=== PATIENT | female | born 1955 | race Caucasian/White ===

== ENCOUNTER 2020-06-19 20:43 | Inpatient (IN) | payer MEDICARE, OTHER, SELFPAY ==
[2020-06-19 20:52] VITALS: BP 154/82; PULSE 106; RESP 16; TEMP 37.2; O2SAT 99; BMI 30.6
--- NOTE | 2020-06-19 21:01 | PC.NURSE ---
IN ROOM FOR EVAL. REMOVED C-COLLAR. PT ARRIVES ALERT, RESPIRATIONS EASY, N/L. SKIN W/D. PT HAS DRESSINGS TO GRAY FEET. PT HAS GREAT TOE AMP TO RIGHT FOOT. PT HAS DIABETIC ULCER TO HEEL OF RIGHT FOOT AND DM ULCER TO BOTTOM OF LEFT FOOT. DRESSINGS REMOVED BY .
--- NOTE | 2020-06-19 21:12 | CT_ITS ---
EXAMINATION: CT HEAD WITHOUT CONTRAST CT CERVICAL SPINE WITHOUT CONTRAST CLINICAL INFORMATION: Multiple falls COMPARISON: None. TECHNIQUE: Imaging was performed from the skull base to vertex without intravenous administration of contrast. In addition, helical noncontrast CT imaging was acquired through the cervical spine and source images were reviewed along with axial reconstructions and sagittal and coronal MPRs. [This CT examination was performed using dose optimization techniques as appropriate, variously including the following: *Automated exposure control *Adjustment of mA and/or kV according to patient size (this includes techniques or standardized protocols for targeted exams where dose is matched to indication/reason for exam; i.e. extremities or head) *Use of iterative reconstruction technique] DLP: 942 mGy-cm FINDINGS: HEAD: No intracranial mass, hemorrhage, or midline shift is visualized. There is age-appropriate atrophy with prominence of the ventricles and the sulci. There are vascular calcifications of the internal carotid arteries bilaterally. No extra-axial collections are identified. The paranasal sinuses and mastoid air cells are well aerated. CERVICAL SPINE: There is no evidence of acute cervical spine fracture. Vertebral bodies remain normal in height. Cervical vertebrae have normal alignment. There is multilevel degenerative spondylosis of the cervical spine with disc height narrowing and endplate spurs and facet joint arthrosis No pre- or paravertebral soft tissue abnormality is identified. Limited assessment of the lung apices is unremarkable. CT/CT cervical spine wo con IMPRESSION: 1. No acute intracranial pathology. 2. No CT evidence of acute cervical spine fracture or traumatic subluxation
--- NOTE | 2020-06-19 21:13 | ECG_ITS ---
Test Reason : FALL Blood Pressure : / mmHG Vent. Rate : 100 BPM Atrial Rate : 100 BPM P-R Int : 130 ms QRS Dur : 088 ms QT Int : 388 ms P-R-T Axes : 057 020 050 degrees QTc Int : 500 ms Normal sinus rhythm Prolonged QT Abnormal ECG No previous ECGs available Referred By: Josiane Jules Electronically Signed By:KEREN RODGERS
--- NOTE | 2020-06-19 21:15 | ED.FALL ---
HPI - Fall General Chief Complaint: Fall Stated Complaint: BILATERAL ARM AND LEG PAIN S/P FALL Time Seen by Provider: 06/19/20 20:55 Source: patient Mode of arrival: EMS Limitations: no limitations History of Present Illness HPI Narrative: Patient comes to the emergency room complaining of 3 falls in 2 days. Patient states yesterday she had 2 falls, on the 1st fall she woke up on the floor because her phone started ringing. later yesterday she had a 2nd fall, patient states she tripped. Prior to arrival, patient had another fall. This time she decided to come to the emergency room. Patient has Life Alert, she was helped yesterday to get up, however patient keeps tripping and falling. Patient states she has no chest pain, no shortness of breath, no dizziness. Patient states she has history of multiple falls in the past. Patient denies being on blood thinners. patient states that she has neuropathy in her feet, however she is able to feel her feet. MD complaint: fall Related Data Allergies Allergy/AdvReac Type Severity Reaction Status Date / Time chlorthalidone Allergy Unknown ACUTE Unverified 03/28/20 18:54 [CHLORTHALIDONE] RENAL FAILURE Iodine and Iodide Containing Allergy Unknown UNKNOWN Unverified 03/28/20 18:54 Produc [IODINE AND IODIDE CONTAINING PRODUC] levofloxacin [From LEVAQUIN] AdvReac Unknown NAUSEA & Unverified 03/28/20 18:54 VOMITING Penicillins [PENICILLINS] AdvReac Unknown RASH Unverified 03/28/20 18:54 Sulfa (Sulfonamide AdvReac Unknown RASH Unverified 03/28/20 18:54 Antibiotics) [SULFA (SULFONAMIDE ANTIBIOTICS)] TAPE,PAPER Allergy Unknown UNKNOWN Uncoded 03/28/20 18:54 Review of Systems Review of Systems: Constitutional : No Weight loss, No Fever, No Chills, No Night Sweats, No Fatigue, No Malaise ENT/Mouth : No Hearing loss, No Ear Pain, No Nasal Congestion, No Sinus Pain, No Hoarseness, No sore throat, No Rhinorrhea, No Swallowing Difficulty Eyes: No Eye Pain, No Swelling, No Redness, No Foreign Body, No Discharge, No Vision Changes Cardiovascular : No Chest Pain, No SOB, No Dyspnea on Exertion, No Orthopnea, No Edema, No Palpitations Respiratory : No Cough, No Sputum, No Wheezing, No Smoke Exposure, No Dyspnea Gastrointestinal : No Nausea, No Vomiting, No Diarrhea, No Constipation, No abdominal Pain, No Hematochezia, No Melena Genitourinary : no irregular bleeding, No Dysuria, No Urinary Frequency, No Hematuria, No Urinary Incontinence, No Urgency, No Flank Pain, No Urinary Flow Changes, No Hesitancy Musculoskeletal : Patient complaining right shoulder pain, No Myalgias, No Joint Swelling Skin : chronic diabetic ulcers in both feet Neuro : No Weakness, No Numbness, No Paresthesias, 1 episode of loss of consciousness yesterday after a fall, No Dizziness, No Headache Psych : No Anxiety/Panic, No Depression, No SI/HI/AH/VH, No Social Issues, Heme/Lymph: No Bruising, No Bleeding,No Lymphadenopathy Endocrine : No Polyuria, No Polydipsia, No Temperature Intolerance [facility] Past Medical History Medical History (Updated 06/20/20 @ 03:32 by Josiane Jules MD) Carcinoid tumor Diabetic foot ulcers Hypertension Hypothyroidism Type 2 diabetes mellitus Social History Social History Advance Directives: No Advance Directives Information Provided: Yes Physical Exam Vital Signs: Vital Signs: Last Vital Signs Temp 98.9 F 06/19/20 20:52 Pulse 86 06/20/20 02:00 Resp 16 06/20/20 02:00 BP 143/68 H 06/20/20 02:00 Pulse Ox 97 06/20/20 02:00 Body Mass Index 30.6 Appearance: Alert. Oriented X3. No acute distress. Eyes: Pupils equal, round and reactive to light. ENT: Pharynx normal. Neck: Normal inspection. Neck supple. No lymph nodes noted. No crepitus CVS: Normal heart rate and rhythm. Pulses normal. Normal S1 and S2 Respiratory: No respiratory distress. Breath sounds normal. No Wheezing. No rales Abdomen: Soft and nontender. No rigidity. No distention. good BS x4 Skin: Skin warm and dry. bilateral large diabetic foot ulcers, clean, healing Extremities: No lower extremity edema. patient unable to abduct right arm due to pain in the right shoulder Neuro: Oriented X 3. No motor deficit. No sensory deficit. Moving all extermities. No slurred speech. Course Course Course Narrative: I discussed the labs with the patient, patient is being admitted. Patient's CPK likely secondary to being on the floor for a prolonged period of time. Patient's troponin 54.3, likely secondary to the elevated CPK, patient is asymptomatic, no chest pain or shortness of breath, EKG within normal limits. MDM - Fall Lab Data Result diagrams: 06/19/20 21:48 06/19/20 21:47 Labs: Lab Results 06/19/20 06/19/20 06/19/20 Range/Units 21:47 21:47 21:47 WBC (4.8-10.8) X10*3/uL RBC (4.20-5.50) X10*6/uL Hgb (12.0-16.0) g/dl Hct (37-47) % MCV (80-98) fL MCH (27.0-33.0) pg MCHC (31.0-35.0) g/dl RDW (11.0-16.0) % Plt Count (160-400) X10*3/uL MPV (9.4-12.3) fL Immature Gran % (Auto) (0.0-0.4) % Neut % (Auto) (45-73) % Lymph % (Auto) (20-40) % [place] % (Auto) (2-11) % Eos % (Auto) (0-4) % Baso % (Auto) (0-2) % Lymph # (Auto) (1.2-4.9) X10*3/uL [place] # (Auto) (0.1-1.2) X10*3/uL Eos # (Auto) (0.0-0.4) X10*3/uL Baso # (Auto) (0.0-0.2) X10*3/uL Abs Immat Gran (auto) (0.00-0.03) X10*3/uL Absolute Neuts (auto) (2.0-8.3) X10*3/uL Absolute Nucleated RBC (0.0-0.012) X10*3/uL Nucleated RBC % (auto) (0.0-0.2) /100WBC Sodium 129 L (135-145) mmol/L Potassium 4.0 (3.3-5.1) mmol/l Chloride 93 L (96-108) mmol/L Carbon Dioxide 24 (22-29) mmol/L Anion Gap 16 (12-20) BUN 24 H (9-16) mg/dL Creatinine 1.30 (0.5-1.4) mg/dL Estim Creat Clear Calc 46.3 Estimated GFR 41 Random Glucose 307 H (60-115) mg/dL Calcium 8.5 (8.4-10.2) mg/dL Magnesium 1.6 (1.6-2.6) mg/dL Total Bilirubin 0.3 (0.0-1.0) mg/dL Direct Bilirubin < 0.2 (0.0-0.5) mg/dL AST 169 H (5-31) U/L ALT 67 H (0-31) U/L Alkaline Phosphatase 93 (39-117) U/L Total Creatine Kinase 9438 H (26-140) U/L Troponin I High Sens 54.3 H (<3.5-17.0) ng/L Total Protein 7.1 (6.5-8.0) g/dL Albumin 3.7 (3.5-5.0) g/dL Urine Color Urine Appearance Urine pH (5.0-8.0) Ur Specific [place] (1.005-1.025) Urine Protein (NEG-TRACE) MG/DL Urine Glucose (UA) (NEG) MG/DL Urine Ketones (NEG) MG/DL Urine Blood (NEG) Urine Nitrite (NEG) Ur Leukocyte Esterase (NEG) Urine RBC (0) /HPF Urine WBC (0-4) /HPF Ur Squamous Epith Cells /LPF Urine Bacteria /LPF 06/19/20 06/19/20 Range/Units 21:48 22:58 WBC 13.9 H (4.8-10.8) X10*3/uL RBC 2.98 L (4.20-5.50) X10*6/uL Hgb 8.6 L (12.0-16.0) g/dl Hct 26.0 L (37-47) % MCV 87.2 (80-98) fL MCH 28.9 (27.0-33.0) pg MCHC 33.1 (31.0-35.0) g/dl RDW 12.5 (11.0-16.0) % Plt Count 428 H (160-400) X10*3/uL MPV 9.9 (9.4-12.3) fL Immature Gran % (Auto) 0.6 H (0.0-0.4) % Neut % (Auto) 78.9 H (45-73) % Lymph % (Auto) 9.1 L (20-40) % [place] % (Auto) 10.6 (2-11) % Eos % (Auto) 0.4 (0-4) % Baso % (Auto) 0.4 (0-2) % Lymph # (Auto) 1.3 (1.2-4.9) X10*3/uL [place] # (Auto) 1.5 H (0.1-1.2) X10*3/uL Eos # (Auto) 0.1 (0.0-0.4) X10*3/uL Baso # (Auto) 0.1 (0.0-0.2) X10*3/uL Abs Immat Gran (auto) 0.09 H (0.00-0.03) X10*3/uL Absolute Neuts (auto) 11.0 H (2.0-8.3) X10*3/uL Absolute Nucleated RBC 0.000 (0.0-0.012) X10*3/uL Nucleated RBC % (auto) 0.0 (0.0-0.2) /100WBC Sodium (135-145) mmol/L Potassium (3.3-5.1) mmol/l Chloride (96-108) mmol/L Carbon Dioxide (22-29) mmol/L Anion Gap (12-20) BUN (9-16) mg/dL Creatinine (0.5-1.4) mg/dL Estim Creat Clear Calc Estimated GFR Random Glucose (60-115) mg/dL Calcium (8.4-10.2) mg/dL Magnesium (1.6-2.6) mg/dL Total Bilirubin (0.0-1.0) mg/dL Direct Bilirubin (0.0-0.5) mg/dL AST (5-31) U/L ALT (0-31) U/L Alkaline Phosphatase (39-117) U/L Total Creatine Kinase (26-140) U/L Troponin I High Sens (<3.5-17.0) ng/L Total Protein (6.5-8.0) g/dL Albumin (3.5-5.0) g/dL Urine Color YELLOW Urine Appearance CLEAR Urine pH 5.5 (5.0-8.0) Ur Specific [place] 1.020 (1.005-1.025) Urine Protein 2+ H (NEG-TRACE) MG/DL Urine Glucose (UA) 100 H (NEG) MG/DL Urine Ketones NEG (NEG) MG/DL Urine Blood 3+ H (NEG) Urine Nitrite NEG (NEG) Ur Leukocyte Esterase NEG (NEG) Urine RBC 0-2 (0) /HPF Urine WBC 0 (0-4) /HPF Ur Squamous Epith Cells 1+ /LPF Urine Bacteria 1+ /LPF Imaging Data Shoulder x-ray: Radiologist's impression: There is loss of right humeral joint space with minimal superior subluxation suspicious for mild rotator cuff degeneration. Subchondral cystic changes and minimal sclerosis along the articulating humeral head. Mild periarticular spurring right AC joint is noted. No visible acute fracture or dislocation seen. The soft tissues are normal. XR/XR shoulder RT min 2V IMPRESSION: No acute fracture or dislocation. Mild degenerative changes right AC joint and glenohumeral joint. There Mild superior subluxation of humeral head in relation to glenoid likely RC degeneration or tear. head and neck CT: Radiologist's impression: HEAD: No intracranial mass, hemorrhage, or midline shift is visualized. There is age-appropriate atrophy with prominence of the ventricles and the sulci. There are vascular calcifications of the internal carotid arteries bilaterally. No extra-axial collections are identified. The paranasal sinuses and mastoid air cells are well aerated. CERVICAL SPINE: There is no evidence of acute cervical spine fracture. Vertebral bodies remain normal in height. Cervical vertebrae have normal alignment. There is multilevel degenerative spondylosis of the cervical spine with disc height narrowing and endplate spurs and facet joint arthrosis No pre- or paravertebral soft tissue abnormality is identified. Limited assessment of the lung apices is unremarkable. CT/CT head/brain wo con IMPRESSION: 1. No acute intracranial pathology. 2. No CT evidence of acute cervical spine fracture or traumatic subluxation ECG Data Attestation: I personally reviewed and interpreted this ECG as follows: ( normal sinus rhythm, heart rate 100, prolonged QTC 500) Discharge Plan Discharge Clinical Impression: Elevated CPK, Acute hyponatremia, Multiple falls Patient Disposition: Admitted As Inpatient
--- NOTE | 2020-06-19 21:17 | XR_ITS ---
EXAMINATION: XR SHOULDER, RIGHT CLINICAL INFORMATION: Fall, pain. COMPARISON: None TECHNIQUE: AP external rotation, Grashey, scapular Y, and axillary views of the right shoulder. FINDINGS: There is loss of right humeral joint space with minimal superior subluxation suspicious for mild rotator cuff degeneration. Subchondral cystic changes and minimal sclerosis along the articulating humeral head. Mild periarticular spurring right AC joint is noted. No visible acute fracture or dislocation seen. The soft tissues are normal. XR/XR shoulder RT min 2V IMPRESSION: No acute fracture or dislocation. Mild degenerative changes right AC joint and glenohumeral joint. There Mild superior subluxation of humeral head in relation to glenoid likely RC degeneration or tear.
[2020-06-19 22:00] VITALS: BP 149/72; PULSE 99; RESP 16; O2SAT 97
[2020-06-19 22:05] LABS: MANUAL DIFF FLAG NO
[2020-06-19 22:10] LABS: Basophils Absolute Auto 0.1 X10*3/uL (0.0-0.2); Basophils Percent Auto 0.4 % (0-2); Eosinophils Absolute Auto 0.1 X10*3/uL (0.0-0.4); Eosinophils Percent Auto 0.4 % (0-4); Hemoglobin 8.6 g/dl (12.0-16.0); Imm Gran Abs Auto 0.09 X10*3/uL (0.00-0.03); Imm Gran Pct Auto 0.6 % (0.0-0.4); Lymphocytes Absolute Auto 1.3 X10*3/uL (1.2-4.9); Lymphocytes Percent Auto 9.1 % (20-40); Mean Corpuscular HGB Conc 33.1 g/dl (31.0-35.0); Mean Corpuscular Hemoglobin 28.9 pg (27.0-33.0); Mean Corpuscular Volume 87.2 fL (80-98); Mean Platelet Volume 9.9 fL (9.4-12.3); Monocytes Absolute Auto 1.5 X10*3/uL (0.1-1.2); Monocytes Percent Auto 10.6 % (2-11); Neutrophils Percent Auto 78.9 % (45-73); Platelet Count 428 X10*3/uL (160-400); Red Blood Count 2.98 X10*6/uL (4.20-5.50); Red Cell Distribution Width 12.5 % (11.0-16.0); White Blood Count 13.9 X10*3/uL (4.8-10.8)
[2020-06-19 23:01] LABS: Alanine Aminotransferase 67 U/L (0-31); Albumin Level 3.7 g/dL (3.5-5.0); Alkaline Phosphatase 93 U/L (39-117); Anion Gap 16 (12-20); Aspartate Amino Transferase 169 U/L (5-31); Bilirubin Direct < 0.2 mg/dL (0.0-0.5); Bilirubin Total 0.3 mg/dL (0.0-1.0); Blood Urea Nitrogen 24 mg/dL (9-16); Calcium 8.5 mg/dL (8.4-10.2); Carbon Dioxide 24 mmol/L (22-29); Chloride 93 mmol/L (96-108); Creatinine Clr Calc Pharmacy 46.3; Estimated Glomerular Filt Rate 41; Glucose Random 307 mg/dL (60-115); Magnesium 1.6 mg/dL (1.6-2.6); Sodium 129 mmol/L (135-145); Total Protein 7.1 g/dL (6.5-8.0)
[2020-06-19 23:03] LABS: Glucose Urine UA 100 MG/DL (NEG); Leukocyte Esterase Urine NEG (NEG); Nitrite Urine NEG (NEG); PH 5.5 (5.0-8.0); Urine Blood 3+ (NEG); Urine Ketones NEG (NEG); Urine Protein 2+ MG/DL (NEG-TRACE)
[2020-06-19 23:07] LABS: Appearance Urine CLEAR; Color Urine YELLOW
[2020-06-19 23:13] LABS: Bacteria Urine 1+ /LPF; RBC Urine 0-2 /HPF (0); Squamous Epithelial Cell Urine 1+ /LPF; WBC Urine 0 /HPF (0-4)
[2020-06-19 23:38] LABS: Troponin-I High Sensitivity 54.3 ng/L (<3.5-17.0)
[2020-06-20] VITALS (11 sets, daily range): BP systolic 121–143; BP diastolic 58–80; PULSE 78–99; RESP 16–20; TEMP 36.2–36.7; O2SAT 92–100; BMI 30.6
--- NOTE | 2020-06-20 01:05 | PC.NURSE ---
PT C/O PAIN TO GRAY SHOULDERS AND RIGHT SIDE OF BODY. PT STATES I WOULD HAVE GONE TO [facility] IF I WOULD HAVE KNOWN THAT IS CANT GET ANY PAIN MEDS HERE MD AWARE. PT RATING PAIN 02/18. WILL CONTINUE TO MONITOR PT.
--- NOTE | 2020-06-20 02:29 | PC.NURSE ---
PT IS COMPLAINING ABOUT
[2020-06-20] MEDS: 0.9 % Sodium Chloride 1,000 ML 999 ML IV (03:09)
[2020-06-20] MEDS: 0.9 % Sodium Chloride 1,000 ML 999 ML IVCONT (03:40)
--- NOTE | 2020-06-20 03:41 | PC.NURSE ---
2NDL OF NS UP AND RUNNING W/O, SITE INTACT. AWAITING FURTHER ORDERS.
[2020-06-20 04:15] LABS: COVID-19 Test Negative (Negative)
[2020-06-20] MEDS: Acetaminophen 325 MG TABLET 650 MG PO (04:46)
[2020-06-20 05:12] LABS: Troponin-I High Sensitivity 42.2 ng/L (<3.5-17.0)
--- NOTE | 2020-06-20 05:13 | PC.NURSE ---
COVID SWAB OBTAINED TO LAB. 2ND L INFUSED W/O DIFFICULTY. PT UP TO COMMODE
--- NOTE | 2020-06-20 05:33 | PC.NURSE ---
floor unable to take report at this time. will return call.
--- NOTE | 2020-06-20 06:16 | P.HPHOSP_ITS ---
History of Present Illness Date of Service: 06/20/20 Chief Complaint: Falls This is a 65-year-old female with past medical history of hypertension, diabetes, carcinoid, and falls in the past who presents to the hospital with complaints of multiple falls at home. Patient reports that the 1st episode occurred on Wednesday after she came out of her bathroom, she fell on the floor, and woke up 4 hours later to the phone ringing. Patient does not remember anything of that episode, will cover confused, she denies any prodromal symptoms, she denies having any palpitations, dizziness, shortness of breath, chest pain or any other symptoms prior to the fall. She woke up DrMarifer herself to the bed. The same day in the evening, patient tried to go to the bathroom, and slipped and had a fall in her kitchen without hitting her head she was again on the floor for about 4 hours because she was too weak to get up.. She finally called [facility], EMS wanted to bring her to the hospital but patient refused. She reports that on Wednesday evening she was again walking around her apartment where she once again had a mechanical fall without loss of consciousness, she denies having any dizziness, vertigo, palpitations, chest pain, or loss of consciousness on the consecutive fall episodes. She finally agreed to come to the hospital after her 3rd fall. 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 Denies any melena or bright red blood per rectum Patient reports that she has not eaten well in last 24 hours but otherwise has been eating and drinking okay. She had few episodes of diarrhea where she took Lomotil and felt better, she denies any chest pain, no shortness of breath, no nausea or vomiting, no abdominal pain,, no urinary symptoms and no lower extremity edema. On arrival to the ED patient hemodynamically stable with no significant abnormal vitals Labs are significant for WBC count of 13.9, hemoglobin of 8.6, hematocrit 26.0, corrected sodium of 134, BUN of 24, creatinine of 1.30, random glucose of 307, AST of 169, ALT of 67, CPK of 9438, high sensitivity troponin of 54, repeated of 42.2. Past medical history: Hypertension, asthma, depression, diabetes with ne uropathy,carcinoid tumor Past surgical history: Liver lobectomy, cholecystectomy, appendectomy Family history: Significant for lung cancer in her father and sister, mom suffered from coronary artery disease Social history: Lives at home alone, uses a walker to ambulate, denies any tobacco alcohol or illicit drugs at this time Review of Systems 2 Review of Systems: Yes all other systems are reviewed and are negative [facility] Medical History (Updated 06/20/20 @ 06:52 by Jojo Mendoza MD) Carcinoid tumor Diabetic foot ulcers Hypertension Hypothyroidism Type 2 diabetes mellitus Social History Advance Directives: No Advance Directives Information Provided: Yes Meds Allergies Allergy/AdvReac Type Severity Reaction Status Date / Time chlorthalidone Allergy Unknown ACUTE Unverified 03/28/20 18:54 [CHLORTHALIDONE] RENAL FAILURE Iodine and Iodide Containing Allergy Unknown UNKNOWN Unverified 03/28/20 18:54 Produc [IODINE AND IODIDE CONTAINING PRODUC] levofloxacin [From LEVAQUIN] AdvReac Unknown NAUSEA & Unverified 03/28/20 18:54 VOMITING Penicillins [PENICILLINS] AdvReac Unknown RASH Unverified 03/28/20 18:54 Sulfa (Sulfonamide AdvReac Unknown RASH Unverified 03/28/20 18:54 Antibiotics) [SULFA (SULFONAMIDE ANTIBIOTICS)] TAPE,PAPER Allergy Unknown UNKNOWN Uncoded 03/28/20 18:54 Home Medications Medication Instructions Recorded Confirmed Type amlodipine 1 tab PO DAILY 06/20/20 06/20/20 History aspirin 81 mg PO 06/20/20 History cholecalciferol (vitamin D3) 800 units PO DAILY 06/20/20 06/20/20 History cyanocobalamin (vitamin B-12) 500 mcg PO DAILY 06/20/20 06/20/20 History doxycycline hyclate 1 tab PO BID 06/20/20 06/20/20 History duloxetine 1 cap PO QAM 06/20/20 06/20/20 History furosemide 1 tab PO DAILY 06/20/20 06/20/20 History levothyroxine 1 tab PO DAILY 06/20/20 06/20/20 History losartan 1 tab PO DAILY 06/20/20 06/20/20 History melatonin 2 tab PO BEDTIME 06/20/20 06/20/20 History metformin 2 tab PO BEDTIME 06/20/20 06/20/20 History metoprolol succinate 1 tab PO DAILY 06/20/20 06/20/20 History pantoprazole 1 tab PO DAILY 06/20/20 06/20/20 History simvastatin 1 tab PO BEDTIME 06/20/20 06/20/20 History trazodone 1 - 2 tab PO BEDTIME PRN 06/20/20 06/20/20 History Physical Exam Vital Signs and Narrative: Vital Signs: Last Vital Signs Temp 98.9 F 06/19/20 20:52 Pulse 89 06/20/20 04:00 Resp 18 06/20/20 04:00 BP 142/68 H 06/20/20 04:00 Pulse Ox 96 06/20/20 04:00 Body Mass Index 30.6 Const: General: cooperative and no acute distress Orientation/consciousness: patient oriented x3 Eyes: General: appearance normal, both eyes and all related structures Pupils: Equal, round and reactive pupils present Resp: Effort & Inspection: normal respiratory effort and able to speak in complete sentences Auscultation: clear to auscultation bilaterally Cardio: Rate: regular rate Rhythm: regular rhythm GI: Palpation (GI): Soft to palpation Auscultation: normal bowel sounds Skin: General skin exam: no rashes or lesions noted Neuro: General: patient oriented x3 Cranial nerves: Yes Equal, round and reactive pupils present Cognition (Neuro): normal cognition Extrem: General: Yes no pedal edema Results Labs CBC and Chem 7: 06/19/20 21:48 06/19/20 21:47 Labs: Laboratory Results - last 24 hr 06/19/20 06/19/20 06/19/20 21:47 21:47 21:47 MCV MCH MCHC RDW Plt Count MPV Immature Gran % (Auto) Neut % (Auto) Lymph % (Auto) B[place] % (Auto) Eos % (Auto) Baso % (Auto) Lymph # (Auto) [place] # (Auto) Eos # (Auto) Baso # (Auto) Abs Immat Gran (auto) Absolute Neuts (auto) Absolute Nucleated RBC Nucleated RBC % (auto) Anion Gap 16 Estim Creat Clear Calc 46.3 Estimated GFR 41 Random Glucose 307 H Calcium 8.5 Magnesium 1.6 Total Bilirubin 0.3 Direct Bilirubin < 0.2 AST 169 H ALT 67 H Alkaline Phosphatase 93 Total Creatine Kinase 9438 H Troponin I High Sens 54.3 H Total Protein 7.1 Albumin 3.7 Urine Color Urine Appearance Urine pH Ur Specific [place] Urine Protein Urine Glucose (UA) Urine Ketones Urine Blood Urine Nitrite Ur Leukocyte Esterase Urine RBC Urine WBC Ur Squamous Epith Cells Urine Bacteria COVID-19 ([facility]) COVID-19 Clin Com 06/19/20 06/19/20 06/20/20 21:48 22:58 03:48 MCV 87.2 MCH 28.9 MCHC 33.1 RDW 12.5 Plt Count 428 H MPV 9.9 Immature Gran % (Auto) 0.6 H Neut % (Auto) 78.9 H Lymph % (Auto) 9.1 L [place] % (Auto) 10.6 Eos % (Auto) 0.4 Baso % (Auto) 0.4 Lymph # (Auto) 1.3 [place] # (Auto) 1.5 H Eos # (Auto) 0.1 Baso # (Auto) 0.1 Abs Immat Gran (auto) 0.09 H Absolute Neuts (auto) 11.0 H Absolute Nucleated RBC 0.000 Nucleated RBC % (auto) 0.0 Anion Gap Estim Creat Clear Calc Estimated GFR Random Glucose Calcium Magnesium Total Bilirubin Direct Bilirubin AST ALT Alkaline Phosphatase Total Creatine Kinase Troponin I High Sens Total Protein Albumin Urine Color YELLOW Urine Appearance CLEAR Urine pH 5.5 Ur Specific [place] 1.020 Urine Protein 2+ H Urine Glucose (UA) 100 H Urine Ketones NEG Urine Blood 3+ H Urine Nitrite NEG Ur Leukocyte Esterase NEG Urine RBC 0-2 Urine WBC 0 Ur Squamous Epith Cells 1+ Urine Bacteria 1+ COVID-19 ([facility]) Negative COVID-19 Clin Com See Note 06/20/20 03:56 MCV MCH MCHC RDW Plt Count MPV Immature Gran % (Auto) Neut % (Auto) Lymph % (Auto) [place] % (Auto) Eos % (Auto) Baso % (Auto) Lymph # (Auto) [place] # (Auto) Eos # (Auto) Baso # (Auto) Abs Immat Gran (auto) Absolute Neuts (auto) Absolute Nucleated RBC Nucleated RBC % (auto) Anion Gap Estim Creat Clear Calc Estimated GFR Random Glucose Calcium Magnesium Total Bilirubin Direct Bilirubin AST ALT Alkaline Phosphatase Total Creatine Kinase Troponin I High Sens 42.2 H Total Protein Albumin Urine Color Urine Appearance Urine pH Ur Specific [place] Urine Protein Urine Glucose (UA) Urine Ketones Urine Blood Urine Nitrite Ur Leukocyte Esterase Urine RBC Urine WBC Ur Squamous Epith Cells Urine Bacteria COVID-19 ([facility]) COVID-19 Clin Com Imaging Radiologist's Impressions: Impressions Cervical Spine CT 06/19/20 21:12 IMPRESSION: 1. No acute intracranial pathology. 2. No CT evidence of acute cervical spine fracture or traumatic subluxation Head CT 06/19/20 21:12 IMPRESSION: 1. No acute intracranial pathology. 2. No CT evidence of acute cervical spine fracture or traumatic subluxation Shoulder X-Ray 06/19/20 21:17 IMPRESSION: No acute fracture or dislocation. Mild degenerative changes right AC joint and glenohumeral joint. There Mild superior subluxation of humeral head in relation to glenoid likely RC degeneration or tear. Assessment and Plan (1) Rhabdomyolysis: Status: Acute (2) FELIX (acute kidney injury): Status: Acute (3) Macrocytic anemia: Status: Acute (4) Multiple falls: Status: Acute (5) Type 2 diabetes mellitus: Status: Inactive (6) Hypertension: Status: Acute (7) Hypothyroidism: Status: Acute This is a 65-year-old female with past medical history as mentioned above who presents to the hospital with complaints of frequent falls. Found to have rhabdomyolysis, FELIX, might add and will be admitted for further management. # FELIX - most likely secondary to rhabdomyolysis, no baseline creatinine on file to compare but patient has elevated BUN and creatinine, and elevated CPK Plan: - IV fluids - hold some of the nephrotoxic medications including furosemide - will follow BMP # rhabdomyolysis - secondary to falls and being a mobile on the floor for more than 4 hours on multiple occasions - has mild FELIX as a result - will start patient on IV fluids - follow CPK # microcytic anemia - no baseline for comparison - has normal MCV, denies melena or bright red blood per rectum - will obtain ferritin level, B12, folic acid, - follow CBC # multiple falls - most likely multifactorial including in the setting of neuropathy - has no acute infection - will consult PT # diabetes mellitus - will hold metformin - start on low-dose sliding scale insulin - diabetic diet # hypertension -continue amlodipine, losartan, # hypothyroidism - continue levothyroxine DVT prophylaxis: Lovenox
[2020-06-20] MEDS: 0.9 % Sodium Chloride Flush 3 ML SYRINGE IVFLUSH (08:44)
[2020-06-20] MEDS: Insulin Lispro 100 UNIT/ML 3 ML VIAL SUBCUT ×4 (08:45→20:47)
[2020-06-20] MEDS: Enoxaparin Sodium 40 MG/0.4 ML SYRINGE SUBCUT (08:45)
[2020-06-20] MEDS: 0.9 % Sodium Chloride 1,000 ML 100 ML IVCONT ×2 (08:45→22:31)
[2020-06-20] MEDS: Omeprazole 20 MG CAPSULE.DR PO (08:45)
[2020-06-20] MEDS: Metoprolol Succinate ER 50 MG TAB.ER.24H PO (08:46)
[2020-06-20] MEDS: amLODIPine Besylate 10 MG TABLET PO (08:46)
[2020-06-20] MEDS: Losartan Potassium 50 MG TABLET PO (08:46)
[2020-06-20] MEDS: DULoxetine HCl 60 MG CAPSULE.DR PO (08:46)
[2020-06-20 09:01] LABS: Glucose, Whole Blood 248 mg/dL (60-115)
--- NOTE | 2020-06-20 10:11 | MHC.CM.PN ---
CM met with patient who reports she lives alone and amb with a walker, has been having difficulty with falls r/t neuropathy and toe amp. Patient states her HCP is her sister Marcia [phone], copy requested. Discussed discharge plan, patient is active with [facility], referral made via [facility] and requesting home PT. [facility] will provide transport. CM will continue to follow patient for discharge needs.
--- NOTE | 2020-06-20 10:32 | CA_ITS ---
Transthoracic Echocardiogram Patient (Last, First, Middle): Zara Hoffman, Gender: Female Date of : 1955 Age: 65 Procedure Date: 06/20/2020 Procedure Type: Transthoracic [place] [facility] [place]: 167.64 cm Weight: 75.75 kg BSA: 1.85 m2 Heart Rate: bpm BP: 126 / 58 mmHg Couture Alterations Dressmaker: MARY Referring MD: Marcella XIE Symptoms: syncope Study Quality: Good ECG Rhythm: Sinus Conclusions: - The left ventricular systolic function is low normal. The visually estimated ejection fraction is between 50-55%. - No obvious valvular pathology seen on this study. Findings Left Ventricle Normal left ventricular cavity size. There is normal left ventricular wall thickness. The left ventricular systolic function is low normal. The visually estimated ejection fraction is between 50-55%. There is no evidence of regional wall motion abnormalities. Diastolic function is normal for age. Right Ventricle Normal right ventricular cavity size and systolic function. Aortic Valve There is a normal trileaflet aortic valve. There is no aortic valve stenosis. There is trace (trivial) aortic valve regurgitation. Mitral Valve There is mild anterior mitral leaflet thickening. There is trace mitral valve regurgitation. There is no mitral valve stenosis. Pulmonic Valve The pulmonic valve was not well visualized. Tricuspid Valve Normal tricuspid valve structure. There is trace tricuspid valve regurgitation. The pulmonary artery systolic pressure is normal. Great Vessels The asc aorta and aortic arch are normal in size. Venous The inferior vena cava is normal in size and collapses greater than 50% with inspiration. Pericardium/Pleural There is no evidence of pericardial effusion. Prior Study Comparison No prior study available for comparison. Recommendations, Care & Conclusions No obvious valvular pathology seen on this study. Measurements 2D Linear Measurements RVIDd: 2.43 RVIDd Index: 1.31 IVSd: 0.84 0.6-0.9/0.6-1.0 cm LVIDd: 5.13 3.9-5.3/4.2-5.9 cm LVIDd Index: 2.77 2.4-3.2/2.2-3.1 cm/m2 LVIDs: 2.87 2.0-3.6 cm LVPWd: 1.16 0.7-1.1 cm Ao Root: 3.10 2.1-3.5 cm LA Diam: 3.70 2.7-3.8/3.0-4.0 cm LAIDs Index: 2.00 1.5-2.3 cm/m2 LV Mass: 236.56 67-162/88-224 g LV Mass Index: 127.87 43-95/49-115 g/m2 LVOT Diam: 2.30 3.0+(-)1.3 cm 2D Systolic Function EF 4C: 49.40 >55% EF 2C: 46.00 >55% EF BiP: 48.90 >55% Mitral Valve MV Pk E: 0.78 MV PK A: 0.81 MV Decel Time: 198.00 E/A: 1.00 E'Lateral: 7.07 E'Medial: 4.90 E/E' Med: 15.90 E/E' Lat: 11.00 Aortic Valve AoV Pk Darnell: 1.74 AoV Mn Darnell: 1.22 AoV VTI: 0.28 AoV Pk Grad: 12.00 Aov Mn Grad: 7.00 SATISH Cont.VTI: 2.70 LVOT LVOT Pk Darnell: 1.08 LVOT Mn Darnell: 0.72 LVOT VTI: 0.18 LVOT Pk Grad: 5.00 LVOT Mn Grad: 2.00 LVOT Diam: 2.30 LVOT Area: 4.15 Diastolic Function MV Pk E: 0.78 MV Pk A: 0.81 E/A: 1.00 E'Medial: 4.90 E/E' Med: 15.90 E' Laterial: 7.07 E/E' Lat: 11.00 Tricuspid Valve RA Press: 3.00 Great Vessels Aorta Ao Root-2D: 3.10 2.0-3.7 cm Ao Asc: 2.70 2.1-3.4 cm Ao Arch: 2.80 Updated in Other Vendor System with Status of Final Sam Sanabria MD electronically signed on 06/20/2020 5:07:42 PM with status of Final
[2020-06-20 11:06] LABS: Glucose, Whole Blood 360 mg/dL (60-115)
[2020-06-20 11:21] LABS: Alanine Aminotransferase 56 U/L (0-31); Albumin Level 3.1 g/dL (3.5-5.0); Alkaline Phosphatase 80 U/L (39-117); Anion Gap 17 (12-20); Aspartate Amino Transferase 124 U/L (5-31); Bilirubin Direct < 0.2 mg/dL (0.0-0.5); Bilirubin Total < 0.2 mg/dL (0.0-1.0); Blood Urea Nitrogen 15 mg/dL (9-16); Calcium 8.4 mg/dL (8.4-10.2); Carbon Dioxide 20 mmol/L (22-29); Chloride 103 mmol/L (96-108); Creatinine Clr Calc Pharmacy 64.8; Estimated Glomerular Filt Rate > 60; Glucose Random 275 mg/dL (60-115); Potassium 4.1 mmol/l (3.3-5.1); Sodium 136 mmol/L (135-145); Total Protein 6.4 g/dL (6.5-8.0)
[2020-06-20 11:35] LABS: Folate 11.3 ng/mL (> or = 4.0); Vitamin B12 1317 pg/mL (200-900)
[2020-06-20 12:15] LABS: Ferritin 143 ng/mL (10-250)
--- NOTE | 2020-06-20 13:24 | P.CNNE_ITS ---
History of Present Illness Data of Consult Service Date: 06/20/20 Primary Care Provider: Jessie Sorensen MD 65 years old woman with underlying history of diabetes and its complications living alone was brought to hospital after she passed out. She said that she had been falling frequently after losing balance or getting dizzy. She denied that previous dizziness included any mental confusion. This time in early afternoon she found herself on the ground. According to her many hours of past and she had no recollection of what had happened. There was no obvious physical injury. She had urinated. She denied any previous loss of consciousness. There was no associated cold or flu-like illness or cardiac symptoms. [facility] [place] Past Medical History Medical History (Updated 06/20/20 @ 13:27 by Payton Stokes MD) Carcinoid tumor Diabetic foot ulcers Hypertension Hypothyroidism Type 2 diabetes mellitus Social History Social History Household Members: None Housing: Apartment Do you presently have visiting nurse or other home services: Yes Smoking Status: Never smoker Second Hand Smoke Exposure: No Use of substances other than those prescribed or required for medical reasons: No Currently Displaying Signs/Symptoms of Drug Intoxication Withdrawal: No Have you been hit, kicked, punched, or otherwise hurt by someone within the past year? If so, by whom?: No Do you feel safe in your current relationship?: No Current Relationship Is there a partner from a previous relationship who is making you feel unsafe now?: No Are you made to feel afraid or neglected: No Advance Directives: No Advance Directives Information Provided: Yes Do you have thoughts of harming others: None Do you have a plan to hurt others: No Plan Recently lost weight without trying: No service: No Current occupational status: retired Meds Allergies Allergy/AdvReac Type Severity Reaction Status Date / Time chlorthalidone Allergy Unknown ACUTE Verified 06/20/20 11:43 [CHLORTHALIDONE] RENAL FAILURE Iodine and Iodide Containing Allergy Unknown UNKNOWN Verified 06/20/20 11:43 Produc [IODINE AND IODIDE CONTAINING PRODUC] levofloxacin [From LEVAQUIN] AdvReac Unknown NAUSEA & Verified 06/20/20 11:43 VOMITING Penicillins [PENICILLINS] AdvReac Unknown RASH Verified 06/20/20 11:43 Sulfa (Sulfonamide AdvReac Unknown RASH Verified 06/20/20 11:43 Antibiotics) [SULFA (SULFONAMIDE ANTIBIOTICS)] TAPE,PAPER Allergy Unknown UNKNOWN Uncoded 03/28/20 18:54 Home Medications Medication Instructions Recorded Confirmed Type amlodipine 1 tab PO DAILY 06/20/20 06/20/20 History aspirin 81 mg PO BEDTIME 06/20/20 06/20/20 History cholecalciferol (vitamin D3) 800 units PO DAILY 06/20/20 06/20/20 History cyanocobalamin (vitamin B-12) 500 mcg PO DAILY 06/20/20 06/20/20 History diclofenac sodium 2 g TOPICAL BID 06/20/20 06/20/20 History doxycycline hyclate 1 tab PO BID 06/20/20 06/20/20 History duloxetine 1 cap PO QAM 06/20/20 06/20/20 History furosemide 1 tab PO DAILY 06/20/20 06/20/20 History insulin glargine [Lantus Solostar 40 unit SUBCUT BEDTIME 06/20/20 06/20/20 History U-100 Insulin] levothyroxine 1 tab PO DAILY 06/20/20 06/20/20 History losartan 1 tab PO DAILY 06/20/20 06/20/20 History melatonin 2 tab PO BEDTIME 06/20/20 06/20/20 History metformin 2 tab PO BEDTIME 06/20/20 06/20/20 History metoprolol succinate 1 tab PO DAILY 06/20/20 06/20/20 History pantoprazole 1 tab PO DAILY 06/20/20 06/20/20 History risperidone [Risperdal] 0.25 mg PO BEDTIME 06/20/20 06/20/20 History simvastatin 1 tab PO BEDTIME 06/20/20 06/20/20 History trazodone 1 - 2 tab PO BEDTIME PRN 06/20/20 06/20/20 History Physical Exam Vital Signs: Vital Signs: Last Vital Signs Temp 97.1 F 06/20/20 11:02 Pulse 88 06/20/20 11:02 Resp 18 06/20/20 11:02 BP 126/58 L 06/20/20 11:02 Pulse Ox 99 06/20/20 11:02 Body Mass Index 30.6 She was alert and awake with normal spontaneity of speech fluency comprehension and affect. Face was symmetrical. External ocular muscles were intact. Visual ellis are full. There was significant edema of legs with loss of reflexes. Right toe has been amputated. Plantars were flat. There was no obvious weakness of upper extremities. Affect was normal. Results Labs CBC & Chem 7: 06/19/20 21:48 06/20/20 09:33 Labs: Short CBC 06/19/20 Range/Units 21:48 WBC 13.9 H (4.8-10.8) X10*3/uL Hgb 8.6 L (12.0-16.0) g/dl Hct 26.0 L (37-47) % Plt Count 428 H (160-400) X10*3/uL BMP 06/19/20 06/20/20 06/20/20 21:47 09:33 09:33 Sodium 129 L 136 Cancelled Potassium 4.0 4.1 Cancelled Chloride 93 L 103 Cancelled Carbon Dioxide 24 20 L Cancelled BUN 24 H 15 Cancelled Creatinine 1.30 0.93 Cancelled Calcium 8.5 8.4 Cancelled Cardiac Enzymes 06/19/20 06/20/20 Range/Units 21:47 09:33 Total Creatine Kinase 9438 H 5840 H D (26-140) U/L Liver Function 06/19/20 06/20/20 Range/Units 21:47 09:33 Total Bilirubin 0.3 < 0.2 (0.0-1.0) mg/dL Direct Bilirubin < 0.2 < 0.2 (0.0-0.5) mg/dL AST 169 H 124 H (5-31) U/L ALT 67 H 56 H (0-31) U/L Alkaline Phosphatase 93 80 (39-117) U/L Albumin 3.7 3.1 L (3.5-5.0) g/dL Urine 06/19/20 Range/Units 22:58 Urine Color YELLOW Urine Appearance CLEAR Urine pH 5.5 (5.0-8.0) Ur Specific [place] 1.020 (1.005-1.025) Urine Protein 2+ H (NEG-TRACE) MG/DL Urine Glucose (UA) 100 H (NEG) MG/DL Noncontrast head CT did not reveal any acute abnormality. Mild cerebral atrophy and mild microvascular ischemic changes were noted. Assessment and Plan (1) Multiple falls: Status: Acute Probably from combination of diabetic neuropathy and arthritis. There is no specific treatment other than common sense and use of walker or wheelchair. (2) Syncope and collapse: Status: Acute Loss of consciousness or syncope from unclear etiology. A routine EEG is recommended to rule out possibility of seizure disorder
[2020-06-20] MEDS: traMADoL HCL 50 MG TABLET PO (14:15)
--- NOTE | 2020-06-20 16:24 | PM.EVENT ---
Documented by User: ANNE-MARIE Fernandez 06/20/20 16:33 Event Note Date of Service: 06/20/20 Event Note: This is a 65-year-old female admitted this due to falls and rhabdomyolysis. Rhabdo Secondary to falls. CPK improving Continue IV fluid FELIX Creatinine improved with IV fluid Falls PT recommends home PT upon discharge Mild hyponatremia on admission Resolved ?Syncope/frequent falls Orthostatic blood pressures negative trop flat x 2 Echocardiogram pending Neurology consult pending Anemia Check iron studies. B12 normal limits Check fecal occult blood Follow CBC leukocytosis ?reactive No source of infection identified Follow CBC This case was discussed with Dr. Monterroso Documented by User: Laura Monterroso MD 06/20/20 17:04 Event Note Date of Service: 06/20/20
[2020-06-20 16:29] LABS: Glucose, Whole Blood 205 mg/dL (60-115)
[2020-06-20 17:15] LABS: Iron 18 mcg/dL (30-160); Percent Iron Saturation 7 % (15-50); Total Iron Binding Capacity 246 mcg/dL (228-428); Unsaturated Iron Binding 228 ug/dL
[2020-06-20] MEDS: metFORMIN HCl 1,000 MG TABLET 2000 MG PO (17:37)
[2020-06-20 20:16] LABS: Glucose, Whole Blood 197 mg/dL (60-115)
[2020-06-20] MEDS: traZODone HCL 50 MG TABLET PO (20:48)
[2020-06-20] MEDS: Atorvastatin Calcium 10 MG TABLET PO (20:48)
[2020-06-20] MEDS: Insulin Glargine,Hum.rec.anlog 100 UNIT/ML 10 ML VIAL 40 UNIT SUBCUT (20:48)
[2020-06-20 20:50] LABS: Glucose, Whole Blood 203 mg/dL (60-115)
--- NOTE | 2020-06-20 22:43 | PC.NURSE ---
Pt able to make needs known. Ambulated to bathroom with walker. Able to swallow pills. repo's self
[2020-06-21 04:00] VITALS: BP 161/73; PULSE 94; RESP 20; TEMP 36.3; O2SAT 94
[2020-06-21 04:48] LABS: MANUAL DIFF FLAG NO
[2020-06-21 04:52] LABS: Basophils Absolute Auto 0.1 X10*3/uL (0.0-0.2); Basophils Percent Auto 0.5 % (0-2); Eosinophils Absolute Auto 0.2 X10*3/uL (0.0-0.4); Hematocrit 23.9 % (37-47); Hemoglobin 7.8 g/dl (12.0-16.0); Imm Gran Abs Auto 0.06 X10*3/uL (0.00-0.03); Imm Gran Pct Auto 0.5 % (0.0-0.4); Lymphocytes Absolute Auto 1.7 X10*3/uL (1.2-4.9); Mean Corpuscular HGB Conc 32.6 g/dl (31.0-35.0); Mean Corpuscular Hemoglobin 28.8 pg (27.0-33.0); Mean Corpuscular Volume 88.2 fL (80-98); Mean Platelet Volume 9.5 fL (9.4-12.3); Monocytes Absolute Auto 1.2 X10*3/uL (0.1-1.2); Monocytes Percent Auto 10.7 % (2-11); Neutrophils Absolute Auto 7.9 X10*3/uL (2.0-8.3); Neutrophils Percent Auto 71.3 % (45-73); Platelet Count 387 X10*3/uL (160-400); Red Blood Count 2.71 X10*6/uL (4.20-5.50); Red Cell Distribution Width 12.4 % (11.0-16.0); White Blood Count 11.1 X10*3/uL (4.8-10.8)
[2020-06-21 05:34] LABS: Anion Gap 15 (12-20); Blood Urea Nitrogen 14 mg/dL (9-16); Calcium 8.3 mg/dL (8.4-10.2); Carbon Dioxide 21 mmol/L (22-29); Chloride 104 mmol/L (96-108); Creatinine Clr Calc Pharmacy 69.3; Estimated Glomerular Filt Rate > 60; Glucose Random 170 mg/dL (60-115); Potassium 3.8 mmol/l (3.3-5.1); Sodium 136 mmol/L (135-145)
--- NOTE | 2020-06-21 06:08 | PC.NURSE ---
pt has dibetic foot ulcers on left foot and right heel foam drsgs changed, due soiled and mod. serousenguines drainage, ambulated to br with walker unsteady gait
[2020-06-21] MEDS: Enoxaparin Sodium 40 MG/0.4 ML SYRINGE SUBCUT (06:33)
[2020-06-21] MEDS: Omeprazole 20 MG CAPSULE.DR PO (06:33)
[2020-06-21] MEDS: Acetaminophen 325 MG TABLET 650 MG PO ×2 (06:38→16:19)
[2020-06-21 08:00] VITALS: BP 136/63; PULSE 79; RESP 20; TEMP 36.2; O2SAT 98
[2020-06-21 08:47] VITALS: BP 136/63; PULSE 80
[2020-06-21] MEDS: Losartan Potassium 50 MG TABLET PO (08:47)
[2020-06-21] MEDS: Insulin Lispro 100 UNIT/ML 3 ML VIAL SUBCUT ×3 (08:47→17:08)
[2020-06-21] MEDS: Metoprolol Succinate ER 50 MG TAB.ER.24H PO (08:47)
[2020-06-21] MEDS: DULoxetine HCl 60 MG CAPSULE.DR PO (08:48)
[2020-06-21] MEDS: amLODIPine Besylate 10 MG TABLET PO (08:48)
[2020-06-21] MEDS: 0.9 % Sodium Chloride 1,000 ML 100 ML IVCONT ×2 (08:57→22:08)
[2020-06-21 09:07] LABS: Glucose, Whole Blood 164 mg/dL (60-115)
[2020-06-21 11:41] VITALS: BP 116/64; PULSE 82; RESP 20; TEMP 37; O2SAT 100
[2020-06-21 12:00] LABS: Glucose, Whole Blood 251 mg/dL (60-115)
[2020-06-21] MEDS: traMADoL HCL 50 MG TABLET PO ×2 (12:14→23:01)
--- NOTE | 2020-06-21 14:11 | MHC.CM.PN ---
Patient is on IV fluids. Discharge plan is home with services from [facility]. Sister Marcia will provide transport. CM will continue to follow for discharge needs.
[2020-06-21 15:27] VITALS: BP 131/64; PULSE 86; RESP 20; TEMP 36.5; O2SAT 96
[2020-06-21] MEDS: 0.9 % Sodium Chloride Flush 3 ML SYRINGE IVFLUSH (16:19)
--- NOTE | 2020-06-21 16:38 | HO.PM.IMPN ---
Subjective Subjective Date of Service: 06/21/20 Interval History: the patient was seen and evaluated this morning Laying in bed, feels comfortable, complaining of pain on multiple areas from the fall mainly in the buttock Denies any episode of bleeding or dark stools Denies any fever, chills or shortness of breath No reported other overnight events. Systemic review: No fever, chills but reports feeling tired and in pain No chest pain, palpitation No shortness of breath or coughing No abdominal pain, nausea or vomiting No urinary symptoms No any rash or wounds Physical Exam Vital Signs: Vital Signs: Last Vital Signs Temp 97.7 F 06/21/20 15:27 Pulse 86 06/21/20 15:27 Resp 20 06/21/20 15:27 BP 131/64 06/21/20 15:27 Pulse Ox 96 06/21/20 15:27 Body Mass Index 30.6 Constitutional : Alert, oriented, not in distress Neck : Normal inspection, Supple Cardiovascular : RRR, S1 S2, no lower extremity edema Respiratory : Good bilateral air entry, no crackles, wheezes or rhonchi Gastrointestinal: soft, lax, Normal bowel sounds, Non tender Skin : Warm/Dry, No rash Neurological : Alert & oriented x3, No focal deficit Objective Data Current Medications Generic Name Dose Route Start Last Admin Trade Name Freq PRN Reason Stop Dose Admin Acetaminophen 650 mg 06/20/20 06:39 06/21/20 16:19 Acetaminophen 325 Mg Tablet PO 650 mg Q6H PRN Administration Pain, Mild (Pain Scale 1-3) Amlodipine Besylate 10 mg 06/20/20 09:00 06/21/20 08:48 Amlodipine Besylate 10 Mg Tablet PO 10 mg DAILY [facility] Administration Protocol Atorvastatin Calcium 10 mg 06/20/20 21:00 06/20/20 20:48 Atorvastatin Calcium 10 Mg Tablet PO 10 mg BEDTIME [facility] Administration Docusate Sodium 100 mg 06/20/20 06:39 Docusate Sodium 100 Mg Capsule PO DAILY PRN Constipation Duloxetine HCl 60 mg 06/20/20 09:00 06/21/20 08:48 Duloxetine Hcl 60 Mg Capsule.Dr PO 60 mg DAILY [facility] Administration Enoxaparin Sodium 40 mg 06/20/20 07:00 06/21/20 06:33 Enoxaparin Sodium 40 Mg/0.4 Ml Syringe SUBCUT 40 mg Q24H [facility] Administration Sodium Chloride 1,000 mls @ 100 mls/hr 06/20/20 06:39 06/21/20 08:57 Ns IVCONT 100 mls/hr .Q10H [facility] Administration Insulin Glargine 40 unit 06/20/20 21:00 06/20/20 20:48 Insulin Glargine,Hum.Rec.Anlog 100 Unit/Ml 10 Ml Vial SUBCUT 40 unit BEDTIME [facility] Administration Insulin Human Lispro 0 unit 06/20/20 07:30 06/21/20 12:14 Insulin Lispro 100 Unit/Ml 3 Ml Vial SUBCUT 6 unit QIDACHS [facility] Administration Protocol Losartan Potassium 50 mg 06/20/20 09:00 06/21/20 08:47 Losartan Potassium 50 Mg Tablet PO 50 mg DAILY [facility] Administration Protocol Metformin HCl 2,000 mg 06/20/20 17:00 06/20/20 17:37 Metformin Hcl 1,000 Mg Tablet PO 2,000 mg DAILY@1700 [facility] Administration Metoprolol Succinate 50 mg 06/20/20 09:00 06/21/20 08:47 Metoprolol Succinate Er 50 Mg Tab.Er.24h PO 50 mg DAILY [facility] Administration Protocol Omeprazole 20 mg 06/20/20 07:30 06/21/20 06:33 Omeprazole 20 Mg Capsule.Dr PO 20 mg DAILY@0630 [facility] Administration Ondansetron HCl 4 mg 06/20/20 06:39 Ondansetron Hcl 4 Mg/2 Ml Vial IVPUSH Q8H PRN Nausea and Vomiting Pharmacy Consult 1 each 06/20/20 03:31 Consult Rx Perform Med Rec MISCELLANE ONCE PRN Consult order Sodium Chloride 3 ml 06/20/20 08:00 06/21/20 16:19 0.9 % Sodium Chloride Flush 3 Ml Syringe IVFLUSH 3 ml QSHIFT [facility] Administration Tramadol HCl 50 mg 06/20/20 10:32 06/21/20 12:14 Tramadol Hcl 50 Mg Tablet PO 50 mg Q8H PRN Administration Pain, Moderate (Pain Scale 4-6 Trazodone HCl 50 mg 06/20/20 06:43 06/20/20 20:48 Trazodone Hcl 50 Mg Tablet PO 50 mg BEDTIME PRN Administration insomnia Labs CBC & Chem 7: 06/21/20 04:40 06/21/20 04:40 Assessment and Plan (1) Rhabdomyolysis: Status: Acute (2) FELIX (acute kidney injury): Status: Acute (3) Macrocytic anemia: Status: Acute (4) Multiple falls: Status: Acute (5) Type 2 diabetes mellitus: Status: Inactive (6) Hypertension: Status: Acute (7) Hypothyroidism: Status: Acute (8) Syncope and collapse: Status: Acute (9) Acute hyponatremia: Status: Acute Assessment and Plan: This is a 65-year-old female with past medical history as mentioned above who presents to the hospital with complaints of frequent falls. Found to have rhabdomyolysis, FELIX. admitted for further management. FELIX Improving secondary to rhabdomyolysis Continue IV fluids Hold furosemide Monitor intake and output Monitor BMP rhabdomyolysis Secondary to fall and muscle breakdown Continue the IV fluids CPK down to 3000 continue to monitor on daily basis Microcytic anemia Patient reports having anemia before but she cannot remember the exact numbers, no baseline for comparison Hemoglobin of 7.8 today, part of it is dilutional has normal MCV, denies melena or bright red blood per rectum Low iron level and saturation Normal ferritin level, B12, folic acid Pending occult blood follow CBC Syncope and collapse Multiple falls CT head negative for any acute findings likely multifactorial, diabetic neuropathy, postural hypotension, physical deconditioning Neurology input appreciated PT evaluation Hyperglycemia secondary to diabetes mellitus hold metformin Continue low-dose sliding scale insulin diabetic diet hypertension continue amlodipine, losartan, hypothyroidism continue levothyroxine DVT prophylaxis Lovenox
[2020-06-21] MEDS: metFORMIN HCl 1,000 MG TABLET 2000 MG PO (17:08)
[2020-06-21 19:36] VITALS: BP 146/69; PULSE 90; RESP 20; TEMP 37; O2SAT 100
[2020-06-21 19:52] LABS: Glucose, Whole Blood 173 mg/dL (60-115)
[2020-06-21 20:39] LABS: Glucose, Whole Blood 125 mg/dL (60-115)
[2020-06-21] MEDS: Atorvastatin Calcium 10 MG TABLET PO (20:48)
[2020-06-21] MEDS: traZODone HCL 50 MG TABLET PO (20:49)
[2020-06-22] VITALS (9 sets, daily range): BP systolic 150–193; BP diastolic 63–93; PULSE 70–107; RESP 18–25; TEMP 36.1–37.1; O2SAT 94–100
--- NOTE | 2020-06-22 | XR_ITS ---
EXAMINATION: XR CHEST CLINICAL INFORMATION: Cough. Respiratory symptoms. COMPARISON: None TECHNIQUE: Frontal view of the chest was obtained. FINDINGS: Lungs are well expanded and clear. No focal interstitial infiltrate, consolidation or pleural effusion. Cardiac silhouette is normal in size. Pulmonary vessels are normal in caliber. 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 XR/XR chest 1V IMPRESSION: No acute cardiopulmonary findings.
[2020-06-22] MEDS: ondansetron HCL 4 MG/2 ML VIAL IVPUSH ×2 (05:47→13:10)
[2020-06-22] MEDS: Omeprazole 20 MG CAPSULE.DR PO (05:48)
[2020-06-22 06:02] LABS: Glucose, Whole Blood 266 mg/dL (60-115)
[2020-06-22] MEDS: Enoxaparin Sodium 40 MG/0.4 ML SYRINGE SUBCUT (06:26)
[2020-06-22 06:57] LABS: Hematocrit 27.6 % (37-47); Hemoglobin 9.1 g/dl (12.0-16.0); Mean Corpuscular Hemoglobin 28.6 pg (27.0-33.0); Mean Corpuscular Volume 86.8 fL (80-98); Mean Platelet Volume 10.6 fL (9.4-12.3); Platelet Count 402 X10*3/uL (160-400); Red Blood Count 3.18 X10*6/uL (4.20-5.50); Red Cell Distribution Width 12.2 % (11.0-16.0); White Blood Count 18.9 X10*3/uL (4.8-10.8)
[2020-06-22 07:19] LABS: Anion Gap 19 (12-20); Blood Urea Nitrogen 8 mg/dL (9-16); Calcium 8.6 mg/dL (8.4-10.2); Carbon Dioxide 18 mmol/L (22-29); Chloride 100 mmol/L (96-108); Creatinine Clr Calc Pharmacy 76.3; Estimated Glomerular Filt Rate > 60; Glucose Random 275 mg/dL (60-115); Potassium 3.9 mmol/l (3.3-5.1); Sodium 133 mmol/L (135-145)
[2020-06-22 08:15] LABS: Glucose, Whole Blood 300 mg/dL (60-115)
[2020-06-22] MEDS: Insulin Lispro 100 UNIT/ML 3 ML VIAL SUBCUT ×4 (08:58→21:49)
[2020-06-22] MEDS: 0.9 % Sodium Chloride Flush 3 ML SYRINGE IVFLUSH ×3 (09:02→20:32)
[2020-06-22] MEDS: 0.9 % Sodium Chloride 1,000 ML 100 ML IVCONT ×2 (09:04→18:21)
[2020-06-22 11:51] LABS: Glucose, Whole Blood 275 mg/dL (60-115)
--- NOTE | 2020-06-22 15:05 | HO.PM.IMPN ---
Subjective Subjective Date of Service: 06/22/20 Interval History: the patient was seen and evaluated this morning Multiple episodes of vomiting overnight, feels tired and lethargic Denies any episode of bleeding or dark stools Denies any fever, chills or shortness of breath No reported other overnight events. Systemic review: No fever, chills but reports feeling tired and in pain No chest pain, palpitation She denies shortness of breath but reported coughing and feeling some tightness in her chest No abdominal pain, but has been vomiting overnight No urinary symptoms No any rash or wounds Physical Exam Vital Signs: Vital Signs: Last Vital Signs Temp 97.7 F 06/22/20 14: Pulse 105 H 06/22/20 14: Resp 25 H 06/22/20 14:20 BP 168/71 H 06/22/20 14:20 Pulse Ox 98 06/22/20 14:20 Body Mass Index 30.6 Constitutional : Alert, oriented, feels uncomfortable and nauseated Neck : Normal inspection, Supple Cardiovascular : RRR, S1 S2, no lower extremity edema Respiratory : Fair bilateral air entry, no crackles, wheezes or rhonchi Gastrointestinal: soft, lax, Normal bowel sounds, Non tender Skin : Warm/Dry, No rash Neurological : Alert & oriented x3, No focal deficit Objective Data Current Medications Generic Name Dose Route Start Last Admin Trade Name Freq PRN Reason Stop Dose Admin Acetaminophen 650 mg 06/20/20 06:39 06/21/20 16:19 Acetaminophen 325 Mg Tablet PO 650 mg Q6H PRN Administration Pain, Mild (Pain Scale 1-3) Amlodipine Besylate 10 mg 06/20/20 09:00 06/22/20 09:00 Amlodipine Besylate 10 Mg Tablet PO Not Given DAILY [facility] Protocol Atorvastatin Calcium 10 mg 06/20/20 21:00 06/21/20 20:48 Atorvastatin Calcium 10 Mg Tablet PO 10 mg BEDTIME [facility] Administration Docusate Sodium 100 mg 06/20/20 06:39 Docusate Sodium 100 Mg Capsule PO DAILY PRN Constipation Duloxetine HCl 60 mg 06/20/20 09:00 06/22/20 09:00 Duloxetine Hcl 60 Mg Capsule.Dr PO Not Given DAILY [facility] Enoxaparin Sodium 40 mg 06/20/20 07:00 06/22/20 06:26 Enoxaparin Sodium 40 Mg/0.4 Ml Syringe SUBCUT 40 mg Q24H [facility] Administration Sodium Chloride 1,000 mls @ 100 mls/hr 06/20/20 06:39 06/22/20 09:04 Ns IVCONT 100 mls/hr .Q10H [facility] Administration Insulin Glargine 40 unit 06/20/20 21:00 06/21/20 20:49 Insulin Glargine,Hum.Rec.Anlog 100 Unit/Ml 10 Ml Vial SUBCUT Not Given BEDTIME [facility] Insulin Human Lispro 0 unit 06/20/20 07:30 06/22/20 12:00 Insulin Lispro 100 Unit/Ml 3 Ml Vial SUBCUT 6 unit QIDACHS [facility] Administration Protocol Losartan Potassium 50 mg 06/20/20 09:00 06/22/20 09:00 Losartan Potassium 50 Mg Tablet PO Not Given DAILY [facility] Protocol Metoprolol Succinate 50 mg 06/20/20 09:00 06/22/20 09:01 Metoprolol Succinate Er 50 Mg Tab.Er.24h PO Not Given DAILY [facility] Protocol Omeprazole 20 mg 06/20/20 07:30 06/22/20 05:48 Omeprazole 20 Mg Capsule.Dr PO 20 mg DAILY@0630 [facility] Administration Ondansetron HCl 4 mg 06/20/20 06:39 06/22/20 13:10 Ondansetron Hcl 4 Mg/2 Ml Vial IVPUSH 4 mg Q8H PRN Administration Nausea and Vomiting Pharmacy Consult 1 each 06/20/20 03:31 Consult Rx Perform Med Rec MISCELLANE ONCE PRN Consult order Risperidone 0.25 mg 06/22/20 21:00 Risperidone 0.25 Mg Tablet PO BEDTIME [facility] Sodium Chloride 3 ml 06/20/20 08:00 06/22/20 09:02 0.9 % Sodium Chloride Flush 3 Ml Syringe IVFLUSH 3 ml QSHIFT [facility] Administration Tramadol HCl 50 mg 06/20/20 10:32 06/21/20 23:01 Tramadol Hcl 50 Mg Tablet PO 50 mg Q8H PRN Administration Pain, Moderate (Pain Scale 4-6 Trazodone HCl 50 mg 06/20/20 06:43 06/21/20 20:49 Trazodone Hcl 50 Mg Tablet PO 50 mg BEDTIME PRN Administration insomnia Labs CBC & Chem 7: 06/22/20 05:54 06/22/20 05:54 Assessment and Plan (1) Rhabdomyolysis: Status: Acute (2) FELIX (acute kidney injury): Status: Acute (3) Macrocytic anemia: Status: Acute (4) Multiple falls: Status: Acute (5) Type 2 diabetes mellitus: Status: Inactive (6) Hypertension: Status: Acute (7) Hypothyroidism: Status: Acute (8) Syncope and collapse: Status: Acute (9) Acute hyponatremia: Status: Acute Assessment and Plan: This is a 65-year-old female with past medical history as mentioned above who presents to the hospital with complaints of frequent falls. Found to have rhabdomyolysis, FELIX. admitted for further management. FELIX secondary to rhabdomyolysis Resolved Decrease IV fluids Hold furosemide Monitor intake and output Monitor BMP Nausea and vomiting Likely secondary to medication of metformin, to hold To give Zofran and Reglan as needed CXR clear for any infiltrates To check COVID test rhabdomyolysis Secondary to fall and muscle breakdown Continue the IV fluids CPK down to 1400 continue to monitor on daily basis Microcytic anemia Patient reports having anemia before but she cannot remember the exact numbers, no baseline for comparison Hemoglobin of stable between 8-9 has normal MCV, denies melena or bright red blood per rectum Low iron level and saturation Normal ferritin level, B12, folic acid No bleeding identified follow CBC Syncope and collapse Multiple falls CT head negative for any acute findings likely multifactorial, diabetic neuropathy, postural hypotension, physical deconditioning Neurology input appreciated PT evaluation Hyperglycemia secondary to diabetes mellitus hold metformin Continue low-dose sliding scale insulin diabetic diet hypertension continue amlodipine, losartan, hypothyroidism continue levothyroxine DVT prophylaxis Lovenox
[2020-06-22] MEDS: Metoclopramide HCl 10 MG/2 ML VIAL IVPUSH (16:39)
[2020-06-22 16:53] LABS: COVID-19 Test Negative (Negative); IDNOW Serial# 9DD0AD1C
[2020-06-22 17:14] LABS: Glucose, Whole Blood 244 mg/dL (60-115)
[2020-06-22] MEDS: traMADoL HCL 50 MG TABLET PO (18:22)
--- NOTE | 2020-06-22 19:16 | PC.NURSE ---
Patient vomited all day with no relief from zofran or reglan. MD aware. No BM for 3 days. Remains NPO. Vitals stable. will continue to monitor.
[2020-06-22] MEDS: risperiDONE 0.25 MG TABLET PO (20:32)
[2020-06-22] MEDS: traZODone HCL 50 MG TABLET PO (20:32)
[2020-06-22] MEDS: Atorvastatin Calcium 10 MG TABLET PO (20:32)
[2020-06-22 21:02] LABS: Glucose, Whole Blood 223 mg/dL (60-115)
[2020-06-22] MEDS: Acetaminophen 325 MG TABLET 650 MG PO (22:38)
[2020-06-23] VITALS (9 sets, daily range): BP systolic 168–190; BP diastolic 70–84; PULSE 80–123; RESP 18–25; TEMP 36.4–39.1; O2SAT 90–96
--- NOTE | 2020-06-23 | XR_ITS ---
EXAMINATION: XR CHEST CLINICAL INFORMATION: Pneumonia COMPARISON: 06/22/2020 TECHNIQUE: Frontal view of the chest was obtained. FINDINGS: Lungs are symmetrically expanded and have a clear appearance. No consolidation or pleural effusion. Cardiac silhouette is normal in size. Pulmonary vessels are normal in caliber. No pneumoperitoneum. Moderate osteoarthritis of the right glenohumeral joint with narrowed acromiohumeral distance, suggestive of chronic rotator cuff tear at the right shoulder. XR/XR chest 1V IMPRESSION: No radiographic evidence of pneumonia. No acute findings compared to 06/22/2020.
[2020-06-23] MEDS: Morphine Sulfate 2 MG/ML CARTRIDGE 1 MG IVPUSH (01:05)
[2020-06-23] MEDS: ondansetron HCL 4 MG/2 ML VIAL IVPUSH (01:38)
--- NOTE | 2020-06-23 01:48 | PC.NURSE ---
Addendum entered by Nehal Torres RN 06/23/20 05:54: Pt becoming increasingly restless throughout the morning. Pt alert to person, vague to time and situation. Confused at times. Hr sinus 120s-130s on tele. Pt stating she has the urge to void. Multiple incontinent episodes. Bladder scanned for 50 mls. Medicated with prn ultram for back pain. MD notified of hr and mental status, to pass on to day team. Hygiene and mouth care provided. Pt repositioned. High fall risk measures in place. Original Note: Pt c/o back pain unrelieved by prn tylenol or ultram. Pt restless with elevated bp and hr 110s on tele. Dr Cantu notified, 1 mg IV morphine administered with good effect. New IV placed and fluids restarted due to loss of IV access. Pt c/o nausea, zofran administered. New dsg applied to diabetic foot ulcers. Pt repositioned.
[2020-06-23] MEDS: traMADoL HCL 50 MG TABLET PO ×3 (03:39→23:45)
[2020-06-23] MEDS: Omeprazole 20 MG CAPSULE.DR PO (05:29)
[2020-06-23] MEDS: Acetaminophen 325 MG TABLET 650 MG PO ×2 (06:23→13:48)
[2020-06-23 07:37] LABS: Glucose, Whole Blood 293 mg/dL (60-115)
[2020-06-23 07:38] LABS: Hematocrit 28.8 % (37-47); Hemoglobin 9.3 g/dl (12.0-16.0); Mean Corpuscular HGB Conc 32.3 g/dl (31.0-35.0); Mean Corpuscular Hemoglobin 27.8 pg (27.0-33.0); Mean Platelet Volume 9.9 fL (9.4-12.3); Platelet Count 545 X10*3/uL (160-400); Red Blood Count 3.35 X10*6/uL (4.20-5.50); Red Cell Distribution Width 12.5 % (11.0-16.0)
[2020-06-23] MEDS: Piperacillin Sodium/Tazobactam 3.375 GM in 0.9 % Sodium Chloride 50 ML IV ×3 (07:57→22:20)
[2020-06-23] MEDS: 0.9 % Sodium Chloride Flush 3 ML SYRINGE IVFLUSH ×3 (08:01→22:21)
[2020-06-23] MEDS: Enoxaparin Sodium 40 MG/0.4 ML SYRINGE SUBCUT (08:01)
[2020-06-23] MEDS: Insulin Lispro 100 UNIT/ML 3 ML VIAL SUBCUT ×4 (08:02→22:21)
[2020-06-23] MEDS: 0.9 % Sodium Chloride 1,000 ML 100 ML IVCONT ×2 (08:03→13:50)
[2020-06-23 08:11] LABS: Albumin Level 3.4 g/dL (3.5-5.0); Alkaline Phosphatase 93 U/L (39-117); Bilirubin Direct 0.4 mg/dL (0.0-0.5); Bilirubin Total 0.7 mg/dL (0.0-1.0); Blood Urea Nitrogen 10 mg/dL (9-16); Calcium 8.7 mg/dL (8.4-10.2); Creatinine Clr Calc Pharmacy 73.5; Estimated Glomerular Filt Rate > 60; Glucose Random 302 mg/dL (60-115); Total Protein 6.9 g/dL (6.5-8.0)
[2020-06-23 08:13] LABS: White Blood Count 34.5 X10*3/uL (4.8-10.8)
[2020-06-23 08:28] LABS: Appearance Urine CLEAR; Color Urine YELLOW; Glucose Urine UA 500 MG/DL (NEG); Leukocyte Esterase Urine NEG (NEG); Nitrite Urine NEG (NEG); PH 5.5 (5.0-8.0); Specific Gravity - Urine >= 1.030 (1.005-1.025); Urine Blood 2+ (NEG); Urine Ketones >=80 MG/DL (NEG); Urine Protein 2+ MG/DL (NEG-TRACE)
[2020-06-23 08:38] LABS: Bacteria Urine 3+ /LPF; Squamous Epithelial Cell Urine 1+ /LPF; Urine Talc Crystals TRACE /LPF
[2020-06-23 08:40] LABS: Alanine Aminotransferase 43 U/L (0-31); Anion Gap 24 (12-20); Aspartate Amino Transferase 35 U/L (5-31); Carbon Dioxide 18 mmol/L (22-29); Chloride 98 mmol/L (96-108); Potassium 3.6 mmol/l (3.3-5.1); Sodium 136 mmol/L (135-145)
[2020-06-23 08:46] LABS: Lactic Acid 2.6 mmol/L (0.5-2.0)
[2020-06-23 09:45] LABS: Reflex Lactate? Lactic Acid Added
[2020-06-23 11:29] LABS: Glucose, Whole Blood 241 mg/dL (60-115)
[2020-06-23 12:10] LABS: ~Lactic Acid-LAB USE ONLY 2.5 mmol/L (0.5-2.0)
[2020-06-23 12:44] LABS: Reflex Lactate? 2 Y
[2020-06-23] MEDS: diphenhydrAMINE HCL 50 MG/ML VIAL 25 MG IVPUSH (13:49)
[2020-06-23 14:27] LABS: ~Lactic Acid-LAB USE ONLY 2.9 mmol/L (0.5-2.0)
--- NOTE | 2020-06-23 14:45 | P.PNIM_ITS ---
Subjective Subjective Date of Service: 06/23/20 Interval History: the patient was seen and evaluated this morning Laying in bed, feels better today nausea and vomiting resolved, spiked fever this morning Denies any fever, chills or shortness of breath No reported other overnight events Systemic review: No fever, chills or weakness No chest pain, palpitation mild SOB and cough No abdominal pain, nausea or vomiting No urinary symptoms No any rash or wounds Physical Exam Vital Signs: Vital Signs: Last Vital Signs Temp 100.8 F H 06/23/20 12:00 Pulse 123 H 06/23/20 12:00 Resp 25 H 06/23/20 12:00 BP 190/83 H 06/23/20 12:00 Pulse Ox 93 06/23/20 12:00 Body Mass Index 30.6 Constitutional : Alert, oriented, looks comfortable, in mild distress Neck : Normal inspection, Supple Cardiovascular : RRR, S1 S2, no lower extremity edema, tachycardia Respiratory : fair bilateral air entry, no crackles, wheezes or rhonchi Gastrointestinal: soft, lax, Normal bowel sounds, Non tender Skin : Warm/Dry, No rash Neurological : Alert & oriented x3, No focal deficit Objective Data Current Medications Generic Name Dose Route Start Last Admin Trade Name Freq PRN Reason Stop Dose Admin Acetaminophen 650 mg 06/20/20 06:39 06/23/20 13:48 Acetaminophen 325 Mg Tablet PO 650 mg Q6H PRN Administration Pain, Mild (Pain Scale 1-3) Amlodipine Besylate 10 mg 06/20/20 09:00 06/23/20 08:05 Amlodipine Besylate 10 Mg Tablet PO Not Given DAILY [facility] Protocol Atorvastatin Calcium 10 mg 06/20/20 21:00 06/22/20 20:32 Atorvastatin Calcium 10 Mg Tablet PO 10 mg BEDTIME [facility] Administration Diphenhydramine HCl 25 mg 06/23/20 07:37 06/23/20 13:49 Diphenhydramine Hcl 50 Mg/Ml Vial IVPUSH 25 mg Q6H PRN Administration Allergic Reaction Docusate Sodium 100 mg 06/20/20 06:39 Docusate Sodium 100 Mg Capsule PO DAILY PRN Constipation Duloxetine HCl 60 mg 06/20/20 09:00 06/23/20 08:05 Duloxetine Hcl 60 Mg Capsule.Dr PO Not Given DAILY [facility] Enoxaparin Sodium 40 mg 06/20/20 07:00 06/23/20 08:01 Enoxaparin Sodium 40 Mg/0.4 Ml Syringe SUBCUT 40 mg Q24H [facility] Administration Piperacillin Sod/Tazobactam 50 mls @ 100 mls/hr 06/23/20 08:00 06/23/20 14:28 Sod 3.375 gm/ Sodium Chloride IV Infused Q6H [facility] Infusion Sodium Chloride 1,000 mls @ 100 mls/hr 06/23/20 07:45 06/23/20 13:50 Ns IVCONT 100 mls/hr .Q10H [facility] Administration Insulin Glargine 40 unit 06/20/20 21:00 06/22/20 21:58 Insulin Glargine,Hum.Rec.Anlog 100 Unit/Ml 10 Ml Vial SUBCUT Not Given BEDTIME [facility] Insulin Human Lispro 0 unit 06/20/20 07:30 06/23/20 12:44 Insulin Lispro 100 Unit/Ml 3 Ml Vial SUBCUT 4 unit QIDACHS [facility] Administration Protocol Losartan Potassium 50 mg 06/20/20 09:00 06/23/20 08:06 Losartan Potassium 50 Mg Tablet PO Not Given DAILY [facility] Protocol Metoprolol Succinate 50 mg 06/20/20 09:00 06/23/20 08:05 Metoprolol Succinate Er 50 Mg Tab.Er.24h PO Not Given DAILY [facility] Protocol Omeprazole 20 mg 06/20/20 07:30 06/23/20 05:29 Omeprazole 20 Mg Capsule.Dr PO 20 mg DAILY@0630 [facility] Administration Ondansetron HCl 4 mg 06/20/20 06:39 06/23/20 01:38 Ondansetron Hcl 4 Mg/2 Ml Vial IVPUSH 4 mg Q8H PRN Administration Nausea and Vomiting Pharmacy Consult 1 each 06/20/20 03:31 Consult Rx Perform Med Rec MISCELLANE ONCE PRN Consult order Risperidone 0.25 mg 06/22/20 21:00 06/22/20 20:32 Risperidone 0.25 Mg Tablet PO 0.25 mg BEDTIME [facility] Administration Sodium Chloride 3 ml 06/20/20 08:00 06/23/20 08:01 0.9 % Sodium Chloride Flush 3 Ml Syringe IVFLUSH 3 ml QSHIFT [facility] Administration Tramadol HCl 50 mg 06/20/20 10:32 06/23/20 13:49 Tramadol Hcl 50 Mg Tablet PO 50 mg Q8H PRN Administration Pain, Moderate (Pain Scale 4-6 Trazodone HCl 50 mg 06/20/20 06:43 06/22/20 20:32 Trazodone Hcl 50 Mg Tablet PO 50 mg BEDTIME PRN Administration insomnia Labs CBC & Chem 7: 06/23/20 06:03 06/23/20 06:02 Assessment and Plan (1) Rhabdomyolysis: Status: Acute (2) FELIX (acute kidney injury): Status: Acute (3) Macrocytic anemia: Status: Acute (4) Multiple falls: Status: Acute (5) Type 2 diabetes mellitus: Status: Inactive (6) Hypertension: Status: Acute (7) Hypothyroidism: Status: Acute (8) Syncope and collapse: Status: Acute (9) Acute hyponatremia: Status: Acute Assessment and Plan: This is a 65-year-old female with past medical history as mentioned above who presents to the hospital with complaints of frequent falls. Found to have rhabdomyolysis, FELIX. admitted for further management. sepsis Sepsis focused exam done Patient has fever, elevated WBCs Source of infection could be lungs or urine Cannot rule out viral illness To check respiratory panel Started on Zosyn and doxycycline To get ID evaluation Lactic acidosis Lactic of 2.6 Secondary to infection to give IV fluid and monitor lactic acid FELIX secondary to rhabdomyolysis Resolved Decrease IV fluids Hold furosemide Monitor intake and output Monitor BMP Nausea and vomiting resolved Use Zofran as needed Microcytic anemia Patient reports having anemia before but she cannot remember the exact numbers, no baseline for comparison Hemoglobin of stable between 8-9 has normal MCV, denies melena or bright red blood per rectum Low iron level and saturation Normal ferritin level, B12, folic acid No bleeding identified follow CBC Syncope and collapse Multiple falls CT head negative for any acute findings likely multifactorial, diabetic neuropathy, postural hypotension, physical deconditioning Neurology input appreciated PT evaluation Hyperglycemia secondary to diabetes mellitus hold metformin Continue low-dose sliding scale insulin diabetic diet hypertension continue amlodipine, losartan, hypothyroidism continue levothyroxine DVT prophylaxis Lovenox
[2020-06-23] MEDS: 0.9 % Sodium Chloride 1,000 ML 999 ML IVCONT (15:50)
[2020-06-23] MEDS: Doxycycline Hyclate 100 MG in 0.9 % Sodium Chloride 250 ML 166.67 MG IV (15:50)
[2020-06-23 16:59] LABS: Glucose, Whole Blood 267 mg/dL (60-115)
--- NOTE | 2020-06-23 18:50 | PC.NURSE ---
Patient more confused today. Pt had Tmax 101.9. PRN tylenol given. Lactic positive at 2.9. 1 L bolus NS given. Zosyn and doxycycline started. UA sent. BC sent. Pt hypertensive. Refused all PO meds today because she was extremely nauseous in the morning. Medical records requested from [facility]. will continue to monitor.
[2020-06-23 21:05] LABS: Glucose, Whole Blood 195 mg/dL (60-115)
[2020-06-23] MEDS: Aspirin Enteric Coated 81 MG TABLET.DR PO (22:20)
[2020-06-23] MEDS: risperiDONE 0.25 MG TABLET PO (22:20)
[2020-06-23] MEDS: Atorvastatin Calcium 10 MG TABLET PO (22:20)
[2020-06-23] MEDS: traZODone HCL 50 MG TABLET PO (23:45)
[2020-06-24] VITALS (17 sets, daily range): BP systolic 124–196; BP diastolic 61–129; PULSE 100–190; RESP 19–26; TEMP 35.8–36.4; O2SAT 92–95
--- NOTE | 2020-06-24 | XR_ITS ---
EXAMINATION: XR FOOT, LEFT CLINICAL INFORMATION: Foot infection COMPARISON: None TECHNIQUE: AP, lateral, and oblique views of the left foot. FINDINGS: There is erosion of the medial aspect of the first metatarsal head consistent with osteomyelitis. There is overlying soft tissue lucency, presumably an ulcer. There is high-grade joint space narrowing of the first metatarsophalangeal joint. There is severe degenerative arthrosis of the second metatarsophalangeal joint. Medial midfoot degenerative arthrosis as well. XR/XR foot LT min 3V IMPRESSION: There is erosion of the medial aspect of the first metatarsal head consistent with osteomyelitis. There is overlying soft tissue lucency consistent with an ulcer.
--- NOTE | 2020-06-24 | ECG_ITS ---
Test Reason : arrythmia Blood Pressure : / mmHG Vent. Rate : 126 BPM Atrial Rate : 126 BPM P-R Int : 132 ms QRS Dur : 084 ms QT Int : 324 ms P-R-T Axes : 065 026 072 degrees QTc Int : 469 ms Sinus tachycardia with Premature supraventricular complexes Nonspecific ST and T wave abnormality Abnormal ECG When compared to the previous EKG of Sinus tachycardia now present. PACs present. Referred By: Georgie Barnes Electronically Signed By:Sumit Mcnair
[2020-06-24] MEDS: LORazepam 2 MG/ML VIAL 0.5 MG IVPUSH (01:15)
[2020-06-24] MEDS: Metoprolol Tartrate 5 MG/5 ML VIAL IVPUSH ×2 (01:15→14:43)
[2020-06-24] MEDS: Piperacillin Sodium/Tazobactam 3.375 GM in 0.9 % Sodium Chloride 50 ML IV ×4 (01:16→22:17)
[2020-06-24] MEDS: dilTIAZem HCL 50 MG/10 ML VIAL IVPUSH (01:53)
[2020-06-24] MEDS: Doxycycline Hyclate 100 MG in 0.9 % Sodium Chloride 250 ML 166.67 MG IV (01:54)
--- NOTE | 2020-06-24 02:33 | P.EN_ITS ---
Event Note Date of Service: 06/24/20 Event Note: Patient noted to be on afib with RVR on 12 lead EKG. At present pa tient has not responded to IV push doses of Lopressor or cardizem. BP currently 175/93 mmHg. Will start cardizem drip elieser per protocol, 2d echo, TSH and cardiology consult.
[2020-06-24] MEDS: dilTIAZem HCL 125 MG in 0.9 % Sodium Chloride 100 ML 10 MG IVCONT ×2 (02:59→09:33)
--- NOTE | 2020-06-24 04:58 | PM.EVENT ---
Event Note Date of Service: 06/24/20 Event Note: Patient examined and evaluated at the bedside, HR 140-180 bpm not well controlled on Cardizem drip. At this point patient will be started on Amiodarone drip for better HR control. Patient reports body aches icluding hip, legs and back but denies any chest pain at present.
[2020-06-24] MEDS: Amiodarone/Dextrose 150 MG/100 ML PLAST..BAG 600 MG IV (05:00)
[2020-06-24] MEDS: Amiodarone HCL 900 MG in 0.9 % Sodium Chloride 500 ML 34.53 MG IVCONT (05:10)
[2020-06-24] MEDS: Digoxin 0.5 MG/2 ML AMPUL 0.25 MG IVPUSH (05:11)
[2020-06-24 06:17] LABS: Hemoglobin 8.8 g/dl (12.0-16.0); Mean Corpuscular HGB Conc 32.6 g/dl (31.0-35.0); Mean Corpuscular Hemoglobin 28.2 pg (27.0-33.0); Mean Corpuscular Volume 86.5 fL (80-98); Mean Platelet Volume 10.4 fL (9.4-12.3); Platelet Count 376 X10*3/uL (160-400); Red Blood Count 3.12 X10*6/uL (4.20-5.50); Red Cell Distribution Width 12.8 % (11.0-16.0)
[2020-06-24 06:37] LABS: White Blood Count 31.2 X10*3/uL (4.8-10.8)
[2020-06-24 06:52] LABS: Alanine Aminotransferase 34 U/L (0-31); Albumin Level 2.6 g/dL (3.5-5.0); Alkaline Phosphatase 104 U/L (39-117); Anion Gap 19 (12-20); Aspartate Amino Transferase 31 U/L (5-31); Bilirubin Direct 0.3 mg/dL (0.0-0.5); Bilirubin Total 0.4 mg/dL (0.0-1.0); Blood Urea Nitrogen 13 mg/dL (9-16); Calcium 7.9 mg/dL (8.4-10.2); Carbon Dioxide 16 mmol/L (22-29); Chloride 104 mmol/L (96-108); Creatinine Clr Calc Pharmacy 72.6; Estimated Glomerular Filt Rate > 60; Glucose Random 307 mg/dL (60-115); Potassium 3.1 mmol/l (3.3-5.1); Sodium 136 mmol/L (135-145); Total Protein 5.5 g/dL (6.5-8.0)
[2020-06-24 07:02] LABS: Thyroid Stimulating Hormone 1.45 uIU/mL (0.32-4.0)
--- NOTE | 2020-06-24 07:13 | PC.NURSE ---
Pt HR 115-120's at beginning of shift. Pt restless, thrashing back and forth in the bed. Able to respond to questions but not appropriately. Oriented to self only. Pt medicated with PRN PO Tramadol and Trazadone around 23:45 with minimal effect. Around 01:00am pt HR noted to be sustaining 180-200's. MD notified and order for 5mg IV lopressor ordered and administered with minimal effect. HR sustained 170's. Pt given 5mg IV cardizem around 0200am. EKG obtained showing afib RVR. Cardizem Drip started around 0300am. Pt still restless, pulling at IV's and throwing legs over side rails. Telesitter in place. After HR sustaining 150-180's, MD at bedside to evaluate. Cardizem drip D/C'd. Order for 0.25mg IV Digoxin and Amio loading dose. Pt started on Amio drip running at 1mg/min at approx 05:10am for next six hours. Pt heart rate sustaining 150-160's. Cardio consult ordered. aware. Will continue to monitor and report to oncoming RN.
[2020-06-24 07:45] LABS: Glucose, Whole Blood 300 mg/dL (60-115)
[2020-06-24] MEDS: dilTIAZem HCL 50 MG/10 ML VIAL 10 MG IVPUSH (09:05)
[2020-06-24] MEDS: 0.9 % Sodium Chloride Flush 3 ML SYRINGE IVFLUSH ×3 (09:07→21:14)
[2020-06-24] MEDS: Insulin Lispro 100 UNIT/ML 3 ML VIAL SUBCUT ×4 (09:08→21:13)
[2020-06-24] MEDS: Metoprolol Succinate ER 50 MG TAB.ER.24H PO (09:08)
[2020-06-24] MEDS: amLODIPine Besylate 10 MG TABLET PO (09:09)
[2020-06-24] MEDS: DULoxetine HCl 60 MG CAPSULE.DR PO (09:09)
[2020-06-24] MEDS: Losartan Potassium 50 MG TABLET PO (09:09)
[2020-06-24] MEDS: Enoxaparin Sodium 100 MG/ML SYRINGE 80 MG SUBCUT ×2 (09:23→21:12)
--- NOTE | 2020-06-24 12:20 | ECG_ITS ---
Test Reason : TACHY Blood Pressure : / mmHG Vent. Rate : 160 BPM Atrial Rate : 267 BPM P-R Int : 000 ms QRS Dur : 082 ms QT Int : 336 ms P-R-T Axes : 000 033 204 degrees QTc Int : 548 ms Atrial fibrillation with rapid ventricular response with premature ventricular or aberrantly conducted complexes Nonspecific ST and T wave abnormality Abnormal ECG When compared to the previous EKG of Afib present now Referred By: Georgie Barnes Electronically Signed By:Sumit Mcnair
--- NOTE | 2020-06-24 12:32 | P.CONCA_ITS ---
History of Present Illness History of Present Illness Date of Service: 06/24/20 Requesting physician: Amilcar Quiñonez Consult reason: atrial fibrillation Chief complaint: HYPERNATREMIA, RHABDOMYOLYSIS, FREQUENT FALLS Narrative: 65-year-old female who is presenting with multiple falls. She was found to have rhabdomyolysis due to fall and inability to get up. We are consulted primarily for atrial fibrillation with rapid ventricular response. It appears she has significant leukocytosis and concern for infection. At the same time she has been found to have AFib with RVR. She was started on Cardizem drip overnight but later changed to amiodarone for some reason. This morning she are amiodarone was stopped by the medicine team and she was put on Cardizem. On discussion with her she is denying any palpitations. She has no chest pain or shortness of breath. 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 Due to this he has balance issues and she falls frequently. She also has peripheral neuropathy. Review of Systems Review of Systems: No chest pain, shortness breath or palpitations. Yes all other systems are reviewed and are negative PMFSH Past Medical History Medical History (Updated 06/24/20 @ 14:46 by Sumit Mcnair MD) Carcinoid tumor Diabetic foot ulcers Hypertension Hypothyroidism Type 2 diabetes mellitus Social History Social History Household Members: None Housing: Apartment Do you presently have visiting nurse or other home services: Yes Smoking Status: Never smoker Second Hand Smoke Exposure: No Use of substances other than those prescribed or required for medical reasons: No Currently Displaying Signs/Symptoms of Drug Intoxication Withdrawal: No Have you been hit, kicked, punched, or otherwise hurt by someone within the past year? If so, by whom?: No Do you feel safe in your current relationship?: No Current Relationship Is there a partner from a previous relationship who is making you feel unsafe now?: No Are you made to feel afraid or neglected: No Advance Directives: No Advance Directives Information Provided: Yes Do you have thoughts of harming others: None Do you have a plan to hurt others: No Plan Recently lost weight without trying: No service: No Current occupational status: retired Meds Allergies Allergy/AdvReac Type Severity Reaction Status Date / Time chlorthalidone Allergy Unknown ACUTE Verified 06/20/20 11:43 [CHLORTHALIDONE] RENAL FAILURE Iodine and Iodide Containing Allergy Unknown UNKNOWN Verified 06/20/20 11:43 Produc [IODINE AND IODIDE CONTAINING PRODUC] levofloxacin [From LEVAQUIN] AdvReac Unknown NAUSEA & Verified 06/20/20 11:43 VOMITING Penicillins [PENICILLINS] AdvReac Unknown RASH Verified 06/20/20 11:43 Sulfa (Sulfonamide AdvReac Unknown RASH Verified 06/20/20 11:43 Antibiotics) [SULFA (SULFONAMIDE ANTIBIOTICS)] TAPE,PAPER Allergy Unknown UNKNOWN Uncoded 03/28/20 18:54 Home Medications Medication Instructions Recorded Confirmed Type amlodipine 1 tab PO DAILY 06/20/20 06/20/20 History aspirin 81 mg PO BEDTIME 06/20/20 06/20/20 History cholecalciferol (vitamin D3) 800 units PO DAILY 06/20/20 06/20/20 History cyanocobalamin (vitamin B-12) 500 mcg PO DAILY 06/20/20 06/20/20 History diclofenac sodium 2 g TOPICAL BID 06/20/20 06/20/20 History doxycycline hyclate 1 tab PO BID 06/20/20 06/20/20 History duloxetine 1 cap PO QAM 06/20/20 06/20/20 History furosemide 1 tab PO DAILY 06/20/20 06/20/20 History insulin glargine [Lantus Solostar 40 unit SUBCUT BEDTIME 06/20/20 06/20/20 History U-100 Insulin] levothyroxine 1 tab PO DAILY 06/20/20 06/20/20 History losartan 1 tab PO DAILY 06/20/20 06/20/20 History melatonin 2 tab PO BEDTIME 06/20/20 06/20/20 History metformin 2 tab PO BEDTIME 06/20/20 06/20/20 History metoprolol succinate 1 tab PO DAILY 06/20/20 06/20/20 History pantoprazole 1 tab PO DAILY 06/20/20 06/20/20 History risperidone [Risperdal] 0.25 mg PO BEDTIME 06/20/20 06/20/20 History simvastatin 1 tab PO BEDTIME 06/20/20 06/20/20 History trazodone 1 - 2 tab PO BEDTIME PRN 06/20/20 06/20/20 History Physical Exam Vital Signs: Vital Signs: Last Vital Signs Temp 97.5 F 06/24/20 09:49 Pulse 160 H 06/24/20 10:29 Resp 22 H 06/24/20 09:49 BP 164/89 H 06/24/20 10:29 Pulse Ox 95 06/24/20 09:49 Body Mass Index 30.6 GENERAL APPEARANCE: Ill-appearing, sweaty. HEENT: unremarkable. HEAD: normocephalic, atraumatic. NECK/THYROID: no carotid bruit, no jugular venous distention. SKIN: no suspicious lesions, warm and dry. HEART: no murmurs, regular rate and rhythm, S1, S2 normal. LUNGS: clear to auscultation bilaterally. ABDOMEN: normal, bowel sounds present, soft, nontender, nondistended. EXTREMITIES: Both feet dressed with previous toe amputations NEUROLOGIC: nonfocal, alert and oriented. Results Labs and Meds Result diagrams: 06/24/20 05:27 06/24/20 05:27 Lab results: Laboratory Results - last 24 hr 06/23/20 06/23/20 06/23/20 13:19 16:52 21:01 WBC RBC Hgb Hct MCV MCH MCHC RDW Plt Count MPV Absolute Nucleated RBC Nucleated RBC % (auto) Sodium Potassium Chloride Carbon Dioxide Anion Gap BUN Creatinine Estim Creat Clear Calc Estimated GFR POC Glucose 267 H 195 H Random Glucose Lactic Acid Fup @ 4Hr 2.9 H* Calcium Total Bilirubin Direct Bilirubin AST ALT Alkaline Phosphatase Total Protein Albumin TSH 06/24/20 06/24/20 06/24/20 05:27 05:27 05:27 WBC 31.2 H* RBC 3.12 L Hgb 8.8 L Hct 27.0 L MCV 86.5 MCH 28.2 MCHC 32.6 RDW 12.8 Plt Count 376 D MPV 10.4 Absolute Nucleated RBC 0.000 Nucleated RBC % (auto) 0.0 Sodium 136 Potassium 3.1 L Chloride 104 Carbon Dioxide 16 L Anion Gap 19 BUN 13 Creatinine 0.83 Estim Creat Clear Calc 72.6 Estimated GFR > 60 POC Glucose Random Glucose 307 H Lactic Acid Fup @ 4Hr Calcium 7.9 L D Total Bilirubin 0.4 Direct Bilirubin 0.3 AST 31 ALT 34 H Alkaline Phosphatase 104 Total Protein 5.5 L D Albumin 2.6 L D TSH 1.45 06/24/20 07:39 WBC RBC Hgb Hct MCV MCH MCHC RDW Plt Count MPV Absolute Nucleated RBC Nucleated RBC % (auto) Sodium Potassium Chloride Carbon Dioxide Anion Gap BUN Creatinine Estim Creat Clear Calc Estimated GFR POC Glucose 300 H Random Glucose Lactic Acid Fup @ 4Hr Calcium Total Bilirubin Direct Bilirubin AST ALT Alkaline Phosphatase Total Protein Albumin TSH Assessment and Plan (1) PAF (paroxysmal atrial fibrillation): Status: Acute 65-year-old female with the frequent falls who is admitted with fall and rhabdomyolysis. She is currently septic with significant leukocytosis. She is growing g positive cocci in the blood. She is also in atrial fibrillation with rapid ventricular response right now. Agree with Cardizem drip for now. Short- term anticoagulation can be done but due to her falls I do not think she is a good candidate for anticoagulation long-term. If Cardizem does not work the next step will be to give her metoprolol. I will use digoxin and amiodarone as last resort. She received IV fluids for rhabdomyolysis. Currently not in heart failure. Thank you for allowing me to participate in the care of your patient. Please feel free to contact me if you have any questions.
[2020-06-24 13:40] LABS: Glucose, Whole Blood 297 mg/dL (60-115)
[2020-06-24 14:24] LABS: Glucose, Whole Blood 300 mg/dL (60-115)
--- NOTE | 2020-06-24 14:41 | MHC.CM.PN ---
Patient's HR still elevated in the 140's and continues on IV Cardizem gtt. PT is on hold until patient stabilizes. Discharge plan pending PT eval. CM will continue to follow patient for discharge plan.
[2020-06-24] MEDS: traMADoL HCL 50 MG TABLET PO (15:09)
--- NOTE | 2020-06-24 15:13 | P.PNIM_ITS ---
Subjective Subjective Date of Service: 06/24/20 Interval History: the patient was seen and evaluated this morning Laying in bed, feels tired and exhausted, reporting palpitation Had fevers yesterday, feeling chilly today Denies shortness of breath but feels tightness No reported other overnight events. Systemic review: Fever and chills overnight, generalized weakness No chest pain, but reporting palpitation Reporting some shortness of breath and tightness with coughing episodes No abdominal pain, nausea or vomiting No urinary symptoms No any rash or wounds Physical Exam Vital Signs: Vital Signs: Last Vital Signs Temp 97.5 F 06/24/20 09:49 Pulse 155 H 06/24/20 14:43 Resp 22 H 06/24/20 12:00 BP 140/81 H 06/24/20 14:43 Pulse Ox 93 06/24/20 12:00 Body Mass Index 30.6 Constitutional : Alert, oriented, this comfortable, in distress, sweaty Neck : Normal inspection, Supple Cardiovascular : Irregular irregular heart rhythm, no lower limb edema Respiratory : Overall decreased bilateral air entry, no crackles, wheezes or rhonchi Gastrointestinal: soft, lax, Normal bowel sounds, Non tender Skin : Warm/Dry, bilateral foot wounds with previous amputation of toes Neurological : Alert & oriented x3, No focal deficit Objective Data Current Medications Generic Name Dose Route Start Last Admin Trade Name Freq PRN Reason Stop Dose Admin Acetaminophen 650 mg 06/20/20 06:39 06/23/20 13:48 Acetaminophen 325 Mg Tablet PO 650 mg Q6H PRN Administration Pain, Mild (Pain Scale 1-3) Amlodipine Besylate 10 mg 06/20/20 09:00 06/24/20 09:09 Amlodipine Besylate 10 Mg Tablet PO 10 mg DAILY PAPO Administration Protocol Aspirin 81 mg 06/23/20 21:00 06/23/20 22:20 Aspirin Enteric Coated 81 Mg Tablet.Dr PO 81 mg BEDTIME PAPO Administration Atorvastatin Calcium 10 mg 06/20/20 21:00 06/23/20 22:20 Atorvastatin Calcium 10 Mg Tablet PO 10 mg BEDTIME PAPO Administration Diphenhydramine HCl 25 mg 06/23/20 07:37 06/23/20 13:49 Diphenhydramine Hcl 50 Mg/Ml Vial IVPUSH 25 mg Q6H PRN Administration Allergic Reaction Docusate Sodium 100 mg 06/20/20 06:39 Docusate Sodium 100 Mg Capsule PO DAILY PRN Constipation Docusate Sodium 100 mg 06/24/20 21:00 Docusate Sodium 100 Mg Capsule PO BID [facility] Duloxetine HCl 60 mg 06/20/20 09:00 06/24/20 09:09 Duloxetine Hcl 60 Mg Capsule.Dr PO 60 mg DAILY PAPO Administration Enoxaparin Sodium 80 mg 06/24/20 09:00 06/24/20 09:23 Enoxaparin Sodium 100 Mg/Ml Syringe SUBCUT 80 mg Q12H [facility]O Administration Piperacillin Sod/Tazobactam 50 mls @ 100 mls/hr 06/23/20 08:00 06/24/20 14:40 Sod 3.375 gm/ Sodium Chloride IV 100 mls/hr Q6H [facility] Administration Diltiazem HCl 125 mg/ Sodium 125 mls @ 0 mls/hr 06/24/20 08:45 06/24/20 10:25 Chloride IVCONT 15 mg/hr .Q0M PAPO 15 mls/hr Titration Protocol Per Protocol Vancomycin HCl 1,500 mg/ 280 mls @ 186.667 mls/hr 06/24/20 14:39 Sodium Chloride IV 06/24/20 16:08 NOW STA Vancomycin HCl 750 mg/ Sodium 265 mls @ 265 mls/hr 06/25/20 03:00 Chloride IV Q12H [facility] Insulin Glargine 40 unit 06/20/20 21:00 06/23/20 22:21 Insulin Glargine,Hum.Rec.Anlog 100 Unit/Ml 10 Ml Vial SUBCUT Not Given BEDTIME [facility] Insulin Human Lispro 0 unit 06/20/20 07:30 06/24/20 14:41 Insulin Lispro 100 Unit/Ml 3 Ml Vial SUBCUT 6 unit QIDACHS [facility] Administration Protocol Levothyroxine Sodium 75 mcg 06/24/20 06:00 06/24/20 06:29 Levothyroxine Sodium 75 Mcg Tablet PO Not Given DAILY@0600 [facility] Losartan Potassium 50 mg 06/20/20 09:00 06/24/20 09:09 Losartan Potassium 50 Mg Tablet PO 50 mg DAILY [facility] Administration Protocol Metoprolol Succinate 50 mg 06/20/20 09:00 06/24/20 09:08 Metoprolol Succinate Er 50 Mg Tab.Er.24h PO 50 mg DAILY [facility] Administration Protocol Omeprazole 20 mg 06/20/20 07:30 06/24/20 06:29 Omeprazole 20 Mg Capsule. PO Not Given DAILY@0630 [facility] Ondansetron HCl 4 mg 06/20/20 06:39 06/23/20 01:38 Ondansetron Hcl 4 Mg/2 Ml Vial IVPUSH 4 mg Q8H PRN Administration Nausea and Vomiting Pharmacy Consult 1 each 06/20/20 03:31 Consult Rx Perform Med Rec MISCELLANE ONCE PRN Consult order Risperidone 0.25 mg 06/22/20 21:00 06/23/20 22:20 Risperidone 0.25 Mg Tablet PO 0.25 mg BEDTIME [facility] Administration Sodium Chloride 3 ml 06/20/20 08:00 06/24/20 09:07 0.9 % Sodium Chloride Flush 3 Ml Syringe IVFLUSH 3 ml QSHIFT [facility] Administration Tramadol HCl 50 mg 06/20/20 10:32 06/24/20 15:09 Tramadol Hcl 50 Mg Tablet PO 50 mg Q8H PRN Administration Pain, Moderate (Pain Scale 4-6 Trazodone HCl 50 mg 06/20/20 06:43 06/23/20 23:45 Trazodone Hcl 50 Mg Tablet PO 50 mg BEDTIME PRN Administration insomnia Labs CBC & Chem 7: 06/24/20 05:27 06/24/20 05:27 Microbiology Microbiology Results: Microbiology 06/23/20 07:37 Blood - Venous Blood Culture - Preliminary Assessment and Plan (1) Rhabdomyolysis: Status: Acute (2) FELIX (acute kidney injury): Status: Acute (3) Macrocytic anemia: Status: Acute (4) Multiple falls: Status: Acute (5) Type 2 diabetes mellitus: Status: Inactive (6) Hypertension: Status: Acute (7) Hypothyroidism: Status: Acute (8) Syncope and collapse: Status: Acute (9) Acute hyponatremia: Status: Acute Assessment and Plan: This is a 65-year-old female with past medical history as mentioned above who presents to the hospital with complaints of frequent falls. Found to have rhabdomyolysis, FELIX. admitted for further management. Sepsis Gram-positive bacteremia Blood cultures growing Gram-positive cocci in chains To repeat blood cultures Source likely from wounds in her feet Respiratory panel negative Continue Zosyn Discontinue doxycycline and add vancomycin Pending ID evaluation New onset atrial fibrillation with RVR Likely secondary to sepsis Start full anticoagulation with Lovenox Placed on Cardizem drip, still resistant to treatment with heart rate in 140s to 150s To use beta-vince as needed as pushes Hold on digoxin and amiodarone for now pending echo Cardiology input appreciated Hypomagnesemia Magnesium of 1.4 To give replacement To check mg live in the morning Lactic acidosis Resolved Secondary to infection DC IV fluids FELIX secondary to rhabdomyolysis Resolved Hold furosemide Monitor intake and output Monitor BMP Nausea and vomiting resolved Use Zofran as needed Microcytic anemia Patient reports having anemia before but she cannot remember the exact numbers, no baseline for comparison Hemoglobin of stable between 8-9 has normal MCV, denies melena or bright red blood per rectum Low iron level and saturation Normal ferritin level, B12, folic acid No bleeding identified follow CBC Multiple falls No evidence of syncope CT head negative for any acute findings likely multifactorial, diabetic neuropathy, postural hypotension, physical deconditioning Neurology input appreciated PT evaluation Hyperglycemia secondary to diabetes mellitus hold metformin Continue low-dose sliding scale insulin diabetic diet hypertension continue amlodipine, losartan, hypothyroidism continue levothyroxine DVT prophylaxis Lovenox
[2020-06-24 15:17] LABS: Magnesium 1.4 mg/dL (1.6-2.6)
--- NOTE | 2020-06-24 16:16 | W.PM.IDCN ---
History of Present Illness Data of Consult Service Date: 06/24/20 Requesting physician: Amilcar Quiñonez Primary Care Provider: Jessie Sorensen MD HPI Reason for consult: leukemoid reaction and fever She presents to hospital with weakness and fatigue. She has no specific symptoms She has developed fever and leukocytosis left foot right foot Review of Systems Review of Systems: Yes Unobtainable due to mental status Neurologic: Reports confusion Psychiatric: Psychiatric: Reports confusion [facility] Past Medical History Medical History (Updated 06/24/20 @ 16:21 by Jael Westfall MD) Carcinoid tumor Diabetic foot ulcers Hypertension Hypothyroidism Leukemoid reaction Type 2 diabetes mellitus Social History Social History Household Members: None Housing: Apartment Do you presently have visiting nurse or other home services: Yes Smoking Status: Never smoker Second Hand Smoke Exposure: No Use of substances other than those prescribed or required for medical reasons: No Currently Displaying Signs/Symptoms of Drug Intoxication Withdrawal: No Have you been hit, kicked, punched, or otherwise hurt by someone within the past year? If so, by whom?: No Do you feel safe in your current relationship?: No Current Relationship Is there a partner from a previous relationship who is making you feel unsafe now?: No Are you made to feel afraid or neglected: No Advance Directives: No Advance Directives Information Provided: Yes Do you have thoughts of harming others: None Do you have a plan to hurt others: No Plan Recently lost weight without trying: No service: No Current occupational status: retired Meds Allergies Allergy/AdvReac Type Severity Reaction Status Date / Time chlorthalidone Allergy Unknown ACUTE Verified 06/20/20 11:43 [CHLORTHALIDONE] RENAL FAILURE Iodine and Iodide Containing Allergy Unknown UNKNOWN Verified 06/20/20 11:43 Produc [IODINE AND IODIDE CONTAINING PRODUC] levofloxacin [From LEVAQUIN] AdvReac Unknown NAUSEA & Verified 06/20/20 11:43 VOMITING Penicillins [PENICILLINS] AdvReac Unknown RASH Verified 06/20/20 11:43 Sulfa (Sulfonamide AdvReac Unknown RASH Verified 06/20/20 11:43 Antibiotics) [SULFA (SULFONAMIDE ANTIBIOTICS)] TAPE,PAPER Allergy Unknown UNKNOWN Uncoded 03/28/20 18:54 Home Medications Medication Instructions Recorded Confirmed Type amlodipine 1 tab PO DAILY 06/20/20 06/20/20 History aspirin 81 mg PO BEDTIME 06/20/20 06/20/20 History cholecalciferol (vitamin D3) 800 units PO DAILY 06/20/20 06/20/20 History cyanocobalamin (vitamin B-12) 500 mcg PO DAILY 06/20/20 06/20/20 History diclofenac sodium 2 g TOPICAL BID 06/20/20 06/20/20 History doxycycline hyclate 1 tab PO BID 06/20/20 06/20/20 History duloxetine 1 cap PO QAM 06/20/20 06/20/20 History furosemide 1 tab PO DAILY 06/20/20 06/20/20 History insulin glargine [Lantus Solostar 40 unit SUBCUT BEDTIME 06/20/20 06/20/20 History U-100 Insulin] levothyroxine 1 tab PO DAILY 06/20/20 06/20/20 History losartan 1 tab PO DAILY 06/20/20 06/20/20 History melatonin 2 tab PO BEDTIME 06/20/20 06/20/20 History metformin 2 tab PO BEDTIME 06/20/20 06/20/20 History metoprolol succinate 1 tab PO DAILY 06/20/20 06/20/20 History pantoprazole 1 tab PO DAILY 06/20/20 06/20/20 History risperidone [Risperdal] 0.25 mg PO BEDTIME 06/20/20 06/20/20 History simvastatin 1 tab PO BEDTIME 06/20/20 06/20/20 History trazodone 1 - 2 tab PO BEDTIME PRN 06/20/20 06/20/20 History Physical Exam Vital Signs: Vital Signs: Last Vital Signs Temp 97.5 F 06/24/20 15:47 Pulse 126 H 06/24/20 15:47 Resp 26 H 06/24/20 15:47 BP 140/81 H 06/24/20 15:47 Pulse Ox 95 06/24/20 15:47 Body Mass Index 30.6 Const: General: cooperative and confusion Orientation/consciousness: confusion HENMT: Head: Yes normal to inspection Mouth: oropharynx normal Resp: Effort & Inspection: normal respiratory effort Cardio: Rate: regular rate Rhythm: regular rhythm GI: Inspection: Yes normal to inspection Skin: General skin exam: no rashes or lesions noted Neuro: General: confusion Extrem: Other: bilateral old appearing ulcers feet,probe to bone on left Assessment and Plan (1) Leukemoid reaction: Problem details: The reaction and fever may be due to rhabdomyolysis Also possible abdominal infection/collection The left foot possible osteomyelitis possible Status: Acute Check left foot Xray Abdominal CT Continue Zosyn and Vancomycin for now Await blood cultures Results Labs CBC & Chem 7: 06/24/20 05:27 06/24/20 05:27 Labs: Short CBC 06/24/20 Range/Units 05:27 WBC 31.2 H* (4.8-10.8) X10*3/uL Hgb 8.8 L (12.0-16.0) g/dl Hct 27.0 L (37-47) % Plt Count 376 D (160-400) X10*3/uL BMP 06/24/20 05:27 Sodium 136 Potassium 3.1 L Chloride 104 Carbon Dioxide 16 L BUN 13 Creatinine 0.83 Calcium 7.9 L D Liver Function 06/24/20 Range/Units 05:27 Total Bilirubin 0.4 (0.0-1.0) mg/dL Direct Bilirubin 0.3 (0.0-0.5) mg/dL AST 31 (5-31) U/L ALT 34 H (0-31) U/L Alkaline Phosphatase 104 (39-117) U/L Albumin 2.6 L D (3.5-5.0) g/dL Microbiology Microbiology Results: Microbiology 06/23/20 07:37 Blood - Venous Blood Culture - Preliminary
[2020-06-24 16:21] LABS: Vancomycin Trough < 3.0 mcg/mL (10.0-20.0)
[2020-06-24] MEDS: dilTIAZem HCL 125 MG in 0.9 % Sodium Chloride 100 ML 15 MG IVCONT (17:41)
[2020-06-24 17:45] LABS: Glucose, Whole Blood 296 mg/dL (60-115)
[2020-06-24] MEDS: Magnesium Sulfate/H2O 2 GM/50 ML PIGGYBACK IV (17:52)
[2020-06-24 19:21] LABS: B Type Natriuretic Peptide 594 pg/mL (<100)
[2020-06-24 20:57] LABS: Glucose, Whole Blood 224 mg/dL (60-115)
[2020-06-24] MEDS: Atorvastatin Calcium 10 MG TABLET PO (21:13)
[2020-06-24] MEDS: Aspirin Enteric Coated 81 MG TABLET.DR PO (21:13)
[2020-06-24] MEDS: risperiDONE 0.25 MG TABLET PO (21:13)
[2020-06-24] MEDS: Docusate Sodium 100 MG CAPSULE PO (21:13)
[2020-06-24] MEDS: Insulin Glargine,Hum.rec.anlog 100 UNIT/ML 10 ML VIAL 40 UNIT SUBCUT (21:13)
[2020-06-25] VITALS (13 sets, daily range): BP systolic 91–157; BP diastolic 54–80; PULSE 72–116; RESP 18–20; TEMP 36–37; O2SAT 94–99
--- NOTE | 2020-06-25 | CT_ITS ---
EXAMINATION: CT ABDOMEN AND PELVIS WITHOUT CONTRAST CLINICAL INFORMATION: Leukocytosis. COMPARISON: None TECHNIQUE: Multidetector volumetric imaging was performed from the superior aspect of the liver through the pubic symphysis. Sagittal and coronal reformatted images were obtained on the technologist's workstation. This CT examination was performed using dose optimization techniques as appropriate, variously including the following: *Automated exposure control *Adjustment of mA and/or kV according to patient size (this includes techniques or standardized protocols for targeted exams where dose is matched to indication/reason for exam; i.e. extremities or head) *Use of iterative reconstruction technique DLP: 989 mGy-cm FINDINGS: LUNG BASES: The visualized lung bases are unremarkable. LIVER, GALLBLADDER, AND BILIARY TREE: The liver is normal in size, shape, and attenuation. No focal hepatic lesion or biliary ductal dilatation is present. Elbow has been removed. PANCREAS: The pancreas is small and atrophic. SPLEEN: Unremarkable. ADRENAL GLANDS: Unremarkable. KIDNEYS AND URETERS: The kidneys are normal in size, shape, and attenuation. No hydronephrosis, hydroureter, or calculi seen. There is mild bilateral perinephric stranding. There is right peripelvic cysts. There is a linear calcification in the midpole right kidney likely vascular. BLADDER: Unremarkable. GASTROINTESTINAL TRACT: There is diffuse sigmoid and scattered rest of colon diverticulosis without distention. There is gas visualized within the nondilated small bowel loops. No free air or free fluid seen. Appendix is not visualized. The stomach is nondistended. There is minimal right paracolic fluid collection. ABDOMINAL WALL: No significant hernia is appreciated. LYMPH NODES: Normal. VASCULAR: Unremarkable. PELVIC VISCERA: There is small amount of free fluid in the pelvis. The uterus is midline. No adnexal mass or free fluid seen. OSSEOUS STRUCTURES: There are degenerative disc changes L4-L5 disc level with lumbarization S1 vertebra anteverted with a disc S1-S2 disc level. Moderate endplate sclerosis seen at the L5-S1 disc level. Mild deformity at L1 superior endplate is noted likely old. CT/CT abdomen pelvis wo con IMPRESSION: Colonic diverticulosis without diverticulitis. There is smaller right paracolic and free fluid in the pelvis appendix is not visualized. There are no radiopaque renal calculi or hydronephrosis. There is bilateral perinephric stranding. There is no's evidence of abscess.
--- NOTE | 2020-06-25 | US_ITS ---
EXAMINATION: US VENOUS ULTRASOUND WITH DOPPLER LOWER EXTREMITY, BILATERAL CLINICAL INFORMATION: Rule out DVT COMPARISON: None TECHNIQUE: Ultrasound of the deep veins is performed from the hip to the calf with compression sonography and color and pulse Doppler assessment. Spectral analysis with color-flow imaging is performed. FINDINGS: RIGHT: There is normal venous compression and respiratory variation and augmented flow. The visualized common femoral vein, superficial femoral vein, profunda femoral vein, popliteal vein, and the trifurcation region shows no evidence of deep venous thrombosis. There is no significant popliteal fossa cyst. LEFT: There is normal venous compression and respiratory variation and augmented flow. The visualized common femoral vein, superficial femoral vein, profunda femoral vein, popliteal vein, and the trifurcation region shows no evidence of deep venous thrombosis. There is no significant popliteal fossa cyst. If the patient's symptoms persist, followup ultrasound in 5 days 7 days might be of value to exclude proximal propagation from a non-visualized calf vein. US/US venous duplex LE BI IMPRESSION: No DVT demonstrated in the bilateral lower extremities.
[2020-06-25] MEDS: traZODone HCL 50 MG TABLET PO ×2 (02:22→22:12)
[2020-06-25] MEDS: Piperacillin Sodium/Tazobactam 3.375 GM in 0.9 % Sodium Chloride 50 ML IV ×4 (02:22→20:28)
[2020-06-25] MEDS: traMADoL HCL 50 MG TABLET PO ×3 (02:26→20:29)
[2020-06-25] MEDS: dilTIAZem HCL 125 MG in 0.9 % Sodium Chloride 100 ML 15 MG IVCONT ×2 (03:26→12:32)
[2020-06-25] MEDS: vancomycin HCL 750 MG in 0.9 % Sodium Chloride 250 ML 265 MG IV ×2 (03:30→16:34)
[2020-06-25] MEDS: Levothyroxine Sodium 75 MCG TABLET PO (06:16)
[2020-06-25] MEDS: Omeprazole 20 MG CAPSULE.DR PO (06:16)
[2020-06-25 06:24] LABS: Hematocrit 25.8 % (37-47); Hemoglobin 8.4 g/dl (12.0-16.0); Mean Corpuscular HGB Conc 32.6 g/dl (31.0-35.0); Mean Platelet Volume 10.3 fL (9.4-12.3); Platelet Count 452 X10*3/uL (160-400); Red Cell Distribution Width 12.8 % (11.0-16.0); White Blood Count 27.6 X10*3/uL (4.8-10.8)
[2020-06-25 08:21] LABS: D Dimer 2178 NG/ML
[2020-06-25 09:03] LABS: Glucose, Whole Blood 279 mg/dL (60-115)
[2020-06-25] MEDS: Insulin Lispro 100 UNIT/ML 3 ML VIAL SUBCUT ×4 (09:23→22:10)
[2020-06-25] MEDS: 0.9 % Sodium Chloride Flush 3 ML SYRINGE IVFLUSH ×2 (09:24→16:41)
[2020-06-25] MEDS: Docusate Sodium 100 MG CAPSULE PO ×2 (09:26→22:12)
[2020-06-25] MEDS: amLODIPine Besylate 10 MG TABLET PO (09:26)
[2020-06-25] MEDS: DULoxetine HCl 60 MG CAPSULE.DR PO (09:29)
[2020-06-25] MEDS: Metoprolol Succinate ER 50 MG TAB.ER.24H PO (09:30)
[2020-06-25] MEDS: Losartan Potassium 50 MG TABLET PO (09:30)
[2020-06-25] MEDS: Enoxaparin Sodium 100 MG/ML SYRINGE 80 MG SUBCUT ×2 (09:34→22:11)
[2020-06-25] MEDS: Furosemide 20 MG/2 ML VIAL IVPUSH ×2 (10:43→15:16)
[2020-06-25 11:22] LABS: Glucose, Whole Blood 280 mg/dL (60-115)
--- NOTE | 2020-06-25 11:53 | MHC.CLN ---
RE: CONSULT PT WITH POOR PO INTAKE PER NSG PT IS CONFUSED DIET RX: 1800DM -APPROPRIATE NOTED ISMAEL 12 WITH DM ULCERS ON LE WILL START GLUCERNA BID TO INCREASE KCALS FOLLOWING
[2020-06-25] MEDS: polyethylene glycoL 3350 17 GM POWD.PACK PO (12:33)
--- NOTE | 2020-06-25 13:15 | P.PNCA_ITS ---
Subjective Subjective Date of Service: 06/25/20 Interval history: Feeling better. Still in Afib. rates are better controlled today. On IV Abx for bacteremia. Complaining that she is short of breath today Review of Systems Review of Systems Short of breath Yes all other systems are reviewed and are negative Physical Exam Vital Signs: Last Vital Signs Temp 96.8 F 06/25/20 11:06 Pulse 72 06/25/20 11:06 Resp 20 06/25/20 11:06 BP 143/69 H 06/25/20 11:06 Pulse Ox 96 06/25/20 11:06 Body Mass Index 30.6 GENERAL APPEARANCE: in no acute distress, ill-appearing. HEENT: unremarkable. HEAD: normocephalic, atraumatic. NECK/THYROID: no carotid bruit, JVD approximately 13 cm water. SKIN: no suspicious lesions, warm and dry. HEART: no murmurs, regular rate and rhythm, S1, S2 normal. LUNGS: clear to auscultation bilaterally. ABDOMEN: normal, bowel sounds present, soft, nontender, nondistended. EXTREMITIES: Bilateral toe amputations. Left foot in dressing. Open heel wound on the right foot. NEUROLOGIC: nonfocal, alert and oriented. PSYCH: mood/affect full range. Results Labs and Meds Result diagrams: 06/25/20 05:20 06/24/20 05:27 Lab results: Laboratory Results - last 24 hr 06/24/20 06/24/20 06/24/20 05:27 11:25 13:35 WBC RBC Hgb Hct MCV MCH MCHC RDW Plt Count MPV Absolute Nucleated RBC Nucleated RBC % (auto) D-Dimer Sodium Potassium Chloride Carbon Dioxide Anion Gap BUN Creatinine Estim Creat Clear Calc Estimated GFR POC Glucose 300 H 297 H Random Glucose Calcium Magnesium 1.4 L* Total Bilirubin Direct Bilirubin AST ALT Alkaline Phosphatase Lactate Dehydrogenase C-Reactive Protein B-Natriuretic Peptide Total Protein Albumin Vancomycin Trough 06/24/20 06/24/20 06/24/20 15:32 15:53 18:13 WBC RBC Hgb Hct MCV MCH MCHC RDW Plt Count MPV Absolute Nucleated RBC Nucleated RBC % (auto) D-Dimer Sodium Potassium Chloride Carbon Dioxide Anion Gap BUN Creatinine Estim Creat Clear Calc Estimated GFR POC Glucose 296 H Random Glucose Calcium Magnesium Total Bilirubin Direct Bilirubin AST ALT Alkaline Phosphatase Lactate Dehydrogenase C-Reactive Protein B-Natriuretic Peptide 594 H Total Protein Albumin Vancomycin Trough < 3.0 L 06/24/20 06/25/20 06/25/20 20:52 05:20 05:20 WBC 27.6 H RBC 3.00 L Hgb 8.4 L Hct 25.8 L MCV 86.0 MCH 28.0 MCHC 32.6 RDW 12.8 Plt Count 452 H MPV 10.3 Absolute Nucleated RBC 0.000 Nucleated RBC % (auto) 0.0 D-Dimer Sodium Potassium Chloride Carbon Dioxide Anion Gap BUN Creatinine Estim Creat Clear Calc Estimated GFR POC Glucose 224 H Random Glucose Calcium Magnesium 2.0 Total Bilirubin Direct Bilirubin AST ALT Alkaline Phosphatase Lactate Dehydrogenase C-Reactive Protein B-Natriuretic Peptide Total Protein Albumin Vancomycin Trough 06/25/20 06/25/20 06/25/20 05:20 05:20 09:00 WBC RBC Hgb Hct MCV MCH MCHC RDW Plt Count MPV Absolute Nucleated RBC Nucleated RBC % (auto) D-Dimer 2178 Sodium Cancelled Potassium Cancelled Chloride Cancelled Carbon Dioxide Cancelled Anion Gap Cancelled BUN Cancelled Creatinine Cancelled Estim Creat Clear Calc Cancelled Estimated GFR Cancelled POC Glucose 279 H Random Glucose Cancelled Calcium Cancelled Magnesium Total Bilirubin Cancelled Direct Bilirubin Cancelled AST Cancelled ALT Cancelled Alkaline Phosphatase Cancelled Lactate Dehydrogenase Cancelled C-Reactive Protein Cancelled B-Natriuretic Peptide Total Protein Cancelled Albumin Cancelled Vancomycin Trough 06/25/20 11:18 WBC RBC Hgb Hct MCV MCH MCHC RDW Plt Count MPV Absolute Nucleated RBC Nucleated RBC % (auto) D-Dimer Sodium Potassium Chloride Carbon Dioxide Anion Gap BUN Creatinine Estim Creat Clear Calc Estimated GFR POC Glucose 280 H Random Glucose Calcium Magnesium Total Bilirubin Direct Bilirubin AST ALT Alkaline Phosphatase Lactate Dehydrogenase C-Reactive Protein B-Natriuretic Peptide Total Protein Albumin Vancomycin Trough Progress Note: A&P Assessment and plan (1) PAF (paroxysmal atrial fibrillation): Status: Acute (2) Syncope and collapse: Status: Acute (3) Multiple falls: Status: Acute (4) Sepsis: Status: Acute Assessment and Plan: 65-year-old female with atrial fibrillation rapid ventricular response. This was in the setting of sepsis from Gram-positive cocci. She is improving with antibiotics. I think the Cardizem can be changed to oral. She is somewhat volume overloaded after the initial volume resuscitation for rhabdomyolysis. She is complaining of shortness of breath. I think we should give her IV diuretics today. I will not leave her on standing dose of diuretics and just does her based on response. Multiple falls in the past and she is not a good candidate for long-term anticoagulation. Thank you for allowing me to participate in the care of your patient. Please feel free to contact me if you have any questions. Fall Risk Details Current Medications: Current Medications Generic Name Dose Route Start Last Admin Trade Name Freq PRN Reason Stop Dose Admin Acetaminophen 650 mg 06/20/20 06:39 06/23/20 13:48 Acetaminophen 325 Mg Tablet PO 650 mg Q6H PRN Administration Pain, Mild (Pain Scale 1-3) Amlodipine Besylate 10 mg 06/20/20 09:00 06/25/20 09:26 Amlodipine Besylate 10 Mg Tablet PO 10 mg DAILY PAPO Administration Protocol Aspirin 81 mg 06/23/20 21:00 06/24/20 21:13 Aspirin Enteric Coated 81 Mg Tablet. PO 81 mg BEDTIME PAPO Administration Atorvastatin Calcium 10 mg 06/20/20 21:00 06/24/20 21:13 Atorvastatin Calcium 10 Mg Tablet PO 10 mg BEDTIME PAPO Administration Diphenhydramine HCl 25 mg 06/23/20 07:37 06/23/20 13:49 Diphenhydramine Hcl 50 Mg/Ml Vial IVPUSH 25 mg Q6H PRN Administration Allergic Reaction Docusate Sodium 100 mg 06/20/20 06:39 Docusate Sodium 100 Mg Capsule PO DAILY PRN Constipation Docusate Sodium 100 mg 06/24/20 21:00 06/25/20 09:26 Docusate Sodium 100 Mg Capsule PO 100 mg BID PAPO Administration Duloxetine HCl 60 mg 06/20/20 09:00 06/25/20 09:29 Duloxetine Hcl 60 Mg Capsule. PO 60 mg DAILY PAPO Administration Enoxaparin Sodium 80 mg 06/24/20 09:00 06/25/20 09:34 Enoxaparin Sodium 100 Mg/Ml Syringe SUBCUT 80 mg Q12H PAPO Administration Piperacillin Sod/Tazobactam 50 mls @ 100 mls/hr 06/23/20 08:00 06/25/20 10:56 Sod 3.375 gm/ Sodium Chloride IV Infused Q6H PAPO Infusion Diltiazem HCl 125 mg/ Sodium 125 mls @ 0 mls/hr 06/24/20 08:45 06/25/20 12:32 Chloride IVCONT 15 mg/hr .Q0M PAPO 15 mls/hr Administration Protocol Per Protocol Vancomycin HCl 750 mg/ Sodium 265 mls @ 265 mls/hr 06/25/20 03:00 06/25/20 04:50 Chloride IV Infused Q12H PAPO Infusion Insulin Glargine 40 unit 06/20/20 21:00 06/24/20 21:13 Insulin Glargine,Hum.Rec.Anlog 100 Unit/Ml 10 Ml Vial SUBCUT 40 unit BEDTIME PAPO Administration Insulin Human Lispro 0 unit 06/20/20 07:30 06/25/20 12:33 Insulin Lispro 100 Unit/Ml 3 Ml Vial SUBCUT 6 unit QIDACHS PAPO Administration Protocol Levothyroxine Sodium 75 mcg 06/24/20 06:00 06/25/20 06:16 Levothyroxine Sodium 75 Mcg Tablet PO 75 mcg DAILY@0600 PAPO Administration Losartan Potassium 50 mg 06/20/20 09:00 06/25/20 09:30 Losartan Potassium 50 Mg Tablet PO 50 mg DAILY PAPO Administration Protocol Metoprolol Succinate 50 mg 06/20/20 09:00 06/25/20 09:30 Metoprolol Succinate Er 50 Mg Tab.Er.24h PO 50 mg DAILY PAPO Administration Protocol Omeprazole 20 mg 06/20/20 07:30 06/25/20 06:16 Omeprazole 20 Mg Capsule.Dr PO 20 mg DAILY@0630 PAPO Administration Ondansetron HCl 4 mg 06/20/20 06:39 06/23/20 01:38 Ondansetron Hcl 4 Mg/2 Ml Vial IVPUSH 4 mg Q8H PRN Administration Nausea and Vomiting Pharmacy Consult 1 each 06/20/20 03:31 Consult Rx Perform Med Rec MISCELLANE ONCE PRN Consult order Polyethylene Glycol 17 gm 06/25/20 10:25 06/25/20 12:33 Polyethylene Glycol 3350 17 Gm Powd.Pack PO 17 gm DAILY PAPO Administration Risperidone 0.25 mg 06/22/20 21:00 06/24/20 21:13 Risperidone 0.25 Mg Tablet PO 0.25 mg BEDTIME PAPO Administration Sodium Chloride 3 ml 06/20/20 08:00 06/25/20 09:24 0.9 % Sodium Chloride Flush 3 Ml Syringe IVFLUSH 3 ml QSHIFT PAPO Administration Tramadol HCl 50 mg 06/25/20 11:39 06/25/20 12:34 Tramadol Hcl 50 Mg Tablet PO 50 mg Q6H PRN Administration Pain, Severe (Pain Scale 7-10) Trazodone HCl 50 mg 06/20/20 06:43 06/25/20 02:22 Trazodone Hcl 50 Mg Tablet PO 50 mg BEDTIME PRN Administration insomnia Time Spent With Patient Time: Total time spent is greater than 50% in coordination of care (as doc umented) at patient's floor/unit and/or counseling patient: Time with patient: less than 15 minutes
--- NOTE | 2020-06-25 13:44 | HO.PM.IMPN ---
Subjective Subjective Date of Service: 06/25/20 Interval History: the patient was seen and evaluated this morning Laying in bed, looks much better in comparison to yesterday, not septic looking anymore Denies any fever, chills but reports constipation for the last few days Blood culture growing Gram-positive cocci No reported other overnight events. Systemic review: No fever, chills but reports generalized weakness No chest pain, palpitation Mild shortness of breath and coughing No abdominal pain, nausea or vomiting No urinary symptoms No any rash or wounds Physical Exam Vital Signs: Vital Signs: Last Vital Signs Temp 96.8 F 06/25/20 11:06 Pulse 72 06/25/20 11:06 Resp 20 06/25/20 11:06 BP 143/69 H 06/25/20 11:06 Pulse Ox 96 06/25/20 11:06 Body Mass Index 30.6 Constitutional : Alert, oriented, not in distress Neck : Normal inspection, Supple Cardiovascular : Irregular irregular, S1 S2, no lower extremity edema Respiratory : Decreased bilateral air entry, no crackles, wheezes or rhonchi Gastrointestinal: soft, lax, Normal bowel sounds, Non tender Skin : Warm/Dry, No rash, right big toe amputated, left big toe base wound, swelling, no sensation with bad other. Neurological : Alert & oriented x3, No focal deficit Objective Data Current Medications Generic Name Dose Route Start Last Admin Trade Name Freq PRN Reason Stop Dose Admin Acetaminophen 650 mg 06/20/20 06:39 06/23/20 13:48 Acetaminophen 325 Mg Tablet PO 650 mg Q6H PRN Administration Pain, Mild (Pain Scale 1-3) Amlodipine Besylate 10 mg 06/20/20 09:00 06/25/20 09:26 Amlodipine Besylate 10 Mg Tablet PO 10 mg DAILY PAPO Administration Protocol Aspirin 81 mg 06/23/20 21:00 06/24/20 21:13 Aspirin Enteric Coated 81 Mg Tablet.Dr PO 81 mg BEDTIME PAPO Administration Atorvastatin Calcium 10 mg 06/20/20 21:00 06/24/20 21:13 Atorvastatin Calcium 10 Mg Tablet PO 10 mg BEDTIME PAPO Administration Diphenhydramine HCl 25 mg 06/23/20 07:37 06/23/20 13:49 Diphenhydramine Hcl 50 Mg/Ml Vial IVPUSH 25 mg Q6H PRN Administration Allergic Reaction Docusate Sodium 100 mg 06/20/20 06:39 Docusate Sodium 100 Mg Capsule PO DAILY PRN Constipation Docusate Sodium 100 mg 06/24/20 21:00 06/25/20 09:26 Docusate Sodium 100 Mg Capsule PO 100 mg BID PAPO Administration Duloxetine HCl 60 mg 06/20/20 09:00 06/25/20 09:29 Duloxetine Hcl 60 Mg Capsule.Dr PO 60 mg DAILY PAPO Administration Enoxaparin Sodium 80 mg 06/24/20 09:00 06/25/20 09:34 Enoxaparin Sodium 100 Mg/Ml Syringe SUBCUT 80 mg Q12H PAPO Administration Piperacillin Sod/Tazobactam 50 mls @ 100 mls/hr 06/23/20 08:00 06/25/20 10:56 Sod 3.375 gm/ Sodium Chloride IV Infused Q6H PAPO Infusion Diltiazem HCl 125 mg/ Sodium 125 mls @ 0 mls/hr 06/24/20 08:45 06/25/20 12:32 Chloride IVCONT 15 mg/hr .Q0M PAPO 15 mls/hr Administration Protocol Per Protocol Vancomycin HCl 750 mg/ Sodium 265 mls @ 265 mls/hr 06/25/20 03:00 06/25/20 04:50 Chloride IV Infused Q12H PAPO Infusion Insulin Glargine 40 unit 06/20/20 21:00 06/24/20 21:13 Insulin Glargine,Hum.Rec.Anlog 100 Unit/Ml 10 Ml Vial SUBCUT 40 unit BEDTIME PAPO Administration Insulin Human Lispro 0 unit 06/20/20 07:30 06/25/20 12:33 Insulin Lispro 100 Unit/Ml 3 Ml Vial SUBCUT 6 unit QIDACHS PAPO Administration Protocol Levothyroxine Sodium 75 mcg 06/24/20 06:00 06/25/20 06:16 Levothyroxine Sodium 75 Mcg Tablet PO 75 mcg DAILY@0600 PAPO Administration Losartan Potassium 50 mg 06/20/20 09:00 06/25/20 09:30 Losartan Potassium 50 Mg Tablet PO 50 mg DAILY PAPO Administration Protocol Metoprolol Succinate 50 mg 06/20/20 09:00 06/25/20 09:30 Metoprolol Succinate Er 50 Mg Tab.Er.24h PO 50 mg DAILY PAPO Administration Protocol Omeprazole 20 mg 06/20/20 07:30 06/25/20 06:16 Omeprazole 20 Mg Capsule. PO 20 mg DAILY@0630 PAPO Administration Ondansetron HCl 4 mg 06/20/20 06:39 06/23/20 01:38 Ondansetron Hcl 4 Mg/2 Ml Vial IVPUSH 4 mg Q8H PRN Administration Nausea and Vomiting Pharmacy Consult 1 each 06/20/20 03:31 Consult Rx Perform Med Rec MISCELLANE ONCE PRN Consult order Polyethylene Glycol 17 gm 06/25/20 10:25 06/25/20 12:33 Polyethylene Glycol 3350 17 Gm Powd.Pack PO 17 gm DAILY PAPO Administration Risperidone 0.25 mg 06/22/20 21:00 06/24/20 21:13 Risperidone 0.25 Mg Tablet PO 0.25 mg BEDTIME PAPO Administration Sodium Chloride 3 ml 06/20/20 08:00 06/25/20 09:24 0.9 % Sodium Chloride Flush 3 Ml Syringe IVFLUSH 3 ml QSHIFT PAPO Administration Tramadol HCl 50 mg 06/25/20 11:39 06/25/20 12:34 Tramadol Hcl 50 Mg Tablet PO 50 mg Q6H PRN Administration Pain, Severe (Pain Scale 7-10) Trazodone HCl 50 mg 06/20/20 06:43 06/25/20 02:22 Trazodone Hcl 50 Mg Tablet PO 50 mg BEDTIME PRN Administration insomnia Labs CBC & Chem 7: 06/25/20 05:20 06/24/20 05:27 Microbiology Microbiology Results: Microbiology 06/23/20 07:37 Blood - Venous Blood Culture - Preliminary Viridans streptococcus group 06/23/20 07:37 Blood - Venous Blood Culture - Preliminary Streptococcus viridans group Assessment and Plan (1) Sepsis: Status: Acute (2) Leukemoid reaction: Status: Acute (3) PAF (paroxysmal atrial fibrillation): Status: Acute (4) Gram-positive bacteremia: Status: Acute (5) Osteomyelitis of great toe of left foot: Status: Acute (6) Rhabdomyolysis: Status: Acute (7) FELIX (acute kidney injury): Status: Acute Assessment and Plan: This is a 65-year-old female with past medical history as mentioned above who presents to the hospital with complaints of frequent falls. Found to have rhabdomyolysis, FELIX. admitted for further management. Sepsis Gram-positive bacteremia Blood cultures growing Streptococcus viridans pending final sensitivity To repeat blood cultures Source likely from osteomyelitis in left toe Respiratory panel negative Continue Zosyn and vancomycin day 3 Id input appreciated, to check CT scan for the abdomen Osteomyelitis Left big toe osteomyelitis confirmed by XR of the foot Discussed with the patient, she would prefer antibiotic treatment to get surgical evaluation for debridement and discussed surgical option New onset atrial fibrillation with RVR Likely secondary to sepsis Rate better controlled today Start full anticoagulation with Lovenox To wean down Cardizem drip, start p.o. Cardizem To use beta-vince as needed as pushes Hold on digoxin and amiodarone for now Echo showing low normal EF with no wall motion abnormality Cardiology input appreciated, consider diuresis Continue with IV Lasix daily Hypomagnesemia Magnesium improved to 2 after replacement Lactic acidosis Resolved Secondary to infection DC IV fluids Elevated D-dimer D-dimer elevated around 1999 Likely secondary to sepsis, kidney injury Echo not showing any right-sided strain She is on full-dose Lovenox for the time being Will hold on any further imaging given recent acute kidney injury and need of contrast, Wells criteria score of 3, score less than 4 unlikely to have PE. To check ultrasound for DVT Will hold on CTA, consider V/Q scan and the patient is more stable if needed FELIX, resolved secondary to rhabdomyolysis Monitor intake and output Monitor BMP Nausea and vomiting resolved Use Zofran as needed Microcytic anemia Patient reports having anemia before but she cannot remember the exact numbers, no baseline for comparison Hemoglobin of stable between 8-9 has normal MCV, denies melena or bright red blood per rectum Low iron level and saturation Normal ferritin level, B12, folic acid No bleeding identified follow CBC Multiple falls No evidence of syncope CT head negative for any acute findings likely multifactorial, diabetic neuropathy, postural hypotension, physical deconditioning Neurology input appreciated PT evaluation Hyperglycemia secondary to diabetes mellitus hold metformin Continue low-dose sliding scale insulin diabetic diet hypertension continue amlodipine, losartan, hypothyroidism continue levothyroxine DVT prophylaxis Lovenox
--- NOTE | 2020-06-25 13:49 | PM.CNGS ---
History of Present Illness Consult details Consult date: 06/25/20 Reason for consult: other (Osteomyelitis left 1st metatarsal head) Requesting physician: Amilcar Quiñonez Narrative: This is a 65-year-old female who presented to the emergency room for evaluation after experiencing multiple falls at home. 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 She has a walker. She says that she was not using it regularly until recently. She is using it regularly at home now but says that she catches her foot on it from time to time. She has a history of bilateral foot ulcerations. X-ray of the left foot reveals erosion of the medial aspect of the 1st metatarsal head consistent with osteomyelitis. She reports that she is following up routinely with her social welfare administrator in [place] for wound care. She also has seen Dr. Santos at [facility] vascular surgery. She reports that she had an ultrasound examination of her lower extremities done earlier this year and that she was told that blood flow to her feet is adequate. She has a follow-up appointment scheduled with Dr. Santos in about 6 months. Currently, she is reporting back and buttock pain which she states is related to having been in bed for so long. She has no complaints of foot pain. She does not report fever or chills. [facility] Past Medical History Medical History Carcinoid tumor Diabetic foot ulcers Hypertension Hypothyroidism Leukemoid reaction Type 2 diabetes mellitus Social History Social History Household Members: None Housing: Apartment Do you presently have visiting nurse or other home services: Yes Smoking Status: Never smoker Second Hand Smoke Exposure: No Use of substances other than those prescribed or required for medical reasons: No Currently Displaying Signs/Symptoms of Drug Intoxication Withdrawal: No Have you been hit, kicked, punched, or otherwise hurt by someone within the past year? If so, by whom?: No Do you feel safe in your current relationship?: No Current Relationship Is there a partner from a previous relationship who is making you feel unsafe now?: No Are you made to feel afraid or neglected: No Advance Directives: No Advance Directives Information Provided: Yes Do you have thoughts of harming others: None Do you have a plan to hurt others: No Plan Recently lost weight without trying: No service: No Current occupational status: retired Meds Allergies Allergy/AdvReac Type Severity Reaction Status Date / Time chlorthalidone Allergy Unknown ACUTE Verified 06/20/20 11:43 [CHLORTHALIDONE] RENAL FAILURE Iodine and Iodide Containing Allergy Unknown UNKNOWN Verified 06/20/20 11:43 Produc [IODINE AND IODIDE CONTAINING PRODUC] levofloxacin [From LEVAQUIN] AdvReac Unknown NAUSEA & Verified 06/20/20 11:43 VOMITING Penicillins [PENICILLINS] AdvReac Unknown RASH Verified 06/20/20 11:43 Sulfa (Sulfonamide AdvReac Unknown RASH Verified 06/20/20 11:43 Antibiotics) [SULFA (SULFONAMIDE ANTIBIOTICS)] TAPE,PAPER Allergy Unknown UNKNOWN Uncoded 03/28/20 18:54 Home Medications Medication Instructions Recorded Confirmed Type amlodipine 1 tab PO DAILY 06/20/20 06/20/20 History aspirin 81 mg PO BEDTIME 06/20/20 06/20/20 History cholecalciferol (vitamin D3) 800 units PO DAILY 06/20/20 06/20/20 History cyanocobalamin (vitamin B-12) 500 mcg PO DAILY 06/20/20 06/20/20 History diclofenac sodium 2 g TOPICAL BID 06/20/20 06/20/20 History doxycycline hyclate 1 tab PO BID 06/20/20 06/20/20 History duloxetine 1 cap PO QAM 06/20/20 06/20/20 History furosemide 1 tab PO DAILY 06/20/20 06/20/20 History insulin glargine [Lantus Solostar 40 unit SUBCUT BEDTIME 06/20/20 06/20/20 History U-100 Insulin] levothyroxine 1 tab PO DAILY 06/20/20 06/20/20 History losartan 1 tab PO DAILY 06/20/20 06/20/20 History melatonin 2 tab PO BEDTIME 06/20/20 06/20/20 History metformin 2 tab PO BEDTIME 06/20/20 06/20/20 History metoprolol succinate 1 tab PO DAILY 06/20/20 06/20/20 History pantoprazole 1 tab PO DAILY 06/20/20 06/20/20 History risperidone [Risperdal] 0.25 mg PO BEDTIME 06/20/20 06/20/20 History simvastatin 1 tab PO BEDTIME 06/20/20 06/20/20 History trazodone 1 - 2 tab PO BEDTIME PRN 06/20/20 06/20/20 History Physical Exam Vital Signs: Vital Signs: Last Vital Signs Temp 96.8 F 06/25/20 11:06 Pulse 72 06/25/20 11:06 Resp 20 06/25/20 11:06 BP 143/69 H 06/25/20 11:06 Pulse Ox 96 06/25/20 11:06 Body Mass Index 30.6 Const: General: cooperative and alert Extrem: Other: Left foot: Clean approximately 3 cm ulcer plantar aspect over 1st metatarsal head extending to bone, no tenderness, no discharge or odor, no surrounding erythema. Pedal pulses are not palpable. Foot is warm. Results Labs Result diagrams: 06/25/20 05:20 06/24/20 05:27 Labs: Abnormal lab results 06/24/20 06/24/20 06/24/20 Range/Units 05:27 11:25 15:32 WBC (4.8-10.8) X10*3/uL RBC (4.20-5.50) X10*6/uL Hgb (12.0-16.0) g/dl Hct (37-47) % Plt Count (160-400) X10*3/uL POC Glucose 300 H (60-115) mg/dL Magnesium 1.4 L* (1.6-2.6) mg/dL B-Natriuretic Peptide (<100) pg/mL Vancomycin Trough < 3.0 L (10.0-20.0) mcg/mL 06/24/20 06/24/20 06/24/20 Range/Units 15:53 18:13 20:52 WBC (4.8-10.8) X10*3/uL RBC (4.20-5.50) X10*6/uL Hgb (12.0-16.0) g/dl Hct (37-47) % Plt Count (160-400) X10*3/uL POC Glucose 296 H 224 H (60-115) mg/dL Magnesium (1.6-2.6) mg/dL B-Natriuretic Peptide 594 H (<100) pg/mL Vancomycin Trough (10.0-20.0) mcg/mL 12/15/20 12/15/20 12/15/20 Range/Units 05:20 09:00 11:18 WBC 27.6 H (4.8-10.8) X10*3/uL RBC 3.00 L (4.20-5.50) X10*6/uL Hgb 8.4 L (12.0-16.0) g/dl Hct 25.8 L (37-47) % Plt Count 452 H (160-400) X10*3/uL POC Glucose 279 H 280 H (60-115) mg/dL Magnesium (1.6-2.6) mg/dL B-Natriuretic Peptide (<100) pg/mL Vancomycin Trough (10.0-20.0) mcg/mL Short CBC 06/25/20 Range/Units 05:20 WBC 27.6 H (4.8-10.8) X10*3/uL Hgb 8.4 L (12.0-16.0) g/dl Hct 25.8 L (37-47) % Plt Count 452 H (160-400) X10*3/uL BMP 06/25/20 05:20 Sodium Cancelled Potassium Cancelled Chloride Cancelled Carbon Dioxide Cancelled BUN Cancelled Creatinine Cancelled Calcium Cancelled Liver Function 06/25/20 Range/Units 05:20 Total Bilirubin Cancelled Direct Bilirubin Cancelled AST Cancelled ALT Cancelled Alkaline Phosphatase Cancelled Albumin Cancelled Urine 06/19/20 06/23/20 Range/Units 22:58 08:15 Urine Color YELLOW YELLOW Urine Appearance CLEAR CLEAR Urine pH 5.5 5.5 (5.0-8.0) Ur Specific [place] 1.020 >= 1.030 H (1.005-1.025) Urine Protein 2+ H 2+ H (NEG-TRACE) MG/DL Urine Glucose (UA) 100 H 500 H (NEG) MG/DL All other labs normal. Assessment and Plan (1) Osteomyelitis of great toe of left foot: Status: Acute (2) Acute osteomyelitis of metatarsal bone of left foot: Status: Acute She has a longstanding ulcer of the plantar aspect of the left distal foot. The left metatarsal head is exposed in the base of the ulcer. Pedal pulses are not palpable. Treatment options include continued local care and long-term IV antibiotics though given the degree of soft tissue loss overlying the metatarsal head, it appears unlikely that the ulcer would heal. Debridement of the metatarsal head or excision of the MP joint may be an option. Transmetatarsal amputation would be more definitive, but in the absence of palpable pulses, re-evaluation with vascular surgery would be needed. I discussed this with her. She expressed interest in following up with her vascular surgeon, Dr. Santos. Continue local care, antibiotics at this time.
[2020-06-25] MEDS: dilTIAZem HCL 30 MG TABLET PO ×3 (15:43→22:12)
[2020-06-25 16:58] LABS: Glucose, Whole Blood 199 mg/dL (60-115)
[2020-06-25 20:46] LABS: Glucose, Whole Blood 179 mg/dL (60-115)
[2020-06-25] MEDS: risperiDONE 0.25 MG TABLET PO (22:11)
[2020-06-25] MEDS: Aspirin Enteric Coated 81 MG TABLET.DR PO (22:11)
[2020-06-25] MEDS: Atorvastatin Calcium 10 MG TABLET PO (22:11)
[2020-06-26] MEDS: 0.9 % Sodium Chloride Flush 3 ML SYRINGE IVFLUSH ×3 (00:42→16:52)
[2020-06-26] MEDS: Piperacillin Sodium/Tazobactam 3.375 GM in 0.9 % Sodium Chloride 50 ML IV ×4 (02:20→21:11)
[2020-06-26] MEDS: vancomycin HCL 750 MG in 0.9 % Sodium Chloride 250 ML 265 MG IV (03:00)
[2020-06-26] MEDS: traMADoL HCL 50 MG TABLET PO ×2 (03:05→21:12)
[2020-06-26 04:00] VITALS: BP 111/52; PULSE 73; RESP 20; TEMP 36.5; O2SAT 97
[2020-06-26] MEDS: Acetaminophen 325 MG TABLET 650 MG PO (04:57)
[2020-06-26] MEDS: Levothyroxine Sodium 75 MCG TABLET PO (06:07)
[2020-06-26] MEDS: Omeprazole 20 MG CAPSULE.DR PO (06:07)
[2020-06-26 08:00] VITALS: BP 105/54; PULSE 86; RESP 18; TEMP 36.4; O2SAT 99
[2020-06-26 08:07] LABS: Glucose, Whole Blood 186 mg/dL (60-115)
[2020-06-26 08:11] LABS: Hematocrit 24.8 % (37-47); Hemoglobin 8.1 g/dl (12.0-16.0); Mean Corpuscular HGB Conc 32.7 g/dl (31.0-35.0); Mean Corpuscular Hemoglobin 27.7 pg (27.0-33.0); Mean Corpuscular Volume 84.9 fL (80-98); Mean Platelet Volume 10.2 fL (9.4-12.3); Platelet Count 417 X10*3/uL (160-400); Red Blood Count 2.92 X10*6/uL (4.20-5.50); Red Cell Distribution Width 12.7 % (11.0-16.0); White Blood Count 19.8 X10*3/uL (4.8-10.8)
--- NOTE | 2020-06-26 08:12 | PC.NURSE ---
7P-7A SHIFT; BEDTIME POC 179, COVERED WITH 2 UNITS SLIDING SCALE HUMALOG. LANTUS 40 UNITS BEDTIME HELD PER HOSPITALIST.
[2020-06-26] MEDS: polyethylene glycoL 3350 17 GM POWD.PACK PO (08:23)
[2020-06-26] MEDS: Insulin Lispro 100 UNIT/ML 3 ML VIAL SUBCUT ×3 (08:24→16:56)
[2020-06-26] MEDS: Losartan Potassium 50 MG TABLET PO (08:24)
[2020-06-26] MEDS: Metoprolol Succinate ER 50 MG TAB.ER.24H PO (08:25)
[2020-06-26] MEDS: DULoxetine HCl 60 MG CAPSULE.DR PO (08:26)
[2020-06-26] MEDS: amLODIPine Besylate 10 MG TABLET PO (08:27)
[2020-06-26] MEDS: dilTIAZem HCL 30 MG TABLET PO ×4 (08:28→21:12)
[2020-06-26] MEDS: Docusate Sodium 100 MG CAPSULE PO ×2 (08:28→21:12)
[2020-06-26] MEDS: Enoxaparin Sodium 100 MG/ML SYRINGE 80 MG SUBCUT ×2 (08:30→21:13)
[2020-06-26 08:45] LABS: Anion Gap 15 (12-20); Blood Urea Nitrogen 29 mg/dL (9-16); Calcium 7.6 mg/dL (8.4-10.2); Carbon Dioxide 20 mmol/L (22-29); Chloride 100 mmol/L (96-108); Creatinine Clr Calc Pharmacy 46.8; Estimated Glomerular Filt Rate 41; Glucose Random 178 mg/dL (60-115); Potassium 3.1 mmol/l (3.3-5.1); Sodium 132 mmol/L (135-145); Vancomycin Trough 21.8 mcg/mL (10.0-20.0)
[2020-06-26 10:56] VITALS: BP 105/54; PULSE 86; O2SAT 99
[2020-06-26 11:10] VITALS: BP 109/71; PULSE 68; RESP 20; TEMP 36.4; O2SAT 99
[2020-06-26 11:13] LABS: Glucose, Whole Blood 271 mg/dL (60-115)
--- NOTE | 2020-06-26 13:43 | MHC.CM.PN ---
CM spoke with patient re: discharge to [facility] for 6 wks IV ABT. Patient has referred CM to sister Zara who is researching [facility]. CM spoke with Zara by phone and did give choices for rehab. Referrals made to [facility] and [facility]. Referrals also made to [facility], [facility], [facility] and [facility]. CM will continue to follow patient for discharge needs.
[2020-06-26 15:20] LABS: Vancomycin Trough 17.8 mcg/mL (10.0-20.0)
[2020-06-26 15:39] VITALS: BP 116/72; PULSE 88; RESP 20; TEMP 36.5; O2SAT 98
--- NOTE | 2020-06-26 16:28 | HO.PM.IMPN ---
Subjective Subjective Date of Service: 06/26/20 Interval History: Patient seen and examined at bedside patient reported no complaint Systemic review: No fever, chills but reports generalized weakness No chest pain, palpitation Mild shortness of breath and coughing No abdominal pain, nausea or vomiting No urinary symptoms No any rash or wounds Review of Systems Short of breath Neurologic Neurologic: Reports confusion Psychiatric Psychiatric: Reports confusion Physical Exam Vital Signs: Vital Signs: Last Vital Signs Temp 97.7 F 06/26/20 15:39 Pulse 88 06/26/20 15:39 Resp 20 06/26/20 15:39 BP 116/72 06/26/20 15:39 Pulse Ox 98 06/26/20 15:39 Body Mass Index 30.6 Const: General: cooperative, no acute distress and confusion Orientation/consciousness: patient oriented x3 and confusion Eyes: General: appearance normal, both eyes and all related structures Pupils: Equal, round and reactive pupils present Resp: Effort & Inspection: normal respiratory effort and able to speak in complete sentences Auscultation: clear to auscultation bilaterally Cardio: Rate: regular rate Rhythm: regular rhythm GI: Palpation (GI): Soft to palpation Auscultation: normal bowel sounds Skin: General skin exam: no rashes or lesions noted Neuro: General: patient oriented x3 and confusion Cranial nerves: Yes Equal, round and reactive pupils present Cognition (Neuro): normal cognition Extrem: General: Yes no pedal edema Objective Data Current Medications Generic Name Dose Route Start Last Admin Trade Name Freq PRN Reason Stop Dose Admin Acetaminophen 650 mg 06/20/20 06:39 06/26/20 04:57 Acetaminophen 325 Mg Tablet PO 650 mg Q6H PRN Administration Pain, Mild (Pain Scale 1-3) Amlodipine Besylate 10 mg 06/20/20 09:00 06/26/20 08:27 Amlodipine Besylate 10 Mg Tablet PO 10 mg DAILY [facility] Administration Protocol Aspirin 81 mg 06/23/20 21:00 06/25/20 22:11 Aspirin Enteric Coated 81 Mg Tablet.Dr PO 81 mg BEDTIME [facility] Administration Atorvastatin Calcium 10 mg 06/20/20 21:00 06/25/20 22:11 Atorvastatin Calcium 10 Mg Tablet PO 10 mg BEDTIME [facility] Administration Diltiazem HCl 30 mg 06/25/20 14:00 06/26/20 13:25 Diltiazem Hcl 30 Mg Tablet PO 30 mg QID [facility] Administration Protocol Diphenhydramine HCl 25 mg 06/23/20 07:37 06/23/20 13:49 Diphenhydramine Hcl 50 Mg/Ml Vial IVPUSH 25 mg Q6H PRN Administration Allergic Reaction Docusate Sodium 100 mg 06/20/20 06:39 Docusate Sodium 100 Mg Capsule PO DAILY PRN Constipation Docusate Sodium 100 mg 06/24/20 21:00 06/26/20 08:28 Docusate Sodium 100 Mg Capsule PO 100 mg BID [facility] Administration Duloxetine HCl 60 mg 06/20/20 09:00 06/26/20 08:26 Duloxetine Hcl 60 Mg Capsule.Dr PO 60 mg DAILY [facility] Administration Enoxaparin Sodium 80 mg 06/24/20 09:00 06/26/20 08:30 Enoxaparin Sodium 100 Mg/Ml Syringe SUBCUT 80 mg Q12H [facility] Administration Piperacillin Sod/Tazobactam 50 mls @ 100 mls/hr 06/23/20 08:00 06/26/20 13:56 Sod 3.375 gm/ Sodium Chloride IV Infused Q6H [facility] Infusion Diltiazem HCl 125 mg/ Sodium 125 mls @ 0 mls/hr 06/24/20 08:45 06/25/20 18:20 Chloride IVCONT 0 mg/hr .Q0M [facility] 0 mls/hr Titration Protocol Per Protocol Vancomycin HCl 750 mg/ Sodium 265 mls @ 265 mls/hr 06/25/20 03:00 06/26/20 04:00 Chloride IV Infused Q12H [facility] Infusion Insulin Glargine 40 unit 06/20/20 21:00 06/25/20 22:33 Insulin Glargine,Hum.Rec.Anlog 100 Unit/Ml 10 Ml Vial SUBCUT Not Given BEDTIME [facility] Insulin Human Lispro 0 unit 06/20/20 07:30 06/26/20 11:19 Insulin Lispro 100 Unit/Ml 3 Ml Vial SUBCUT 6 unit QIDACHS [facility] Administration Protocol Levothyroxine Sodium 75 mcg 06/24/20 06:00 06/26/20 06:07 Levothyroxine Sodium 75 Mcg Tablet PO 75 mcg DAILY@0600 [facility] Administration Losartan Potassium 50 mg 06/20/20 09:00 06/26/20 08:24 Losartan Potassium 50 Mg Tablet PO 50 mg DAILY [facility] Administration Protocol Metoprolol Succinate 50 mg 06/20/20 09:00 06/26/20 08:25 Metoprolol Succinate Er 50 Mg Tab.Er.24h PO 50 mg DAILY [facility] Administration Protocol Omeprazole 20 mg 06/20/20 07:30 06/26/20 06:07 Omeprazole 20 Mg Capsule.Dr PO 20 mg DAILY@0630 [facility] Administration Ondansetron HCl 4 mg 06/20/20 06:39 06/23/20 01:38 Ondansetron Hcl 4 Mg/2 Ml Vial IVPUSH 4 mg Q8H PRN Administration Nausea and Vomiting Pharmacy Consult 1 each 06/20/20 03:31 Consult Rx Perform Med Rec MISCELLANE ONCE PRN Consult order Polyethylene Glycol 17 gm 06/25/20 10:25 06/26/20 08:23 Polyethylene Glycol 3350 17 Gm Powd.Pack PO 17 gm DAILY [facility] Administration Risperidone 0.25 mg 06/22/20 21:00 06/25/20 22:11 Risperidone 0.25 Mg Tablet PO 0.25 mg BEDTIME [facility] Administration Sodium Chloride 3 ml 06/20/20 08:00 06/26/20 08:20 0.9 % Sodium Chloride Flush 3 Ml Syringe IVFLUSH 3 ml QSHIFT [facility] Administration Tramadol HCl 50 mg 06/25/20 11:39 06/26/20 03:05 Tramadol Hcl 50 Mg Tablet PO 50 mg Q6H PRN Administration Pain, Severe (Pain Scale 7-10) Trazodone HCl 50 mg 06/20/20 06:43 06/25/20 22:12 Trazodone Hcl 50 Mg Tablet PO 50 mg BEDTIME PRN Administration insomnia Labs CBC & Chem 7: 06/26/20 07:17 06/26/20 07:00 Microbiology Microbiology Results: Microbiology 06/23/20 07:37 Blood - Venous Blood Culture - Preliminary Streptococcus intermedius 06/23/20 07:37 Blood - Venous Blood Culture - Preliminary Streptococcus intermedius 06/24/20 15:31 Blood - Venous Blood Culture - Preliminary No growth after 24 hours. 06/24/20 15:31 Blood - Venous Blood Culture - Preliminary No growth after 24 hours. Assessment and Plan (1) Sepsis: Status: Acute (2) Leukemoid reaction: Status: Acute (3) PAF (paroxysmal atrial fibrillation): Status: Acute (4) Gram-positive bacteremia: Status: Acute (5) Osteomyelitis of great toe of left foot: Status: Acute (6) Rhabdomyolysis: Status: Acute (7) FELIX (acute kidney injury): Status: Acute Assessment and Plan: This is a 65-year-old female with past medical history as mentioned above who presents to the hospital with complaints of frequent falls. Found to have rhabdomyolysis, FELIX. admitted for further management. Sepsis Gram-positive bacteremia Blood cultures growing Streptococcus viridans pending final sensitivity repeat blood cultures pending Source likely from osteomyelitis in left toe Respiratory panel negative Continue Zosyn and vancomycin day 4 Id input appreciated, Osteomyelitis Left big toe osteomyelitis confirmed by XR of the foot Discussed with the patient, she would prefer antibiotic treatment surgery consulted recommended vascular surgery evaluation but patient wants to follow-up with his on vascular surgeon Dr. Jeronimo at [facility] New onset atrial fibrillation with RVR Likely secondary to sepsis Rate better controlled continue Lovenox continue Cardizem Echo showing low normal EF with no wall motion abnormality Cardiology input appreciated, Continue with IV Lasix daily Hypomagnesemia Magnesium improved to 2 after replacement Lactic acidosis Resolved Secondary to infection DC IV fluids Elevated D-dimer D-dimer elevated around 2000 Likely secondary to sepsis, kidney injury venous Doppler negative for DVT FELIX, resolved secondary to rhabdomyolysis Monitor intake and output Monitor BMP Nausea and vomiting resolved Use Zofran as needed Microcytic anemia Patient reports having anemia before but she cannot remember the exact numbers, no baseline for comparison Hemoglobin of stable between 8-9 has normal MCV, denies melena or bright red blood per rectum Low iron level and saturation Normal ferritin level, B12, folic acid No bleeding identified follow CBC Multiple falls No evidence of syncope CT head negative for any acute findings likely multifactorial, diabetic neuropathy, postural hypotension, physical deconditioning Neurology input appreciated PT evaluation Hyperglycemia secondary to diabetes mellitus hold metformin Continue low-dose sliding scale insulin diabetic diet hypertension continue amlodipine, losartan, hypothyroidism continue levothyroxine DVT prophylaxis Lovenox
[2020-06-26 16:56] LABS: Glucose, Whole Blood 235 mg/dL (60-115)
[2020-06-26] MEDS: ondansetron HCL 4 MG/2 ML VIAL IVPUSH (17:02)
[2020-06-26 19:51] VITALS: BP 146/65; PULSE 90; RESP 18; TEMP 36.7; O2SAT 93
[2020-06-26 19:56] LABS: Glucose, Whole Blood 218 mg/dL (60-115)
[2020-06-26 20:51] LABS: Glucose, Whole Blood 185 mg/dL (60-115)
[2020-06-26] MEDS: Atorvastatin Calcium 10 MG TABLET PO (21:12)
[2020-06-26] MEDS: risperiDONE 0.25 MG TABLET PO (21:12)
[2020-06-26] MEDS: Insulin Glargine,Hum.rec.anlog 100 UNIT/ML 10 ML VIAL 40 UNIT SUBCUT (21:12)
[2020-06-26] MEDS: Aspirin Enteric Coated 81 MG TABLET.DR PO (21:12)
[2020-06-27] VITALS (10 sets, daily range): BP systolic 107–144; BP diastolic 69–79; PULSE 82–128; RESP 18–22; TEMP 36.1–36.4; O2SAT 97–99
[2020-06-27] MEDS: 0.9 % Sodium Chloride Flush 3 ML SYRINGE IVFLUSH ×4 (00:14→21:35)
[2020-06-27] MEDS: Acetaminophen 325 MG TABLET 650 MG PO ×2 (00:38→13:20)
[2020-06-27] MEDS: Piperacillin Sodium/Tazobactam 3.375 GM in 0.9 % Sodium Chloride 50 ML IV ×4 (01:59→21:33)
[2020-06-27] MEDS: vancomycin HCL 750 MG in 0.9 % Sodium Chloride 250 ML 265 MG IV (03:08)
[2020-06-27] MEDS: Levothyroxine Sodium 75 MCG TABLET PO (05:29)
[2020-06-27] MEDS: Omeprazole 20 MG CAPSULE.DR PO (05:29)
[2020-06-27 08:25] LABS: Glucose, Whole Blood 220 mg/dL (60-115)
[2020-06-27] MEDS: Insulin Lispro 100 UNIT/ML 3 ML VIAL SUBCUT ×3 (08:43→17:38)
[2020-06-27] MEDS: polyethylene glycoL 3350 17 GM POWD.PACK PO (08:44)
[2020-06-27] MEDS: Enoxaparin Sodium 100 MG/ML SYRINGE 80 MG SUBCUT ×2 (08:44→21:35)
[2020-06-27] MEDS: DULoxetine HCl 60 MG CAPSULE.DR PO (08:45)
[2020-06-27] MEDS: Metoprolol Succinate ER 50 MG TAB.ER.24H PO (08:45)
[2020-06-27] MEDS: Losartan Potassium 50 MG TABLET PO (08:45)
[2020-06-27] MEDS: amLODIPine Besylate 10 MG TABLET PO (08:45)
[2020-06-27] MEDS: Docusate Sodium 100 MG CAPSULE PO ×2 (08:46→21:34)
[2020-06-27] MEDS: dilTIAZem HCL 30 MG TABLET PO (08:46)
[2020-06-27] MEDS: traMADoL HCL 50 MG TABLET PO ×2 (08:59→21:34)
[2020-06-27 10:43] LABS: Hematocrit 31.3 % (37-47); Hemoglobin 10.3 g/dl (12.0-16.0); Mean Corpuscular HGB Conc 32.9 g/dl (31.0-35.0); Mean Corpuscular Hemoglobin 27.6 pg (27.0-33.0); Mean Corpuscular Volume 83.9 fL (80-98); Mean Platelet Volume 11.2 fL (9.4-12.3); Platelet Count 375 X10*3/uL (160-400); Red Blood Count 3.73 X10*6/uL (4.20-5.50); Red Cell Distribution Width 12.6 % (11.0-16.0); White Blood Count 20.1 X10*3/uL (4.8-10.8)
[2020-06-27 11:26] LABS: Glucose, Whole Blood 257 mg/dL (60-115)
[2020-06-27 11:31] LABS: Atypical Lymph Absolute Manual 0.2 x10*3/uL; Atypical Lymphs Percent Manual 1 % (0-6); Band Neutrophils Percent 3 % (3-5); Lymphocytes Absolute Manual 3.2 X10*3/uL (0.6-4.8); Lymphocytes Percent Manual 16 % (20-40); Metamyelocytes Absolute 0.4 X10*3/uL; Metamyelocytes Percent 2 %; Monocytes Absolute Manual 1.4 X10*3/uL (0.0-1.2); Monocytes Percent Manual 7 % (2-11); Neutrophils Absolute Manual 14.9 X10*3/uL (2.2-7.9); Neutrophils Percent Manual 71 % (45-73)
[2020-06-27 11:32] LABS: Hypochromasia 1+; Platelet Estimate NORMAL (NORMAL); Platelet Morphology Comment NORMAL; RBC Morphology NOTED
--- NOTE | 2020-06-27 12:23 | P.PNCA_ITS ---
Subjective Subjective Date of Service: 06/27/20 Interval history: Heart rate better controlled. Her breathing is better but still she feels short of breath. Also saying her appetite is poor. Repeat blood cultures are negative. Review of Systems Review of Systems Poor appetite Yes all other systems are reviewed and are negative Physical Exam Vital Signs: Last Vital Signs Temp 97.0 F 06/27/20 11:56 Pulse 82 06/27/20 11:56 Resp 18 06/27/20 11:56 BP 118/72 06/27/20 11:56 Pulse Ox 99 06/27/20 11:56 Body Mass Index 30.6 GENERAL APPEARANCE: Frail looking. In no distress. HEENT: unremarkable. HEAD: normocephalic, atraumatic. NECK/THYROID: no carotid bruit, no jugular venous distention. SKIN: Open wounds both feet. HEART: no murmurs, irregular rhythm, S1, S2 normal. LUNGS: clear to auscultation bilaterally. ABDOMEN: normal, bowel sounds present, soft, nontender, nondistended. EXTREMITIES: No significant edema. NEUROLOGIC: nonfocal, alert and oriented. PSYCH: Depressed. Results Labs and Meds Result diagrams: 06/27/20 10:25 06/26/20 07:00 Lab results: Laboratory Results - last 24 hr 06/26/20 06/26/20 06/26/20 14:05 16:53 19:51 WBC RBC Hgb Hct MCV MCH MCHC RDW Plt Count MPV Immature Gran % (Auto) Neut % (Auto) Lymph % (Auto) Blaine % (Auto) Eos % (Auto) Baso % (Auto) Lymph # (Auto) Blaine # (Auto) Eos # (Auto) Baso # (Auto) Abs Immat Gran (auto) Absolute Neuts (auto) Absolute Nucleated RBC Nucleated RBC % (auto) Neutrophils % (Manual) Band Neutrophils % Lymphocytes % (Manual) Atypical Lymphs % (Man) Monocytes % (Manual) Metamyelocytes % Abs Neuts (Manual) Lymphocytes # (Manual) Atyp Lymphs # (Manual) Monocytes # (Manual) Metamyelocytes # Platelet Estimate Plt Morphology Comment RBC Morphology Hypochromasia Sodium Potassium Chloride Carbon Dioxide Anion Gap BUN Creatinine Estim Creat Clear Calc Estimated GFR POC Glucose 235 H 218 H Random Glucose Calcium Vancomycin Trough 17.8 06/26/20 06/27/20 06/27/20 20:47 08:21 10:25 WBC 20.1 H RBC 3.73 L D Hgb 10.3 L D Hct 31.3 L D MCV 83.9 MCH 27.6 MCHC 32.9 RDW 12.6 Plt Count 375 MPV 11.2 Immature Gran % (Auto) Cancelled Neut % (Auto) Cancelled Lymph % (Auto) Cancelled Blaine % (Auto) Cancelled Eos % (Auto) Cancelled Baso % (Auto) Cancelled Lymph # (Auto) Cancelled Blaine # (Auto) Cancelled Eos # (Auto) Cancelled Baso # (Auto) Cancelled Abs Immat Gran (auto) Cancelled Absolute Neuts (auto) Cancelled Absolute Nucleated RBC 0.000 Nucleated RBC % (auto) 0.0 Neutrophils % (Manual) 71 Band Neutrophils % 3 Lymphocytes % (Manual) 16 L Atypical Lymphs % (Man) 1 Monocytes % (Manual) 7 Metamyelocytes % 2 Abs Neuts (Manual) 14.9 H Lymphocytes # (Manual) 3.2 Atyp Lymphs # (Manual) 0.2 Monocytes # (Manual) 1.4 H Metamyelocytes # 0.4 Platelet Estimate NORMAL Plt Morphology Comment NORMAL RBC Morphology NOTED Hypochromasia 1+ Sodium Potassium Chloride Carbon Dioxide Anion Gap BUN Creatinine Estim Creat Clear Calc Estimated GFR POC Glucose 185 H 220 H Random Glucose Calcium Vancomycin Trough 06/27/20 06/27/20 10:25 11:19 WBC RBC Hgb Hct MCV MCH MCHC RDW Plt Count MPV Immature Gran % (Auto) Neut % (Auto) Lymph % (Auto) Blaine % (Auto) Eos % (Auto) Baso % (Auto) Lymph # (Auto) Blaine # (Auto) Eos # (Auto) Baso # (Auto) Abs Immat Gran (auto) Absolute Neuts (auto) Absolute Nucleated RBC Nucleated RBC % (auto) Neutrophils % (Manual) Band Neutrophils % Lymphocytes % (Manual) Atypical Lymphs % (Man) Monocytes % (Manual) Metamyelocytes % Abs Neuts (Manual) Lymphocytes # (Manual) Atyp Lymphs # (Manual) Monocytes # (Manual) Metamyelocytes # Platelet Estimate Plt Morphology Comment RBC Morphology Hypochromasia Sodium Cancelled Potassium Cancelled Chloride Cancelled Carbon Dioxide Cancelled Anion Gap Cancelled BUN Cancelled Creatinine Cancelled Estim Creat Clear Calc Cancelled Estimated GFR Cancelled POC Glucose 257 H Random Glucose Cancelled Calcium Cancelled Vancomycin Trough Progress Note: A&P Assessment and plan (1) Acute osteomyelitis of metatarsal bone of left foot: Status: Acute (2) Gram-positive bacteremia: Status: Acute (3) PAF (paroxysmal atrial fibrillation): Status: Acute Assessment and Plan: 65-year-old female with bacteremia secondary to osteomyelitis and atrial fibrillation rapid ventricular response. Rate controlled at this point with Cardizem. I think the Cardizem can be changed to long-acting form, 120 mg CD. Continue metoprolol as before. Anticoagulation is a challenge because she had multiple falls in the past. She has neuropathy and amputations of toes with open wounds on the feet and unfortunately she tries to walk and gets mechanical falls. I think anticoagulation decision will depend on features circumstances like if she is in any institution where she can be watched closely otherwise I feel it is not safe to give her anticoagulation if she is returning home in the same situation that she was in before. Signing off. Thank you for allowing me to participate in the care of your patient. Please feel free to contact me if you have any questions. Fall Risk Details Current Medications: Current Medications Generic Name Dose Route Start Last Admin Trade Name Freq PRN Reason Stop Dose Admin Acetaminophen 650 mg 06/20/20 06:39 06/27/20 00:38 Acetaminophen 325 Mg Tablet PO 650 mg Q6H PRN Administration Pain, Mild (Pain Scale 1-3) Amlodipine Besylate 10 mg 06/20/20 09:00 06/27/20 08:45 Amlodipine Besylate 10 Mg Tablet PO 10 mg DAILY [facility] Administration Protocol Aspirin 81 mg 06/23/20 21:00 06/26/20 21:12 Aspirin Enteric Coated 81 Mg Tablet. PO 81 mg BEDTIME [facility] Administration Atorvastatin Calcium 10 mg 06/20/20 21:00 06/26/20 21:12 Atorvastatin Calcium 10 Mg Tablet PO 10 mg BEDTIME [facility] Administration Diltiazem HCl 30 mg 06/25/20 14:00 06/27/20 08:46 Diltiazem Hcl 30 Mg Tablet PO 30 mg QID [facility] Administration Protocol Diphenhydramine HCl 25 mg 06/23/20 07:37 06/23/20 13:49 Diphenhydramine Hcl 50 Mg/Ml Vial IVPUSH 25 mg Q6H PRN Administration Allergic Reaction Docusate Sodium 100 mg 06/20/20 06:39 Docusate Sodium 100 Mg Capsule PO DAILY PRN Constipation Docusate Sodium 100 mg 06/24/20 21:00 06/27/20 08:46 Docusate Sodium 100 Mg Capsule PO 100 mg BID [facility] Administration Duloxetine HCl 60 mg 06/20/20 09:00 06/27/20 08:45 Duloxetine Hcl 60 Mg Capsule. PO 60 mg DAILY [facility] Administration Enoxaparin Sodium 80 mg 06/24/20 09:00 06/27/20 08:44 Enoxaparin Sodium 100 Mg/Ml Syringe SUBCUT 80 mg Q12H [facility] Administration Piperacillin Sod/Tazobactam 50 mls @ 100 mls/hr 06/23/20 08:00 06/27/20 09:14 Sod 3.375 gm/ Sodium Chloride IV Infused Q6H [facility] Infusion Vancomycin HCl 750 mg/ Sodium 265 mls @ 265 mls/hr 06/25/20 03:00 06/27/20 04:15 Chloride IV Infused Q12H [facility] Infusion Insulin Glargine 40 unit 06/20/20 21:00 06/26/20 21:12 Insulin Glargine,Hum.Rec.Anlog 100 Unit/Ml 10 Ml Vial SUBCUT 40 unit BEDTIME [facility] Administration Insulin Human Lispro 0 unit 06/20/20 07:30 06/27/20 08:43 Insulin Lispro 100 Unit/Ml 3 Ml Vial SUBCUT 4 unit QIDACHS [facility] Administration Protocol Levothyroxine Sodium 75 mcg 06/24/20 06:00 06/27/20 05:29 Levothyroxine Sodium 75 Mcg Tablet PO 75 mcg DAILY@0600 [facility] Administration Losartan Potassium 50 mg 06/20/20 09:00 06/27/20 08:45 Losartan Potassium 50 Mg Tablet PO 50 mg DAILY [facility] Administration Protocol Metoprolol Succinate 50 mg 06/20/20 09:00 06/27/20 08:45 Metoprolol Succinate Er 50 Mg Tab.Er.24h PO 50 mg DAILY [facility] Administration Protocol Omeprazole 20 mg 06/20/20 07:30 06/27/20 05:29 Omeprazole 20 Mg Capsule. PO 20 mg DAILY@0630 [facility] Administration Ondansetron HCl 4 mg 06/20/20 06:39 06/26/20 17:02 Ondansetron Hcl 4 Mg/2 Ml Vial IVPUSH 4 mg Q8H PRN Administration Nausea and Vomiting Pharmacy Consult 1 each 06/20/20 03:31 Consult Rx Perform Med Rec MISCELLANE ONCE PRN Consult order Polyethylene Glycol 17 gm 06/25/20 10:25 06/27/20 08:44 Polyethylene Glycol 3350 17 Gm Powd.Pack PO 17 gm DAILY [facility] Administration Risperidone 0.25 mg 06/22/20 21:00 06/26/20 21:12 Risperidone 0.25 Mg Tablet PO 0.25 mg BEDTIME [facility] Administration Sodium Chloride 3 ml 06/20/20 08:00 06/27/20 08:44 0.9 % Sodium Chloride Flush 3 Ml Syringe IVFLUSH 3 ml QSHIFT [facility] Administration Tramadol HCl 50 mg 06/25/20 11:39 06/27/20 08:59 Tramadol Hcl 50 Mg Tablet PO 50 mg Q6H PRN Administration Pain, Severe (Pain Scale 7-10) Trazodone HCl 50 mg 06/20/20 06:43 06/25/20 22:12 Trazodone Hcl 50 Mg Tablet PO 50 mg BEDTIME PRN Administration insomnia Time Spent With Patient Time: Total time spent is greater than 50% in coordination of care (as documented) at patient's floor/unit and/or counseling patient: Time with patient: less than 15 minutes
[2020-06-27] MEDS: dilTIAZem HCL CD 120 MG CAP.ER.DEG PO (13:20)
[2020-06-27 13:48] LABS: Anion Gap 12 (12-20); Blood Urea Nitrogen 19 mg/dL (9-16); Carbon Dioxide 23 mmol/L (22-29); Chloride 99 mmol/L (96-108); Creatinine Clr Calc Pharmacy 47.9; Estimated Glomerular Filt Rate 42; Glucose Random 280 mg/dL (60-115); Potassium 3.1 mmol/l (3.3-5.1); Sodium 131 mmol/L (135-145)
[2020-06-27 13:54] LABS: Vancomycin Random 15.4 mcg/mL (15-20)
--- NOTE | 2020-06-27 15:01 | HO.PM.IMPN ---
Subjective Subjective Date of Service: 06/27/20 Interval History: Patient seen and examined at bedside patient reported no complaint Systemic review: No fever, chills but reports generalized weakness No chest pain, palpitation Mild shortness of breath and coughing No abdominal pain, nausea or vomiting No urinary symptoms No any rash or wounds Review of Systems Short of breath Neurologic Neurologic: Reports confusion Psychiatric Psychiatric: Reports confusion Physical Exam Vital Signs: Vital Signs: Last Vital Signs Temp 97.0 F 06/27/20 11:56 Pulse 82 06/27/20 13:20 Resp 18 06/27/20 11:56 BP 118/72 06/27/20 13:20 Pulse Ox 99 06/27/20 11:56 Body Mass Index 30.6 Const: General: cooperative, no acute distress and confusion Orientation/consciousness: patient oriented x3 and confusion Eyes: General: appearance normal, both eyes and all related structures Pupils: Equal, round and reactive pupils present Resp: Effort & Inspection: normal respiratory effort and able to speak in complete sentences Auscultation: clear to auscultation bilaterally Cardio: Rate: regular rate Rhythm: regular rhythm GI: Palpation (GI): Soft to palpation Auscultation: normal bowel sounds Skin: General skin exam: no rashes or lesions noted Neuro: General: patient oriented x3 and confusion Cranial nerves: Yes Equal, round and reactive pupils present Cognition (Neuro): normal cognition Extrem: General: Yes no pedal edema Objective Data Current Medications Generic Name Dose Route Start Last Admin Trade Name Freq PRN Reason Stop Dose Admin Acetaminophen 650 mg 06/20/20 06:39 06/27/20 13:20 Acetaminophen 325 Mg Tablet PO 650 mg Q6H PRN Administration Pain, Mild (Pain Scale 1-3) Amlodipine Besylate 10 mg 06/20/20 09:00 06/27/20 08:45 Amlodipine Besylate 10 Mg Tablet PO 10 mg DAILY [facility] Administration Protocol Aspirin 81 mg 06/23/20 21:00 06/26/20 21:12 Aspirin Enteric Coated 81 Mg Tablet.Dr PO 81 mg BEDTIME [facility] Administration Atorvastatin Calcium 10 mg 06/20/20 21:00 06/26/20 21:12 Atorvastatin Calcium 10 Mg Tablet PO 10 mg BEDTIME [facility] Administration Diltiazem HCl 120 mg 06/27/20 12:55 06/27/20 13:20 Diltiazem Hcl Cd 120 Mg Cap.Er.Deg PO 120 mg DAILY [facility] Administration Protocol Docusate Sodium 100 mg 06/20/20 06:39 Docusate Sodium 100 Mg Capsule PO DAILY PRN Constipation Docusate Sodium 100 mg 06/24/20 21:00 06/27/20 08:46 Docusate Sodium 100 Mg Capsule PO 100 mg BID [facility] Administration Duloxetine HCl 60 mg 06/20/20 09:00 06/27/20 08:45 Duloxetine Hcl 60 Mg Capsule. PO 60 mg DAILY [facility] Administration Enoxaparin Sodium 80 mg 06/24/20 09:00 06/27/20 08:44 Enoxaparin Sodium 100 Mg/Ml Syringe SUBCUT 80 mg Q12H [facility] Administration Piperacillin Sod/Tazobactam 50 mls @ 100 mls/hr 06/23/20 08:00 06/27/20 14:12 Sod 3.375 gm/ Sodium Chloride IV Infused Q6H [facility] Infusion Insulin Glargine 40 unit 06/20/20 21:00 06/26/20 21:12 Insulin Glargine,Hum.Rec.Anlog 100 Unit/Ml 10 Ml Vial SUBCUT 40 unit BEDTIME [facility] Administration Insulin Human Lispro 0 unit 06/20/20 07:30 06/27/20 12:36 Insulin Lispro 100 Unit/Ml 3 Ml Vial SUBCUT 6 unit QIDACHS [facility] Administration Protocol Levothyroxine Sodium 75 mcg 06/24/20 06:00 06/27/20 05:29 Levothyroxine Sodium 75 Mcg Tablet PO 75 mcg DAILY@0600 [facility] Administration Losartan Potassium 50 mg 06/20/20 09:00 06/27/20 08:45 Losartan Potassium 50 Mg Tablet PO 50 mg DAILY [facility] Administration Protocol Metoprolol Succinate 50 mg 06/20/20 09:00 06/27/20 08:45 Metoprolol Succinate Er 50 Mg Tab.Er.24h PO 50 mg DAILY [facility] Administration Protocol Omeprazole 20 mg 06/20/20 07:30 06/27/20 05:29 Omeprazole 20 Mg Capsule. PO 20 mg DAILY@0630 [facility] Administration Ondansetron HCl 4 mg 06/20/20 06:39 06/26/20 17:02 Ondansetron Hcl 4 Mg/2 Ml Vial IVPUSH 4 mg Q8H PRN Administration Nausea and Vomiting Pharmacy Consult 1 each 06/20/20 03:31 Consult Rx Perform Med Rec MISCELLANE ONCE PRN Consult order Polyethylene Glycol 17 gm 06/25/20 10:25 06/27/20 08:44 Polyethylene Glycol 3350 17 Gm Powd.Pack PO 17 gm DAILY [facility] Administration Risperidone 0.25 mg 06/22/20 21:00 06/26/20 21:12 Risperidone 0.25 Mg Tablet PO 0.25 mg BEDTIME [facility] Administration Sodium Chloride 3 ml 06/20/20 08:00 06/27/20 08:44 0.9 % Sodium Chloride Flush 3 Ml Syringe IVFLUSH 3 ml QSHIFT [facility] Administration Tramadol HCl 50 mg 06/25/20 11:39 06/27/20 08:59 Tramadol Hcl 50 Mg Tablet PO 50 mg Q6H PRN Administration Pain, Severe (Pain Scale 7-10) Trazodone HCl 50 mg 06/20/20 06:43 06/25/20 22:12 Trazodone Hcl 50 Mg Tablet PO 50 mg BEDTIME PRN Administration insomnia Labs CBC & Chem 7: 06/27/20 10:25 06/27/20 13:14 Microbiology Microbiology Results: Microbiology 06/24/20 15:31 Blood - Venous Blood Culture - Preliminary No growth after 48 hours. 06/24/20 15:31 Blood - Venous Blood Culture - Preliminary No growth after 48 hours. 06/23/20 07:37 Blood - Venous Blood Culture - Preliminary Streptococcus intermedius 06/23/20 07:37 Blood - Venous Blood Culture - Preliminary Streptococcus intermedius Assessment and Plan (1) Sepsis: Status: Acute (2) Leukemoid reaction: Status: Acute (3) PAF (paroxysmal atrial fibrillation): Status: Acute (4) Gram-positive bacteremia: Status: Acute (5) Osteomyelitis of great toe of left foot: Status: Acute (6) Rhabdomyolysis: Status: Acute (7) FELIX (acute kidney injury): Status: Acute Assessment and Plan: This is a 65-year-old female with past medical history as mentioned above who presents to the hospital with complaints of frequent falls. Found to have rhabdomyolysis, FELIX. admitted for further management. Sepsis Gram-positive bacteremia Blood cultures growing Streptococcus viridans Repeat blood cultures preliminary negative Source likely from osteomyelitis in left toe Respiratory panel negative Continue Zosyn day 4 Id input appreciated, Will get PICC line Osteomyelitis Left big toe osteomyelitis confirmed by XR of the foot Discussed with the patient, she would prefer antibiotic treatment surgery consulted recommended vascular surgery evaluation but patient wants to follow-up with his on vascular surgeon Dr. Jeronimo at [facility] New onset atrial fibrillation with RVR Likely secondary to sepsis Rate better controlled continue Lovenox continue Cardizem Echo showing low normal EF with no wall motion abnormality Cardiology input appreciated, Continue lasixs Hypomagnesemia Magnesium improved to 2 after replacement Lactic acidosis Resolved Secondary to infection DC IV fluids Elevated D-dimer D-dimer elevated around 1999 Likely secondary to sepsis, kidney injury venous Doppler negative for DVT FELIX, resolved secondary to rhabdomyolysis Monitor intake and output Monitor BMP Nausea and vomiting resolved Use Zofran as needed Microcytic anemia Patient reports having anemia before but she cannot remember the exact numbers, no baseline for comparison Hemoglobin of stable between 8-9 has normal MCV, denies melena or bright red blood per rectum Low iron level and saturation Normal ferritin level, B12, folic acid No bleeding identified follow CBC Multiple falls No evidence of syncope CT head negative for any acute findings likely multifactorial, diabetic neuropathy, postural hypotension, physical deconditioning Neurology input appreciated PT evaluation Hyperglycemia secondary to diabetes mellitus hold metformin Continue low-dose sliding scale insulin diabetic diet hypertension continue amlodipine, losartan, hypothyroidism continue levothyroxine DVT prophylaxis Lovenox plan to discharge to rehab on IV antibiotic once culture finalize
[2020-06-27 16:54] LABS: Glucose, Whole Blood 200 mg/dL (60-115)
[2020-06-27 21:26] LABS: Glucose, Whole Blood 120 mg/dL (60-115)
[2020-06-27] MEDS: Aspirin Enteric Coated 81 MG TABLET.DR PO (21:34)
[2020-06-27] MEDS: Insulin Glargine,Hum.rec.anlog 100 UNIT/ML 10 ML VIAL 40 UNIT SUBCUT (21:34)
[2020-06-27] MEDS: Atorvastatin Calcium 10 MG TABLET PO (21:35)
[2020-06-27] MEDS: risperiDONE 0.25 MG TABLET PO (21:35)
[2020-06-28] VITALS (8 sets, daily range): BP systolic 113–157; BP diastolic 60–85; PULSE 57–98; RESP 18–20; TEMP 36.1–38.4; O2SAT 94–100
[2020-06-28 01:30] LABS: Glucose, Whole Blood 133 mg/dL (60-115)
[2020-06-28] MEDS: Piperacillin Sodium/Tazobactam 3.375 GM in 0.9 % Sodium Chloride 50 ML IV ×4 (01:58→21:40)
[2020-06-28] MEDS: Acetaminophen 325 MG TABLET 650 MG PO ×2 (03:26→20:04)
[2020-06-28] MEDS: Omeprazole 20 MG CAPSULE.DR PO (05:24)
[2020-06-28] MEDS: Levothyroxine Sodium 75 MCG TABLET PO (05:24)
[2020-06-28 06:29] LABS: Hematocrit 25.6 % (37-47); Hemoglobin 8.5 g/dl (12.0-16.0); Mean Corpuscular HGB Conc 33.2 g/dl (31.0-35.0); Mean Corpuscular Volume 84.2 fL (80-98); Mean Platelet Volume 10.2 fL (9.4-12.3); NRBC Pct Auto 0.1 /100WBC (0.0-0.2); Platelet Count 442 X10*3/uL (160-400); Red Blood Count 3.04 X10*6/uL (4.20-5.50); Red Cell Distribution Width 12.8 % (11.0-16.0); White Blood Count 23.8 X10*3/uL (4.8-10.8)
[2020-06-28 07:04] LABS: Anion Gap 17 (12-20); Blood Urea Nitrogen 19 mg/dL (9-16); Calcium 7.7 mg/dL (8.4-10.2); Carbon Dioxide 18 mmol/L (22-29); Chloride 103 mmol/L (96-108); Creatinine Clr Calc Pharmacy 52.4; Estimated Glomerular Filt Rate 47; Glucose Random 145 mg/dL (60-115); Potassium 3.2 mmol/l (3.3-5.1); Sodium 135 mmol/L (135-145)
[2020-06-28 07:06] LABS: Band Neutrophils Percent 1 % (3-5); Eosinophils Absolute Manual 0.5 X10*3/UL (0.0-0.8); Eosinophils Percent Manual 2 % (0-4); Lymphocytes Absolute Manual 1.9 X10*3/uL (0.6-4.8); Lymphocytes Percent Manual 8 % (20-40); Metamyelocytes Absolute 0.2 X10*3/uL; Metamyelocytes Percent 1 %; Monocytes Absolute Manual 1.4 X10*3/uL (0.0-1.2); Monocytes Percent Manual 6 % (2-11); Neutrophils Absolute Manual 19.8 X10*3/uL (2.2-7.9); Neutrophils Percent Manual 82 % (45-73)
[2020-06-28 07:07] LABS: Platelet Estimate INCREASED (NORMAL); Platelet Morphology Comment L
[2020-06-28 07:08] LABS: Hypochromasia 1+; Microcytosis 1+; RBC Morphology NOTED
[2020-06-28 07:34] LABS: Glucose, Whole Blood 180 mg/dL (60-115)
[2020-06-28] MEDS: dilTIAZem HCL CD 120 MG CAP.ER.DEG PO (08:47)
[2020-06-28] MEDS: amLODIPine Besylate 10 MG TABLET PO (08:47)
[2020-06-28] MEDS: polyethylene glycoL 3350 17 GM POWD.PACK PO (08:47)
[2020-06-28] MEDS: Losartan Potassium 50 MG TABLET PO (08:48)
[2020-06-28] MEDS: Docusate Sodium 100 MG CAPSULE PO ×2 (08:48→21:43)
[2020-06-28] MEDS: Potassium Chloride ER 20 MEQ TAB.ER.PRT PO (08:48)
[2020-06-28] MEDS: Enoxaparin Sodium 100 MG/ML SYRINGE 80 MG SUBCUT ×2 (08:48→21:40)
[2020-06-28] MEDS: DULoxetine HCl 60 MG CAPSULE.DR PO (08:48)
[2020-06-28] MEDS: Metoprolol Succinate ER 50 MG TAB.ER.24H PO (08:48)
[2020-06-28] MEDS: Insulin Lispro 100 UNIT/ML 3 ML VIAL SUBCUT ×4 (08:49→21:42)
[2020-06-28] MEDS: 0.9 % Sodium Chloride Flush 3 ML SYRINGE IVFLUSH ×2 (08:52→15:55)
[2020-06-28 11:01] LABS: Glucose, Whole Blood 232 mg/dL (60-115)
--- NOTE | 2020-06-28 13:26 | MHC.CLN ---
F/U 50% AVG PO INTAKE DIET RX: 1800DM-APPROPRIATE GLUCERNA BID IN PLACE PROVIDES 474KCALS, 20G PROTEIN FOLLOWING
--- NOTE | 2020-06-28 15:34 | MHC.CM.PN ---
patient has been denied by all STR's we referred her to. CM spoke with sister Marcia by phone and discussed other STR's. Per Marcia's request referrals where made to [facility], also referred to [facility]. CM will continue to follow patient for discharge needs.
[2020-06-28] MEDS: traMADoL HCL 50 MG TABLET PO (16:02)
--- NOTE | 2020-06-28 16:53 | P.PNIM_ITS ---
Subjective Subjective Date of Service: 06/28/20 Interval History: Patient seen and examined at bedside patient reported feeling weak today patient spiked fever of 101 Systemic review: Reports generalized weakness No chest pain, palpitation Mild shortness of breath and coughing No abdominal pain, nausea or vomiting No urinary symptoms No any rash or wounds Review of Systems Short of breath Neurologic Neurologic: Reports confusion Psychiatric Psychiatric: Reports confusion Physical Exam Vital Signs: Vital Signs: Last Vital Signs Temp 97 F 06/28/20 16:00 Pulse 98 06/28/20 16:00 Resp 20 06/28/20 16:00 BP 139/71 06/28/20 16:00 Pulse Ox 98 06/28/20 16:00 Body Mass Index 30.6 Const: General: cooperative, no acute distress and confusion Orientation/c onsciousness: patient oriented x3 and confusion Eyes: General: appearance normal, both eyes and all related structures Pupils: Equal, round and reactive pupils present Resp: Effort & Inspection: normal respiratory effort and able to speak in complete sentences Auscultation: clear to auscultation bilaterally Cardio: Rate: regular rate Rhythm: regular rhythm GI: Palpation (GI): Soft to palpation Auscultation: normal bowel sounds Skin: General skin exam: no rashes or lesions noted Neuro: General: patient oriented x3 and confusion Cranial nerves: Yes Equal, round and reactive pupils present Cognition (Neuro): normal cognition Extrem: General: Yes no pedal edema Objective Data Current Medications Generic Name Dose Route Start Last Admin Trade Name Freq PRN Reason Stop Dose Admin Acetaminophen 650 mg 06/20/20 06:39 06/28/20 03:26 Acetaminophen 325 Mg Tablet PO 650 mg Q6H PRN Administration Pain, Mild (Pain Scale 1-3) Amlodipine Besylate 10 mg 06/20/20 09:00 06/28/20 08:47 Amlodipine Besylate 10 Mg Tablet PO 10 mg DAILY [facility] Administration Protocol Aspirin 81 mg 06/23/20 21:00 06/27/20 21:34 Aspirin Enteric Coated 81 Mg Tablet.Dr PO 81 mg BEDTIME [facility] Administration Atorvastatin Calcium 10 mg 06/20/20 21:00 06/27/20 21:35 Atorvastatin Calcium 10 Mg Tablet PO 10 mg BEDTIME [facility] Administration Diltiazem HCl 120 mg 06/27/20 12:55 06/28/20 08:47 Diltiazem Hcl Cd 120 Mg Cap.Er.Deg PO 120 mg DAILY [facility] Administration Protocol Docusate Sodium 100 mg 06/20/20 06:39 Docusate Sodium 100 Mg Capsule PO DAILY PRN Constipation Docusate Sodium 100 mg 06/24/20 21:00 06/28/20 08:48 Docusate Sodium 100 Mg Capsule PO 100 mg BID [facility] Administration Duloxetine HCl 60 mg 06/20/20 09:00 06/28/20 08:48 Duloxetine Hcl 60 Mg Capsule. PO 60 mg DAILY [facility] Administration Enoxaparin Sodium 80 mg 06/24/20 09:00 06/28/20 08:48 Enoxaparin Sodium 100 Mg/Ml Syringe SUBCUT 80 mg Q12H [facility] Administration Piperacillin Sod/Tazobactam 50 mls @ 100 mls/hr 06/23/20 08:00 06/28/20 14:16 Sod 3.375 gm/ Sodium Chloride IV Infused Q6H [facility] Infusion Sodium Chloride 1,000 mls @ 100 mls/hr 06/28/20 16:15 Ns IVCONT .Q10H [facility] Vancomycin HCl 1,500 mg/ 280 mls @ 186.667 mls/hr 06/28/20 17:00 06/28/20 16:30 Sodium Chloride IV 186.67 mls/hr Q24H [facility] Administration Insulin Glargine 40 unit 06/20/20 21:00 06/27/20 21:34 Insulin Glargine,Hum.Rec.Anlog 100 Unit/Ml 10 Ml Vial SUBCUT 40 unit BEDTIME [facility] Administration Insulin Human Lispro 0 unit 06/20/20 07:30 06/28/20 11:57 Insulin Lispro 100 Unit/Ml 3 Ml Vial SUBCUT 4 unit QIDACHS [facility] Administration Protocol Levothyroxine Sodium 75 mcg 06/24/20 06:00 06/28/20 05:24 Levothyroxine Sodium 75 Mcg Tablet PO 75 mcg DAILY@0600 [facility] Administration Losartan Potassium 50 mg 06/20/20 09:00 06/28/20 08:48 Losartan Potassium 50 Mg Tablet PO 50 mg DAILY [facility] Administration Protocol Metoprolol Succinate 50 mg 06/20/20 09:00 06/28/20 08:48 Metoprolol Succinate Er 50 Mg Tab.Er.24h PO 50 mg DAILY [facility] Administration Protocol Omeprazole 20 mg 06/20/20 07:30 06/28/20 05:24 Omeprazole 20 Mg Capsule. PO 20 mg DAILY@0630 [facility] Administration Ondansetron HCl 4 mg 06/20/20 06:39 06/26/20 17:02 Ondansetron Hcl 4 Mg/2 Ml Vial IVPUSH 4 mg Q8H PRN Administration Nausea and Vomiting Pharmacy Consult 1 each 06/20/20 03:31 Consult Rx Perform Med Rec MISCELLANE ONCE PRN Consult order Pharmacy Consult 1 each 06/28/20 16:02 Consult Rx Vancomycin Dosing MISCELLANE DAILY PRN Consult order Polyethylene Glycol 17 gm 06/25/20 10:25 06/28/20 08:47 Polyethylene Glycol 3350 17 Gm Powd.Pack PO 17 gm DAILY [facility] Administration Risperidone 0.25 mg 06/22/20 21:00 06/27/20 21:35 Risperidone 0.25 Mg Tablet PO 0.25 mg BEDTIME [facility] Administration Sodium Chloride 3 ml 06/20/20 08:00 06/28/20 15:55 0.9 % Sodium Chloride Flush 3 Ml Syringe IVFLUSH 3 ml QSHIFT [facility] Administration Tramadol HCl 50 mg 06/25/20 11:39 06/28/20 16:02 Tramadol Hcl 50 Mg Tablet PO 50 mg Q6H PRN Administration Pain, Severe (Pain Scale 7-10) Trazodone HCl 50 mg 06/20/20 06:43 06/25/20 22:12 Trazodone Hcl 50 Mg Tablet PO 50 mg BEDTIME PRN Administration insomnia Labs CBC & Chem 7: 06/28/20 05:23 06/28/20 05:23 Microbiology Microbiology Results: Microbiology 06/23/20 07:37 Blood - Venous Blood Culture - Final Streptococcus intermedius 06/23/20 07:37 Blood - Venous Blood Culture - Final Streptococcus intermedius 06/24/20 15:31 Blood - Venous Blood Culture - Preliminary No growth after 48 hours. 06/24/20 15:31 Blood - Venous Blood Culture - Preliminary No growth after 48 hours. Assessment and Plan (1) Sepsis: Status: Acute (2) Leukemoid reaction: Status: Acute (3) PAF (paroxysmal atrial fibrillation): Status: Acute (4) Gram-positive bacteremia: Status: Acute (5) Osteomyelitis of great toe of left foot: Status: Acute (6) Rhabdomyolysis: Status: Acute (7) FELIX (acute kidney injury): Status: Acute Assessment and Plan: This is a 65-year-old female with past medical history as mentioned above who presents to the hospital with complaints of frequent falls. Found to have rhabdomyolysis, FELIX. admitted for further management. Sepsis secondary to infected foot ulcer and osteomyelitis leukocytosis initially improved but again worsening spiked fever Blood cultures growing Streptococcus viridans Repeat blood cultures preliminary negative Source likely from osteomyelitis in left toe Respiratory panel negative Continue Zosyn day 5 will restart vancomycin as spiking fever and worsening leukocytosis continue Vanco and Zosyn will start on IV fluids Will send repeat blood culture as spiking fever Id input appreciated, recommended continue Vanco and Zosyn surgery consulted recommended vascular surgery evaluation but patient wants to follow-up with his on vascular surgeon Dr. Jeronimo at [facility] patient refusing surgery currently and wants to continue IV antibiotic New onset atrial fibrillation with RVR heart rate on higher side Likely secondary to sepsis continue Lovenox will increase Cardizem Echo showing low normal EF with no wall motion abnormality Cardiology input appreciated, Continue lasixs on lovenox Hypomagnesemia Magnesium improved to 2 after replacement hypokalemia replaced monitor potassium Lactic acidosis Resolved Secondary to infection DC IV fluids Elevated D-dimer D-dimer elevated around 1999 Likely secondary to sepsis, kidney injury venous Doppler negative for DVT FELIX, resolved secondary to rhabdomyolysis Monitor intake and output Monitor BMP Nausea and vomiting resolved Use Zofran as needed Microcytic anemia Patient reports having anemia before but she cannot remember the exact numbers, no baseline for comparison Hemoglobin of stable between 8-9 has normal MCV, denies melena or bright red blood per rectum Low iron level and saturation Normal ferritin level, B12, folic acid No bleeding identified follow CBC Multiple falls No evidence of syncope CT head negative for any acute findings likely multifactorial, diabetic neuropathy, postural hypotension, physical deconditioning Neurology input appreciated PT evaluation Hyperglycemia secondary to diabetes mellitus hold metformin Continue low-dose sliding scale insulin diabetic diet hypertension continue amlodipine, losartan, hypothyroidism continue levothyroxine DVT prophylaxis Lovenox
[2020-06-28 17:02] LABS: Glucose, Whole Blood 194 mg/dL (60-115)
[2020-06-28 18:01] LABS: Magnesium 1.8 mg/dL (1.6-2.6)
[2020-06-28] MEDS: 0.9 % Sodium Chloride 1,000 ML 100 ML IVCONT (20:04)
[2020-06-28 21:26] LABS: Glucose, Whole Blood 274 mg/dL (60-115)
[2020-06-28] MEDS: Insulin Glargine,Hum.rec.anlog 100 UNIT/ML 10 ML VIAL 40 UNIT SUBCUT (21:41)
[2020-06-28] MEDS: Atorvastatin Calcium 10 MG TABLET PO (21:42)
[2020-06-28] MEDS: risperiDONE 0.25 MG TABLET PO (21:42)
[2020-06-28] MEDS: Aspirin Enteric Coated 81 MG TABLET.DR PO (21:42)
[2020-06-29] VITALS (7 sets, daily range): BP systolic 135–143; BP diastolic 62–84; PULSE 79–120; RESP 18–20; TEMP 36.2–36.7; O2SAT 95–100
[2020-06-29] MEDS: 0.9 % Sodium Chloride Flush 3 ML SYRINGE IVFLUSH ×2 (00:23→08:49)
[2020-06-29] MEDS: traZODone HCL 50 MG TABLET PO ×2 (01:24→21:03)
[2020-06-29] MEDS: Piperacillin Sodium/Tazobactam 3.375 GM in 0.9 % Sodium Chloride 50 ML IV ×3 (01:24→15:34)
[2020-06-29] MEDS: traMADoL HCL 50 MG TABLET PO ×2 (01:24→18:37)
[2020-06-29] MEDS: Omeprazole 20 MG CAPSULE.DR PO (05:45)
[2020-06-29] MEDS: 0.9 % Sodium Chloride 1,000 ML 100 ML IVCONT ×3 (05:45→23:50)
[2020-06-29] MEDS: Levothyroxine Sodium 75 MCG TABLET PO (05:45)
[2020-06-29 07:12] LABS: Hemoglobin 9.4 g/dl (12.0-16.0); Mean Corpuscular HGB Conc 32.4 g/dl (31.0-35.0); Mean Corpuscular Volume 86.3 fL (80-98); Mean Platelet Volume 10.2 fL (9.4-12.3); Platelet Count 407 X10*3/uL (160-400); Red Blood Count 3.36 X10*6/uL (4.20-5.50); Red Cell Distribution Width 13.2 % (11.0-16.0); White Blood Count 25.2 X10*3/uL (4.8-10.8)
[2020-06-29 08:01] LABS: Anion Gap 15 (12-20); Band Neutrophils Percent 0 % (3-5); Blood Urea Nitrogen 15 mg/dL (9-16); Calcium 7.9 mg/dL (8.4-10.2); Carbon Dioxide 21 mmol/L (22-29); Chloride 105 mmol/L (96-108); Creatinine Clr Calc Pharmacy 56.4; Eosinophils Absolute Manual 0.3 X10*3/UL (0.0-0.8); Eosinophils Percent Manual 1 % (0-4); Estimated Glomerular Filt Rate 51; Glucose Random 58 mg/dL (60-115); Lymphocytes Absolute Manual 2.3 X10*3/uL (0.6-4.8); Lymphocytes Percent Manual 9 % (20-40); Metamyelocytes Absolute 0.3 X10*3/uL; Metamyelocytes Percent 1 %; Monocytes Absolute Manual 0.3 X10*3/uL (0.0-1.2); Monocytes Percent Manual 1 % (2-11); Neutrophils Absolute Manual 22.2 X10*3/uL (2.2-7.9); Neutrophils Percent Manual 88 % (45-73); Potassium 2.9 mmol/l (3.3-5.1); Sodium 138 mmol/L (135-145)
[2020-06-29 08:02] LABS: Burr Cells 2+; Platelet Estimate NORMAL (NORMAL); Platelet Morphology Comment NORMAL; Polychromasia 1+; RBC Morphology NOTED
[2020-06-29 08:48] LABS: Glucose, Whole Blood 87 mg/dL (60-115)
[2020-06-29] MEDS: Metoprolol Succinate ER 50 MG TAB.ER.24H PO (08:48)
[2020-06-29] MEDS: DULoxetine HCl 60 MG CAPSULE.DR PO (08:49)
[2020-06-29] MEDS: dilTIAZem HCL CD 120 MG CAP.ER.DEG 240 MG PO (08:49)
[2020-06-29] MEDS: amLODIPine Besylate 10 MG TABLET PO (08:49)
[2020-06-29] MEDS: Enoxaparin Sodium 100 MG/ML SYRINGE 80 MG SUBCUT ×2 (08:51→21:02)
[2020-06-29] MEDS: Potassium Chloride ER 20 MEQ TAB.ER.PRT 40 MEQ PO (08:56)
[2020-06-29] MEDS: Potassium Chloride/H20 10 MEQ/100 ML PIGGYBACK 100 MEQ IV ×4 (08:57→12:51)
[2020-06-29] MEDS: Losartan Potassium 50 MG TABLET PO (08:57)
[2020-06-29 09:15] LABS: Glucose, Whole Blood 97 mg/dL (60-115)
[2020-06-29] MEDS: Acetaminophen 325 MG TABLET 650 MG PO ×2 (11:26→18:36)
[2020-06-29 12:12] LABS: Glucose, Whole Blood 129 mg/dL (60-115)
[2020-06-29 14:15] LABS: Potassium 3.9 mmol/l (3.3-5.1)
--- NOTE | 2020-06-29 14:16 | P.PNIM_ITS ---
Subjective Subjective Date of Service: 06/29/20 Interval History: Patient seen and examined at bedside patient reported feeling better than yesterday Systemic review: Reports generalized weakness No chest pain, palpitation Mild shortness of breath and coughing No abdominal pain, nausea or vomiting No urinary symptoms No any rash or wounds Review of Systems Short of breath Neurologic Neurologic: Reports confusion Psychiatric Psychiatric: Reports confusion Physical Exam Vital Signs: Vital Signs: Last Vital Signs Temp 97.2 F 06/29/20 12:34 Pulse 79 06/29/20 12:34 Resp 20 06/29/20 12:34 BP 140/84 H 06/29/20 12:34 Pulse Ox 99 06/29/20 12:34 Body Mass Index 30.6 Const: General: cooperative, no acute distress and confusion Orientation/consciousness: patient oriented x3 and confusion Eyes: General: appearance normal, both eyes and all related structures Pupils: Equal, round and reactive pupils present Resp: Effort & Inspection: normal respiratory effort and able to speak in complete sentences Auscultation: clear to auscultation bilaterally Cardio: Rate: regular rate Rhythm: regular rhythm GI: Palpation (GI): Soft to palpation Auscultation: normal bowel sounds Skin: General skin exam: no rashes or lesions noted Neuro: General: patient oriented x3 and confusion Cranial nerves: Yes Equal, round and reactive pupils present Cognition (Neuro): normal cognition Extrem: General: Yes no pedal edema Objective Data Current Medications Generic Name Dose Route Start Last Admin Trade Name Freq PRN Reason Stop Dose Admin Acetaminophen 650 mg 06/20/20 06:39 06/29/20 11:26 Acetaminophen 325 Mg Tablet PO 650 mg Q6H PRN Administration Pain, Mild (Pain Scale 1-3) Amlodipine Besylate 10 mg 06/20/20 09:00 06/29/20 08:49 Amlodipine Besylate 10 Mg Tablet PO 10 mg DAILY [facility] Administration Protocol Aspirin 81 mg 06/23/20 21:00 06/28/20 21:42 Aspirin Enteric Coated 81 Mg Tablet.Dr PO 81 mg BEDTIME [facility] Administration Atorvastatin Calcium 10 mg 06/20/20 21:00 06/28/20 21:42 Atorvastatin Calcium 10 Mg Tablet PO 10 mg BEDTIME [facility] Administration Diltiazem HCl 240 mg 06/29/20 09:00 06/29/20 08:49 Diltiazem Hcl Cd 120 Mg Cap.Er.Deg PO 240 mg DAILY [facility] Administration Protocol Docusate Sodium 100 mg 06/20/20 06:39 Docusate Sodium 100 Mg Capsule PO DAILY PRN Constipation Docusate Sodium 100 mg 06/24/20 21:00 06/29/20 08:52 Docusate Sodium 100 Mg Capsule PO Not Given BID [facility] Duloxetine HCl 60 mg 06/20/20 09:00 06/29/20 08:49 Duloxetine Hcl 60 Mg Capsule.Dr PO 60 mg DAILY [facility] Administration Enoxaparin Sodium 80 mg 06/24/20 09:00 06/29/20 08:51 Enoxaparin Sodium 100 Mg/Ml Syringe SUBCUT 80 mg Q12H [facility] Administration Piperacillin Sod/Tazobactam 50 mls @ 100 mls/hr 06/23/20 08:00 06/29/20 09:05 Sod 3.375 gm/ Sodium Chloride IV Infused Q6H [facility] Infusion Sodium Chloride 1,000 mls @ 100 mls/hr 06/28/20 16:15 06/29/20 05:45 Ns IVCONT 100 mls/hr .Q10H [facility] Administration Vancomycin HCl 1,500 mg/ 280 mls @ 186.667 mls/hr 06/28/20 17:00 06/28/20 18:41 Sodium Chloride IV Infused Q24H [facility] Infusion Insulin Glargine 40 unit 06/20/20 21:00 06/28/20 21:41 Insulin Glargine,Hum.Rec.Anlog 100 Unit/Ml 10 Ml Vial SUBCUT 40 unit BEDTIME [facility] Administration Insulin Human Lispro 0 unit 06/20/20 07:30 06/29/20 11:45 Insulin Lispro 100 Unit/Ml 3 Ml Vial SUBCUT Not Given QIDACHS [facility] Protocol Levothyroxine Sodium 75 mcg 06/24/20 06:00 06/29/20 05:45 Levothyroxine Sodium 75 Mcg Tablet PO 75 mcg DAILY@0600 [facility] Administration Losartan Potassium 50 mg 06/20/20 09:00 06/29/20 08:57 Losartan Potassium 50 Mg Tablet PO 50 mg DAILY [facility] Administration Protocol Metoprolol Succinate 50 mg 06/20/20 09:00 06/29/20 08:48 Metoprolol Succinate Er 50 Mg Tab.Er.24h PO 50 mg DAILY [facility] Administration Protocol Omeprazole 20 mg 06/20/20 07:30 06/29/20 05:45 Omeprazole 20 Mg Capsule. PO 20 mg DAILY@0630 [facility] Administration Ondansetron HCl 4 mg 06/20/20 06:39 06/26/20 17:02 Ondansetron Hcl 4 Mg/2 Ml Vial IVPUSH 4 mg Q8H PRN Administration Nausea and Vomiting Pharmacy Consult 1 each 06/20/20 03:31 Consult Rx Perform Med Rec MISCELLANE ONCE PRN Consult order Pharmacy Consult 1 each 06/28/20 16:02 Consult Rx Vancomycin Dosing MISCELLANE DAILY PRN Consult order Polyethylene Glycol 17 gm 06/25/20 10:25 06/29/20 08:52 Polyethylene Glycol 3350 17 Gm Powd.Pack PO Not Given DAILY [facility] Risperidone 0.25 mg 06/22/20 21:00 06/28/20 21:42 Risperidone 0.25 Mg Tablet PO 0.25 mg BEDTIME [facility] Administration Sodium Chloride 3 ml 06/20/20 08:00 06/29/20 08:49 0.9 % Sodium Chloride Flush 3 Ml Syringe IVFLUSH 3 ml QSHIFT [facility] Administration Tramadol HCl 50 mg 06/25/20 11:39 06/29/20 01:24 Tramadol Hcl 50 Mg Tablet PO 50 mg Q6H PRN Administration Pain, Severe (Pain Scale 7-10) Trazodone HCl 50 mg 06/20/20 06:43 06/29/20 01:24 Trazodone Hcl 50 Mg Tablet PO 50 mg BEDTIME PRN Administration insomnia Labs CBC & Chem 7: 06/29/20 06:23 06/29/20 13:35 Microbiology Microbiology Results: Microbiology 06/23/20 07:37 Blood - Venous Blood Culture - Final Streptococcus intermedius 06/23/20 07:37 Blood - Venous Blood Culture - Final Streptococcus intermedius 06/24/20 15:31 Blood - Venous Blood Culture - Preliminary No growth after 48 hours. 06/24/20 15:31 Blood - Venous Blood Culture - Preliminary No growth after 48 hours. Assessment and Plan (1) Sepsis: Status: Acute (2) Leukemoid reaction: Status: Acute (3) PAF (paroxysmal atrial fibrillation): Status: Acute (4) Gram-positive bacteremia: Status: Acute (5) Osteomyelitis of great toe of left foot: Status: Acute (6) Rhabdomyolysis: Status: Acute (7) FELIX (acute kidney injury): Status: Acute Assessment and Plan: This is a 65-year-old female with past medical history as mentioned above who presents to the hospital with complaints of frequent falls. Found to have rhabdomyolysis, FELIX. admitted for further management. Sepsis secondary to infected foot ulcer and osteomyelitis leukocytosis initially improved but again worsening spiked fever Blood cultures growing Streptococcus viridans Repeat blood cultures preliminary negative Source likely from osteomyelitis in left toe Respiratory panel negative Continue Zosyn day 6 Vanco was stopped but restarted again continue Vanco and Zosyn monitor Vanco trough continue IV fluids repeat blood culture pending Id input appreciated, recommended continue Vanco and Zosyn surgery consulted recommended vascular surgery evaluation but patient wants to follow-up with his on vascular surgeon Dr. Jeronimo at [facility] patient refusing surgery currently and wants to continue IV antibiotic New onset atrial fibrillation with RVR heart rate improving Likely secondary to sepsis continue lovenox continue Cardizem Echo showing low normal EF with no wall motion abnormality Cardiology input appreciated, Continue lasixs on lovenox Hypomagnesemia Magnesium improved to 2 after replacement hypokalemia replaced monitor potassium Lactic acidosis Resolved Secondary to infection DC IV fluids Elevated D-dimer D-dimer elevated around 2000 Likely secondary to sepsis, kidney injury venous Doppler negative for DVT FELIX, resolved secondary to rhabdomyolysis Monitor intake and output Monitor BMP Nausea and vomiting resolved Use Zofran as needed Microcytic anemia Patient reports having anemia before but she cannot remember the exact numbers, no baseline for comparison Hemoglobin of stable between 8-9 has normal MCV, denies melena or bright red blood per rectum Low iron level and saturation Normal ferritin level, B12, folic acid No bleeding identified follow CBC Multiple falls No evidence of syncope CT head negative for any acute findings likely multifactorial, diabetic neuropathy, postural hypotension, physical deconditioning Neurology input appreciated PT evaluation Hyperglycemia secondary to diabetes mellitus hold metformin Continue low-dose sliding scale insulin diabetic diet hypertension continue amlodipine, losartan, hypothyroidism continue levothyroxine DVT prophylaxis Lovenox
[2020-06-29 16:45] LABS: Glucose, Whole Blood 129 mg/dL (60-115)
[2020-06-29] MEDS: cefTRIAXone sodium 1 GM in 0.9 % Sodium Chloride 50 ML IV (18:37)
[2020-06-29 20:40] LABS: Glucose, Whole Blood 139 mg/dL (60-115)
[2020-06-29] MEDS: Atorvastatin Calcium 10 MG TABLET PO (21:03)
[2020-06-29] MEDS: risperiDONE 0.25 MG TABLET PO (21:03)
[2020-06-29] MEDS: Aspirin Enteric Coated 81 MG TABLET.DR PO (21:03)
[2020-06-30] VITALS (9 sets, daily range): BP systolic 114–181; BP diastolic 60–94; PULSE 86–129; RESP 16–20; TEMP 36.2–37; O2SAT 91–100
[2020-06-30] MEDS: Acetaminophen 325 MG TABLET 650 MG PO ×2 (03:55→20:32)
[2020-06-30] MEDS: ondansetron HCL 4 MG/2 ML VIAL IVPUSH ×2 (05:40→15:56)
[2020-06-30 07:06] LABS: PLT CLUMP 1; Red Cell Distribution Width 13.8 % (11.0-16.0)
[2020-06-30 07:08] LABS: Hemoglobin 8.5 g/dl (12.0-16.0); Mean Corpuscular HGB Conc 31.5 g/dl (31.0-35.0); Mean Corpuscular Volume 88.8 fL (80-98); Mean Platelet Volume 11.8 fL (9.4-12.3); NRBC Pct Auto 0.1 /100WBC (0.0-0.2); Platelet Count 241 X10*3/uL (160-400); Red Blood Count 3.04 X10*6/uL (4.20-5.50); White Blood Count 23.2 X10*3/uL (4.8-10.8)
[2020-06-30 07:20] LABS: Anion Gap 18 (12-20); Blood Urea Nitrogen 11 mg/dL (9-16); Calcium 7.8 mg/dL (8.4-10.2); Carbon Dioxide 15 mmol/L (22-29); Chloride 109 mmol/L (96-108); Creatinine Clr Calc Pharmacy 53.8; Estimated Glomerular Filt Rate 49; Glucose Random 165 mg/dL (60-115); Potassium 3.6 mmol/l (3.3-5.1); Sodium 138 mmol/L (135-145)
[2020-06-30 08:06] LABS: Lymphocytes Absolute Manual 2.8 X10*3/uL (0.6-4.8); Lymphocytes Percent Manual 12 % (20-40); Metamyelocytes Absolute 0.2 X10*3/uL; Metamyelocytes Percent 1 %; Monocytes Absolute Manual 2.3 X10*3/uL (0.0-1.2); Monocytes Percent Manual 10 % (2-11); Neutrophils Percent Manual 77 % (45-73)
[2020-06-30 08:07] LABS: Glucose, Whole Blood 196 mg/dL (60-115)
[2020-06-30 08:07] LABS: Band Neutrophils Percent 0 % (3-5); Neutrophils Absolute Manual 17.9 X10*3/uL (2.2-7.9); RBC Morphology NORMAL
[2020-06-30 08:08] LABS: Microcytosis 1+; Platelet Estimate NORMAL (NORMAL); Platelet Morphology Comment NORMAL
[2020-06-30] MEDS: Insulin Lispro 100 UNIT/ML 3 ML VIAL SUBCUT (08:30)
[2020-06-30] MEDS: Enoxaparin Sodium 100 MG/ML SYRINGE 80 MG SUBCUT ×2 (08:31→20:24)
[2020-06-30] MEDS: Losartan Potassium 50 MG TABLET PO (08:35)
[2020-06-30] MEDS: Levothyroxine Sodium 75 MCG TABLET PO (08:35)
[2020-06-30] MEDS: Sodium Bicarbonate 650 MG TABLET PO ×2 (08:35→21:44)
[2020-06-30] MEDS: DULoxetine HCl 60 MG CAPSULE.DR PO (08:35)
[2020-06-30] MEDS: Omeprazole 20 MG CAPSULE.DR PO (08:36)
[2020-06-30] MEDS: Metoprolol Succinate ER 50 MG TAB.ER.24H PO (08:37)
[2020-06-30] MEDS: amLODIPine Besylate 10 MG TABLET PO (08:37)
[2020-06-30] MEDS: dilTIAZem HCL CD 120 MG CAP.ER.DEG 240 MG PO (08:37)
[2020-06-30] MEDS: 0.9 % Sodium Chloride 1,000 ML 100 ML IVCONT ×3 (08:43→23:16)
[2020-06-30 11:32] LABS: Glucose, Whole Blood 197 mg/dL (60-115)
--- NOTE | 2020-06-30 11:51 | P.PNCA_ITS ---
Subjective Subjective Date of Service: 06/30/20 Principal diagnosis: Afib Interval history: Saying she is feeling lousy. She has no appetite. Telemetry showing AFib with RVR. She is nauseous and throwing up. Review of Systems Review of Systems Lousy, nauseous Yes all other systems are reviewed and are negative Reports confusion Psychiatric: Reports confusion Physical Exam Vital Signs: Last Vital Signs Temp 97.6 F 06/30/20 11:21 Pulse 129 H 06/30/20 11:21 Resp 18 06/30/20 11:21 BP 181/79 H 06/30/20 11:21 Pulse Ox 94 06/30/20 11:21 Body Mass Index 30.6 GENERAL APPEARANCE: Frail looking. In no distress. HEENT: unremarkable. HEAD: normocephalic, atraumatic. NECK/THYROID: no carotid bruit, no jugular venous distention. SKIN: Open wounds both feet. HEART: no murmurs, irregular rhythm, S1, S2 normal. tachycardic LUNGS: clear to auscultation bilaterally. ABDOMEN: normal, bowel sounds present, soft, nontender, nondistended. EXTREMITIES: No significant edema. NEUROLOGIC: nonfocal, alert and oriented. PSYCH: Depressed. Const General: confusion Orientation/consciousness: confusion Neuro General: confusion Results Labs and Meds Result diagrams: 06/30/20 06:06 06/30/20 06:06 Lab results: Laboratory Results - last 24 hr 06/29/20 06/29/20 06/29/20 11:10 13:35 16:37 WBC RBC Hgb Hct MCV MCH MCHC RDW Plt Count MPV Immature Gran % (Auto) Neut % (Auto) Lymph % (Auto) [place] % (Auto) Eos % (Auto) Baso % (Auto) Lymph # (Auto) [place] # (Auto) Eos # (Auto) Baso # (Auto) Abs Immat Gran (auto) Absolute Neuts (auto) Absolute Nucleated RBC Nucleated RBC % (auto) Neutrophils % (Manual) Band Neutrophils % Lymphocytes % (Manual) Monocytes % (Manual) Metamyelocytes % Abs Neuts (Manual) Lymphocytes # (Manual) Monocytes # (Manual) Metamyelocytes # Platelet Estimate Plt Morphology Comment RBC Morphology Microcytosis Sodium Potassium 3.9 D Chloride Carbon Dioxide Anion Gap BUN Creatinine Estim Creat Clear Calc Estimated GFR POC Glucose 129 H 129 H Random Glucose Calcium 06/29/20 06/30/20 06/30/20 20:37 06:06 06:06 WBC 23.2 H RBC 3.04 L Hgb 8.5 L Hct 27.0 L MCV 88.8 MCH 28.0 MCHC 31.5 RDW 13.8 Plt Count 241 D MPV 11.8 Immature Gran % (Auto) Cancelled Neut % (Auto) Cancelled Lymph % (Auto) Cancelled [place] % (Auto) Cancelled Eos % (Auto) Cancelled Baso % (Auto) Cancelled Lymph # (Auto) Cancelled [place] # (Auto) Cancelled Eos # (Auto) Cancelled Baso # (Auto) Cancelled Abs Immat Gran (auto) Cancelled Absolute Neuts (auto) Cancelled Absolute Nucleated RBC 0.020 H Nucleated RBC % (auto) 0.1 Neutrophils % (Manual) 77 H Band Neutrophils % 0 L Lymphocytes % (Manual) 12 L Monocytes % (Manual) 10 Metamyelocytes % 1 Abs Neuts (Manual) 17.9 H Lymphocytes # (Manual) 2.8 Monocytes # (Manual) 2.3 H Metamyelocytes # 0.2 Platelet Estimate NORMAL Plt Morphology Comment NORMAL RBC Morphology NORMAL Microcytosis 1+ Sodium 138 Potassium 3.6 Chloride 109 H Carbon Dioxide 15 L Anion Gap 18 BUN 11 Creatinine 1.12 Estim Creat Clear Calc 53.8 Estimated GFR 49 POC Glucose 139 H Random Glucose 165 H D Calcium 7.8 L 06/30/20 06/30/20 08:03 11:24 WBC RBC Hgb Hct MCV MCH MCHC RDW Plt Count MPV Immature Gran % (Auto) Neut % (Auto) Lymph % (Auto) [place] % (Auto) Eos % (Auto) Baso % (Auto) Lymph # (Auto) [place] # (Auto) Eos # (Auto) Baso # (Auto) Abs Immat Gran (auto) Absolute Neuts (auto) Absolute Nucleated RBC Nucleated RBC % (auto) Neutrophils % (Manual) Band Neutrophils % Lymphocytes % (Manual) Monocytes % (Manual) Metamyelocytes % Abs Neuts (Manual) Lymphocytes # (Manual) Monocytes # (Manual) Metamyelocytes # Platelet Estimate Plt Morphology Comment RBC Morphology Microcytosis Sodium Potassium Chloride Carbon Dioxide Anion Gap BUN Creatinine Estim Creat Clear Calc Estimated GFR POC Glucose 196 H 197 H Random Glucose Calcium Progress Note: A&P Assessment and plan (1) Acute osteomyelitis of metatarsal bone of left foot: Status: Acute (2) Gram-positive bacteremia: Status: Acute (3) PAF (paroxysmal atrial fibrillation): Status: Acute Assessment and Plan: 65-year-old female with osteomyelitis of metatarsal bone of left foot, bacteremia and AFib with RVR. She has been feeling lousy and sick and the has been nauseous today. She has been in AFib with RVR since yesterday. She has no appetite. I think underlying issue is sepsis and osteomyelitis. If she is unable to tolerate oral then the Cardizem should be changed to a drip and her oral Cardizem should be held. Please treat her nausea. She had discussion with surgery before about surgical debridement/transmetatarsal amputation. May requ alvaro a rediscussion with surgery because she is not improving. Thank you for allowing me to participate in the care of your patient. Please feel free to contact me if you have any questions. Fall Risk Details Current Medications: Current Medications Generic Name Dose Route Start Last Admin Trade Name Freq PRN Reason Stop Dose Admin Acetaminophen 650 mg 06/20/20 06:39 06/30/20 03:55 Acetaminophen 325 Mg Tablet PO 650 mg Q6H PRN Administration Pain, Mild (Pain Scale 1-3) Amlodipine Besylate 10 mg 06/20/20 09:00 06/30/20 08:37 Amlodipine Besylate 10 Mg Tablet PO 10 mg DAILY [facility] Administration Protocol Aspirin 81 mg 06/23/20 21:00 06/29/20 21:03 Aspirin Enteric Coated 81 Mg Tablet. PO 81 mg BEDTIME [facility] Administration Atorvastatin Calcium 10 mg 06/20/20 21:00 06/29/20 21:03 Atorvastatin Calcium 10 Mg Tablet PO 10 mg BEDTIME [facility] Administration Diltiazem HCl 240 mg 06/29/20 09:00 06/30/20 08:37 Diltiazem Hcl Cd 120 Mg Cap.Er.Deg PO 240 mg DAILY [facility] Administration Protocol Docusate Sodium 100 mg 06/20/20 06:39 Docusate Sodium 100 Mg Capsule PO DAILY PRN Constipation Docusate Sodium 100 mg 06/24/20 21:00 06/30/20 08:34 Docusate Sodium 100 Mg Capsule PO Not Given BID [facility] Duloxetine HCl 60 mg 06/20/20 09:00 06/30/20 08:35 Duloxetine Hcl 60 Mg Capsule. PO 60 mg DAILY [facility] Administration Enoxaparin Sodium 80 mg 06/24/20 09:00 06/30/20 08:31 Enoxaparin Sodium 100 Mg/Ml Syringe SUBCUT 80 mg Q12H [facility] Administration Sodium Chloride 1,000 mls @ 100 mls/hr 06/28/20 16:15 06/30/20 08:43 Ns IVCONT 100 mls/hr .Q10H [facility] Administration Ceftriaxone Sodium 1 gm/ 50 mls @ 100 mls/hr 06/29/20 18:00 06/29/20 19:18 Sodium Chloride IV Infused Q24H [facility] Infusion Insulin Glargine 20 unit 06/29/20 21:00 06/29/20 21:04 Insulin Glargine,Hum.Rec.Anlog 100 Unit/Ml 10 Ml Vial SUBCUT Not Given BEDTIME [facility] Insulin Human Lispro 0 unit 06/20/20 07:30 06/30/20 08:30 Insulin Lispro 100 Unit/Ml 3 Ml Vial SUBCUT 2 unit QIDACHS [facility] Administration Protocol Levothyroxine Sodium 75 mcg 06/24/20 06:00 06/30/20 08:35 Levothyroxine Sodium 75 Mcg Tablet PO 75 mcg DAILY@0600 [facility] Administration Losartan Potassium 50 mg 06/20/20 09:00 06/30/20 08:35 Losartan Potassium 50 Mg Tablet PO 50 mg DAILY [facility] Administration Protocol Metoprolol Succinate 50 mg 06/20/20 09:00 06/30/20 08:37 Metoprolol Succinate Er 50 Mg Tab.Er.24h PO 50 mg DAILY [facility] Administration Protocol Omeprazole 20 mg 06/20/20 07:30 06/30/20 08:36 Omeprazole 20 Mg Capsule. PO 20 mg DAILY@0630 [facility] Administration Ondansetron HCl 4 mg 06/20/20 06:39 06/30/20 05:40 Ondansetron Hcl 4 Mg/2 Ml Vial IVPUSH 4 mg Q8H PRN Administration Nausea and Vomiting Pharmacy Consult 1 each 06/20/20 03:31 Consult Rx Perform Med Rec MISCELLANE ONCE PRN Consult order Pharmacy Consult 1 each 06/28/20 16:02 Consult Rx Vancomycin Dosing MISCELLANE DAILY PRN Consult order Polyethylene Glycol 17 gm 06/25/20 10:25 06/30/20 08:35 Polyethylene Glycol 3350 17 Gm Powd.Pack PO Not Given DAILY [facility] Risperidone 0.25 mg 06/22/20 21:00 06/29/20 21:03 Risperidone 0.25 Mg Tablet PO 0.25 mg BEDTIME [facility] Administration Sodium Bicarbonate 650 mg 06/30/20 09:00 06/30/20 08:35 Sodium Bicarbonate 650 Mg Tablet PO 650 mg BID [facility] Administration Sodium Chloride 3 ml 06/20/20 08:00 06/30/20 08:38 0.9 % Sodium Chloride Flush 3 Ml Syringe IVFLUSH Not Given QSHIFT [facility] Trazodone HCl 50 mg 06/20/20 06:43 06/29/20 21:03 Trazodone Hcl 50 Mg Tablet PO 50 mg BEDTIME PRN Administration insomnia Time Spent With Patient Time: Total time spent is greater than 50% in coordination of care (as documented) at patient's floor/unit and/or counseling patient: Time with patient: less than 15 minutes
--- NOTE | 2020-06-30 13:31 | HO.PM.IMPN ---
Subjective Subjective Date of Service: 06/30/20 Interval History: Patient seen and examined at bedside patient reported nausea and vomiting, became more tachycardic Systemic review: Reports generalized weakness No chest pain, Mild shortness of breath and coughing reported nausea and vomiting No urinary symptoms No any rash or wounds Review of Systems Short of breath Physical Exam Vital Signs: Vital Signs: Last Vital Signs Temp 97.6 F 06/30/20 11:21 Pulse 129 H 06/30/20 11:21 Resp 18 06/30/20 11:21 BP 181/79 H 06/30/20 11:21 Pulse Ox 94 06/30/20 11:21 Body Mass Index 30.6 Const: General: cooperative and no acute distress Eyes: General: appearance normal, both eyes and all related structures Pupils: Equal, round and reactive pupils present Resp: Effort & Inspection: normal respiratory effort and able to speak in complete sentences Auscultation: clear to auscultation bilaterally Cardio: Rate: regular rate Rhythm: regular rhythm GI: Palpation (GI): Soft to palpation Auscultation: normal bowel sounds Skin: General skin exam: no rashes or lesions noted Neuro: Cranial nerves: Yes Equal, round and reactive pupils present Cognition (Neuro): normal cognition Extrem: General: Yes no pedal edema Objective Data Current Medications Generic Name Dose Route Start Last Admin Trade Name Freq PRN Reason Stop Dose Admin Acetaminophen 650 mg 06/20/20 06:39 06/30/20 03:55 Acetaminophen 325 Mg Tablet PO 650 mg Q6H PRN Administration Pain, Mild (Pain Scale 1-3) Amlodipine Besylate 10 mg 06/20/20 09:00 06/30/20 08:37 Amlodipine Besylate 10 Mg Tablet PO 10 mg DAILY [facility] Administration Protocol Aspirin 81 mg 06/23/20 21:00 06/29/20 21:03 Aspirin Enteric Coated 81 Mg Tablet.Dr PO 81 mg BEDTIME [facility] Administration Atorvastatin Calcium 10 mg 06/20/20 21:00 06/29/20 21:03 Atorvastatin Calcium 10 Mg Tablet PO 10 mg BEDTIME [facility] Administration Diltiazem HCl 240 mg 06/29/20 09:00 06/30/20 08:37 Diltiazem Hcl Cd 120 Mg Cap.Er.Deg PO 240 mg DAILY [facility] Administration Protocol Docusate Sodium 100 mg 06/20/20 06:39 Docusate Sodium 100 Mg Capsule PO DAILY PRN Constipation Docusate Sodium 100 mg 06/24/20 21:00 06/30/20 08:34 Docusate Sodium 100 Mg Capsule PO Not Given BID [facility] Duloxetine HCl 60 mg 06/20/20 09:00 06/30/20 08:35 Duloxetine Hcl 60 Mg Capsule. PO 60 mg DAILY [facility] Administration Enoxaparin Sodium 80 mg 06/24/20 09:00 06/30/20 08:31 Enoxaparin Sodium 100 Mg/Ml Syringe SUBCUT 80 mg Q12H [facility] Administration Sodium Chloride 1,000 mls @ 100 mls/hr 06/28/20 16:15 06/30/20 08:43 Ns IVCONT 100 mls/hr .Q10H [facility] Administration Ceftriaxone Sodium 1 gm/ 50 mls @ 100 mls/hr 06/29/20 18:00 06/29/20 19:18 Sodium Chloride IV Infused Q24H [facility] Infusion Insulin Glargine 20 unit 06/29/20 21:00 06/29/20 21:04 Insulin Glargine,Hum.Rec.Anlog 100 Unit/Ml 10 Ml Vial SUBCUT Not Given BEDTIME [facility] Insulin Human Lispro 0 unit 06/20/20 07:30 06/30/20 11:57 Insulin Lispro 100 Unit/Ml 3 Ml Vial SUBCUT Not Given QIDACHS [facility] Protocol Levothyroxine Sodium 75 mcg 06/24/20 06:00 06/30/20 08:35 Levothyroxine Sodium 75 Mcg Tablet PO 75 mcg DAILY@0600 [facility] Administration Losartan Potassium 50 mg 06/20/20 09:00 06/30/20 08:35 Losartan Potassium 50 Mg Tablet PO 50 mg DAILY [facility] Administration Protocol Metoprolol Succinate 50 mg 06/20/20 09:00 06/30/20 08:37 Metoprolol Succinate Er 50 Mg Tab.Er.24h PO 50 mg DAILY [facility] Administration Protocol Omeprazole 20 mg 06/20/20 07:30 06/30/20 08:36 Omeprazole 20 Mg Capsule. PO 20 mg DAILY@0630 [facility] Administration Ondansetron HCl 4 mg 06/20/20 06:39 06/30/20 05:40 Ondansetron Hcl 4 Mg/2 Ml Vial IVPUSH 4 mg Q8H PRN Administration Nausea and Vomiting Pharmacy Consult 1 each 06/20/20 03:31 Consult Rx Perform Med Rec MISCELLANE ONCE PRN Consult order Pharmacy Consult 1 each 06/28/20 16:02 Consult Rx Vancomycin Dosing MISCELLANE DAILY PRN Consult order Polyethylene Glycol 17 gm 06/25/20 10:25 06/30/20 08:35 Polyethylene Glycol 3350 17 Gm Powd.Pack PO Not Given DAILY [facility] Risperidone 0.25 mg 06/22/20 21:00 06/29/20 21:03 Risperidone 0.25 Mg Tablet PO 0.25 mg BEDTIME [facility] Administration Sodium Bicarbonate 650 mg 06/30/20 09:00 06/30/20 08:35 Sodium Bicarbonate 650 Mg Tablet PO 650 mg BID [facility] Administration Sodium Chloride 3 ml 06/20/20 08:00 06/30/20 08:38 0.9 % Sodium Chloride Flush 3 Ml Syringe IVFLUSH Not Given QSHIFT [facility] Trazodone HCl 50 mg 06/20/20 06:43 06/29/20 21:03 Trazodone Hcl 50 Mg Tablet PO 50 mg BEDTIME PRN Administration insomnia Labs CBC & Chem 7: 06/30/20 06:06 06/30/20 06:06 Microbiology Microbiology Results: Microbiology 06/28/20 20:21 Blood - Venous Blood Culture - Preliminary No growth after 24 hours. 06/28/20 20:14 Blood - Venous Blood Culture - Preliminary No growth after 24 hours. 06/24/20 15:31 Blood - Venous Blood Culture - Final No growth after 5 days. 06/24/20 15:31 Blood - Venous Blood Culture - Final No growth after 5 days. 06/23/20 07:37 Blood - Venous Blood Culture - Final Streptococcus intermedius 06/23/20 07:37 Blood - Venous Blood Culture - Final Streptococcus intermedius Assessment and Plan (1) Sepsis: Status: Acute (2) Leukemoid reaction: Status: Acute (3) PAF (paroxysmal atrial fibrillation): Status: Acute (4) Gram-positive bacteremia: Status: Acute (5) Osteomyelitis of great toe of left foot: Status: Acute (6) Rhabdomyolysis: Status: Acute (7) FELIX (acute kidney injury): Status: Acute Assessment and Plan: This is a 65-year-old female with past medical history as mentioned above who presents to the hospital with complaints of frequent falls. Found to have rhabdomyolysis, FELIX. admitted for further management. Sepsis likely secondary to infected foot ulcer and osteomyelitis leukocytosis initially improved but again worsening spiked fever on 12/18 reporting nausea and vomiting today Blood cultures growing Streptococcus intermidus Repeat blood cultures preliminary negative Source likely from osteomyelitis in left toe Respiratory panel negative UA on admission was normal will recheck UA and will check cdiff given some diarrhea received Vanco and Zosyn for 6 days switched to Rocephin per ID on continue IV Rocephin continue IV fluids repeat blood culture pending Id input appreciated, recommended continue Vanco and Zosyn surgery consulted recommended vascular surgery evaluation but patient wants to follow-up with his on vascular surgeon Dr. Jeronimo at [facility] patient refusing surgery currently and wants to continue IV antibiotic will get MRI foot New onset atrial fibrillation with RVR became more tachycardic today Likely secondary to sepsis continue lovenox Will stop p.o. Cardizem given nausea and vomiting Will start on IV Cardizem Echo showing low normal EF with no wall motion abnormality Cardiology input appreciated, Hypomagnesemia Magnesium improved to 2 after replacement hypokalemia replaced monitor potassium Lactic acidosis Resolved Secondary to infection Elevated D-dimer D-dimer elevated around 1999 Likely secondary to sepsis, kidney injury venous Doppler negative for DVT FELIX, resolved secondary to rhabdomyolysis Monitor intake and output Monitor BMP Nausea and vomiting Use Zofran as needed Microcytic anemia Patient reports having anemia before but she cannot remember the exact numbers, no baseline for comparison Hemoglobin of stable between 8-9 has normal MCV, denies melena or bright red blood per rectum Low iron level and saturation Normal ferritin level, B12, folic acid No bleeding identified follow CBC Multiple falls No evidence of syncope CT head negative for any acute findings likely multifactorial, diabetic neuropathy, postural hypotension, physical deconditioning Neurology input appreciated PT evaluation Hyperglycemia secondary to diabetes mellitus hold metformin Continue lantus and low-dose sliding scale insulin diabetic diet hypertension continue amlodipine, losartan, hypothyroidism continue levothyroxine DVT prophylaxis Lovenox
--- NOTE | 2020-06-30 13:59 | PM.PNGS ---
Subjective Subjective Date of Service: 06/30/20 Interval history: called to reevaluate pt with osteomyelitis she has had a hx of a chronic non healing ulcer for a year admitted Jun 20 for a fall; was noted to have FELIX also, ulcer on plantar/medial left foot - xray c/w osteomyelitis of metatarsal head persistent leukocytosis, nausea - deemed to be from osteo has no other source is identified pt denies severe pain on left foot Physical Exam Vital Signs: Vital Signs: Last Vital Signs Temp 97.6 F 06/30/20 11:21 Pulse 129 H 06/30/20 11:21 Resp 18 06/30/20 11:21 BP 181/79 H 06/30/20 11:21 Pulse Ox 94 06/30/20 11:21 Body Mass Index 30.6 Chemistry 06/28/20 06/29/20 06/29/20 05:23 06:23 13:35 Sodium 135 138 Potassium 3.2 L 2.9 L 3.9 D Carbon Dioxide 18 L 21 L BUN 19 H 15 Creatinine 1.15 1.07 Calcium 7.7 L 7.9 L 06/30/20 06:06 Sodium 138 Potassium 3.6 Carbon Dioxide 15 L BUN 11 Creatinine 1.12 Calcium 7.8 L Hematology 06/28/20 06/29/20 06/30/20 05:23 06:23 06:06 WBC 23.8 H 25.2 H 23.2 H Hgb 8.5 L 9.4 L 8.5 L Plt Count 442 H 407 H 241 D Const: General: comfortable and no acute distress Cardio: Rate: tachycardic GI: Palpation (GI): Soft to palpation and nontender Extrem: Other: 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 Satnos -vascular in Aug 2020 I explained to her infection may worsen will also discuss with her pt's HCP - sister Marcia [phone] hospitalist Fall Risk Details Current Medications: Current Medications Generic Name Dose Route Start Last Admin Trade Name Freq PRN Reason Stop Dose Admin Acetaminophen 650 mg 06/20/20 06:39 06/30/20 03:55 Acetaminophen 325 Mg Tablet PO 650 mg Q6H PRN Administration Pain, Mild (Pain Scale 1-3) Amlodipine Besylate 10 mg 06/20/20 09:00 06/30/20 08:37 Amlodipine Besylate 10 Mg Tablet PO 10 mg DAILY [facility] Administration Protocol Aspirin 81 mg 06/23/20 21:00 06/29/20 21:03 Aspirin Enteric Coated 81 Mg Tablet. PO 81 mg BEDTIME [facility] Administration Atorvastatin Calcium 10 mg 06/20/20 21:00 06/29/20 21:03 Atorvastatin Calcium 10 Mg Tablet PO 10 mg BEDTIME [facility] Administration Docusate Sodium 100 mg 06/20/20 06:39 Docusate Sodium 100 Mg Capsule PO DAILY PRN Constipation Docusate Sodium 100 mg 06/24/20 21:00 06/30/20 08:34 Docusate Sodium 100 Mg Capsule PO Not Given BID [facility] Duloxetine HCl 60 mg 06/20/20 09:00 06/30/20 08:35 Duloxetine Hcl 60 Mg Capsule. PO 60 mg DAILY [facility] Administration Enoxaparin Sodium 80 mg 06/24/20 09:00 06/30/20 08:31 Enoxaparin Sodium 100 Mg/Ml Syringe SUBCUT 80 mg Q12H [facility] Administration Sodium Chloride 1,000 mls @ 100 mls/hr 06/28/20 16:15 06/30/20 08:43 Ns IVCONT 100 mls/hr .Q10H [facility] Administration Ceftriaxone Sodium 1 gm/ 50 mls @ 100 mls/hr 06/29/20 18:00 06/29/20 19:18 Sodium Chloride IV Infused Q24H [facility] Infusion Diltiazem HCl 125 mg/ Sodium 125 mls @ 0 mls/hr 06/30/20 13:45 Chloride IVCONT .Q0M [facility] Protocol Per Protocol Insulin Glargine 20 unit 06/29/20 21:00 06/29/20 21:04 Insulin Glargine,Hum.Rec.Anlog 100 Unit/Ml 10 Ml Vial SUBCUT Not Given BEDTIME [facility] Insulin Human Lispro 0 unit 06/20/20 07:30 06/30/20 11:57 Insulin Lispro 100 Unit/Ml 3 Ml Vial SUBCUT Not Given QIDACHS [facility] Protocol Levothyroxine Sodium 75 mcg 06/24/20 06:00 06/30/20 08:35 Levothyroxine Sodium 75 Mcg Tablet PO 75 mcg DAILY@0600 [facility] Administration Losartan Potassium 50 mg 06/20/20 09:00 06/30/20 08:35 Losartan Potassium 50 Mg Tablet PO 50 mg DAILY [facility] Administration Protocol Omeprazole 20 mg 06/20/20 07:30 06/30/20 08:36 Omeprazole 20 Mg Capsule.Dr PO 20 mg DAILY@0630 [facility] Administration Ondansetron HCl 4 mg 06/20/20 06:39 06/30/20 05:40 Ondansetron Hcl 4 Mg/2 Ml Vial IVPUSH 4 mg Q8H PRN Administration Nausea and Vomiting Pharmacy Consult 1 each 06/20/20 03:31 Consult Rx Perform Med Rec MISCELLANE ONCE PRN Consult order Pharmacy Consult 1 each 06/28/20 16:02 Consult Rx Vancomycin Dosing MISCELLANE DAILY PRN Consult order Polyethylene Glycol 17 gm 06/25/20 10:25 06/30/20 08:35 Polyethylene Glycol 3350 17 Gm Powd.Pack PO Not Given DAILY [facility] Risperidone 0.25 mg 06/22/20 21:00 06/29/20 21:03 Risperidone 0.25 Mg Tablet PO 0.25 mg BEDTIME [facility] Administration Sodium Bicarbonate 650 mg 06/30/20 09:00 06/30/20 08:35 Sodium Bicarbonate 650 Mg Tablet PO 650 mg BID [facility] Administration Sodium Chloride 3 ml 06/20/20 08:00 06/30/20 08:38 0.9 % Sodium Chloride Flush 3 Ml Syringe IVFLUSH Not Given QSHIFT [facility] Trazodone HCl 50 mg 06/20/20 06:43 06/29/20 21:03 Trazodone Hcl 50 Mg Tablet PO 50 mg BEDTIME PRN Administration insomnia Time Spent With Patient Time: Total time spent is greater than 50% in coordination of care (as documented) at patient's floor/unit and/or counseling patient: Time with patient: 15 - 24 minutes
[2020-06-30 14:49] LABS: Alanine Aminotransferase 18 U/L (0-31); Albumin Level 2.8 g/dL (3.5-5.0); Alkaline Phosphatase 98 U/L (39-117); Aspartate Amino Transferase 22 U/L (5-31); Bilirubin Direct < 0.2 mg/dL (0.0-0.5); Bilirubin Total 0.2 mg/dL (0.0-1.0); Total Protein 6.2 g/dL (6.5-8.0)
[2020-06-30] MEDS: dilTIAZem HCL 125 MG in 0.9 % Sodium Chloride 100 ML 10 MG IVCONT (15:54)
[2020-06-30 16:58] LABS: Glucose, Whole Blood 197 mg/dL (60-115)
[2020-06-30 17:17] LABS: Vancomycin Random 8.2 mcg/mL (15-20)
[2020-06-30] MEDS: cefTRIAXone sodium 1 GM in 0.9 % Sodium Chloride 50 ML IV (17:23)
[2020-06-30] MEDS: Aspirin Enteric Coated 81 MG TABLET.DR PO (20:25)
[2020-06-30] MEDS: Atorvastatin Calcium 10 MG TABLET PO (20:25)
[2020-06-30 21:13] LABS: Glucose, Whole Blood 167 mg/dL (60-115)
[2020-06-30] MEDS: risperiDONE 0.25 MG TABLET PO (21:44)
[2020-07-01] VITALS (10 sets, daily range): BP systolic 126–159; BP diastolic 61–84; PULSE 72–110; RESP 18–20; TEMP 36–37.1; O2SAT 93–98
[2020-07-01] MEDS: dilTIAZem HCL 125 MG in 0.9 % Sodium Chloride 100 ML IVCONT (01:00)
[2020-07-01 05:13] LABS: Hematocrit 25.4 % (37-47); Mean Corpuscular HGB Conc 31.5 g/dl (31.0-35.0); Mean Corpuscular Hemoglobin 28.4 pg (27.0-33.0); Mean Corpuscular Volume 90.1 fL (80-98); Mean Platelet Volume 10.7 fL (9.4-12.3); Platelet Count 297 X10*3/uL (160-400); Red Blood Count 2.82 X10*6/uL (4.20-5.50); Red Cell Distribution Width 14.2 % (11.0-16.0); White Blood Count 16.1 X10*3/uL (4.8-10.8)
[2020-07-01 05:29] LABS: Eosinophils Absolute Manual 0.3 X10*3/UL (0.0-0.8); Eosinophils Percent Manual 2 % (0-4); Lymphocytes Absolute Manual 2.3 X10*3/uL (0.6-4.8); Lymphocytes Percent Manual 14 % (20-40); Metamyelocytes Absolute 0.5 X10*3/uL; Metamyelocytes Percent 3 %; Monocytes Absolute Manual 1.1 X10*3/uL (0.0-1.2); Monocytes Percent Manual 7 % (2-11); Myelocytes Absolute 0.2 X10*/uL; Myelocytes Percent 1 %; Neutrophils Percent Manual 73 % (45-73)
[2020-07-01 05:30] LABS: Band Neutrophils Percent 0 % (3-5); Neutrophils Absolute Manual 11.8 X10*3/uL (2.2-7.9)
[2020-07-01 05:32] LABS: Platelet Estimate NORMAL (NORMAL); Platelet Morphology Comment NORMAL; RBC Morphology NORMAL
[2020-07-01 05:33] LABS: Anion Gap 15 (12-20); Blood Urea Nitrogen 10 mg/dL (9-16); Calcium 7.4 mg/dL (8.4-10.2); Carbon Dioxide 16 mmol/L (22-29); Chloride 109 mmol/L (96-108); Creatinine Clr Calc Pharmacy 63.4; Estimated Glomerular Filt Rate 59; Glucose Random 153 mg/dL (60-115); Potassium 3.6 mmol/l (3.3-5.1); Sodium 136 mmol/L (135-145)
[2020-07-01 07:52] LABS: Glucose, Whole Blood 160 mg/dL (60-115)
[2020-07-01] MEDS: amLODIPine Besylate 10 MG TABLET PO (08:06)
[2020-07-01] MEDS: DULoxetine HCl 60 MG CAPSULE.DR PO (08:06)
[2020-07-01] MEDS: Sodium Bicarbonate 650 MG TABLET PO ×2 (08:06→21:51)
[2020-07-01] MEDS: Losartan Potassium 50 MG TABLET PO (08:07)
[2020-07-01] MEDS: Enoxaparin Sodium 100 MG/ML SYRINGE 80 MG SUBCUT ×2 (08:08→21:51)
--- NOTE | 2020-07-01 10:49 | P.PNGS_ITS ---
Subjective Subjective Date of Service: 07/02/20 Interval history: no new complaints says she feels well occasional tachycardia over the weekend Physical Exam Vital Signs: Vital Signs: Last Vital Signs Temp 97.3 F 07/01/20 08:00 Pulse 82 07/01/20 08:42 Resp 18 07/01/20 08:00 BP 158/84 H 07/01/20 08:42 Pulse Ox 95 07/01/20 08:00 Body Mass Index 30.6 Const: General: comfortable and no acute distress GI: Palpation (GI): Soft to palpation, nontender and no guarding Extrem: Other: left foot - ulcer on plantar/medial forefoot, scanty drainage, about 2.8 cm diameter, no cellulitis or necrosis Progress Note: A&P Assessment and plan (1) Acute osteomyelitis of metatarsal bone of left foot: Status: Acute Assessment and Plan: ulcer has been nonhealing had persistent leukocytosis with no other identifiabkle etiology exept for osteomyelitis I was therefore asked by Hospitalist javed amputation in view of this pt ststed that she did not want any amputation untl she sees her [facility] Surgeon in August I had a long talk with her sister Marcia over the phone yesterday Pt now says she is willing to do it she wants to discuss this with Dr. Georges however, currently looks well, not septic looking Fall Risk Details Current Medications: Current Medications Generic Name Dose Route Start Last Admin Trade Name Freq PRN Reason Stop Dose Admin Acetaminophen 650 mg 06/20/20 06:39 06/30/20 20:32 Acetaminophen 325 Mg Tablet PO 650 mg Q6H PRN Administration Pain, Mild (Pain Scale 1-3) Amlodipine Besylate 10 mg 06/20/20 09:00 07/01/20 08:06 Amlodipine Besylate 10 Mg Tablet PO 10 mg DAILY [facility] Administration Protocol Aspirin 81 mg 06/23/20 21:00 06/30/20 20:25 Aspirin Enteric Coated 81 Mg Tablet. PO 81 mg BEDTIME [facility] Administration Atorvastatin Calcium 10 mg 06/20/20 21:00 06/30/20 20:25 Atorvastatin Calcium 10 Mg Tablet PO 10 mg BEDTIME [facility] Administration Benzocaine 1 lozenge 06/30/20 13:58 Throat Lozenge, Medicated Lozenge MUCOUS MEM Q2H PRN Sore Throat Docusate Sodium 100 mg 06/20/20 06:39 Docusate Sodium 100 Mg Capsule PO DAILY PRN Constipation Docusate Sodium 100 mg 06/24/20 21:00 07/01/20 08:07 Docusate Sodium 100 Mg Capsule PO Not Given BID [facility] Duloxetine HCl 60 mg 06/20/20 09:00 07/01/20 08:06 Duloxetine Hcl 60 Mg Capsule. PO 60 mg DAILY [facility] Administration Enoxaparin Sodium 80 mg 06/24/20 09:00 07/01/20 08:08 Enoxaparin Sodium 100 Mg/Ml Syringe SUBCUT 80 mg Q12H [facility] Administration Sodium Chloride 1,000 mls @ 100 mls/hr 06/28/20 16:15 07/01/20 08:10 Ns IVCONT Infused .Q10H [facility] Infusion Ceftriaxone Sodium 1 gm/ 50 mls @ 100 mls/hr 06/29/20 18:00 06/30/20 18:24 Sodium Chloride IV Infused Q24H [facility] Infusion Diltiazem HCl 125 mg/ Sodium 125 mls @ 0 mls/hr 06/30/20 13:45 07/01/20 01:00 Chloride IVCONT 5 mg/hr .Q0M [facility] 5 mls/hr Administration Protocol Per Protocol Insulin Glargine 20 unit 06/29/20 21:00 06/30/20 21:47 Insulin Glargine,Hum.Rec.Anlog 100 Unit/Ml 10 Ml Vial SUBCUT Not Given BEDTIME [facility] Insulin Human Lispro 0 unit 06/20/20 07:30 07/01/20 08:05 Insulin Lispro 100 Unit/Ml 3 Ml Vial SUBCUT Not Given QIDACHS [facility] Protocol Levothyroxine Sodium 75 mcg 06/24/20 06:00 06/30/20 08:35 Levothyroxine Sodium 75 Mcg Tablet PO 75 mcg DAILY@0600 [facility] Administration Losartan Potassium 50 mg 06/20/20 09:00 07/01/20 08:07 Losartan Potassium 50 Mg Tablet PO 50 mg DAILY [facility] Administration Protocol Omeprazole 20 mg 06/20/20 07:30 06/30/20 08:36 Omeprazole 20 Mg Capsule. PO 20 mg DAILY@0630 [facility] Administration Ondansetron HCl 4 mg 06/20/20 06:39 06/30/20 15:56 Ondansetron Hcl 4 Mg/2 Ml Vial IVPUSH 4 mg Q8H PRN Administration Nausea and Vomiting Pharmacy Consult 1 each 06/20/20 03:31 Consult Rx Perform Med Rec MISCELLANE ONCE PRN Consult order Pharmacy Consult 1 each 06/28/20 16:02 Consult Rx Vancomycin Dosing MISCELLANE DAILY PRN Consult order Polyethylene Glycol 17 gm 06/25/20 10:25 07/01/20 08:07 Polyethylene Glycol 3350 17 Gm Powd.Pack PO Not Given DAILY [facility] Risperidone 0.25 mg 06/22/20 21:00 06/30/20 21:44 Risperidone 0.25 Mg Tablet PO 0.25 mg BEDTIME [facility] Administration Sodium Bicarbonate 650 mg 06/30/20 09:00 07/01/20 08:06 Sodium Bicarbonate 650 Mg Tablet PO 650 mg BID [facility] Administration Sodium Chloride 3 ml 06/20/20 08:00 07/01/20 08:05 0.9 % Sodium Chloride Flush 3 Ml Syringe IVFLUSH Not Given QSHIFT [facility] Trazodone HCl 50 mg 06/20/20 06:43 06/29/20 21:03 Trazodone Hcl 50 Mg Tablet PO 50 mg BEDTIME PRN Administration insomnia Time Spent With Patient Time: Total time spent is greater than 50% in coordination of care (as documented) at patient's floor/unit and/or counseling patient: Time with patient: 15 - 24 minutes
[2020-07-01 10:59] LABS: Glucose, Whole Blood 224 mg/dL (60-115)
[2020-07-01] MEDS: Insulin Lispro 100 UNIT/ML 3 ML VIAL SUBCUT ×3 (11:23→21:51)
[2020-07-01] MEDS: Acetaminophen 325 MG TABLET 650 MG PO (11:25)
--- NOTE | 2020-07-01 11:31 | MHC.CM.PN ---
Patient continues on IV Vanco and IV Ceftriaxone for osteomyelitis of grt toe. Patient has also been changed back to IV Cardizem gtt for better control of HR. Plan now is surgery for amputation of grt toe. Discharge plan is hopeful for D/C to [facility] when medically stable. CM will continue to follow patient for discharge needs.
--- NOTE | 2020-07-01 13:50 | PM.PNCARD ---
Subjective Subjective Date of Service: 07/01/20 <ALFIE Briseno - Last Filed: 07/01/20 16:30> 07/01/20 <Jeremias Laird MD - Last Filed: 07/01/20 18:07> Principal diagnosis: Afib <ALFIE Briseno - Last Filed: 07/01/20 16:30> Interval history: cardiology follow up for Afib. Seen at 1300. Today she reports she is feeling much better than yesterday. No longer having nausea. Denies chest pains, palpitations. She does reports having some sob this admit that is not normal for her. She has intermittent cough. Reports having HESHAM but does not wear mask. She has been sleeping here with HOB elevated. Denies PND. Denies leg / foot pains. <ALFIE Briseno - Last Filed: 07/01/20 16:30> Review of Systems Review of Systems as above <ALFIE Briseno - Last Filed: 07/01/20 16:30> Yes all other systems are reviewed and are negative <ALFIE Briseno - Last Filed: 07/01/20 16:30> Physical Exam Vital Signs: Last Vital Signs Temp 97.1 F 07/01/20 11:24 Pulse 94 07/01/20 11:24 Resp 20 07/01/20 11:24 BP 159/80 H 07/01/20 11:24 Pulse Ox 95 07/01/20 11:24 Body Mass Index 30.6 <ALFIE Briseno - Last Filed: 07/01/20 16:30> Const General: cooperative, no acute distress, alert and awake <ALFIE Briseno - Last Filed: 07/01/20 16:30> Orientation/consciousness: patient oriented x3 <ALFIE Briseno - Last Filed: 07/01/20 16:30> HENMT Head: Yes normal to inspection <ALFIE Briseno - Last Filed: 07/01/20 16:30> Neck Neck: Yes normal visual inspection and Yes no JVD <ALFIE Briseno - Last Filed: 07/01/20 16:30> Resp Effort & Inspection: normal respiratory effort, able to speak in complete sentences and not labored <Valerie Cedric [employer]OOKING SUPERVISOR-C - Last Filed: 07/01/20 16:30> Auscultation: clear to auscultation bilaterally (coarse clear bilaterally, no distinct rales), no crackles, no rales and no wheezes <[facility] - Last Filed: 07/01/20 16:30> Cardio Heart sounds: S1 normal heart sound present and S2 normal heart sound present [facility] - Last Filed: 07/01/20 16:30> Peripheral pulses: Peripheral pulses 2+ throughout <[facility] - Last Filed: 07/01/20 16:30> GI Inspection: Yes normal to inspection [facility] - Last Filed: 07/01/20 16:30> Neuro General: patient oriented x3 [facility] - Last Filed: 07/01/20 16:30> Extrem Other: wound dressing to right heal and to left medial metatarsal region. <[facility] - Last Filed: 07/01/20 16:30> General: Yes normal to inspection and No edema <[facility] [employer]ING SUPERVISOR-C - Last Filed: 07/01/20 16:30> Results Labs and Meds Result diagrams: : 07/01/20 04:51 07/01/20 04:51 <[facility] Cedric [facility] - Last Filed: 07/01/20 16:30> Lab results: Laboratory Results - last 24 hr 06/30/20 06/30/20 06/30/20 06:06 16:02 16:52 WBC RBC Hgb Hct MCV MCH MCHC RDW Plt Count MPV Immature Gran % (Auto) Neut % (Auto) Lymph % (Auto) [place] % (Auto) Eos % (Auto) Baso % (Auto) Lymph # (Auto) [place] # (Auto) Eos # (Auto) Baso # (Auto) Abs Immat Gran (auto) Absolute Neuts (auto) Absolute Nucleated RBC Nucleated RBC % (auto) Neutrophils % (Manual) Band Neutrophils % Lymphocytes % (Manual) Monocytes % (Manual) Eosinophils % (Manual) Metamyelocytes % Myelocytes % Abs Neuts (Manual) Lymphocytes # (Manual) Monocytes # (Manual) Eosinophils # (Manual) Metamyelocytes # Myelocytes # Platelet Estimate Plt Morphology Comment RBC Morphology Sodium Potassium Chloride Carbon Dioxide Anion Gap BUN Creatinine Estim Creat Clear Calc Estimated GFR POC Glucose 197 H Random Glucose Calcium Total Bilirubin 0.2 Direct Bilirubin < 0.2 AST 22 ALT 18 Alkaline Phosphatase 98 Total Protein 6.2 L Albumin 2.8 L Random Vancomycin 8.2 L 06/30/20 07/01/20 07/01/20 21:08 04:51 04:51 WBC 16.1 H RBC 2.82 L Hgb 8.0 L Hct 25.4 L MCV 90.1 MCH 28.4 MCHC 31.5 RDW 14.2 Plt Count 297 MPV 10.7 Immature Gran % (Auto) Cancelled Neut % (Auto) Cancelled Lymph % (Auto) Cancelled [place]anan % (Auto) Cancelled Eos % (Auto) Cancelled Baso % (Auto) Cancelled Lymph # (Auto) Cancelled [place]anan # (Auto) Cancelled Eos # (Auto) Cancelled Baso # (Auto) Cancelled Abs Immat Gran (auto) Cancelled Absolute Neuts (auto) Cancelled Absolute Nucleated RBC 0.000 Nucleated RBC % (auto) 0.0 Neutrophils % (Manual) 73 Band Neutrophils % 0 L Lymphocytes % (Manual) 14 L Monocytes % (Manual) 7 Eosinophils % (Manual) 2 Metamyelocytes % 3 Myelocytes % 1 Abs Neuts (Manual) 11.8 H Lymphocytes # (Manual) 2.3 Monocytes # (Manual) 1.1 Eosinophils # (Manual) 0.3 Metamyelocytes # 0.5 Myelocytes # 0.2 Platelet Estimate NORMAL Plt Morphology Comment NORMAL RBC Morphology NORMAL Sodium 136 Potassium 3.6 Chloride 109 H Carbon Dioxide 16 L Anion Gap 15 BUN 10 Creatinine 0.95 Estim Creat Clear Calc 63.4 Estimated GFR 59 POC Glucose 167 H Random Glucose 153 H Calcium 7.4 L Total Bilirubin Direct Bilirubin AST ALT Alkaline Phosphatase Total Protein Albumin Random Vancomycin 07/01/20 07/01/20 07:48 10:56 WBC RBC Hgb Hct MCV MCH MCHC RDW Plt Count MPV Immature Gran % (Auto) Neut % (Auto) Lymph % (Auto) [place]anan % (Auto) Eos % (Auto) Baso % (Auto) Lymph # (Auto) [place]anan # (Auto) Eos # (Auto) Baso # (Auto) Abs Immat Gran (auto) Absolute Neuts (auto) Absolute Nucleated RBC Nucleated RBC % (auto) Neutrophils % (Manual) Band Neutrophils % Lymphocytes % (Manual) Monocytes % (Manual) Eosinophils % (Manual) Metamyelocytes % Myelocytes % Abs Neuts (Manual) Lymphocytes # (Manual) Monocytes # (Manual) Eosinophils # (Manual) Metamyelocytes # Myelocytes # Platelet Estimate Plt Morphology Comment RBC Morphology Sodium Potassium Chloride Carbon Dioxide Anion Gap BUN Creatinine Estim Creat Clear Calc Estimated GFR POC Glucose 160 H 224 H Random Glucose Calcium Total Bilirubin Direct Bilirubin AST ALT Alkaline Phosphatase Total Protein Albumin Random Vancomycin <Valerie Steele NP-C - Last Filed: 07/01/20 16:30> Progress Note: A&P Assessment and plan (1) Atrial fibrillation: Status: Acute <Valerie Steele NP-C - Last Filed: 07/01/20 16:30> Assessment and Plan: Admit with fall, rhabdo. Found to have sepsis, bacteremia, osteomyolitis. EKG and Tele has been showing new afib RVR. Echo shows EF 50-55%, normal valves. Has been treated for afib rate control. Currently on Diltiazem drip at 5mg hr. On Lovenox for anticoagulation. May still need surgical intervention to left foot osteomyelitis. Had nausea yesterday, now resolved. Will restart Metoprolol xl 50mg daily. Wean Diltiazem drip to off. Continue Lovenox at present. If no plan for surgery/ or post operatively, plan to change to NOAC. Plan to start on Eliquis 5mg bid ( cr 0.95). Ongoing tele monitoring. We will sign off. We will arrange for outpt cardiology follow up after her discharge. <Valerie Steele, LUISA-C - Last Filed: 07/01/20 16:30> Patient seen and examined. Case discussed with Valerie Patient complains of shortness of breath at rest. No clear orthopnea PND. Denies any cough. No palpitations. Heart rate is better controlled. Lungs-diminished air entry Cardiac exam irregular S1-S2 Persistent atrial fibrillation setting of acute medical illness with acute osteomyelitis and bacteremia. Currently atrial fibrillation is rate controlled on IV Cardizem drip. Agree with switch to p.o. metoprolol, this could also lead to adequate rate control. Continue anticoagulation parenterally. Once ready from medical and surgical perspective can switch to direct oral anticoagulant therapy. Continue current care as per the hospitalist and surgical team. Will set up for outpatient follow-up to discuss rhythm control as outpatient. This was discussed with patient. She understands agrees. Sign of the case. Feel free to contact us for any further issues. <Jeremias Laird MD - Last Filed: 07/01/20 18:07> (2) Hypertension: Status: Acute <ALFIE Briseno - Last Filed: 07/01/20 16:30> Assessment and Plan: Elevated at 159/80. On usual home Amlodipine, Losartan. Off usual home Metoprolol. On Diltiazem drip. Will be restarting metoprolol as above. <ALFIE Briseno - Last Filed: 07/01/20 16:30> (3) Acute osteomyelitis of metatarsal bone of left foot: Status: Acute <ALFIE Briseno - Last Filed: 07/01/20 16:30> Assessment and Plan: Last 2 sets of blood cultures show no growth. Being followed by hospitalist and surgery. <ALFIE Briseno - Last Filed: 07/01/20 16:30> Fall Risk Details Current Medications: Current Medications Generic Name Dose Route Start Last Admin Trade Name Freq PRN Reason Stop Dose Admin Acetaminophen 650 mg 06/20/20 06:39 07/01/20 11:25 Acetaminophen 325 Mg Tablet PO 650 mg Q6H PRN Administration Pain, Mild (Pain Scale 1-3) Amlodipine Besylate 10 mg 06/20/20 09:00 07/01/20 08:06 Amlodipine Besylate 10 Mg Tablet PO 10 mg DAILY [facility] Administration Protocol Aspirin 81 mg 06/23/20 21:00 06/30/20 20:25 Aspirin Enteric Coated 81 Mg Tablet.Dr PO 81 mg BEDTIME [facility] Administration Atorvastatin Calcium 10 mg 06/20/20 21:00 06/30/20 20:25 Atorvastatin Calcium 10 Mg Tablet PO 10 mg BEDTIME [facility] Administration Benzocaine 1 lozenge 06/30/20 13:58 Throat Lozenge, Medicated Lozenge MUCOUS MEM Q2H PRN Sore Throat Docusate Sodium 100 mg 06/20/20 06:39 Docusate Sodium 100 Mg Capsule PO DAILY PRN Constipation Docusate Sodium 100 mg 06/24/20 21:00 07/01/20 08:07 Docusate Sodium 100 Mg Capsule PO Not Given BID [facility] Duloxetine HCl 60 mg 06/20/20 09:00 07/01/20 08:06 Duloxetine Hcl 60 Mg Capsule. PO 60 mg DAILY [facility] Administration Enoxaparin Sodium 80 mg 06/24/20 09:00 07/01/20 08:08 Enoxaparin Sodium 100 Mg/Ml Syringe SUBCUT 80 mg Q12H [facility] Administration Ceftriaxone Sodium 1 gm/ 50 mls @ 100 mls/hr 06/29/20 18:00 06/30/20 18:24 Sodium Chloride IV Infused Q24H [facility] Infusion Diltiazem HCl 125 mg/ Sodium 125 mls @ 0 mls/hr 06/30/20 13:45 07/01/20 01:00 Chloride IVCONT 5 mg/hr .Q0M [facility] 5 mls/hr Administration Protocol Per Protocol Insulin Glargine 20 unit 06/29/20 21:00 06/30/20 21:47 Insulin Glargine,Hum.Rec.Anlog 100 Unit/Ml 10 Ml Vial SUBCUT Not Given BEDTIME [facility] Insulin Human Lispro 0 unit 06/20/20 07:30 07/01/20 11:23 Insulin Lispro 100 Unit/Ml 3 Ml Vial SUBCUT 4 unit QIDACHS [facility] Administration Protocol Levothyroxine Sodium 75 mcg 06/24/20 06:00 06/30/20 08:35 Levothyroxine Sodium 75 Mcg Tablet PO 75 mcg DAILY@0600 [facility] Administration Losartan Potassium 50 mg 06/20/20 09:00 07/01/20 08:07 Losartan Potassium 50 Mg Tablet PO 50 mg DAILY [facility] Administration Protocol Omeprazole 20 mg 06/20/20 07:30 06/30/20 08:36 Omeprazole 20 Mg Capsule. PO 20 mg DAILY@0630 [facility] Administration Ondansetron HCl 4 mg 06/20/20 06:39 06/30/20 15:56 Ondansetron Hcl 4 Mg/2 Ml Vial IVPUSH 4 mg Q8H PRN Administration Nausea and Vomiting Pharmacy Consult 1 each 06/20/20 03:31 Consult Rx Perform Med Rec MISCELLANE ONCE PRN Consult order Pharmacy Consult 1 each 06/28/20 16:02 Consult Rx Vancomycin Dosing MISCELLANE DAILY PRN Consult order Polyethylene Glycol 17 gm 06/25/20 10:25 07/01/20 08:07 Polyethylene Glycol 3350 17 Gm Powd.Pack PO Not Given DAILY [facility] Risperidone 0.25 mg 06/22/20 21:00 06/30/20 21:44 Risperidone 0.25 Mg Tablet PO 0.25 mg BEDTIME [facility] Administration Sodium Bicarbonate 650 mg 06/30/20 09:00 07/01/20 08:06 Sodium Bicarbonate 650 Mg Tablet PO 650 mg BID [facility] Administration Sodium Chloride 3 ml 06/20/20 08:00 07/01/20 08:05 0.9 % Sodium Chloride Flush 3 Ml Syringe IVFLUSH Not Given QSHIFT [facility] Trazodone HCl 50 mg 06/20/20 06:43 06/29/20 21:03 Trazodone Hcl 50 Mg Tablet PO 50 mg BEDTIME PRN Administration insomnia <ALFIE Briseno - Last Filed: 07/01/20 16:30> Time Spent With Patient Time: Total time spent is greater than 50% in coordination of care (as documented) at patient's floor/unit and/or counseling patient: <ALFIE Briseno - Last Filed: 07/01/20 16:30> Time with patient: 15 - 24 minutes <ALFIE Briseno - Last Filed: 07/01/20 16:30>
--- NOTE | 2020-07-01 14:16 | MHC.CLN ---
F/U PO 75/100 TODAY DIET RX: 1800 DM-APPROPRIATE PT ALSO RECEIVING GLUCERNA BID TO INCREASE KCALS FOLLOWING
[2020-07-01 16:02] LABS: Glucose, Whole Blood 324 mg/dL (60-115)
[2020-07-01] MEDS: Docusate Sodium 100 MG CAPSULE PO ×2 (16:28→21:51)
[2020-07-01] MEDS: cefTRIAXone sodium 1 GM in 0.9 % Sodium Chloride 50 ML IV (16:28)
[2020-07-01] MEDS: 0.9 % Sodium Chloride Flush 3 ML SYRINGE IVFLUSH (16:28)
[2020-07-01] MEDS: Metoprolol Succinate ER 50 MG TAB.ER.24H PO (16:48)
[2020-07-01 19:32] LABS: Glucose, Whole Blood 264 mg/dL (60-115)
--- NOTE | 2020-07-01 20:02 | P.PNIM_ITS ---
Subjective Subjective Date of Service: 07/02/20 Interval History: afib with rvr, foot infection Review of Systems Patient denies chest pain or abdominal pain or fever or chills, has mild foot pain Physical Exam Vital Signs: Vital Signs: Last Vital Signs Temp 97.5 F 07/01/20 19:09 Pulse 100 07/01/20 19:09 Resp 19 07/01/20 19:09 BP 150/77 H 07/01/20 19:09 Pulse Ox 98 07/01/20 19:09 Body Mass Index 30.6 Physical exam: Cvs: rrr, [id number] , no murmur res: clear to auscultation ,no rhonchii or wheezing abd: no rebound or guarding ,nt, bs present. ext pulses present , no cyanosis Left foot heel and right foot big toe area ulcer? No significant discharge or erythema noted neuro: axo3 , nonfocal. Objective Data Current Medications Generic Name Dose Route Start Last Admin Trade Name Freq PRN Reason Stop Dose Admin Acetaminophen 650 mg 06/20/20 06:39 07/01/20 11:25 Acetaminophen 325 Mg Tablet PO 650 mg Q6H PRN Administration Pain, Mild (Pain Scale 1-3) Amlodipine Besylate 10 mg 06/20/20 09:00 07/01/20 08:06 Amlodipine Besylate 10 Mg Tablet PO 10 mg DAILY [facility] Administration Protocol Aspirin 81 mg 06/23/20 21:00 06/30/20 20:25 Aspirin Enteric Coated 81 Mg Tablet. PO 81 mg BEDTIME [facility] Administration Atorvastatin Calcium 10 mg 06/20/20 21:00 06/30/20 20:25 Atorvastatin Calcium 10 Mg Tablet PO 10 mg BEDTIME [facility] Administration Benzocaine 1 lozenge 06/30/20 13:58 Throat Lozenge, Medicated Lozenge MUCOUS MEM Q2H PRN Sore Throat Docusate Sodium 100 mg 06/20/20 06:39 Docusate Sodium 100 Mg Capsule PO DAILY PRN Constipation Docusate Sodium 100 mg 06/24/20 21:00 07/01/20 16:28 Docusate Sodium 100 Mg Capsule PO 100 mg BID [facility] Administration Duloxetine HCl 60 mg 06/20/20 09:00 07/01/20 08:06 Duloxetine Hcl 60 Mg Capsule. PO 60 mg DAILY [facility] Administration Enoxaparin Sodium 80 mg 06/24/20 09:00 07/01/20 08:08 Enoxaparin Sodium 100 Mg/Ml Syringe SUBCUT 80 mg Q12H [facility] Administration Ceftriaxone Sodium 1 gm/ 50 mls @ 100 mls/hr 06/29/20 18:00 07/01/20 17:21 Sodium Chloride IV Infused Q24H [facility] Infusion Diltiazem HCl 125 mg/ Sodium 125 mls @ 0 mls/hr 06/30/20 13:45 07/01/20 01:00 Chloride IVCONT 5 mg/hr .Q0M [facility] 5 mls/hr Administration Protocol Per Protocol Insulin Glargine 20 unit 06/29/20 21:00 06/30/20 21:47 Insulin Glargine,Hum.Rec.Anlog 100 Unit/Ml 10 Ml Vial SUBCUT Not Given BEDTIME [facility] Insulin Human Lispro 0 unit 06/20/20 07:30 07/01/20 16:24 Insulin Lispro 100 Unit/Ml 3 Ml Vial SUBCUT 8 unit QIDACHS [facility] Administration Protocol Levothyroxine Sodium 75 mcg 06/24/20 06:00 06/30/20 08:35 Levothyroxine Sodium 75 Mcg Tablet PO 75 mcg DAILY@0600 [facility] Administration Losartan Potassium 50 mg 06/20/20 09:00 07/01/20 08:07 Losartan Potassium 50 Mg Tablet PO 50 mg DAILY [facility] Administration Protocol Metoprolol Succinate 50 mg 07/01/20 16:45 07/01/20 16:48 Metoprolol Succinate Er 50 Mg Tab.Er.24h PO 50 mg DAILY [facility] Administration Protocol Omeprazole 20 mg 06/20/20 07:30 06/30/20 08:36 Omeprazole 20 Mg Capsule.Dr PO 20 mg DAILY@0630 [facility] Administration Ondansetron HCl 4 mg 06/20/20 06:39 06/30/20 15:56 Ondansetron Hcl 4 Mg/2 Ml Vial IVPUSH 4 mg Q8H PRN Administration Nausea and Vomiting Pharmacy Consult 1 each 06/20/20 03:31 Consult Rx Perform Med Rec MISCELLANE ONCE PRN Consult order Pharmacy Consult 1 each 06/28/20 16:02 Consult Rx Vancomycin Dosing MISCELLANE DAILY PRN Consult order Polyethylene Glycol 17 gm 06/25/20 10:25 07/01/20 08:07 Polyethylene Glycol 3350 17 Gm Powd.Pack PO Not Given DAILY [facility] Risperidone 0.25 mg 06/22/20 21:00 06/30/20 21:44 Risperidone 0.25 Mg Tablet PO 0.25 mg BEDTIME [facility] Administration Sodium Bicarbonate 650 mg 06/30/20 09:00 07/01/20 08:06 Sodium Bicarbonate 650 Mg Tablet PO 650 mg BID [facility] Administration Sodium Chloride 3 ml 06/20/20 08:00 07/01/20 16:28 0.9 % Sodium Chloride Flush 3 Ml Syringe IVFLUSH 3 ml QSHIFT [facility] Administration Trazodone HCl 50 mg 06/20/20 06:43 06/29/20 21:03 Trazodone Hcl 50 Mg Tablet PO 50 mg BEDTIME PRN Administration insomnia Labs CBC & Chem 7: 07/02/20 08:05 07/02/20 08:05 Microbiology Microbiology Results: Microbiology 06/28/20 20:21 Blood - Venous Blood Culture - Preliminary No growth after 48 hours. 06/28/20 20:14 Blood - Venous Blood Culture - Preliminary No growth after 48 hours. 06/24/20 15:31 Blood - Venous Blood Culture - Final No growth after 5 days. 06/24/20 15:31 Blood - Venous Blood Culture - Final No growth after 5 days. 06/23/20 07:37 Blood - Venous Blood Culture - Final Streptococcus intermedius 06/23/20 07:37 Blood - Venous Blood Culture - Final Streptococcus intermedius Assessment and Plan (1) Acute osteomyelitis of metatarsal bone of left foot: Status: Acute (2) Sepsis: Status: Acute (3) Leukemoid reaction: Status: Acute (4) PAF (paroxysmal atrial fibrillation): Status: Acute (5) Gram-positive bacteremia: Status: Acute (6) Osteomyelitis of great toe of left foot: Status: Acute (7) Rhabdomyolysis: Status: Acute (8) FELIX (acute kidney injury): Status: Acute Assessment and Plan: This is a 65-year-old female with past medical history as mentioned above who presents to the hospital with complaints of frequent falls. Found to have rhabdomyolysis, FELIX. admitted for further management. Sepsis likely secondary to infected foot ulcer and osteomyelitis leukocytosis initially improved but again worsening spiked fever on 06/28 reporting nausea and vomiting today Blood cultures growing Streptococcus intermidus Repeat blood cultures preliminary negative Source likely from osteomyelitis in left toe Respiratory panel negative UA on admission was normal will recheck UA and will check cdiff given some diarrhea received Vanco and Zosyn for 6 days switched to Rocephin per ID on continue IV Rocephin continue IV fluids repeat blood culture pending Id input appreciated, recommended continue Vanco and Zosyn surgery consulted recommended vascular surgery evaluation but patient wants to follow-up with his on vascular surgeon Dr. Jeronimo at [facility] patient refusing surgery currently and wants to continue IV antibiotic will get MRI foot New onset atrial fibrillation with RVR became more tachycardic today Likely secondary to sepsis continue lovenox Will start on IV Cardizem Echo showing low normal EF with no wall motion abnormality Cardiology foloowin Hypomagnesemia Magnesium improved to 2 after replacement hypokalemia replaced monitor potassium Lactic acidosis Resolved Secondary to infection Elevated D-dimer D-dimer elevated around 1999 Likely secondary to sepsis, kidney injury venous Doppler negative for DVT FELIX, resolved secondary to rhabdomyolysis Monitor intake and output Monitor BMP Microcytic anemia Patient reports having anemia before but she cannot remember the exact numbers, no baseline for comparison Hemoglobin of stable between 8-9 has normal MCV, denies melena or bright red blood per rectum Low iron level and saturation Normal ferritin level, B12, folic acid No bleeding identified follow CBC Multiple falls No evidence of syncope CT head negative for any acute findings likely multifactorial, diabetic neuropathy, postural hypotension, physical deconditioning Neurology input appreciated PT evaluation Hyperglycemia secondary to diabetes mellitus hold metformin Continue lantus and low-dose sliding scale insulin diabetic diet hypertension continue amlodipine, losartan, hypothyroidism continue levothyroxine DVT prophylaxis Lovenox
[2020-07-01] MEDS: Insulin Glargine,Hum.rec.anlog 100 UNIT/ML 10 ML VIAL 20 UNIT SUBCUT (21:50)
[2020-07-01] MEDS: Aspirin Enteric Coated 81 MG TABLET.DR PO (21:51)
[2020-07-01] MEDS: risperiDONE 0.25 MG TABLET PO (21:51)
[2020-07-01] MEDS: Atorvastatin Calcium 10 MG TABLET PO (21:51)
[2020-07-01] MEDS: traZODone HCL 50 MG TABLET PO (21:54)
[2020-07-01] MEDS: Throat Lozenge, Medicated LOZENGE 1 LOZENGE MUCOUS MEM (21:54)
[2020-07-02] VITALS (7 sets, daily range): BP systolic 139–168; BP diastolic 70–85; PULSE 80–104; RESP 18–20; TEMP 36.4–37; O2SAT 95–99
[2020-07-02] MEDS: dilTIAZem HCL 125 MG in 0.9 % Sodium Chloride 100 ML IVCONT ×2 (04:06→17:21)
[2020-07-02] MEDS: Throat Lozenge, Medicated LOZENGE 1 LOZENGE MUCOUS MEM ×3 (04:06→22:03)
[2020-07-02] MEDS: Levothyroxine Sodium 75 MCG TABLET PO (04:06)
[2020-07-02] MEDS: Omeprazole 20 MG CAPSULE.DR PO (05:55)
[2020-07-02 08:18] LABS: Glucose, Whole Blood 157 mg/dL (60-115)
[2020-07-02 08:38] LABS: Hematocrit 27.3 % (37-47); Hemoglobin 8.7 g/dl (12.0-16.0)
[2020-07-02 09:07] LABS: Anion Gap 13 (12-20); Blood Urea Nitrogen 11 mg/dL (9-16); Carbon Dioxide 21 mmol/L (22-29); Chloride 106 mmol/L (96-108); Creatinine Clr Calc Pharmacy 56.4; Estimated Glomerular Filt Rate 51; Glucose Random 142 mg/dL (60-115); Potassium 3.8 mmol/l (3.3-5.1); Sodium 136 mmol/L (135-145)
--- NOTE | 2020-07-02 09:14 | P.PNIM_ITS ---
Subjective Subjective Date of Service: 07/03/20 Interval History: Patient's slowly improving as per the patient feeling better denies any chest pain or shortness of breath or abdominal pain or fever or chills Review of Systems afib withrvr , foot infcetion. Physical Exam Vital Signs: Vital Signs: Last Vital Signs Temp 98.5 F 07/02/20 08:00 Pulse 102 H 07/02/20 08:00 Resp 18 07/02/20 08:00 BP 165/85 H 07/02/20 08:00 Pulse Ox 98 07/02/20 08:00 Body Mass Index 30.6 Objective Data Current Medications Generic Name Dose Route Start Last Admin Trade Name Freq PRN Reason Stop Dose Admin Acetaminophen 650 mg 06/20/20 06:39 07/01/20 11:25 Acetaminophen 325 Mg Tablet PO 650 mg Q6H PRN Administration Pain, Mild (Pain Scale 1-3) Amlodipine Besylate 10 mg 06/20/20 09:00 07/01/20 08:06 Amlodipine Besylate 10 Mg Tablet PO 10 mg DAILY [facility] Administration Protocol Aspirin 81 mg 06/23/20 21:00 07/01/20 21:51 Aspirin Enteric Coated 81 Mg Tablet. PO 81 mg BEDTIME [facility] Administration Atorvastatin Calcium 10 mg 06/20/20 21:00 07/01/20 21:51 Atorvastatin Calcium 10 Mg Tablet PO 10 mg BEDTIME [facility] Administration Benzocaine 1 lozenge 06/30/20 13:58 07/02/20 04:06 Throat Lozenge, Medicated Lozenge MUCOUS MEM 1 lozenge Q2H PRN Administration Sore Throat Docusate Sodium 100 mg 06/20/20 06:39 Docusate Sodium 100 Mg Capsule PO DAILY PRN Constipation Docusate Sodium 100 mg 06/24/20 21:00 07/01/20 21:51 Docusate Sodium 100 Mg Capsule PO 100 mg BID [facility] Administration Duloxetine HCl 60 mg 06/20/20 09:00 07/01/20 08:06 Duloxetine Hcl 60 Mg Capsule. PO 60 mg DAILY [facility] Administration Enoxaparin Sodium 80 mg 06/24/20 09:00 07/01/20 21:51 Enoxaparin Sodium 100 Mg/Ml Syringe SUBCUT 80 mg Q12H [facility] Administration Ceftriaxone Sodium 1 gm/ 50 mls @ 100 mls/hr 06/29/20 18:00 07/01/20 17:21 Sodium Chloride IV Infused Q24H [facility] Infusion Diltiazem HCl 125 mg/ Sodium 125 mls @ 0 mls/hr 06/30/20 13:45 07/02/20 09:03 Chloride IVCONT 10 mg/hr .Q0M [facility] 10 mls/hr Titration Protocol Per Protocol Insulin Glargine 20 unit 06/29/20 21:00 07/01/20 21:50 Insulin Glargine,Hum.Rec.Anlog 100 Unit/Ml 10 Ml Vial SUBCUT 20 unit BEDTIME [facility] Administration Insulin Human Lispro 0 unit 06/20/20 07:30 07/01/20 21:51 Insulin Lispro 100 Unit/Ml 3 Ml Vial SUBCUT 6 unit QIDACHS [facility] Administration Protocol Levothyroxine Sodium 75 mcg 06/24/20 06:00 07/02/20 04:06 Levothyroxine Sodium 75 Mcg Tablet PO 75 mcg DAILY@0600 [facility] Administration Losartan Potassium 50 mg 06/20/20 09:00 07/01/20 08:07 Losartan Potassium 50 Mg Tablet PO 50 mg DAILY [facility] Administration Protocol Metoprolol Succinate 50 mg 07/01/20 16:45 07/01/20 16:48 Metoprolol Succinate Er 50 Mg Tab.Er.24h PO 50 mg DAILY [facility] Administration Protocol Omeprazole 20 mg 06/20/20 07:30 07/02/20 05:55 Omeprazole 20 Mg Capsule.Dr PO 20 mg DAILY@0630 [facility] Administration Ondansetron HCl 4 mg 06/20/20 06:39 06/30/20 15:56 Ondansetron Hcl 4 Mg/2 Ml Vial IVPUSH 4 mg Q8H PRN Administration Nausea and Vomiting Pharmacy Consult 1 each 06/20/20 03:31 Consult Rx Perform Med Rec MISCELLANE ONCE PRN Consult order Pharmacy Consult 1 each 06/28/20 16:02 Consult Rx Vancomycin Dosing MISCELLANE DAILY PRN Consult order Polyethylene Glycol 17 gm 06/25/20 10:25 07/01/20 08:07 Polyethylene Glycol 3350 17 Gm Powd.Pack PO Not Given DAILY [facility] Risperidone 0.25 mg 06/22/20 21:00 07/01/20 21:51 Risperidone 0.25 Mg Tablet PO 0.25 mg BEDTIME [facility] Administration Sodium Bicarbonate 650 mg 06/30/20 09:00 07/01/20 21:51 Sodium Bicarbonate 650 Mg Tablet PO 650 mg BID [facility] Administration Sodium Chloride 3 ml 06/20/20 08:00 07/02/20 02:09 0.9 % Sodium Chloride Flush 3 Ml Syringe IVFLUSH Not Given QSHIFT [facility] Trazodone HCl 50 mg 06/20/20 06:43 07/01/20 21:54 Trazodone Hcl 50 Mg Tablet PO 50 mg BEDTIME PRN Administration insomnia Labs CBC & Chem 7: 07/03/20 08:40 07/03/20 08:40 Microbiology Microbiology Results: Microbiology 06/28/20 20:21 Blood - Venous Blood Culture - Preliminary No growth after 48 hours. 06/28/20 20:14 Blood - Venous Blood Culture - Preliminary No growth after 48 hours. 06/24/20 15:31 Blood - Venous Blood Culture - Final No growth after 5 days. 06/24/20 15:31 Blood - Venous Blood Culture - Final No growth after 5 days. 06/23/20 07:37 Blood - Venous Blood Culture - Final Streptococcus intermedius 06/23/20 07:37 Blood - Venous Blood Culture - Final Streptococcus intermedius Assessment and Plan (1) Acute osteomyelitis of metatarsal bone of left foot: Problem details: Plantar ulcer and osteomyelitis left 1st metatarsal head Status: Acute (2) Sepsis: Status: Acute (3) Leukemoid reaction: Status: Acute (4) PAF (paroxysmal atrial fibrillation): Status: Acute (5) Gram-positive bacteremia: Status: Acute (6) Osteomyelitis of great toe of left foot: Status: Acute (7) Rhabdomyolysis: Status: Acute (8) FELIX (acute kidney injury): Status: Acute Assessment and Plan: This is a 65-year-old female with past medical history as mentioned above who presents to the hospital with complaints of frequent falls. Found to have rhabdomyolysis, FELIX. admitted for further management. 1.Sepsis likely secondary to infected foot ulcer and osteomyelitis leukocytosis initially improved but again worsening spiked fever on 06/28 reporting nausea and vomiting today Blood cultures growing Streptococcus intermidus Repeat blood cultures preliminary negative Source likely from osteomyelitis in left toe Respiratory panel negative UA on admission was normal cdiff negative received Vanco and Zosyn for 6 days switched to Rocephin per ID on continue IV Rocephin repeat blood culture neg@48hrs surgery consulted recommended vascular surgery evaluation but patient wants to follow-up with his on vascular surgeon Dr. Jeronimo at [facility] Discussed with surgery and ID-currently not need of MRI. Surgery barton she is going to go for surgery today New onset atrial fibrillation with RVR Tech has tachycardia seems to be improved significantly, we will stop the and Cardizem drip Will continue home metoprolol dose. Echo showing low normal EF with no wall motion abnormality Cardiology following Hypomagnesemia Improved hypokalemia replaced monitor potassium Lactic acidosis Resolved Secondary to infection Elevated D-dimer D-dimer elevated around 1999 Likely secondary to sepsis, kidney injury venous Doppler negative for DVT FELIX, resolved secondary to rhabdomyolysis Monitor intake and output Monitor BMP Microcytic anemia Patient reports having anemia before but she cannot remember the exact numbers, no baseline for comparison Hemoglobin of stable between 8-9 has normal MCV, denies melena or bright red blood per rectum Low iron level and saturation Normal ferritin level, B12, folic acid Stool for occult blood negative on07/02/20. follow CBC Multiple falls No evidence of syncope CT head negative for any acute findings likely multifactorial, diabetic neuropathy, postural hypotension, physical deconditioning Neurology input appreciated PT evaluation Hyperglycemia secondary to diabetes mellitus hold metformin Continue lantus and low-dose sliding scale insulin diabetic diet hypertension continue amlodipine, losartan, hypothyroidism continue levothyroxine DVT prophylaxis Lovenox
[2020-07-02] MEDS: amLODIPine Besylate 10 MG TABLET PO (09:27)
[2020-07-02] MEDS: DULoxetine HCl 60 MG CAPSULE.DR PO (09:27)
[2020-07-02] MEDS: Losartan Potassium 50 MG TABLET PO (09:28)
[2020-07-02] MEDS: Metoprolol Succinate ER 50 MG TAB.ER.24H PO (09:28)
[2020-07-02] MEDS: Sodium Bicarbonate 650 MG TABLET PO (09:28)
[2020-07-02] MEDS: Insulin Lispro 100 UNIT/ML 3 ML VIAL SUBCUT ×3 (09:28→17:22)
[2020-07-02] MEDS: 0.9 % Sodium Chloride Flush 3 ML SYRINGE IVFLUSH ×3 (09:29→21:52)
[2020-07-02] MEDS: Acetaminophen 325 MG TABLET 650 MG PO ×2 (09:32→17:22)
[2020-07-02 11:18] LABS: Glucose, Whole Blood 233 mg/dL (60-115)
[2020-07-02 11:20] LABS: OBS Int Ctl Valid YES; OBS1 NEG (NEG)
[2020-07-02] MEDS: Enoxaparin Sodium 100 MG/ML SYRINGE 80 MG SUBCUT (12:18)
--- NOTE | 2020-07-02 14:07 | PM.PNGS ---
Subjective Subjective Date of Service: 07/02/20 Interval history: She reports that she is feeling better. She was out of bed to the chair today for a few hours. No complaints of pain. She is ready to proceed with amputation of the left 1st toe. Physical Exam Vital Signs: Vital Signs: Last Vital Signs Temp 97.7 F 07/02/20 11:03 Pulse 90 07/02/20 11:03 Resp 18 07/02/20 11:03 BP 143/73 H 07/02/20 11:03 Pulse Ox 99 07/02/20 11:03 Body Mass Index 30.6 Const: Other: Alert, in no apparent distress Extrem: Other: There is a clean open wound on the plantar aspect of the left 1st metatarsal head. Granulation tissue is present, but bone is exposed in the base of the wound. There is no erythema of the surrounding soft tissues, but there is significant loss of the skin and soft tissues over the plantar aspect of the left 1st metatarsal head. Dorsalis pedis pulse is palpable. 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 Options include continued local care without the expectation of resolution of the osteomyelitis. Because of the extensive loss of soft tissue, progression to healing S likely to be difficult. After thinking this over, she has decided that she wishes to proceed with amputation of the left 1st toe. We discussed potential difficulties with foot mechanics as the 1st toe is most important for balance. 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 She is interested in proceeding with the similar operation on the left. We discussed this and also the option of full transmetatarsal amputation. At this time, amputation of the left 1st toe only is planned. We discussed risks of nonhealing, ongoing or recurrent infection and bleeding. Surgery will be scheduled for tomorrow. Fall Risk Details Current Medications: Current Medications Generic Name Dose Route Start Last Admin Trade Name Freq PRN Reason Stop Dose Admin Acetaminophen 650 mg 06/20/20 06:39 07/02/20 09:32 Acetaminophen 325 Mg Tablet PO 650 mg Q6H PRN Administration Pain, Mild (Pain Scale 1-3) Amlodipine Besylate 10 mg 06/20/20 09:00 07/02/20 09:27 Amlodipine Besylate 10 Mg Tablet PO 10 mg DAILY [facility] Administration Protocol Aspirin 81 mg 06/23/20 21:00 07/01/20 21:51 Aspirin Enteric Coated 81 Mg Tablet.Dr PO 81 mg BEDTIME [facility] Administration Atorvastatin Calcium 10 mg 06/20/20 21:00 07/01/20 21:51 Atorvastatin Calcium 10 Mg Tablet PO 10 mg BEDTIME [facility] Administration Benzocaine 1 lozenge 06/30/20 13:58 07/02/20 09:32 Throat Lozenge, Medicated Lozenge MUCOUS MEM 1 lozenge Q2H PRN Administration Sore Throat Docusate Sodium 100 mg 06/20/20 06:39 Docusate Sodium 100 Mg Capsule PO DAILY PRN Constipation Docusate Sodium 100 mg 06/24/20 21:00 07/01/20 21:51 Docusate Sodium 100 Mg Capsule PO 100 mg BID [facility] Administration Duloxetine HCl 60 mg 06/20/20 09:00 07/02/20 09:27 Duloxetine Hcl 60 Mg Capsule. PO 60 mg DAILY [facility] Administration Enoxaparin Sodium 80 mg 06/24/20 09:00 07/02/20 12:18 Enoxaparin Sodium 100 Mg/Ml Syringe SUBCUT 80 mg Q12H [facility] Administration Ceftriaxone Sodium 1 gm/ 50 mls @ 100 mls/hr 06/29/20 18:00 07/01/20 17:21 Sodium Chloride IV Infused Q24H [facility] Infusion Diltiazem HCl 125 mg/ Sodium 125 mls @ 0 mls/hr 06/30/20 13:45 07/02/20 10:57 Chloride IVCONT 5 mg/hr .Q0M [facility] 5 mls/hr Titration Protocol Per Protocol Insulin Glargine 20 unit 06/29/20 21:00 07/01/20 21:50 Insulin Glargine,Hum.Rec.Anlog 100 Unit/Ml 10 Ml Vial SUBCUT 20 unit BEDTIME [facility] Administration Insulin Human Lispro 0 unit 06/20/20 07:30 07/02/20 12:19 Insulin Lispro 100 Unit/Ml 3 Ml Vial SUBCUT 4 unit QIDACHS [facility] Administration Protocol Levothyroxine Sodium 75 mcg 06/24/20 06:00 07/02/20 04:06 Levothyroxine Sodium 75 Mcg Tablet PO 75 mcg DAILY@0600 [facility] Administration Losartan Potassium 50 mg 06/20/20 09:00 07/02/20 09:28 Losartan Potassium 50 Mg Tablet PO 50 mg DAILY [facility] Administration Protocol Metoprolol Succinate 50 mg 07/01/20 16:45 07/02/20 09:28 Metoprolol Succinate Er 50 Mg Tab.Er.24h PO 50 mg DAILY [facility] Administration Protocol Omeprazole 20 mg 06/20/20 07:30 07/02/20 05:55 Omeprazole 20 Mg Capsule.Dr PO 20 mg DAILY@0630 [facility] Administration Ondansetron HCl 4 mg 06/20/20 06:39 06/30/20 15:56 Ondansetron Hcl 4 Mg/2 Ml Vial IVPUSH 4 mg Q8H PRN Administration Nausea and Vomiting Pharmacy Consult 1 each 06/20/20 03:31 Consult Rx Perform Med Rec MISCELLANE ONCE PRN Consult order Pharmacy Consult 1 each 06/28/20 16:02 Consult Rx Vancomycin Dosing MISCELLANE DAILY PRN Consult order Polyethylene Glycol 17 gm 06/25/20 10:25 07/02/20 09:33 Polyethylene Glycol 3350 17 Gm Powd.Pack PO Not Given DAILY [facility] Risperidone 0.25 mg 06/22/20 21:00 07/01/20 21:51 Risperidone 0.25 Mg Tablet PO 0.25 mg BEDTIME [facility] Administration Sodium Bicarbonate 650 mg 06/30/20 09:00 07/02/20 09:28 Sodium Bicarbonate 650 Mg Tablet PO 650 mg BID [facility] Administration Sodium Chloride 3 ml 06/20/20 08:00 07/02/20 09:29 0.9 % Sodium Chloride Flush 3 Ml Syringe IVFLUSH 3 ml QSHIFT [facility] Administration Trazodone HCl 50 mg 06/20/20 06:43 07/01/20 21:54 Trazodone Hcl 50 Mg Tablet PO 50 mg BEDTIME PRN Administration insomnia Time Spent With Patient Time: Total time spent is greater than 50% in coordination of care (as documented) at patient's floor/unit and/or counseling patient: Time with patient: 15 - 24 minutes
[2020-07-02 16:50] LABS: Glucose, Whole Blood 208 mg/dL (60-115)
[2020-07-02] MEDS: cefTRIAXone sodium 1 GM in 0.9 % Sodium Chloride 50 ML IV (17:21)
[2020-07-02 20:25] LABS: Glucose, Whole Blood 193 mg/dL (60-115)
[2020-07-02] MEDS: Aspirin Enteric Coated 81 MG TABLET.DR PO (21:52)
[2020-07-02] MEDS: Atorvastatin Calcium 10 MG TABLET PO (21:52)
[2020-07-03] VITALS (15 sets, daily range): BP systolic 97–180; BP diastolic 61–84; PULSE 78–105; RESP 16–20; TEMP 36.2–36.9; O2SAT 96–100; BMI 32.3
[2020-07-03] MEDS: Omeprazole 20 MG CAPSULE.DR PO (05:15)
[2020-07-03] MEDS: Acetaminophen 325 MG TABLET 650 MG PO ×2 (05:15→20:07)
[2020-07-03] MEDS: Levothyroxine Sodium 75 MCG TABLET PO (05:16)
[2020-07-03 07:53] LABS: Glucose, Whole Blood 222 mg/dL (60-115)
[2020-07-03] MEDS: Sodium Bicarbonate 650 MG TABLET PO ×2 (07:57→20:08)
[2020-07-03] MEDS: DULoxetine HCl 60 MG CAPSULE.DR PO (07:57)
[2020-07-03] MEDS: Metoprolol Succinate ER 50 MG TAB.ER.24H PO (07:58)
[2020-07-03] MEDS: Losartan Potassium 50 MG TABLET PO (07:59)
[2020-07-03] MEDS: amLODIPine Besylate 10 MG TABLET PO (07:59)
--- NOTE | 2020-07-03 08:56 | P.CONAN_ITS ---
[facility] Past Medical History Medical History Carcinoid tumor Diabetic foot ulcers Hypertension Hypothyroidism Leukemoid reaction Type 2 diabetes mellitus Social History Social History Household Members: None Housing: Apartment Do you presently have visiting nurse or other home services: Yes Smoking Status: Never smoker Second Hand Smoke Exposure: No Use of substances other than those prescribed or required for medical reasons: No Currently Displaying Signs/Symptoms of Drug Intoxication Withdrawal: No Have you been hit, kicked, punched, or otherwise hurt by someone within the past year? If so, by whom?: No Do you feel safe in your current relationship?: No Current Relationship Is there a partner from a previous relationship who is making you feel unsafe now?: No Are you made to feel afraid or neglected: No Advance Directives: No Advance Directives Information Provided: Yes Do you have thoughts of harming others: None Do you have a plan to hurt others: No Plan Recently lost weight without trying: No service: No Current occupational status: retired Meds Allergies Allergy/AdvReac Type Severity Reaction Status Date / Time chlorthalidone Allergy Unknown ACUTE Verified 06/20/20 11:43 [CHLORTHALIDONE] RENAL FAILURE Iodine and Iodide Containing Allergy Unknown UNKNOWN Verified 06/20/20 11:43 Produc [IODINE AND IODIDE CONTAINING PRODUC] levofloxacin [From LEVAQUIN] AdvReac Unknown NAUSEA & Verified 06/20/20 11:43 VOMITING Penicillins [PENICILLINS] AdvReac Unknown RASH Verified 06/20/20 11:43 Sulfa (Sulfonamide AdvReac Unknown RASH Verified 06/20/20 11:43 Antibiotics) [SULFA (SULFONAMIDE ANTIBIOTICS)] TAPE,PAPER Allergy Unknown UNKNOWN Uncoded 03/28/20 18:54 Home Medications Medication Instructions Recorded Confirmed Type amlodipine 1 tab PO DAILY 06/20/20 06/20/20 History aspirin 81 mg PO BEDTIME 06/20/20 06/20/20 History cholecalciferol (vitamin D3) 800 units PO DAILY 06/20/20 06/20/20 History cyanocobalamin (vitamin B-12) 500 mcg PO DAILY 06/20/20 06/20/20 History diclofenac sodium 2 g TOPICAL BID 06/20/20 06/20/20 History doxycycline hyclate 1 tab PO BID 06/20/20 06/20/20 History duloxetine 1 cap PO QAM 06/20/20 06/20/20 History furosemide 1 tab PO DAILY 06/20/20 06/20/20 History insulin glargine [Lantus Solostar 40 unit SUBCUT BEDTIME 06/20/20 06/20/20 History U-100 Insulin] levothyroxine 1 tab PO DAILY 06/20/20 06/20/20 History losartan 1 tab PO DAILY 06/20/20 06/20/20 History melatonin 2 tab PO BEDTIME 06/20/20 06/20/20 History metformin 2 tab PO BEDTIME 06/20/20 06/20/20 History metoprolol succinate 1 tab PO DAILY 06/20/20 06/20/20 History pantoprazole 1 tab PO DAILY 06/20/20 06/20/20 History risperidone [Risperdal] 0.25 mg PO BEDTIME 06/20/20 06/20/20 History simvastatin 1 tab PO BEDTIME 06/20/20 06/20/20 History trazodone 1 - 2 tab PO BEDTIME PRN 06/20/20 06/20/20 History Exam Exam Date and Time: July 03, 2020 0856 Height,Weight and Vital Signs: Height 5 ft 6 in Weight 30.6 kg Last Vital Signs Temp 98.1 F 07/03/20 08:50 Pulse 105 H 07/03/20 08:50 Resp 16 07/03/20 08:50 BP 171/70 H 07/03/20 08:50 Pulse Ox 99 07/03/20 08:50 Pertinent Lab Results Pertinent Lab Results: Laboratory Tests 06/19/20 06/19/20 06/19/20 21:47 21:47 21:47 WBC RBC Hgb Hct MCV MCH MCHC RDW Plt Count MPV Immature Gran % (Auto) Neut % (Auto) Lymph % (Auto) [place] % (Auto) Eos % (Auto) Baso % (Auto) Lymph # (Auto) [place] # (Auto) Eos # (Auto) Baso # (Auto) Abs Immat Gran (auto) Absolute Neuts (auto) Absolute Nucleated RBC Nucleated RBC % (auto) Neutrophils % (Manual) Band Neutrophils % Lymphocytes % (Manual) Atypical Lymphs % (Man) Monocytes % (Manual) Eosinophils % (Manual) Metamyelocytes % Myelocytes % Abs Neuts (Manual) Lymphocytes # (Manual) Atyp Lymphs # (Manual) Monocytes # (Manual) Eosinophils # (Manual) Metamyelocytes # Myelocytes # Platelet Estimate Plt Morphology Comment RBC Morphology Polychromasia Hypochromasia Microcytosis [place] Cells D-Dimer Sodium 129 L Potassium 4.0 Chloride 93 L Carbon Dioxide 24 Anion Gap 16 BUN 24 H Creatinine 1.30 Estim Creat Clear Calc 46.3 Estimated GFR 41 POC Glucose Random Glucose 307 H Lactic Acid Lactic Acid Fup @ 2Hr Lactic Acid Fup @ 4Hr Calcium 8.5 Magnesium 1.6 Iron TIBC % Saturation Unsat Iron Binding Ferritin Total Bilirubin 0.3 Direct Bilirubin < 0.2 AST 169 H ALT 67 H Alkaline Phosphatase 93 Lactate Dehydrogenase Total Creatine Kinase 9438 H Troponin I High Sens 54.3 H C-Reactive Protein B-Natriuretic Peptide Total Protein 7.1 Albumin 3.7 Vitamin B12 Folate TSH Urine Color Urine Appearance Urine pH Ur Specific [place] Urine Protein Urine Glucose (UA) Urine Ketones Urine Blood Urine Nitrite Ur Leukocyte Esterase Urine RBC Urine WBC Ur Squamous Epith Cells Urine Crystals Urine Bacteria Stool Occult Blood Vancomycin Trough Random Vancomycin SARS-CoV-2 (PCR) COVID-19 ([facility]) COVID-19 Clin Com 06/19/20 06/19/20 06/20/20 21:48 22:58 03:48 WBC 13.9 H RBC 2.98 L Hgb 8.6 L Hct 26.0 L MCV 87.2 MCH 28.9 MCHC 33.1 RDW 12.5 Plt Count 428 H MPV 9.9 Immature Gran % (Auto) 0.6 H Neut % (Auto) 78.9 H Lymph % (Auto) 9.1 L [place] % (Auto) 10.6 Eos % (Auto) 0.4 Baso % (Auto) 0.4 Lymph # (Auto) 1.3 [place] # (Auto) 1.5 H Eos # (Auto) 0.1 Baso # (Auto) 0.1 Abs Immat Gran (auto) 0.09 H Absolute Neuts (auto) 11.0 H Absolute Nucleated RBC 0.000 Nucleated RBC % (auto) 0.0 Neutrophils % (Manual) Band Neutrophils % Lymphocytes % (Manual) Atypical Lymphs % (Man) Monocytes % (Manual) Eosinophils % (Manual) Metamyelocytes % Myelocytes % Abs Neuts (Manual) Lymphocytes # (Manual) Atyp Lymphs # (Manual) Monocytes # (Manual) Eosinophils # (Manual) Metamyelocytes # Myelocytes # Platelet Estimate Plt Morphology Comment RBC Morphology Polychromasia Hypochromasia Microcytosis [place] Cells D-Dimer Sodium Potassium Chloride Carbon Dioxide Anion Gap BUN Creatinine Estim Creat Clear Calc Estimated GFR POC Glucose Random Glucose Lactic Acid Lactic Acid Fup @ 2Hr Lactic Acid Fup @ 4Hr Calcium Magnesium Iron TIBC % Saturation Unsat Iron Binding Ferritin Total Bilirubin Direct Bilirubin AST ALT Alkaline Phosphatase Lactate Dehydrogenase Total Creatine Kinase Troponin I High Sens C-Reactive Protein B-Natriuretic Peptide Total Protein Albumin Vitamin B12 Folate TSH Urine Color YELLOW Urine Appearance CLEAR Urine pH 5.5 Ur Specific [place] 1.020 Urine Protein 2+ H Urine Glucose (UA) 100 H Urine Ketones NEG Urine Blood 3+ H Urine Nitrite NEG Ur Leukocyte Esterase NEG Urine RBC 0-2 Urine WBC 0 Ur Squamous Epith Cells 1+ Urine Crystals Urine Bacteria 1+ Stool Occult Blood Vancomycin Trough Random Vancomycin SARS-CoV-2 (PCR) COVID-19 ([facility]) Negative COVID-19 Clin Com See Note 06/20/20 06/20/20 06/20/20 03:56 08:11 09:33 WBC RBC Hgb Hct MCV MCH MCHC RDW Plt Count MPV Immature Gran % (Auto) Neut % (Auto) Lymph % (Auto) [place] % (Auto) Eos % (Auto) Baso % (Auto) Lymph # (Auto) [place] # (Auto) Eos # (Auto) Baso # (Auto) Abs Immat Gran (auto) Absolute Neuts (auto) Absolute Nucleated RBC Nucleated RBC % (auto) Neutrophils % (Manual) Band Neutrophils % Lymphocytes % (Manual) Atypical Lymphs % (Man) Monocytes % (Manual) Eosinophils % (Manual) Metamyelocytes % Myelocytes % Abs Neuts (Manual) Lymphocytes # (Manual) Atyp Lymphs # (Manual) Monocytes # (Manual) Eosinophils # (Manual) Metamyelocytes # Myelocytes # Platelet Estimate Plt Morphology Comment RBC Morphology Polychromasia Hypochromasia Microcytosis [place] Cells D-Dimer Sodium 136 Potassium 4.1 Chloride 103 Carbon Dioxide 20 L Anion Gap 17 BUN 15 Creatinine 0.93 Estim Creat Clear Calc 64.8 Estimated GFR > 60 POC Glucose 248 H Random Glucose 275 H Lactic Acid Lactic Acid Fup @ 2Hr Lactic Acid Fup @ 4Hr Calcium 8.4 Magnesium Iron 18 L TIBC 246 % Saturation 7 L Unsat Iron Binding 228 Ferritin Total Bilirubin < 0.2 Direct Bilirubin < 0.2 AST 124 H ALT 56 H Alkaline Phosphatase 80 Lactate Dehydrogenase Total Creatine Kinase 5840 H D Troponin I High Sens 42.2 H C-Reactive Protein B-Natriuretic Peptide Total Protein 6.4 L Albumin 3.1 L Vitamin B12 Folate TSH Urine Color Urine Appearance Urine pH Ur Specific [place] Urine Protein Urine Glucose (UA) Urine Ketones Urine Blood Urine Nitrite Ur Leukocyte Esterase Urine RBC Urine WBC Ur Squamous Epith Cells Urine Crystals Urine Bacteria Stool Occult Blood Vancomycin Trough Random Vancomycin SARS-CoV-2 (PCR) COVID-19 ([facility]) COVID-19 Clin Com 06/20/20 06/20/20 06/20/20 09:33 09:33 10:57 WBC RBC Hgb Hct MCV MCH MCHC RDW Plt Count MPV Immature Gran % (Auto) Neut % (Auto) Lymph % (Auto) [place] % (Auto) Eos % (Auto) Baso % (Auto) Lymph # (Auto) [place] # (Auto) Eos # (Auto) Baso # (Auto) Abs Immat Gran (auto) Absolute Neuts (auto) Absolute Nucleated RBC Nucleated RBC % (auto) Neutrophils % (Manual) Band Neutrophils % Lymphocytes % (Manual) Atypical Lymphs % (Man) Monocytes % (Manual) Eosinophils % (Manual) Metamyelocytes % Myelocytes % Abs Neuts (Manual) Lymphocytes # (Manual) Atyp Lymphs # (Manual) Monocytes # (Manual) Eosinophils # (Manual) Metamyelocytes # Myelocytes # Platelet Estimate Plt Morphology Comment RBC Morphology Polychromasia Hypochromasia Microcytosis [place] Cells D-Dimer Sodium Cancelled Potassium Cancelled Chloride Cancelled Carbon Dioxide Cancelled Anion Gap Cancelled BUN Cancelled Creatinine Cancelled Estim Creat Clear Calc Cancelled Estimated GFR Cancelled POC Glucose 360 H* Random Glucose Cancelled Lactic Acid Lactic Acid Fup @ 2Hr Lactic Acid Fup @ 4Hr Calcium Cancelled Magnesium Iron TIBC % Saturation Unsat Iron Binding Ferritin 143 Total Bilirubin Direct Bilirubin AST ALT Alkaline Phosphatase Lactate Dehydrogenase Total Creatine Kinase Troponin I High Sens C-Reactive Protein B-Natriuretic Peptide Total Protein Albumin Vitamin B12 1317 H Folate 11.3 TSH Urine Color Urine Appearance Urine pH Ur Specific [place] Urine Protein Urine Glucose (UA) Urine Ketones Urine Blood Urine Nitrite Ur Leukocyte Esterase Urine RBC Urine WBC Ur Squamous Epith Cells Urine Crystals Urine Bacteria Stool Occult Blood Vancomycin Trough Random Vancomycin SARS-CoV-2 (PCR) COVID-19 ([facility]) COVID-19 Clin Com 06/20/20 06/20/20 06/20/20 16:25 20:11 20:44 WBC RBC Hgb Hct MCV MCH MCHC RDW Plt Count MPV Immature Gran % (Auto) Neut % (Auto) Lymph % (Auto) [place] % (Auto) Eos % (Auto) Baso % (Auto) Lymph # (Auto) [place] # (Auto) Eos # (Auto) Baso # (Auto) Abs Immat Gran (auto) Absolute Neuts (auto) Absolute Nucleated RBC Nucleated RBC % (auto) Neutrophils % (Manual) Band Neutrophils % Lymphocytes % (Manual) Atypical Lymphs % (Man) Monocytes % (Manual) Eosinophils % (Manual) Metamyelocytes % Myelocytes % Abs Neuts (Manual) Lymphocytes # (Manual) Atyp Lymphs # (Manual) Monocytes # (Manual) Eosinophils # (Manual) Metamyelocytes # Myelocytes # Platelet Estimate Plt Morphology Comment RBC Morphology Polychromasia Hypochromasia Microcytosis [place] Cells D-Dimer Sodium Potassium Chloride Carbon Dioxide Anion Gap BUN Creatinine Estim Creat Clear Calc Estimated GFR POC Glucose 205 H 197 H 203 H Random Glucose Lactic Acid Lactic Acid Fup @ 2Hr Lactic Acid Fup @ 4Hr Calcium Magnesium Iron TIBC % Saturation Unsat Iron Binding Ferritin Total Bilirubin Direct Bilirubin AST ALT Alkaline Phosphatase Lactate Dehydrogenase Total Creatine Kinase Troponin I High Sens C-Reactive Protein B-Natriuretic Peptide Total Protein Albumin Vitamin B12 Folate TSH Urine Color Urine Appearance Urine pH Ur Specific [place] Urine Protein Urine Glucose (UA) Urine Ketones Urine Blood Urine Nitrite Ur Leukocyte Esterase Urine RBC Urine WBC Ur Squamous Epith Cells Urine Crystals Urine Bacteria Stool Occult Blood Vancomycin Trough Random Vancomycin SARS-CoV-2 (PCR) COVID-19 ([facility]) COVID-19 Clin Com 06/21/20 06/21/20 06/21/20 04:40 04:40 04:40 WBC 11.1 H RBC 2.71 L Hgb 7.8 L Hct 23.9 L MCV 88.2 MCH 28.8 MCHC 32.6 RDW 12.4 Plt Count 387 MPV 9.5 Immature Gran % (Auto) 0.5 H Neut % (Auto) 71.3 Lymph % (Auto) 15.0 L [place] % (Auto) 10.7 Eos % (Auto) 2.0 Baso % (Auto) 0.5 Lymph # (Auto) 1.7 [place] # (Auto) 1.2 Eos # (Auto) 0.2 Baso # (Auto) 0.1 Abs Immat Gran (auto) 0.06 H Absolute Neuts (auto) 7.9 Absolute Nucleated RBC 0.000 Nucleated RBC % (auto) 0.0 Neutrophils % (Manual) Band Neutrophils % Lymphocytes % (Manual) Atypical Lymphs % (Man) Monocytes % (Manual) Eosinophils % (Manual) Metamyelocytes % Myelocytes % Abs Neuts (Manual) Lymphocytes # (Manual) Atyp Lymphs # (Manual) Monocytes # (Manual) Eosinophils # (Manual) Metamyelocytes # Myelocytes # Platelet Estimate Plt Morphology Comment RBC Morphology Polychromasia Hypochromasia Microcytosis [place] Cells D-Dimer Sodium 136 Potassium 3.8 Chloride 104 Carbon Dioxide 21 L Anion Gap 15 BUN 14 Creatinine 0.87 Estim Creat Clear Calc 69.3 Estimated GFR > 60 POC Glucose Random Glucose 170 H D Lactic Acid Lactic Acid Fup @ 2Hr Lactic Acid Fup @ 4Hr Calcium 8.3 L Magnesium Iron TIBC % Saturation Unsat Iron Binding Ferritin Total Bilirubin Direct Bilirubin AST ALT Alkaline Phosphatase Lactate Dehydrogenase Total Creatine Kinase 3231 H D Troponin I High Sens C-Reactive Protein B-Natriuretic Peptide Total Protein Albumin Vitamin B12 Folate TSH Urine Color Urine Appearance Urine pH Ur Specific [place] Urine Protein Urine Glucose (UA) Urine Ketones Urine Blood Urine Nitrite Ur Leukocyte Esterase Urine RBC Urine WBC Ur Squamous Epith Cells Urine Crystals Urine Bacteria Stool Occult Blood Vancomycin Trough Random Vancomycin SARS-CoV-2 (PCR) COVID-19 ([facility]) COVID-19 Clin Com 06/21/20 06/21/20 06/21/20 08:20 11:46 17:02 WBC RBC Hgb Hct MCV MCH MCHC RDW Plt Count MPV Immature Gran % (Auto) Neut % (Auto) Lymph % (Auto) [place] % (Auto) Eos % (Auto) Baso % (Auto) Lymph # (Auto) [place] # (Auto) Eos # (Auto) Baso # (Auto) Abs Immat Gran (auto) Absolute Neuts (auto) Absolute Nucleated RBC Nucleated RBC % (auto) Neutrophils % (Manual) Band Neutrophils % Lymphocytes % (Manual) Atypical Lymphs % (Man) Monocytes % (Manual) Eosinophils % (Manual) Metamyelocytes % Myelocytes % Abs Neuts (Manual) Lymphocytes # (Manual) Atyp Lymphs # (Manual) Monocytes # (Manual) Eosinophils # (Manual) Metamyelocytes # Myelocytes # Platelet Estimate Plt Morphology Comment RBC Morphology Polychromasia Hypochromasia Microcytosis [place] Cells D-Dimer Sodium Potassium Chloride Carbon Dioxide Anion Gap BUN Creatinine Estim Creat Clear Calc Estimated GFR POC Glucose 164 H 251 H 173 H Random Glucose Lactic Acid Lactic Acid Fup @ 2Hr Lactic Acid Fup @ 4Hr Calcium Magnesium Iron TIBC % Saturation Unsat Iron Binding Ferritin Total Bilirubin Direct Bilirubin AST ALT Alkaline Phosphatase Lactate Dehydrogenase Total Creatine Kinase Troponin I High Sens C-Reactive Protein B-Natriuretic Peptide Total Protein Albumin Vitamin B12 Folate TSH Urine Color Urine Appearance Urine pH Ur Specific [place] Urine Protein Urine Glucose (UA) Urine Ketones Urine Blood Urine Nitrite Ur Leukocyte Esterase Urine RBC Urine WBC Ur Squamous Epith Cells Urine Crystals Urine Bacteria Stool Occult Blood Vancomycin Trough Random Vancomycin SARS-CoV-2 (PCR) COVID-19 ([facility]) COVID-19 Clin Com 06/21/20 06/22/20 06/22/20 20:32 05:54 05:54 WBC 18.9 H RBC 3.18 L Hgb 9.1 L Hct 27.6 L MCV 86.8 MCH 28.6 MCHC 33.0 RDW 12.2 Plt Count 402 H MPV 10.6 Immature Gran % (Auto) Neut % (Auto) Lymph % (Auto) [place] % (Auto) Eos % (Auto) Baso % (Auto) Lymph # (Auto) [place] # (Auto) Eos # (Auto) Baso # (Auto) Abs Immat Gran (auto) Absolute Neuts (auto) Absolute Nucleated RBC 0.000 Nucleated RBC % (auto) 0.0 Neutrophils % (Manual) Band Neutrophils % Lymphocytes % (Manual) Atypical Lymphs % (Man) Monocytes % (Manual) Eosinophils % (Manual) Metamyelocytes % Myelocytes % Abs Neuts (Manual) Lymphocytes # (Manual) Atyp Lymphs # (Manual) Monocytes # (Manual) Eosinophils # (Manual) Metamyelocytes # Myelocytes # Platelet Estimate Plt Morphology Comment RBC Morphology Polychromasia Hypochromasia Microcytosis [place] Cells D-Dimer Sodium 133 L Potassium 3.9 Chloride 100 Carbon Dioxide 18 L Anion Gap 19 BUN 8 L Creatinine 0.79 Estim Creat Clear Calc 76.3 Estimated GFR > 60 POC Glucose 125 H Random Glucose 275 H D Lactic Acid Lactic Acid Fup @ 2Hr Lactic Acid Fup @ 4Hr Calcium 8.6 Magnesium Iron TIBC % Saturation Unsat Iron Binding Ferritin Total Bilirubin Direct Bilirubin AST ALT Alkaline Phosphatase Lactate Dehydrogenase Total Creatine Kinase 1414 H D Troponin I High Sens C-Reactive Protein B-Natriuretic Peptide Total Protein Albumin Vitamin B12 Folate TSH Urine Color Urine Appearance Urine pH Ur Specific [place] Urine Protein Urine Glucose (UA) Urine Ketones Urine Blood Urine Nitrite Ur Leukocyte Esterase Urine RBC Urine WBC Ur Squamous Epith Cells Urine Crystals Urine Bacteria Stool Occult Blood Vancomycin Trough Random Vancomycin SARS-CoV-2 (PCR) COVID-19 ([facility]) COVID-19 [employer] 06/22/20 06/22/20 06/22/20 05:58 08:04 10:55 WBC RBC Hgb Hct MCV MCH MCHC RDW Plt Count MPV Immature Gran % (Auto) Neut % (Auto) Lymph % (Auto) [place] % (Auto) Eos % (Auto) Baso % (Auto) Lymph # (Auto) [place] # (Auto) Eos # (Auto) Baso # (Auto) Abs Immat Gran (auto) Absolute Neuts (auto) Absolute Nucleated RBC Nucleated RBC % (auto) Neutrophils % (Manual) Band Neutrophils % Lymphocytes % (Manual) Atypical Lymphs % (Man) Monocytes % (Manual) Eosinophils % (Manual) Metamyelocytes % Myelocytes % Abs Neuts (Manual) Lymphocytes # (Manual) Atyp Lymphs # (Manual) Monocytes # (Manual) Eosinophils # (Manual) Metamyelocytes # Myelocytes # Platelet Estimate Plt Morphology Comment RBC Morphology Polychromasia Hypochromasia Microcytosis [place] Cells D-Dimer Sodium Potassium Chloride Carbon Dioxide Anion Gap BUN Creatinine Estim Creat Clear Calc Estimated GFR POC Glucose 266 H 300 H Random Glucose Lactic Acid Lactic Acid Fup @ 2Hr Lactic Acid Fup @ 4Hr Calcium Magnesium Iron TIBC % Saturation Unsat Iron Binding Ferritin Total Bilirubin Direct Bilirubin AST ALT Alkaline Phosphatase Lactate Dehydrogenase Total Creatine Kinase Troponin I High Sens C-Reactive Protein B-Natriuretic Peptide Total Protein Albumin Vitamin B12 Folate TSH Urine Color Urine Appearance Urine pH Ur Specific [place] Urine Protein Urine Glucose (UA) Urine Ketones Urine Blood Urine Nitrite Ur Leukocyte Esterase Urine RBC Urine WBC Ur Squamous Epith Cells Urine Crystals Urine Bacteria Stool Occult Blood Vancomycin Trough Random Vancomycin SARS-CoV-2 (PCR) Cancelled COVID-19 ([facility]) COVID-19 [employer] Com 06/22/20 06/22/20 06/22/20 11:35 13:25 17:03 WBC RBC Hgb Hct MCV MCH MCHC RDW Plt Count MPV Immature Gran % (Auto) Neut % (Auto) Lymph % (Auto) [place] % (Auto) Eos % (Auto) Baso % (Auto) Lymph # (Auto) [place] # (Auto) Eos # (Auto) Baso # (Auto) Abs Immat Gran (auto) Absolute Neuts (auto) Absolute Nucleated RBC Nucleated RBC % (auto) Neutrophils % (Manual) Band Neutrophils % Lymphocytes % (Manual) Atypical Lymphs % (Man) Monocytes % (Manual) Eosinophils % (Manual) Metamyelocytes % Myelocytes % Abs Neuts (Manual) Lymphocytes # (Manual) Atyp Lymphs # (Manual) Monocytes # (Manual) Eosinophils # (Manual) Metamyelocytes # Myelocytes # Platelet Estimate Plt Morphology Comment RBC Morphology Polychromasia Hypochromasia Microcytosis [place] Cells D-Dimer Sodium Potassium Chloride Carbon Dioxide Anion Gap BUN Creatinine Estim Creat Clear Calc Estimated GFR POC Glucose 275 H 244 H Random Glucose Lactic Acid Lactic Acid Fup @ 2Hr Lactic Acid Fup @ 4Hr Calcium Magnesium Iron TIBC % Saturation Unsat Iron Binding Ferritin Total Bilirubin Direct Bilirubin AST ALT Alkaline Phosphatase Lactate Dehydrogenase Total Creatine Kinase Troponin I High Sens C-Reactive Protein B-Natriuretic Peptide Total Protein Albumin Vitamin B12 Folate TSH Urine Color Urine Appearance Urine pH Ur Specific [place] Urine Protein Urine Glucose (UA) Urine Ketones Urine Blood Urine Nitrite Ur Leukocyte Esterase Urine RBC Urine WBC Ur Squamous Epith Cells Urine Crystals Urine Bacteria Stool Occult Blood Vancomycin Trough Random Vancomycin SARS-CoV-2 (PCR) COVID-19 ([facility]) Negative COVID-19 Clin Com See Note 06/22/20 06/23/20 06/23/20 20:52 06:02 06:03 WBC 34.5 H* RBC 3.35 L Hgb 9.3 L Hct 28.8 L MCV 86.0 MCH 27.8 MCHC 32.3 RDW 12.5 Plt Count 545 H D MPV 9.9 Immature Gran % (Auto) Neut % (Auto) Lymph % (Auto) [place] % (Auto) Eos % (Auto) Baso % (Auto) Lymph # (Auto) [place] # (Auto) Eos # (Auto) Baso # (Auto) Abs Immat Gran (auto) Absolute Neuts (auto) Absolute Nucleated RBC 0.000 Nucleated RBC % (auto) 0.0 Neutrophils % (Manual) Band Neutrophils % Lymphocytes % (Manual) Atypical Lymphs % (Man) Monocytes % (Manual) Eosinophils % (Manual) Metamyelocytes % Myelocytes % Abs Neuts (Manual) Lymphocytes # (Manual) Atyp Lymphs # (Manual) Monocytes # (Manual) Eosinophils # (Manual) Metamyelocytes # Myelocytes # Platelet Estimate Plt Morphology Comment RBC Morphology Polychromasia Hypochromasia Microcytosis [place] Cells D-Dimer Sodium 136 Potassium 3.6 Chloride 98 Carbon Dioxide 18 L Anion Gap 24 H BUN 10 Creatinine 0.82 Estim Creat Clear Calc 73.5 Estimated GFR > 60 POC Glucose 223 H Random Glucose 302 H Lactic Acid Lactic Acid Fup @ 2Hr Lactic Acid Fup @ 4Hr Calcium 8.7 Magnesium Iron TIBC % Saturation Unsat Iron Binding Ferritin Total Bilirubin 0.7 Direct Bilirubin 0.4 AST 35 H D ALT 43 H Alkaline Phosphatase 93 Lactate Dehydrogenase Total Creatine Kinase Troponin I High Sens C-Reactive Protein B-Natriuretic Peptide Total Protein 6.9 Albumin 3.4 L Vitamin B12 Folate TSH Urine Color Urine Appearance Urine pH Ur Specific [place] Urine Protein Urine Glucose (UA) Urine Ketones Urine Blood Urine Nitrite Ur Leukocyte Esterase Urine RBC Urine WBC Ur Squamous Epith Cells Urine Crystals Urine Bacteria Stool Occult Blood Vancomycin Trough Random Vancomycin SARS-CoV-2 (PCR) COVID-19 ([facility]) COVID-19 Clin Com 06/23/20 06/23/20 06/23/20 07:27 07:37 08:15 WBC RBC Hgb Hct MCV MCH MCHC RDW Plt Count MPV Immature Gran % (Auto) Neut % (Auto) Lymph % (Auto) [place] % (Auto) Eos % (Auto) Baso % (Auto) Lymph # (Auto) [place] # (Auto) Eos # (Auto) Baso # (Auto) Abs Immat Gran (auto) Absolute Neuts (auto) Absolute Nucleated RBC Nucleated RBC % (auto) Neutrophils % (Manual) Band Neutrophils % Lymphocytes % (Manual) Atypical Lymphs % (Man) Monocytes % (Manual) Eosinophils % (Manual) Metamyelocytes % Myelocytes % Abs Neuts (Manual) Lymphocytes # (Manual) Atyp Lymphs # (Manual) Monocytes # (Manual) Eosinophils # (Manual) Metamyelocytes # Myelocytes # Platelet Estimate Plt Morphology Comment RBC Morphology Polychromasia Hypochromasia Microcytosis [place] Cells D-Dimer Sodium Potassium Chloride Carbon Dioxide Anion Gap BUN Creatinine Estim Creat Clear Calc Estimated GFR POC Glucose 293 H Random Glucose Lactic Acid 2.6 H* Lactic Acid Fup @ 2Hr Lactic Acid Fup @ 4Hr Calcium Magnesium Iron TIBC % Saturation Unsat Iron Binding Ferritin Total Bilirubin Direct Bilirubin AST ALT Alkaline Phosphatase Lactate Dehydrogenase Total Creatine Kinase Troponin I High Sens C-Reactive Protein B-Natriuretic Peptide Total Protein Albumin Vitamin B12 Folate TSH Urine Color YELLOW Urine Appearance CLEAR Urine pH 5.5 Ur Specific [place] >= 1.030 H Urine Protein 2+ H Urine Glucose (UA) 500 H Urine Ketones >=80 Urine Blood 2+ H Urine Nitrite NEG Ur Leukocyte Esterase NEG Urine RBC 1-4 Urine WBC 1-4 Ur Squamous Epith Cells 1+ Urine Crystals TRACE Urine Bacteria 3+ Stool Occult Blood Vancomycin Trough Random Vancomycin SARS-CoV-2 (PCR) COVID-19 ([facility]) COVID-19 Clin Com 06/23/20 06/23/20 06/23/20 10:30 11:21 13:19 WBC RBC Hgb Hct MCV MCH MCHC RDW Plt Count MPV Immature Gran % (Auto) Neut % (Auto) Lymph % (Auto) [place] % (Auto) Eos % (Auto) Baso % (Auto) Lymph # (Auto) [place] # (Auto) Eos # (Auto) Baso # (Auto) Abs Immat Gran (auto) Absolute Neuts (auto) Absolute Nucleated RBC Nucleated RBC % (auto) Neutrophils % (Manual) Band Neutrophils % Lymphocytes % (Manual) Atypical Lymphs % (Man) Monocytes % (Manual) Eosinophils % (Manual) Metamyelocytes % Myelocytes % Abs Neuts (Manual) Lymphocytes # (Manual) Atyp Lymphs # (Manual) Monocytes # (Manual) Eosinophils # (Manual) Metamyelocytes # Myelocytes # Platelet Estimate Plt Morphology Comment RBC Morphology Polychromasia Hypochromasia Microcytosis [place] Cells D-Dimer Sodium Potassium Chloride Carbon Dioxide Anion Gap BUN Creatinine Estim Creat Clear Calc Estimated GFR POC Glucose 241 H Random Glucose Lactic Acid Lactic Acid Fup @ 2Hr 2.5 H* Lactic Acid Fup @ 4Hr 2.9 H* Calcium Magnesium Iron TIBC % Saturation Unsat Iron Binding Ferritin Total Bilirubin Direct Bilirubin AST ALT Alkaline Phosphatase Lactate Dehydrogenase Total Creatine Kinase Troponin I High Sens C-Reactive Protein B-Natriuretic Peptide Total Protein Albumin Vitamin B12 Folate TSH Urine Color Urine Appearance Urine pH Ur Specific [place] Urine Protein Urine Glucose (UA) Urine Ketones Urine Blood Urine Nitrite Ur Leukocyte Esterase Urine RBC Urine WBC Ur Squamous Epith Cells Urine Crystals Urine Bacteria Stool Occult Blood Vancomycin Trough Random Vancomycin SARS-CoV-2 (PCR) COVID-19 ([facility]) COVID-19 Clin Com 06/23/20 06/23/20 06/24/20 16:52 21:01 05:27 WBC 31.2 H* RBC 3.12 L Hgb 8.8 L Hct 27.0 L MCV 86.5 MCH 28.2 MCHC 32.6 RDW 12.8 Plt Count 376 D MPV 10.4 Immature Gran % (Auto) Neut % (Auto) Lymph % (Auto) [place] % (Auto) Eos % (Auto) Baso % (Auto) Lymph # (Auto) [place] # (Auto) Eos # (Auto) Baso # (Auto) Abs Immat Gran (auto) Absolute Neuts (auto) Absolute Nucleated RBC 0.000 Nucleated RBC % (auto) 0.0 Neutrophils % (Manual) Band Neutrophils % Lymphocytes % (Manual) Atypical Lymphs % (Man) Monocytes % (Manual) Eosinophils % (Manual) Metamyelocytes % Myelocytes % Abs Neuts (Manual) Lymphocytes # (Manual) Atyp Lymphs # (Manual) Monocytes # (Manual) Eosinophils # (Manual) Metamyelocytes # Myelocytes # Platelet Estimate Plt Morphology Comment RBC Morphology Polychromasia Hypochromasia Microcytosis [place] Cells D-Dimer Sodium Potassium Chloride Carbon Dioxide Anion Gap BUN Creatinine Estim Creat Clear Calc Estimated GFR POC Glucose 267 H 195 H Random Glucose Lactic Acid Lactic Acid Fup @ 2Hr Lactic Acid Fup @ 4Hr Calcium Magnesium Iron TIBC % Saturation Unsat Iron Binding Ferritin Total Bilirubin Direct Bilirubin AST ALT Alkaline Phosphatase Lactate Dehydrogenase Total Creatine Kinase Troponin I High Sens C-Reactive Protein B-Natriuretic Peptide Total Protein Albumin Vitamin B12 Folate TSH Urine Color Urine Appearance Urine pH Ur Specific [place] Urine Protein Urine Glucose (UA) Urine Ketones Urine Blood Urine Nitrite Ur Leukocyte Esterase Urine RBC Urine WBC Ur Squamous Epith Cells Urine Crystals Urine Bacteria Stool Occult Blood Vancomycin Trough Random Vancomycin SARS-CoV-2 (PCR) COVID-19 ([facility]) COVID-19 Clin Com 06/24/20 06/24/20 06/24/20 05:27 05:27 07:39 WBC RBC Hgb Hct MCV MCH MCHC RDW Plt Count MPV Immature Gran % (Auto) Neut % (Auto) Lymph % (Auto) [place] % (Auto) Eos % (Auto) Baso % (Auto) Lymph # (Auto) [place] # (Auto) Eos # (Auto) Baso # (Auto) Abs Immat Gran (auto) Absolute Neuts (auto) Absolute Nucleated RBC Nucleated RBC % (auto) Neutrophils % (Manual) Band Neutrophils % Lymphocytes % (Manual) Atypical Lymphs % (Man) Monocytes % (Manual) Eosinophils % (Manual) Metamyelocytes % Myelocytes % Abs Neuts (Manual) Lymphocytes # (Manual) Atyp Lymphs # (Manual) Monocytes # (Manual) Eosinophils # (Manual) Metamyelocytes # Myelocytes # Platelet Estimate Plt Morphology Comment RBC Morphology Polychromasia Hypochromasia Microcytosis [place] Cells D-Dimer Sodium 136 Potassium 3.1 L Chloride 104 Carbon Dioxide 16 L Anion Gap 19 BUN 13 Creatinine 0.83 Estim Creat Clear Calc 72.6 Estimated GFR > 60 POC Glucose 300 H Random Glucose 307 H Lactic Acid Lactic Acid Fup @ 2Hr Lactic Acid Fup @ 4Hr Calcium 7.9 L D Magnesium 1.4 L* Iron TIBC % Saturation Unsat Iron Binding Ferritin Total Bilirubin 0.4 Direct Bilirubin 0.3 AST 31 ALT 34 H Alkaline Phosphatase 104 Lactate Dehydrogenase Total Creatine Kinase Troponin I High Sens C-Reactive Protein B-Natriuretic Peptide Total Protein 5.5 L D Albumin 2.6 L D Vitamin B12 Folate TSH 1.45 Urine Color Urine Appearance Urine pH Ur Specific [place] Urine Protein Urine Glucose (UA) Urine Ketones Urine Blood Urine Nitrite Ur Leukocyte Esterase Urine RBC Urine WBC Ur Squamous Epith Cells Urine Crystals Urine Bacteria Stool Occult Blood Vancomycin Trough Random Vancomycin SARS-CoV-2 (PCR) COVID-19 ([facility]) COVID-19 Clin [facility] 06/24/20 06/24/20 06/24/20 11:25 13:35 15:32 WBC RBC Hgb Hct MCV MCH MCHC RDW Plt Count MPV Immature Gran % (Auto) Neut % (Auto) Lymph % (Auto) [place] % (Auto) Eos % (Auto) Baso % (Auto) Lymph # (Auto) [place] # (Auto) Eos # (Auto) Baso # (Auto) Abs Immat Gran (auto) Absolute Neuts (auto) Absolute Nucleated RBC Nucleated RBC % (auto) Neutrophils % (Manual) Band Neutrophils % Lymphocytes % (Manual) Atypical Lymphs % (Man) Monocytes % (Manual) Eosinophils % (Manual) Metamyelocytes % Myelocytes % Abs Neuts (Manual) Lymphocytes # (Manual) Atyp Lymphs # (Manual) Monocytes # (Manual) Eosinophils # (Manual) Metamyelocytes # Myelocytes # Platelet Estimate Plt Morphology Comment RBC Morphology Polychromasia Hypochromasia Microcytosis [place] Cells D-Dimer Sodium Potassium Chloride Carbon Dioxide Anion Gap BUN Creatinine Estim Creat Clear Calc Estimated GFR POC Glucose 300 H 297 H Random Glucose Lactic Acid Lactic Acid Fup @ 2Hr Lactic Acid Fup @ 4Hr Calcium Magnesium Iron TIBC % Saturation Unsat Iron Binding Ferritin Total Bilirubin Direct Bilirubin AST ALT Alkaline Phosphatase Lactate Dehydrogenase Total Creatine Kinase Troponin I High Sens C-Reactive Protein B-Natriuretic Peptide Total Protein Albumin Vitamin B12 Folate TSH Urine Color Urine Appearance Urine pH Ur Specific [place] Urine Protein Urine Glucose (UA) Urine Ketones Urine Blood Urine Nitrite Ur Leukocyte Esterase Urine RBC Urine WBC Ur Squamous Epith Cells Urine Crystals Urine Bacteria Stool Occult Blood Vancomycin Trough < 3.0 L Random Vancomycin SARS-CoV-2 (PCR) COVID-19 ([facility]) COVID-19 Clin Com 06/24/20 06/24/20 06/24/20 15:53 18:13 20:52 WBC RBC Hgb Hct MCV MCH MCHC RDW Plt Count MPV Immature Gran % (Auto) Neut % (Auto) Lymph % (Auto) [place] % (Auto) Eos % (Auto) Baso % (Auto) Lymph # (Auto) [place] # (Auto) Eos # (Auto) Baso # (Auto) Abs Immat Gran (auto) Absolute Neuts (auto) Absolute Nucleated RBC Nucleated RBC % (auto) Neutrophils % (Manual) Band Neutrophils % Lymphocytes % (Manual) Atypical Lymphs % (Man) Monocytes % (Manual) Eosinophils % (Manual) Metamyelocytes % Myelocytes % Abs Neuts (Manual) Lymphocytes # (Manual) Atyp Lymphs # (Manual) Monocytes # (Manual) Eosinophils # (Manual) Metamyelocytes # Myelocytes # Platelet Estimate Plt Morphology Comment RBC Morphology Polychromasia Hypochromasia Microcytosis [place] Cells D-Dimer Sodium Potassium Chloride Carbon Dioxide Anion Gap BUN Creatinine Estim Creat Clear Calc Estimated GFR POC Glucose 296 H 224 H Random Glucose Lactic Acid Lactic Acid Fup @ 2Hr Lactic Acid Fup @ 4Hr Calcium Magnesium Iron TIBC % Saturation Unsat Iron Binding Ferritin Total Bilirubin Direct Bilirubin AST ALT Alkaline Phosphatase Lactate Dehydrogenase Total Creatine Kinase Troponin I High Sens C-Reactive Protein B-Natriuretic Peptide 594 H Total Protein Albumin Vitamin B12 Folate TSH Urine Color Urine Appearance Urine pH Ur Specific [place] Urine Protein Urine Glucose (UA) Urine Ketones Urine Blood Urine Nitrite Ur Leukocyte Esterase Urine RBC Urine WBC Ur Squamous Epith Cells Urine Crystals Urine Bacteria Stool Occult Blood Vancomycin Trough Random Vancomycin SARS-CoV-2 (PCR) COVID-19 ([facility]) COVID-19 Clin Com 06/25/20 06/25/20 06/25/20 05:20 05:20 05:20 WBC 27.6 H RBC 3.00 L Hgb 8.4 L Hct 25.8 L MCV 86.0 MCH 28.0 MCHC 32.6 RDW 12.8 Plt Count 452 H MPV 10.3 Immature Gran % (Auto) Neut % (Auto) Lymph % (Auto) [place] % (Auto) Eos % (Auto) Baso % (Auto) Lymph # (Auto) [place] # (Auto) Eos # (Auto) Baso # (Auto) Abs Immat Gran (auto) Absolute Neuts (auto) Absolute Nucleated RBC 0.000 Nucleated RBC % (auto) 0.0 Neutrophils % (Manual) Band Neutrophils % Lymphocytes % (Manual) Atypical Lymphs % (Man) Monocytes % (Manual) Eosinophils % (Manual) Metamyelocytes % Myelocytes % Abs Neuts (Manual) Lymphocytes # (Manual) Atyp Lymphs # (Manual) Monocytes # (Manual) Eosinophils # (Manual) Metamyelocytes # Myelocytes # Platelet Estimate Plt Morphology Comment RBC Morphology Polychromasia Hypochromasia Microcytosis [place] Cells D-Dimer 2178 Sodium Potassium Chloride Carbon Dioxide Anion Gap BUN Creatinine Estim Creat Clear Calc Estimated GFR POC Glucose Random Glucose Lactic Acid Lactic Acid Fup @ 2Hr Lactic Acid Fup @ 4Hr Calcium Magnesium 2.0 Iron TIBC % Saturation Unsat Iron Binding Ferritin Total Bilirubin Direct Bilirubin AST ALT Alkaline Phosphatase Lactate Dehydrogenase Total Creatine Kinase Troponin I High Sens C-Reactive Protein B-Natriuretic Peptide Total Protein Albumin Vitamin B12 Folate TSH Urine Color Urine Appearance Urine pH Ur Specific [place] Urine Protein Urine Glucose (UA) Urine Ketones Urine Blood Urine Nitrite Ur Leukocyte Esterase Urine RBC Urine WBC Ur Squamous Epith Cells Urine Crystals Urine Bacteria Stool Occult Blood Vancomycin Trough Random Vancomycin SARS-CoV-2 (PCR) COVID-19 ([facility]) COVID-19 Clin Com 06/25/20 06/25/20 06/25/20 05:20 09:00 11:18 WBC RBC Hgb Hct MCV MCH MCHC RDW Plt Count MPV Immature Gran % (Auto) Neut % (Auto) Lymph % (Auto) [place] % (Auto) Eos % (Auto) Baso % (Auto) Lymph # (Auto) [place] # (Auto) Eos # (Auto) Baso # (Auto) Abs Immat Gran (auto) Absolute Neuts (auto) Absolute Nucleated RBC Nucleated RBC % (auto) Neutrophils % (Manual) Band Neutrophils % Lymphocytes % (Manual) Atypical Lymphs % (Man) Monocytes % (Manual) Eosinophils % (Manual) Metamyelocytes % Myelocytes % Abs Neuts (Manual) Lymphocytes # (Manual) Atyp Lymphs # (Manual) Monocytes # (Manual) Eosinophils # (Manual) Metamyelocytes # Myelocytes # Platelet Estimate Plt Morphology Comment RBC Morphology Polychromasia Hypochromasia Microcytosis [place] Cells D-Dimer Sodium Cancelled Potassium Cancelled Chloride Cancelled Carbon Dioxide Cancelled Anion Gap Cancelled BUN Cancelled Creatinine Cancelled Estim Creat Clear Calc Cancelled Estimated GFR Cancelled POC Glucose 279 H 280 H Random Glucose Cancelled Lactic Acid Lactic Acid Fup @ 2Hr Lactic Acid Fup @ 4Hr Calcium Cancelled Magnesium Iron TIBC % Saturation Unsat Iron Binding Ferritin Total Bilirubin Cancelled Direct Bilirubin Cancelled AST Cancelled ALT Cancelled Alkaline Phosphatase Cancelled Lactate Dehydrogenase Cancelled Total Creatine Kinase Troponin I High Sens C-Reactive Protein Cancelled B-Natriuretic Peptide Total Protein Cancelled Albumin Cancelled Vitamin B12 Folate TSH Urine Color Urine Appearance Urine pH Ur Specific [place] Urine Protein Urine Glucose (UA) Urine Ketones Urine Blood Urine Nitrite Ur Leukocyte Esterase Urine RBC Urine WBC Ur Squamous Epith Cells Urine Crystals Urine Bacteria Stool Occult Blood Vancomycin Trough Random Vancomycin SARS-CoV-2 (PCR) COVID-19 ([facility]) COVID-19 Clin Com 06/25/20 06/25/20 06/26/20 16:47 20:43 07:00 WBC RBC Hgb Hct MCV MCH MCHC RDW Plt Count MPV Immature Gran % (Auto) Neut % (Auto) Lymph % (Auto) [place] % (Auto) Eos % (Auto) Baso % (Auto) Lymph # (Auto) [place] # (Auto) Eos # (Auto) Baso # (Auto) Abs Immat Gran (auto) Absolute Neuts (auto) Absolute Nucleated RBC Nucleated RBC % (auto) Neutrophils % (Manual) Band Neutrophils % Lymphocytes % (Manual) Atypical Lymphs % (Man) Monocytes % (Manual) Eosinophils % (Manual) Metamyelocytes % Myelocytes % Abs Neuts (Manual) Lymphocytes # (Manual) Atyp Lymphs # (Manual) Monocytes # (Manual) Eosinophils # (Manual) Metamyelocytes # Myelocytes # Platelet Estimate Plt Morphology Comment RBC Morphology Polychromasia Hypochromasia Microcytosis [place] Cells D-Dimer Sodium 132 L Potassium 3.1 L Chloride 100 Carbon Dioxide 20 L Anion Gap 15 BUN 29 H D Creatinine 1.29 Estim Creat Clear Calc 46.8 Estimated GFR 41 POC Glucose 199 H 179 H Random Glucose 178 H D Lactic Acid Lactic Acid Fup @ 2Hr Lactic Acid Fup @ 4Hr Calcium 7.6 L Magnesium Iron TIBC % Saturation Unsat Iron Binding Ferritin Total Bilirubin Direct Bilirubin AST ALT Alkaline Phosphatase Lactate Dehydrogenase Total Creatine Kinase Troponin I High Sens C-Reactive Protein B-Natriuretic Peptide Total Protein Albumin Vitamin B12 Folate TSH Urine Color Urine Appearance Urine pH Ur Specific [place] Urine Protein Urine Glucose (UA) Urine Ketones Urine Blood Urine Nitrite Ur Leukocyte Esterase Urine RBC Urine WBC Ur Squamous Epith Cells Urine Crystals Urine Bacteria Stool Occult Blood Vancomycin Trough Random Vancomycin SARS-CoV-2 (PCR) COVID-19 ([facility]) COVID-19 Clin Com 06/26/20 06/26/20 06/26/20 07:00 07:17 07:54 WBC 19.8 H RBC 2.92 L Hgb 8.1 L Hct 24.8 L MCV 84.9 MCH 27.7 MCHC 32.7 RDW 12.7 Plt Count 417 H MPV 10.2 Immature Gran % (Auto) Neut % (Auto) Lymph % (Auto) [place] % (Auto) Eos % (Auto) Baso % (Auto) Lymph # (Auto) [place] # (Auto) Eos # (Auto) Baso # (Auto) Abs Immat Gran (auto) Absolute Neuts (auto) Absolute Nucleated RBC 0.000 Nucleated RBC % (auto) 0.0 Neutrophils % (Manual) Band Neutrophils % Lymphocytes % (Manual) Atypical Lymphs % (Man) Monocytes % (Manual) Eosinophils % (Manual) Metamyelocytes % Myelocytes % Abs Neuts (Manual) Lymphocytes # (Manual) Atyp Lymphs # (Manual) Monocytes # (Manual) Eosinophils # (Manual) Metamyelocytes # Myelocytes # Platelet Estimate Plt Morphology Comment RBC Morphology Polychromasia Hypochromasia Microcytosis [place] Cells D-Dimer Sodium Potassium Chloride Carbon Dioxide Anion Gap BUN Creatinine Estim Creat Clear Calc Estimated GFR POC Glucose 186 H Random Glucose Lactic Acid Lactic Acid Fup @ 2Hr Lactic Acid Fup @ 4Hr Calcium Magnesium Iron TIBC % Saturation Unsat Iron Binding Ferritin Total Bilirubin Direct Bilirubin AST ALT Alkaline Phosphatase Lactate Dehydrogenase Total Creatine Kinase Troponin I High Sens C-Reactive Protein B-Natriuretic Peptide Total Protein Albumin Vitamin B12 Folate TSH Urine Color Urine Appearance Urine pH Ur Specific [place] Urine Protein Urine Glucose (UA) Urine Ketones Urine Blood Urine Nitrite Ur Leukocyte Esterase Urine RBC Urine WBC Ur Squamous Epith Cells Urine Crystals Urine Bacteria Stool Occult Blood Vancomycin Trough 21.8 H Random Vancomycin SARS-CoV-2 (PCR) COVID-19 ([facility]) COVID-19 Clin Com 06/26/20 06/26/20 06/26/20 11:09 14:05 16:53 WBC RBC Hgb Hct MCV MCH MCHC RDW Plt Count MPV Immature Gran % (Auto) Neut % (Auto) Lymph % (Auto) [place] % (Auto) Eos % (Auto) Baso % (Auto) Lymph # (Auto) [place] # (Auto) Eos # (Auto) Baso # (Auto) Abs Immat Gran (auto) Absolute Neuts (auto) Absolute Nucleated RBC Nucleated RBC % (auto) Neutrophils % (Manual) Band Neutrophils % Lymphocytes % (Manual) Atypical Lymphs % (Man) Monocytes % (Manual) Eosinophils % (Manual) Metamyelocytes % Myelocytes % Abs Neuts (Manual) Lymphocytes # (Manual) Atyp Lymphs # (Manual) Monocytes # (Manual) Eosinophils # (Manual) Metamyelocytes # Myelocytes # Platelet Estimate Plt Morphology Comment RBC Morphology Polychromasia Hypochromasia Microcytosis [place] Cells D-Dimer Sodium Potassium Chloride Carbon Dioxide Anion Gap BUN Creatinine Estim Creat Clear Calc Estimated GFR POC Glucose 271 H 235 H Random Glucose Lactic Acid Lactic Acid Fup @ 2Hr Lactic Acid Fup @ 4Hr Calcium Magnesium Iron TIBC % Saturation Unsat Iron Binding Ferritin Total Bilirubin Direct Bilirubin AST ALT Alkaline Phosphatase Lactate Dehydrogenase Total Creatine Kinase Troponin I High Sens C-Reactive Protein B-Natriuretic Peptide Total Protein Albumin Vitamin B12 Folate TSH Urine Color Urine Appearance Urine pH Ur Specific [place] Urine Protein Urine Glucose (UA) Urine Ketones Urine Blood Urine Nitrite Ur Leukocyte Esterase Urine RBC Urine WBC Ur Squamous Epith Cells Urine Crystals Urine Bacteria Stool Occult Blood Vancomycin Trough 17.8 Random Vancomycin SARS-CoV-2 (PCR) COVID-19 ([facility]) COVID-19 [employer] 06/26/20 06/26/20 06/27/20 19:51 20:47 08:21 WBC RBC Hgb Hct MCV MCH MCHC RDW Plt Count MPV Immature Gran % (Auto) Neut % (Auto) Lymph % (Auto) [place] % (Auto) Eos % (Auto) Baso % (Auto) Lymph # (Auto) [place] # (Auto) Eos # (Auto) Baso # (Auto) Abs Immat Gran (auto) Absolute Neuts (auto) Absolute Nucleated RBC Nucleated RBC % (auto) Neutrophils % (Manual) Band Neutrophils % Lymphocytes % (Manual) Atypical Lymphs % (Man) Monocytes % (Manual) Eosinophils % (Manual) Metamyelocytes % Myelocytes % Abs Neuts (Manual) Lymphocytes # (Manual) Atyp Lymphs # (Manual) Monocytes # (Manual) Eosinophils # (Manual) Metamyelocytes # Myelocytes # Platelet Estimate Plt Morphology Comment RBC Morphology Polychromasia Hypochromasia Microcytosis [place] Cells D-Dimer Sodium Potassium Chloride Carbon Dioxide Anion Gap BUN Creatinine Estim Creat Clear Calc Estimated GFR POC Glucose 218 H 185 H 220 H Random Glucose Lactic Acid Lactic Acid Fup @ 2Hr Lactic Acid Fup @ 4Hr Calcium Magnesium Iron TIBC % Saturation Unsat Iron Binding Ferritin Total Bilirubin Direct Bilirubin AST ALT Alkaline Phosphatase Lactate Dehydrogenase Total Creatine Kinase Troponin I High Sens C-Reactive Protein B-Natriuretic Peptide Total Protein Albumin Vitamin B12 Folate TSH Urine Color Urine Appearance Urine pH Ur Specific [place] Urine Protein Urine Glucose (UA) Urine Ketones Urine Blood Urine Nitrite Ur Leukocyte Esterase Urine RBC Urine WBC Ur Squamous Epith Cells Urine Crystals Urine Bacteria Stool Occult Blood Vancomycin Trough Random Vancomycin SARS-CoV-2 (PCR) COVID-19 ([facility]) COVID-19 Clin Com 06/27/20 06/27/20 06/27/20 10:25 10:25 11:19 WBC 20.1 H RBC 3.73 L D Hgb 10.3 L D Hct 31.3 L D MCV 83.9 MCH 27.6 MCHC 32.9 RDW 12.6 Plt Count 375 MPV 11.2 Immature Gran % (Auto) Cancelled Neut % (Auto) Cancelled Lymph % (Auto) Cancelled [place] % (Auto) Cancelled Eos % (Auto) Cancelled Baso % (Auto) Cancelled Lymph # (Auto) Cancelled [place] # (Auto) Cancelled Eos # (Auto) Cancelled Baso # (Auto) Cancelled Abs Immat Gran (auto) Cancelled Absolute Neuts (auto) Cancelled Absolute Nucleated RBC 0.000 Nucleated RBC % (auto) 0.0 Neutrophils % (Manual) 71 Band Neutrophils % 3 Lymphocytes % (Manual) 16 L Atypical Lymphs % (Man) 1 Monocytes % (Manual) 7 Eosinophils % (Manual) Metamyelocytes % 2 Myelocytes % Abs Neuts (Manual) 14.9 H Lymphocytes # (Manual) 3.2 Atyp Lymphs # (Manual) 0.2 Monocytes # (Manual) 1.4 H Eosinophils # (Manual) Metamyelocytes # 0.4 Myelocytes # Platelet Estimate NORMAL Plt Morphology Comment NORMAL RBC Morphology NOTED Polychromasia Hypochromasia 1+ Microcytosis [place] Cells D-Dimer Sodium Cancelled Potassium Cancelled Chloride Cancelled Carbon Dioxide Cancelled Anion Gap Cancelled BUN Cancelled Creatinine Cancelled Estim Creat Clear Calc Cancelled Estimated GFR Cancelled POC Glucose 257 H Random Glucose Cancelled Lactic Acid Lactic Acid Fup @ 2Hr Lactic Acid Fup @ 4Hr Calcium Cancelled Magnesium Iron TIBC % Saturation Unsat Iron Binding Ferritin Total Bilirubin Direct Bilirubin AST ALT Alkaline Phosphatase Lactate Dehydrogenase Total Creatine Kinase Troponin I High Sens C-Reactive Protein B-Natriuretic Peptide Total Protein Albumin Vitamin B12 Folate TSH Urine Color Urine Appearance Urine pH Ur Specific [place] Urine Protein Urine Glucose (UA) Urine Ketones Urine Blood Urine Nitrite Ur Leukocyte Esterase Urine RBC Urine WBC Ur Squamous Epith Cells Urine Crystals Urine Bacteria Stool Occult Blood Vancomycin Trough Random Vancomycin SARS-CoV-2 (PCR) COVID-19 ([facility]) COVID-19 Clin Com 06/27/20 06/27/20 06/27/20 13:14 13:14 16:44 WBC RBC Hgb Hct MCV MCH MCHC RDW Plt Count MPV Immature Gran % (Auto) Neut % (Auto) Lymph % (Auto) [place] % (Auto) Eos % (Auto) Baso % (Auto) Lymph # (Auto) [place] # (Auto) Eos # (Auto) Baso # (Auto) Abs Immat Gran (auto) Absolute Neuts (auto) Absolute Nucleated RBC Nucleated RBC % (auto) Neutrophils % (Manual) Band Neutrophils % Lymphocytes % (Manual) Atypical Lymphs % (Man) Monocytes % (Manual) Eosinophils % (Manual) Metamyelocytes % Myelocytes % Abs Neuts (Manual) Lymphocytes # (Manual) Atyp Lymphs # (Manual) Monocytes # (Manual) Eosinophils # (Manual) Metamyelocytes # Myelocytes # Platelet Estimate Plt Morphology Comment RBC Morphology Polychromasia Hypochromasia Microcytosis [place] Cells D-Dimer Sodium 131 L Potassium 3.1 L Chloride 99 Carbon Dioxide 23 Anion Gap 12 BUN 19 H Creatinine 1.26 Estim Creat Clear Calc 47.9 Estimated GFR 42 POC Glucose 200 H Random Glucose 280 H D Lactic Acid Lactic Acid Fup @ 2Hr Lactic Acid Fup @ 4Hr Calcium 8.0 L Magnesium Iron TIBC % Saturation Unsat Iron Binding Ferritin Total Bilirubin Direct Bilirubin AST ALT Alkaline Phosphatase Lactate Dehydrogenase Total Creatine Kinase Troponin I High Sens C-Reactive Protein B-Natriuretic Peptide Total Protein Albumin Vitamin B12 Folate TSH Urine Color Urine Appearance Urine pH Ur Specific [place] Urine Protein Urine Glucose (UA) Urine Ketones Urine Blood Urine Nitrite Ur Leukocyte Esterase Urine RBC Urine WBC Ur Squamous Epith Cells Urine Crystals Urine Bacteria Stool Occult Blood Vancomycin Trough Random Vancomycin 15.4 SARS-CoV-2 (PCR) COVID-19 ([facility]) COVID-19 Clin Com 06/27/20 06/27/20 06/28/20 20:52 21:23 05:23 WBC 23.8 H RBC 3.04 L Hgb 8.5 L Hct 25.6 L MCV 84.2 MCH 28.0 MCHC 33.2 RDW 12.8 Plt Count 442 H MPV 10.2 Immature Gran % (Auto) Cancelled Neut % (Auto) Cancelled Lymph % (Auto) Cancelled [place] % (Auto) Cancelled Eos % (Auto) Cancelled Baso % (Auto) Cancelled Lymph # (Auto) Cancelled [place] # (Auto) Cancelled Eos # (Auto) Cancelled Baso # (Auto) Cancelled Abs Immat Gran (auto) Cancelled Absolute Neuts (auto) Cancelled Absolute Nucleated RBC 0.020 H Nucleated RBC % (auto) 0.1 Neutrophils % (Manual) 82 H Band Neutrophils % 1 L Lymphocytes % (Manual) 8 L Atypical Lymphs % (Man) Monocytes % (Manual) 6 Eosinophils % (Manual) 2 Metamyelocytes % 1 Myelocytes % Abs Neuts (Manual) 19.8 H Lymphocytes # (Manual) 1.9 Atyp Lymphs # (Manual) Monocytes # (Manual) 1.4 H Eosinophils # (Manual) 0.5 Metamyelocytes # 0.2 Myelocytes # Platelet Estimate INCREASED Plt Morphology Comment L RBC Morphology NOTED Polychromasia Hypochromasia 1+ Microcytosis 1+ [place] Cells D-Dimer Sodium Potassium Chloride Carbon Dioxide Anion Gap BUN Creatinine Estim Creat Clear Calc Estimated GFR POC Glucose 133 H 120 H Random Glucose Lactic Acid Lactic Acid Fup @ 2Hr Lactic Acid Fup @ 4Hr Calcium Magnesium Iron TIBC % Saturation Unsat Iron Binding Ferritin Total Bilirubin Direct Bilirubin AST ALT Alkaline Phosphatase Lactate Dehydrogenase Total Creatine Kinase Troponin I High Sens C-Reactive Protein B-Natriuretic Peptide Total Protein Albumin Vitamin B12 Folate TSH Urine Color Urine Appearance Urine pH Ur Specific [place] Urine Protein Urine Glucose (UA) Urine Ketones Urine Blood Urine Nitrite Ur Leukocyte Esterase Urine RBC Urine WBC Ur Squamous Epith Cells Urine Crystals Urine Bacteria Stool Occult Blood Vancomycin Trough Random Vancomycin SARS-CoV-2 (PCR) COVID-19 ([facility]) COVID-19 Clin Com 06/28/20 06/28/20 06/28/20 05:23 07:29 10:58 WBC RBC Hgb Hct MCV MCH MCHC RDW Plt Count MPV Immature Gran % (Auto) Neut % (Auto) Lymph % (Auto) [place] % (Auto) Eos % (Auto) Baso % (Auto) Lymph # (Auto) [place] # (Auto) Eos # (Auto) Baso # (Auto) Abs Immat Gran (auto) Absolute Neuts (auto) Absolute Nucleated RBC Nucleated RBC % (auto) Neutrophils % (Manual) Band Neutrophils % Lymphocytes % (Manual) Atypical Lymphs % (Man) Monocytes % (Manual) Eosinophils % (Manual) Metamyelocytes % Myelocytes % Abs Neuts (Manual) Lymphocytes # (Manual) Atyp Lymphs # (Manual) Monocytes # (Manual) Eosinophils # (Manual) Metamyelocytes # Myelocytes # Platelet Estimate Plt Morphology Comment RBC Morphology Polychromasia Hypochromasia Microcytosis [place] Cells D-Dimer Sodium 135 Potassium 3.2 L Chloride 103 Carbon Dioxide 18 L Anion Gap 17 BUN 19 H Creatinine 1.15 Estim Creat Clear Calc 52.4 Estimated GFR 47 POC Glucose 180 H 232 H Random Glucose 145 H D Lactic Acid Lactic Acid Fup @ 2Hr Lactic Acid Fup @ 4Hr Calcium 7.7 L Magnesium 1.8 Iron TIBC % Saturation Unsat Iron Binding Ferritin Total Bilirubin Direct Bilirubin AST ALT Alkaline Phosphatase Lactate Dehydrogenase Total Creatine Kinase Troponin I High Sens C-Reactive Protein B-Natriuretic Peptide Total Protein Albumin Vitamin B12 Folate TSH Urine Color Urine Appearance Urine pH Ur Specific [place] Urine Protein Urine Glucose (UA) Urine Ketones Urine Blood Urine Nitrite Ur Leukocyte Esterase Urine RBC Urine WBC Ur Squamous Epith Cells Urine Crystals Urine Bacteria Stool Occult Blood Vancomycin Trough Random Vancomycin SARS-CoV-2 (PCR) COVID-19 ([facility]) COVID-19 Clin [facility] 06/28/20 06/28/20 06/29/20 16:50 20:48 06:23 WBC 25.2 H RBC 3.36 L Hgb 9.4 L Hct 29.0 L MCV 86.3 MCH 28.0 MCHC 32.4 RDW 13.2 Plt Count 407 H MPV 10.2 Immature Gran % (Auto) Cancelled Neut % (Auto) Cancelled Lymph % (Auto) Cancelled [place] % (Auto) Cancelled Eos % (Auto) Cancelled Baso % (Auto) Cancelled Lymph # (Auto) Cancelled [place] # (Auto) Cancelled Eos # (Auto) Cancelled Baso # (Auto) Cancelled Abs Immat Gran (auto) Cancelled Absolute Neuts (auto) Cancelled Absolute Nucleated RBC 0.000 Nucleated RBC % (auto) 0.0 Neutrophils % (Manual) 88 H Band Neutrophils % 0 L Lymphocytes % (Manual) 9 L Atypical Lymphs % (Man) Monocytes % (Manual) 1 L Eosinophils % (Manual) 1 Metamyelocytes % 1 Myelocytes % Abs Neuts (Manual) 22.2 H Lymphocytes # (Manual) 2.3 Atyp Lymphs # (Manual) Monocytes # (Manual) 0.3 Eosinophils # (Manual) 0.3 Metamyelocytes # 0.3 Myelocytes # Platelet Estimate NORMAL Plt Morphology Comment NORMAL RBC Morphology NOTED Polychromasia 1+ Hypochromasia Microcytosis [place] Cells 2+ D-Dimer Sodium Potassium Chloride Carbon Dioxide Anion Gap BUN Creatinine Estim Creat Clear Calc Estimated GFR POC Glucose 194 H 274 H Random Glucose Lactic Acid Lactic Acid Fup @ 2Hr Lactic Acid Fup @ 4Hr Calcium Magnesium Iron TIBC % Saturation Unsat Iron Binding Ferritin Total Bilirubin Direct Bilirubin AST ALT Alkaline Phosphatase Lactate Dehydrogenase Total Creatine Kinase Troponin I High Sens C-Reactive Protein B-Natriuretic Peptide Total Protein Albumin Vitamin B12 Folate TSH Urine Color Urine Appearance Urine pH Ur Specific [place] Urine Protein Urine Glucose (UA) Urine Ketones Urine Blood Urine Nitrite Ur Leukocyte Esterase Urine RBC Urine WBC Ur Squamous Epith Cells Urine Crystals Urine Bacteria Stool Occult Blood Vancomycin Trough Random Vancomycin SARS-CoV-2 (PCR) COVID-19 ([facility]) COVID-19 Clin Com 06/29/20 06/29/20 06/29/20 06:23 07:50 09:09 WBC RBC Hgb Hct MCV MCH MCHC RDW Plt Count MPV Immature Gran % (Auto) Neut % (Auto) Lymph % (Auto) [place] % (Auto) Eos % (Auto) Baso % (Auto) Lymph # (Auto) [place] # (Auto) Eos # (Auto) Baso # (Auto) Abs Immat Gran (auto) Absolute Neuts (auto) Absolute Nucleated RBC Nucleated RBC % (auto) Neutrophils % (Manual) Band Neutrophils % Lymphocytes % (Manual) Atypical Lymphs % (Man) Monocytes % (Manual) Eosinophils % (Manual) Metamyelocytes % Myelocytes % Abs Neuts (Manual) Lymphocytes # (Manual) Atyp Lymphs # (Manual) Monocytes # (Manual) Eosinophils # (Manual) Metamyelocytes # Myelocytes # Platelet Estimate Plt Morphology Comment RBC Morphology Polychromasia Hypochromasia Microcytosis [place] Cells D-Dimer Sodium 138 Potassium 2.9 L Chloride 105 Carbon Dioxide 21 L Anion Gap 15 BUN 15 Creatinine 1.07 Estim Creat Clear Calc 56.4 Estimated GFR 51 POC Glucose 87 97 Random Glucose 58 L* Lactic Acid Lactic Acid Fup @ 2Hr Lactic Acid Fup @ 4Hr Calcium 7.9 L Magnesium Iron TIBC % Saturation Unsat Iron Binding Ferritin Total Bilirubin Direct Bilirubin AST ALT Alkaline Phosphatase Lactate Dehydrogenase Total Creatine Kinase Troponin I High Sens C-Reactive Protein B-Natriuretic Peptide Total Protein Albumin Vitamin B12 Folate TSH Urine Color Urine Appearance Urine pH Ur Specific [place] Urine Protein Urine Glucose (UA) Urine Ketones Urine Blood Urine Nitrite Ur Leukocyte Esterase Urine RBC Urine WBC Ur Squamous Epith Cells Urine Crystals Urine Bacteria Stool Occult Blood Vancomycin Trough Random Vancomycin SARS-CoV-2 (PCR) COVID-19 ([facility]) COVID-19 Clin Com 06/29/20 06/29/20 06/29/20 11:10 13:35 16:37 WBC RBC Hgb Hct MCV MCH MCHC RDW Plt Count MPV Immature Gran % (Auto) Neut % (Auto) Lymph % (Auto) [place] % (Auto) Eos % (Auto) Baso % (Auto) Lymph # (Auto) [place] # (Auto) Eos # (Auto) Baso # (Auto) Abs Immat Gran (auto) Absolute Neuts (auto) Absolute Nucleated RBC Nucleated RBC % (auto) Neutrophils % (Manual) Band Neutrophils % Lymphocytes % (Manual) Atypical Lymphs % (Man) Monocytes % (Manual) Eosinophils % (Manual) Metamyelocytes % Myelocytes % Abs Neuts (Manual) Lymphocytes # (Manual) Atyp Lymphs # (Manual) Monocytes # (Manual) Eosinophils # (Manual) Metamyelocytes # Myelocytes # Platelet Estimate Plt Morphology Comment RBC Morphology Polychromasia Hypochromasia Microcytosis [place] Cells D-Dimer Sodium Potassium 3.9 D Chloride Carbon Dioxide Anion Gap BUN Creatinine Estim Creat Clear Calc Estimated GFR POC Glucose 129 H 129 H Random Glucose Lactic Acid Lactic Acid Fup @ 2Hr Lactic Acid Fup @ 4Hr Calcium Magnesium Iron TIBC % Saturation Unsat Iron Binding Ferritin Total Bilirubin Direct Bilirubin AST ALT Alkaline Phosphatase Lactate Dehydrogenase Total Creatine Kinase Troponin I High Sens C-Reactive Protein B-Natriuretic Peptide Total Protein Albumin Vitamin B12 Folate TSH Urine Color Urine Appearance Urine pH Ur Specific [place] Urine Protein Urine Glucose (UA) Urine Ketones Urine Blood Urine Nitrite Ur Leukocyte Esterase Urine RBC Urine WBC Ur Squamous Epith Cells Urine Crystals Urine Bacteria Stool Occult Blood Vancomycin Trough Random Vancomycin SARS-CoV-2 (PCR) COVID-19 ([facility]) COVID-19 Clin Com 06/29/20 06/30/20 06/30/20 20:37 06:06 06:06 WBC 23.2 H RBC 3.04 L Hgb 8.5 L Hct 27.0 L MCV 88.8 MCH 28.0 MCHC 31.5 RDW 13.8 Plt Count 241 D MPV 11.8 Immature Gran % (Auto) Cancelled Neut % (Auto) Cancelled Lymph % (Auto) Cancelled [place] % (Auto) Cancelled Eos % (Auto) Cancelled Baso % (Auto) Cancelled Lymph # (Auto) Cancelled [place] # (Auto) Cancelled Eos # (Auto) Cancelled Baso # (Auto) Cancelled Abs Immat Gran (auto) Cancelled Absolute Neuts (auto) Cancelled Absolute Nucleated RBC 0.020 H Nucleated RBC % (auto) 0.1 Neutrophils % (Manual) 77 H Band Neutrophils % 0 L Lymphocytes % (Manual) 12 L Atypical Lymphs % (Man) Monocytes % (Manual) 10 Eosinophils % (Manual) Metamyelocytes % 1 Myelocytes % Abs Neuts (Manual) 17.9 H Lymphocytes # (Manual) 2.8 Atyp Lymphs # (Manual) Monocytes # (Manual) 2.3 H Eosinophils # (Manual) Metamyelocytes # 0.2 Myelocytes # Platelet Estimate NORMAL Plt Morphology Comment NORMAL RBC Morphology NORMAL Polychromasia Hypochromasia Microcytosis 1+ [place] Cells D-Dimer Sodium 138 Potassium 3.6 Chloride 109 H Carbon Dioxide 15 L Anion Gap 18 BUN 11 Creatinine 1.12 Estim Creat Clear Calc 53.8 Estimated GFR 49 POC Glucose 139 H Random Glucose 165 H D Lactic Acid Lactic Acid Fup @ 2Hr Lactic Acid Fup @ 4Hr Calcium 7.8 L Magnesium Iron TIBC % Saturation Unsat Iron Binding Ferritin Total Bilirubin 0.2 Direct Bilirubin < 0.2 AST 22 ALT 18 Alkaline Phosphatase 98 Lactate Dehydrogenase Total Creatine Kinase Troponin I High Sens C-Reactive Protein B-Natriuretic Peptide Total Protein 6.2 L Albumin 2.8 L Vitamin B12 Folate TSH Urine Color Urine Appearance Urine pH Ur Specific [place] Urine Protein Urine Glucose (UA) Urine Ketones Urine Blood Urine Nitrite Ur Leukocyte Esterase Urine RBC Urine WBC Ur Squamous Epith Cells Urine Crystals Urine Bacteria Stool Occult Blood Vancomycin Trough Random Vancomycin SARS-CoV-2 (PCR) COVID-19 ([facility]) COVID-19 Clin Com 06/30/20 06/30/20 06/30/20 08:03 11:24 16:02 WBC RBC Hgb Hct MCV MCH MCHC RDW Plt Count MPV Immature Gran % (Auto) Neut % (Auto) Lymph % (Auto) [place] % (Auto) Eos % (Auto) Baso % (Auto) Lymph # (Auto) [place] # (Auto) Eos # (Auto) Baso # (Auto) Abs Immat Gran (auto) Absolute Neuts (auto) Absolute Nucleated RBC Nucleated RBC % (auto) Neutrophils % (Manual) Band Neutrophils % Lymphocytes % (Manual) Atypical Lymphs % (Man) Monocytes % (Manual) Eosinophils % (Manual) Metamyelocytes % Myelocytes % Abs Neuts (Manual) Lymphocytes # (Manual) Atyp Lymphs # (Manual) Monocytes # (Manual) Eosinophils # (Manual) Metamyelocytes # Myelocytes # Platelet Estimate Plt Morphology Comment RBC Morphology Polychromasia Hypochromasia Microcytosis [place] Cells D-Dimer Sodium Potassium Chloride Carbon Dioxide Anion Gap BUN Creatinine Estim Creat Clear Calc Estimated GFR POC Glucose 196 H 197 H Random Glucose Lactic Acid Lactic Acid Fup @ 2Hr Lactic Acid Fup @ 4Hr Calcium Magnesium Iron TIBC % Saturation Unsat Iron Binding Ferritin Total Bilirubin Direct Bilirubin AST ALT Alkaline Phosphatase Lactate Dehydrogenase Total Creatine Kinase Troponin I High Sens C-Reactive Protein B-Natriuretic Peptide Total Protein Albumin Vitamin B12 Folate TSH Urine Color Urine Appearance Urine pH Ur Specific [place] Urine Protein Urine Glucose (UA) Urine Ketones Urine Blood Urine Nitrite Ur Leukocyte Esterase Urine RBC Urine WBC Ur Squamous Epith Cells Urine Crystals Urine Bacteria Stool Occult Blood Vancomycin Trough Random Vancomycin 8.2 L SARS-CoV-2 (PCR) COVID-19 ([facility]) COVID-19 Clin Com 06/30/20 06/30/20 07/01/20 16:52 21:08 04:51 WBC 16.1 H RBC 2.82 L Hgb 8.0 L Hct 25.4 L MCV 90.1 MCH 28.4 MCHC 31.5 RDW 14.2 Plt Count 297 MPV 10.7 Immature Gran % (Auto) Cancelled Neut % (Auto) Cancelled Lymph % (Auto) Cancelled [place] % (Auto) Cancelled Eos % (Auto) Cancelled Baso % (Auto) Cancelled Lymph # (Auto) Cancelled [place] # (Auto) Cancelled Eos # (Auto) Cancelled Baso # (Auto) Cancelled Abs Immat Gran (auto) Cancelled Absolute Neuts (auto) Cancelled Absolute Nucleated RBC 0.000 Nucleated RBC % (auto) 0.0 Neutrophils % (Manual) 73 Band Neutrophils % 0 L Lymphocytes % (Manual) 14 L Atypical Lymphs % (Man) Monocytes % (Manual) 7 Eosinophils % (Manual) 2 Metamyelocytes % 3 Myelocytes % 1 Abs Neuts (Manual) 11.8 H Lymphocytes # (Manual) 2.3 Atyp Lymphs # (Manual) Monocytes # (Manual) 1.1 Eosinophils # (Manual) 0.3 Metamyelocytes # 0.5 Myelocytes # 0.2 Platelet Estimate NORMAL Plt Morphology Comment NORMAL RBC Morphology NORMAL Polychromasia Hypochromasia Microcytosis [place] Cells D-Dimer Sodium Potassium Chloride Carbon Dioxide Anion Gap BUN Creatinine Estim Creat Clear Calc Estimated GFR POC Glucose 197 H 167 H Random Glucose Lactic Acid Lactic Acid Fup @ 2Hr Lactic Acid Fup @ 4Hr Calcium Magnesium Iron TIBC % Saturation Unsat Iron Binding Ferritin Total Bilirubin Direct Bilirubin AST ALT Alkaline Phosphatase Lactate Dehydrogenase Total Creatine Kinase Troponin I High Sens C-Reactive Protein B-Natriuretic Peptide Total Protein Albumin Vitamin B12 Folate TSH Urine Color Urine Appearance Urine pH Ur Specific [place] Urine Protein Urine Glucose (UA) Urine Ketones Urine Blood Urine Nitrite Ur Leukocyte Esterase Urine RBC Urine WBC Ur Squamous Epith Cells Urine Crystals Urine Bacteria Stool Occult Blood Vancomycin Trough Random Vancomycin SARS-CoV-2 (PCR) COVID-19 ([facility]) COVID-19 Clin Com 07/01/20 07/01/20 07/01/20 04:51 07:48 10:56 WBC RBC Hgb Hct MCV MCH MCHC RDW Plt Count MPV Immature Gran % (Auto) Neut % (Auto) Lymph % (Auto) [place] % (Auto) Eos % (Auto) Baso % (Auto) Lymph # (Auto) [place] # (Auto) Eos # (Auto) Baso # (Auto) Abs Immat Gran (auto) Absolute Neuts (auto) Absolute Nucleated RBC Nucleated RBC % (auto) Neutrophils % (Manual) Band Neutrophils % Lymphocytes % (Manual) Atypical Lymphs % (Man) Monocytes % (Manual) Eosinophils % (Manual) Metamyelocytes % Myelocytes % Abs Neuts (Manual) Lymphocytes # (Manual) Atyp Lymphs # (Manual) Monocytes # (Manual) Eosinophils # (Manual) Metamyelocytes # Myelocytes # Platelet Estimate Plt Morphology Comment RBC Morphology Polychromasia Hypochromasia Microcytosis [place] Cells D-Dimer Sodium 136 Potassium 3.6 Chloride 109 H Carbon Dioxide 16 L Anion Gap 15 BUN 10 Creatinine 0.95 Estim Creat Clear Calc 63.4 Estimated GFR 59 POC Glucose 160 H 224 H Random Glucose 153 H Lactic Acid Lactic Acid Fup @ 2Hr Lactic Acid Fup @ 4Hr Calcium 7.4 L Magnesium Iron TIBC % Saturation Unsat Iron Binding Ferritin Total Bilirubin Direct Bilirubin AST ALT Alkaline Phosphatase Lactate Dehydrogenase Total Creatine Kinase Troponin I High Sens C-Reactive Protein B-Natriuretic Peptide Total Protein Albumin Vitamin B12 Folate TSH Urine Color Urine Appearance Urine pH Ur Specific [place] Urine Protein Urine Glucose (UA) Urine Ketones Urine Blood Urine Nitrite Ur Leukocyte Esterase Urine RBC Urine WBC Ur Squamous Epith Cells Urine Crystals Urine Bacteria Stool Occult Blood Vancomycin Trough Random Vancomycin SARS-CoV-2 (PCR) COVID-19 ([facility]) COVID-19 Clin Com 07/01/20 07/01/20 07/02/20 15:57 19:26 08:05 WBC RBC Hgb 8.7 L Hct 27.3 L MCV MCH MCHC RDW Plt Count MPV Immature Gran % (Auto) Neut % (Auto) Lymph % (Auto) [place] % (Auto) Eos % (Auto) Baso % (Auto) Lymph # (Auto) [place] # (Auto) Eos # (Auto) Baso # (Auto) Abs Immat Gran (auto) Absolute Neuts (auto) Absolute Nucleated RBC Nucleated RBC % (auto) Neutrophils % (Manual) Band Neutrophils % Lymphocytes % (Manual) Atypical Lymphs % (Man) Monocytes % (Manual) Eosinophils % (Manual) Metamyelocytes % Myelocytes % Abs Neuts (Manual) Lymphocytes # (Manual) Atyp Lymphs # (Manual) Monocytes # (Manual) Eosinophils # (Manual) Metamyelocytes # Myelocytes # Platelet Estimate Plt Morphology Comment RBC Morphology Polychromasia Hypochromasia Microcytosis [place] Cells D-Dimer Sodium Potassium Chloride Carbon Dioxide Anion Gap BUN Creatinine Estim Creat Clear Calc Estimated GFR POC Glucose 324 H 264 H Random Glucose Lactic Acid Lactic Acid Fup @ 2Hr Lactic Acid Fup @ 4Hr Calcium Magnesium Iron TIBC % Saturation Unsat Iron Binding Ferritin Total Bilirubin Direct Bilirubin AST ALT Alkaline Phosphatase Lactate Dehydrogenase Total Creatine Kinase Troponin I High Sens C-Reactive Protein B-Natriuretic Peptide Total Protein Albumin Vitamin B12 Folate TSH Urine Color Urine Appearance Urine pH Ur Specific [place] Urine Protein Urine Glucose (UA) Urine Ketones Urine Blood Urine Nitrite Ur Leukocyte Esterase Urine RBC Urine WBC Ur Squamous Epith Cells Urine Crystals Urine Bacteria Stool Occult Blood Vancomycin Trough Random Vancomycin SARS-CoV-2 (PCR) COVID-19 ([facility]) COVID-19 Clin Com 07/02/20 07/02/20 07/02/20 08:05 08:05 09:25 WBC RBC Hgb Hct MCV MCH MCHC RDW Plt Count MPV Immature Gran % (Auto) Neut % (Auto) Lymph % (Auto) [place] % (Auto) Eos % (Auto) Baso % (Auto) Lymph # (Auto) [place] # (Auto) Eos # (Auto) Baso # (Auto) Abs Immat Gran (auto) Absolute Neuts (auto) Absolute Nucleated RBC Nucleated RBC % (auto) Neutrophils % (Manual) Band Neutrophils % Lymphocytes % (Manual) Atypical Lymphs % (Man) Monocytes % (Manual) Eosinophils % (Manual) Metamyelocytes % Myelocytes % Abs Neuts (Manual) Lymphocytes # (Manual) Atyp Lymphs # (Manual) Monocytes # (Manual) Eosinophils # (Manual) Metamyelocytes # Myelocytes # Platelet Estimate Plt Morphology Comment RBC Morphology Polychromasia Hypochromasia Microcytosis [place] Cells D-Dimer Sodium 136 Potassium 3.8 Chloride 106 Carbon Dioxide 21 L Anion Gap 13 BUN 11 Creatinine 1.07 Estim Creat Clear Calc 56.4 Estimated GFR 51 POC Glucose 157 H Random Glucose 142 H Lactic Acid Lactic Acid Fup @ 2Hr Lactic Acid Fup @ 4Hr Calcium 8.0 L D Magnesium Iron TIBC % Saturation Unsat Iron Binding Ferritin Total Bilirubin Direct Bilirubin AST ALT Alkaline Phosphatase Lactate Dehydrogenase Total Creatine Kinase Troponin I High Sens C-Reactive Protein B-Natriuretic Peptide Total Protein Albumin Vitamin B12 Folate TSH Urine Color Urine Appearance Urine pH Ur Specific [place] Urine Protein Urine Glucose (UA) Urine Ketones Urine Blood Urine Nitrite Ur Leukocyte Esterase Urine RBC Urine WBC Ur Squamous Epith Cells Urine Crystals Urine Bacteria Stool Occult Blood NEG Vancomycin Trough Random Vancomycin SARS-CoV-2 (PCR) COVID-19 ([facility]) COVID-19 Clin Com 07/02/20 07/02/20 07/02/20 11:01 16:45 20:20 WBC RBC Hgb Hct MCV MCH MCHC RDW Plt Count MPV Immature Gran % (Auto) Neut % (Auto) Lymph % (Auto) [place] % (Auto) Eos % (Auto) Baso % (Auto) Lymph # (Auto) [place] # (Auto) Eos # (Auto) Baso # (Auto) Abs Immat Gran (auto) Absolute Neuts (auto) Absolute Nucleated RBC Nucleated RBC % (auto) Neutrophils % (Manual) Band Neutrophils % Lymphocytes % (Manual) Atypical Lymphs % (Man) Monocytes % (Manual) Eosinophils % (Manual) Metamyelocytes % Myelocytes % Abs Neuts (Manual) Lymphocytes # (Manual) Atyp Lymphs # (Manual) Monocytes # (Manual) Eosinophils # (Manual) Metamyelocytes # Myelocytes # Platelet Estimate Plt Morphology Comment RBC Morphology Polychromasia Hypochromasia Microcytosis [place] Cells D-Dimer Sodium Potassium Chloride Carbon Dioxide Anion Gap BUN Creatinine Estim Creat Clear Calc Estimated GFR POC Glucose 233 H 208 H 193 H Random Glucose Lactic Acid Lactic Acid Fup @ 2Hr Lactic Acid Fup @ 4Hr Calcium Magnesium Iron TIBC % Saturation Unsat Iron Binding Ferritin Total Bilirubin Direct Bilirubin AST ALT Alkaline Phosphatase Lactate Dehydrogenase Total Creatine Kinase Troponin I High Sens C-Reactive Protein B-Natriuretic Peptide Total Protein Albumin Vitamin B12 Folate TSH Urine Color Urine Appearance Urine pH Ur Specific [place] Urine Protein Urine Glucose (UA) Urine Ketones Urine Blood Urine Nitrite Ur Leukocyte Esterase Urine RBC Urine WBC Ur Squamous Epith Cells Urine Crystals Urine Bacteria Stool Occult Blood Vancomycin Trough Random Vancomycin SARS-CoV-2 (PCR) COVID-19 ([facility]) COVID-19 Clin Com 07/03/20 07:29 WBC RBC Hgb Hct MCV MCH MCHC RDW Plt Count MPV Immature Gran % (Auto) Neut % (Auto) Lymph % (Auto) [place] % (Auto) Eos % (Auto) Baso % (Auto) Lymph # (Auto) [place] # (Auto) Eos # (Auto) Baso # (Auto) Abs Immat Gran (auto) Absolute Neuts (auto) Absolute Nucleated RBC Nucleated RBC % (auto) Neutrophils % (Manual) Band Neutrophils % Lymphocytes % (Manual) Atypical Lymphs % (Man) Monocytes % (Manual) Eosinophils % (Manual) Metamyelocytes % Myelocytes % Abs Neuts (Manual) Lymphocytes # (Manual) Atyp Lymphs # (Manual) Monocytes # (Manual) Eosinophils # (Manual) Metamyelocytes # Myelocytes # Platelet Estimate Plt Morphology Comment RBC Morphology Polychromasia Hypochromasia Microcytosis [place] Cells D-Dimer Sodium Potassium Chloride Carbon Dioxide Anion Gap BUN Creatinine Estim Creat Clear Calc Estimated GFR POC Glucose 222 H Random Glucose Lactic Acid Lactic Acid Fup @ 2Hr Lactic Acid Fup @ 4Hr Calcium Magnesium Iron TIBC % Saturation Unsat Iron Binding Ferritin Total Bilirubin Direct Bilirubin AST ALT Alkaline Phosphatase Lactate Dehydrogenase Total Creatine Kinase Troponin I High Sens C-Reactive Protein B-Natriuretic Peptide Total Protein Albumin Vitamin B12 Folate TSH Urine Color Urine Appearance Urine pH Ur Specific [place] Urine Protein Urine Glucose (UA) Urine Ketones Urine Blood Urine Nitrite Ur Leukocyte Esterase Urine RBC Urine WBC Ur Squamous Epith Cells Urine Crystals Urine Bacteria Stool Occult Blood Vancomycin Trough Random Vancomycin SARS-CoV-2 (PCR) COVID-19 ([facility]) COVID-19 Clin Com Airway Mallampati Class: IV TM Dist: <=3cm Neck ROM: Limited Heart: RRR Lungs: CTA Assessment and Plan Assessment Anesthesia Assessment: Anesthesia Plan Discussed and Chart Reviewed Final Anesthetic Review NPO: Yes ASA Class: III Final Preanesthetic Review: Meds/Allgs Chart Reviewed, Consent Obtained/Reviewed and Anes Risks/Benef Reviewed Patient Risk: Intermediate Procedure Risk: Low Anesthetic Plan Anesthetic Plan: MAC: and Regional Block (ankle block) Disposition: Standard PACU
[2020-07-03 08:59] LABS: Hematocrit 28.5 % (37-47); Mean Corpuscular HGB Conc 31.6 g/dl (31.0-35.0); Mean Corpuscular Volume 88.8 fL (80-98); Platelet Count 412 X10*3/uL (160-400); Red Blood Count 3.21 X10*6/uL (4.20-5.50); Red Cell Distribution Width 14.6 % (11.0-16.0); White Blood Count 14.3 X10*3/uL (4.8-10.8)
[2020-07-03 09:37] LABS: Anion Gap 13 (12-20); Blood Urea Nitrogen 9 mg/dL (9-16); Carbon Dioxide 21 mmol/L (22-29); Chloride 105 mmol/L (96-108); Creatinine Clr Calc Pharmacy 56.3; Estimated Glomerular Filt Rate 50; Glucose Random 219 mg/dL (60-115); Potassium 3.7 mmol/l (3.3-5.1); Sodium 135 mmol/L (135-145)
--- NOTE | 2020-07-03 09:37 | MHC.SHP ---
Pre-Procedural Eval Section A The patient is an INPATIENT: Yes Section B Chief Complaint: HYPERNATREMIA, RHABDOMYOLYSIS, FREQUENT FALLS Allergies: Allergies Allergy/AdvReac Type Severity Reaction Status Date / Time chlorthalidone Allergy Unknown ACUTE Verified 06/20/20 11:43 [CHLORTHALIDONE] RENAL FAILURE Iodine and Iodide Containing Allergy Unknown UNKNOWN Verified 06/20/20 11:43 Produc [IODINE AND IODIDE CONTAINING PRODUC] levofloxacin [From LEVAQUIN] AdvReac Unknown NAUSEA & Verified 06/20/20 11:43 VOMITING Penicillins [PENICILLINS] AdvReac Unknown RASH Verified 06/20/20 11:43 Sulfa (Sulfonamide AdvReac Unknown RASH Verified 06/20/20 11:43 Antibiotics) [SULFA (SULFONAMIDE ANTIBIOTICS)] TAPE,PAPER Allergy Unknown UNKNOWN Uncoded 03/28/20 18:54 Plan Diagnosis/Plan: Unchanged I have reviewed the history and physical and performed a pertinent physical examination on my patient. No changes have occurred unless specified.
[2020-07-03 10:37] LABS: CDIFF Ag Negative (Negative); CDIFF Internal ctrl Dots and bkg OK (V); CDiff Toxin Negative (Negative)
--- NOTE | 2020-07-03 11:01 | P.OP_ITS ---
Operative Note Operative Note Date of Service: 07/03/20 Narrative: Preoperative diagnosis: Osteomyelitis left 1st metatarsal head with ulceration Postoperative diagnosis: Same Procedure: Transmetatarsal amputation left 1st toe Rehab Technician: Kevan Edgar Anesthesia: Ankle block and monitored anesthesia care Specimen: Left 1st toe and metatarsal head Estimated blood loss: 25 cc Immediate complications: None Indications: This is a 65-year-old female with a history of diabetes mellitus and peripheral neuropathy who has a longstanding ulceration on the plantar aspect of the left 1st metatarsal head. There was exposed bone and osteomyelitis. Amputation of the transmetatarsal level is planned. Procedure detail: With patient in the supine position after obtaining adequate ankle block and sedation, time-out procedure was performed. The left foot and lower leg were prepped with ChloraPrep and were draped sterilely. Incision lines were marked on the skin extending from the medial aspect of the left 1st metatarsal and circling the yet area of ulceration and surrounding the base of the left 1st toe. Incision was made and was carried into the subcutaneous tissues and down to the level of the bone. The elevator was then employed to free the shaft of the left 1st metatarsal along the medial, superior and inferior aspect. In order to access the medial aspect, disarticulation of the left 1st toe was carried out at the level of the MP joint. The joint capsule was incised circumferentially of the 1st toe was removed. The lateral aspect of the shaft of the left 1st metatarsal was then freed from soft tissue attachments using the elevator. The saw was employed to divide the shaft of the left 1st metatarsal at about the junction of the proximal and mid 3rd. A rongeur was not used along the medial aspect to remove sharp edges of bone and the bone file was then employed to further smooth the edges. The wound was irrigated with saline solution. Bleeding was controlled with the electrosurgical pencil along soft tissue bleeding points. The sesamoid bones were then removed using a combination of scalpel and run sure dissection. The wound was again irrigated with saline solution. No significant bleeding was noted. Subcutaneous tissues were reapproximated loosely using interrupted sutures of 3-0 Polysorb. Skin was closed using interrupted simple and mattress sutures of 3-0 nylon. A quarter- inch [place] drain was placed through the distal aspect of the incision down to the level of the divided 1st metatarsal and was sutured in place with 3 0 nylon. A bulky dry sterile dressing was then applied. She tolerated the procedure we ll and was transported to the recovery room in stable condition. There were no immediate complications.
--- NOTE | 2020-07-03 13:06 | MHC.CM.PN ---
Patient received TMA of (L) 1st toe and is receiving IV Ceftriaxone. STR @ [facility] @ [facility] [place] is the goal for dc and CM will continue to follow for dc planning and possible need to adjust the dc plan.
[2020-07-03 13:26] LABS: Glucose, Whole Blood 182 mg/dL (60-115)
[2020-07-03 16:25] LABS: Glucose, Whole Blood 186 mg/dL (60-115)
[2020-07-03] MEDS: Insulin Lispro 100 UNIT/ML 3 ML VIAL SUBCUT ×2 (17:12→21:28)
[2020-07-03] MEDS: 0.9 % Sodium Chloride Flush 3 ML SYRINGE IVFLUSH (17:12)
[2020-07-03] MEDS: cefTRIAXone sodium 1 GM in 0.9 % Sodium Chloride 50 ML IV (17:13)
[2020-07-03] MEDS: Enoxaparin Sodium 100 MG/ML SYRINGE 80 MG SUBCUT (20:06)
[2020-07-03] MEDS: Throat Lozenge, Medicated LOZENGE 1 LOZENGE MUCOUS MEM (20:07)
[2020-07-03] MEDS: Atorvastatin Calcium 10 MG TABLET PO (20:07)
[2020-07-03] MEDS: Aspirin Enteric Coated 81 MG TABLET.DR PO (20:07)
[2020-07-03] MEDS: risperiDONE 0.25 MG TABLET PO (20:07)
[2020-07-03 21:16] LABS: Glucose, Whole Blood 225 mg/dL (60-115)
[2020-07-03] MEDS: Insulin Glargine,Hum.rec.anlog 100 UNIT/ML 10 ML VIAL 20 UNIT SUBCUT (21:28)
[2020-07-04] VITALS (12 sets, daily range): BP systolic 125–178; BP diastolic 62–97; PULSE 81–116; RESP 18–22; TEMP 36.4–37; O2SAT 93–99
[2020-07-04] MEDS: oxyCODONE HCl Immed Release 5 MG TABLET PO ×2 (00:20→11:54)
[2020-07-04] MEDS: 0.9 % Sodium Chloride Flush 3 ML SYRINGE IVFLUSH ×4 (00:47→20:15)
--- NOTE | 2020-07-04 02:47 | ECG_ITS ---
Test Reason : coverted to afib Blood Pressure : / mmHG Vent. Rate : 127 BPM Atrial Rate : 166 BPM P-R Int : 000 ms QRS Dur : 086 ms QT Int : 320 ms P-R-T Axes : 000 018 217 degrees QTc Int : 465 ms Atrial fibrillation with rapid ventricular response Nonspecific ST and T wave abnormality Abnormal ECG No previous ECGs available Referred By: Jojo Mendoza Electronically Signed By:STEFANY MAYS MD
[2020-07-04] MEDS: Metoprolol Tartrate 5 MG/5 ML VIAL IVPUSH (04:16)
[2020-07-04] MEDS: Levothyroxine Sodium 75 MCG TABLET PO (05:53)
[2020-07-04] MEDS: Omeprazole 20 MG CAPSULE.DR PO (05:53)
[2020-07-04 07:34] LABS: Glucose, Whole Blood 189 mg/dL (60-115)
[2020-07-04] MEDS: Insulin Lispro 100 UNIT/ML 3 ML VIAL SUBCUT ×4 (08:00→20:14)
[2020-07-04] MEDS: Enoxaparin Sodium 100 MG/ML SYRINGE 80 MG SUBCUT ×2 (08:01→20:12)
[2020-07-04] MEDS: Sodium Bicarbonate 650 MG TABLET PO ×2 (08:02→20:13)
[2020-07-04] MEDS: amLODIPine Besylate 10 MG TABLET PO (08:03)
[2020-07-04] MEDS: Metoprolol Succinate ER 50 MG TAB.ER.24H PO (08:03)
[2020-07-04] MEDS: DULoxetine HCl 60 MG CAPSULE.DR PO (08:03)
[2020-07-04] MEDS: Losartan Potassium 50 MG TABLET PO (08:03)
--- NOTE | 2020-07-04 09:35 | PM.PNGS ---
Subjective Subjective Date of Service: 07/04/20 Interval history: No complaints, rapid atrial fibrillation developed during night. Asymptomatic. Physical Exam Vital Signs: Vital Signs: Last Vital Signs Temp 97.7 F 07/04/20 07:52 Pulse 110 H 07/04/20 08:03 Resp 20 07/04/20 07:52 BP 178/97 H 07/04/20 08:03 Pulse Ox 98 07/04/20 07:52 Body Mass Index 32.3 Const: General: cooperative, no acute distress and alert Extrem: Other: Left 1st toe transmetatarsal amputation site is clean. Juan drain is intact. Minimal bloody drainage present on dressing. Chronic ulcer plantar aspect right heel approximately 2 cm in diameter, somewhat dry. Progress Note: A&P Assessment and plan (1) Acute osteomyelitis of metatarsal bone of left foot: Problem details: Plantar ulcer and osteomyelitis left 1st metatarsal head Status: Acute Assessment and Plan: Left 1st toe transmetatarsal amputation site is clean. Will keep Juan drain in place for another 24-48 hours. Needs to stay nonweightbearing for now. Ultimately, will be able to ambulate initially with offloading shoe. Should have pressure relief for right heel as well. Continue antibiotics, ceftriaxone. Fall Risk Details Current Medications: Current Medications Generic Name Dose Route Start Last Admin Trade Name Freq PRN Reason Stop Dose Admin Acetaminophen 650 mg 06/20/20 06:39 07/03/20 20:07 Acetaminophen 325 Mg Tablet PO 650 mg Q6H PRN Administration Pain, Mild (Pain Scale 1-3) Amlodipine Besylate 10 mg 06/20/20 09:00 07/04/20 08:03 Amlodipine Besylate 10 Mg Tablet PO 10 mg DAILY [facility] Administration Protocol Aspirin 81 mg 06/23/20 21:00 07/03/20 20:07 Aspirin Enteric Coated 81 Mg Tablet.Dr PO 81 mg BEDTIME [facility] Administration Atorvastatin Calcium 10 mg 06/20/20 21:00 07/03/20 20:07 Atorvastatin Calcium 10 Mg Tablet PO 10 mg BEDTIME [facility] Administration Benzocaine 1 lozenge 06/30/20 13:58 07/03/20 20:07 Throat Lozenge, Medicated Lozenge MUCOUS MEM 1 lozenge Q2H PRN Administration Sore Throat Docusate Sodium 100 mg 06/20/20 06:39 Docusate Sodium 100 Mg Capsule PO DAILY PRN Constipation Docusate Sodium 100 mg 06/24/20 21:00 07/04/20 08:05 Docusate Sodium 100 Mg Capsule PO Not Given BID [facility] Duloxetine HCl 60 mg 06/20/20 09:00 07/04/20 08:03 Duloxetine Hcl 60 Mg Capsule. PO 60 mg DAILY [facility] Administration Enoxaparin Sodium 80 mg 06/24/20 09:00 07/04/20 08:01 Enoxaparin Sodium 100 Mg/Ml Syringe SUBCUT 80 mg Q12H [facility] Administration Ceftriaxone Sodium 1 gm/ 50 mls @ 100 mls/hr 06/29/20 18:00 07/03/20 18:07 Sodium Chloride IV Infused Q24H [facility] Infusion Insulin Glargine 20 unit 06/29/20 21:00 07/03/20 21:28 Insulin Glargine,Hum.Rec.Anlog 100 Unit/Ml 10 Ml Vial SUBCUT 20 unit BEDTIME [facility] Administration Insulin Human Lispro 0 unit 06/20/20 07:30 07/04/20 08:00 Insulin Lispro 100 Unit/Ml 3 Ml Vial SUBCUT 2 unit QIDACHS [facility] Administration Protocol Levothyroxine Sodium 75 mcg 06/24/20 06:00 07/04/20 05:53 Levothyroxine Sodium 75 Mcg Tablet PO 75 mcg DAILY@0600 [facility] Administration Losartan Potassium 50 mg 06/20/20 09:00 07/04/20 08:03 Losartan Potassium 50 Mg Tablet PO 50 mg DAILY [facility] Administration Protocol Metoprolol Succinate 50 mg 07/01/20 16:45 07/04/20 08:03 Metoprolol Succinate Er 50 Mg Tab.Er.24h PO 50 mg DAILY [facility] Administration Protocol Omeprazole 20 mg 06/20/20 07:30 07/04/20 05:53 Omeprazole 20 Mg Capsule. PO 20 mg DAILY@0630 [facility] Administration Ondansetron HCl 4 mg 06/20/20 06:39 06/30/20 15:56 Ondansetron Hcl 4 Mg/2 Ml Vial IVPUSH 4 mg Q8H PRN Administration Nausea and Vomiting Oxycodone HCl 5 mg 07/03/20 11:11 07/04/20 00:20 Oxycodone Hcl Immed Release 5 Mg Tablet PO 5 mg Q4H PRN Administration Pain, Moderate (Pain Scale 4-6 Pharmacy Consult 1 each 06/20/20 03:31 Consult Rx Perform Med Rec MISCELLANE ONCE PRN Consult order Pharmacy Consult 1 each 06/28/20 16:02 Consult Rx Vancomycin Dosing MISCELLANE DAILY PRN Consult order Polyethylene Glycol 17 gm 06/25/20 10:25 07/04/20 08:05 Polyethylene Glycol 3350 17 Gm Powd.Pack PO Not Given DAILY [facility] Risperidone 0.25 mg 06/22/20 21:00 07/03/20 20:07 Risperidone 0.25 Mg Tablet PO 0.25 mg BEDTIME [facility] Administration Sodium Bicarbonate 650 mg 06/30/20 09:00 07/04/20 08:02 Sodium Bicarbonate 650 Mg Tablet PO 650 mg BID [facility] Administration Sodium Chloride 3 ml 06/20/20 08:00 07/04/20 08:04 0.9 % Sodium Chloride Flush 3 Ml Syringe IVFLUSH 3 ml QSHIFT [facility] Administration Trazodone HCl 50 mg 06/20/20 06:43 07/01/20 21:54 Trazodone Hcl 50 Mg Tablet PO 50 mg BEDTIME PRN Administration insomnia Time Spent With Patient Time: Total time spent is greater than 50% in coordination of care (as documented) at patient's floor/unit and/or counseling patient: Time with patient: 15 - 24 minutes
--- NOTE | 2020-07-04 09:53 | HO.POSTANES ---
Post Anesthesia Evaluation Post Anesthesia Evaluation Vital Signs: Vital Signs Temp Pulse Resp BP Pulse Ox 07/04/20 08:03 110 H 178/97 H 07/04/20 07:52 97.7 F 110 H 20 178/97 H 98 07/04/20 04:16 114 H 155/85 H 07/04/20 04:00 97.8 F 116 H 19 155/85 H 99 07/03/20 23:23 97.8 F 97 18 140/67 H 96 Anesthesia: Monitored Mental Status: Awake Pain Control: Satisfactory Nausea/Vomiting: None Hydration: Adequate Anesthesia-Related Issues: No Anes. Related Issues
[2020-07-04 10:11] LABS: Hematocrit 26.6 % (37-47); Hemoglobin 8.5 g/dl (12.0-16.0); Mean Corpuscular Hemoglobin 28.2 pg (27.0-33.0); Mean Corpuscular Volume 88.4 fL (80-98); Mean Platelet Volume 10.1 fL (9.4-12.3); Platelet Count 428 X10*3/uL (160-400); Red Blood Count 3.01 X10*6/uL (4.20-5.50); Red Cell Distribution Width 14.6 % (11.0-16.0); White Blood Count 17.6 X10*3/uL (4.8-10.8)
[2020-07-04] MEDS: dilTIAZem HCL 50 MG/10 ML VIAL IVPUSH (10:12)
[2020-07-04 10:23] LABS: Anion Gap 13 (12-20); Blood Urea Nitrogen 9 mg/dL (9-16); Carbon Dioxide 23 mmol/L (22-29); Chloride 102 mmol/L (96-108); Creatinine Clr Calc Pharmacy 57.3; Estimated Glomerular Filt Rate 51; Glucose Random 269 mg/dL (60-115); Potassium 3.4 mmol/l (3.3-5.1); Sodium 135 mmol/L (135-145)
[2020-07-04] MEDS: Throat Lozenge, Medicated LOZENGE 1 LOZENGE MUCOUS MEM ×2 (10:34→20:17)
[2020-07-04 11:32] LABS: Glucose, Whole Blood 292 mg/dL (60-115)
[2020-07-04] MEDS: dilTIAZem HCL 125 MG in 0.9 % Sodium Chloride 100 ML IVCONT (11:53)
[2020-07-04 16:07] LABS: Glucose, Whole Blood 207 mg/dL (60-115)
[2020-07-04] MEDS: cefTRIAXone sodium 1 GM in 0.9 % Sodium Chloride 50 ML IV (17:12)
--- NOTE | 2020-07-04 18:14 | P.PNIM_ITS ---
Subjective Subjective Date of Service: 07/04/20 Interval History: afib and foot infection Review of Systems Patient still has tachycardia, denies any chest pain or abdominal pain or fever or chills she says that her foot pain is also improving after surgery. Physical Exam Vital Signs: Vital Signs: Last Vital Signs Temp 97.6 F 07/04/20 14:59 Pulse 81 07/04/20 14:59 Resp 20 07/04/20 14:59 BP 139/76 07/04/20 14:59 Pulse Ox 93 07/04/20 14:59 Body Mass Index 32.3 Physical exam: Cvs: rrr, [id number] , no murmur res: clear to auscultation ,no rhonchii or wheezing abd: no rebound or guarding ,nt, bs present. ext pulses present , no cyanosis Left 1st toe transmetatarsal amputation site is clean. Will keep [place] drain in place neuro: [email or web address] , nonfocal. Objective Data Current Medications Generic Name Dose Route Start Last Admin Trade Name Freq PRN Reason Stop Dose Admin Acetaminophen 650 mg 06/20/20 06:39 07/03/20 20:07 Acetaminophen 325 Mg Tablet PO 650 mg Q6H PRN Administration Pain, Mild (Pain Scale 1-3) Amlodipine Besylate 10 mg 06/20/20 09:00 07/04/20 08:03 Amlodipine Besylate 10 Mg Tablet PO 10 mg DAILY [facility] Administration Protocol Aspirin 81 mg 06/23/20 21:00 07/03/20 20:07 Aspirin Enteric Coated 81 Mg Tablet. PO 81 mg BEDTIME [facility] Administration Atorvastatin Calcium 10 mg 06/20/20 21:00 07/03/20 20:07 Atorvastatin Calcium 10 Mg Tablet PO 10 mg BEDTIME [facility] Administration Benzocaine 1 lozenge 06/30/20 13:58 07/04/20 10:34 Throat Lozenge, Medicated Lozenge MUCOUS MEM 1 lozenge Q2H PRN Administration Sore Throat Docusate Sodium 100 mg 06/20/20 06:39 Docusate Sodium 100 Mg Capsule PO DAILY PRN Constipation Docusate Sodium 100 mg 06/24/20 21:00 07/04/20 08:05 Docusate Sodium 100 Mg Capsule PO Not Given BID [facility] Duloxetine HCl 60 mg 06/20/20 09:00 07/04/20 08:03 Duloxetine Hcl 60 Mg Capsule. PO 60 mg DAILY [facility] Administration Enoxaparin Sodium 80 mg 06/24/20 09:00 07/04/20 08:01 Enoxaparin Sodium 100 Mg/Ml Syringe SUBCUT 80 mg Q12H [facility] Administration Ceftriaxone Sodium 1 gm/ 50 mls @ 100 mls/hr 06/29/20 18:00 07/04/20 17:12 Sodium Chloride IV 100 mls/hr Q24H [facility] Administration Diltiazem HCl 125 mg/ Sodium 125 mls @ 0 mls/hr 07/04/20 09:45 07/04/20 14:00 Chloride IVCONT 7.5 mg/hr .Q0M [facility] 7.5 mls/hr Titration Protocol Per Protocol Insulin Glargine 20 unit 06/29/20 21:00 07/03/20 21:28 Insulin Glargine,Hum.Rec.Anlog 100 Unit/Ml 10 Ml Vial SUBCUT 20 unit BEDTIME [facility] Administration Insulin Human Lispro 0 unit 06/20/20 07:30 07/04/20 17:13 Insulin Lispro 100 Unit/Ml 3 Ml Vial SUBCUT 4 unit QIDACHS [facility] Administration Protocol Levothyroxine Sodium 75 mcg 06/24/20 06:00 07/04/20 05:53 Levothyroxine Sodium 75 Mcg Tablet PO 75 mcg DAILY@0600 [facility] Administration Losartan Potassium 50 mg 06/20/20 09:00 07/04/20 08:03 Losartan Potassium 50 Mg Tablet PO 50 mg DAILY [facility] Administration Protocol Metoprolol Succinate 50 mg 07/01/20 16:45 07/04/20 08:03 Metoprolol Succinate Er 50 Mg Tab.Er.24h PO 50 mg DAILY [facility] Administration Protocol Omeprazole 20 mg 06/20/20 07:30 07/04/20 05:53 Omeprazole 20 Mg Capsule. PO 20 mg DAILY@0630 [facility] Administration Ondansetron HCl 4 mg 06/20/20 06:39 06/30/20 15:56 Ondansetron Hcl 4 Mg/2 Ml Vial IVPUSH 4 mg Q8H PRN Administration Nausea and Vomiting Oxycodone HCl 5 mg 07/03/20 11:11 07/04/20 11:54 Oxycodone Hcl Immed Release 5 Mg Tablet PO 5 mg Q4H PRN Administration Pain, Moderate (Pain Scale 4-6 Pharmacy Consult 1 each 06/20/20 03:31 Consult Rx Perform Med Rec MISCELLANE ONCE PRN Consult order Pharmacy Consult 1 each 06/28/20 16:02 Consult Rx Vancomycin Dosing MISCELLANE DAILY PRN Consult order Polyethylene Glycol 17 gm 06/25/20 10:25 07/04/20 08:05 Polyethylene Glycol 3350 17 Gm Powd.Pack PO Not Given DAILY [facility] Risperidone 0.25 mg 06/22/20 21:00 07/03/20 20:07 Risperidone 0.25 Mg Tablet PO 0.25 mg BEDTIME [facility] Administration Sodium Bicarbonate 650 mg 06/30/20 09:00 07/04/20 08:02 Sodium Bicarbonate 650 Mg Tablet PO 650 mg BID [facility] Administration Sodium Chloride 3 ml 06/20/20 08:00 07/04/20 17:12 0.9 % Sodium Chloride Flush 3 Ml Syringe IVFLUSH 3 ml QSHIFT [facility] Administration Trazodone HCl 50 mg 06/20/20 06:43 07/01/20 21:54 Trazodone Hcl 50 Mg Tablet PO 50 mg BEDTIME PRN Administration insomnia Labs CBC & Chem 7: 07/04/20 09:16 07/04/20 09:16 Microbiology Microbiology Results: Microbiology 06/28/20 20:21 Blood - Venous Blood Culture - Final No growth after 5 days. 06/28/20 20:14 Blood - Venous Blood Culture - Final No growth after 5 days. 06/24/20 15:31 Blood - Venous Blood Culture - Final No growth after 5 days. 06/24/20 15:31 Blood - Venous Blood Culture - Final No growth after 5 days. 06/23/20 07:37 Blood - Venous Blood Culture - Final Streptococcus intermedius 06/23/20 07:37 Blood - Venous Blood Culture - Final Streptococcus intermedius Assessment and Plan (1) Acute osteomyelitis of metatarsal bone of left foot: Problem details: Plantar ulcer and osteomyelitis left 1st metatarsal head Status: Acute (2) Sepsis: Status: Acute (3) Leukemoid reaction: Status: Acute (4) PAF (paroxysmal atrial fibrillation): Status: Acute (5) Gram-positive bacteremia: Status: Acute (6) Osteomyelitis of great toe of left foot: Status: Acute (7) Rhabdomyolysis: Status: Acute (8) FELIX (acute kidney injury): Status: Acute Assessment and Plan: This is a 65-year-old female with past medical history as mentioned above who presents to the hospital with complaints of frequent falls. Found to have rhabdomyolysis, FELIX. admitted for further management. 1.Sepsis likely secondary to infected foot ulcer and osteomyelitis leukocytosis initially improved but again worsening spiked fever on 06/28 reporting nausea and vomiting today intial Blood cultures growing Streptococcus intermidus repeat blood culture neg@48hrs Respiratory panel negative UA on admission was normal cdiff negative intially was on Vanco and Zosyn for 6 days switched to Rocephin per ID on . s/p 1st transmetatarsal amputation continue IV Rocephin 2.New onset atrial fibrillation with RVR Patient is still tachycardic, patient was given IV Cardizem, will adjust metoprolol 50 b.i.d. Continue Cardizem drip 3.Elevated D-dimer D-dimer elevated around 1999 Likely secondary to sepsis, kidney injury venous Doppler negative for DVT 4.FELIX, resolved secondary to rhabdomyolysis Monitor intake and output Monitor BMP 5.Microcytic anemia Patient reports having anemia before but she cannot remember the exact numbers, no baseline for comparison Hemoglobin of stable between 8-9 has normal MCV, denies melena or bright red blood per rectum Low iron level and saturation Normal ferritin level, B12, folic acid Stool for occult blood negative on07/02/20. 6.Multiple falls No evidence of syncope CT head negative for any acute findings likely multifactorial, diabetic neuropathy, postural hypotension, physical deconditioning Neurology input appreciated PT evaluation 7.Hyperglycemia secondary to diabetes mellitus: fs 180-200 range hold metformin Continue lantus and low-dose sliding scale insulin diabetic diet 8.hypertension continue amlodipine, losartan, 9.hypothyroidism continue levothyroxine DVT prophylaxis Lovenox
[2020-07-04 19:53] LABS: Glucose, Whole Blood 209 mg/dL (60-115)
[2020-07-04] MEDS: risperiDONE 0.25 MG TABLET PO (20:13)
[2020-07-04] MEDS: Atorvastatin Calcium 10 MG TABLET PO (20:13)
[2020-07-04] MEDS: Insulin Glargine,Hum.rec.anlog 100 UNIT/ML 10 ML VIAL 20 UNIT SUBCUT (20:13)
[2020-07-04] MEDS: Aspirin Enteric Coated 81 MG TABLET.DR PO (20:13)
[2020-07-04] MEDS: traZODone HCL 50 MG TABLET PO (20:17)
[2020-07-04] MEDS: Metoprolol Tartrate 50 MG TABLET PO (20:21)
[2020-07-04] MEDS: Acetaminophen 325 MG TABLET 650 MG PO (22:25)
[2020-07-05] VITALS (12 sets, daily range): BP systolic 125–165; BP diastolic 70–82; PULSE 85–106; RESP 18–20; TEMP 36.1–36.6; O2SAT 94–97
[2020-07-05] MEDS: oxyCODONE HCl Immed Release 5 MG TABLET PO ×3 (00:55→19:21)
[2020-07-05] MEDS: Omeprazole 20 MG CAPSULE.DR PO (06:13)
[2020-07-05] MEDS: Levothyroxine Sodium 75 MCG TABLET PO (06:14)
[2020-07-05] MEDS: dilTIAZem HCL 125 MG in 0.9 % Sodium Chloride 100 ML 7.5 MG IVCONT (06:25)
[2020-07-05 06:59] LABS: Hematocrit 26.8 % (37-47); Hemoglobin 8.4 g/dl (12.0-16.0); Mean Corpuscular HGB Conc 31.3 g/dl (31.0-35.0); Mean Corpuscular Hemoglobin 27.7 pg (27.0-33.0); Mean Corpuscular Volume 88.4 fL (80-98); Mean Platelet Volume 10.5 fL (9.4-12.3); Platelet Count 418 X10*3/uL (160-400); Red Blood Count 3.03 X10*6/uL (4.20-5.50); Red Cell Distribution Width 14.9 % (11.0-16.0)
[2020-07-05 07:15] LABS: Anion Gap 15 (12-20); Blood Urea Nitrogen 10 mg/dL (9-16); Calcium 8.3 mg/dL (8.4-10.2); Carbon Dioxide 23 mmol/L (22-29); Chloride 103 mmol/L (96-108); Creatinine Clr Calc Pharmacy 56.8; Estimated Glomerular Filt Rate 50; Glucose Random 193 mg/dL (60-115); Potassium 3.5 mmol/l (3.3-5.1); Sodium 137 mmol/L (135-145)
[2020-07-05 07:36] LABS: Glucose, Whole Blood 199 mg/dL (60-115)
[2020-07-05] MEDS: Insulin Lispro 100 UNIT/ML 3 ML VIAL SUBCUT ×3 (07:50→21:17)
[2020-07-05] MEDS: Sodium Bicarbonate 650 MG TABLET PO ×2 (07:51→21:18)
[2020-07-05] MEDS: Losartan Potassium 50 MG TABLET PO (07:51)
[2020-07-05] MEDS: DULoxetine HCl 60 MG CAPSULE.DR PO (07:51)
[2020-07-05] MEDS: Metoprolol Tartrate 50 MG TABLET PO ×3 (07:52→21:18)
[2020-07-05] MEDS: amLODIPine Besylate 10 MG TABLET PO (07:52)
[2020-07-05] MEDS: Enoxaparin Sodium 100 MG/ML SYRINGE 80 MG SUBCUT ×2 (07:53→21:21)
--- NOTE | 2020-07-05 08:28 | PM.PNGS ---
Subjective Subjective Date of Service: 07/05/20 Interval history: Patient with no new complaints this morning. She did need to take pain medication this morning due to the foot pain and feels much improved today. Physical Exam Vital Signs: Vital Signs: Last Vital Signs Temp 97.7 F 07/05/20 07:48 Pulse 105 H 07/05/20 07:52 Resp 18 07/05/20 07:48 BP 165/79 H 07/05/20 07:52 Pulse Ox 95 07/05/20 07:48 Body Mass Index 32.3 Const: General: cooperative, healthy appearing, comfortable and no acute distress Resp: Other: Breathing comfortably on room air, no respiratory distress Skin: Other: Warm and dry, no rash Extrem: Other: Status post left 1st toe transmetatarsal amputation. Dressings changed wounds found to be clean and intact. The Juan drain was removed and clean dry dressings applied. Progress Note: A&P Assessment and plan (1) Osteomyelitis of great toe of left foot: Status: Acute Assessment and Plan: 65-year-old female patient status post left 1st toe transmetatarsal amputation. Wounds are clean and intact. Juan drain was removed today and clean dressings applied. Patient tolerated the dressing change well. Continue antibiotics and bed rest as suggested by Dr. Georges. Fall Risk Details Current Medications: Current Medications Generic Name Dose Route Start Last Admin Trade Name Freq PRN Reason Stop Dose Admin Acetaminophen 650 mg 06/20/20 06:39 07/04/20 22:25 Acetaminophen 325 Mg Tablet PO 650 mg Q6H PRN Administration Pain, Mild (Pain Scale 1-3) Amlodipine Besylate 10 mg 06/20/20 09:00 07/05/20 07:52 Amlodipine Besylate 10 Mg Tablet PO 10 mg DAILY [facility] Administration Protocol Aspirin 81 mg 06/23/20 21:00 07/04/20 20:13 Aspirin Enteric Coated 81 Mg Tablet. PO 81 mg BEDTIME [facility] Administration Atorvastatin Calcium 10 mg 06/20/20 21:00 07/04/20 20:13 Atorvastatin Calcium 10 Mg Tablet PO 10 mg BEDTIME [facility] Administration Benzocaine 1 lozenge 06/30/20 13:58 07/04/20 20:17 Throat Lozenge, Medicated Lozenge MUCOUS MEM 1 lozenge Q2H PRN Administration Sore Throat Docusate Sodium 100 mg 06/20/20 06:39 Docusate Sodium 100 Mg Capsule PO DAILY PRN Constipation Docusate Sodium 100 mg 06/24/20 21:00 07/05/20 07:52 Docusate Sodium 100 Mg Capsule PO Not Given BID [facility] Duloxetine HCl 60 mg 06/20/20 09:00 07/05/20 07:51 Duloxetine Hcl 60 Mg Capsule.Dr PO 60 mg DAILY [facility] Administration Enoxaparin Sodium 80 mg 06/24/20 09:00 07/05/20 07:53 Enoxaparin Sodium 100 Mg/Ml Syringe SUBCUT 80 mg Q12H [facility] Administration Ceftriaxone Sodium 1 gm/ 50 mls @ 100 mls/hr 06/29/20 18:00 07/04/20 17:42 Sodium Chloride IV Infused Q24H [facility] Infusion Diltiazem HCl 125 mg/ Sodium 125 mls @ 0 mls/hr 07/04/20 09:45 07/05/20 06:25 Chloride IVCONT 7.5 mg/hr .Q0M [facility] 7.5 mls/hr Administration Protocol Per Protocol Insulin Glargine 20 unit 06/29/20 21:00 07/04/20 20:13 Insulin Glargine,Hum.Rec.Anlog 100 Unit/Ml 10 Ml Vial SUBCUT 20 unit BEDTIME [facility] Administration Insulin Human Lispro 0 unit 06/20/20 07:30 07/05/20 07:50 Insulin Lispro 100 Unit/Ml 3 Ml Vial SUBCUT 2 unit QIDACHS [facility] Administration Protocol Levothyroxine Sodium 75 mcg 06/24/20 06:00 07/05/20 06:14 Levothyroxine Sodium 75 Mcg Tablet PO 75 mcg DAILY@0600 [facility] Administration Losartan Potassium 50 mg 06/20/20 09:00 07/05/20 07:51 Losartan Potassium 50 Mg Tablet PO 50 mg DAILY [facility] Administration Protocol Metoprolol Tartrate 50 mg 07/04/20 21:00 07/05/20 07:52 Metoprolol Tartrate 50 Mg Tablet PO 50 mg BID [facility] Administration Protocol Omeprazole 20 mg 06/20/20 07:30 07/05/20 06:13 Omeprazole 20 Mg Capsule.Dr PO 20 mg DAILY@0630 [facility] Administration Ondansetron HCl 4 mg 06/20/20 06:39 06/30/20 15:56 Ondansetron Hcl 4 Mg/2 Ml Vial IVPUSH 4 mg Q8H PRN Administration Nausea and Vomiting Oxycodone HCl 5 mg 07/03/20 11:11 07/05/20 00:55 Oxycodone Hcl Immed Release 5 Mg Tablet PO 5 mg Q4H PRN Administration Pain, Moderate (Pain Scale 4-6 Pharmacy Consult 1 each 06/20/20 03:31 Consult Rx Perform Med Rec MISCELLANE ONCE PRN Consult order Pharmacy Consult 1 each 06/28/20 16:02 Consult Rx Vancomycin Dosing MISCELLANE DAILY PRN Consult order Polyethylene Glycol 17 gm 06/25/20 10:25 07/05/20 07:52 Polyethylene Glycol 3350 17 Gm Powd.Pack PO Not Given DAILY [facility] Risperidone 0.25 mg 06/22/20 21:00 07/04/20 20:13 Risperidone 0.25 Mg Tablet PO 0.25 mg BEDTIME [facility] Administration Sodium Bicarbonate 650 mg 06/30/20 09:00 07/05/20 07:51 Sodium Bicarbonate 650 Mg Tablet PO 650 mg BID [facility] Administration Sodium Chloride 3 ml 06/20/20 08:00 07/05/20 07:51 0.9 % Sodium Chloride Flush 3 Ml Syringe IVFLUSH Not Given QSHIFT [facility] Trazodone HCl 50 mg 06/20/20 06:43 07/04/20 20:17 Trazodone Hcl 50 Mg Tablet PO 50 mg BEDTIME PRN Administration insomnia Time Spent With Patient Time: Total time spent is greater than 50% in coordination of care (as documented) at patient's floor/unit and/or counseling patient: Time with patient: 15 - 24 minutes
[2020-07-05 11:39] LABS: Glucose, Whole Blood 319 mg/dL (60-115)
--- NOTE | 2020-07-05 11:40 | P.PNIM_ITS ---
Subjective Subjective Date of Service: 07/05/20 Interval History: afib and foot infection Review of Systems Denies any palpitation or chest pain, still has tachycardia Any abdominal pain or pain Physical Exam Vital Signs: Vital Signs: Last Vital Signs Temp 97.7 F 07/05/20 07:48 Pulse 105 H 07/05/20 07:52 Resp 18 07/05/20 07:48 BP 165/79 H 07/05/20 07:52 Pulse Ox 95 07/05/20 07:48 Body Mass Index 32.3 Physical exam: Cvs: irregular rythem, [id number] , no murmur res: clear to auscultation ,no rhonchii or wheezing abd: no rebound or guarding ,nt, bs present. ext pulses present , no cyanosis Left 1st toe transmetatarsal amputation site is clean. Will keep Juan drain in place neuro: [email or web address] , nonfocal. Objective Data Current Medications Generic Name Dose Route Start Last Admin Trade Name Freq PRN Reason Stop Dose Admin Acetaminophen 650 mg 06/20/20 06:39 07/04/20 22:25 Acetaminophen 325 Mg Tablet PO 650 mg Q6H PRN Administration Pain, Mild (Pain Scale 1-3) Amlodipine Besylate 10 mg 06/20/20 09:00 07/05/20 07:52 Amlodipine Besylate 10 Mg Tablet PO 10 mg DAILY [facility] Administration Protocol Aspirin 81 mg 06/23/20 21:00 07/04/20 20:13 Aspirin Enteric Coated 81 Mg Tablet. PO 81 mg BEDTIME [facility] Administration Atorvastatin Calcium 10 mg 06/20/20 21:00 07/04/20 20:13 Atorvastatin Calcium 10 Mg Tablet PO 10 mg BEDTIME [facility] Administration Benzocaine 1 lozenge 06/30/20 13:58 07/04/20 20:17 Throat Lozenge, Medicated Lozenge MUCOUS MEM 1 lozenge Q2H PRN Administration Sore Throat Docusate Sodium 100 mg 06/20/20 06:39 Docusate Sodium 100 Mg Capsule PO DAILY PRN Constipation Docusate Sodium 100 mg 06/24/20 21:00 07/05/20 07:52 Docusate Sodium 100 Mg Capsule PO Not Given BID [facility] Duloxetine HCl 60 mg 06/20/20 09:00 07/05/20 07:51 Duloxetine Hcl 60 Mg Capsule. PO 60 mg DAILY [facility] Administration Enoxaparin Sodium 80 mg 06/24/20 09:00 07/05/20 07:53 Enoxaparin Sodium 100 Mg/Ml Syringe SUBCUT 80 mg Q12H [facility] Administration Ceftriaxone Sodium 1 gm/ 50 mls @ 100 mls/hr 06/29/20 18:00 07/04/20 17:42 Sodium Chloride IV Infused Q24H [facility] Infusion Diltiazem HCl 125 mg/ Sodium 125 mls @ 0 mls/hr 07/04/20 09:45 07/05/20 10:34 Chloride IVCONT 5 mg/hr .Q0M [facility] 5 mls/hr Titration Protocol Per Protocol Insulin Glargine 20 unit 06/29/20 21:00 07/04/20 20:13 Insulin Glargine,Hum.Rec.Anlog 100 Unit/Ml 10 Ml Vial SUBCUT 20 unit BEDTIME [facility] Administration Insulin Human Lispro 0 unit 06/20/20 07:30 07/05/20 07:50 Insulin Lispro 100 Unit/Ml 3 Ml Vial SUBCUT 2 unit QIDACHS [facility] Administration Protocol Levothyroxine Sodium 75 mcg 06/24/20 06:00 07/05/20 06:14 Levothyroxine Sodium 75 Mcg Tablet PO 75 mcg DAILY@0600 [facility] Administration Losartan Potassium 50 mg 06/20/20 09:00 07/05/20 07:51 Losartan Potassium 50 Mg Tablet PO 50 mg DAILY [facility] Administration Protocol Metoprolol Tartrate 50 mg 07/04/20 21:00 07/05/20 07:52 Metoprolol Tartrate 50 Mg Tablet PO 50 mg BID [facility] Administration Protocol Omeprazole 20 mg 06/20/20 07:30 07/05/20 06:13 Omeprazole 20 Mg Capsule.Dr PO 20 mg DAILY@0630 [facility] Administration Ondansetron HCl 4 mg 06/20/20 06:39 06/30/20 15:56 Ondansetron Hcl 4 Mg/2 Ml Vial IVPUSH 4 mg Q8H PRN Administration Nausea and Vomiting Oxycodone HCl 5 mg 07/03/20 11:11 07/05/20 10:19 Oxycodone Hcl Immed Release 5 Mg Tablet PO 5 mg Q4H PRN Administration Pain, Moderate (Pain Scale 4-6 Pharmacy Consult 1 each 06/20/20 03:31 Consult Rx Perform Med Rec MISCELLANE ONCE PRN Consult order Pharmacy Consult 1 each 06/28/20 16:02 Consult Rx Vancomycin Dosing MISCELLANE DAILY PRN Consult order Polyethylene Glycol 17 gm 06/25/20 10:25 07/05/20 07:52 Polyethylene Glycol 3350 17 Gm Powd.Pack PO Not Given DAILY [facility] Risperidone 0.25 mg 06/22/20 21:00 07/04/20 20:13 Risperidone 0.25 Mg Tablet PO 0.25 mg BEDTIME [facility] Administration Sodium Bicarbonate 650 mg 06/30/20 09:00 07/05/20 07:51 Sodium Bicarbonate 650 Mg Tablet PO 650 mg BID [facility] Administration Sodium Chloride 3 ml 06/20/20 08:00 07/05/20 07:51 0.9 % Sodium Chloride Flush 3 Ml Syringe IVFLUSH Not Given QSHIFT [facility] Trazodone HCl 50 mg 06/20/20 06:43 07/04/20 20:17 Trazodone Hcl 50 Mg Tablet PO 50 mg BEDTIME PRN Administration insomnia Labs CBC & Chem 7: 07/05/20 06:03 07/05/20 06:03 Microbiology Microbiology Results: Microbiology 06/28/20 20:21 Blood - Venous Blood Culture - Final No growth after 5 days. 06/28/20 20:14 Blood - Venous Blood Culture - Final No growth after 5 days. 06/24/20 15:31 Blood - Venous Blood Culture - Final No growth after 5 days. 06/24/20 15:31 Blood - Venous Blood Culture - Final No growth after 5 days. 06/23/20 07:37 Blood - Venous Blood Culture - Final Streptococcus intermedius 06/23/20 07:37 Blood - Venous Blood Culture - Final Streptococcus intermedius Assessment and Plan (1) Atrial fibrillation: Status: Acute (2) Acute osteomyelitis of metatarsal bone of left foot: Problem details: Plantar ulcer and osteomyelitis left 1st metatarsal head Status: Acute (3) Sepsis: Status: Acute (4) Leukemoid reaction: Status: Acute (5) PAF (paroxysmal atrial fibrillation): Status: Acute (6) Gram-positive bacteremia: Status: Acute (7) Osteomyelitis of great toe of left foot: Status: Acute (8) Rhabdomyolysis: Status: Acute (9) FELIX (acute kidney injury): Status: Acute Assessment and Plan: This is a 65-year-old female with past medical history as mentioned above who presents to the hospital with complaints of frequent falls. Found to have rhabdomyolysis, FELIX. admitted for further management. 1.Sepsis likely secondary to infected foot ulcer and osteomyelitis leukocytosis initially improved but again worsening spiked fever on 06/28 reporting nausea and vomiting today intial Blood cultures growing Streptococcus intermidus repeat blood culture neg@48hrs Respiratory panel negative UA on admission was normal cdiff negative intially was on Vanco and Zosyn for 6 days switched to Rocephin per ID on . s/p 1st transmetatarsal amputation continue IV Rocephin Picc line -spoke to IR in am 2.New onset atrial fibrillation with RVR Patient is still tachycardic, patient was given IV Cardizem, will adjust metoprolol 50 b.i.d. Continue Cardizem drip 3.Elevated D-dimer D-dimer elevated around 1999 Likely secondary to sepsis, kidney injury venous Doppler negative for DVT 4.FELIX, resolved secondary to rhabdomyolysis Monitor intake and output Monitor BMP 5.Microcytic anemia Patient reports having anemia before but she cannot remember the exact numbers, no baseline for comparison Hemoglobin of stable between 8-9 has normal MCV, denies melena or bright red blood per rectum Low iron level and saturation Normal ferritin level, B12, folic acid Stool for occult blood negative on07/02/20. 6.Multiple falls No evidence of syncope CT head negative for any acute findings likely multifactorial, diabetic neuropathy, postural hypotension, physical deconditioning Neurology input appreciated PT evaluation 7.Hyperglycemia secondary to diabetes mellitus: uncontrolled hold metformin will adjust lantus and low-dose sliding scale insulin diabetic diet 8.hypertension continue amlodipine, losartan, 9.hypothyroidism continue levothyroxine DVT prophylaxis Lovenox
--- NOTE | 2020-07-05 14:45 | MHC.CM.PN ---
LISSET RODRIGUEZ @ [facility] FOLLOWING.. SHE IS RECEIVING IV ABX. S/P L TOE AMP. TRANSPORT C.
[2020-07-05 16:43] LABS: Glucose, Whole Blood 146 mg/dL (60-115)
[2020-07-05] MEDS: cefTRIAXone sodium 1 GM in 0.9 % Sodium Chloride 50 ML IV (17:00)
[2020-07-05 21:07] LABS: Glucose, Whole Blood 259 mg/dL (60-115)
[2020-07-05] MEDS: Insulin Glargine,Hum.rec.anlog 100 UNIT/ML 10 ML VIAL 20 UNIT SUBCUT (21:17)
[2020-07-05] MEDS: Atorvastatin Calcium 10 MG TABLET PO (21:18)
[2020-07-05] MEDS: Aspirin Enteric Coated 81 MG TABLET.DR PO (21:18)
[2020-07-05] MEDS: risperiDONE 0.25 MG TABLET PO (21:18)
[2020-07-05] MEDS: Throat Lozenge, Medicated LOZENGE 1 LOZENGE MUCOUS MEM (21:21)
[2020-07-05] MEDS: 0.9 % Sodium Chloride Flush 3 ML SYRINGE IVFLUSH (23:46)
[2020-07-06] VITALS (8 sets, daily range): BP systolic 128–175; BP diastolic 75–93; PULSE 73–126; RESP 18–22; TEMP 35.8–37; O2SAT 92–98
[2020-07-06] MEDS: Acetaminophen 325 MG TABLET 650 MG PO (00:06)
[2020-07-06] MEDS: Omeprazole 20 MG CAPSULE.DR PO (06:32)
[2020-07-06] MEDS: Levothyroxine Sodium 75 MCG TABLET PO (06:32)
[2020-07-06] MEDS: dilTIAZem HCL 125 MG in 0.9 % Sodium Chloride 100 ML IVCONT (06:45)
[2020-07-06 06:56] LABS: Hematocrit 24.8 % (37-47); Hemoglobin 7.8 g/dl (12.0-16.0); Mean Corpuscular HGB Conc 31.5 g/dl (31.0-35.0); Mean Corpuscular Hemoglobin 28.1 pg (27.0-33.0); Mean Corpuscular Volume 89.2 fL (80-98); Mean Platelet Volume 10.6 fL (9.4-12.3); Platelet Count 417 X10*3/uL (160-400); Red Blood Count 2.78 X10*6/uL (4.20-5.50); White Blood Count 14.2 X10*3/uL (4.8-10.8)
[2020-07-06 07:24] LABS: Anion Gap 17 (12-20); Blood Urea Nitrogen 11 mg/dL (9-16); Calcium 8.2 mg/dL (8.4-10.2); Carbon Dioxide 22 mmol/L (22-29); Chloride 103 mmol/L (96-108); Creatinine Clr Calc Pharmacy 55.8; Estimated Glomerular Filt Rate 49; Glucose Random 160 mg/dL (60-115); Potassium 3.9 mmol/l (3.3-5.1); Sodium 138 mmol/L (135-145)
[2020-07-06 07:49] LABS: Glucose, Whole Blood 187 mg/dL (60-115)
[2020-07-06] MEDS: Insulin Lispro 100 UNIT/ML 3 ML VIAL SUBCUT ×3 (08:20→17:18)
[2020-07-06] MEDS: Metoprolol Tartrate 50 MG TABLET PO ×3 (08:34→21:54)
[2020-07-06] MEDS: amLODIPine Besylate 10 MG TABLET PO (08:34)
[2020-07-06] MEDS: DULoxetine HCl 60 MG CAPSULE.DR PO (08:34)
[2020-07-06] MEDS: Enoxaparin Sodium 100 MG/ML SYRINGE 80 MG SUBCUT ×2 (08:34→21:54)
[2020-07-06] MEDS: Sodium Bicarbonate 650 MG TABLET PO ×2 (08:34→21:54)
[2020-07-06] MEDS: Losartan Potassium 50 MG TABLET PO (08:34)
[2020-07-06 11:29] LABS: Glucose, Whole Blood 222 mg/dL (60-115)
--- NOTE | 2020-07-06 11:47 | PM.PNGS ---
Subjective Subjective Date of Service: 07/06/20 Interval history: Patient with no complaints this morning denies significant left foot pain. Physical Exam Vital Signs: Vital Signs: Last Vital Signs Temp 97.6 F 07/06/20 05:20 Pulse 126 H 07/06/20 08:00 Resp 22 H 07/06/20 08:00 BP 162/93 H 07/06/20 08:00 Pulse Ox 98 07/06/20 08:00 Body Mass Index 32.3 Const: General: cooperative, healthy appearing, comfortable and no acute distress Resp: Other: Breathing comfortably on room air, no respiratory distress Skin: Other: Warm and dry, minimal edema in the lower extremities Extrem: Other: Left foot dressing changed incision remains clean and intact with minimal bloody discharge. No erythema noted in the surrounding skin. Sutures remain intact. Right foot heel ulcer cover with foam dressing. Progress Note: A&P Assessment and plan (1) Acute osteomyelitis of metatarsal bone of left foot: Problem details: Plantar ulcer and osteomyelitis left 1st metatarsal head Status: Acute Assessment and Plan: Patient is status post transmetatarsal amputation of left 1st toe. Her wounds remained clean and intact with minimal bloody discharge. Dressings were changed today and patient tolerated this well. Fall Risk Details Current Medications: Current Medications Generic Name Dose Route Start Last Admin Trade Name Freq PRN Reason Stop Dose Admin Acetaminophen 650 mg 06/20/20 06:39 07/06/20 00:06 Acetaminophen 325 Mg Tablet PO 650 mg Q6H PRN Administration Pain, Mild (Pain Scale 1-3) Amlodipine Besylate 10 mg 06/20/20 09:00 07/06/20 08:34 Amlodipine Besylate 10 Mg Tablet PO 10 mg DAILY [facility] Administration Protocol Aspirin 81 mg 06/23/20 21:00 07/05/20 21:18 Aspirin Enteric Coated 81 Mg Tablet.Dr PO 81 mg BEDTIME [facility] Administration Atorvastatin Calcium 10 mg 06/20/20 21:00 07/05/20 21:18 Atorvastatin Calcium 10 Mg Tablet PO 10 mg BEDTIME [facility] Administration Benzocaine 1 lozenge 06/30/20 13:58 07/05/20 21:21 Throat Lozenge, Medicated Lozenge MUCOUS MEM 1 lozenge Q2H PRN Administration Sore Throat Docusate Sodium 100 mg 06/20/20 06:39 Docusate Sodium 100 Mg Capsule PO DAILY PRN Constipation Docusate Sodium 100 mg 06/24/20 21:00 07/06/20 08:35 Docusate Sodium 100 Mg Capsule PO Not Given BID [facility] Duloxetine HCl 60 mg 06/20/20 09:00 07/06/20 08:34 Duloxetine Hcl 60 Mg Capsule. PO 60 mg DAILY [facility] Administration Enoxaparin Sodium 80 mg 06/24/20 09:00 07/06/20 08:34 Enoxaparin Sodium 100 Mg/Ml Syringe SUBCUT 80 mg Q12H [facility] Administration Ceftriaxone Sodium 1 gm/ 50 mls @ 100 mls/hr 06/29/20 18:00 07/05/20 17:37 Sodium Chloride IV Infused Q24H [facility] Infusion Diltiazem HCl 125 mg/ Sodium 125 mls @ 0 mls/hr 07/04/20 09:45 07/06/20 08:40 Chloride IVCONT 7.5 mg/hr .Q0M [facility] 7.5 mls/hr Titration Protocol Per Protocol Insulin Glargine 20 unit 06/29/20 21:00 07/05/20 21:17 Insulin Glargine,Hum.Rec.Anlog 100 Unit/Ml 10 Ml Vial SUBCUT 20 unit BEDTIME [facility] Administration Insulin Human Lispro 0 unit 06/20/20 07:30 07/06/20 08:20 Insulin Lispro 100 Unit/Ml 3 Ml Vial SUBCUT 2 unit QIDACHS [facility] Administration Protocol Levothyroxine Sodium 75 mcg 06/24/20 06:00 07/06/20 06:32 Levothyroxine Sodium 75 Mcg Tablet PO 75 mcg DAILY@0600 [facility] Administration Losartan Potassium 50 mg 06/20/20 09:00 07/06/20 08:34 Losartan Potassium 50 Mg Tablet PO 50 mg DAILY [facility] Administration Protocol Metoprolol Tartrate 50 mg 07/05/20 15:00 07/06/20 08:34 Metoprolol Tartrate 50 Mg Tablet PO 50 mg TID [facility] Administration Protocol Omeprazole 20 mg 06/20/20 07:30 07/06/20 06:32 Omeprazole 20 Mg Capsule.Dr PO 20 mg DAILY@0630 [facility] Administration Ondansetron HCl 4 mg 06/20/20 06:39 06/30/20 15:56 Ondansetron Hcl 4 Mg/2 Ml Vial IVPUSH 4 mg Q8H PRN Administration Nausea and Vomiting Oxycodone HCl 5 mg 07/03/20 11:11 07/05/20 19:21 Oxycodone Hcl Immed Release 5 Mg Tablet PO 5 mg Q4H PRN Administration Pain, Moderate (Pain Scale 4-6 Pharmacy Consult 1 each 06/20/20 03:31 Consult Rx Perform Med Rec MISCELLANE ONCE PRN Consult order Pharmacy Consult 1 each 06/28/20 16:02 Consult Rx Vancomycin Dosing MISCELLANE DAILY PRN Consult order Polyethylene Glycol 17 gm 06/25/20 10:25 07/06/20 08:35 Polyethylene Glycol 3350 17 Gm Powd.Pack PO Not Given DAILY [facility] Risperidone 0.25 mg 06/22/20 21:00 07/05/20 21:18 Risperidone 0.25 Mg Tablet PO 0.25 mg BEDTIME [facility] Administration Sodium Bicarbonate 650 mg 06/30/20 09:00 07/06/20 08:34 Sodium Bicarbonate 650 Mg Tablet PO 650 mg BID [facility] Administration Sodium Chloride 3 ml 06/20/20 08:00 07/06/20 08:44 0.9 % Sodium Chloride Flush 3 Ml Syringe IVFLUSH Not Given QSHIFT [facility] Trazodone HCl 50 mg 06/20/20 06:43 07/04/20 20:17 Trazodone Hcl 50 Mg Tablet PO 50 mg BEDTIME PRN Administration insomnia Time Spent With Patient Time: Total time spent is greater than 50% in coordination of care (as documented) at patient's floor/unit and/or counseling patient: Time with patient: 15 - 24 minutes
[2020-07-06] MEDS: oxyCODONE HCl Immed Release 5 MG TABLET PO ×2 (14:52→21:58)
--- NOTE | 2020-07-06 16:28 | P.PNIM_ITS ---
Subjective Subjective Date of Service: 07/06/20 Interval History: the patient was seen and evaluated this morning Laying in bed, feels comfortable Denies any fever, chills or shortness of breath Pending PICC line placement No reported other overnight events. Systemic review: No fever, chills or weakness No chest pain, palpitation No shortness of breath or coughing No abdominal pain, nausea or vomiting No urinary symptoms Reports inguinal rash Physical Exam Vital Signs: Vital Signs: Last Vital Signs Temp 96.5 F L 07/06/20 14:56 Pulse 92 07/06/20 14:56 Resp 18 07/06/20 14:56 BP 128/77 07/06/20 14:56 Pulse Ox 98 07/06/20 14:56 Body Mass Index 32.3 Constitutional : Alert, oriented, not in distress Neck : Normal inspection, Supple Cardiovascular : RRR, S1 S2, no lower extremity edema Respiratory : Good bilateral air entry, no crackles, wheezes or rhonchi Gastrointestinal: soft, lax, Normal bowel sounds, Non tender Skin : Left 1st toe amputation face is clean, covered. Inguinal fungal rash. Neurological : Alert & oriented x3, No focal deficit Objective Data Current Medications Generic Name Dose Route Start Last Admin Trade Name Freq PRN Reason Stop Dose Admin Acetaminophen 650 mg 06/20/20 06:39 07/06/20 00:06 Acetaminophen 325 Mg Tablet PO 650 mg Q6H PRN Administration Pain, Mild (Pain Scale 1-3) Amlodipine Besylate 10 mg 06/20/20 09:00 07/06/20 08:34 Amlodipine Besylate 10 Mg Tablet PO 10 mg DAILY [facility] Administration Protocol Aspirin 81 mg 06/23/20 21:00 07/05/20 21:18 Aspirin Enteric Coated 81 Mg Tablet.Dr PO 81 mg BEDTIME [facility] Administration Atorvastatin Calcium 10 mg 06/20/20 21:00 07/05/20 21:18 Atorvastatin Calcium 10 Mg Tablet PO 10 mg BEDTIME [facility] Administration Benzocaine 1 lozenge 06/30/20 13:58 07/05/20 21:21 Throat Lozenge, Medicated Lozenge MUCOUS MEM 1 lozenge Q2H PRN Administration Sore Throat Docusate Sodium 100 mg 06/20/20 06:39 Docusate Sodium 100 Mg Capsule PO DAILY PRN Constipation Docusate Sodium 100 mg 06/24/20 21:00 07/06/20 08:35 Docusate Sodium 100 Mg Capsule PO Not Given BID [facility] Duloxetine HCl 60 mg 06/20/20 09:00 07/06/20 08:34 Duloxetine Hcl 60 Mg Capsule. PO 60 mg DAILY [facility] Administration Enoxaparin Sodium 80 mg 06/24/20 09:00 07/06/20 08:34 Enoxaparin Sodium 100 Mg/Ml Syringe SUBCUT 80 mg Q12H [facility] Administration Ceftriaxone Sodium 1 gm/ 50 mls @ 100 mls/hr 06/29/20 18:00 07/05/20 17:37 Sodium Chloride IV Infused Q24H [facility] Infusion Diltiazem HCl 125 mg/ Sodium 125 mls @ 0 mls/hr 07/04/20 09:45 07/06/20 08:40 Chloride IVCONT 7.5 mg/hr .Q0M [facility] 7.5 mls/hr Titration Protocol Per Protocol Insulin Glargine 20 unit 06/29/20 21:00 07/05/20 21:17 Insulin Glargine,Hum.Rec.Anlog 100 Unit/Ml 10 Ml Vial SUBCUT 20 unit BEDTIME [facility] Administration Insulin Human Lispro 0 unit 06/20/20 07:30 07/06/20 11:59 Insulin Lispro 100 Unit/Ml 3 Ml Vial SUBCUT 4 unit QIDACHS [facility] Administration Protocol Levothyroxine Sodium 75 mcg 06/24/20 06:00 07/06/20 06:32 Levothyroxine Sodium 75 Mcg Tablet PO 75 mcg DAILY@0600 [facility] Administration Losartan Potassium 50 mg 06/20/20 09:00 07/06/20 08:34 Losartan Potassium 50 Mg Tablet PO 50 mg DAILY [facility] Administration Protocol Metoprolol Tartrate 50 mg 07/05/20 15:00 07/06/20 14:49 Metoprolol Tartrate 50 Mg Tablet PO 50 mg TID [facility] Administration Protocol Nystatin 1 appl 07/06/20 21:00 Nystatin Cream 15 Gm Tube TOPICAL BID [facility] Protocol Omeprazole 20 mg 06/20/20 07:30 07/06/20 06:32 Omeprazole 20 Mg Capsule. PO 20 mg DAILY@0630 [facility] Administration Ondansetron HCl 4 mg 06/20/20 06:39 06/30/20 15:56 Ondansetron Hcl 4 Mg/2 Ml Vial IVPUSH 4 mg Q8H PRN Administration Nausea and Vomiting Oxycodone HCl 5 mg 07/03/20 11:11 07/06/20 14:52 Oxycodone Hcl Immed Release 5 Mg Tablet PO 5 mg Q4H PRN Administration Pain, Moderate (Pain Scale 4-6 Pharmacy Consult 1 each 06/20/20 03:31 Consult Rx Perform Med Rec MISCELLANE ONCE PRN Consult order Pharmacy Consult 1 each 06/28/20 16:02 Consult Rx Vancomycin Dosing MISCELLANE DAILY PRN Consult order Polyethylene Glycol 17 gm 06/25/20 10:25 07/06/20 08:35 Polyethylene Glycol 3350 17 Gm Powd.Pack PO Not Given DAILY [facility] Risperidone 0.25 mg 06/22/20 21:00 07/05/20 21:18 Risperidone 0.25 Mg Tablet PO 0.25 mg BEDTIME [facility] Administration Sodium Bicarbonate 650 mg 06/30/20 09:00 07/06/20 08:34 Sodium Bicarbonate 650 Mg Tablet PO 650 mg BID [facility] Administration Sodium Chloride 3 ml 06/20/20 08:00 07/06/20 08:44 0.9 % Sodium Chloride Flush 3 Ml Syringe IVFLUSH Not Given QSHIFT [facility] Trazodone HCl 50 mg 06/20/20 06:43 07/04/20 20:17 Trazodone Hcl 50 Mg Tablet PO 50 mg BEDTIME PRN Administration insomnia Labs CBC & Chem 7: 07/06/20 05:36 07/06/20 05:36 Microbiology Microbiology Results: Microbiology 06/28/20 20:21 Blood - Venous Blood Culture - Final No growth after 5 days. 06/28/20 20:14 Blood - Venous Blood Culture - Final No growth after 5 days. 06/24/20 15:31 Blood - Venous Blood Culture - Final No growth after 5 days. 06/24/20 15:31 Blood - Venous Blood Culture - Final No growth after 5 days. 06/23/20 07:37 Blood - Venous Blood Culture - Final Streptococcus intermedius 06/23/20 07:37 Blood - Venous Blood Culture - Final Streptococcus intermedius Assessment and Plan (1) Atrial fibrillation: Status: Acute (2) Acute osteomyelitis of metatarsal bone of left foot: Status: Acute (3) Sepsis: Status: Acute (4) Leukemoid reaction: Status: Acute (5) PAF (paroxysmal atrial fibrillation): Status: Acute (6) Gram-positive bacteremia: Status: Acute (7) Osteomyelitis of great toe of left foot: Status: Acute (8) Rhabdomyolysis: Status: Acute (9) FELIX (acute kidney injury): Status: Acute Assessment and Plan: This is a 65-year-old female with past medical history as mentioned above who presents to the hospital with complaints of frequent falls. Found to have rhabdomyolysis, FELIX. admitted for further management. Sepsis , resolved foot ulcer and osteomyelitis s\p 1st transmetatarsal amputation Blood cultures growing Streptococcus intermidus repeat blood culture neg@48hrs To place PICC line Continue Rocephin D13 ID input appreciated New onset atrial fibrillation with RVR still tachycardic, Continuemetoprolol 50 b.i.d. Continue Cardizem drip, wean down as tolerated on full dose Lovenox Elevated D-dimer D-dimer elevated around 1999 Likely secondary to sepsis, kidney injury venous Doppler negative for DVT fungal infection use Nystatin cream FELIX, resolved secondary to rhabdomyolysis Monitor intake and output Monitor BMP Microcytic anemia Patient reports having anemia before but she cannot remember the exact numbers, no baseline for comparison Hemoglobin of stable between 8-9 has normal MCV, denies melena or bright red blood per rectum Low iron level and saturation Normal ferritin level, B12, folic acid Stool for occult blood negative on07/02/20. Multiple falls No evidence of syncope CT head negative for any acute findings likely multifactorial, diabetic neuropathy, postural hypotension, physical decon ditioning Neurology input appreciated PT evaluation Hyperglycemia secondary to diabetes mellitus: uncontrolled hold metformin will adjust lantus and low-dose sliding scale insulin diabetic diet hypertension continue amlodipine, losartan, hypothyroidism continue levothyroxine DVT prophylaxis Lovenox
[2020-07-06 16:47] LABS: Glucose, Whole Blood 212 mg/dL (60-115)
[2020-07-06] MEDS: cefTRIAXone sodium 1 GM in 0.9 % Sodium Chloride 50 ML IV (17:19)
[2020-07-06] MEDS: Nystatin Cream 15 GM TUBE 1 APPL TOPICAL (17:25)
[2020-07-06 21:20] LABS: Glucose, Whole Blood 184 mg/dL (60-115)
[2020-07-06] MEDS: Insulin Glargine,Hum.rec.anlog 100 UNIT/ML 10 ML VIAL 20 UNIT SUBCUT (21:53)
[2020-07-06] MEDS: Aspirin Enteric Coated 81 MG TABLET.DR PO (21:54)
[2020-07-06] MEDS: risperiDONE 0.25 MG TABLET PO (21:54)
[2020-07-06] MEDS: Atorvastatin Calcium 10 MG TABLET PO (21:54)
[2020-07-07] VITALS (8 sets, daily range): BP systolic 120–152; BP diastolic 70–77; PULSE 72–113; RESP 18–20; TEMP 36.1–37; O2SAT 94–98
[2020-07-07] MEDS: dilTIAZem HCL 125 MG in 0.9 % Sodium Chloride 100 ML IVCONT (02:38)
[2020-07-07] MEDS: Levothyroxine Sodium 75 MCG TABLET PO (05:44)
[2020-07-07] MEDS: Omeprazole 20 MG CAPSULE.DR PO (05:44)
[2020-07-07 08:05] LABS: Glucose, Whole Blood 173 mg/dL (60-115)
[2020-07-07] MEDS: Sodium Bicarbonate 650 MG TABLET PO ×2 (08:19→21:01)
[2020-07-07] MEDS: amLODIPine Besylate 10 MG TABLET PO (08:19)
[2020-07-07] MEDS: Metoprolol Tartrate 50 MG TABLET PO ×2 (08:19→11:03)
[2020-07-07] MEDS: Losartan Potassium 50 MG TABLET PO (08:19)
[2020-07-07] MEDS: DULoxetine HCl 60 MG CAPSULE.DR PO (08:20)
[2020-07-07] MEDS: Insulin Lispro 100 UNIT/ML 3 ML VIAL SUBCUT ×4 (08:20→21:01)
[2020-07-07] MEDS: 0.9 % Sodium Chloride Flush 3 ML SYRINGE IVFLUSH ×3 (08:20→22:32)
[2020-07-07] MEDS: Nystatin Cream 15 GM TUBE 1 APPL TOPICAL ×2 (08:21→22:32)
[2020-07-07] MEDS: Enoxaparin Sodium 100 MG/ML SYRINGE 80 MG SUBCUT (08:21)
--- NOTE | 2020-07-07 09:30 | P.PNGS_ITS ---
Subjective Subjective Date of Service: 07/07/20 Interval history: Patient reports having a good sleep last night and denies any left foot pain. Physical Exam Vital Signs: Vital Signs: Last Vital Signs Temp 97.0 F 07/07/20 07:59 Pulse 92 07/07/20 08:19 Resp 18 07/07/20 07:59 BP 152/73 H 07/07/20 08:19 Pulse Ox 97 07/07/20 07:59 Body Mass Index 32.3 Const: General: cooperative, healthy appearing, comfortable and no acute distress Resp: Other: Breathing comfortably on room air, no respiratory distress Skin: Other: Warm and dry, lower extremity edema Extrem: Other: Left foot dressing changed; minimal dried blood noted on dressing. Skin is clean and intact, no erythema is noted. Dry sterile dressings applied. Right heel dressing changed with sponge dressing followed by red sock. 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 Her wounds remained clean and intact with minimal bloody discharge. Dressings were changed today and patient tolerated this well. Patient is awaiting PICC catheter placement tomorrow with planned for STR. Fall Risk Details Current Medications: Current Medications Generic Name Dose Route Start Last Admin Trade Name Freq PRN Reason Stop Dose Admin Acetaminophen 650 mg 06/20/20 06:39 07/06/20 00:06 Acetaminophen 325 Mg Tablet PO 650 mg Q6H PRN Administration Pain, Mild (Pain Scale 1-3) Amlodipine Besylate 10 mg 06/20/20 09:00 07/07/20 08:19 Amlodipine Besylate 10 Mg Tablet PO 10 mg DAILY [facility] Administration Protocol Apixaban 5 mg 07/07/20 09:00 Apixaban 5 Mg Tablet PO BID [facility] Aspirin 81 mg 06/23/20 21:00 07/06/20 21:54 Aspirin Enteric Coated 81 Mg Tablet.Dr PO 81 mg BEDTIME [facility] Administration Atorvastatin Calcium 10 mg 06/20/20 21:00 07/06/20 21:54 Atorvastatin Calcium 10 Mg Tablet PO 10 mg BEDTIME [facility] Administration Benzocaine 1 lozenge 06/30/20 13:58 07/05/20 21:21 Throat Lozenge, Medicated Lozenge MUCOUS MEM 1 lozenge Q2H PRN Administration Sore Throat Docusate Sodium 100 mg 06/20/20 06:39 Docusate Sodium 100 Mg Capsule PO DAILY PRN Constipation Docusate Sodium 100 mg 06/24/20 21:00 07/07/20 08:20 Docusate Sodium 100 Mg Capsule PO Not Given BID [facility] Duloxetine HCl 60 mg 06/20/20 09:00 07/07/20 08:20 Duloxetine Hcl 60 Mg Capsule. PO 60 mg DAILY [facility] Administration Ceftriaxone Sodium 1 gm/ 50 mls @ 100 mls/hr 06/29/20 18:00 07/06/20 18:54 Sodium Chloride IV Infused Q24H [facility] Infusion Diltiazem HCl 125 mg/ Sodium 125 mls @ 0 mls/hr 07/04/20 09:45 07/07/20 06:28 Chloride IVCONT 5 mg/hr .Q0M [facility] 5 mls/hr Titration Protocol Per Protocol Insulin Glargine 20 unit 06/29/20 21:00 07/06/20 21:53 Insulin Glargine,Hum.Rec.Anlog 100 Unit/Ml 10 Ml Vial SUBCUT 20 unit BEDTIME [facility] Administration Insulin Human Lispro 0 unit 06/20/20 07:30 07/07/20 08:20 Insulin Lispro 100 Unit/Ml 3 Ml Vial SUBCUT 2 unit QIDACHS [facility] Administration Protocol Levothyroxine Sodium 75 mcg 06/24/20 06:00 07/07/20 05:44 Levothyroxine Sodium 75 Mcg Tablet PO 75 mcg DAILY@0600 [facility] Administration Losartan Potassium 50 mg 06/20/20 09:00 07/07/20 08:19 Losartan Potassium 50 Mg Tablet PO 50 mg DAILY [facility] Administration Protocol Metoprolol Tartrate 100 mg 07/07/20 09:00 Metoprolol Tartrate 50 Mg Tablet PO BID [facility] Protocol Nystatin 1 appl 07/06/20 21:00 07/07/20 08:21 Nystatin Cream 15 Gm Tube TOPICAL 1 appl BID [facility] Administration Protocol Omeprazole 20 mg 06/20/20 07:30 07/07/20 05:44 Omeprazole 20 Mg Capsule. PO 20 mg DAILY@0630 [facility] Administration Ondansetron HCl 4 mg 06/20/20 06:39 06/30/20 15:56 Ondansetron Hcl 4 Mg/2 Ml Vial IVPUSH 4 mg Q8H PRN Administration Nausea and Vomiting Oxycodone HCl 5 mg 07/03/20 11:11 07/06/20 21:58 Oxycodone Hcl Immed Release 5 Mg Tablet PO 5 mg Q4H PRN Administration Pain, Moderate (Pain Scale 4-6 Pharmacy Consult 1 each 06/20/20 03:31 Consult Rx Perform Med Rec MISCELLANE ONCE PRN Consult order Pharmacy Consult 1 each 06/28/20 16:02 Consult Rx Vancomycin Dosing MISCELLANE DAILY PRN Consult order Polyethylene Glycol 17 gm 06/25/20 10:25 07/07/20 08:21 Polyethylene Glycol 3350 17 Gm Powd.Pack PO Not Given DAILY [facility] Risperidone 0.25 mg 06/22/20 21:00 07/06/20 21:54 Risperidone 0.25 Mg Tablet PO 0.25 mg BEDTIME [facility] Administration Sodium Bicarbonate 650 mg 06/30/20 09:00 07/07/20 08:19 Sodium Bicarbonate 650 Mg Tablet PO 650 mg BID [facility] Administration Sodium Chloride 3 ml 06/20/20 08:00 07/07/20 08:20 0.9 % Sodium Chloride Flush 3 Ml Syringe IVFLUSH 3 ml QSHIFT [facility] Administration Trazodone HCl 50 mg 06/20/20 06:43 07/04/20 20:17 Trazodone Hcl 50 Mg Tablet PO 50 mg BEDTIME PRN Administration insomnia Time Spent With Patient Time: Total time spent is greater than 50% in coordination of care (as documented) at patient's floor/unit and/or counseling patient: Time with patient: 25 - 35 minutes
[2020-07-07 11:30] LABS: Glucose, Whole Blood 180 mg/dL (60-115)
[2020-07-07] MEDS: oxyCODONE HCl Immed Release 5 MG TABLET PO ×2 (14:15→21:01)
--- NOTE | 2020-07-07 15:16 | HO.PM.IMPN ---
Subjective Subjective Date of Service: 07/07/20 Interval History: Interval History: the patient was seen and evaluated this morning Laying in bed, feels comfortable Denies any fever, chills or shortness of breath Heart rate better controlled today, Cardizem drip weaning down Pending PICC line placement No reported other overnight events. Systemic review: No fever, chills or weakness No chest pain, palpitation No shortness of breath or coughing No abdominal pain, nausea or vomiting No urinary symptoms Reports inguinal rash Physical Exam Vital Signs: Vital Signs: Last Vital Signs Temp 97.1 F 07/07/20 11:29 Pulse 72 07/07/20 11:29 Resp 18 07/07/20 11:29 BP 140/72 H 07/07/20 11:29 Pulse Ox 94 07/07/20 11:29 Body Mass Index 32.3 Constitutional : Alert, oriented, not in distress Neck : Normal inspection, Supple Cardiovascular : Irregularly irregular rhythm, S1 S2, no lower extremity edema Respiratory : Good bilateral air entry, no crackles, wheezes or rhonchi Gastrointestinal: soft, lax, Normal bowel sounds, Non tender Skin : Left 1st toe amputation face is clean, covered. Inguinal fungal rash. Neurological : Alert & oriented x3, No focal deficit Objective Data Current Medications Generic Name Dose Route Start Last Admin Trade Name Freq PRN Reason Stop Dose Admin Acetaminophen 650 mg 06/20/20 06:39 07/06/20 00:06 Acetaminophen 325 Mg Tablet PO 650 mg Q6H PRN Administration Pain, Mild (Pain Scale 1-3) Amlodipine Besylate 10 mg 06/20/20 09:00 07/07/20 08:19 Amlodipine Besylate 10 Mg Tablet PO 10 mg DAILY [facility] Administration Protocol Apixaban 5 mg 07/07/20 09:00 07/07/20 10:38 Apixaban 5 Mg Tablet PO Not Given BID [facility] Aspirin 81 mg 06/23/20 21:00 07/06/20 21:54 Aspirin Enteric Coated 81 Mg Tablet.Dr PO 81 mg BEDTIME [facility] Administration Atorvastatin Calcium 10 mg 06/20/20 21:00 07/06/20 21:54 Atorvastatin Calcium 10 Mg Tablet PO 10 mg BEDTIME [facility] Administration Benzocaine 1 lozenge 06/30/20 13:58 07/05/20 21:21 Throat Lozenge, Medicated Lozenge MUCOUS MEM 1 lozenge Q2H PRN Administration Sore Throat Docusate Sodium 100 mg 06/20/20 06:39 Docusate Sodium 100 Mg Capsule PO DAILY PRN Constipation Docusate Sodium 100 mg 06/24/20 21:00 07/07/20 08:20 Docusate Sodium 100 Mg Capsule PO Not Given BID [facility] Duloxetine HCl 60 mg 06/20/20 09:00 07/07/20 08:20 Duloxetine Hcl 60 Mg Capsule. PO 60 mg DAILY [facility] Administration Ceftriaxone Sodium 1 gm/ 50 mls @ 100 mls/hr 06/29/20 18:00 07/06/20 18:54 Sodium Chloride IV Infused Q24H [facility] Infusion Diltiazem HCl 125 mg/ Sodium 125 mls @ 0 mls/hr 07/04/20 09:45 07/07/20 06:28 Chloride IVCONT 5 mg/hr .Q0M [facility] 5 mls/hr Titration Protocol Per Protocol Insulin Glargine 20 unit 06/29/20 21:00 07/06/20 21:53 Insulin Glargine,Hum.Rec.Anlog 100 Unit/Ml 10 Ml Vial SUBCUT 20 unit BEDTIME [facility] Administration Insulin Human Lispro 0 unit 06/20/20 07:30 07/07/20 13:01 Insulin Lispro 100 Unit/Ml 3 Ml Vial SUBCUT 2 unit QIDACHS [facility] Administration Protocol Levothyroxine Sodium 75 mcg 06/24/20 06:00 07/07/20 05:44 Levothyroxine Sodium 75 Mcg Tablet PO 75 mcg DAILY@0600 [facility] Administration Losartan Potassium 50 mg 06/20/20 09:00 07/07/20 08:19 Losartan Potassium 50 Mg Tablet PO 50 mg DAILY [facility] Administration Protocol Metoprolol Tartrate 100 mg 07/07/20 21:00 Metoprolol Tartrate 100 Mg Tablet PO BID [facility] Protocol Nystatin 1 appl 07/06/20 21:00 07/07/20 08:21 Nystatin Cream 15 Gm Tube TOPICAL 1 appl BID [facility] Administration Protocol Omeprazole 20 mg 06/20/20 07:30 07/07/20 05:44 Omeprazole 20 Mg Capsule. PO 20 mg DAILY@0630 [facility] Administration Ondansetron HCl 4 mg 06/20/20 06:39 06/30/20 15:56 Ondansetron Hcl 4 Mg/2 Ml Vial IVPUSH 4 mg Q8H PRN Administration Nausea and Vomiting Oxycodone HCl 5 mg 07/03/20 11:11 07/07/20 14:15 Oxycodone Hcl Immed Release 5 Mg Tablet PO 5 mg Q4H PRN Administration Pain, Moderate (Pain Scale 4-6 Pharmacy Consult 1 each 06/20/20 03:31 Consult Rx Perform Med Rec MISCELLANE ONCE PRN Consult order Pharmacy Consult 1 each 06/28/20 16:02 Consult Rx Vancomycin Dosing MISCELLANE DAILY PRN Consult order Polyethylene Glycol 17 gm 06/25/20 10:25 07/07/20 08:21 Polyethylene Glycol 3350 17 Gm Powd.Pack PO Not Given DAILY [facility] Risperidone 0.25 mg 06/22/20 21:00 07/06/20 21:54 Risperidone 0.25 Mg Tablet PO 0.25 mg BEDTIME [facility] Administration Sodium Bicarbonate 650 mg 06/30/20 09:00 07/07/20 08:19 Sodium Bicarbonate 650 Mg Tablet PO 650 mg BID [facility] Administration Sodium Chloride 3 ml 06/20/20 08:00 07/07/20 08:20 0.9 % Sodium Chloride Flush 3 Ml Syringe IVFLUSH 3 ml QSHIFT [facility] Administration Trazodone HCl 50 mg 06/20/20 06:43 07/04/20 20:17 Trazodone Hcl 50 Mg Tablet PO 50 mg BEDTIME PRN Administration insomnia Labs CBC & Chem 7: 07/06/20 05:36 07/06/20 05:36 Microbiology Microbiology Results: Microbiology 06/28/20 20:21 Blood - Venous Blood Culture - Final No growth after 5 days. 06/28/20 20:14 Blood - Venous Blood Culture - Final No growth after 5 days. 06/24/20 15:31 Blood - Venous Blood Culture - Final No growth after 5 days. 06/24/20 15:31 Blood - Venous Blood Culture - Final No growth after 5 days. 06/23/20 07:37 Blood - Venous Blood Culture - Final Streptococcus intermedius 06/23/20 07:37 Blood - Venous Blood Culture - Final Streptococcus intermedius Assessment and Plan (1) Atrial fibrillation: Status: Acute (2) Acute osteomyelitis of metatarsal bone of left foot: Status: Acute (3) Sepsis: Status: Acute (4) Leukemoid reaction: Status: Acute (5) PAF (paroxysmal atrial fibrillation): Status: Acute (6) Gram-positive bacteremia: Status: Acute (7) Osteomyelitis of great toe of left foot: Status: Acute (8) Rhabdomyolysis: Status: Acute (9) FELIX (acute kidney injury): Status: Acute Assessment and Plan: This is a 65-year-old female with past medical history as mentioned above who presents to the hospital with complaints of frequent falls. Found to have rhabdomyolysis, FELIX. admitted for further management. Sepsis , resolved foot ulcer and osteomyelitis s\p 1st transmetatarsal amputation Blood cultures growing Streptococcus intermidus repeat blood culture neg@48hrs To place PICC line Continue Rocephin D14 ID input appreciated New onset atrial fibrillation with RVR still tachycardic Increase metoprolol to 100 b.i.d. Discontinue Cardizem drip DC Lovenox, start Eliquis p.o. fungal infection use Nystatin cream FELIX, resolved secondary to rhabdomyolysis Monitor intake and output Monitor BMP Microcytic anemia Patient reports having anemia before but she cannot remember the exact numbers, no baseline for comparison Hemoglobin of stable between 8-9 has normal MCV, denies melena or bright red blood per rectum Low iron level and saturation Normal ferritin level, B12, folic acid Stool for occult blood negative on07/02/20. Multiple falls No evidence of syncope CT head negative for any acute findings likely multifactorial, diabetic neuropathy, postural hypotension, physical deconditioning Neurology input appreciated PT evaluation Hyperglycemia secondary to diabetes mellitus: uncontrolled hold metformin will adjust lantus and low-dose sliding scale insulin diabetic diet hypertension continue amlodipine, losartan, hypothyroidism continue levothyroxine DVT prophylaxis Eliquis
[2020-07-07] MEDS: cefTRIAXone sodium 1 GM in 0.9 % Sodium Chloride 50 ML IV (18:08)
[2020-07-07 18:21] LABS: Glucose, Whole Blood 166 mg/dL (60-115)
[2020-07-07 20:58] LABS: Glucose, Whole Blood 185 mg/dL (60-115)
[2020-07-07] MEDS: Insulin Glargine,Hum.rec.anlog 100 UNIT/ML 10 ML VIAL 20 UNIT SUBCUT (21:00)
[2020-07-07] MEDS: Aspirin Enteric Coated 81 MG TABLET.DR PO (21:01)
[2020-07-07] MEDS: risperiDONE 0.25 MG TABLET PO (21:01)
[2020-07-07] MEDS: Atorvastatin Calcium 10 MG TABLET PO (21:01)
[2020-07-07] MEDS: Metoprolol Tartrate 100 MG TABLET PO (21:01)
[2020-07-07] MEDS: Apixaban 5 MG TABLET PO (21:02)
[2020-07-08] VITALS (12 sets, daily range): BP systolic 109–149; BP diastolic 65–88; PULSE 76–115; RESP 20; TEMP 36.2–36.8; O2SAT 92–98
[2020-07-08] MEDS: Omeprazole 20 MG CAPSULE.DR PO (06:26)
[2020-07-08] MEDS: Levothyroxine Sodium 75 MCG TABLET PO (06:26)
[2020-07-08 06:47] LABS: Hematocrit 25.8 % (37-47); Hemoglobin 8.2 g/dl (12.0-16.0); Mean Corpuscular HGB Conc 31.8 g/dl (31.0-35.0); Mean Corpuscular Hemoglobin 28.3 pg (27.0-33.0); Mean Platelet Volume 10.1 fL (9.4-12.3); Platelet Count 393 X10*3/uL (160-400); Red Cell Distribution Width 15.1 % (11.0-16.0); White Blood Count 11.4 X10*3/uL (4.8-10.8)
[2020-07-08] MEDS: 0.9 % Sodium Chloride Flush 3 ML SYRINGE IVFLUSH ×2 (07:34→23:55)
[2020-07-08 07:48] LABS: Glucose, Whole Blood 163 mg/dL (60-115)
[2020-07-08] MEDS: DULoxetine HCl 60 MG CAPSULE.DR PO (08:48)
[2020-07-08] MEDS: Metoprolol Tartrate 100 MG TABLET PO ×2 (08:48→20:36)
[2020-07-08] MEDS: amLODIPine Besylate 10 MG TABLET PO (08:48)
[2020-07-08] MEDS: Apixaban 5 MG TABLET PO ×2 (08:48→20:37)
[2020-07-08] MEDS: Insulin Lispro 100 UNIT/ML 3 ML VIAL SUBCUT ×4 (08:48→20:55)
[2020-07-08] MEDS: Sodium Bicarbonate 650 MG TABLET PO ×2 (08:48→20:36)
[2020-07-08] MEDS: Docusate Sodium 100 MG CAPSULE PO (08:49)
[2020-07-08] MEDS: polyethylene glycoL 3350 17 GM POWD.PACK PO (08:49)
[2020-07-08] MEDS: Losartan Potassium 50 MG TABLET PO (08:49)
[2020-07-08] MEDS: Nystatin Cream 15 GM TUBE 1 APPL TOPICAL ×2 (08:49→20:39)
--- NOTE | 2020-07-08 10:17 | P.PNCA_ITS ---
Subjective Subjective Date of Service: 07/08/20 Principal diagnosis: Afib Interval history: Requested a follow-up regarding atrial fibrillation. She states that she gets short of breath at times that could be from atrial fibrillation but no palpitations. No anginal-type symptoms. Review of Systems Review of Systems Yes all other systems are reviewed and are negative Cardiovascular: Reports as per HPI, Reports no additional cardiovascular complaints, Denies acrocyanosis, Denies cool extremities, Denies painful fingertips, Denies chest pain, Denies chest pain at rest, Denies diaphoresis, Denies syncope, Denies irregular heart rhythm, Denies claudication, Denies leg edema, Denies lightheadedness, Denies palpitations and Reports dyspnea Respiratory: Reports dyspnea Reports confusion and Denies syncope Psychiatric: Reports confusion Endocrine: Denies palpitations Physical Exam Vital Signs: Last Vital Signs Temp 97.2 F 07/08/20 08:00 Pulse 111 H 07/08/20 08:00 Resp 20 07/08/20 08:00 BP 137/87 07/08/20 08:00 Pulse Ox 97 07/08/20 08:00 Body Mass Index 32.3 Const General: confusion Orientation/consciousness: confusion HENCT Other: Unremarkable Neck Neck: Yes normal visual inspection Chest Chest palpation & inspection: normal inspection of the chest Resp Auscultation: clear to auscultation bilaterally, no crackles and no wheezes Cardio Jugular venous distension: no JVD Palpation: normal PMI Heart sounds: S1 normal heart sound present, S2 normal heart sound present, no gallops, no murmurs and no rubs GI Palpation (GI): Soft to palpation Back/Spine/Pelvis Other: unremarkable Skin General skin exam: no rashes or lesions noted Neuro General: confusion Extrem General: Yes no clubbing, cyanosis or edema Psych Mental Status: mental status grossly normal Results Labs and Meds Result diagrams: 07/08/20 06:10 07/06/20 05:36 Lab results: Laboratory Results - last 24 hr 07/07/20 07/07/20 07/07/20 11:26 16:40 20:53 WBC RBC Hgb Hct MCV MCH MCHC RDW Plt Count MPV Absolute Nucleated RBC Nucleated RBC % (auto) POC Glucose 180 H 166 H 185 H 07/08/20 07/08/20 06:10 07:41 WBC 11.4 H RBC 2.90 L Hgb 8.2 L Hct 25.8 L MCV 89.0 MCH 28.3 MCHC 31.8 RDW 15.1 Plt Count 393 MPV 10.1 Absolute Nucleated RBC 0.000 Nucleated RBC % (auto) 0.0 POC Glucose 163 H Progress Note: A&P Assessment and plan (1) Atrial fibrillation with rapid ventricular response: Status: Acute (2) Acute osteomyelitis of metatarsal bone of left foot: Status: Acute Assessment and Plan: On telemetry, her rhythm is atrial fibrillation with ventricular rates in the 120s to 130s. She is on beta-blockers at metoprolol 100 mg b.i.d.. We can add digoxin load to this. Continue Eliquis. Echocardiogram with low-normal LVEF at 50-55% and without any obvious valvular pathology. Fall Risk Details Current Medications: Current Medications Generic Name Dose Route Start Last Admin Trade Name Freq PRN Reason Stop Dose Admin Acetaminophen 650 mg 06/20/20 06:39 07/06/20 00:06 Acetaminophen 325 Mg Tablet PO 650 mg Q6H PRN Administration Pain, Mild (Pain Scale 1-3) Amlodipine Besylate 10 mg 06/20/20 09:00 07/08/20 08:48 Amlodipine Besylate 10 Mg Tablet PO 10 mg DAILY [facility] Administration Protocol Apixaban 5 mg 07/07/20 09:00 07/08/20 08:48 Apixaban 5 Mg Tablet PO 5 mg BID [facility] Administration Aspirin 81 mg 06/23/20 21:00 07/07/20 21:01 Aspirin Enteric Coated 81 Mg Tablet.Dr PO 81 mg BEDTIME [facility] Administration Atorvastatin Calcium 10 mg 06/20/20 21:00 07/07/20 21:01 Atorvastatin Calcium 10 Mg Tablet PO 10 mg BEDTIME [facility] Administration Benzocaine 1 lozenge 06/30/20 13:58 07/05/20 21:21 Throat Lozenge, Medicated Lozenge MUCOUS MEM 1 lozenge Q2H PRN Administration Sore Throat Docusate Sodium 100 mg 06/20/20 06:39 Docusate Sodium 100 Mg Capsule PO DAILY PRN Constipation Docusate Sodium 100 mg 06/24/20 21:00 07/08/20 08:49 Docusate Sodium 100 Mg Capsule PO 100 mg BID [facility] Administration Duloxetine HCl 60 mg 06/20/20 09:00 07/08/20 08:48 Duloxetine Hcl 60 Mg Capsule. PO 60 mg DAILY [facility] Administration Ceftriaxone Sodium 1 gm/ 50 mls @ 100 mls/hr 06/29/20 18:00 07/07/20 19:24 Sodium Chloride IV Infused Q24H [facility] Infusion Insulin Glargine 20 unit 06/29/20 21:00 07/07/20 21:00 Insulin Glargine,Hum.Rec.Anlog 100 Unit/Ml 10 Ml Vial SUBCUT 20 unit BEDTIME [facility] Administration Insulin Human Lispro 0 unit 06/20/20 07:30 07/08/20 08:48 Insulin Lispro 100 Unit/Ml 3 Ml Vial SUBCUT 2 unit QIDACHS [facility] Administration Protocol Levothyroxine Sodium 75 mcg 06/24/20 06:00 07/08/20 06:26 Levothyroxine Sodium 75 Mcg Tablet PO 75 mcg DAILY@0600 [facility] Administration Losartan Potassium 50 mg 06/20/20 09:00 07/08/20 08:49 Losartan Potassium 50 Mg Tablet PO 50 mg DAILY [facility] Administration Protocol Metoprolol Tartrate 100 mg 07/07/20 21:00 07/08/20 08:48 Metoprolol Tartrate 100 Mg Tablet PO 100 mg BID [facility] Administration Protocol Nystatin 1 appl 07/06/20 21:00 07/08/20 08:49 Nystatin Cream 15 Gm Tube TOPICAL 1 appl BID [facility] Administration Protocol Omeprazole 20 mg 06/20/20 07:30 07/08/20 06:26 Omeprazole 20 Mg Capsule. PO 20 mg DAILY@0630 [facility] Administration Ondansetron HCl 4 mg 06/20/20 06:39 06/30/20 15:56 Ondansetron Hcl 4 Mg/2 Ml Vial IVPUSH 4 mg Q8H PRN Administration Nausea and Vomiting Oxycodone HCl 5 mg 07/03/20 11:11 07/07/20 21:01 Oxycodone Hcl Immed Release 5 Mg Tablet PO 5 mg Q4H PRN Administration Pain, Moderate (Pain Scale 4-6 Pharmacy Consult 1 each 06/20/20 03:31 Consult Rx Perform Med Rec MISCELLANE ONCE PRN Consult order Pharmacy Consult 1 each 06/28/20 16:02 Consult Rx Vancomycin Dosing MISCELLANE DAILY PRN Consult order Polyethylene Glycol 17 gm 06/25/20 10:25 07/08/20 08:49 Polyethylene Glycol 3350 17 Gm Powd.Pack PO 17 gm DAILY [facility] Administration Risperidone 0.25 mg 06/22/20 21:00 07/07/20 21:01 Risperidone 0.25 Mg Tablet PO 0.25 mg BEDTIME [facility] Administration Sodium Bicarbonate 650 mg 06/30/20 09:00 07/08/20 08:48 Sodium Bicarbonate 650 Mg Tablet PO 650 mg BID [facility] Administration Sodium Chloride 3 ml 06/20/20 08:00 07/08/20 07:34 0.9 % Sodium Chloride Flush 3 Ml Syringe IVFLUSH 3 ml QSHIFT [facility] Administration Trazodone HCl 50 mg 06/20/20 06:43 07/04/20 20:17 Trazodone Hcl 50 Mg Tablet PO 50 mg BEDTIME PRN Administration insomnia Time Spent With Patient Time: Total time spent is greater than 50% in coordination of care (as documented) at patient's floor/unit and/or counseling patient: Time with patient: less than 15 minutes
--- NOTE | 2020-07-08 10:44 | XR_ITS ---
EXAMINATION: XR CHEST CLINICAL INFORMATION: Status post PICC placement. COMPARISON: Chest radiographs 06/23/2020, 06/22/2020 TECHNIQUE: Portable upright AP view of the chest was obtained. FINDINGS: Patient is slightly rotated. There is left-sided PICC with tip at mid superior vena cava. There is no pneumothorax, vascular congestion, pleural reaction, or effusion. No lobar or segmental airspace consolidation or definite groundglass opacity. Heart size normal. No acute bony abnormality. XR/XR chest 1V IMPRESSION: PICC tip at mid SVC. No airspace consolidation or effusion.
--- NOTE | 2020-07-08 10:50 | P.PICC_ITS ---
PICC Line Insertion NPICC Diagnosis: OSTEOMYELITIS Indication: SENIOR [facility]ARE IV ANTIBIOTICS Pertinent Labs: REVIEWED Technique: Following informed consent including risks, benefits and alternatives and using sterile technique including cap and mask, sterile gown, glove and drape, the LEFT arm was prepped and draped in the usual sterile fashion of full barrier technique with CHG. Following completion of [place] Protocol the skin and soft tissues were anesthetized with 1% Lidocaine plain. Using ultrasound guidance, LEFT BASILIC vein access was obtained ON SECOND ATTEMPT BY THIS RN. Over an 0.018 wire through peel-away sheath, a 4 [place] SINGLE LUMEN PICC line was positioned. Catheter length is 44 CM internal length, 0 CM external length, for a total trimmed length of 44 CM. The procedure was performed in [place] [id number]. Tip verification TO BE DETERMINED BY CXR D/T UNDERLYING A-FIB. Ultrasound was used to document vein patency and for needle entry. A formal ultrasound picture was recorded. [facility] [employer] [facility] has NOT released the line for use and it is currently dressed with a StatLock, Tegaderm, and CHG disc. Verification has been performed for blood return and line patency. AWAITING CXR RESULT FOR TIP PLACEMENT CONFIRMATION TO RELEASE LINE FOR USE. Arm Circumference: 39 CM Equipment: [facility] POWER PICC SOLO Catheter Type: 4 [place] SINGLE LUMEN PICC Lot #: [id number]
[2020-07-08 11:27] LABS: Glucose, Whole Blood 225 mg/dL (60-115)
[2020-07-08] MEDS: Acetaminophen 325 MG TABLET 650 MG PO (11:28)
[2020-07-08] MEDS: Digoxin 0.5 MG/2 ML AMPUL 0.25 MG IVPUSH ×2 (11:45→17:34)
--- NOTE | 2020-07-08 12:38 | MHC.CLN ---
F/U PO 75/100 (07/06-07/08) DIET RX: 1800 DM-APPROPRIATE PT ALSO RECEIVING GLUCERNA BID TO INCREASE KCALS PROVIDES [id number], 20G PROTEIN FOLLOWING
[2020-07-08] MEDS: oxyCODONE HCl Immed Release 5 MG TABLET 2.5 MG PO ×2 (12:39→20:47)
--- NOTE | 2020-07-08 12:47 | MHC.CM.PN ---
pt being followed by lewis goodman dc wed
--- NOTE | 2020-07-08 13:34 | HO.PM.IMPN ---
Subjective Subjective Date of Service: 07/08/20 Interval History: the patient was seen and evaluated this morning Laying in bed, feels comfortable Denies any fever, chills or shortness of breath Broken to AFib with rapid ventricular response overnight No reported other overnight events. Systemic review: No fever, chills or weakness No chest pain, reported feeling palpitation No shortness of breath or coughing No abdominal pain, nausea or vomiting No urinary symptoms No any rash or wounds Physical Exam Vital Signs: Vital Signs: Last Vital Signs Temp 97.2 F 07/08/20 11:32 Pulse 113 H 07/08/20 11:45 Resp 20 07/08/20 11:32 BP 127/74 07/08/20 11:32 Pulse Ox 92 07/08/20 11:32 Body Mass Index 32.3 Constitutional : Alert, oriented, not in distress Neck : Normal inspection, Supple Cardiovascular : Irregularly irregular rhythm, S1 S2, no lower extremity edema Respiratory : Good bilateral air entry, no crackles, wheezes or rhonchi Gastrointestinal: soft, lax, Normal bowel sounds, Non tender Skin : Left 1st toe amputation face is clean, covered. Inguinal fungal rash. Neurological : Alert & oriented x3, No focal deficit Objective Data Current Medications Generic Name Dose Route Start Last Admin Trade Name Freq PRN Reason Stop Dose Admin Acetaminophen 650 mg 06/20/20 06:39 07/08/20 11:28 Acetaminophen 325 Mg Tablet PO 650 mg Q6H PRN Administration Pain, Mild (Pain Scale 1-3) Amlodipine Besylate 10 mg 06/20/20 09:00 07/08/20 08:48 Amlodipine Besylate 10 Mg Tablet PO 10 mg DAILY [facility] Administration Protocol Apixaban 5 mg 07/07/20 09:00 07/08/20 08:48 Apixaban 5 Mg Tablet PO 5 mg BID [facility] Administration Aspirin 81 mg 06/23/20 21:00 07/07/20 21:01 Aspirin Enteric Coated 81 Mg Tablet.Dr PO 81 mg BEDTIME [facility] Administration Atorvastatin Calcium 10 mg 06/20/20 21:00 07/07/20 21:01 Atorvastatin Calcium 10 Mg Tablet PO 10 mg BEDTIME [facility] Administration Benzocaine 1 lozenge 06/30/20 13:58 07/05/20 21:21 Throat Lozenge, Medicated Lozenge MUCOUS MEM 1 lozenge Q2H PRN Administration Sore Throat Digoxin 0.25 mg 07/08/20 11:00 07/08/20 11:45 Digoxin 0.5 Mg/2 Ml Ampul IVPUSH 07/08/20 17:01 0.25 mg Q6H [facility] Administration Digoxin 0.25 mg 07/09/20 00:00 Digoxin 0.25 Mg Tablet PO 07/09/20 06:01 Q6H [facility] Docusate Sodium 100 mg 06/20/20 06:39 Docusate Sodium 100 Mg Capsule PO DAILY PRN Constipation Docusate Sodium 100 mg 06/24/20 21:00 07/08/20 08:49 Docusate Sodium 100 Mg Capsule PO 100 mg BID [facility] Administration Duloxetine HCl 60 mg 06/20/20 09:00 07/08/20 08:48 Duloxetine Hcl 60 Mg Capsule. PO 60 mg DAILY [facility] Administration Ceftriaxone Sodium 1 gm/ 50 mls @ 100 mls/hr 06/29/20 18:00 07/07/20 19:24 Sodium Chloride IV Infused Q24H [facility] Infusion Insulin Glargine 20 unit 06/29/20 21:00 07/07/20 21:00 Insulin Glargine,Hum.Rec.Anlog 100 Unit/Ml 10 Ml Vial SUBCUT 20 unit BEDTIME [facility] Administration Insulin Human Lispro 0 unit 06/20/20 07:30 07/08/20 11:29 Insulin Lispro 100 Unit/Ml 3 Ml Vial SUBCUT 4 unit QIDACHS [facility]–1983 Administration Protocol Levothyroxine Sodium 75 mcg 06/24/20 06:00 07/08/20 06:26 Levothyroxine Sodium 75 Mcg Tablet PO 75 mcg DAILY@0600 [facility] Administration Losartan Potassium 50 mg 06/20/20 09:00 07/08/20 08:49 Losartan Potassium 50 Mg Tablet PO 50 mg DAILY [facility] Administration Protocol Metoprolol Tartrate 100 mg 07/07/20 21:00 07/08/20 08:48 Metoprolol Tartrate 100 Mg Tablet PO 100 mg BID [facility] Administration Protocol Nystatin 1 appl 07/06/20 21:00 07/08/20 08:49 Nystatin Cream 15 Gm Tube TOPICAL 1 appl BID [facility] Administration Protocol Omeprazole 20 mg 06/20/20 07:30 07/08/20 06:26 Omeprazole 20 Mg Capsule. PO 20 mg DAILY@0630 [facility] Administration Ondansetron HCl 4 mg 06/20/20 06:39 06/30/20 15:56 Ondansetron Hcl 4 Mg/2 Ml Vial IVPUSH 4 mg Q8H PRN Administration Nausea and Vomiting Oxycodone HCl 2.5 mg 07/08/20 11:39 07/08/20 12:39 Oxycodone Hcl Immed Release 5 Mg Tablet PO 2.5 mg Q6H PRN Administration Pain, Severe (Pain Scale 7-10) Pharmacy Consult 1 each 06/20/20 03:31 Consult Rx Perform Med Rec MISCELLANE ONCE PRN Consult order Pharmacy Consult 1 each 06/28/20 16:02 Consult Rx Vancomycin Dosing MISCELLANE DAILY PRN Consult order Polyethylene Glycol 17 gm 06/25/20 10:25 07/08/20 08:49 Polyethylene Glycol 3350 17 Gm Powd.Pack PO 17 gm DAILY [facility] Administration Risperidone 0.25 mg 06/22/20 21:00 07/07/20 21:01 Risperidone 0.25 Mg Tablet PO 0.25 mg BEDTIME [facility] Administration Sodium Bicarbonate 650 mg 06/30/20 09:00 07/08/20 08:48 Sodium Bicarbonate 650 Mg Tablet PO 650 mg BID [facility] Administration Sodium Chloride 3 ml 06/20/20 08:00 07/08/20 07:34 0.9 % Sodium Chloride Flush 3 Ml Syringe IVFLUSH 3 ml QSHIFT [facility] Administration Sodium Chloride 5 ml 07/08/20 15:00 0.9 % Sodium Chloride Flush 10 Ml Syringe IVFLUSH TID [facility] Trazodone HCl 50 mg 06/20/20 06:43 07/04/20 20:17 Trazodone Hcl 50 Mg Tablet PO 50 mg BEDTIME PRN Administration insomnia Labs CBC & Chem 7: 07/08/20 06:10 07/06/20 05:36 Microbiology Microbiology Results: Microbiology 06/28/20 20:21 Blood - Venous Blood Culture - Final No growth after 5 days. 06/28/20 20:14 Blood - Venous Blood Culture - Final No growth after 5 days. 06/24/20 15:31 Blood - Venous Blood Culture - Final No growth after 5 days. 06/24/20 15:31 Blood - Venous Blood Culture - Final No growth after 5 days. 06/23/20 07:37 Blood - Venous Blood Culture - Final Streptococcus intermedius 06/23/20 07:37 Blood - Venous Blood Culture - Final Streptococcus intermedius Assessment and Plan (1) Atrial fibrillation: Status: Acute (2) Acute osteomyelitis of metatarsal bone of left foot: Status: Acute (3) Sepsis: Status: Acute (4) Leukemoid reaction: Status: Acute (5) PAF (paroxysmal atrial fibrillation): Status: Acute (6) Gram-positive bacteremia: Status: Acute (7) Osteomyelitis of great toe of left foot: Status: Acute (8) Rhabdomyolysis: Status: Acute (9) FELIX (acute kidney injury): Status: Acute Assessment and Plan: This is a 65-year-old female with past medical history as mentioned above who presents to the hospital with complaints of frequent falls. Found to have rhabdomyolysis, FELIX. admitted for further management. New onset atrial fibrillation with RVR still tachycardic Increase metoprolol to 100 b.i.d. Load with digoxin today, to start digoxin 0.125 on Wednesday morning Keep on telemetry DC Lovenox, start Eliquis p.o. Sepsis , resolved foot ulcer and osteomyelitis s\p 1st transmetatarsal amputation Blood cultures growing Streptococcus intermidus repeat blood culture neg PICC line placed Continue Rocephin [id number] ID input appreciated fungal infection use Nystatin cream FELIX, resolved secondary to rhabdomyolysis Monitor intake and output Monitor BMP Microcytic anemia Patient reports having anemia before but she cannot remember the exact numbers, no baseline for comparison Hemoglobin of stable between 8-9 has normal MCV, denies melena or bright red blood per rectum Low iron level and saturation Normal ferritin level, B12, folic acid Stool for occult blood negative on07/02/20. Multiple falls No evidence of syncope CT head negative for any acute findings likely multifactorial, diabetic neuropathy, postural hypotension, physical deconditioning Neurology input appreciated PT evaluation Hyperglycemia secondary to diabetes mellitus: uncontrolled hold metformin will adjust lantus and low-dose sliding scale insulin diabetic diet hypertension continue amlodipine, losartan, hypothyroidism continue levothyroxine DVT prophylaxis Eliquis
--- NOTE | 2020-07-08 13:42 | PM.PNGS ---
Subjective Subjective Date of Service: 07/08/20 Interval history: Patient with no new complaints. PICC line is now in place for IV antibiotics. Physical Exam Vital Signs: Vital Signs: Last Vital Signs Temp 97.2 F 07/08/20 11:32 Pulse 113 H 07/08/20 11:45 Resp 20 07/08/20 11:32 BP 127/74 07/08/20 11:32 Pulse Ox 92 07/08/20 11:32 Body Mass Index 32.3 Const: General: cooperative, comfortable and no acute distress Skin: Other: Warm and dry, no rash Extrem: Other: Left foot dressing change. Incision remains clean, dry, and intact with no erythema or skin necrosis. Clean dressings applied. Progress Note: A&P Assessment and plan (1) Acute osteomyelitis of metatarsal bone of left foot: Status: Acute Assessment and Plan: Status post left foot great toe transmetatarsal amputation. Patient tolerated the procedure well and her wounds are healing nicely. A PICC line has now been inserted. No evidence of wound infection. Fall Risk Details Current Medications: Current Medications Generic Name Dose Route Start Last Admin Trade Name Freq PRN Reason Stop Dose Admin Acetaminophen 650 mg 06/20/20 06:39 07/08/20 11:28 Acetaminophen 325 Mg Tablet PO 650 mg Q6H PRN Administration Pain, Mild (Pain Scale 1-3) Amlodipine Besylate 10 mg 06/20/20 09:00 07/08/20 08:48 Amlodipine Besylate 10 Mg Tablet PO 10 mg DAILY [facility] Administration Protocol Apixaban 5 mg 07/07/20 09:00 07/08/20 08:48 Apixaban 5 Mg Tablet PO 5 mg BID [facility] Administration Aspirin 81 mg 06/23/20 21:00 07/07/20 21:01 Aspirin Enteric Coated 81 Mg Tablet.Dr PO 81 mg BEDTIME [facility] Administration Atorvastatin Calcium 10 mg 06/20/20 21:00 07/07/20 21:01 Atorvastatin Calcium 10 Mg Tablet PO 10 mg BEDTIME [facility] Administration Benzocaine 1 lozenge 06/30/20 13:58 07/05/20 21:21 Throat Lozenge, Medicated Lozenge MUCOUS MEM 1 lozenge Q2H PRN Administration Sore Throat Digoxin 0.25 mg 07/08/20 11:00 07/08/20 11:45 Digoxin 0.5 Mg/2 Ml Ampul IVPUSH 07/08/20 17:01 0.25 mg Q6H [facility] Administration Digoxin 0.25 mg 07/09/20 00:00 Digoxin 0.25 Mg Tablet PO 07/09/20 06:01 Q6H [facility] Docusate Sodium 100 mg 06/20/20 06:39 Docusate Sodium 100 Mg Capsule PO DAILY PRN Constipation Docusate Sodium 100 mg 06/24/20 21:00 07/08/20 08:49 Docusate Sodium 100 Mg Capsule PO 100 mg BID [facility] Administration Duloxetine HCl 60 mg 06/20/20 09:00 07/08/20 08:48 Duloxetine Hcl 60 Mg Capsule. PO 60 mg DAILY [facility] Administration Ceftriaxone Sodium 1 gm/ 50 mls @ 100 mls/hr 06/29/20 18:00 07/07/20 19:24 Sodium Chloride IV Infused Q24H [facility] Infusion Insulin Glargine 20 unit 06/29/20 21:00 07/07/20 21:00 Insulin Glargine,Hum.Rec.Anlog 100 Unit/Ml 10 Ml Vial SUBCUT 20 unit BEDTIME [facility] Administration Insulin Human Lispro 0 unit 06/20/20 07:30 07/08/20 11:29 Insulin Lispro 100 Unit/Ml 3 Ml Vial SUBCUT 4 unit QIDACHS [facility] Administration Protocol Levothyroxine Sodium 75 mcg 06/24/20 06:00 07/08/20 06:26 Levothyroxine Sodium 75 Mcg Tablet PO 75 mcg DAILY@0600 [facility] Administration Losartan Potassium 50 mg 06/20/20 09:00 07/08/20 08:49 Losartan Potassium 50 Mg Tablet PO 50 mg DAILY [facility] Administration Protocol Metoprolol Tartrate 100 mg 07/07/20 21:00 07/08/20 08:48 Metoprolol Tartrate 100 Mg Tablet PO 100 mg BID [facility] Administration Protocol Nystatin 1 appl 07/06/20 21:00 07/08/20 08:49 Nystatin Cream 15 Gm Tube TOPICAL 1 appl BID [facility] Administration Protocol Omeprazole 20 mg 06/20/20 07:30 07/08/20 06:26 Omeprazole 20 Mg Capsule. PO 20 mg DAILY@0630 [facility] Administration Ondansetron HCl 4 mg 06/20/20 06:39 06/30/20 15:56 Ondansetron Hcl 4 Mg/2 Ml Vial IVPUSH 4 mg Q8H PRN Administration Nausea and Vomiting Oxycodone HCl 2.5 mg 07/08/20 11:39 07/08/20 12:39 Oxycodone Hcl Immed Release 5 Mg Tablet PO 2.5 mg Q6H PRN Administration Pain, Severe (Pain Scale 7-10) Pharmacy Consult 1 each 06/20/20 03:31 Consult Rx Perform Med Rec MISCELLANE ONCE PRN Consult order Pharmacy Consult 1 each 06/28/20 16:02 Consult Rx Vancomycin Dosing MISCELLANE DAILY PRN Consult order Polyethylene Glycol 17 gm 06/25/20 10:25 07/08/20 08:49 Polyethylene Glycol 3350 17 Gm Powd.Pack PO 17 gm DAILY [facility] Administration Risperidone 0.25 mg 06/22/20 21:00 07/07/20 21:01 Risperidone 0.25 Mg Tablet PO 0.25 mg BEDTIME [facility] Administration Sodium Bicarbonate 650 mg 06/30/20 09:00 07/08/20 08:48 Sodium Bicarbonate 650 Mg Tablet PO 650 mg BID [facility] Administration Sodium Chloride 3 ml 06/20/20 08:00 07/08/20 07:34 0.9 % Sodium Chloride Flush 3 Ml Syringe IVFLUSH 3 ml QSHIFT [facility] Administration Sodium Chloride 5 ml 07/08/20 15:00 0.9 % Sodium Chloride Flush 10 Ml Syringe IVFLUSH TID [facility] Trazodone HCl 50 mg 06/20/20 06:43 07/04/20 20:17 Trazodone Hcl 50 Mg Tablet PO 50 mg BEDTIME PRN Administration insomnia Time Spent With Patient Time: Total time spent is greater than 50% in coordination of care (as documented) at patient's floor/unit and/or counseling patient: Time with patient: 15 - 24 minutes
[2020-07-08] MEDS: 0.9 % Sodium Chloride Flush 10 ML SYRINGE 5 ML IVFLUSH ×2 (14:09→20:38)
[2020-07-08] MEDS: Throat Lozenge, Medicated LOZENGE 1 LOZENGE MUCOUS MEM ×2 (14:12→20:48)
[2020-07-08 16:50] LABS: Glucose, Whole Blood 210 mg/dL (60-115)
[2020-07-08] MEDS: cefTRIAXone sodium 1 GM in 0.9 % Sodium Chloride 50 ML IV (17:28)
[2020-07-08 20:12] LABS: Glucose, Whole Blood 188 mg/dL (60-115)
[2020-07-08] MEDS: Aspirin Enteric Coated 81 MG TABLET.DR PO (20:36)
[2020-07-08] MEDS: risperiDONE 0.25 MG TABLET PO (20:36)
[2020-07-08] MEDS: Atorvastatin Calcium 10 MG TABLET PO (20:37)
[2020-07-08] MEDS: Insulin Glargine,Hum.rec.anlog 100 UNIT/ML 10 ML VIAL 20 UNIT SUBCUT (20:55)
[2020-07-08] MEDS: Digoxin 0.25 MG TABLET PO (23:55)
[2020-07-09] VITALS (8 sets, daily range): BP systolic 134–165; BP diastolic 75–86; PULSE 74–102; RESP 18–20; TEMP 36.3–37.4; O2SAT 97–99
[2020-07-09] MEDS: Levothyroxine Sodium 75 MCG TABLET PO (05:36)
[2020-07-09] MEDS: Omeprazole 20 MG CAPSULE.DR PO (05:36)
[2020-07-09] MEDS: Digoxin 0.25 MG TABLET PO (05:37)
[2020-07-09 06:49] LABS: Hematocrit 27.4 % (37-47); Hemoglobin 8.6 g/dl (12.0-16.0); Mean Corpuscular HGB Conc 31.4 g/dl (31.0-35.0); Mean Corpuscular Hemoglobin 27.9 pg (27.0-33.0); Mean Platelet Volume 10.3 fL (9.4-12.3); Platelet Count 387 X10*3/uL (160-400); Red Blood Count 3.08 X10*6/uL (4.20-5.50); Red Cell Distribution Width 15.2 % (11.0-16.0); White Blood Count 9.7 X10*3/uL (4.8-10.8)
[2020-07-09 07:15] LABS: Anion Gap 13 (12-20); Blood Urea Nitrogen 10 mg/dL (9-16); Calcium 8.2 mg/dL (8.4-10.2); Carbon Dioxide 25 mmol/L (22-29); Chloride 102 mmol/L (96-108); Creatinine Clr Calc Pharmacy 76.4; Estimated Glomerular Filt Rate > 60; Glucose Random 195 mg/dL (60-115); Potassium 3.8 mmol/l (3.3-5.1); Sodium 136 mmol/L (135-145)
[2020-07-09 07:36] LABS: Glucose, Whole Blood 170 mg/dL (60-115)
[2020-07-09] MEDS: Insulin Lispro 100 UNIT/ML 3 ML VIAL SUBCUT ×2 (08:38→11:16)
[2020-07-09] MEDS: 0.9 % Sodium Chloride Flush 3 ML SYRINGE IVFLUSH ×4 (08:39→14:29)
[2020-07-09] MEDS: Sodium Bicarbonate 650 MG TABLET PO (08:41)
[2020-07-09] MEDS: polyethylene glycoL 3350 17 GM POWD.PACK PO (08:42)
[2020-07-09] MEDS: Metoprolol Tartrate 100 MG TABLET PO (08:43)
[2020-07-09] MEDS: Losartan Potassium 50 MG TABLET PO (08:43)
[2020-07-09] MEDS: amLODIPine Besylate 10 MG TABLET PO (08:44)
[2020-07-09] MEDS: Apixaban 5 MG TABLET PO (08:44)
[2020-07-09] MEDS: Docusate Sodium 100 MG CAPSULE PO (08:44)
[2020-07-09] MEDS: DULoxetine HCl 60 MG CAPSULE.DR PO (08:44)
[2020-07-09] MEDS: Nystatin Cream 15 GM TUBE 1 APPL TOPICAL (08:45)
[2020-07-09] MEDS: 0.9 % Sodium Chloride Flush 10 ML SYRINGE 5 ML IVFLUSH ×2 (08:45→14:29)
--- NOTE | 2020-07-09 08:53 | P.PNGS_ITS ---
Subjective Subjective Date of Service: 07/09/20 Interval history: Was in rapid AFib again last night. Reports no problems with shortness of breath or chest pain. Would like to take shower. States she has been working with physical therapy, but that she is weak and balance is poor. Physical Exam Vital Signs: Vital Signs: Last Vital Signs Temp 98.3 F 07/09/20 07:45 Pulse 102 H 07/09/20 08:44 Resp 18 07/09/20 07:45 BP 165/86 H 07/09/20 08:44 Pulse Ox 99 07/09/20 07:45 Body Mass Index 32.3 Const: Other: Alert, no apparent distress Extrem: Other: Left foot 1st toe transmetatarsal amputation site is clean. Incision is well approximated. No significant edema or erythema. Progress Note: A&P Assessment and plan (1) Acute osteomyelitis of metatarsal bone of left foot: Status: Acute Assessment and Plan: Doing well with regard to recent left 1st toe amputation. Continue physical therapy. PICC line in place for IV antibiotics. Will go to short-term rehabilitation when medically stable. Fall Risk Details Current Medications: Current Medications Generic Name Dose Route Start Last Admin Trade Name Freq PRN Reason Stop Dose Admin Acetaminophen 650 mg 06/20/20 06:39 07/08/20 11:28 Acetaminophen 325 Mg Tablet PO 650 mg Q6H PRN Administration Pain, Mild (Pain Scale 1-3) Amlodipine Besylate 10 mg 06/20/20 09:00 07/09/20 08:44 Amlodipine Besylate 10 Mg Tablet PO 10 mg DAILY [facility] Administration Protocol Apixaban 5 mg 07/07/20 09:00 07/09/20 08:44 Apixaban 5 Mg Tablet PO 5 mg BID [facility] Administration Aspirin 81 mg 06/23/20 21:00 07/08/20 20:36 Aspirin Enteric Coated 81 Mg Tablet.Dr PO 81 mg BEDTIME [facility] Administration Atorvastatin Calcium 10 mg 06/20/20 21:00 07/08/20 20:37 Atorvastatin Calcium 10 Mg Tablet PO 10 mg BEDTIME [facility] Administration Benzocaine 1 lozenge 06/30/20 13:58 07/08/20 20:48 Throat Lozenge, Medicated Lozenge MUCOUS MEM 1 lozenge Q2H PRN Administration Sore Throat Docusate Sodium 100 mg 06/20/20 06:39 Docusate Sodium 100 Mg Capsule PO DAILY PRN Constipation Docusate Sodium 100 mg 06/24/20 21:00 07/09/20 08:44 Docusate Sodium 100 Mg Capsule PO 100 mg BID [facility] Administration Duloxetine HCl 60 mg 06/20/20 09:00 07/09/20 08:44 Duloxetine Hcl 60 Mg Capsule. PO 60 mg DAILY [facility] Administration Ceftriaxone Sodium 1 gm/ 50 mls @ 100 mls/hr 06/29/20 18:00 07/08/20 18:06 Sodium Chloride IV Infused Q24H [facility] Infusion Insulin Glargine 20 unit 06/29/20 21:00 07/08/20 20:55 Insulin Glargine,Hum.Rec.Anlog 100 Unit/Ml 10 Ml Vial SUBCUT 20 unit BEDTIME [facility] Administration Insulin Human Lispro 0 unit 06/20/20 07:30 07/09/20 08:38 Insulin Lispro 100 Unit/Ml 3 Ml Vial SUBCUT 2 unit QIDACHS [facility] Administration Protocol Levothyroxine Sodium 75 mcg 06/24/20 06:00 07/09/20 05:36 Levothyroxine Sodium 75 Mcg Tablet PO 75 mcg DAILY@0600 [facility] Administration Losartan Potassium 50 mg 06/20/20 09:00 07/09/20 08:43 Losartan Potassium 50 Mg Tablet PO 50 mg DAILY [facility] Administration Protocol Metoprolol Tartrate 100 mg 07/07/20 21:00 07/09/20 08:43 Metoprolol Tartrate 100 Mg Tablet PO 100 mg BID [facility] Administration Protocol Nystatin 1 appl 07/06/20 21:00 07/09/20 08:45 Nystatin Cream 15 Gm Tube TOPICAL 1 appl BID [facility] Administration Protocol Omeprazole 20 mg 06/20/20 07:30 07/09/20 05:36 Omeprazole 20 Mg Capsule. PO 20 mg DAILY@0630 [facility] Administration Ondansetron HCl 4 mg 06/20/20 06:39 06/30/20 15:56 Ondansetron Hcl 4 Mg/2 Ml Vial IVPUSH 4 mg Q8H PRN Administration Nausea and Vomiting Oxycodone HCl 2.5 mg 07/08/20 11:39 07/08/20 20:47 Oxycodone Hcl Immed Release 5 Mg Tablet PO 2.5 mg Q6H PRN Administration Pain, Severe (Pain Scale 7-10) Pharmacy Consult 1 each 06/20/20 03:31 Consult Rx Perform Med Rec MISCELLANE ONCE PRN Consult order Pharmacy Consult 1 each 06/28/20 16:02 Consult Rx Vancomycin Dosing MISCELLANE DAILY PRN Consult order Polyethylene Glycol 17 gm 06/25/20 10:25 07/09/20 08:42 Polyethylene Glycol 3350 17 Gm Powd.Pack PO 17 gm DAILY [facility] Administration Risperidone 0.25 mg 06/22/20 21:00 07/08/20 20:36 Risperidone 0.25 Mg Tablet PO 0.25 mg BEDTIME [facility] Administration Sodium Bicarbonate 650 mg 06/30/20 09:00 07/09/20 08:41 Sodium Bicarbonate 650 Mg Tablet PO 650 mg BID [facility] Administration Sodium Chloride 3 ml 06/20/20 08:00 07/09/20 08:45 0.9 % Sodium Chloride Flush 3 Ml Syringe IVFLUSH 3 ml QSHIFT [facility] Administration Sodium Chloride 5 ml 07/08/20 15:00 07/09/20 08:45 0.9 % Sodium Chloride Flush 10 Ml Syringe IVFLUSH 5 ml TID [facility] Administration Trazodone HCl 50 mg 06/20/20 06:43 07/04/20 20:17 Trazodone Hcl 50 Mg Tablet PO 50 mg BEDTIME PRN Administration insomnia Time Spent With Patient Time: Total time spent is greater than 50% in coordination of care (as documented) at patient's floor/unit and/or counseling patient: Time with patient: 15 - 24 minutes
--- NOTE | 2020-07-09 09:54 | PM.PNCARD ---
Subjective Subjective Date of Service: 07/09/20 Principal diagnosis: Afib Interval history: She has some intermittent shortness of breath. Not clear of the etiology. Not having any palpitations. Review of Systems Review of Systems Yes all other systems are reviewed and are negative Cardiovascular: Reports as per HPI, Reports no additional cardiovascular complaints, Denies Abdominal Cramping after Meds, Denies Abdominal Distension, Denies acrocyanosis, Denies chest pain, Denies chest pain at rest, Denies chest pain with activity, Denies Epigastric Pain, Denies epigastric discomfort, Denies syncope, Denies lightheadedness, Denies palpitations, Reports dyspnea and Reports dyspnea on exertion Respiratory: Reports dyspnea and Reports dyspnea on exertion Reports confusion and Denies syncope Psychiatric: Reports confusion Endocrine: Denies palpitations Physical Exam Vital Signs: Last Vital Signs Temp 98.3 F 07/09/20 07:45 Pulse 102 H 07/09/20 08:44 Resp 18 07/09/20 07:45 BP 165/86 H 07/09/20 08:44 Pulse Ox 99 07/09/20 07:45 Body Mass Index 32.3 Const General: confusion Orientation/consciousness: confusion HENNJ Other: Unremarkable Neck Neck: Yes normal visual inspection Chest Chest palpation & inspection: normal inspection of the chest Resp Auscultation: clear to auscultation bilaterally, no crackles and no wheezes Cardio Jugular venous distension: no JVD Palpation: normal PMI Heart sounds: S1 normal heart sound present, S2 normal heart sound present, no gallops, no murmurs and no rubs GI Palpation (GI): Soft to palpation Back/Spine/Pelvis Other: unremarkable Skin General skin exam: no rashes or lesions noted Neuro General: confusion Extrem General: Yes no clubbing, cyanosis or edema Psych Mental Status: mental status grossly normal Results Labs and Meds Result diagrams: 07/09/20 06:26 07/09/20 06:26 Lab results: Laboratory Results - last 24 hr 07/08/20 07/08/20 07/08/20 11:21 16:46 20:04 WBC RBC Hgb Hct MCV MCH MCHC RDW Plt Count MPV Absolute Nucleated RBC Nucleated RBC % (auto) Sodium Potassium Chloride Carbon Dioxide Anion Gap BUN Creatinine Estim Creat Clear Calc Estimated GFR POC Glucose 225 H 210 H 188 H Random Glucose Calcium 07/09/20 07/09/20 07/09/20 06:26 06:26 07:33 WBC 9.7 RBC 3.08 L Hgb 8.6 L Hct 27.4 L MCV 89.0 MCH 27.9 MCHC 31.4 RDW 15.2 Plt Count 387 MPV 10.3 Absolute Nucleated RBC 0.000 Nucleated RBC % (auto) 0.0 Sodium 136 Potassium 3.8 Chloride 102 Carbon Dioxide 25 Anion Gap 13 BUN 10 Creatinine 0.81 Estim Creat Clear Calc 76.4 Estimated GFR > 60 POC Glucose 170 H Random Glucose 195 H Calcium 8.2 L Progress Note: A&P Assessment and plan (1) Atrial fibrillation with rapid ventricular response: Status: Acute (2) Acute osteomyelitis of metatarsal bone of left foot: Status: Acute Assessment and Plan: On telemetry, her rhythm is atrial fibrillation with ventricular rates about 100/Min. Improved from before. Continue beta-blockers. She is on digoxin load and we can start her on maintenance digoxin tomorrow. Continue Eliquis. Echocardiogram with low-normal LVEF at 50-55% and without any obvious valvular pathology. Follow-up as outpatient. Fall Risk Details Current Medications: Current Medications Generic Name Dose Route Start Last Admin Trade Name Freq PRN Reason Stop Dose Admin Acetaminophen 650 mg 06/20/20 06:39 07/08/20 11:28 Acetaminophen 325 Mg Tablet PO 650 mg Q6H PRN Administration Pain, Mild (Pain Scale 1-3) Amlodipine Besylate 10 mg 06/20/20 09:00 07/09/20 08:44 Amlodipine Besylate 10 Mg Tablet PO 10 mg DAILY PAPO Administration Protocol Apixaban 5 mg 07/07/20 09:00 07/09/20 08:44 Apixaban 5 Mg Tablet PO 5 mg BID PAPO Administration Aspirin 81 mg 06/23/20 21:00 07/08/20 20:36 Aspirin Enteric Coated 81 Mg Tablet.Dr PO 81 mg BEDTIME PAPO Administration Atorvastatin Calcium 10 mg 06/20/20 21:00 07/08/20 20:37 Atorvastatin Calcium 10 Mg Tablet PO 10 mg BEDTIME PAPO Administration Benzocaine 1 lozenge 06/30/20 13:58 07/08/20 20:48 Throat Lozenge, Medicated Lozenge MUCOUS MEM 1 lozenge Q2H PRN Administration Sore Throat Docusate Sodium 100 mg 06/20/20 06:39 Docusate Sodium 100 Mg Capsule PO DAILY PRN Constipation Docusate Sodium 100 mg 06/24/20 21:00 07/09/20 08:44 Docusate Sodium 100 Mg Capsule PO 100 mg BID PAPO Administration Duloxetine HCl 60 mg 06/20/20 09:00 07/09/20 08:44 Duloxetine Hcl 60 Mg Capsule. PO 60 mg DAILY PAPO Administration Ceftriaxone Sodium 1 gm/ 50 mls @ 100 mls/hr 06/29/20 18:00 07/08/20 18:06 Sodium Chloride IV Infused Q24H COUNTS INCLUDE 234 BEDS AT THE [facility] Infusion Insulin Glargine 20 unit 06/29/20 21:00 07/08/20 20:55 Insulin Glargine,Hum.Rec.Anlog 100 Unit/Ml 10 Ml Vial SUBCUT 20 unit BEDTIME COUNTS INCLUDE 234 BEDS AT THE [facility] Administration Insulin Human Lispro 0 unit 06/20/20 07:30 07/09/20 08:38 Insulin Lispro 100 Unit/Ml 3 Ml Vial SUBCUT 2 unit QIDACHS COUNTS INCLUDE 234 BEDS AT THE [facility] Administration Protocol Levothyroxine Sodium 75 mcg 06/24/20 06:00 07/09/20 05:36 Levothyroxine Sodium 75 Mcg Tablet PO 75 mcg DAILY@0600 COUNTS INCLUDE 234 BEDS AT THE [facility] Administration Losartan Potassium 50 mg 06/20/20 09:00 07/09/20 08:43 Losartan Potassium 50 Mg Tablet PO 50 mg DAILY COUNTS INCLUDE 234 BEDS AT THE [facility] Administration Protocol Metoprolol Tartrate 100 mg 07/07/20 21:00 07/09/20 08:43 Metoprolol Tartrate 100 Mg Tablet PO 100 mg BID COUNTS INCLUDE 234 BEDS AT THE [facility] Administration Protocol Nystatin 1 appl 07/06/20 21:00 07/09/20 08:45 Nystatin Cream 15 Gm Tube TOPICAL 1 appl BID COUNTS INCLUDE 234 BEDS AT THE [facility] Administration Protocol Omeprazole 20 mg 06/20/20 07:30 07/09/20 05:36 Omeprazole 20 Mg Capsule. PO 20 mg DAILY@0630 COUNTS INCLUDE 234 BEDS AT THE [facility] Administration Ondansetron HCl 4 mg 06/20/20 06:39 06/30/20 15:56 Ondansetron Hcl 4 Mg/2 Ml Vial IVPUSH 4 mg Q8H PRN Administration Nausea and Vomiting Oxycodone HCl 2.5 mg 07/08/20 11:39 07/08/20 20:47 Oxycodone Hcl Immed Release 5 Mg Tablet PO 2.5 mg Q6H PRN Administration Pain, Severe (Pain Scale 7-10) Pharmacy Consult 1 each 06/20/20 03:31 Consult Rx Perform Med Rec MISCELLANE ONCE PRN Consult order Pharmacy Consult 1 each 06/28/20 16:02 Consult Rx Vancomycin Dosing MISCELLANE DAILY PRN Consult order Polyethylene Glycol 17 gm 06/25/20 10:25 07/09/20 08:42 Polyethylene Glycol 3350 17 Gm Powd.Pack PO 17 gm DAILY PAPO Administration Risperidone 0.25 mg 06/22/20 21:00 07/08/20 20:36 Risperidone 0.25 Mg Tablet PO 0.25 mg BEDTIME PAPO Administration Sodium Bicarbonate 650 mg 06/30/20 09:00 07/09/20 08:41 Sodium Bicarbonate 650 Mg Tablet PO 650 mg BID PAPO Administration Sodium Chloride 3 ml 06/20/20 08:00 07/09/20 08:45 0.9 % Sodium Chloride Flush 3 Ml Syringe IVFLUSH 3 ml QSHIFT PAPO Administration Sodium Chloride 5 ml 07/08/20 15:00 07/09/20 08:45 0.9 % Sodium Chloride Flush 10 Ml Syringe IVFLUSH 5 ml TID PAPO Administration Trazodone HCl 50 mg 06/20/20 06:43 07/04/20 20:17 Trazodone Hcl 50 Mg Tablet PO 50 mg BEDTIME PRN Administration insomnia Time Spent With Patient Time: Total time spent is greater than 50% in coordination of care (as documented) at patient's floor/unit and/or counseling patient: Time with patient: less than 15 minutes
[2020-07-09 11:11] LABS: Glucose, Whole Blood 219 mg/dL (60-115)
--- NOTE | 2020-07-09 14:14 | PM.DS ---
DS: Providers Provider Date of admission: 06/20/20 04:15 Primary care physician: Jessie Sorensen MD Consults: 06/20/20 12:21 Consult to Neurology Routine Consulting Provider: [facility] Reason for consultation: falls, syncope Has provider been notified: No 06/23/20 14:52 Consult to Infectious Diseases Routine Consulting Provider: Jael Westfall Reason for consultation: Evaluation for sepsis. 06/24/20 01:48 Consult to Cardiology Routine Consulting Provider: [facility] Cardi[facility] Services Reason for consultation: new onset afib Has provider been notified: No 06/25/20 10:22 Consult to General Surgery Routine Consulting Provider: [facility] General Surgeons Reason for consultation: Evaluation for Lt big toe osteomyelitis. for your kind eval. 07/06/20 12:04 Consult to Wound Care Provider Routine Consulting Provider: Kenan Covarrubias Reason for consultation: right diabetic ulcer DS: Diagnosis Discharge Diagnosis (1) Atrial fibrillation with rapid ventricular response: Status: Acute (2) Acute osteomyelitis of metatarsal bone of left foot: Status: Acute (3) Osteomyelitis of great toe of left foot: Status: Acute (4) Sepsis: Status: Acute (5) Leukemoid reaction: Status: Acute (6) Multiple falls: Status: Acute (7) Acute hyponatremia: Status: Acute (8) Rhabdomyolysis: Status: Acute (9) FELIX (acute kidney injury): Status: Acute DS: Medications Discharge Medications Home Medications: Home Medications Medication Instructions Recorded Confirmed Lantus Solostar U-100 Insulin 40 unit SUBCUT BEDTIME 06/20/20 06/20/20 amlodipine 1 tab PO DAILY 06/20/20 06/20/20 aspirin 81 mg PO BEDTIME 06/20/20 06/20/20 cholecalciferol (vitamin D3) 800 units PO DAILY 06/20/20 06/20/20 cyanocobalamin (vitamin B-12) 500 mcg PO DAILY 06/20/20 06/20/20 diclofenac sodium 2 g TOPICAL BID 06/20/20 06/20/20 duloxetine 1 cap PO QAM 06/20/20 06/20/20 furosemide 1 tab PO DAILY 06/20/20 06/20/20 levothyroxine 1 tab PO DAILY 06/20/20 06/20/20 losartan 1 tab PO DAILY 06/20/20 06/20/20 melatonin 2 tab PO BEDTIME 06/20/20 06/20/20 metformin 2 tab PO BEDTIME 06/20/20 06/20/20 pantoprazole 1 tab PO DAILY 06/20/20 06/20/20 risperidone 0.25 mg PO BEDTIME 06/20/20 06/20/20 simvastatin 1 tab PO BEDTIME 06/20/20 06/20/20 trazodone 1 - 2 tab PO BEDTIME PRN 06/20/20 06/20/20 Previous Rx's Medication Instructions Recorded apixaban [Eliquis] 5 mg PO BID #60 tab 07/09/20 ceftriaxone 1 g IV Q24H 12 Days ea 07/09/20 metoprolol tartrate 100 mg PO BID #60 tab 07/09/20 DS: Summary Hospital Course Hospital Course: Admission note HPI This is a 65-year-old female with past medical history of hypertension, diabetes, carcinoid, and falls in the past who presents to the hospital with complaints of multiple falls at home. Patient reports that the 1st episode occurred on Wednesday after she came out of her bathroom, she fell on the floor, and woke up 4 hours later to the phone ringing. Patient does not remember anything of that episode, will cover confused, she denies any prodromal symptoms, she denies having any palpitations, dizziness, shortness of breath, chest pain or any other symptoms prior to the fall. She woke up DrMarifer herself to the bed. The same day in the evening, patient tried to go to the bathroom, and slipped and had a fall in her kitchen without hitting her head she was again on the floor for about 4 hours because she was too weak to get up.. She finally called [employer], EMS wanted to bring her to the hospital but patient refused. She reports that on Wednesday evening she was again walking around her apartment where she once again had a mechanical fall without loss of consciousness, she denies having any dizziness, vertigo, palpitations, chest pain, or loss of consciousness on the consecutive fall episodes. She finally agreed to come to the hospital after her 3rd fall. 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 Denies any melena or bright red blood per rectum Patient reports that she has not eaten well in last 24 hours but otherwise has been eating and drinking okay. She had few episodes of diarrhea where she took Lomotil and felt better, she denies any chest pain, no shortness of breath, no nausea or vomiting, no abdominal pain,, no urinary symptoms and no lower extremity edema. On arrival to the ED patient hemodynamically stable with no significant abnormal vitals Labs are significant for WBC count of 13.9, hemoglobin of 8.6, hematocrit 26.0, corrected sodium of 134, BUN of 24, creatinine of 1.30, random glucose of 307, AST of 169, ALT of 67, CPK of 9438, high sensitivity troponin of 54, repeated of 42.2. Hospital course The patient was admitted primarily for treatment acute kidney injury and rhabdomyolysis after having falls at home. She was treated with IV antibiotics with good response over the course of treatment as her kidney function improved back to normal. The patient was noted to be septic. Secondary to osteomyelitis in the left 1st metatarsal bone. Evaluated by Infectious Disease and General surgery. Went for surgery and had amputation of the 1st metatarsal. Blood cultures grew Streptococcus intermedius that was treated with IV ceftriaxone for total of 15 days during the hospital stay with plan to finish total of 4 weeks of IV antibiotics. She developed a new onset atrial fibrillation with rapid ventricular response during the hospital stay. Evaluated by Cardiology as an echo was done showing normal LV function. Treated with Cardizem drip and increase her metoprolol to 100 mg twice daily. She was started on Eliquis 5 mg twice daily as well. Evaluated by Physical therapy who recommended short-term rehab for her recurrent falls. Time Spent with Patient Time attestation: Total time spent providing and/or coordinating discharge services: Physical Exam Vital Signs: Vital Signs: Last Vital Signs Temp 97.3 F 07/09/20 11:12 Pulse 74 07/09/20 11:12 Resp 18 07/09/20 11:12 BP 150/76 H 07/09/20 11:12 Pulse Ox 97 07/09/20 11:12 Body Mass Index 32.3 Constitutional : Alert, oriented, not in distress Neck : Normal inspection, Supple Cardiovascular : Irregularly irregular rhythm, S1 S2, no lower extremity edema Respiratory : Good bilateral air entry, no crackles, wheezes or rhonchi Gastrointestinal: soft, lax, Normal bowel sounds, Non tender Skin : Left 1st toe amputation face is clean, covered. Inguinal fungal rash. Neurological : Alert & oriented x3, No focal deficit DS: Data Data Completed and Pending Completed studies during hospitalization [Text1]: Pending at discharge 07/03/20 10:18 Surgical [PTH] Routine Labs on day of discharge: 06/19/20 21:12 CT cervical spine wo con Stat CT head/brain wo con Stat 06/19/20 21:13 ECG 12 lead EKG Stat EKG Documentation DIRECTED 06/19/20 21:17 XR shoulder RT min 2V Stat 06/19/20 21:47 Basic Metabolic Panel Stat Creatine Kinase Total Stat Liver Panel Stat Magnesium Stat Troponin-I High Sensitivity Stat 06/19/20 21:48 Complete Blood Count Auto Diff Stat 06/19/20 22:43 Add Laboratory Test Stat 06/20/20 03:00 0.9 % Sodium Chloride [Ns] 1,000 ml IV 999 mls/hr 06/20/20 03:21 0.9 % Sodium Chloride [Ns] 1,000 ml IVCONT 999 mls/hr Transfer Order Routine 06/20/20 03:48 COVID-19 ID NOW (Rodriguez) Stat 06/20/20 03:56 Troponin-I High Sensitivity Stat 06/20/20 04:41 Acetaminophen [Tylenol] 650 mg PO ONCE ONE 06/20/20 06:39 0.9 % Sodium Chloride [Ns] 1,000 ml IVCONT 60 mls/hr 06/20/20 06:50 Physical Therapy Eval & Treat NOW 06/20/20 07:00 Enoxaparin Sodium [Lovenox] 40 mg SUBCUT Q24H 06/20/20 08:11 Glucose, Whole Blood Routine 06/20/20 09:00 Furosemide [Lasix] 40 mg PO DAILY Metoprolol Succinate ER [Toprol XL] 50 mg PO DAILY 06/20/20 09:33 Basic Metabolic Panel Routine Creatine Kinase Total Routine Ferritin Routine IRON PROFILE Routine Liver Panel Routine Vitamin B12 and Folate Routine 06/20/20 Breakfast Diabetic Diet Regular Diet 06/20/20 10:30 Add Laboratory Test Stat 06/20/20 10:32 CA echo transthoracic complete Routine traMADoL HCL [Ultram] 50 mg PO Q8H PRN 06/20/20 10:57 Glucose, Whole Blood Routine 06/20/20 Lunch Diabetic Diet 06/20/20 16:25 Glucose, Whole Blood Routine 06/20/20 16:55 Add Laboratory Test Stat 06/20/20 17:00 metFORMIN HCl [Glucophage] 2,000 mg PO DAILY@1700 06/20/20 20:11 Glucose, Whole Blood Routine 06/20/20 20:44 Glucose, Whole Blood Routine 06/20/20 21:00 Insulin Glargine,Hum.rec.anlog [Lantus] 40 unit SUBCUT BEDTIME 06/21/20 04:40 Basic Metabolic Panel Routine Complete Blood Count Auto Diff DAILY@0600 Creatine Kinase Total Routine 06/21/20 08:20 Glucose, Whole Blood Routine 06/21/20 11:46 Glucose, Whole Blood Routine 06/21/20 17:02 Glucose, Whole Blood Routine 06/21/20 20:32 Glucose, Whole Blood Routine 06/22/20 XR chest 1V Urgent 06/22/20 05:54 Basic Metabolic Panel DAILY@0600 Complete Blood Count no Diff DAILY@0600 Creatine Kinase Total Routine 06/22/20 05:58 Glucose, Whole Blood Routine 06/22/20 08:04 Glucose, Whole Blood Routine 06/22/20 08:35 Add Laboratory Test Routine 06/22/20 10:58 Metoclopramide HCl [Reglan] 10 mg PO ONCE ONE 06/22/20 11:35 Glucose, Whole Blood Routine 06/22/20 13:25 COVID-19 ID NOW (Rodriguez) Urgent 06/22/20 15:13 Metoclopramide HCl [Reglan] 10 mg IVPUSH ONCE ONE 06/22/20 17:03 Glucose, Whole Blood Routine 06/22/20 20:52 Glucose, Whole Blood Routine 06/23/20 XR chest 1V Stat 06/23/20 00:49 Morphine Sulfate 1 mg IVPUSH ONCE ONE 06/23/20 06:02 Basic Metabolic Panel DAILY@0600 Liver Panel Routine 06/23/20 06:03 Complete Blood Count no Diff DAILY@0600 06/23/20 07:13 cefTRIAXone sodium [Rocephin] 1 gm 0.9 % Sodium Chloride [Ns] 50 ml IV ONCE 06/23/20 07:27 Glucose, Whole Blood Routine 06/23/20 07:37 Lactic Acid Stat diphenhydrAMINE HCL [Benadryl] 25 mg IVPUSH Q6H PRN Blood Culture X2 [BC] Stat 06/23/20 07:43 Piperacillin Sodium/Tazobactam [Zosyn] 3.375 gm IV .STK-MED ONE 06/23/20 07:45 0.9 % Sodium Chloride [Ns] 1,000 ml IVCONT 100 mls/hr 06/23/20 07:49 Piperacillin Sodium/Tazobactam [Zosyn] 3.375 gm IV .STK-MED ONE 06/23/20 07:50 Piperacillin Sodium/Tazobactam [Zosyn] 3.375 gm IV .STK-MED ONE 06/23/20 08:00 Piperacillin Sodium/Tazobactam [Zosyn] 3.375 gm 0.9 % Sodium Chloride [Ns] 50 ml IV Q6H 06/23/20 10:30 ~Lactic Acid-LAB USE ONLY Stat 06/23/20 11:21 Glucose, Whole Blood Routine 06/23/20 13:19 ~Lactic Acid-LAB USE ONLY Stat 06/23/20 13:42 Piperacillin Sodium/Tazobactam [Zosyn] 3.375 gm IV .STK-MED ONE 06/23/20 15:00 0.9 % Sodium Chloride [Ns] 1,000 ml IVCONT 999 mls/hr Doxycycline Hyclate [Vibramycin] 100 mg 0.9 % Sodium Chloride [Ns] 250 ml IV Q12H 06/23/20 15:41 Doxycycline Hyclate [Vibramycin] 100 mg IV .STK-MED ONE 06/23/20 16:52 Glucose, Whole Blood Routine 06/23/20 21:01 Glucose, Whole Blood Routine 06/23/20 21:58 Piperacillin Sodium/Tazobactam [Zosyn] 3.375 gm IV .STK-MED ONE 06/24/20 ECG 12 lead EKG Stat XR foot LT min 3V Routine 06/24/20 00:57 LORazepam [Ativan] 0.5 mg IVPUSH ONCE ONE Metoprolol Tartrate [Lopressor] 5 mg IVPUSH ONCE ONE 06/24/20 01:04 Metoprolol Tartrate [Lopressor] 5 mg .ROUTE .STK-MED ONE 06/24/20 01:13 Piperacillin Sodium/Tazobactam [Zosyn] 3.375 gm IV .STK-MED ONE 06/24/20 01:33 EKG Documentation DIRECTED dilTIAZem HCL [Cardizem] 5 mg IVPUSH ONCE ONE 06/24/20 01:50 Doxycycline Hyclate [Vibramycin] 100 mg IV .STK-MED ONE 06/24/20 01:56 Doxycycline Hyclate [Vibramycin] 100 mg IV .STK-MED ONE 06/24/20 02:45 0.9 % Sodium Chloride [Ns] 100 ml dilTIAZem HCL [Cardizem] 125 mg IVCONT Per Protocol mg/hr 06/24/20 02:53 dilTIAZem HCL [Cardizem] 125 mg IVCONT .STK-MED ONE 06/24/20 04:15 Digoxin [Lanoxin] 0.25 mg IVPUSH ONCE ONE 06/24/20 04:58 Amiodarone/Dextrose [Nexterone] 150 mg in 100 ml IV ONCE 06/24/20 05:00 0.9 % Sodium Chloride [Ns] 500 ml Amiodarone HCL [Cordarone] 900 mg IVCONT 1 mg/min 06/24/20 05:04 Digoxin [Lanoxin] 0.5 mg IVPUSH .STK-MED ONE 06/24/20 05:09 Amiodarone HCL [Cordarone] 900 mg .ROUTE .ST-MED ONE 06/24/20 05:27 Basic Metabolic Panel DAILY@0600 Complete Blood Count no Diff DAILY@0600 Liver Panel Routine Magnesium Routine Thyroid Stimulating Hormone Routine 06/24/20 07:39 Glucose, Whole Blood Routine 06/24/20 08:40 dilTIAZem HCL [Cardizem] 10 mg IVPUSH ONCE ONE 06/24/20 08:45 0.9 % Sodium Chloride [Ns] 100 ml dilTIAZem HCL [Cardizem] 125 mg IVCONT Per Protocol mg/hr 06/24/20 08:56 Piperacillin Sodium/Tazobactam [Zosyn] 3.375 gm IV .STK-MED ONE 06/24/20 09:00 Enoxaparin Sodium [Lovenox] 80 mg SUBCUT Q12H 06/24/20 09:28 dilTIAZem HCL [Cardizem] 125 mg IVCONT .STK-MED ONE 06/24/20 11:25 Glucose, Whole Blood Routine 06/24/20 12:20 ECG 12 lead EKG Routine 06/24/20 13:35 Glucose, Whole Blood Routine 06/24/20 13:55 vancomycin HCL 2,000 mg 0.9 % Sodium Chloride [Ns] 500 ml IV ONCE 06/24/20 14:19 Metoprolol Tartrate [Lopressor] 5 mg IVPUSH ONCE ONE 06/24/20 14:30 Piperacillin Sodium/Tazobactam [Zosyn] 3.375 gm IV .STK-MED ONE 06/24/20 14:39 vancomycin HCL 1,500 mg 0.9 % Sodium Chloride [Ns] 250 ml IV NOW 06/24/20 15:00 Add Laboratory Test Urgent 06/24/20 15:04 vancomycin HCL 750 mg IV .STK-MED ONE 06/24/20 15:23 Magnesium Sulfate/H2O 2 gm in 50 ml IV ONCE 06/24/20 15:31 Blood Culture X2 [BC] Routine 06/24/20 15:32 Vancomycin Trough Routine 06/24/20 15:53 Glucose, Whole Blood Routine 06/24/20 17:29 dilTIAZem HCL [Cardizem] 125 mg IVCONT .STK-MED ONE 06/24/20 18:13 B Type Natriuretic Peptide Routine 06/24/20 20:41 Piperacillin Sodium/Tazobactam [Zosyn] 3.375 gm IV .STK-MED ONE 06/24/20 20:52 Glucose, Whole Blood Routine 06/25/20 CT abdomen pelvis wo con Urgent US venous duplex LE BI Routine 06/25/20 02:00 vancomycin HCL 1,000 mg 0.9 % Sodium Chloride [Ns] 250 ml IV Q12H vancomycin HCL 1,500 mg 0.9 % Sodium Chloride [Ns] 250 ml IV Q12H vancomycin HCL 750 mg 0.9 % Sodium Chloride [Ns] 250 ml IV Q12H 06/25/20 02:17 Piperacillin Sodium/Tazobactam [Zosyn] 3.375 gm IV .STK-MED ONE 06/25/20 03:00 vancomycin HCL 750 mg 0.9 % Sodium Chloride [Ns] 250 ml IV Q12H 06/25/20 03:11 vancomycin HCL 750 mg IV .STK-MED ONE 06/25/20 03:17 dilTIAZem HCL [Cardizem] 125 mg IVCONT .STK-MED ONE 06/25/20 05:20 Complete Blood Count no Diff DAILY@0600 D Dimer Routine Magnesium Routine 06/25/20 08:26 Furosemide [Lasix] 20 mg IVPUSH ONCE ONE 06/25/20 09:00 Glucose, Whole Blood Routine 06/25/20 09:18 Piperacillin Sodium/Tazobactam [Zosyn] 3.375 gm IV .STK-MED ONE 06/25/20 11:18 Glucose, Whole Blood Routine 06/25/20 11:39 traMADoL HCL [Ultram] 50 mg PO Q6H PRN 06/25/20 12:27 dilTIAZem HCL [Cardizem] 125 mg IVCONT .STK-MED ONE 06/25/20 12:33 Furosemide [Lasix] 20 mg IVPUSH ONCE ONE 06/25/20 14:00 dilTIAZem HCL [Cardizem] 30 mg PO QID 06/25/20 14:39 Piperacillin Sodium/Tazobactam [Zosyn] 3.375 gm IV .STK-MED ONE 06/25/20 Lunch Diabetic Diet 06/25/20 16:24 vancomycin HCL 750 mg IV .STK-MED ONE 06/25/20 16:47 Glucose, Whole Blood Routine 06/25/20 20:26 Piperacillin Sodium/Tazobactam [Zosyn] 3.375 gm IV .STK-MED ONE 06/25/20 20:43 Glucose, Whole Blood Routine 06/26/20 02:13 Piperacillin Sodium/Tazobactam [Zosyn] 3.375 gm IV .STK-MED ONE 06/26/20 02:52 vancomycin HCL 750 mg IV .STK-MED ONE 06/26/20 07:00 Basic Metabolic Panel DAILY@0600 Vancomycin Trough Routine 06/26/20 07:17 Complete Blood Count no Diff DAILY@0600 06/26/20 07:54 Glucose, Whole Blood Routine 06/26/20 08:26 Piperacillin Sodium/Tazobactam [Zosyn] 3.375 gm IV .STK-MED ONE 06/26/20 11:09 Glucose, Whole Blood Routine 06/26/20 12:20 EKG Documentation DIRECTED 06/26/20 13:21 Piperacillin Sodium/Tazobactam [Zosyn] 3.375 gm IV .STK-MED ONE 06/26/20 14:05 Vancomycin Trough Routine 06/26/20 16:53 Glucose, Whole Blood Routine 06/26/20 19:51 Glucose, Whole Blood Routine 06/26/20 20:47 Glucose, Whole Blood Routine 06/26/20 21:06 Piperacillin Sodium/Tazobactam [Zosyn] 3.375 gm IV .STK-MED ONE 06/27/20 01:51 Piperacillin Sodium/Tazobactam [Zosyn] 3.375 gm IV .STK-MED ONE 06/27/20 02:34 vancomycin HCL 750 mg IV .STK-MED ONE 06/27/20 08:17 Piperacillin Sodium/Tazobactam [Zosyn] 3.375 gm IV .STK-MED ONE 06/27/20 08:21 Glucose, Whole Blood Routine 06/27/20 10:25 Complete Blood Count Man Dif Routine 06/27/20 11:19 Glucose, Whole Blood Routine 06/27/20 12:55 dilTIAZem HCL CD [Cardizem CD] 120 mg PO DAILY 06/27/20 13:11 Piperacillin Sodium/Tazobactam [Zosyn] 3.375 gm IV .STK-MED ONE 06/27/20 13:14 Basic Metabolic Panel Urgent Vancomycin Random Stat 06/27/20 13:41 Occupational Therapy Eval & Treat NEEDED 06/27/20 14:56 Potassium Chloride ER [Klor-Con] 30 meq PO ONCE ONE 06/27/20 16:44 Glucose, Whole Blood Routine 06/27/20 20:52 Glucose, Whole Blood Routine 06/27/20 21:23 Glucose, Whole Blood Routine 06/27/20 21:27 Piperacillin Sodium/Tazobactam [Zosyn] 3.375 gm IV .STK-MED ONE 06/28/20 01:54 Piperacillin Sodium/Tazobactam [Zosyn] 3.375 gm IV .STK-MED ONE 06/28/20 05:23 Basic Metabolic Panel DAILY@0600 Complete Blood Count Man Dif Routine Magnesium Routine 06/28/20 07:29 Glucose, Whole Blood Routine 06/28/20 08:29 Potassium Chloride ER [Klor-con] 20 meq PO ONCE ONE 06/28/20 08:41 Piperacillin Sodium/Tazobactam [Zosyn] 3.375 gm IV .STK-MED ONE 06/28/20 10:58 Glucose, Whole Blood Routine 06/28/20 11:46 Piperacillin Sodium/Tazobactam [Zosyn] 3.375 gm IV .STK-MED ONE 06/28/20 16:15 0.9 % Sodium Chloride [Ns] 1,000 ml IVCONT 100 mls/hr 06/28/20 16:50 Glucose, Whole Blood Routine 06/28/20 17:00 vancomycin HCL 1,500 mg 0.9 % Sodium Chloride [Ns] 250 ml IV Q24H 06/28/20 17:50 Add Laboratory Test Routine 06/28/20 18:00 LORazepam [Ativan] 0.25 mg IVPUSH ONCE ONE 06/28/20 20:21 Blood Culture X2 [BC] Routine 06/28/20 20:48 Glucose, Whole Blood Routine 06/28/20 21:36 Piperacillin Sodium/Tazobactam [Zosyn] 3.375 gm IV .STK-MED ONE 06/29/20 01:19 Piperacillin Sodium/Tazobactam [Zosyn] 3.375 gm IV .STK-MED ONE 06/29/20 06:23 Basic Metabolic Panel DAILY@0600 Complete Blood Count Man Dif Routine 06/29/20 07:50 Glucose, Whole Blood Routine 06/29/20 08:21 Piperacillin Sodium/Tazobactam [Zosyn] 3.375 gm IV .STK-MED ONE 06/29/20 08:33 Piperacillin Sodium/Tazobactam [Zosyn] 3.375 gm IV .STK-MED ONE Potassium Chloride ER [Klor-con] 40 meq PO ONCE ONE 06/29/20 08:45 Potassium Chloride/H20 10 meq in 100 ml IV Q1H 06/29/20 09:00 dilTIAZem HCL CD [Cardizem CD] 240 mg PO DAILY 06/29/20 09:09 Glucose, Whole Blood Routine 06/29/20 11:10 Glucose, Whole Blood Routine 06/29/20 13:35 Potassium Routine 06/29/20 15:28 Piperacillin Sodium/Tazobactam [Zosyn] 3.375 gm IV .STK-MED ONE 06/29/20 16:37 Glucose, Whole Blood Routine 06/29/20 18:20 cefTRIAXone sodium [Rocephin] 1 gm .ROUTE .STK-MED ONE 06/29/20 20:37 Glucose, Whole Blood Routine 06/30/20 06:06 Basic Metabolic Panel DAILY@0600 Complete Blood Count Man Dif Routine Liver Panel Routine 06/30/20 08:03 Glucose, Whole Blood Routine 06/30/20 11:24 Glucose, Whole Blood Routine 06/30/20 13:45 0.9 % Sodium Chloride [Ns] 100 ml dilTIAZem HCL [Cardizem] 125 mg IVCONT Per Protocol mg/hr 06/30/20 14:24 Add Laboratory Test Routine 06/30/20 15:42 dilTIAZem HCL [Cardizem] 125 mg IVCONT .STK-MED ONE 06/30/20 16:02 Vancomycin Random Routine 06/30/20 16:52 Glucose, Whole Blood Routine 06/30/20 17:19 cefTRIAXone sodium [Rocephin] 1 gm .ROUTE .[facility]-MED ONE 06/30/20 21:08 Glucose, Whole Blood Routine 07/01/20 00:56 dilTIAZem HCL [Cardizem] 125 mg IVCONT .[facility]-MED ONE 07/01/20 04:51 Basic Metabolic Panel DAILY@0600 Complete Blood Count Man Dif Routine 07/01/20 07:48 Glucose, Whole Blood Routine 07/01/20 09:25 OBSX1 Routine 07/01/20 10:56 Glucose, Whole Blood Routine 07/01/20 13:15 oxyCODONE HCl Immed Release [Roxicodone] 5 mg PO ONCE ONE 07/01/20 15:57 Glucose, Whole Blood Routine 07/01/20 16:26 cefTRIAXone sodium [Rocephin] 1 gm .ROUTE .[facility]-MED ONE 07/01/20 16:45 Metoprolol Succinate ER [Toprol XL] 50 mg PO DAILY 07/01/20 19:26 Glucose, Whole Blood Routine 07/02/20 CDiff with Reflex to PCR Routine 07/02/20 04:02 dilTIAZem HCL [Cardizem] 125 mg IVCONT .[facility]-MED ONE 07/02/20 08:05 Basic Metabolic Panel DAILY Glucose, Whole Blood Routine Hemoglobin and Hematocrit DAILY 07/02/20 11:01 Glucose, Whole Blood Routine 07/02/20 16:45 Glucose, Whole Blood Routine 07/02/20 17:11 cefTRIAXone sodium [Rocephin] 1 gm .ROUTE .STK-MED ONE 07/02/20 17:12 dilTIAZem HCL [Cardizem] 125 mg IVCONT .STK-MED ONE 07/02/20 Dinner NPO Diet 07/02/20 20:20 Glucose, Whole Blood Routine 07/03/20 07:29 Glucose, Whole Blood Routine 07/03/20 08:00 Lactated Ringers [Lr] 1,000 ml IV 80 mls/hr 07/03/20 08:40 Basic Metabolic Panel Urgent Complete Blood Count no Diff Urgent 07/03/20 09:00 Transfer Order Routine 07/03/20 09:22 Midazolam HCl/PF [Versed] 2 mg .ROUTE .STK-MED ONE fentaNYL citrate/PF [Sublimaze] 50 mcg .ROUTE .STK-MED ONE propofoL [Diprivan] 200 mg IVPUSH .STK-MED ONE 07/03/20 09:24 Bupivacaine MPF 0.25 % [Sensorcaine-MPF 0.25% 10 ML] 10 ml .ROUTE .STK-MED ONE 07/03/20 09:51 ceFAZolin Sodium/Dextrose,Iso [Ancef] 2 gm in 50 ml IV PREOP 07/03/20 10:04 propofoL [Diprivan] 200 mg IVPUSH .STK-MED ONE 07/03/20 10:06 Metoclopramide HCl [Reglan] 10 mg .ROUTE .STK-MED ONE 07/03/20 10:18 Surgical [PTH] Routine 07/03/20 10:37 Vital Signs Q1H Acetaminophen [Tylenol] 650 mg PO ONCE PRN fentaNYL citrate/PF [Sublimaze] 25 mcg IVPUSH Q5M PRN ondansetron HCL [Zofran] 4 mg IVPUSH ONCE PRN 07/03/20 11:07 Transfer Order Routine 07/03/20 11:11 oxyCODONE HCl Immed Release [Roxicodone] 5 mg PO Q4H PRN 07/03/20 13:23 Glucose, Whole Blood Routine 07/03/20 16:22 Glucose, Whole Blood Routine 07/03/20 17:09 cefTRIAXone sodium [Rocephin] 1 gm .ROUTE .STK-MED ONE 07/03/20 21:09 Glucose, Whole Blood Routine 07/04/20 02:47 ECG 12 lead EKG Stat 07/04/20 02:48 EKG Documentation DIRECTED 07/04/20 03:48 Metoprolol Tartrate [Lopressor] 5 mg IVPUSH ONCE ONE 07/04/20 07:19 Glucose, Whole Blood Routine 07/04/20 09:16 Basic Metabolic Panel Routine Complete Blood Count no Diff Routine 07/04/20 09:45 0.9 % Sodium Chloride [Ns] 100 ml dilTIAZem HCL [Cardizem] 125 mg IVCONT Per Protocol mg/hr dilTIAZem HCL [Cardizem] 5 mg IVPUSH ONCE ONE 07/04/20 11:22 Glucose, Whole Blood Routine 07/04/20 11:38 dilTIAZem HCL [Cardizem] 125 mg IVCONT .K-MED ONE 07/04/20 16:01 Glucose, Whole Blood Routine 07/04/20 17:09 cefTRIAXone sodium [Rocephin] 1 gm .ROUTE .[facility]-MED ONE 07/04/20 19:46 Glucose, Whole Blood Routine 07/04/20 21:00 Metoprolol Tartrate [Lopressor] 50 mg PO BID 07/05/20 06:03 Basic Metabolic Panel DAILY@0600 Complete Blood Count no Diff DAILY@0600 07/05/20 06:17 dilTIAZem HCL [Cardizem] 125 mg IVCONT .[facility] ONE 07/05/20 06:20 dilTIAZem HCL [Cardizem] 125 mg IVCONT .K-MED ONE 07/05/20 07:30 Glucose, Whole Blood Routine 07/05/20 11:36 Glucose, Whole Blood Routine 07/05/20 15:00 Metoprolol Tartrate [Lopressor] 50 mg PO TID 07/05/20 16:39 Glucose, Whole Blood Routine 07/05/20 16:56 cefTRIAXone sodium [Rocephin] 1 gm .ROUTE .STK-MED ONE 07/05/20 21:02 Glucose, Whole Blood Routine 07/06/20 05:36 Basic Metabolic Panel DAILY@0600 Complete Blood Count no Diff DAILY@0600 07/06/20 06:16 dilTIAZem HCL [Cardizem] 125 mg IVCONT .STK-MED ONE 07/06/20 07:41 Glucose, Whole Blood Routine 07/06/20 11:18 Glucose, Whole Blood Routine 07/06/20 16:44 Glucose, Whole Blood Routine 07/06/20 17:15 cefTRIAXone sodium [Rocephin] 1 gm .ROUTE .[facility] ONE 07/06/20 21:07 Glucose, Whole Blood Routine 07/07/20 02:20 dilTIAZem HCL [Cardizem] 125 mg IVCONT .[facility] ONE 07/07/20 08:01 Glucose, Whole Blood Routine 07/07/20 10:18 Metoprolol Tartrate [Lopressor] 50 mg PO ONCE ONE 07/07/20 11:26 Glucose, Whole Blood Routine 07/07/20 16:40 Glucose, Whole Blood Routine 07/07/20 18:03 cefTRIAXone sodium [Rocephin] 1 gm .ROUTE .[facility] 07/07/20 20:53 Glucose, Whole Blood Routine 07/08/20 IR cvc insert peripheral Routine 07/08/20 06:10 Complete Blood Count no Diff DAILY@0600 07/08/20 07:41 Glucose, Whole Blood Routine 07/08/20 10:44 CXR [XR chest 1V] Stat 07/08/20 11:00 Digoxin [Lanoxin] 0.25 mg IVPUSH Q6H 07/08/20 11:21 Glucose, Whole Blood Routine 07/08/20 16:46 Glucose, Whole Blood Routine 07/08/20 17:21 cefTRIAXone sodium [Rocephin] 1 gm .ROUTE .[facility] 07/08/20 20:04 Glucose, Whole Blood Routine 07/09/20 00:00 Digoxin [Lanoxin] 0.25 mg PO Q6H 07/09/20 06:26 Basic Metabolic Panel DAILY@0600 Complete Blood Count no Diff DAILY@0600 07/09/20 07:33 Glucose, Whole Blood Routine 07/09/20 11:07 Glucose, Whole Blood Routine Laboratory Last Values WBC 9.7 X10*3/uL (4.8-10.8) 07/09/20 06:26 RBC 3.08 X10*6/uL (4.20-5.50) L 07/09/20 06:26 Hgb 8.6 g/dl (12.0-16.0) L 07/09/20 06:26 Hct 27.4 % (37-47) L 07/09/20 06:26 MCV 89.0 fL (80-98) 07/09/20 06:26 MCH 27.9 pg (27.0-33.0) 07/09/20 06:26 MCHC 31.4 g/dl (31.0-35.0) 07/09/20 06:26 RDW 15.2 % (11.0-16.0) 07/09/20 06:26 Plt Count 387 X10*3/uL (160-400) 07/09/20 06:26 MPV 10.3 fL (9.4-12.3) 07/09/20 06:26 Immature Gran % (Auto) Cancelled 07/01/20 04:51 Neut % (Auto) Cancelled 07/01/20 04:51 Lymph % (Auto) Cancelled 07/01/20 04:51 [place] % (Auto) Cancelled 07/01/20 04:51 Eos % (Auto) Cancelled 07/01/20 04:51 Baso % (Auto) Cancelled 07/01/20 04:51 Lymph # (Auto) Cancelled 07/01/20 04:51 [place] # (Auto) Cancelled 07/01/20 04:51 Eos # (Auto) Cancelled 07/01/20 04:51 Baso # (Auto) Cancelled 07/01/20 04:51 Abs Immat Gran (auto) Cancelled 07/01/20 04:51 Absolute Neuts (auto) Cancelled 07/01/20 04:51 Absolute Nucleated RBC 0.000 X10*3/uL (0.0-0.012) 07/09/20 06:26 Nucleated RBC % (auto) 0.0 /100WBC (0.0-0.2) 07/09/20 06:26 Neutrophils % (Manual) 73 % (45-73) 07/01/20 04:51 Band Neutrophils % 0 % (3-5) L 07/01/20 04:51 Lymphocytes % (Manual) 14 % (20-40) L 07/01/20 04:51 Atypical Lymphs % (Man) 1 % (0-6) 06/27/20 10:25 Monocytes % (Manual) 7 % (2-11) 07/01/20 04:51 Eosinophils % (Manual) 2 % (0-4) 07/01/20 04:51 Metamyelocytes % 3 % 07/01/20 04:51 Myelocytes % 1 % 07/01/20 04:51 Abs Neuts (Manual) 11.8 X10*3/uL (2.2-7.9) H 07/01/20 04:51 Lymphocytes # (Manual) 2.3 X10*3/uL (0.6-4.8) 07/01/20 04:51 Atyp Lymphs # (Manual) 0.2 x10*3/uL 06/27/20 10:25 Monocytes # (Manual) 1.1 X10*3/uL (0.0-1.2) 07/01/20 04:51 Eosinophils # (Manual) 0.3 X10*3/UL (0.0-0.8) 07/01/20 04:51 Metamyelocytes # 0.5 X10*3/uL 07/01/20 04:51 Myelocytes # 0.2 X10*/uL 07/01/20 04:51 Platelet Estimate NORMAL (NORMAL) 07/01/20 04:51 Plt Morphology Comment NORMAL 07/01/20 04:51 RBC Morphology NORMAL 07/01/20 04:51 Polychromasia 1+ 06/29/20 06:23 Hypochromasia 1+ 06/28/20 05:23 Microcytosis 1+ 06/30/20 06:06 [place] Cells 2+ 06/29/20 06:23 D-Dimer 2178 NG/ML 06/25/20 05:20 Sodium 136 mmol/L (135-145) 07/09/20 06:26 Potassium 3.8 mmol/l (3.3-5.1) 07/09/20 06:26 Chloride 102 mmol/L (96-108) 07/09/20 06:26 Carbon Dioxide 25 mmol/L (22-29) 07/09/20 06:26 Anion Gap 13 (-20) 07/09/20 06:26 BUN 10 mg/dL (9-16) 07/09/20 06:26 Creatinine 0.81 mg/dL (0.5-1.4) 07/09/20 06:26 Estim Creat Clear Calc 76.4 07/09/20 06:26 Estimated GFR > 60 07/09/20 06:26 POC Glucose 219 mg/dL (60-115) H 07/09/20 11:07 Random Glucose 195 mg/dL (60-115) H 07/09/20 06:26 Lactic Acid 2.6 mmol/L (0.5-2.0) H* 06/23/20 07:37 Lactic Acid Fup @ 2Hr 2.5 mmol/L (0.5-2.0) H* 06/23/20 10:30 Lactic Acid Fup @ 4Hr 2.9 mmol/L (0.5-2.0) H* 06/23/20 13:19 Calcium 8.2 mg/dL (8.4-10.2) L 07/09/20 06:26 Magnesium 1.8 mg/dL (1.6-2.6) 06/28/20 05:23 Iron 18 mcg/dL (30-160) L 06/20/20 09:33 TIBC 246 mcg/dL (228-428) 06/20/20 09:33 % Saturation 7 % (15-50) L 06/20/20 09:33 Unsat Iron Binding 228 ug/dL 06/20/20 09:33 Ferritin 143 ng/mL (10-250) 06/20/20 09:33 Total Bilirubin 0.2 mg/dL (0.0-1.0) 06/30/20 06:06 Direct Bilirubin < 0.2 mg/dL (0.0-0.5) 06/30/20 06:06 AST 22 U/L (5-31) 06/30/20 06:06 ALT 18 U/L (0-31) 06/30/20 06:06 Alkaline Phosphatase 98 U/L (39-117) 06/30/20 06:06 Lactate Dehydrogenase Cancelled 06/25/20 05:20 Total Creatine Kinase 1414 U/L (26-140) H D 06/22/20 05:54 Troponin I High Sens 42.2 ng/L (<3.5-17.0) H 06/20/20 03:56 C-Reactive Protein Cancelled 06/25/20 05:20 B-Natriuretic Peptide 594 pg/mL (<100) H 06/24/20 18:13 Total Protein 6.2 g/dL (6.5-8.0) L 06/30/20 06:06 Albumin 2.8 g/dL (3.5-5.0) L 06/30/20 06:06 Vitamin B12 1317 pg/mL (200-900) H 06/20/20 09:33 Folate 11.3 ng/mL (> or = 4.0) 06/20/20 09:33 TSH 1.45 uIU/mL (0.32-4.0) 06/24/20 05:27 Urine Color YELLOW 06/23/20 08:15 Urine Appearance CLEAR 06/23/20 08:15 Urine pH 5.5 (5.0-8.0) 06/23/20 08:15 Ur Specific [place] >= 1.030 (1.005-1.025) H 06/23/20 08:15 Urine Protein 2+ MG/DL (NEG-TRACE) H 06/23/20 08:15 Urine Glucose (UA) 500 MG/DL (NEG) H 06/23/20 08:15 Urine Ketones >=80 MG/DL (NEG) 06/23/20 08:15 Urine Blood 2+ (NEG) H 06/23/20 08:15 Urine Nitrite NEG (NEG) 06/23/20 08:15 Ur Leukocyte Esterase NEG (NEG) 06/23/20 08:15 Urine RBC 1-4 /HPF (0) 06/23/20 08:15 Urine WBC 1-4 /HPF (0-4) 06/23/20 08:15 Ur Squamous Epith Cells 1+ /LPF 06/23/20 08:15 Urine Crystals TRACE /LPF 06/23/20 08:15 Urine Bacteria 3+ /LPF 06/23/20 08:15 Stool Occult Blood NEG (NEG) 07/02/20 09:25 Vancomycin Trough 17.8 mcg/mL (10.0-20.0) 06/26/20 14:05 Random Vancomycin 8.2 mcg/mL (15-20) L 06/30/20 16:02 C. difficile Toxin A&B Negative (Negative) 07/02/20 Unknown C. difficile Antigen Negative (Negative) 07/02/20 Unknown C. difficile Interpret SEE NOTE 07/02/20 Unknown SARS-CoV-2 (PCR) Cancelled 06/22/20 10:55 COVID-19 ([facility]) Negative (Negative) 06/22/20 13:25 COVID-19 Clin Com See Note 06/22/20 13:25 Discharge Plan Discharge Patient Disposition: Xfer [facility] Referrals: Jessie Orourke MD [Primary Care Provider] - Charo Georges MD [Physician] - 1 Week Discharge Medications: New ceftriaxone 1 gram Recon Soln 1 g IV Q24H 12 Days RF: 0 Eliquis 5 mg Tablet 5 mg PO BID Qty: 60 RF: 2 metoprolol tartrate 100 mg Tablet 100 mg PO BID Qty: 60 RF: 2 Continued losartan 50 mg tablet 1 tab PO DAILY RF: 0 furosemide 40 mg tablet 1 tab PO DAILY RF: 0 trazodone 50 mg tablet 1 - 2 tab PO BEDTIME PRN (Reason: insomnia) RF: 0 simvastatin 10 mg tablet 1 tab PO BEDTIME RF: 0 levothyroxine 75 mcg tablet 1 tab PO DAILY RF: 0 amlodipine 10 mg tablet 1 tab PO DAILY RF: 0 metformin 1,000 mg tablet 2 tab PO BEDTIME RF: 0 duloxetine 60 mg capsule,delayed release(DR/EC) 1 cap PO QAM RF: 0 melatonin 5 mg tablet 2 tab PO BEDTIME RF: 0 pantoprazole 40 mg tablet,delayed release (DR/EC) 1 tab PO DAILY RF: 0 aspirin 81 mg Tablet 81 mg PO BEDTIME RF: 0 cholecalciferol (vitamin D3) 400 UNITS 800 units PO DAILY RF: 0 cyanocobalamin (vitamin B-12) 500 MCG 500 mcg PO DAILY RF: 0 risperidone 0.25 mg Tablet 0.25 mg PO BEDTIME RF: 0 Lantus Solostar U-100 Insulin 100 unit/mL (3 mL) Insulin Pen 40 unit SUBCUT BEDTIME RF: 0 diclofenac sodium 1 % Gel 2 g TOPICAL BID RF: 0 Discontinued doxycycline hyclate 100 mg tablet 1 tab PO BID RF: 0 metoprolol succinate 50 mg tablet extended release 24 hr 1 tab PO DAILY RF: 0 Discharge Orders: Discharge Order (Routine); Ordered 07/09/20 Ordered By: Amilcar Quiñonez Diet: advance to usual diet Activity on Discharge: As tolerated Visit Report Forms: Patient Portal Discharge page Care Plan Goals: Read below Health Concerns: Read below Plan of Treatment: You were admitted to the hospital for evaluation of frequent falls and kidney injury . You were treated with IV fluid with good response as your kidneys improved back to baseline. You were noticed to have an open ulcer in your big toe. Evaluated by infectious disease and surgery teams who recommended amputation. Surgery went well and you were treated with IV antibiotics for bacteria growing in your blood called Streptococcus. Recommendation to finish 12 more days of IV antibiotics. You have also developed and irregular heart rhythm called atrial fibrillation with rapid heart rate. Evaluated by Cardiology and treated with IV and oral medications with good response. You were started on blood thinner called Eliquis. Increase metoprolol to 100 mg twice Daily To use Eliquis 5 mg twice Daily To finish antibiotic of ceftriaxone for 12 more days To do physical therapy at short-term rehab facility
[2020-07-09 14:25] LABS: COVID-19 Test Negative (Negative)
--- NOTE | 2020-07-09 15:11 | MHC.CR.30 ---
[address] [phone] F: [phone] Cardiac Rehab Reassessment Diagnosis: Initial Evaluation date: Total Sessions Attended: Progress Note Type: Last Progress Note Date: Medications: Medication Changes: Comments: Please sign and return to Cardiac Rehab. Thank you.
--- NOTE | 2020-07-09 15:11 | MHC.CM.PN ---
pt accepted at [facility] set for 4 today
== END 2020-07-09 16:43 | disposition skilled nursing facility (03) | DRG 503 ==
LOC: HO.ED 06-20 03:32 → HO.IMC 06-20 05:07
PROVIDERS: Hospitalist; Internal Medicine; Physician Assistant Medical; Surgery; Admitting Provider Internal Medicine; Emergency Provider Emergency Medicine; PCP Internal Medicine; Visit Provider Student in an Organized Health Care Education/Training Program
DX: T79.6XXA Traumatic ischemia of muscle, initial encounter (principal); A40.8 Other streptococcal sepsis; E87.1 Hypo-osmolality and hyponatremia; N17.9 Acute kidney failure, unspecified; M86.172 Other acute osteomyelitis, left ankle and foot; L97.419 Non-pressure chronic ulcer of right heel and midfoot with unspecified severity; L97.526 Non-pressure chronic ulcer of other part of left foot with bone involvement without evidence of necrosis; W18.30XA Fall on same level, unspecified, initial encounter; Y93.9 Activity, unspecified; Y92.039 Unspecified place in apartment as the place of occurrence of the external cause; Y99.9 Unspecified external cause status; Z20.828 Contact with and (suspected) exposure to other viral communicable diseases; R29.6 Repeated falls; Z91.81 History of falling; I10 Essential (primary) hypertension; E83.42 Hypomagnesemia; E11.69 Type 2 diabetes mellitus with other specified complication; E03.9 Hypothyroidism, unspecified; I48.0 Paroxysmal atrial fibrillation; D72.829 Elevated white blood cell count, unspecified; E11.621 Type 2 diabetes mellitus with foot ulcer; D50.9 Iron deficiency anemia, unspecified; E11.65 Type 2 diabetes mellitus with hyperglycemia; Z88.0 Allergy status to penicillin; Z88.2 Allergy status to sulfonamides; Z79.4 Long term (current) use of insulin; Z79.82 Long term (current) use of aspirin; Z79.01 Long term (current) use of anticoagulants; Z79.890 Hormone replacement therapy; Z79.899 Other long term (current) drug therapy
CPT/HCPCS: 36415; 36573; 70450; 71045; 72125; 73030; 73630; 74176; 80048; 80076; 80202; 81001; 82272; 82550; 82607; 82728; 82746; 82947; 83540; 83605; 83615; 83735; 83880; 84132; 84443; 84484; 85007; 85014; 85018; 85025; 85027; 85379; 86140; 87040; 87077; 87186; 87324; 87449; 87635; 88305; 88311; 93005; 93306; 93970; 96360; 97110; 97116; 97162; 97167; 97530; 99024; 99285; C1751; J0282; J0696; J1160; J1200; J1650; J1940; J2060; J2250; J2270; J2405; J2543; J2765; J3010; J3370; J3475; U0003

== ENCOUNTER → 2020-07-24 15:39 | Outpatient (BNVA) | payer MEDICARE, OTHER, SELFPAY | PROVIDERS: PCP Internal Medicine; Visit Provider Surgery | DX: M86.172 Other acute osteomyelitis, left ankle and foot (principal); Z89.412 Acquired absence of left great toe | CPT/HCPCS: 99212 ==

== ENCOUNTER → 2020-08-06 15:29 | Outpatient (BNVA) | payer MEDICARE, OTHER, SELFPAY | PROVIDERS: Visit Provider Internal Medicine | DX: Z13.89 Encounter for screening for other disorder (principal) | CPT/HCPCS: 99212 ==

== ENCOUNTER 2020-08-14 00:29 | Inpatient (IN) | payer MEDICARE, OTHER, SELFPAY ==
[2020-08-14] VITALS (17 sets, daily range): BP systolic 100–146; BP diastolic 68–86; PULSE 80–124; RESP 12–26; TEMP 36.1–36.8; O2SAT 95–100; BMI 27.0
--- NOTE | 2020-08-14 | MR_ITS ---
EXAMINATION: MR LUMBAR SPINE WITHOUT AND WITH CONTRAST CLINICAL INFORMATION: Osteomyelitis. COMPARISON: CT lumbar spine from 08/14/2020. TECHNIQUE: MRI of the lumbar spine was obtained using routine sequences without and following the administration of 7 mL of Gadavist intravenous contrast. FINDINGS: Transitional vertebral anatomy. There is partial lumbarization of S1 with fusion of the right transverse process with the sacral ala and nonfusion of the left transverse process with the sacral ala. Rudimentary S1-S2 intervertebral disc. Mild degenerative grade 1 anterolisthesis of L5 on S1. Otherwise, normal anatomic alignment. Extensive marrow replacing edema throughout the L4 and L5 vertebral bodies. There is heterogeneous enhancement throughout the L4 and L5 vertebral bodies. Partially enhancing fluid collection within the L4-L5 disc space with irregular destruction of the L4-L5 endplates. There is a partially enhancing collection within the ventral epidural space that extends from the L4-L5 disc space superiorly posterior to the L4 vertebral body, measuring 1 x 0.7 x 1.3 cm. Furthermore, there is enhancing circumferential phlegmonous engorgement of the epidural space from the level of L2-L5. Chronic anterior wedge deformity of L1 with 25% loss of anterior body height. No residual marrow edema. The remaining vertebral body heights are largely maintained. No additional suspicious marrow edema or enhancement. Small prevertebral collection anterior to the L4-L5. Moderate soft tissue edema/enhancement along the medial aspects of the psoas musculature from the level of L2-S1. No evidence of psoas abscess formation. The conus medullaris terminates at the level of L1. The distal spinal cord is normal in appearance. No abnormal contrast enhancement. Moderate subcutaneous edema within the soft tissues of the back from L1-L5. Moderate edema and enhancement surrounding the the L4-L5 facets. No demonstrated discrete fluid collection within the soft tissues of the back. Sigmoid diverticulosis without evidence of diverticulitis. There is a 3.5 cm T2 hyperintense cyst within the upper pole the right kidney. Otherwise, limited evaluation of the intra-abdominal structures without significant abnormalities. The abdominal aorta is of normal contour and caliber. AXIAL SPINAL LEVELS: L1-L2: Moderate diffuse disc bulge eccentric to the left. There is moderate bilateral facet joint arthropathy. There is moderate left and mild right neural foraminal stenosis. There is mild narrowing of the left subarticular zone with no overt spinal canal stenosis centrally. L2-L3: Mild diffuse disc bulge. There is mild bilateral facet joint arthropathy. There is moderate left and mild right neural foraminal stenosis. There is partial engorgement of the epidural space with mild to moderate narrowing of the spinal canal. L3-L4: Moderate diffuse disc bulge. There is mild to moderate bilateral facet joint arthropathy. There is moderate left and mild right neural foraminal stenosis. There is engorgement of the epidural space with moderate effacement of the dural sac. L4-L5: Moderate diffuse disc bulge. Enhancing collection within the left subarticular zone extending superiorly. There is severe bilateral facet joint arthropathy. There is moderate to severe bilateral neural foraminal stenosis. There is engorgement of the epidural space with moderate to severe effacement of the dural sac. L5-S1: Moderate diffuse disc bulge exacerbated by uncovering from anterolisthesis. There is severe bilateral facet joint arthropathy. There is mild bilateral neural foraminal stenosis. There is engorgement of the epidural space with moderate effacement of the dural sac. MR/MR lumbar spine wo/w con IMPRESSION: Transitional vertebral anatomy. There is partial lumbarization of S1. Destructive changes of the L4-L5 disc space with enhancing marrow-replacing edema throughout the L4 and L5 vertebral bodies. Findings are consistent with discitis-osteomyelitis complex in the appropriate clinical setting. Moderate edema and enhancement surrounding the L4-L5 facets. There is a small epidural collection extending from the L4-L5 disc space posterior to the L4 vertebral body. Phlegmonous engorgement of the epidural space from the level of L2-L5. There is also a small collection extending into the prevertebral space at the level of L4-L5. Moderate enhancing edema along the medial margins of the psoas musculature bilaterally. No discrete psoas abscess. These changes lead to moderate to severe effacement of the dural sac from L2-S1.
--- NOTE | ~2020-08-14 | XR_ITS ---
EXAMINATION: XR CHEST CLINICAL INFORMATION: Check PICC line placement COMPARISON: Previous chest x-ray most recent June 2020 TECHNIQUE: Frontal view of the chest was obtained. FINDINGS: The cardiac silhouette does not appear enlarged. There is abnormal contour to the AP window region. This may be related to patient positioning/rotation to the left. There is a right upper extremity PICC line with tip projecting over the SVC. The lungs are clear. There is no pleural effusion. There are degenerative changes of the spine and right shoulder joint. XR/XR chest 1V IMPRESSION: Right upper extremity PICC line tip projects over SVC. Abnormal contour to the left AP window region. This may be related to patient rotation/positioning. Follow-up PA and lateral chest x-ray is recommended. If radiographic abnormality persists, follow-up chest CT scan with IV contrast would be recommended.
--- NOTE | ~2020-08-14 | CT_ITS ---
EXAMINATION: CT CHEST WITHOUT CONTRAST CLINICAL INFORMATION: Abnormal prominence of AP window on chest x-ray. COMPARISON: None TECHNIQUE: Multidetector volumetric CT imaging of the chest was done. Axial MIP volume rendering provided. Sagittal and coronal reformatted images were obtained. This CT examination was performed using dose optimization techniques as appropriate, variously including the following: *Automated exposure control *Adjustment of mA and/or kV according to patient size (this includes techniques or standardized protocols for targeted exams where dose is matched to indication/reason for exam; i.e. extremities or head) *Use of iterative reconstruction technique DLP: 248 mGy-cm. FINDINGS: TELEPHONE INSTALLER: Unremarkable. LUNGS: The lungs are well expanded and clear of acute pneumonic consolidation. There is a 2 mm nodule left upper lobe laterally axial image 150/5, 2 mm nodule within the left major fissure axial image 227/5 and 232/5, likely fissural lymph nodes. No additional nodules seen. Noted ground-glass density seen. MEDIASTINUM: The main pulmonary artery is enlarged measuring 4.5 x 4.8 cm in axial and sagittal views.. The left pulmonary artery is enlarged as well measuring 3.8 cm. The right pulmonary artery measures 2.4 cm. The aorta is of normal caliber. The central trachea and the bronchi are widely patent. No abnormal-sized mediastinal lymph nodes or mass seen. There is no pericardial effusion. PLEURA: There is no pleural effusion. No pleural mass or thickening. AXILLA: No abnormal axillary lymph nodes seen. The chest wall appears unremarkable. UPPER ABDOMEN: Visualized liver, spleen, pancreas and bilateral adrenal glands are unremarkable. The gallbladder has been surgically removed. OSSEOUS STRUCTURES: There is mild degenerative ventral spurring mid dorsal spine. No lytic process. CT/CT chest wo con IMPRESSION: Enlarged main and left pulmonary artery question uterus versus pulmonary venous hypertension versus aneurysm. Correlated with ultrasound cardiac or contrast-enhanced CT chest. Small pulmonary nodules. Fissural nodules are likely small lymph nodes. Gallbladder has been surgically removed.
--- NOTE | ~2020-08-14 | XR_ITS ---
EXAMINATION: XR CHEST CLINICAL INFORMATION: Abnormal chest x-ray COMPARISON: 08/19/2020 at 2:43 PM TECHNIQUE: 2 views of the chest were obtained. FINDINGS: Again seen is abnormal prominence of the aorticopulmonary window. Lungs are well-expanded and clear. Right upper extremity PICC line seen with catheter tip to the midsuperior vena cava. XR/XR chest 2V IMPRESSION: Again seen is abnormal prominence of the left AP window. This could reflect left hilar lymphadenopathy or a mass, less likely an enlarged vascular structure as it appears to be separate from the aorta. Recommend contrast-enhanced chest CT for further evaluation.
--- NOTE | 2020-08-14 00:45 | CT_ITS ---
EXAMINATION: CT LUMBAR SPINE WITHOUT CONTRAST CLINICAL INFORMATION: Back pain. COMPARISON: 06/25/2020. TECHNIQUE: Contiguous helical images of the lumbar spine were obtained without IV contrast. Multiplanar reconstructions were performed. Evaluation is significantly limited secondary to extensive patient motion artifact. This CT examination was performed using dose optimization techniques as appropriate, variously including the following: *Automated exposure control *Adjustment of mA and/or kV according to patient size (this includes techniques or standardized protocols for targeted exams where dose is matched to indication/reason for exam; i.e. extremities or head) *Use of iterative reconstruction technique DLP; 511 mGy-cm FINDINGS: The visualized lung bases are clear. The visualized portions of the liver are of normal size and attenuation. The patient is status post cholecystectomy. Surgical clips are identified. There is no abdominal or pelvic free fluid. There is neither hydronephrosis nor nephrolithiasis. There is sigmoid diverticulosis without evidence of diverticulitis. Otherwise, visualized unopacified loops of small and large bowel are unremarkable. Since the prior exam, there is new demonstration of erosive change about the inferior endplate of L4 in the superior endplate of L5. There is associated sclerotic change within the bodies of each vertebra, slightly increased from prior exam. About each vertebra, there is increasing new bone formation. There is nonspecific soft tissue prominence about each vertebral. This is not discrete and contiguous with the adjacent psoas muscles. There are stable anterior displacement of L5 in relation to S1. The remaining lumbar vertebra are in normal alignment. CT/CT lumbar spine wo con IMPRESSION: Increase in the disc space between L4 and L5 secondary to destructive erosive changes within the inferior endplate of L4 and the superior endplate of L5. There is adjacent ill-defined soft tissue prominence and new bone formation noted adjacent to the vertebra. The appearance is most suspicious for infection, specifically osteomyelitis/discitis. No drainable fluid collections are present. No abdominal or pelvic free fluid.
--- NOTE | 2020-08-14 00:46 | ECG_ITS ---
Test Reason : A FIB Blood Pressure : / mmHG Vent. Rate : 105 BPM Atrial Rate : 093 BPM P-R Int : 000 ms QRS Dur : 086 ms QT Int : 382 ms P-R-T Axes : 000 020 066 degrees QTc Int : 504 ms Atrial fibrillation with rapid ventricular response with premature ventricular or aberrantly conducted complexes Abnormal ECG When compared with ECG of 04-JUL-2020 03:18, Nonspecific T wave abnormality, improved in Anterolateral leads Referred By: Josiane Jules Electronically Signed By:STEFANY MAYS MD
--- NOTE | 2020-08-14 00:54 | ED.BACK ---
HPI - Back Pain/Injury General Chief Complaint: Back Pain/Injury Stated Complaint: back pain Time Seen by Provider: 08/14/20 00:31 Source: patient and EMS Mode of arrival: EMS Limitations: no limitations History of Present Illness HPI Narrative: Patient comes emergency room complaining lower back pain. Patient was recently discharged from short-term rehab. Patient states she has been home for approximately 1 week. Patient states since she got home, she has been having worsening lower back pain. Of note, patient was admitted from June 20 through July 09 for multiple falls, acute kidney injury, sepsis secondary to osteomyelitis, amputation of 1st metatarsal, a new onset atrial fibrillation now on Eliquis. Patient was then sent to rehab, and discharged from short-term rehab 5-6 days ago. Other than the back pain, patient states that she has been doing well. Patient denies injuries, no fever or chills, no falls MD elicited complaint: back pain Related Data Home Medications Medication Instructions Recorded Confirmed Lantus Solostar U-100 Insulin 40 unit SUBCUT BEDTIME 06/20/20 08/13/20 amlodipine 1 tab PO DAILY 06/20/20 08/13/20 aspirin 81 mg PO BEDTIME 06/20/20 08/13/20 cholecalciferol (vitamin D3) 800 units PO DAILY 06/20/20 08/13/20 cyanocobalamin (vitamin B-12) 500 mcg PO DAILY 06/20/20 08/13/20 diclofenac sodium 2 g TOPICAL BID 06/20/20 08/13/20 duloxetine 1 cap PO QAM 06/20/20 08/13/20 furosemide 1 tab PO DAILY 06/20/20 08/13/20 levothyroxine 1 tab PO DAILY 06/20/20 08/13/20 losartan 1 tab PO DAILY 06/20/20 08/13/20 melatonin 2 tab PO BEDTIME 06/20/20 08/13/20 metformin 2 tab PO BEDTIME 06/20/20 08/13/20 pantoprazole 1 tab PO DAILY 06/20/20 08/13/20 risperidone 0.25 mg PO BEDTIME 06/20/20 08/13/20 simvastatin 1 tab PO BEDTIME 06/20/20 08/13/20 trazodone 1 - 2 tab PO BEDTIME PRN 06/20/20 08/13/20 acetaminophen 325 mg tablet 325 mg PO QID PRN 07/24/20 08/13/20 bisacodyl 10 mg rectal suppository 10 mg [place] DAILY PRN 07/24/20 08/13/20 Previous Rx's Medication Instructions Recorded apixaban [Eliquis] 5 mg PO BID #60 tab 07/09/20 ceftriaxone 1 g IV Q24H 12 Days ea 07/09/20 digoxin [Digox] 125 mcg PO DAILY #30 tab 07/09/20 metoprolol tartrate 100 mg PO BID #60 tab 07/09/20 Allergies Allergy/AdvReac Type Severity Reaction Status Date / Time chlorthalidone Allergy Unknown ACUTE Verified 07/24/20 15:53 [CHLORTHALIDONE] RENAL FAILURE Iodine and Iodide Containing Allergy Unknown UNKNOWN Verified 07/24/20 15:53 Produc [IODINE AND IODIDE CONTAINING PRODUC] levofloxacin [From LEVAQUIN] AdvReac Unknown NAUSEA & Verified 07/24/20 15:53 VOMITING Penicillins [PENICILLINS] AdvReac Unknown RASH Verified 07/24/20 15:53 Sulfa (Sulfonamide AdvReac Unknown RASH Verified 07/24/20 15:53 Antibiotics) [SULFA (SULFONAMIDE ANTIBIOTICS)] TAPE,PAPER Allergy Unknown UNKNOWN Uncoded 03/28/20 18:54 Review of Systems Review of Systems: Constitutional : No Weight loss, No Fever, No Chills, No Night Sweats, No Fatigue, No Malaise ENT/Mouth : No Hearing loss, No Ear Pain, No Nasal Congestion, No Sinus Pain, No Hoarseness, No sore throat, No Rhinorrhea, No Swallowing Difficulty Eyes: No Eye Pain, No Swelling, No Redness, No Foreign Body, No Discharge, No Vision Changes Cardiovascular : No Chest Pain, No SOB, No Dyspnea on Exertion, No Orthopnea, No Edema, No Palpitations Respiratory : No Cough, No Sputum, No Wheezing, No Smoke Exposure, No Dyspnea Gastrointestinal : No Nausea, No Vomiting, No Diarrhea, No Constipation, No abdominal Pain, No Hematochezia, No Melena Genitourinary : no irregular bleeding, No Dysuria, No Urinary Frequency, No Hematuria, No Urinary Incontinence, No Urgency, No Flank Pain, No Urinary Flow Changes, No Hesitancy Musculoskeletal : Complaining of lower back pain, specifically over the coccyx Skin : No Skin Lesions, No rash Neuro : No Weakness, No Numbness, No Paresthesias, No Loss of Consciousness, No Dizziness, No Headache Psych : No Anxiety/Panic, No Depression, No SI/HI/AH/VH, No Social Issues, Heme/Lymph: No Bruising, No Bleeding,No Lymphadenopathy Endocrine : No Polyuria, No Polydipsia, No Temperature Intolerance [facility] Past Medical History Medical History Atrial fibrillation Carcinoid tumor Diabetic foot ulcers 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 Hypertension Hypothyroidism Leukemoid reaction Macrocytic anemia Osteomyelitis of great toe of left foot PAF (paroxysmal atrial fibrillation) Syncope and collapse Type 2 diabetes mellitus Social History Social History Household Members: None Housing: Apartment Alcohol intake: unknown Smoking Status: Never smoker Second Hand Smoke Exposure: No Use of substances other than those prescribed or required for medical reasons: No Advance Directives: No service: No Current occupational status: retired Physical Exam Vital Signs: Vital Signs: Last Vital Signs Temp 98.0 F 08/14/20 00:35 Pulse 101 H 08/14/20 02:00 Resp 16 08/14/20 00:35 BP 136/71 08/14/20 02:00 Pulse Ox 95 08/14/20 00:35 Body Mass Index 27.0 Appearance: Alert. Oriented X3. No acute distress. Eyes: Pupils equal, round and reactive to light. ENT: Pharynx normal. Neck: Normal inspection. Neck supple. No lymph nodes noted. No crepitus CVS: Normal heart rate and rhythm. Pulses normal. Normal S1 and S2 Respiratory: No respiratory distress. Breath sounds normal. No Wheezing. No rales Abdomen: Soft and nontender. No rigidity. No distention. good BS x4 Back: Pain to palpation over the coccyx and lumbar region, skin is intact Skin: Skin warm and dry. Normal skin color. Normal skin turgor. Amputation site on metatarsals healing well, no signs of cellulitis Extremities: No lower extremity edema. No lower extremity edema. No Lacerations. No Rash Neuro: Oriented X 3. No motor deficit. No sensory deficit. Moving all extermities. No slurred speech. Course Course Course Narrative: When patient got to the emergency room, her heart rate ranged between 120 and 140, patient was symptomatic. Patient was given 2.5 mg IV of metoprolol, her heart rate now is 105, blood pressure 146/81. Patient remains asymptomatic. Patient's lumbar CT scan is pending. Patient will likely need physical therapy and case management in the morning. Sign-out given to Dr. Ernandez [facility] - Back Pain/Injury Lab Data Result diagrams: 08/14/20 00:59 08/14/20 00:59 Labs: Lab Results 08/14/20 08/14/20 08/14/20 Range/Units 00:59 00:59 00:59 WBC 10.4 (4.8-10.8) X10*3/uL RBC 3.64 L (4.20-5.50) X10*6/uL Hgb 10.0 L (12.0-16.0) g/dl Hct 31.3 L (37-47) % MCV 86.0 (80-98) fL MCH 27.5 (27.0-33.0) pg MCHC 31.9 (31.0-35.0) g/dl RDW 14.0 (11.0-16.0) % Plt Count 399 (160-400) X10*3/uL MPV 10.5 (9.4-12.3) fL Immature Gran % (Auto) 0.3 (0.0-0.4) % Neut % (Auto) 66.5 (45-73) % Lymph % (Auto) 23.1 (20-40) % [place] % (Auto) 7.5 (2-11) % Eos % (Auto) 1.4 (0-4) % Baso % (Auto) 1.2 (0-2) % Lymph # (Auto) 2.4 (1.2-4.9) X10*3/uL [place] # (Auto) 0.8 (0.1-1.2) X10*3/uL Eos # (Auto) 0.2 (0.0-0.4) X10*3/uL Baso # (Auto) 0.1 (0.0-0.2) X10*3/uL Abs Immat Gran (auto) 0.03 (0.00-0.03) X10*3/uL Absolute Neuts (auto) 6.9 (2.0-8.3) X10*3/uL Absolute Nucleated RBC 0.000 (0.0-0.012) X10*3/uL Nucleated RBC % (auto) 0.0 (0.0-0.2) /100WBC Hold Purple Top Hold Blue Top Sodium 138 (135-145) mmol/L Potassium 3.8 (3.3-5.1) mmol/L Chloride 100 (96-108) mmol/L Carbon Dioxide 27 (22-29) mmol/L Anion Gap 15 (12-20) BUN 13 (9-16) mg/dL Creatinine 0.84 (0.5-1.4) mg/dL Estim Creat Clear Calc 67.7 Estimated GFR > 60 Random Glucose 157 H (60-115) mg/dL Lactic Acid 1.8 (0.5-2.0) mmol/L Calcium 9.2 D (8.4-10.2) mg/dL Troponin I High Sens (<3.5-17.0) ng/L 08/14/20 08/14/20 08/14/20 Range/Units 00:59 01:06 01:06 WBC (4.8-10.8) X10*3/uL RBC (4.20-5.50) X10*6/uL Hgb (12.0-16.0) g/dl Hct (37-47) % MCV (80-98) fL MCH (27.0-33.0) pg MCHC (31.0-35.0) g/dl RDW (11.0-16.0) % Plt Count (160-400) X10*3/uL MPV (9.4-12.3) fL Immature Gran % (Auto) (0.0-0.4) % Neut % (Auto) (45-73) % Lymph % (Auto) (20-40) % [place] % (Auto) (2-11) % Eos % (Auto) (0-4) % Baso % (Auto) (0-2) % Lymph # (Auto) (1.2-4.9) X10*3/uL [place] # (Auto) (0.1-1.2) X10*3/uL Eos # (Auto) (0.0-0.4) X10*3/uL Baso # (Auto) (0.0-0.2) X10*3/uL Abs Immat Gran (auto) (0.00-0.03) X10*3/uL Absolute Neuts (auto) (2.0-8.3) X10*3/uL Absolute Nucleated RBC (0.0-0.012) X10*3/uL Nucleated RBC % (auto) (0.0-0.2) /100WBC Hold Purple Top SEE NOTE Hold Blue Top SEE NOTE Sodium (135-145) mmol/L Potassium (3.3-5.1) mmol/L Chloride (96-108) mmol/L Carbon Dioxide (22-29) mmol/L Anion Gap (12-20) BUN (9-16) mg/dL Creatinine (0.5-1.4) mg/dL Estim Creat Clear Calc Estimated GFR Random Glucose (60-115) mg/dL Lactic Acid (0.5-2.0) mmol/L Calcium (8.4-10.2) mg/dL Troponin I High Sens < 3.5 D (<3.5-17.0) ng/L ECG Data Attestation: I personally reviewed and interpreted this ECG as follows: (Heart rate 105, atrial fibrillation, no ST segment depression or elevation, QTC 504) Discharge Plan Discharge Clinical Impression: Atrial fibrillation with RVR, Lumbar back pain Prescriptions: No Action losartan 50 mg tablet 1 tab PO DAILY RF: 0 furosemide 40 mg tablet 1 tab PO DAILY RF: 0 trazodone 50 mg tablet 1 - 2 tab PO BEDTIME PRN (Reason: insomnia) RF: 0 simvastatin 10 mg tablet 1 tab PO BEDTIME RF: 0 levothyroxine 75 mcg tablet 1 tab PO DAILY RF: 0 amlodipine 10 mg tablet 1 tab PO DAILY RF: 0 metformin 1,000 mg tablet 2 tab PO BEDTIME RF: 0 duloxetine 60 mg capsule,delayed release(DR/EC) 1 cap PO QAM RF: 0 melatonin 5 mg tablet 2 tab PO BEDTIME RF: 0 pantoprazole 40 mg tablet,delayed release (DR/EC) 1 tab PO DAILY RF: 0 aspirin 81 mg Tablet 81 mg PO BEDTIME RF: 0 cholecalciferol (vitamin D3) 400 UNITS 800 units PO DAILY RF: 0 cyanocobalamin (vitamin B-12) 500 MCG 500 mcg PO DAILY RF: 0 risperidone 0.25 mg Tablet 0.25 mg PO BEDTIME RF: 0 Lantus Solostar U-100 Insulin 100 unit/mL (3 mL) Insulin Pen 40 unit SUBCUT BEDTIME RF: 0 diclofenac sodium 1 % Gel 2 g TOPICAL BID RF: 0 ceftriaxone 1 gram Recon Soln 1 g IV Q24H 12 Days RF: 0 Eliquis 5 mg Tablet 5 mg PO BID Qty: 60 RF: 2 metoprolol tartrate 100 mg Tablet 100 mg PO BID Qty: 60 RF: 2 digoxin [Digox] 125 mcg (0.125 mg) tablet 125 mcg PO DAILY Qty: 30 RF: 1 acetaminophen 325 mg tablet 325 mg PO QID PRNRF: 0 bisacodyl [Dulcolax (bisacodyl)] 10 mg suppository 10 mg [place] DAILY PRNRF: 0
[2020-08-14 01:10] LABS: Basophils Absolute Auto 0.1 X10*3/uL (0.0-0.2); Basophils Percent Auto 1.2 % (0-2); Eosinophils Absolute Auto 0.2 X10*3/uL (0.0-0.4); Eosinophils Percent Auto 1.4 % (0-4); Hematocrit 31.3 % (37-47); Imm Gran Abs Auto 0.03 X10*3/uL (0.00-0.03); Imm Gran Pct Auto 0.3 % (0.0-0.4); Lymphocytes Absolute Auto 2.4 X10*3/uL (1.2-4.9); Lymphocytes Percent Auto 23.1 % (20-40); MANUAL DIFF FLAG NO; Mean Corpuscular HGB Conc 31.9 g/dl (31.0-35.0); Mean Corpuscular Hemoglobin 27.5 pg (27.0-33.0); Mean Platelet Volume 10.5 fL (9.4-12.3); Monocytes Absolute Auto 0.8 X10*3/uL (0.1-1.2); Monocytes Percent Auto 7.5 % (2-11); Neutrophils Absolute Auto 6.9 X10*3/uL (2.0-8.3); Neutrophils Percent Auto 66.5 % (45-73); Platelet Count 399 X10*3/uL (160-400); Red Blood Count 3.64 X10*6/uL (4.20-5.50); White Blood Count 10.4 X10*3/uL (4.8-10.8)
[2020-08-14] MEDS: Metoprolol Tartrate 5 MG/5 ML VIAL 2.5 MG IVPUSH (01:17)
[2020-08-14 01:27] LABS: Lactic Acid 1.8 mmol/L (0.5-2.0)
[2020-08-14] MEDS: oxyCODONE HCl Immed Release 5 MG TABLET 10 MG PO (01:28)
[2020-08-14 01:35] LABS: Troponin-I High Sensitivity < 3.5 ng/L (<3.5-17.0)
[2020-08-14 01:40] LABS: Anion Gap 15 (12-20); Blood Urea Nitrogen 13 mg/dL (9-16); Calcium 9.2 mg/dL (8.4-10.2); Carbon Dioxide 27 mmol/L (22-29); Chloride 100 mmol/L (96-108); Creatinine Clr Calc Pharmacy 67.7; Estimated Glomerular Filt Rate > 60; Glucose Random 157 mg/dL (60-115); Potassium 3.8 mmol/L (3.3-5.1); Sodium 138 mmol/L (135-145)
--- NOTE | 2020-08-14 03:23 | P.HPHOSP_ITS ---
History of Present Illness Date of Service: 08/14/20 Chief Complaint: Back pain 65-year-old female with a past medical history of hypertension, hyperlipidemia, diabetes, AFib on Eliquis, CHF, diabetic foot ulcer/left foot osteomyelitis- recently finished antibiotic course presented to the hospital today with a chief complaint of back pain over the past 2 days. Patient reported that she has been having back pain some time especially last admission, has been lingering and there were over the past 2 days it is even in intensity especially at the coccyx and unable to sit. Denies any numbness tingling. Denies any fever chills cough. Denies any recent travel or sick contacts. Mentions that she had COVID-19 va ccination done. Denies any fever chills cough or urinary symptoms. Review of all other systems is negative except mentioned 1 ER course: Per ER physician patient's examination was nonfocal, CT scan showed a L4-L5 diskitis/osteomyelitis. Patient was given vancomycin and Zosyn. Admitted to the hospital for further management. The ER physician also mentioned that patient was noted to be in AFib with RVR on presentation with improvement in heart rate after IV metoprolol. Blood cultures have been sent. 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 Hypertension Hypothyroidism Leukemoid reaction Macrocytic anemia Osteomyelitis of great toe of left foot PAF (paroxysmal atrial fibrillation) Syncope and collapse Type 2 diabetes mellitus Social History Household Members: None Housing: Apartment Alcohol intake: unknown Smoking Status: Never smoker Second Hand Smoke Exposure: No Use of substances other than those prescribed or required for medical reasons: No Advance Directives: No service: No Current occupational status: retired Meds Allergies Allergy/AdvReac Type Severity Reaction Status Date / Time chlorthalidone Allergy Unknown ACUTE Verified 07/24/20 15:53 [CHLORTHALIDONE] RENAL FAILURE Iodine and Iodide Containing Allergy Unknown UNKNOWN Verified 07/24/20 15:53 Produc [IODINE AND IODIDE CONTAINING PRODUC] levofloxacin [From LEVAQUIN] AdvReac Unknown NAUSEA & Verified 07/24/20 15:53 VOMITING Penicillins [PENICILLINS] AdvReac Unknown RASH Verified 07/24/20 15:53 Sulfa (Sulfonamide AdvReac Unknown RASH Verified 07/24/20 15:53 Antibiotics) [SULFA (SULFONAMIDE ANTIBIOTICS)] TAPE,PAPER Allergy Unknown UNKNOWN Uncoded 03/28/20 18:54 Home Medications Medication Instructions Recorded Confirmed Type Lantus Solostar U-100 Insulin 40 unit SUBCUT BEDTIME 06/20/20 08/13/20 History amlodipine 1 tab PO DAILY 06/20/20 08/13/20 History aspirin 81 mg PO BEDTIME 06/20/20 08/13/20 History cholecalciferol (vitamin D3) 800 units PO DAILY 06/20/20 08/13/20 History cyanocobalamin (vitamin B-12) 500 mcg PO DAILY 06/20/20 08/13/20 History diclofenac sodium 2 g TOPICAL BID 06/20/20 08/13/20 History duloxetine 1 cap PO QAM 06/20/20 08/13/20 History furosemide 1 tab PO DAILY 06/20/20 08/13/20 History levothyroxine 1 tab PO DAILY 06/20/20 08/13/20 History losartan 1 tab PO DAILY 06/20/20 08/13/20 History melatonin 2 tab PO BEDTIME 06/20/20 08/13/20 History metformin 2 tab PO BEDTIME 06/20/20 08/13/20 History pantoprazole 1 tab PO DAILY 06/20/20 08/13/20 History risperidone 0.25 mg PO BEDTIME 06/20/20 08/13/20 History simvastatin 1 tab PO BEDTIME 06/20/20 08/13/20 History trazodone 1 - 2 tab PO BEDTIME PRN 06/20/20 08/13/20 History acetaminophen 325 mg tablet 325 mg PO QID PRN 07/24/20 08/13/20 History bisacodyl 10 mg rectal suppository 10 mg [place] DAILY PRN 07/24/20 08/13/20 History Physical Exam Vital Signs and Narrative: Vital Signs: Last Vital Signs Temp 98.0 F 08/14/20 00:35 Pulse 101 H 08/14/20 02:00 Resp 16 08/14/20 00:35 BP 136/71 08/14/20 02:00 Pulse Ox 95 08/14/20 00:35 Body Mass Index 27.0 Gen: Appears be in no acute distress HEENT: NCAT, Moist mucosa. Pulmonary: Vesicular breath sounds, fair air entry CVS: Normal S1-S2 Abdomen: BS+, Soft, Nontender Extremities: Warm well perfused; tender in the low back Neuro: Alert and awake. grossly nonfocal Results Labs CBC and Chem 7: 08/14/20 00:59 08/14/20 00:59 Labs: Laboratory Results - last 24 hr 08/14/20 08/14/20 08/14/20 00:59 00:59 00:59 MCV 86.0 MCH 27.5 MCHC 31.9 RDW 14.0 Plt Count 399 MPV 10.5 Immature Gran % (Auto) 0.3 Neut % (Auto) 66.5 Lymph % (Auto) 23.1 [place] % (Auto) 7.5 Eos % (Auto) 1.4 Baso % (Auto) 1.2 Lymph # (Auto) 2.4 [place] # (Auto) 0.8 Eos # (Auto) 0.2 Baso # (Auto) 0.1 Abs Immat Gran (auto) 0.03 Absolute Neuts (auto) 6.9 Absolute Nucleated RBC 0.000 Nucleated RBC % (auto) 0.0 Hold Purple Top Hold Blue Top Anion Gap 15 Estim Creat Clear Calc 67.7 Estimated GFR > 60 Random Glucose 157 H Lactic Acid 1.8 Calcium 9.2 D Troponin I High Sens 08/14/20 08/14/20 08/14/20 00:59 01:06 01:06 MCV MCH MCHC RDW Plt Count MPV Immature Gran % (Auto) Neut % (Auto) Lymph % (Auto) [place] % (Auto) Eos % (Auto) Baso % (Auto) Lymph # (Auto) [place] # (Auto) Eos # (Auto) Baso # (Auto) Abs Immat Gran (auto) Absolute Neuts (auto) Absolute Nucleated RBC Nucleated RBC % (auto) Hold Purple Top SEE NOTE Hold Blue Top SEE NOTE Anion Gap Estim Creat Clear Calc Estimated GFR Random Glucose Lactic Acid Calcium Troponin I High Sens < 3.5 D Imaging Radiologist's Impressions: Impressions Lumbar Spine CT 08/14/20 00:45 IMPRESSION: Increase in the disc space between L4 and L5 secondary to destructive erosive changes within the inferior endplate of L4 and the superior endplate of L5. There is adjacent ill-defined soft tissue prominence and new bone formation noted adjacent to the vertebra. The appearance is most suspicious for infection, specifically osteomyelitis/discitis. No drainable fluid collections are present. No abdominal or pelvic free fluid. Assessment and Plan (1) Discitis of lumbosacral region: Status: Acute 65-year-old female with a past medical history of hypertension, hyperlipidemia, diabetes, AFib on Eliquis, CHF, hypothyroidism, GERD, recent admission to the hospital with diabetic foot ulcer/osteomyelitis of the left foot-finished antibiotic course presented to [facility] with a chief complaint of back pain noted to have L4-L5 diskitis as per the CT scan. Admitted to the hospital for further management. The a L4-L5 diskitis/osteomyelitis: Nonfocal examination. Will continue vancomycin and Zosyn. Blood cultures have been sent. Will await further recommendations from ID including antibiotic choice as well as MRI of the spine. Fall precautions Pain control Diabetes: Give the patient on insulin sliding scale. Hold metformin Hypertension/hyperlipidemia continue home medications AFib with rapid ventricular response: Improved with 1 dose of metoprolol IV x1 in the ER. Continue home beta-blockers. Continue home Eliquis. Code status: Full code
[2020-08-14] MEDS: Piperacillin Sodium/Tazobactam 3.375 GM in 0.9 % Sodium Chloride 50 ML IV ×4 (03:34→20:25)
[2020-08-14 05:02] LABS: COVID-19 Test Negative (Negative)
[2020-08-14 07:08] LABS: MANUAL DIFF FLAG NO
[2020-08-14 07:20] LABS: Basophils Absolute Auto 0.1 X10*3/uL (0.0-0.2); Basophils Percent Auto 0.9 % (0-2); Eosinophils Absolute Auto 0.2 X10*3/uL (0.0-0.4); Hematocrit 29.4 % (37-47); Hemoglobin 9.5 g/dl (12.0-16.0); Imm Gran Abs Auto 0.01 X10*3/uL (0.00-0.03); Imm Gran Pct Auto 0.1 % (0.0-0.4); Lymphocytes Absolute Auto 2.8 X10*3/uL (1.2-4.9); Lymphocytes Percent Auto 28.2 % (20-40); Mean Corpuscular HGB Conc 32.3 g/dl (31.0-35.0); Mean Corpuscular Hemoglobin 27.3 pg (27.0-33.0); Mean Corpuscular Volume 84.5 fL (80-98); Mean Platelet Volume 10.4 fL (9.4-12.3); Monocytes Absolute Auto 0.8 X10*3/uL (0.1-1.2); Monocytes Percent Auto 8.3 % (2-11); Neutrophils Absolute Auto 5.9 X10*3/uL (2.0-8.3); Neutrophils Percent Auto 60.5 % (45-73); Platelet Count 391 X10*3/uL (160-400); Red Blood Count 3.48 X10*6/uL (4.20-5.50); Red Cell Distribution Width 14.2 % (11.0-16.0); White Blood Count 9.8 X10*3/uL (4.8-10.8)
[2020-08-14 07:36] LABS: Anion Gap 14 (12-20); Blood Urea Nitrogen 12 mg/dL (9-16); Carbon Dioxide 27 mmol/L (22-29); Chloride 102 mmol/L (96-108); Creatinine Clr Calc Pharmacy 71.9; Estimated Glomerular Filt Rate > 60; Glucose Random 102 mg/dL (60-115); Potassium 3.8 mmol/L (3.3-5.1); Sodium 139 mmol/L (135-145)
[2020-08-14 07:59] LABS: Glucose, Whole Blood 141 mg/dL (60-115)
[2020-08-14] MEDS: vancomycin HCL 750 MG in 0.9 % Sodium Chloride 250 ML 265 MG IV ×2 (08:08→21:45)
[2020-08-14] MEDS: Levothyroxine Sodium 75 MCG TABLET PO (08:09)
[2020-08-14] MEDS: Furosemide 40 MG TABLET PO (08:09)
[2020-08-14] MEDS: Apixaban 5 MG TABLET PO ×2 (08:09→21:55)
[2020-08-14] MEDS: amLODIPine Besylate 10 MG TABLET PO (08:09)
[2020-08-14] MEDS: Losartan Potassium 50 MG TABLET PO (08:09)
[2020-08-14] MEDS: 0.9 % Sodium Chloride Flush 3 ML SYRINGE IVFLUSH ×2 (08:12→15:08)
[2020-08-14] MEDS: HYDROmorphone HCl 0.5 MG/0.5 ML SYRINGE IVPUSH ×3 (10:30→22:07)
--- NOTE | 2020-08-14 11:27 | PC.NURSE ---
Pt throwing frequent PVCs in an afib, with runs of [address] Monterroso made aware, and will review.
[2020-08-14 12:10] LABS: Glucose, Whole Blood 106 mg/dL (60-115)
--- NOTE | 2020-08-14 12:26 | MHC.CM.PN ---
IMM 08/14/20, EMR REVIEWED, PT ADMITTED WITH OSTEOMYELITIS IN L4/L5, PT IS ALERT AND ORIENTED AND REPORTS SHE LIVES ALONE AND HAS [facility] TO MONITOR WOUND AND HOME OT/PT, PT DENIES ANY OTHER HOME SERVICES, PT REPORTS SHE WOULD LIKE TO RETURN TO [facility] IF SHE NEEDS SIGNAL TESTER ABX, PT REPORTS SHE IS UNABLE TO AND PREFERS NOT TO DO ABX AT HOME, PT AWARE OF POSSIBLE COPAY FOR SNF, PT REPORTS SHE RECEIVED HER FIRST AND SECOND(08/06/20) COVID [address] WHILE AT [facility]. PT REPORTS HAVING A MEDICAL DIRECTOR OCCUPATIONAL [employer] AT [address] [place] [address] WITH UPCOMING APPT, CM VERIFIED. DISCHARGE PLAN: SNF FOR ASSISTED ABX VS HOME W/RESUMPTION OF [facility] LONGTERM/OT/PT. CM WILL CONTINUE TO MONITOR FOR CHANGE IN D/C NEEDS. MEDICAL DIRECTOR OCCUPATIONAL HEALTH: CECILE OVIEDO- APPT 08/21/20 AT 2:30PM IN PERSON. WOUND CARE: DR WASHINGTON, APPT IN 3 WKS
--- NOTE | 2020-08-14 13:53 | PC.NURSE ---
pt cleaned of incontinent urine, linens changed.
[2020-08-14] MEDS: Metoprolol Tartrate 50 MG TABLET PO ×2 (14:11→21:55)
--- NOTE | 2020-08-14 15:19 | PC.NURSE ---
Pt medicated for pain per emar. She continues to await bed assignment. Will continue to manage/monitor.
--- NOTE | 2020-08-14 16:30 | P.CNID_ITS ---
History of Present Illness Data of Consult Service Date: 08/14/20 Requesting physician: Laura Monterroso Primary Care Provider: Jessie Sorensen MD [facility] Reason for consult: back pain She presents to hospital for 8/10 back pain for two days CT scan shows possible L4-L5 destruction consistent with osteomyelitis She has no fever or chills She had hospitalization last month for strep intermedius bacteremia with right foot inflammation and no back pain She just finished 6 weeks IV antibiotics and I saw her in office on 08/06 and was doing well No endocarditis was seen Review of Systems Review of Systems: Yes all other systems are reviewed and are negative [facility] Past Medical History Medical History Atrial fibrillation Carcinoid tumor Diabetic foot ulcers 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 Hypertension Hypothyroidism Leukemoid reaction Macrocytic anemia Osteomyelitis of great toe of left foot PAF (paroxysmal atrial fibrillation) Syncope and collapse Type 2 diabetes mellitus Family History Family history: reviewed and not pertinent Social History Social History Household Members: None Housing: Apartment Alcohol intake: unknown Smoking Status: Never smoker Second Hand Smoke Exposure: No Use of substances other than those prescribed or required for medical reasons: No Advance Directives: No service: No Current occupational status: retired Meds Allergies Allergy/AdvReac Type Severity Reaction Status Date / Time chlorthalidone Allergy Unknown ACUTE Verified 07/24/20 15:53 [CHLORTHALIDONE] RENAL FAILURE Iodine and Iodide Containing Allergy Unknown UNKNOWN Verified 07/24/20 15:53 Produc [IODINE AND IODIDE CONTAINING PRODUC] levofloxacin [From LEVAQUIN] AdvReac Unknown NAUSEA & Verified 07/24/20 15:53 VOMITING Penicillins [PENICILLINS] AdvReac Unknown RASH Verified 07/24/20 15:53 Sulfa (Sulfonamide AdvReac Unknown RASH Verified 07/24/20 15:53 Antibiotics) [SULFA (SULFONAMIDE ANTIBIOTICS)] TAPE,PAPER Allergy Unknown UNKNOWN Uncoded 03/28/20 18:54 Home Medications Medication Instructions Recorded Confirmed Type Lantus Solostar U-100 Insulin 40 unit SUBCUT BEDTIME 06/20/20 08/14/20 History amlodipine 10 mg PO DAILY 06/20/20 08/14/20 History duloxetine 60 mg PO DAILY 06/20/20 08/14/20 History furosemide 40 mg PO DAILY 06/20/20 08/14/20 History levothyroxine 75 mcg PO DAILY@0630 06/20/20 08/14/20 History losartan 50 mg PO DAILY 06/20/20 08/14/20 History metformin 2,000 mg PO DAILY@1700 06/20/20 08/14/20 History risperidone 0.25 mg PO BEDTIME 06/20/20 08/14/20 History simvastatin 10 mg PO BEDTIME 06/20/20 08/14/20 History acetaminophen 325 mg tablet 650 mg PO Q4H PRN 07/24/20 08/14/20 History albuterol sulfate [ProAir HFA] 2 puff INHALATION Q4-6H PRN 08/14/20 08/14/20 History aspirin 81 mg PO DAILY 08/14/20 08/14/20 History cholecalciferol (vitamin D3) 25 mcg PO DAILY 08/14/20 08/14/20 History cyanocobalamin (vitamin B-12) 500 mcg PO DAILY 08/14/20 08/14/20 History lidocaine 1 patch TOPICAL DAILY 08/14/20 08/14/20 History metoprolol tartrate 100 mg PO BID 08/14/20 08/14/20 History pantoprazole 20 mg PO DAILY 08/14/20 08/14/20 History Physical Exam Vital Signs: Vital Signs: Last Vital Signs Temp 97.8 F 08/14/20 08:02 Pulse 92 08/14/20 14:11 Resp 15 08/14/20 14:10 BP 117/85 08/14/20 14:11 Pulse Ox 98 08/14/20 14:10 Body Mass Index 27.0 Const: General: cooperative Orientation/consciousness: patient oriented x3 HENMT: Head: Yes normal to inspection Mouth: Normal oral and palatal mucosa present Eyes: General: appearance normal, both eyes and all related structures Resp: Effort & Inspection: normal respiratory effort Cardio: Rate: regular rate Rhythm: regular rhythm GI: Palpation (GI): Soft to palpation and nontender Back/Spine/Pelvis: Other: pain lower back L4-L5 Skin: General skin exam: no rashes or lesions noted Neuro: General: patient oriented x3 and CN's II-XI intact bilaterally Assessment and Plan (1) Discitis of lumbosacral region: Problem details: The lumbosacral pain is new This could be sequelae of bacteremia with metastatic bacterial disease in spine although unusual since received full treatment for strep intermedius osteomyelitis which would have covered lumbar spine as well There is possibility also of new unrecognized bacterial infection obtained via PICC line infection ?MRSA or gram negative Patient also could have pain in site of sterile crumbling spine area as aseptic sequelae of treated osteomyelitis She could also have compression fracture or malignancy ?Sheth disease in spine ( no h/o TB) Status: Acute Would await cultures blood Would check MRI LSspine if able Would ask Neurosurgery to review film see if any biopsies or drainage necessary If bacteremia or phlegmon found check SANDRA (2) Acute osteomyelitis of metatarsal bone of left foot: Status: Acute (3) Gram-positive bacteremia: Problem details: strep intermedius improving foot wound Status: Acute Results Labs CBC & Chem 7: 08/14/20 06:58 08/14/20 06:58 Labs: Short CBC 08/14/20 08/14/20 Range/Units 00:59 06:58 WBC 10.4 9.8 (4.8-10.8) X10*3/uL Hgb 10.0 L 9.5 L (12.0-16.0) g/dl Hct 31.3 L 29.4 L (37-47) % Plt Count 399 391 (160-400) X10*3/uL BMP 08/14/20 08/14/20 00:59 06:58 Sodium 138 139 Potassium 3.8 3.8 Chloride 100 102 Carbon Dioxide 27 27 BUN 13 12 Creatinine 0.84 0.79 Calcium 9.2 D 9.0
[2020-08-14 16:39] LABS: Glucose, Whole Blood 98 mg/dL (60-115)
[2020-08-14] MEDS: LORazepam 2 MG/ML VIAL 0.5 MG IVPUSH (17:36)
--- NOTE | 2020-08-14 18:26 | PC.NURSE ---
Pt currently in MRI. She was medicated for anxiety, per emar prior to transport. Per Dr. Monterroso pt ok to transport unmonitored, and off telemetry.
[2020-08-14 20:50] LABS: Glucose, Whole Blood 136 mg/dL (60-115)
[2020-08-14] MEDS: Insulin Glargine,Hum.rec.anlog 100 UNIT/ML 10 ML VIAL 30 UNIT SUBCUT (21:54)
[2020-08-14] MEDS: risperiDONE 0.25 MG TABLET PO (22:07)
--- NOTE | 2020-08-14 22:24 | PC.NURSE ---
patient refuses telesiter
[2020-08-15] VITALS (9 sets, daily range): BP systolic 113–146; BP diastolic 69–87; PULSE 75–156; RESP 16–20; TEMP 35.7–36.5; O2SAT 93–100
[2020-08-15] MEDS: Piperacillin Sodium/Tazobactam 3.375 GM in 0.9 % Sodium Chloride 50 ML IV ×4 (02:03→21:29)
[2020-08-15] MEDS: 0.9 % Sodium Chloride Flush 3 ML SYRINGE IVFLUSH ×3 (02:03→16:20)
[2020-08-15] MEDS: HYDROmorphone HCl 0.5 MG/0.5 ML SYRINGE IVPUSH ×4 (02:19→23:59)
[2020-08-15] MEDS: Levothyroxine Sodium 75 MCG TABLET PO (05:31)
[2020-08-15] MEDS: Metoprolol Tartrate 50 MG TABLET PO ×3 (07:58→21:31)
[2020-08-15] MEDS: Furosemide 40 MG TABLET PO (07:58)
[2020-08-15] MEDS: Losartan Potassium 50 MG TABLET PO (07:58)
[2020-08-15] MEDS: Apixaban 5 MG TABLET PO ×2 (07:58→21:31)
[2020-08-15] MEDS: vancomycin HCL 750 MG in 0.9 % Sodium Chloride 250 ML 265 MG IV ×2 (07:59→21:30)
[2020-08-15 08:00] LABS: Glucose, Whole Blood 114 mg/dL (60-115)
[2020-08-15 11:38] LABS: Glucose, Whole Blood 229 mg/dL (60-115)
[2020-08-15] MEDS: Insulin Lispro 100 UNIT/ML 3 ML VIAL SUBCUT (12:19)
--- NOTE | 2020-08-15 14:59 | P.PNIM_ITS ---
Subjective Subjective Date of Service: 08/16/20 Interval History: Patient feeling better today complaining of itching right heel, no fever no chills back pain is better controlled. General no headache, no dizziness no fever chills. CVS no chest pain, no palpitation. No Shortness of breath. Gastrointestinal no nausea, no vomiting, no abdominal pain Physical Exam Vital Signs: Vital Signs: Last Vital Signs Temp 97.5 F 08/15/20 11:23 Pulse 80 08/15/20 11:23 Resp 18 08/15/20 11:23 BP 121/69 08/15/20 11:23 Pulse Ox 100 08/15/20 11:23 Body Mass Index 27.0 General patient resting comfortably in no acute distress. Neck is supple no JVD. CVS regular rate rhythm, Respiratory lungs clear to auscultation, no respiratory distress Gastrointestinal abdomen soft, nontender, bowel sounds audible Extremities right heel dressing in place with no surrounding redness or swelling, left big toe missing wound well healed with a small area of abrasion no drainage. Neuro nonfocal Skin no rash Objective Data Current Medications Generic Name Dose Route Start Last Admin Trade Name Freq PRN Reason Stop Dose Admin Acetaminophen 650 mg 08/14/20 03:03 Acetaminophen Supp 650 Mg Supp.Rect NH Q6H PRN Pain, Mild (Pain Scale 1-3) Apixaban 5 mg 08/14/20 09:00 08/15/20 07:58 Apixaban 5 Mg Tablet PO 5 mg BID [facility] Administration Furosemide 40 mg 08/14/20 08:00 08/15/20 07:58 Furosemide 40 Mg Tablet PO 40 mg DAILY@0800 [facility] Administration Protocol Hydromorphone HCl 0.5 mg 08/14/20 03:05 08/15/20 08:09 Hydromorphone Hcl 0.5 Mg/0.5 Ml Syringe IVPUSH 0.5 mg Q4H PRN Administration Pain, Severe (Pain Scale 7-10) Piperacillin Sod/Tazobactam 50 mls @ 100 mls/hr 08/14/20 09:00 08/15/20 10:11 Sod 3.375 gm/ Sodium Chloride IV Infused Q6H [facility] Infusion Vancomycin HCl 750 mg/ Sodium 265 mls @ 265 mls/hr 08/14/20 08:00 08/15/20 08:59 Chloride IV Infused Q12H [facility] Infusion Insulin Glargine 30 unit 08/14/20 21:00 08/14/20 21:54 Insulin Glargine,Hum.Rec.Anlog 100 Unit/Ml 10 Ml Vial SUBCUT 30 unit BEDTIME [facility] Administration Insulin Human Lispro 0 unit 08/14/20 07:30 08/15/20 12:19 Insulin Lispro 100 Unit/Ml 3 Ml Vial SUBCUT 4 unit QIDACHS [facility] Administration Protocol Levothyroxine Sodium 75 mcg 08/14/20 06:30 08/15/20 05:31 Levothyroxine Sodium 75 Mcg Tablet PO 75 mcg DAILY@0630 [facility] Administration Losartan Potassium 50 mg 08/14/20 09:00 08/15/20 07:58 Losartan Potassium 50 Mg Tablet PO 50 mg DAILY [facility] Administration Protocol Metoprolol Tartrate 50 mg 08/14/20 12:45 08/15/20 07:58 Metoprolol Tartrate 50 Mg Tablet PO 50 mg BID [facility] Administration Protocol Risperidone 0.25 mg 08/14/20 21:00 08/14/20 22:07 Risperidone 0.25 Mg Tablet PO 0.25 mg BEDTIME [facility] Administration Sodium Chloride 3 ml 08/14/20 08:00 08/15/20 07:58 0.9 % Sodium Chloride Flush 3 Ml Syringe IVFLUSH 3 ml QSHIFT [facility] Administration Labs CBC & Chem 7: 08/14/20 06:58 08/15/20 21:06 Microbiology Microbiology Results: Microbiology 08/14/20 01:12 Blood - Venous Blood Culture - Preliminary No growth after 24 hours. 08/14/20 01:12 Blood - Venous Blood Culture - Preliminary No growth after 24 hours. Assessment and Plan (1) Discitis of lumbosacral region: Status: Acute Assessment and Plan: 65-year-old female with a past medical history of hypertension, hyperlipidemia, diabetes, AFib on Eliquis, CHF, hypothyroidism, GERD, recent admission to the hospital with diabetic foot ulcer/osteomyelitis of the left foot-finished antibiotic course presented to ER with a chief complaint of back pain noted to have L4-L5 diskitis as per the CT scan. Admitted to the hospital for further management. L4-L5 diskitis/osteomyelitis: No fevers normal WBC count, blood cultures x2 negative continue vancomycin and Zosyn, day 2 MRI of the spine showed moderate edema surrounding L4-L5 with small epidural collection extending from L4-L5 disc space there is also phlegmonous engorgement of the epidural space from the level of L2-L5 there is a small collection extend ing into the prevertebral space at the level of L4-L5 with moderate enhancing edema along the medial margins of the sauce musculature no discrete psoas abscess noted, case discussed with Dr. Shane no collection noted for drainage, will discuss MRI findings with ID, hold off on SANDRA since blood cultures negative. Good pain control with IV Dilaudid Patient with no neurological deficit no leg weakness, no bowel bladder incontinence. Diabetes: Blood sugar fluctuating continue insulin sliding scale. Hold metformin Hypertension blood pressure is stable continue home medications AFib with rapid ventricular response: Remains in AFib heart rate improved continue beta-blockers follow on tele monitor. Continue Eliquis Code status: Full code
[2020-08-15 16:09] LABS: Glucose, Whole Blood 108 mg/dL (60-115)
--- NOTE | 2020-08-15 20:02 | PM.EVENT ---
Event Note Date of Service: 08/15/20 Event Note: AFib with RVR: Patient has been having intermittent AFib with RVR with heart rate between 130s to 150s. Added metoprolol 5 mg IV q.6 p.r.n. for heart rate greater than 120. Will check potassium and magnesium levels. Patient also had N a he SVT episodes. Will obtain echocardiogram. Cardiology consult for further recommendations.
[2020-08-15] MEDS: Metoprolol Tartrate 5 MG in 0.9 % Sodium Chloride 50 ML 220 MG IV (20:19)
[2020-08-15 20:59] LABS: Glucose, Whole Blood 189 mg/dL (60-115)
[2020-08-15] MEDS: risperiDONE 0.25 MG TABLET PO (21:31)
[2020-08-15] MEDS: Insulin Glargine,Hum.rec.anlog 100 UNIT/ML 10 ML VIAL 30 UNIT SUBCUT (21:31)
[2020-08-15 21:58] LABS: Anion Gap 17 (12-20); Blood Urea Nitrogen 18 mg/dL (9-16); Carbon Dioxide 23 mmol/L (22-29); Chloride 100 mmol/L (96-108); Estimated Glomerular Filt Rate 47; Glucose Random 189 mg/dL (60-115); Magnesium 1.4 mg/dL (1.6-2.6); Potassium 3.6 mmol/L (3.3-5.1); Sodium 136 mmol/L (135-145)
[2020-08-15] MEDS: Magnesium Sulfate/H2O 2 GM/50 ML PIGGYBACK IV (22:36)
[2020-08-15] MEDS: Potassium Chloride Packet 20 MEQ PACKET 40 MEQ PO (22:37)
[2020-08-16] VITALS (17 sets, daily range): BP systolic 116–152; BP diastolic 58–92; PULSE 74–124; RESP 14–20; TEMP 36.4–36.8; O2SAT 94–100
[2020-08-16] MEDS: 0.9 % Sodium Chloride Flush 3 ML SYRINGE IVFLUSH ×4 (00:32→20:00)
--- NOTE | 2020-08-16 02:12 | MHC.PIE ---
P: Afib with RVR on tele. HR fluctuating 120-160's. Frequent runs of Vtach nonsustaining, and frequent PVCs noted. I: Assessment, vitals. Dr. Monterroso notified, additional dose of Lopressor 50 mg PO ordered and given @18:46 with no effect on the HR. Night hospitalist updated. STAT Lopressor 5 mg IV PRN and given @ 21:32, no change in HR. STAT labs ordered. Mg low at 1.4. 2G of IV Mg/klor-com 40 meq PO given @ 0000. E: ~end of shift report; Pt a/o x3, denies chest pain, palpitations, SOB, or dizziness. Medicated with IV Dilaudid PRN for back pain. Pt HR improved after MG, Afib 99-100's, ectopy improved, BP stable. Report given to next nurse. Cardiology consult and echo in the morning.
[2020-08-16] MEDS: Piperacillin Sodium/Tazobactam 3.375 GM in 0.9 % Sodium Chloride 50 ML IV ×4 (03:08→22:26)
[2020-08-16] MEDS: HYDROmorphone HCl 0.5 MG/0.5 ML SYRINGE IVPUSH ×4 (04:30→22:36)
[2020-08-16] MEDS: Levothyroxine Sodium 75 MCG TABLET PO (05:18)
--- NOTE | 2020-08-16 06:30 | CA_ITS ---
Transthoracic Echocardiogram Patient (Last, First, Middle): Zara Hoffman, Gender: Female Date of : 1955 Age: 65 Procedure Date: 08/16/2020 Procedure Type: Transthoracic Echocardiogram Location: S3W Height: 167.64 cm Weight: 75.75 kg BSA: 1.85 m2 Heart Rate: bpm BP: 137 / 73 mmHg Supervisor Advice: TAZ Referring MD: Vipul Jean MD Symptoms: afib rvr/nsvt Study Quality: Good ECG Rhythm: Atrial Fibrillation Conclusions: - The left ventricular systolic function is mildly decreased. The visually estimated ejection fraction is between 45-50%. - There is mild to moderately decreased right ventricular systolic function. - There is mild mitral valve regurgitation. Findings Left Ventricle Normal left ventricular cavity size. There is normal left ventricular wall thickness. The left ventricular systolic function is mildly decreased. The visually estimated ejection fraction is between 45-50%. There is mild global hypokinesis. Diastolic function is normal for age. Right Ventricle Normal right ventricular cavity size. There is mild to moderately decreased right ventricular systolic function. Atria Both atria are normal in size. Aortic Valve There is a normal trileaflet aortic valve. There is no aortic valve stenosis. There is no aortic valve regurgitation. Mitral Valve The mitral valve appears normal. There is mild mitral valve regurgitation. There is no mitral valve stenosis. Pulmonic Valve The pulmonic valve was not well visualized. Tricuspid Valve Normal tricuspid valve structure. There is trace tricuspid valve regurgitation. The pulmonary artery systolic pressure is normal. Great Vessels The aortic annulus, sinuses of valsalva, and asc aorta are normal in size. Venous The inferior vena cava is normal in size and collapses greater than 50% with inspiration. Pericardium/Pleural There is no evidence of pericardial effusion. Prior Study Comparison Changes noted compared to prior study dated: 06/20/2020. Slight decrease in LVEF. Measurements 2D Linear Measurements IVSd: 0.83 0.6-0.9/0.6-1.0 cm LVIDd: 4.54 3.9-5.3/4.2-5.9 cm LVIDd Index: 2.45 2.4-3.2/2.2-3.1 cm/m2 LVIDs: 3.17 2.0-3.6 cm LVPWd: 0.84 0.7-1.1 cm Ao Root: 3.30 2.1-3.5 cm LA Diam: 3.70 2.7-3.8/3.0-4.0 cm LAIDs Index: 2.00 1.5-2.3 cm/m2 LV Mass: 151.98 67-162/88-224 g LV Mass Index: 82.15 43-95/49-115 g/m2 LVOT Diam: 2.00 3.0+(-)1.3 cm Aortic Valve AoV Pk Darnell: 1.08 AoV Mn Darnell: 0.72 AoV VTI: 0.17 AoV Pk Grad: 5.00 Aov Mn Grad: 2.00 SATISH Cont.VTI: 2.53 LVOT LVOT Pk Darnell: 0.77 LVOT Mn Darnell: 0.53 LVOT VTI: 0.14 LVOT Pk Grad: 2.00 LVOT Mn Grad: 1.00 LVOT Diam: 2.00 LVOT Area: 3.14 Tricuspid Valve TR Pk Darnell: 1.82 TR Pk Grad: 13.00 RA Press: 3.00 RVSP: 16.00 Great Vessels Aorta Ao Root-2D: 3.30 2.0-3.7 cm Ao Asc: 3.00 2.1-3.4 cm Ao Arch: 3.00 Updated in Other Vendor System with Status of Final Sam Sanabria MD electronically signed on 08/16/2020 4:19:26 PM with status of Final
[2020-08-16 08:18] LABS: Glucose, Whole Blood 162 mg/dL (60-115)
[2020-08-16] MEDS: Insulin Lispro 100 UNIT/ML 3 ML VIAL SUBCUT ×3 (09:30→20:58)
[2020-08-16] MEDS: Furosemide 40 MG TABLET PO (09:32)
[2020-08-16] MEDS: Apixaban 5 MG TABLET PO ×2 (09:32→20:44)
[2020-08-16] MEDS: Losartan Potassium 50 MG TABLET PO (09:32)
[2020-08-16] MEDS: Metoprolol Tartrate 50 MG TABLET 100 MG PO ×2 (09:36→20:44)
[2020-08-16] MEDS: vancomycin HCL 750 MG in 0.9 % Sodium Chloride 250 ML 265 MG IV ×2 (11:23→20:36)
[2020-08-16 12:17] LABS: Glucose, Whole Blood 219 mg/dL (60-115)
--- NOTE | 2020-08-16 15:34 | HO.PM.IMPN ---
Subjective Subjective Date of Service: 08/16/20 Interval History: Patient complaining of back pain this morning, events from last night noted patient was found to be in AFib with rapid ventricular response required IV Lopressor, patient denies chest pain, no palpitation no other acute issues overnight denies urinary or bowel incontinence no lower extremity numbness or weakness. ROS General no headache, no dizziness no fever chills. CVS no chest pain, no palpitation. No Shortness of breath. Gastrointestinal no nausea, no vomiting, no abdominal pain Physical Exam Vital Signs: Vital Signs: Last Vital Signs Temp 97.5 F 08/16/20 12:00 Pulse 81 08/16/20 12:00 Resp 15 08/16/20 12:00 BP 152/91 H 08/16/20 12:00 Pulse Ox 99 08/16/20 12:00 Body Mass Index 27.0 General patient resting comfortably in no acute distress. Neck is supple no JVD. CVS irregular Respiratory lungs clear to auscultation, no respiratory distress Gastrointestinal abdomen soft, nontender, bowel sounds audible Extremities right heel dressing in place with no surrounding redness or swelling, left big toe missing wound well healed with a small area of abrasion remains stable, no drainage. Neuro nonfocal Skin no rash Objective Data Current Medications Generic Name Dose Route Start Last Admin Trade Name Freq PRN Reason Stop Dose Admin Acetaminophen 650 mg 08/14/20 03:03 Acetaminophen Supp [address] Q6H PRN Pain, Mild (Pain Scale 1-3) Apixaban 5 mg 08/14/20 09:00 08/16/20 09:32 Apixaban 5 Mg Tablet PO 5 mg BID [facility] Administration Furosemide 40 mg 08/14/20 08:00 08/16/20 09:32 Furosemide 40 Mg Tablet PO 40 mg DAILY@0800 [facility] Administration Protocol Hydromorphone HCl 0.5 mg 08/14/20 03:05 08/16/20 09:31 Hydromorphone Hcl 0.5 Mg/0.5 Ml Syringe IVPUSH 0.5 mg Q4H PRN Administration Pain, Severe (Pain Scale 7-10) Piperacillin Sod/Tazobactam 50 mls @ 100 mls/hr 08/14/20 09:00 08/16/20 10:00 Sod 3.375 gm/ Sodium Chloride IV Infused Q6H [facility] Infusion Vancomycin HCl 750 mg/ Sodium 265 mls @ 265 mls/hr 08/14/20 08:00 08/16/20 12:25 Chloride IV Infused Q12H [facility] Infusion Metoprolol Tartrate 5 mg/ 55 mls @ 220 mls/hr 08/15/20 19:59 08/15/20 21:32 Sodium Chloride IV Infused Q6H PRN Infusion HR>125 Insulin Glargine 30 unit 08/14/20 21:00 08/15/20 21:31 Insulin Glargine,Hum.Rec.Anlog 100 Unit/Ml 10 Ml Vial SUBCUT 30 unit BEDTIME [facility] Administration Insulin Human Lispro 0 unit 08/14/20 07:30 08/16/20 12:31 Insulin Lispro 100 Unit/Ml 3 Ml Vial SUBCUT 4 unit QIDACHS [facility] Administration Protocol Levothyroxine Sodium 75 mcg 08/14/20 06:30 08/16/20 05:18 Levothyroxine Sodium 75 Mcg Tablet PO 75 mcg DAILY@0630 [facility] Administration Losartan Potassium 50 mg 08/14/20 09:00 08/16/20 09:32 Losartan Potassium 50 Mg Tablet PO 50 mg DAILY [facility] Administration Protocol Metoprolol Tartrate 100 mg 08/16/20 09:00 08/16/20 09:36 Metoprolol Tartrate 50 Mg Tablet PO 100 mg BID [facility] Administration Protocol Risperidone 0.25 mg 08/14/20 21:00 08/15/20 21:31 Risperidone 0.25 Mg Tablet PO 0.25 mg BEDTIME [facility] Administration Sodium Chloride 3 ml 08/14/20 08:00 08/16/20 09:30 0.9 % Sodium Chloride Flush 3 Ml Syringe IVFLUSH 3 ml QSHIFT [facility] Administration Labs CBC & Chem 7: 08/14/20 06:58 08/15/20 21:06 Microbiology Microbiology Results: Microbiology 08/14/20 01:12 Blood - Venous Blood Culture - Preliminary No growth after 48 hours. 08/14/20 01:12 Blood - Venous Blood Culture - Preliminary No growth after 48 hours. Assessment and Plan (1) Atrial fibrillation with RVR: Status: Acute (2) Discitis of lumbosacral region: Status: Acute (3) Osteomyelitis: Status: Acute Assessment and Plan: 65-year-old female with a past medical history of hypertension, hyperlipidemia, diabetes, AFib on Eliquis, CHF, hypothyroidism, GERD, recent admission to the hospital with diabetic foot ulcer/osteomyelitis of the left foot-finished antibiotic course presented to ER with a chief complaint of back pain noted to have L4-L5 diskitis as per the CT scan. Admitted to the hospital for further management. L4-L5 diskitis/osteomyelitis: No fevers normal WBC count, blood cultures x2 negative continue on IV vancomycin and Zosyn, day 3 MRI of the spine showed moderate edema surrounding L4-L5 with small epidural collection extending from L4-L5 disc space there is also phlegmonous engorgement of the epidural space from the level of L2-L5 there is a small collection extending into the prevertebral space at the level of L4-L5 with moderate enhancing edema along the medial margins of the psoas musculature, no discrete psoas abscess noted, case discussed with Dr. Shane, no collection noted for drainage, hold off on SANDRA since blood cultures negative. Good pain control with IV Dilaudid Patient with no neurological deficit no leg weakness, no bowel bladder incontinence. Case discussed with ID she recommend 6 weeks of IV antibiotics will place PICC line Diabetes: Blood sugar <200, continue insulin sliding scale. Will resume metformin Hypertension blood pressure is stable continue home medications Cozaar 50 mg, Lasix 40 mg, metoprolol 100 mg b.i.d., was also on Norvasc 10 mg daily, follow BP and adjust home medication. AFib with rapid ventricular response: had AFib with RVR last night will increase dose of metoprolol to 100 mg b.i.d. continue Eliquis, patient did have mild palpitations denies chest pain no shortness of breath, recent echo showed an EF 50-55% no evidence of regional wall motion abnormality diastolic function is normal. Code status: Full code
[2020-08-16 17:16] LABS: Glucose, Whole Blood 138 mg/dL (60-115)
[2020-08-16] MEDS: risperiDONE 0.25 MG TABLET PO (20:45)
[2020-08-16 20:47] LABS: Glucose, Whole Blood 215 mg/dL (60-115)
[2020-08-16] MEDS: Insulin Glargine,Hum.rec.anlog 100 UNIT/ML 10 ML VIAL 30 UNIT SUBCUT (20:58)
[2020-08-16] MEDS: Metoprolol Tartrate 5 MG in 0.9 % Sodium Chloride 50 ML 220 MG IV (21:47)
--- NOTE | 2020-08-16 23:55 | PC.NURSE ---
Pt HR sustaining in the 140s/150s. 3 beat, 4 beat, and 9 beat of vtach were noted. Pt asymptomatic, alert and oriented. PRN metoprolol IV given. Hospitalist notified. Will continue to monitor.
[2020-08-17] VITALS (13 sets, daily range): BP systolic 128–150; BP diastolic 67–86; PULSE 70–152; RESP 16–20; TEMP 35.9–36.9; O2SAT 93–99
[2020-08-17] MEDS: Acetaminophen 325 MG TABLET 650 MG PO (02:49)
[2020-08-17] MEDS: Piperacillin Sodium/Tazobactam 3.375 GM in 0.9 % Sodium Chloride 50 ML IV ×3 (03:37→14:26)
[2020-08-17] MEDS: Levothyroxine Sodium 75 MCG TABLET PO (05:58)
[2020-08-17 07:22] LABS: Vancomycin Trough 17.3 mcg/mL (10.0-20.0)
[2020-08-17 07:59] LABS: Glucose, Whole Blood 185 mg/dL (60-115)
[2020-08-17] MEDS: Insulin Lispro 100 UNIT/ML 3 ML VIAL SUBCUT ×4 (08:25→21:05)
[2020-08-17] MEDS: vancomycin HCL 750 MG in 0.9 % Sodium Chloride 250 ML 265 MG IV ×2 (08:26→19:30)
[2020-08-17] MEDS: Metoprolol Tartrate 50 MG TABLET 100 MG PO ×2 (08:26→21:06)
[2020-08-17] MEDS: Apixaban 5 MG TABLET PO ×2 (08:27→21:06)
[2020-08-17] MEDS: Losartan Potassium 50 MG TABLET PO (08:27)
[2020-08-17] MEDS: Furosemide 40 MG TABLET PO (08:27)
[2020-08-17] MEDS: 0.9 % Sodium Chloride Flush 3 ML SYRINGE IVFLUSH ×4 (08:36→21:06)
[2020-08-17] MEDS: HYDROmorphone HCl 0.5 MG/0.5 ML SYRINGE IVPUSH ×3 (09:28→21:07)
[2020-08-17 11:20] LABS: Glucose, Whole Blood 232 mg/dL (60-115)
--- NOTE | 2020-08-17 12:06 | P.PNIM_ITS ---
Subjective Subjective Date of Service: 08/18/20 Interval History: Patient complaining of lower back pain this morning but denies chest pain, no palpitation, no lightheadedness and dizziness after receiving IV Dilaudid patient back pain improved, heart rate also trended down from 130 -140 range to 100 range. Patient had 1 bowel movement this a.m. after 3 days. ROS General no headache, no dizziness, no fever chills. CVS no chest pain, no palpitation. No Shortness of breath. Gastrointestinal no nausea, no vomiting, no abdominal pain Musculoskeletal back pain Physical Exam Vital Signs: Vital Signs: Last Vital Signs Temp 97.2 F 08/17/20 11:56 Pulse 85 08/17/20 11:56 Resp 17 08/17/20 11:56 BP 148/72 H 08/17/20 11:56 Pulse Ox 99 08/17/20 11:56 Body Mass Index 27.0 General in distress due to back pain Neck is supple no JVD. CVS irregular rate rhythm Respiratory lungs clear to auscultation, no respiratory distress Gastrointestinal abdomen soft, nontender, bowel sounds audible Extremities right heel dressing in place ,left big toe missing, wound well healed with a small area of abrasion remains stable, no drainage. Neuro nonfocal Skin no rash Objective Data Current Medications Generic Name Dose Route Start Last Admin Trade Name Freq PRN Reason Stop Dose Admin Acetaminophen 650 mg 08/17/20 02:37 08/17/20 02:49 Acetaminophen 325 Mg Tablet PO 650 mg Q6H PRN Administration Pain, Moderate (Pain Scale 4-6 Apixaban 5 mg 08/14/20 09:00 08/17/20 08:27 Apixaban 5 Mg Tablet PO 5 mg BID [facility] Administration Furosemide 40 mg 08/14/20 08:00 08/17/20 08:27 Furosemide 40 Mg Tablet PO 40 mg DAILY@0800 [facility] Administration Protocol Hydromorphone HCl 0.5 mg 08/14/20 03:05 08/17/20 09:28 Hydromorphone Hcl 0.5 Mg/0.5 Ml Syringe IVPUSH 0.5 mg Q4H PRN Administration Pain, Severe (Pain Scale 7-10) Piperacillin Sod/Tazobactam 50 mls @ 100 mls/hr 08/14/20 09:00 08/17/20 10:15 Sod 3.375 gm/ Sodium Chloride IV Infused Q6H [facility] Infusion Vancomycin HCl 750 mg/ Sodium 265 mls @ 265 mls/hr 08/14/20 08:00 08/17/20 09:35 Chloride IV Infused Q12H [facility] Infusion Metoprolol Tartrate 5 mg/ 55 mls @ 220 mls/hr 08/15/20 19:59 08/16/20 22:31 Sodium Chloride IV Infused Q6H PRN Infusion HR>125 Insulin Glargine 30 unit 08/14/20 21:00 08/16/20 20:58 Insulin Glargine,Hum.Rec.Anlog 100 Unit/Ml 10 Ml Vial SUBCUT 30 unit BEDTIME [facility] Administration Insulin Human Lispro 0 unit 08/14/20 07:30 08/17/20 11:52 Insulin Lispro 100 Unit/Ml 3 Ml Vial SUBCUT 4 unit QIDACHS [facility] Administration Protocol Levothyroxine Sodium 75 mcg 08/14/20 06:30 08/17/20 05:58 Levothyroxine Sodium 75 Mcg Tablet PO 75 mcg DAILY@0630 [facility] Administration Losartan Potassium 50 mg 08/14/20 09:00 08/17/20 08:27 Losartan Potassium 50 Mg Tablet PO 50 mg DAILY [facility] Administration Protocol Metoprolol Tartrate 100 mg 08/16/20 09:00 08/17/20 08:26 Metoprolol Tartrate 50 Mg Tablet PO 100 mg BID [facility] Administration Protocol Risperidone 0.25 mg 08/14/20 21:00 08/16/20 20:45 Risperidone 0.25 Mg Tablet PO 0.25 mg BEDTIME [facility] Administration Sodium Chloride 3 ml 08/14/20 08:00 08/17/20 08:36 0.9 % Sodium Chloride Flush 3 Ml Syringe IVFLUSH 3 ml QSHIFT [facility] Administration Labs CBC & Chem 7: 08/14/20 06:58 08/18/20 06:39 Microbiology Microbiology Results: Microbiology 08/14/20 01:12 Blood - Venous Blood Culture - Preliminary No growth after 48 hours. 08/14/20 01:12 Blood - Venous Blood Culture - Preliminary No growth after 48 hours. Assessment and Plan (1) Osteomyelitis: Problem details: Patient possible MRSA?other infection not seen Status: Acute (2) Atrial fibrillation with RVR: Status: Acute (3) Discitis of lumbosacral region: Status: Acute Assessment and Plan: 65-year-old female with a past medical history of hypertension, hyperlipidemia, diabetes, AFib on Eliquis, CHF, hypothyroidism, GERD, recent admission to the hospital with diabetic foot ulcer/osteomyelitis of the left foot-finished ant ibiotic course presented to ER with a chief complaint of back pain noted to have L4-L5 diskitis as per the CT scan. Admitted to the hospital for further management. L4-L5 diskitis/osteomyelitis: Back pain this morning resolved with IV Dilaudid, had no fevers, normal WBC count, blood cultures x2 negative, on IV vancomycin and Zosyn, day 4 MRI of the spine showed moderate edema surrounding L4-L5 with small epidural collection extending from L4-L5 disc space there is also phlegmonous engorgement of the epidural space from the level of L2-L5 there is a small collection extending into the prevertebral space at the level of L4-L5 with moderate enhancing edema along the medial margins of the psoas musculature, no discrete psoas abscess noted, case discussed with Dr. Shane, no collection noted for drainage, hold off on SANDRA since blood cultures negative. on IV Dilaudid 0.5 mg q.4 hours as needed will add oxycodone 5 mg q.6 hours Patient with no neurological deficit no leg weakness, no bowel bladder incontinence. Case discussed with ID she recommend 6 weeks of IV antibiotics will place PICC l [facility] on Wednesday and will discuss with oncology social worker regarding discharge plan Diabetes: Blood sugar <200, continue insulin sliding scale, Lantus 30 units, at home take Lantus 40 units at bedtime, Will resume metformin,at home takes 2000 mg daily Hypertension blood pressure is stable continue home medications Cozaar 50 mg, Lasix 40 mg, metoprolol 100 mg b.i.d., was also on Norvasc 10 mg daily, that is held, follow BP and adjust home medication. AFib with rapid ventricular response: Persistent AFib with RVR likely exacerbated due to pain on metoprolol to 100 mg b.i.d. continue Eliquis, patient denies chest pain, no palpitation complaining of shortness of breath, recent echo showed an EF 50-55% no evidence of regional wall motion abnormality, diastolic function is normal. Will give additional dose of metoprolol today and follow heart rate closely. Hypomagnesemia will replace and follow. Code status: Full code
[2020-08-17] MEDS: Metoprolol Tartrate 50 MG TABLET PO (13:21)
[2020-08-17] MEDS: Magnesium Sulfate/D5W 1 GM/100 ML PIGGYBACK IV (13:21)
[2020-08-17] MEDS: Magnesium Oxide 400 MG TABLET PO (13:22)
[2020-08-17 16:26] LABS: Glucose, Whole Blood 188 mg/dL (60-115)
[2020-08-17] MEDS: Metoprolol Tartrate 5 MG in 0.9 % Sodium Chloride 50 ML 110 MG IV (17:50)
[2020-08-17] MEDS: Digoxin 0.5 MG/2 ML AMPUL 0.25 MG IVPUSH (18:34)
[2020-08-17] MEDS: ondansetron HCL 4 MG/2 ML VIAL IVPUSH (19:30)
[2020-08-17 20:29] LABS: Glucose, Whole Blood 199 mg/dL (60-115)
[2020-08-17] MEDS: Insulin Glargine,Hum.rec.anlog 100 UNIT/ML 10 ML VIAL 30 UNIT SUBCUT (21:05)
[2020-08-17] MEDS: risperiDONE 0.25 MG TABLET PO (21:06)
--- NOTE | 2020-08-17 22:26 | PM.IDPN ---
Subjective Subjective Date of Service: 08/16/20 Interval History: she has less back pain Objective Data Labs CBC & Chem 7: 08/14/20 06:58 08/15/20 21:06 Labs: Laboratory Results - last 24 hr 08/17/20 08/17/20 08/17/20 06:29 07:53 11:13 POC Glucose 185 H 232 H Vancomycin Trough 17.3 08/17/20 08/17/20 16:21 20:24 POC Glucose 188 H 199 H Vancomycin Trough Microbiology Microbiology Results: Microbiology 08/14/20 01:12 Blood - Venous Blood Culture - Preliminary No growth after 48 hours. 08/14/20 01:12 Blood - Venous Blood Culture - Preliminary No growth after 48 hours. Physical Exam Vital Signs: Vital Signs: Last Vital Signs Temp 98.4 F 08/17/20 19:22 Pulse 105 H 08/17/20 21:06 Resp 19 08/17/20 19:22 BP 142/84 H 08/17/20 21:06 Pulse Ox 94 08/17/20 19:22 Body Mass Index 27.0 Const: General: cooperative HENMT: Head: Yes normal to inspection Mouth: Normal oral and palatal mucosa present Resp: Effort & Inspection: normal respiratory effort Cardio: Rate: regular rate Rhythm: regular rhythm GI: Palpation (GI): Soft to palpation, nontender and no hepatosplenomegaly Skin: General skin exam: no rashes or lesions noted Assessment and Plan Assessment and plan (1) Osteomyelitis: Problem details: Patient possible MRSA?other infection not seen Status: Acute Assessment and Plan: Would continue Vancomycin with weekly trough and creatinine for 6 weeks Time Spent With Patient Time: Total time spent is greater than 50% in coordination of care (as documented) at patient's floor/unit and/or counseling patient: Time with patient: 15 - 24 minutes
[2020-08-18] VITALS (11 sets, daily range): BP systolic 110–156; BP diastolic 66–84; PULSE 81–107; RESP 14–19; TEMP 36.1–37.1; O2SAT 94–98
[2020-08-18] MEDS: HYDROmorphone HCl 0.5 MG/0.5 ML SYRINGE IVPUSH (00:59)
--- NOTE | 2020-08-18 02:10 | PC.NURSE ---
Patient had a 7 beat of vtac at 0155. Pt assessed, asymptomatic at this time. Hospitalist notified via [employer]. No new orders at this time.
[2020-08-18] MEDS: Levothyroxine Sodium 75 MCG TABLET PO (05:38)
[2020-08-18 07:44] LABS: Anion Gap 14 (12-20); Blood Urea Nitrogen 18 mg/dL (9-16); Calcium 9.6 mg/dL (8.4-10.2); Carbon Dioxide 23 mmol/L (22-29); Chloride 104 mmol/L (96-108); Creatinine Clr Calc Pharmacy 61.1; Estimated Glomerular Filt Rate > 60; Glucose Random 194 mg/dL (60-115); Potassium 3.7 mmol/L (3.3-5.1); Sodium 137 mmol/L (135-145)
[2020-08-18] MEDS: Apixaban 5 MG TABLET PO ×2 (08:24→21:09)
[2020-08-18] MEDS: Insulin Lispro 100 UNIT/ML 3 ML VIAL SUBCUT ×4 (08:24→21:10)
[2020-08-18] MEDS: Losartan Potassium 50 MG TABLET PO (08:25)
[2020-08-18] MEDS: oxyCODONE HCl Immed Release 5 MG TABLET PO ×3 (08:25→21:16)
[2020-08-18] MEDS: Magnesium Oxide 400 MG TABLET PO (08:25)
[2020-08-18 08:26] LABS: Glucose, Whole Blood 184 mg/dL (60-115)
[2020-08-18] MEDS: Metoprolol Tartrate 50 MG TABLET 100 MG PO ×2 (08:26→21:09)
[2020-08-18] MEDS: Furosemide 40 MG TABLET PO (08:27)
[2020-08-18] MEDS: vancomycin HCL 750 MG in 0.9 % Sodium Chloride 250 ML 265 MG IV (08:28)
[2020-08-18] MEDS: dilTIAZem HCL CD 120 MG CAP.ER.DEG PO (10:48)
[2020-08-18 11:19] LABS: Glucose, Whole Blood 256 mg/dL (60-115)
--- NOTE | 2020-08-18 11:49 | P.PNIM_ITS ---
Subjective Subjective Date of Service: 08/18/20 Interval History: Patient feeling significantly better today, lower back pain is better no chest pain, no palpitation tele monitor showed heart rate less than 100. Patient remained in atrial fibrillation with RVR all evening and required IV digoxin. ROS General no headache, no dizziness, no fever chills. CVS no chest pain, no palpitation. No Shortness of breath. Gastrointestinal no nausea, no vomiting, no abdominal pain Musculoskeletal back pain better this a.m. Physical Exam Vital Signs: Vital Signs: Last Vital Signs Temp 98.7 F 08/18/20 11:34 Pulse 89 08/18/20 11:34 Resp 19 08/18/20 11:34 BP 120/84 08/18/20 11:34 Pulse Ox 97 08/18/20 11:34 Body Mass Index 27.0 General resting comfortably this a.m. Neck is supple no JVD. CVS irregular rate rhythm Respiratory lungs clear to auscultation, no respiratory distress Gastrointestinal abdomen soft, nontender, bowel sounds audible Extremities right heel dressing in place ,left big toe missing, wound well healed with a small area of abrasion remains stable, no drainage. Back examination revealed tenderness at L4-L5 with no redness swelling or bruise Neuro nonfocal Skin no rash Objective Data Current Medications Generic Name Dose Route Start Last Admin Trade Name Freq PRN Reason Stop Dose Admin Acetaminophen 650 mg 08/17/20 02:37 08/17/20 02:49 Acetaminophen 325 Mg Tablet PO 650 mg Q6H PRN Administration Pain, Moderate (Pain Scale 4-6 Apixaban 5 mg 08/14/20 09:00 08/18/20 08:24 Apixaban 5 Mg Tablet PO 5 mg BID [facility] Administration Diltiazem HCl 120 mg 08/18/20 09:00 08/18/20 10:48 Diltiazem Hcl Cd 120 Mg Cap.Er.Deg PO 120 mg DAILY [facility] Administration Protocol Furosemide 40 mg 08/14/20 08:00 08/18/20 08:27 Furosemide 40 Mg Tablet PO 40 mg DAILY@0800 [facility] Administration Protocol Hydromorphone HCl 0.5 mg 08/14/20 03:05 08/18/20 00:59 Hydromorphone Hcl 0.5 Mg/0.5 Ml Syringe IVPUSH 0.5 mg Q4H PRN Administration Pain, Severe (Pain Scale 7-10) Vancomycin HCl 750 mg/ Sodium 265 mls @ 265 mls/hr 08/14/20 08:00 08/18/20 09:39 Chloride IV Infused Q12H [facility] Infusion Metoprolol Tartrate 5 mg/ 55 mls @ 220 mls/hr 08/15/20 19:59 08/17/20 18:38 Sodium Chloride IV Infused Q6H PRN Infusion HR>125 Insulin Glargine 30 unit 08/14/20 21:00 08/17/20 21:05 Insulin Glargine,Hum.Rec.Anlog 100 Unit/Ml 10 Ml Vial SUBCUT 30 unit BEDTIME [facility] Administration Insulin Human Lispro 0 unit 08/14/20 07:30 08/18/20 08:24 Insulin Lispro 100 Unit/Ml 3 Ml Vial SUBCUT 2 unit QIDACHS [facility] Administration Protocol Levothyroxine Sodium 75 mcg 08/14/20 06:30 08/18/20 05:38 Levothyroxine Sodium 75 Mcg Tablet PO 75 mcg DAILY@0630 [facility]O Administration Losartan Potassium 50 mg 08/14/20 09:00 08/18/20 08:25 Losartan Potassium 50 Mg Tablet PO 50 mg DAILY [facility] Administration Protocol Magnesium Oxide 400 mg 08/17/20 12:30 08/18/20 08:25 Magnesium Oxide 400 Mg Tablet PO 400 mg DAILY [facility] Administration Metoprolol Tartrate 100 mg 08/16/20 09:00 08/18/20 08:26 Metoprolol Tartrate 50 Mg Tablet PO 100 mg BID [facility] Administration Protocol Ondansetron HCl 4 mg 08/17/20 18:38 08/17/20 19:30 Ondansetron Hcl 4 Mg/2 Ml Vial IVPUSH 4 mg Q6H PRN Administration Nausea Oxycodone HCl 5 mg 08/17/20 12:26 08/18/20 08:25 Oxycodone Hcl Immed Release 5 Mg Tablet PO 5 mg Q4H PRN Administration Pain, Moderate (Pain Scale 4-6 Risperidone 0.25 mg 08/14/20 21:00 08/17/20 21:06 Risperidone 0.25 Mg Tablet PO 0.25 mg BEDTIME [facility] Administration Sodium Chloride 3 ml 08/14/20 08:00 08/17/20 21:06 0.9 % Sodium Chloride Flush 3 Ml Syringe IVFLUSH 3 ml QSHIFT [facility] Administration Labs CBC & Chem 7: 08/14/20 06:58 08/18/20 06:39 Microbiology Microbiology Results: Microbiology 08/14/20 01:12 Blood - Venous Blood Culture - Preliminary No growth after 48 hours. 08/14/20 01:12 Blood - Venous Blood Culture - Preliminary No growth after 48 hours. Assessment and Plan (1) Atrial fibrillation with RVR: Status: Acute (2) Osteomyelitis: Problem details: Patient possible MRSA?other infection not seen Status: Acute (3) Discitis of lumbosacral region: Status: Acute Assessment and Plan: 65-year-old female with a past medical history of hypertension, hyperlipidemia, diabetes, AFib on Eliquis, CHF, hypothyroidism, GERD, recent admission to the hospital with diabetic foot ulcer/osteomyelitis of the left foot-finished antibiotic course presented to ER with a chief complaint of back pain noted to have L4-L5 diskitis as per the CT scan. Admitted to the hospital for further management. L4-L5 diskitis/osteomyelitis: Back pain better controlled with IV Dilaudid, by mouth oxycodone had no fevers, normal WBC count, blood cultures x2 negative, on IV vancomycin day 5 and status post Zosyn now discontinued MRI of the spine showed moderate edema surrounding L4-L5 with small epidural collection extending from L4-L5 disc space there is also phlegmonous engorgement of the epidural space from the level of L2-L5 there is a small collection extending into the prevertebral space at the level of L4-L5 with moderate enhancing edema along the medial margins of the psoas musculature, no discrete psoas abscess noted, case discussed with Dr. Shane, no collection noted for drainage, hold off on SANDRA since blood cultures negative. on IV Dilaudid 0.5 mg q.4 hours as needed and oxycodone 5 mg q.6 hours Patient with no neurological deficit no leg weakness, no bowel bladder incontinence. Case discussed with ID she recommend 6 weeks of IV antibiotics will order PICC line and will discuss with social services counselor regarding discharge plan patient wishes to be discharged to rehab at [facility] Diabetes: Blood sugar above 200 today, on insulin sliding scale, Lantus 30 units, (at home take Lantus 40 units) at bedtime, will increase dose of Lantus to 35 units, at home takes metformin 2000 mg daily hold for now since on vancomycin. Hypertension blood pressure is stable continue home medications Cozaar 50 mg, Lasix 40 mg, metoprolol 100 mg b.i.d., was also on Norvasc 10 mg daily, that is discontinued, since patient started on Cardizem CD for AFib. AFib with rapid ventricular response: Persistent AFib with RVR likely exacerbated due to pain , electrolyte abnormality, on metoprolol to 100 mg b.i.d. continue Eliquis, patient treated with couple doses of digoxin and IV metoprolol. Will place patient on Cardizem CD 1 20 mg daily since recent echo showed an EF 50-55% no evidence of regional wall motion abnormality, diastolic function is normal. Continue tele monitor. Hypomagnesemia resolved repeat magnesium 2. Code status: Full code
[2020-08-18] MEDS: Potassium Chloride ER 20 MEQ TAB.ER.PRT PO (12:09)
[2020-08-18] MEDS: 0.9 % Sodium Chloride Flush 3 ML SYRINGE IVFLUSH ×2 (15:15→23:49)
--- NOTE | 2020-08-18 15:23 | MHC.CM.PN ---
NURSE MOLD WORKER NOTE [employer] MEDICAL RECORD REVIEWED ALONG WITH CASE DISCUSSED WITH STAFF NURSE PER HOSPITALIST DOCUMENTATION PATIENT WITH L4-L5 DISKITIS/OSTEOMYELITIS PAIN IS BETTER CONTROLLED WITH IV DILAUDID AND ORAL OXYCODONE . PER INFECTIOUS DISEASE DOCTOR PATIENT WILL NEED 6 WEEKS OF IV Vancomycin . THE HOSPITALSIT WILL ORDER PIC INE PLACEMENT , PATIENT REPORTS HER PAIN IS BETTER CONTROLLED WITH iv Dilaudid and oral oxycodone mri PATIENT WOULD LIKE TO GO TO [facility] FOR IV ABX AND REHAB , TELE MONITOR SHOWED HEART RATE LESS THAN 100. PATIENT REMAINED IN A-FIBRILLATION WITH RVR ALL ON THE EVENING OF 08/17/20 . PATIENT WAS ON METOPROLOLL, ELIQUIS AND REQUIRED treatment with a couple doses of digoxin and iv metoprolol, also placed on cardizem cd qd DISCHARGE PLAN [facility] FOR REHAB AND IV ABX /PIC INE- CLINICAL UPDATES SENT VIA [employer]
[2020-08-18 16:41] LABS: Glucose, Whole Blood 172 mg/dL (60-115)
[2020-08-18 20:04] LABS: Vancomycin Trough 19.5 mcg/mL (10.0-20.0)
[2020-08-18 20:38] LABS: Glucose, Whole Blood 192 mg/dL (60-115)
[2020-08-18] MEDS: risperiDONE 0.25 MG TABLET PO (21:09)
[2020-08-18] MEDS: Insulin Glargine,Hum.rec.anlog 100 UNIT/ML 10 ML VIAL 35 UNIT SUBCUT (21:12)
[2020-08-18] MEDS: vancomycin HCL 500 MG in 0.9 % Sodium Chloride 100 ML 110 MG IV (21:18)
[2020-08-19] VITALS (7 sets, daily range): BP systolic 130–145; BP diastolic 69–90; PULSE 61–98; RESP 16–18; TEMP 36.3–37; O2SAT 92–99
[2020-08-19] MEDS: Acetaminophen 325 MG TABLET 650 MG PO (00:35)
[2020-08-19] MEDS: oxyCODONE HCl Immed Release 5 MG TABLET PO ×4 (02:09→21:18)
[2020-08-19] MEDS: Levothyroxine Sodium 75 MCG TABLET PO (06:02)
[2020-08-19 07:43] LABS: Glucose, Whole Blood 167 mg/dL (60-115)
[2020-08-19] MEDS: Metoprolol Tartrate 50 MG TABLET 100 MG PO ×2 (08:55→21:17)
[2020-08-19] MEDS: dilTIAZem HCL CD 120 MG CAP.ER.DEG PO (08:55)
[2020-08-19] MEDS: Apixaban 5 MG TABLET PO ×2 (08:55→21:18)
[2020-08-19] MEDS: Magnesium Oxide 400 MG TABLET PO (08:55)
[2020-08-19] MEDS: Losartan Potassium 50 MG TABLET PO (08:56)
[2020-08-19] MEDS: Furosemide 40 MG TABLET PO (08:56)
[2020-08-19] MEDS: Insulin Lispro 100 UNIT/ML 3 ML VIAL SUBCUT ×4 (08:56→21:20)
[2020-08-19] MEDS: 0.9 % Sodium Chloride Flush 3 ML SYRINGE IVFLUSH ×2 (08:57→16:14)
[2020-08-19] MEDS: vancomycin HCL 500 MG in 0.9 % Sodium Chloride 100 ML 110 MG IV (10:49)
[2020-08-19 11:40] LABS: Glucose, Whole Blood 204 mg/dL (60-115)
--- NOTE | 2020-08-19 14:27 | PM.DS ---
DS: Providers Provider Date of Service: 08/21/20 Date of admission: 08/14/20 03:03 Primary care physician: Jessie Sorensen MD Consults: 08/14/20 03:10 Consult to Infectious Diseases Routine Consulting Provider: Jael Westfall Reason for consultation: [id number] DS: Diagnosis Discharge Diagnosis (1) Atrial fibrillation with RVR: Status: Acute (2) Osteomyelitis: Status: Acute Problem details: Patient possible MRSA?other infection not seen (3) Discitis of lumbosacral region: Status: Acute DS: Medications Discharge Medications Home Medications: Home Medications Medication Instructions Recorded Confirmed Lantus Solostar U-100 Insulin 40 unit SUBCUT BEDTIME 06/20/20 08/14/20 amlodipine 10 mg PO DAILY 06/20/20 08/14/20 duloxetine 60 mg PO DAILY 06/20/20 08/14/20 furosemide 40 mg PO DAILY 06/20/20 08/14/20 levothyroxine 75 mcg PO DAILY@0630 06/20/20 08/14/20 losartan 50 mg PO DAILY 06/20/20 08/14/20 metformin 2,000 mg PO DAILY@1700 06/20/20 08/14/20 risperidone 0.25 mg PO BEDTIME 06/20/20 08/14/20 simvastatin 10 mg PO BEDTIME 06/20/20 08/14/20 acetaminophen 325 mg tablet 650 mg PO Q4H PRN 07/24/20 08/14/20 albuterol sulfate [ProAir HFA] 2 puff INHALATION Q4-6H PRN 08/14/20 08/14/20 aspirin 81 mg PO DAILY 08/14/20 08/14/20 cholecalciferol (vitamin D3) 25 mcg PO DAILY 08/14/20 08/14/20 cyanocobalamin (vitamin B-12) 500 mcg PO DAILY 08/14/20 08/14/20 lidocaine 1 patch TOPICAL DAILY 08/14/20 08/14/20 metoprolol tartrate 100 mg PO BID 08/14/20 08/14/20 pantoprazole 20 mg PO DAILY 08/14/20 08/14/20 Previous Rx's Medication Instructions Recorded Eliquis 5 mg PO BID #60 tab 07/09/20 diltiazem HCl [Cardizem CD] 120 mg PO DAILY #30 cap 08/19/20 oxycodone 5 mg PO Q4H PRN #20 tab 08/19/20 polyethylene glycol 3350 [Miralax] 17 g PO DAILY #20 bottle 08/19/20 vancomycin HCl in water 500 mg IV Q12H 37 Days #74 vial 08/19/20 DS: Summary Hospital Course Hospital Course: HPI 65-year-old female with a past medical history of hypertension, hyperlipidemia, diabetes, AFib on Eliquis, CHF, diabetic foot ulcer/left foot osteomyelitis-recently finished antibiotic course presented to the hospital today with a chief complaint of back pain over the past 2 days. Patient reported that she has been having back pain some time especially last admission, has been lingering and there were over the past 2 days it is even in intensity especially at the coccyx and unable to sit. Denies any numbness tingling. Denies any fever chills cough. Denies any recent travel or sick contacts. Mentions that she had COVID-19 vaccination done. Denies any fever chills cough or urinary symptoms. Review of all other systems is negative except mentioned 1 ER course: Per ER physician patient's examination was nonfocal, CT scan showed a L4-L5 diskitis/osteomyelitis. Patient was given vancomycin and Zosyn. Admitted to the hospital for further management. The ER physician also mentioned that patient was noted to be in AFib with RVR on presentation with improvement in heart rate after IV metoprolol. Blood cultures have been sent. Hospital course 65-year-old female admitted with L4-L5 diskitis and osteomyelitis, patient was recently treated with IV antibiotic for strep bacteremia, patient was started on Vanco and Zosyn, MRI spine shows L4-L5 diskitis and osteomyelitis and small phlegmon, case discussed with interventional radiology given no significant collection recommended no drainage, patient has no focal deficit, blood cultures during this admission was negative, princess was not done given no bacteremia, id recommended 6 weeks of vancomycin, patient was stable, PICC line was placed patient was discharged to short-term rehab on IV vancomycin for 6 weeks with End date on 09/24/20 patient will need weekly CBC , BMP, and Vanco trough monitoring while on IV vancomycin, patient will follow-up id Dr. Westfall as outpatient Time Spent with Patient Time attestation: Total time spent providing and/or coordinating discharge services: Discharge coordination time: Greater than 30 minutes Physical Exam Vital Signs: Vital Signs: Last Vital Signs Temp 97.3 F 08/19/20 11:34 Pulse 89 08/19/20 11:34 Resp 17 08/19/20 11:34 BP 130/79 08/19/20 11:34 Pulse Ox 98 08/19/20 11:34 Body Mass Index 27.0 DS: Data Data Completed and Pending Completed studies during hospitalization [Text1]: Procedures Detachment at Left 1st Toe, Complete, Open Approach (06/20/20) Insertion of Infusion Device into Superior Vena Cava, Percutaneous Approach (06/20/20) Ultrasonography of Superior Vena Cava, Guidance (06/20/20) Labs on day of discharge: Laboratory Tests 08/14/20 08/14/20 08/14/20 00:59 00:59 00:59 WBC 10.4 RBC 3.64 L Hgb 10.0 L Hct 31.3 L MCV 86.0 MCH 27.5 MCHC 31.9 RDW 14.0 Plt Count 399 MPV 10.5 Immature Gran % (Auto) 0.3 Neut % (Auto) 66.5 Lymph % (Auto) 23.1 [place] % (Auto) 7.5 Eos % (Auto) 1.4 Baso % (Auto) 1.2 Lymph # (Auto) 2.4 [place] # (Auto) 0.8 Eos # (Auto) 0.2 Baso # (Auto) 0.1 Abs Immat Gran (auto) 0.03 Absolute Neuts (auto) 6.9 Absolute Nucleated RBC 0.000 Nucleated RBC % (auto) 0.0 Hold Purple Top Hold Blue Top Sodium 138 Potassium 3.8 Chloride 100 Carbon Dioxide 27 Anion Gap 15 BUN 13 Creatinine 0.84 Estim Creat Clear Calc 67.7 Estimated GFR > 60 POC Glucose Random Glucose 157 H Lactic Acid 1.8 Calcium 9.2 D Magnesium Troponin I High Sens Vancomycin Trough COVID-19 ([facility]) COVID-19 Clin Com 08/14/20 08/14/20 08/14/20 00:59 01:06 01:06 WBC RBC Hgb Hct MCV MCH MCHC RDW Plt Count MPV Immature Gran % (Auto) Neut % (Auto) Lymph % (Auto) [place] % (Auto) Eos % (Auto) Baso % (Auto) Lymph # (Auto) [place] # (Auto) Eos # (Auto) Baso # (Auto) Abs Immat Gran (auto) Absolute Neuts (auto) Absolute Nucleated RBC Nucleated RBC % (auto) Hold Purple Top SEE NOTE Hold Blue Top SEE NOTE Sodium Potassium Chloride Carbon Dioxide Anion Gap BUN Creatinine Estim Creat Clear Calc Estimated GFR POC Glucose Random Glucose Lactic Acid Calcium Magnesium Troponin I High Sens < 3.5 D Vancomycin Trough COVID-19 ([facility]) COVID-19 Clin Com 08/14/20 08/14/20 08/14/20 04:41 06:58 06:58 WBC 9.8 RBC 3.48 L Hgb 9.5 L Hct 29.4 L MCV 84.5 MCH 27.3 MCHC 32.3 RDW 14.2 Plt Count 391 MPV 10.4 Immature Gran % (Auto) 0.1 Neut % (Auto) 60.5 Lymph % (Auto) 28.2 [place] % (Auto) 8.3 Eos % (Auto) 2.0 Baso % (Auto) 0.9 Lymph # (Auto) 2.8 [place] # (Auto) 0.8 Eos # (Auto) 0.2 Baso # (Auto) 0.1 Abs Immat Gran (auto) 0.01 Absolute Neuts (auto) 5.9 Absolute Nucleated RBC 0.000 Nucleated RBC % (auto) 0.0 Hold Purple Top Hold Blue Top Sodium 139 Potassium 3.8 Chloride 102 Carbon Dioxide 27 Anion Gap 14 BUN 12 Creatinine 0.79 Estim Creat Clear Calc 71.9 Estimated GFR > 60 POC Glucose Random Glucose 102 D Lactic Acid Calcium 9.0 Magnesium Troponin I High Sens Vancomycin Trough COVID-19 ([facility]) Negative COVID-19 Clin Com See Note 08/14/20 08/14/20 08/14/20 07:54 12:07 16:37 WBC RBC Hgb Hct MCV MCH MCHC RDW Plt Count MPV Immature Gran % (Auto) Neut % (Auto) Lymph % (Auto) [place] % (Auto) Eos % (Auto) Baso % (Auto) Lymph # (Auto) [place] # (Auto) Eos # (Auto) Baso # (Auto) Abs Immat Gran (auto) Absolute Neuts (auto) Absolute Nucleated RBC Nucleated RBC % (auto) Hold Purple Top Hold Blue Top Sodium Potassium Chloride Carbon Dioxide Anion Gap BUN Creatinine Estim Creat Clear Calc Estimated GFR POC Glucose 141 H 106 98 Random Glucose Lactic Acid Calcium Magnesium Troponin I High Sens Vancomycin Trough COVID-19 ([facility]) COVID-19 [facility] 08/14/20 08/15/20 08/15/20 20:40 07:54 11:22 WBC RBC Hgb Hct MCV MCH MCHC RDW Plt Count MPV Immature Gran % (Auto) Neut % (Auto) Lymph % (Auto) [place] % (Auto) Eos % (Auto) Baso % (Auto) Lymph # (Auto) [place] # (Auto) Eos # (Auto) Baso # (Auto) Abs Immat Gran (auto) Absolute Neuts (auto) Absolute Nucleated RBC Nucleated RBC % (auto) Hold Purple Top Hold Blue Top Sodium Potassium Chloride Carbon Dioxide Anion Gap BUN Creatinine Estim Creat Clear Calc Estimated GFR POC Glucose 136 H 114 229 H Random Glucose Lactic Acid Calcium Magnesium Troponin I High Sens Vancomycin Trough COVID-19 ([facility]) COVID-19 [facility] 08/15/20 08/15/20 08/15/20 16:04 18:55 20:44 WBC RBC Hgb Hct MCV MCH MCHC RDW Plt Count MPV Immature Gran % (Auto) Neut % (Auto) Lymph % (Auto) [place] % (Auto) Eos % (Auto) Baso % (Auto) Lymph # (Auto) [place] # (Auto) Eos # (Auto) Baso # (Auto) Abs Immat Gran (auto) Absolute Neuts (auto) Absolute Nucleated RBC Nucleated RBC % (auto) Hold Purple Top Hold Blue Top Sodium Potassium Chloride Carbon Dioxide Anion Gap BUN Creatinine Estim Creat Clear Calc Estimated GFR POC Glucose 108 189 H Random Glucose Lactic Acid Calcium Magnesium Troponin I High Sens Vancomycin Trough 14.0 COVID-19 ([facility]) COVID-19 [facility] 08/15/20 08/16/20 08/16/20 21:06 08:11 12:01 WBC RBC Hgb Hct MCV MCH MCHC RDW Plt Count MPV Immature Gran % (Auto) Neut % (Auto) Lymph % (Auto) [place] % (Auto) Eos % (Auto) Baso % (Auto) Lymph # (Auto) [place] # (Auto) Eos # (Auto) Baso # (Auto) Abs Immat Gran (auto) Absolute Neuts (auto) Absolute Nucleated RBC Nucleated RBC % (auto) Hold Purple Top Hold Blue Top Sodium 136 Potassium 3.6 Chloride 100 Carbon Dioxide 23 Anion Gap 17 BUN 18 H Creatinine 1.16 Estim Creat Clear Calc 49.0 Estimated GFR 47 POC Glucose 162 H 219 H Random Glucose 189 H D Lactic Acid Calcium 9.0 Magnesium 1.4 L* Troponin I High Sens Vancomycin Trough COVID-19 ([facility]) COVID-19 [facility] 08/16/20 08/16/20 08/17/20 17:12 20:32 06:29 WBC RBC Hgb Hct MCV MCH MCHC RDW Plt Count MPV Immature Gran % (Auto) Neut % (Auto) Lymph % (Auto) [place] % (Auto) Eos % (Auto) Baso % (Auto) Lymph # (Auto) [place] # (Auto) Eos # (Auto) Baso # (Auto) Abs Immat Gran (auto) Absolute Neuts (auto) Absolute Nucleated RBC Nucleated RBC % (auto) Hold Purple Top Hold Blue Top Sodium Potassium Chloride Carbon Dioxide Anion Gap BUN Creatinine Estim Creat Clear Calc Estimated GFR POC Glucose 138 H 215 H Random Glucose Lactic Acid Calcium Magnesium Troponin I High Sens Vancomycin Trough 17.3 COVID-19 ([facility]) COVID-19 [facility] 08/17/20 08/17/20 08/17/20 07:53 11:13 16:21 WBC RBC Hgb Hct MCV MCH MCHC RDW Plt Count MPV Immature Gran % (Auto) Neut % (Auto) Lymph % (Auto) [place] % (Auto) Eos % (Auto) Baso % (Auto) Lymph # (Auto) [place] # (Auto) Eos # (Auto) Baso # (Auto) Abs Immat Gran (auto) Absolute Neuts (auto) Absolute Nucleated RBC Nucleated RBC % (auto) Hold Purple Top Hold Blue Top Sodium Potassium Chloride Carbon Dioxide Anion Gap BUN Creatinine Estim Creat Clear Calc Estimated GFR POC Glucose 185 H 232 H 188 H Random Glucose Lactic Acid Calcium Magnesium Troponin I High Sens Vancomycin Trough COVID-19 ([facility]) COVID-19 [facility] 08/17/20 08/18/20 08/18/20 20:24 06:39 07:43 WBC RBC Hgb Hct MCV MCH MCHC RDW Plt Count MPV Immature Gran % (Auto) Neut % (Auto) Lymph % (Auto) [place] % (Auto) Eos % (Auto) Baso % (Auto) Lymph # (Auto) [place] # (Auto) Eos # (Auto) Baso # (Auto) Abs Immat Gran (auto) Absolute Neuts (auto) Absolute Nucleated RBC Nucleated RBC % (auto) Hold Purple Top Hold Blue Top Sodium 137 Potassium 3.7 Chloride 104 Carbon Dioxide 23 Anion Gap 14 BUN 18 H Creatinine 0.93 Estim Creat Clear Calc 61.1 Estimated GFR > 60 POC Glucose 199 H 184 H Random Glucose 194 H Lactic Acid Calcium 9.6 D Magnesium 2.0 Troponin I High Sens Vancomycin Trough COVID-19 ([facility]) COVID-19 [facility] 08/18/20 08/18/20 08/18/20 11:13 16:24 19:25 WBC RBC Hgb Hct MCV MCH MCHC RDW Plt Count MPV Immature Gran % (Auto) Neut % (Auto) Lymph % (Auto) [place] % (Auto) Eos % (Auto) Baso % (Auto) Lymph # (Auto) [place] # (Auto) Eos # (Auto) Baso # (Auto) Abs Immat Gran (auto) Absolute Neuts (auto) Absolute Nucleated RBC Nucleated RBC % (auto) Hold Purple Top Hold Blue Top Sodium Potassium Chloride Carbon Dioxide Anion Gap BUN Creatinine Estim Creat Clear Calc Estimated GFR POC Glucose 256 H 172 H Random Glucose Lactic Acid Calcium Magnesium Troponin I High Sens Vancomycin Trough 19.5 COVID-19 ([facility]) COVID-19 [facility] 08/18/20 08/19/20 08/19/20 20:26 07:37 11:34 WBC RBC Hgb Hct MCV MCH MCHC RDW Plt Count MPV Immature Gran % (Auto) Neut % (Auto) Lymph % (Auto) [place] % (Auto) Eos % (Auto) Baso % (Auto) Lymph # (Auto) [place] # (Auto) Eos # (Auto) Baso # (Auto) Abs Immat Gran (auto) Absolute Neuts (auto) Absolute Nucleated RBC Nucleated RBC % (auto) Hold Purple Top Hold Blue Top Sodium Potassium Chloride Carbon Dioxide Anion Gap BUN Creatinine Estim Creat Clear Calc Estimated GFR POC Glucose 192 H 167 H 204 H Random Glucose Lactic Acid Calcium Magnesium Troponin I High Sens Vancomycin Trough COVID-19 ([facility]) COVID-19 [facility] Discharge Plan Discharge Anticipated Discharge Date/Time: 08/19/20 14:01 Patient Disposition: Xfer SNF Referrals: Jessie Orourke MD [Primary Care Provider] - Discharge Medications: New diltiazem HCl [Cardizem CD] 120 mg Capsule,Extended Release 24hr 120 mg PO DAILY Qty: 30 RF: 0 oxycodone 5 mg Tablet 5 mg PO Q4H PRN (Reason: Pain, Moderate (Pain Scale 4-6) Qty: 20 RF: 0 vancomycin HCl in water 100 mg/mL solution 500 mg IV Q12H 37 Days Qty: 74 RF: 0 polyethylene glycol 3350 [Miralax] 17 gram/dose powder 17 g PO DAILY Qty: 20 RF: 0 Continued losartan 50 mg tablet 50 mg PO DAILY RF: 0 furosemide 40 mg tablet 40 mg PO DAILY RF: 0 simvastatin 10 mg tablet 10 mg PO BEDTIME RF: 0 levothyroxine 75 mcg tablet 75 mcg PO DAILY@0630 RF: 0 amlodipine 10 mg tablet 10 mg PO DAILY RF: 0 metformin 1,000 mg tablet 2,000 mg PO DAILY@1700 RF: 0 duloxetine 60 mg capsule,delayed release(DR/EC) 60 mg PO DAILY RF: 0 risperidone 0.25 mg Tablet 0.25 mg PO BEDTIME RF: 0 Lantus Solostar U-100 Insulin 100 unit/mL (3 mL) Insulin Pen 40 unit SUBCUT BEDTIME RF: 0 Eliquis 5 mg Tablet 5 mg PO BID Qty: 60 RF: 2 metoprolol tartrate 100 mg Tablet 100 mg PO BID RF: 0 pantoprazole 20 mg Tablet,Delayed Release (Dr/Ec) 20 mg PO DAILY RF: 0 lidocaine 5 % Adhesive Patch,Medicated 1 patch TOPICAL DAILY RF: 0 cholecalciferol (vitamin D3) 25 mcg (1,000 unit) Tablet 25 mcg PO DAILY RF: 0 aspirin 81 mg Tablet,Delayed Release (Dr/Ec) 81 mg PO DAILY RF: 0 albuterol sulfate [ProAir HFA] 90 mcg/actuation Hfa Aerosol Inhaler 2 puff INHALATION Q4-6H PRN (Reason: Shortness Of Breath) RF: 0 cyanocobalamin (vitamin B-12) 500 mcg Tablet 500 mcg PO DAILY RF: 0 acetaminophen 325 mg tablet 650 mg PO Q4H PRN (Reason: Pain (Scale Score 1-3)) RF: 0 Discharge Orders: Discharge Order (Routine); Ordered 08/19/20 Ordered By: Nilton Leung Diet: low salt diet Activity on Discharge: As tolerated Stand Alone Forms: Patient Portal Discharge page Care Plan Goals: treat osteomyelitis Health Concerns: osteomyelitis Plan of Treatment: IV antibiotic Discharge Date/Time: 08/20/20 15:01
[2020-08-19 14:41] LABS: COVID-19 Test Negative (Negative)
--- NOTE | 2020-08-19 15:07 | HO.PICC ---
[facility] Diagnosis: L4-L5 OSTEOMYELITIS Indication: AUTOMOTIVE EXHAUST EMISSIONS TECHNICIAN IV ANTIBIOTICS Pertinent Labs: REVIEWED Technique: Following informed consent including risks, benefits and alternatives and using sterile technique including cap and mask, sterile gown, glove and drape, the RIGHT arm was prepped and draped in the usual sterile fashion of full barrier technique with CHG. Following completion of [place] Protocol the skin and soft tissues were anesthetized with 1% Lidocaine plain. Using ultrasound guidance, BASILIC vein access was obtained IN SINGLE ATTEMPT. Over an 0.018 wire through peel-away sheath, a 4 [place], SINGLE LUMEN, PASV, PICC line was positioned. Catheter length is 42 CM internal length, 0 CM external length, for a total trimmed length of 42 CM. The procedure was performed in ULTRASOUND-1. Tip verification TO BE CONFIRMED BY CXR; CXR OBTAINED S/P PICC PLACEMENT AND AWAITING RADIOLOGIST IMPRESSION. Ultrasound was used to document vein patency and for needle entry. A formal ultrasound picture. Vascular Expanded Duty Dental Assistant has NOT released the line for use; AWAITING CXR RESULT. PICC is currently dressed with a StatLock, Tegaderm, and CHG disc. Verification has been performed for blood return and line patency. Arm Circumference: 39.5 CM Equipment: V I O POWER PICC SOLO Catheter Type: 4 [place], SINGLE LUMEN, PASV Lot #: [id number]
--- NOTE | 2020-08-19 16:02 | MHC.CM.PN ---
pt wanted to go to [facility] but [facility] is closed to admissions and [facility] does not accept her insurance. pt requested ref. be made to [facility] this was done and patient has been accepted. at this moment snf is going for auth, it is most likely auth will not come back until tomorrow at which time patient can dc to [facility]. md and rn are aware of this dc plan. cm to cont. to follow.
[2020-08-19 16:17] LABS: Glucose, Whole Blood 183 mg/dL (60-115)
--- NOTE | 2020-08-19 16:52 | HO.PM.IMPN ---
Subjective Subjective Date of Service: 08/19/20 Interval History: patient seen and examined at bedside patient denies any complaint ROS General no headache, no dizziness, no fever chills. CVS no chest pain, no palpitation. No Shortness of breath. Gastrointestinal no nausea, no vomiting, no abdominal pain Musculoskeletal back pain better this a.m. Physical Exam Vital Signs: Vital Signs: Last Vital Signs Temp 97.9 F 08/19/20 15:54 Pulse 98 08/19/20 15:54 Resp 18 08/19/20 15:54 BP 132/72 08/19/20 15:54 Pulse Ox 95 08/19/20 15:54 Body Mass Index 27.0 Const: General: cooperative Orientation/consciousness: patient oriented x3 HENMT: Head: Yes normal to inspection Mouth: Normal oral and palatal mucosa present Eyes: General: appearance normal, both eyes and all related structures Resp: Effort & Inspection: normal respiratory effort Cardio: Rate: regular rate Rhythm: regular rhythm GI: Palpation (GI): Soft to palpation, nontender and no hepatosplenomegaly Back/Spine/Pelvis: Other: pain lower back L4-L5 Skin: General skin exam: no rashes or lesions noted Neuro: General: patient oriented x3 and CN's II-XI intact bilaterally Objective Data Current Medications Generic Name Dose Route Start Last Admin Trade Name Freq PRN Reason Stop Dose Admin Acetaminophen 650 mg 08/17/20 02:37 08/19/20 00:35 Acetaminophen 325 Mg Tablet PO 650 mg Q6H PRN Administration Pain, Moderate (Pain Scale 4-6 Apixaban 5 mg 08/14/20 09:00 08/19/20 08:55 Apixaban 5 Mg Tablet PO 5 mg BID PAPO Administration Diltiazem HCl 120 mg 08/18/20 09:00 08/19/20 08:55 Diltiazem Hcl Cd 120 Mg Cap.Er.Deg PO 120 mg DAILY PAPO Administration Protocol Furosemide 40 mg 08/14/20 08:00 08/19/20 08:56 Furosemide 40 Mg Tablet PO 40 mg DAILY@0800 PAPO Administration Protocol Metoprolol Tartrate 5 mg/ 55 mls @ 220 mls/hr 08/15/20 19:59 08/17/20 18:38 Sodium Chloride IV Infused Q6H PRN Infusion HR>125 Vancomycin HCl 500 mg/ Sodium 110 mls @ 110 mls/hr 08/18/20 21:00 08/19/20 11:50 Chloride IV Infused Q12H [facility] Infusion Insulin Glargine 35 unit 08/18/20 21:00 08/18/20 21:12 Insulin Glargine,Hum.Rec.Anlog 100 Unit/Ml 10 Ml Vial SUBCUT 35 unit BEDTIME [facility] Administration Insulin Human Lispro 0 unit 08/14/20 07:30 08/19/20 16:32 Insulin Lispro 100 Unit/Ml 3 Ml Vial SUBCUT 2 unit QIDACHS [facility] Administration Protocol Levothyroxine Sodium 75 mcg 08/14/20 06:30 08/19/20 06:02 Levothyroxine Sodium 75 Mcg Tablet PO 75 mcg DAILY@0630 [facility] Administration Losartan Potassium 50 mg 08/14/20 09:00 08/19/20 08:56 Losartan Potassium 50 Mg Tablet PO 50 mg DAILY [facility] Administration Protocol Magnesium Oxide 400 mg 08/17/20 12:30 08/19/20 08:55 Magnesium Oxide 400 Mg Tablet PO 400 mg DAILY [facility] Administration Metoprolol Tartrate 100 mg 08/16/20 09:00 08/19/20 08:55 Metoprolol Tartrate 50 Mg Tablet PO 100 mg BID [facility] Administration Protocol Ondansetron HCl 4 mg 08/17/20 18:38 08/17/20 19:30 Ondansetron Hcl 4 Mg/2 Ml Vial IVPUSH 4 mg Q6H PRN Administration Nausea Oxycodone HCl 5 mg 08/17/20 12:26 08/19/20 13:17 Oxycodone Hcl Immed Release 5 Mg Tablet PO 5 mg Q4H PRN Administration Pain, Moderate (Pain Scale 4-6 Risperidone 0.25 mg 08/14/20 21:00 08/18/20 21:09 Risperidone 0.25 Mg Tablet PO 0.25 mg BEDTIME [facility] Administration Sodium Chloride 3 ml 08/14/20 08:00 08/19/20 16:14 0.9 % Sodium Chloride Flush 3 Ml Syringe IVFLUSH 3 ml QSHIFT [facility] Administration Labs CBC & Chem 7: 08/14/20 06:58 08/18/20 06:39 Microbiology Microbiology Results: Microbiology 08/14/20 01:12 Blood - Venous Blood Culture - Final No growth after 5 days. 08/14/20 01:12 Blood - Venous Blood Culture - Final No growth after 5 days. Assessment and Plan (1) Atrial fibrillation with RVR: Status: Acute (2) Osteomyelitis: Problem details: Patient possible MRSA?other infection not seen Status: Acute (3) Discitis of lumbosacral region: Status: Acute Assessment and Plan: 65-year-old female with a past medical history of hypertension, hyperlipidemia, diabetes, AFib on Eliquis, CHF, hypothyroidism, GERD, recent admission to the hospital with diabetic foot ulcer/osteomyelitis of the left foot-finished antibiotic course presented to ER with a chief complaint of back pain noted to have L4-L5 diskitis as per the CT scan. Admitted to the hospital for further management. L4-L5 diskitis/osteomyelitis: Back pain better controlled with IV Dilaudid, by mouth oxycodone had no fevers, normal WBC count, blood cultures x2 negative, on IV vancomycin day 5 and status post Zosyn now discontinued MRI of the spine showed moderate edema surrounding L4-L5 with small epidural collection extending from L4-L5 disc space there is also phlegmonous engorgement of the epidural space from the level of L2-L5 there is a small collection extending into the prevertebral space at the level of L4-L5 with moderate enhancing edema along the medial margins of the psoas musculature, no discrete psoas abscess noted, case discussed with Dr. Shane, no collection noted for drainage, hold off on SANDRA since blood cultures negative. on IV Dilaudid 0.5 mg q.4 hours as needed and oxycodone 5 mg q.6 hours Patient with no neurological deficit no leg weakness, no bowel bladder incontinence. Case discussed with ID she recommend 6 weeks of IV antibiotics will order PICC placed today, Diabetes mellitus continue insulin sliding scale, continue Lantus monitor blood glucose Hypertension blood pressure is stable continue home medications Cozaar 50 mg, Lasix 40 mg, metoprolol 100 mg b.i.d., was also on Norvasc 10 mg daily, that is discontinued, since patient started on Cardizem CD for AFib. AFib with rapid ventricular response heart rate improved continue Lopressor and Cardizem continue Eliquis . Continue tele monitor. Hypomagnesemia resolved repeat magnesium 2. Code status: Full code
[2020-08-19 20:52] LABS: Glucose, Whole Blood 203 mg/dL (60-115)
[2020-08-19] MEDS: risperiDONE 0.25 MG TABLET PO (21:17)
[2020-08-19] MEDS: vancomycin HCL 500 MG in 0.9 % Sodium Chloride 100 ML 100 MG IV (21:17)
[2020-08-19] MEDS: Insulin Glargine,Hum.rec.anlog 100 UNIT/ML 10 ML VIAL 35 UNIT SUBCUT (21:19)
[2020-08-20] MEDS: 0.9 % Sodium Chloride Flush 3 ML SYRINGE IVFLUSH ×2 (01:11→09:30)
[2020-08-20] MEDS: oxyCODONE HCl Immed Release 5 MG TABLET PO ×3 (01:18→11:12)
[2020-08-20 04:00] VITALS: BP 130/81; PULSE 91; RESP 16; TEMP 36.8; O2SAT 100
[2020-08-20] MEDS: Levothyroxine Sodium 75 MCG TABLET PO (05:55)
[2020-08-20 07:47] VITALS: BP 142/86; PULSE 88; RESP 18; TEMP 36.9; O2SAT 92
[2020-08-20] MEDS: Magnesium Oxide 400 MG TABLET PO (07:56)
[2020-08-20 07:57] VITALS: BP 142/86; PULSE 88
[2020-08-20] MEDS: Metoprolol Tartrate 50 MG TABLET 100 MG PO (07:57)
[2020-08-20] MEDS: Apixaban 5 MG TABLET PO (07:57)
[2020-08-20] MEDS: Furosemide 40 MG TABLET PO (07:57)
[2020-08-20] MEDS: dilTIAZem HCL CD 120 MG CAP.ER.DEG PO (07:57)
[2020-08-20 07:58] VITALS: BP 142/86; PULSE 88
[2020-08-20] MEDS: Losartan Potassium 50 MG TABLET PO (07:58)
[2020-08-20 08:26] LABS: Glucose, Whole Blood 154 mg/dL (60-115)
[2020-08-20] MEDS: Insulin Lispro 100 UNIT/ML 3 ML VIAL SUBCUT ×2 (09:29→13:09)
[2020-08-20 10:56] LABS: Vancomycin Trough 13.2 mcg/mL (10.0-20.0)
[2020-08-20 12:00] VITALS: BP 128/74; PULSE 88; RESP 16; TEMP 36.8; O2SAT 97
--- NOTE | 2020-08-20 12:49 | MHC.CM.NN ---
NURSE MOTORCYCLE DESIGNER NOTE ELECTRONIC MEDICAL RECORD REVIEWED ALONG WITH CASE DISCUSSED WITH STAFF NURSE AND ON MULTIPLE DISCIPLINARY ROUNDS. MET WITH PATIENT MEDICARE IMM UPDATED, CONFIRMED WITH THE CODY THAT THEY HAVE INSURANCE AUTHORIZATION AND THAT PATIENT HAS BEEN ACCEPRTED AT [facility] CONFIRMED WITH HOSPITALIST AND CALLED TO PATIENTS SISTER VANGIE [phone] DISCHARGE PLAN DISCHARGED TO [facility] FOR IV ABX AND REHAB TO BE TRAN[facility]ORTED [facility]
[2020-08-20 13:03] LABS: Glucose, Whole Blood 177 mg/dL (60-115)
[2020-08-20] MEDS: vancomycin HCL 500 MG in 0.9 % Sodium Chloride 100 ML 110 MG IV (13:08)
== END 2020-08-20 15:01 | disposition skilled nursing facility (03) | DRG 552 ==
LOC: HO.ED 02:53 → HO.EDOVER 03:25 → HO.S3 19:28
PROVIDERS: Hospitalist; Student in an Organized Health Care Education/Training Program; Admitting Provider Hospitalist; Emergency Provider Emergency Medicine; PCP Internal Medicine; Visit Provider Internal Medicine
DX: M46.47 Discitis, unspecified, lumbosacral region (principal); M86.172 Other acute osteomyelitis, left ankle and foot; E11.69 Type 2 diabetes mellitus with other specified complication; I48.91 Unspecified atrial fibrillation; Z20.822 Contact with and (suspected) exposure to COVID-19; E83.42 Hypomagnesemia; B95.62 Methicillin resistant Staphylococcus aureus infection as the cause of diseases classified elsewhere; Z88.0 Allergy status to penicillin; Z88.2 Allergy status to sulfonamides; Z79.4 Long term (current) use of insulin; Z79.82 Long term (current) use of aspirin; Z79.890 Hormone replacement therapy; Z79.891 Long term (current) use of opiate analgesic; Z79.899 Other long term (current) drug therapy
CPT/HCPCS: 36415; 36573; 71045; 71046; 71250; 72131; 72158; 80048; 80202; 82947; 83605; 83735; 84484; 85025; 87040; 87635; 93005; 93306; 96365; 96375; 97110; 97116; 97162; 97166; 97535; 99285; A9585; C1751; J1160; J1170; J2060; J2405; J2543; J3370; J3475

== ENCOUNTER → 2020-09-06 12:01 | Outpatient (BNVA) | payer MEDICARE, SELFPAY | PROVIDERS: PCP Internal Medicine; Visit Provider Surgery ==

== ENCOUNTER → 2020-09-12 12:38 | Outpatient (BNVA) | payer MEDICARE, SELFPAY | PROVIDERS: PCP Internal Medicine; Visit Provider Surgery | DX: Z47.81 Encounter for orthopedic aftercare following surgical amputation (principal); Z89.412 Acquired absence of left great toe; M86.172 Other acute osteomyelitis, left ankle and foot | CPT/HCPCS: 99212 ==

== ENCOUNTER → 2020-09-17 10:35 | Outpatient (BNVA) | payer MEDICARE, SELFPAY | PROVIDERS: PCP Internal Medicine; Visit Provider Nurse Practitioner Family | DX: I48.0 Paroxysmal atrial fibrillation (principal); I48.91 Unspecified atrial fibrillation; I10 Essential (primary) hypertension; I42.9 Cardiomyopathy, unspecified; Z79.899 Other long term (current) drug therapy | CPT/HCPCS: 93005; 99212 ==

== ENCOUNTER → 2020-10-07 13:25 | Outpatient (BNVA) | payer MEDICARE, SELFPAY | PROVIDERS: PCP Internal Medicine; Visit Provider Internal Medicine | DX: M86.9 Osteomyelitis, unspecified (principal) | CPT/HCPCS: 99212 ==

== ENCOUNTER → 2020-10-10 11:20 | Outpatient (BNVA) | payer MEDICARE, SELFPAY | PROVIDERS: PCP Internal Medicine; Visit Provider Nurse Practitioner Family | DX: I48.0 Paroxysmal atrial fibrillation (principal); I42.9 Cardiomyopathy, unspecified; I10 Essential (primary) hypertension; Z79.82 Long term (current) use of aspirin; Z79.899 Other long term (current) drug therapy | CPT/HCPCS: 99212 ==

== ENCOUNTER → 2020-10-15 13:31 | Outpatient (BNVA) | payer MEDICARE, SELFPAY | PROVIDERS: PCP Internal Medicine; Visit Provider Surgery | DX: M86.9 Osteomyelitis, unspecified (principal) | CPT/HCPCS: 99212 ==

== ENCOUNTER 2020-10-20 12:01 | Inpatient (IN) | payer MEDICARE, OTHER, SELFPAY ==
[2020-10-20] VITALS (7 sets, daily range): BP systolic 102–139; BP diastolic 54–96; PULSE 67–110; RESP 15–18; TEMP 36.5–37; O2SAT 95–100; BMI 23.9
--- NOTE | ~2020-10-20 | CT_ITS ---
PROCEDURE: CT GUIDED ASPIRATION, FINE NEEDLE, WITH IMAGE GUIDANCE CLINICAL INFORMATION: L4-L5 discitis with epidural asymmetric thickness and enhancement. COMPARISON: None TECHNIQUE: Following explaining CT fluoroscopy-guided L4-L5 disc aspiration procedure, benefits and risk, a written consent was obtained. Patient was placed prone on fluoroscopy table, and preliminary CT imaging was obtained. An optimal site was selected at the L4-L5 disc level and marked on right paraspinal region. The marked skin site was cleaned and draped in the usual sterile manner. 1% lidocaine was injected at puncture site. A 20-gauge 15 cm long Shahida needle was advanced from the skin into the disc space at the L4-L5 disc level under CT fluoroscopy guidance. A 2 pass aspiration was performed through the disc and the paravertebral soft tissues. The sample collected was sent withdrawn and complete hemostasis achieved at puncture site. Patient tolerated the procedure extremely well. Conscious sedation was performed during the exam and patient observed by IR nursing and radiologist for [address] examination was performed using dose optimization techniques as appropriate, variously including the following: *Automated exposure control *Adjustment of mA and/or kV according to patient size (this includes techniques or standardized protocols for targeted exams where dose is matched to indication/reason for exam; i.e. extremities or head) *Use of iterative reconstruction technique DLP: 462 mGy-cm FINDINGS: On CT fluoroscopy, there are endplate changes at the L4 and L5 disc level with loss of joint space. A [address] fluoroscopy-guided L4-L5 disc aspiration was performed without immediate complications. CT/CT guided aspiration IMPRESSION: Successful CT fluoroscopy-guided L4-L5 disc aspiration was performed.
--- NOTE | ~2020-10-20 | CT_ITS ---
EXAMINATION: CT LUMBAR SPINE WITH CONTRAST CLINICAL INFORMATION: Evaluate worsening osteophyte versus abscess. COMPARISON: CT scan lumbosacral spine August 2020 and MRI of the lumbosacral spine August 2020. TECHNIQUE: CT scan of lumbosacral spine was performed with 85 mL of Omnipaque 300 contrast given intravenously. This CT examination was performed using dose optimization techniques as appropriate, variously including the following: *Automated exposure control. *Adjustment of mA and/or kV according to patient size (this includes techniques or standardized protocols for targeted exams where dose is matched to indication/reason for exam; i.e. extremities or head). *Use of iterative reconstruction technique. DLP: 430 mGy-cm FINDINGS: Transitional vertebral anatomy with partial lumbarization of S1. There is fusion of the right transverse process of S1 with the sacrum and non-fusion of the left transverse process with sacral ala. Rudimentary S1-S2 in the prevertebral disc as before. Stable grade 1 anterolisthesis of L5 on S1. Otherwise, alignment intact. Slight compression of the superior endplate of L1, unchanged L4-L5: Again noted is destructive changes along the disc space with irregularity of the endplates. There is gas present within the disc space not seen previously. The abnormal disc space appears to be slightly more narrowed compared to prior perhaps related to progressive destructive changes of the disc. Endplate sclerosis also noted likely reactive to inflammatory process. No new bony abnormality. Again noted is poor visualization of the epidural fat from L3-L4 through the inferior endplate of L5 which could reflect persistent phlegmon within the epidural space more clearly depicted on MRI. There is persistent prevertebral heterogeneous abnormal soft tissue density slightly less prominent compared to prior likely reflecting persistent inflammatory change but without a discrete abscess. Persistent degenerative changes throughout the remaining lumbosacral spine, unchanged compared to prior, with degenerative disc changes present at L1-L2 and L2-L3 and multilevel facet arthrosis at L4-L5 and L5-S1. CT/CT lumbar spine w con IMPRESSION: 1. Findings consistent with discitis osteomyelitis at the L4-L5 level, similar when compared to prior. Of note, the disc space is narrowed compared to prior likely reflecting evolving disc destruction related to the infectious process. There is persistent albeit slight decreased inflammatory change in the surrounding soft tissues outside of the disc space. I do not see a new or developing abscess. 2. Possible persistent inflammatory change in the epidural space but no localized abscess. This is more clearly seen on the prior MRI. 3. No new areas of bone destruction.
--- NOTE | ~2020-10-20 | XR_ITS ---
EXAMINATION: XR CHEST CLINICAL INFORMATION: Leukocytosis COMPARISON: 08/20/2020 TECHNIQUE: Frontal view of the chest was obtained. FINDINGS: Lungs are clear. No focal consolidation or mass. Enlarged left pulmonary artery again seen is soft tissue prominence in the AP window. Mild pulmonary edema. No pleural effusion or pneumothorax. Normal heart size. Moderate degenerative arthrosis of the right shoulder. XR/XR chest 1V IMPRESSION: No acute pulmonary disease. Persistent enlargement of the left pulmonary artery suggesting underlying pulmonary arterial hypertension.
--- NOTE | ~2020-10-20 | MR_ITS ---
EXAMINATION: MR LUMBAR SPINE WITHOUT AND WITH CONTRAST CLINICAL INFORMATION: Osteomyelitis. COMPARISON: Lumbar spine CT 10/20/2020. TECHNIQUE: MRI of the lumbar spine was obtained using routine sequences without and with intravenous contrast. A total of 7 mL Gadavist was intravenously administered. FINDINGS: There is significant edema enhancement at the L4-L5 level centered about the endplates with erosive changes noted. Fluid signal is seen within the disc space compatible with intradiscal abscess. Significant thickening enhancement is seen along the ventral and to lesser extent dorsal epidural space centered at the L4-L5 level extending down to the S1 level compatible with epidural phlegmon. No drainable epidural abscess is seen. The epidural phlegmonous changes results in significant thecal sac compression with effacement of the subarachnoid space from L4 to L5. No cauda equina nerve root enhancement is seen. There is mild chronic compression fracture at L1. Minimal retrolisthesis is seen at L2 on L3 and L3 on L4. There is grade 1 anterolisthesis of L5 on S1 related to severe facet arthropathy. The distal spinal cord appears normal. The conus medullaris terminates normally at the L1 level. No discrete psoas abscess or other retroperitoneal abscess is seen. There is a right-sided renal cysts (no routine follow-up is recommended). SPINAL LEVELS: L1-L2: Disc bulging. Mild bilateral neural foraminal stenosis. L2-L3: Disc bulging. Mild facet arthropathy. No spinal canal or neural foraminal stenosis. L3-L4: Disc bulging with tiny central disc protrusion. Bilateral facet arthropathy. Mild neural foraminal stenosis. L4-L5: Significant osteomyelitis discitis. Epidural phlegmon causing severe spinal canal stenosis with thecal sac compression. Severe bilateral neural foraminal stenosis with compression of both foraminal L4 nerve root segments. L5-S1: Grade 1 anterolisthesis. Severe facet arthropathy. No spinal canal stenosis. Mild neural foraminal stenosis without significant foraminal nerve root compression. MR/MR lumbar spine wo/w con IMPRESSION: Discitis osteomyelitis seen centered at the L5-S1 level with associated intradiscal abscess. Phlegmon is seen within the epidural space spanning the L4-S1 levels resulting in thecal sac compression centered at the L4-L5 level. No drainable epidural abscess is seen. No evidence of retroperitoneal abscess. Compared with 08/14/2020 the destructive endplate changes have progressed. The epidural phlegmon appears less extensive than on the prior exam
[2020-10-20] MEDS: traMADoL HCL 50 MG TABLET PO (13:49)
[2020-10-20 14:07] LABS: Basophils Absolute Auto 0.1 X10*3/uL (0.0-0.2); Basophils Percent Auto 0.8 % (0-2); Eosinophils Absolute Auto 0.4 X10*3/uL (0.0-0.4); Eosinophils Percent Auto 2.8 % (0-4); Hematocrit 33.3 % (37-47); Imm Gran Abs Auto 0.05 X10*3/uL (0.00-0.03); Imm Gran Pct Auto 0.3 % (0.0-0.4); Lymphocytes Absolute Auto 2.4 X10*3/uL (1.2-4.9); MANUAL DIFF FLAG NO; Mean Corpuscular Hemoglobin 28.4 pg (27.0-33.0); Mean Corpuscular Volume 85.8 fL (80-98); Mean Platelet Volume 11.4 fL (9.4-12.3); Monocytes Absolute Auto 1.2 X10*3/uL (0.1-1.2); Monocytes Percent Auto 7.8 % (2-11); Neutrophils Absolute Auto 10.8 X10*3/uL (2.0-8.3); Neutrophils Percent Auto 72.3 % (45-73); Platelet Count 320 X10*3/uL (160-400); Red Blood Count 3.88 X10*6/uL (4.20-5.50); White Blood Count 14.9 X10*3/uL (4.8-10.8)
--- NOTE | 2020-10-20 14:15 | ED_ITS ---
HPI - Back Pain/Injury General Chief Complaint: Back Pain/Injury Stated Complaint: SHARP LOW BACK PAIN SINCE JUNE Time Seen by Provider: 10/20/20 12:32 Source: EMS Mode of arrival: EMS History of Present Illness HPI Narrative: 65-year-old female with a past medical history of HTN, HLD, diabetes, AFib with RVR on Eliquis, CHF, diabetic foot ulcer/left foot osteomyelitis s/p left great toe amputation, L4-L5 diskitis/osteomyelitis s/p IV antibiotics now on p.o. Doxycycline, BIBA from home c/o acute on chronic low back pain unchanged. States doctors do not give her anything for her pain. Denies fever, chills, numbness, tingling, weakness, urinary incontinence/retention, fall/injury or trauma MD elicited complaint: back pain Related Data Home Medications Medication Instructions Recorded Confirmed Lantus Solostar U-100 Insulin 40 unit SUBCUT BEDTIME 06/20/20 10/15/20 duloxetine 60 mg PO DAILY 06/20/20 10/15/20 furosemide 40 mg PO DAILY 06/20/20 10/15/20 levothyroxine 75 mcg PO DAILY@0630 06/20/20 10/15/20 metformin 2,000 mg PO DAILY@1700 06/20/20 10/15/20 risperidone 0.25 mg PO BEDTIME 06/20/20 10/15/20 simvastatin 10 mg PO BEDTIME 06/20/20 10/15/20 acetaminophen 325 mg tablet 650 mg PO Q4H PRN 07/24/20 10/15/20 albuterol sulfate [ProAir HFA] 2 puff INHALATION Q4-6H PRN 08/14/20 10/15/20 cholecalciferol (vitamin D3) 25 mcg PO DAILY 08/14/20 10/15/20 cyanocobalamin (vitamin B-12) 500 mcg PO DAILY 08/14/20 10/15/20 lidocaine 1 patch TOPICAL DAILY 08/14/20 10/15/20 metoprolol tartrate 100 mg PO BID 08/14/20 10/15/20 pen needle, diabetic 31 gauge x #50 ea 09/12/20 10/15/2009/24 pantoprazole 40 mg tablet,delayed 40 mg PO DAILY 09/17/20 10/15/20 release trazodone 50 mg tablet 100 mg PO BEDTIME PRN 10/10/20 10/15/20 Previous Rx's Medication Instructions Recorded Eliquis 5 mg PO BID #60 tab 07/09/20 oxycodone 5 mg PO Q4H PRN #20 tab 08/19/20 polyethylene glycol 3350 [Miralax] 17 g PO DAILY #20 bottle 08/19/20 vancomycin HCl in water 500 mg IV Q12H 37 Days #74 vial 08/19/20 doxycycline hyclate 100 mg capsule 100 mg PO BID 30 Days #60 cap 10/07/20 losartan 25 mg tablet 25 mg PO DAILY #30 tab 10/11/20 diltiazem HCl 120 mg 120 mg PO DAILY #90 cap 10/18/20 capsule,extended release 24 hr Allergies Allergy/AdvReac Type Severity Reaction Status Date / Time chlorthalidone Allergy Unknown ACUTE Verified 10/20/20 12:19 [CHLORTHALIDONE] RENAL FAILURE levofloxacin [From LEVAQUIN] AdvReac Unknown NAUSEA & Verified 10/20/20 12:19 VOMITING Penicillins [PENICILLINS] AdvReac Unknown RASH Verified 10/20/20 12:19 Sulfa (Sulfonamide AdvReac Unknown RASH Verified 10/20/20 12:19 Antibiotics) [SULFA (SULFONAMIDE ANTIBIOTICS)] TAPE,PAPER Allergy Unknown UNKNOWN Uncoded 03/28/20 18:54 Review of Systems Review of Systems: Constitutional: No Fever, No Chills, No Fatigue, No Malaise Cardiovascular: No Chest Pain, No SOB Respiratory: No Cough, No Dyspnea Gastrointestinal: No Nausea, No Vomiting, No Diarrhea, No Constipation, No Abdominal pain Genitourinary: No Urinary Incontinence/retention Musculoskeletal: +back pain, No Myalgias, No Joint Swelling Skin: No Skin Lesions, No rash Neuro: No Weakness, No Numbness, No Paresthesias Yes all other systems are reviewed and are negative [facility] Past Medical History Attestation statement: The following information was validated with the patient. Medical History Atrial fibrillation Carcinoid tumor Depression Diabetic foot ulcers Hypertension Hypothyroidism Leukemoid reaction Macrocytic anemia Osteomyelitis of great toe of left foot PAF (paroxysmal atrial fibrillation) Syncope and collapse Type 2 diabetes mellitus Surgical History 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 Social History Social History Household Members: None Housing: Apartment Alcohol intake: unknown Smoking Status: Never smoker Second Hand Smoke Exposure: No Advance Directives: No Advance Directives Information Provided: Yes service: No Current occupational status: retired Physical Exam Vital Signs: Vital Signs: Last Vital Signs Temp 98.4 F 10/20/20 16:00 Pulse 110 H 10/20/20 16:00 Resp 15 10/20/20 16:00 BP 139/95 H 10/20/20 16:00 Pulse Ox 95 10/20/20 16:00 Body Mass Index 23.9 Const: General: cooperative, healthy appearing and no acute distress Orientation/consciousness: patient oriented x3 Limitations: no limitations HENMT: Head: Yes normal to inspection Ears: hearing grossly normal bilaterally General nose exam: Normal external nose present Face and sinus: Yes normal facial exam Eyes: General: appearance normal, both eyes and all related structures EOM: EOMs intact bilaterally Neck: Neck: Yes normal visual inspection Resp: Effort & Inspection: normal respiratory effort Cardio: Rate: regular rate GI: Inspection: Yes normal to inspection Palpation (GI): Soft to palpation, nontender, no guarding and not rigid : Other: Renee anal sensation intact to light touch. Rectal tone intact Back/Spine/Pelvis: Other: No midline thoracic/lumbar spinous tenderness, step- offs or deformity Skin: Rashes: no rashes Wounds: no wounds Neuro: Other: No saddle anesthesia General: patient oriented x3, tone normal and moves all extremities Motor exam (neuro): 5/5 motor strength present throughout Extrem: General: Yes normal to inspection Course Course Course Narrative: -leukocytosis of 14.9. H&H stable. ESR elevated to 30 [address] CT lumbar spine with contrast ordered to eval potential acute on chronic worsening osteo and or abscess. -1644-- low concern for severe sepsis. Labs otherwise unremarkable, CRP wnl XR chest 1V IMPRESSION: No acute pulmonary disease. Persistent enlargement of the left pulmonary artery suggesting underlying pulmonary arterial hypertension. -1700--ED care transferred to [facility] weeks pending CT and dispo per results MDM - Back Pain/Injury MDM Narrative Medical decision making narrative: 65-year-old female with a past medical history of HTN, HLD, diabetes, AFib with RVR on Eliquis, CHF, diabetic foot ulcer/left foot osteomyelitis s/p left great toe amputation, L4-L5 diskitis/osteomyelitis s/p IV antibiotics now on p.o. Doxycycline, BIBA from home c/o acute on chronic low back pain unchanged. On exam VSS, NAD/well- appearing, physical exam as above. No red flag symptoms, rectal tone intact. Perianal sensation intact. Concern for acute on chronic back pain vs worsening osteomyelitis. Low concern for cauda equina/fracture without deficits on exam Plan: Labs, symptomatic treatment, PT/case management Lab Data Result diagrams: 10/20/20 14:00 10/20/20 15:13 Labs: Lab Results 10/20/20 10/20/20 10/20/20 Range/Units 14:00 14:00 15:13 WBC 14.9 H (4.8-10.8) X10*3/uL RBC 3.88 L (4.20-5.50) X10*6/uL Hgb 11.0 L (12.0-16.0) g/dl Hct 33.3 L (37-47) % MCV 85.8 (80-98) fL MCH 28.4 (27.0-33.0) pg MCHC 33.0 (31.0-35.0) g/dl RDW 15.0 (11.0-16.0) % Plt Count 320 (160-400) X10*3/uL MPV 11.4 (9.4-12.3) fL Immature Gran % (Auto) 0.3 (0.0-0.4) % Neut % (Auto) 72.3 (45-73) % Lymph % (Auto) 16.0 L (20-40) % [place] % (Auto) 7.8 (2-11) % Eos % (Auto) 2.8 (0-4) % Baso % (Auto) 0.8 (0-2) % Lymph # (Auto) 2.4 (1.2-4.9) X10*3/uL [place] # (Auto) 1.2 (0.1-1.2) X10*3/uL Eos # (Auto) 0.4 (0.0-0.4) X10*3/uL Baso # (Auto) 0.1 (0.0-0.2) X10*3/uL Abs Immat Gran (auto) 0.05 H (0.00-0.03) X10*3/uL Absolute Neuts (auto) 10.8 H (2.0-8.3) X10*3/uL Absolute Nucleated RBC 0.000 (0.0-0.012) X10*3/uL Nucleated RBC % (auto) 0.0 (0.0-0.2) /100WBC ESR 30 H (0-20) MM/HR Sodium 140 (135-145) mmol/L Potassium 4.3 (3.3-5.1) mmol/L Chloride 102 (96-108) mmol/L Carbon Dioxide 27 (22-29) mmol/L Anion Gap 15 (12-20) BUN 21 H (9-16) mg/dL Creatinine 1.04 (0.5-1.4) mg/dL Estim Creat Clear Calc 51.0 Estimated GFR 53 Random Glucose 95 D (60-115) mg/dL Calcium 9.9 (8.4-10.2) mg/dL C-Reactive Protein 0.44 (< or = 0.50) mg/dL Discharge Plan Discharge Prescriptions: No Action diltiazem HCl [Cardizem CD] 120 mg capsule,extended release 24hr 120 mg PO DAILY Qty: 90 RF: 1 furosemide 40 mg tablet 40 mg PO DAILY RF: 0 simvastatin 10 mg tablet 10 mg PO BEDTIME RF: 0 levothyroxine 75 mcg tablet 75 mcg PO DAILY@0630 RF: 0 metformin 1,000 mg tablet 2,000 mg PO DAILY@1700 RF: 0 duloxetine 60 mg capsule,delayed release(DR/EC) 60 mg PO DAILY RF: 0 risperidone 0.25 mg Tablet 0.25 mg PO BEDTIME RF: 0 Lantus Solostar U-100 Insulin 100 unit/mL (3 mL) Insulin Pen 40 unit SUBCUT BEDTIME RF: 0 Eliquis 5 mg Tablet 5 mg PO BID Qty: 60 RF: 2 metoprolol tartrate 100 mg Tablet 100 mg PO BID RF: 0 lidocaine 5 % Adhesive Patch,Medicated 1 patch TOPICAL DAILY RF: 0 cholecalciferol (vitamin D3) 25 mcg (1,000 unit) Tablet 25 mcg PO DAILY RF: 0 albuterol sulfate [ProAir HFA] 90 mcg/actuation Hfa Aerosol Inhaler 2 puff INHALATION Q4-6H PRN (Reason: Shortness Of Breath) RF: 0 cyanocobalamin (vitamin B-12) 500 mcg Tablet 500 mcg PO DAILY RF: 0 oxycodone 5 mg Tablet 5 mg PO Q4H PRN (Reason: Pain, Moderate (Pain Scale 4-6) Qty: 20 RF: 0 vancomycin HCl in water 100 mg/mL solution 500 mg IV Q12H 37 Days Qty: 74 RF: 0 polyethylene glycol 3350 [Miralax] 17 gram/dose powder 17 g PO DAILY Qty: 20 RF: 0 (DME) pen needle, diabetic 31 gauge x 3/16 needle See Rx Instructions ea .ROUTE .MEDSUPPLY Qty: 50 RF: 0 pantoprazole 40 mg tablet,delayed release (DR/EC) 40 mg PO DAILY RF: 0 trazodone 50 mg tablet 100 mg PO BEDTIME PRNRF: 0 losartan 25 mg tablet 25 mg PO DAILY Qty: 30 RF: 5 acetaminophen 325 mg tablet 650 mg PO Q4H PRN (Reason: Pain (Scale Score 1-3)) RF: 0 doxycycline hyclate 100 mg capsule 100 mg PO BID 30 Days Qty: 60 RF: 1
[2020-10-20 14:58] LABS: Erythrocyte Sedimentation Rate 30 MM/HR (0-20)
--- NOTE | 2020-10-20 15:40 | MHC.CM.ED ---
Received consult for assessment of d/c needs: Pt presents to ED with worsening back pain in the setting of prior osteomyelitis. (She is s/p amputation of foot r/t osteo as well). Pain is limiting her functional abilities at home. Met with pt who states she is 2 weeks post d/c from [facility] with home services from [place] including RN and skilled PT visits. Pt uses a walker and her sister (HCP) Marcia assists with transportation and any other needs pt may have. Pt receptive to STR referrals to [facility] followed by [facility] should PT deem this necessary. Lab values returned indicating an elevated WBC. ? pt needing further work up or possible admission for recurrent / chronic osteo. Referrals placed to pt's STR choices; PT eval pending for 10/21. Pt and ED care team aware of plan. CM to follow
[2020-10-20 15:46] LABS: Anion Gap 15 (12-20); Blood Urea Nitrogen 21 mg/dL (9-16); C Reactive Protein 0.44 mg/dL (< or = 0.50); Calcium 9.9 mg/dL (8.4-10.2); Carbon Dioxide 27 mmol/L (22-29); Chloride 102 mmol/L (96-108); Estimated Glomerular Filt Rate 53; Glucose Random 95 mg/dL (60-115); Potassium 4.3 mmol/L (3.3-5.1); Sodium 140 mmol/L (135-145)
[2020-10-20] MEDS: iohexoL 350 MG/ML 100 ML INFUS..BTL IV (17:10)
--- NOTE | 2020-10-20 17:14 | ED_ITS ---
HPI - General Adult General Chief complaint: Back Pain/Injury Stated complaint: SHARP LOW BACK PAIN SINCE JUNE Time Seen by Provider: 10/20/20 12:32 Source: EMS Mode of arrival: EMS Related Data Home Medications Medication Instructions Recorded Confirmed apixaban [Eliquis] 1 tab PO BID 10/20/20 10/20/20 diltiazem HCl 1 cap PO DAILY 10/20/20 10/20/20 diltiazem HCl [Cartia XT] 1 cap PO DAILY 10/20/20 10/20/20 doxycycline hyclate 1 cap PO BID 10/20/20 10/20/20 furosemide 1 tab PO DAILY 10/20/20 10/20/20 levothyroxine 1 tab PO DAILY 10/20/20 10/20/20 losartan 1 tab PO DAILY 10/20/20 10/20/20 metoprolol tartrate 1 tab PO BID 10/20/20 10/20/20 oxycodone 1 tab PO DAILY PRN 10/20/20 10/20/20 risperidone 1 cap PO BEDTIME 10/20/20 10/20/20 simvastatin 1 tab PO BEDTIME 10/20/20 10/20/20 trazodone 1 - 2 tab PO BEDTIME PRN 10/20/20 10/20/20 Allergies Allergy/AdvReac Type Severity Reaction Status Date / Time chlorthalidone Allergy Unknown ACUTE Verified 10/20/20 12:19 [CHLORTHALIDONE] RENAL FAILURE levofloxacin [From LEVAQUIN] AdvReac Unknown NAUSEA & Verified 10/20/20 12:19 VOMITING Penicillins [PENICILLINS] AdvReac Unknown RASH Verified 10/20/20 12:19 Sulfa (Sulfonamide AdvReac Unknown RASH Verified 10/20/20 12:19 Antibiotics) [SULFA (SULFONAMIDE ANTIBIOTICS)] TAPE,PAPER Allergy Unknown UNKNOWN Uncoded 03/28/20 18:54 [facility] Past Medical History Medical History (Updated 10/20/20 @ 21:30 by Maikel Ashford MD) Atrial fibrillation Carcinoid tumor Depression Diabetic foot ulcers Hypertension Hypothyroidism Leukemoid reaction Macrocytic anemia Osteomyelitis of great toe of left foot PAF (paroxysmal atrial fibrillation) Syncope and collapse Type 2 diabetes mellitus Surgical History (Updated 10/20/20 @ 21:02 by Maikel Ashford MD) 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 Social History Social History Household Members: None Housing: Apartment Alcohol intake: unknown Smoking Status: Former smoker Second Hand Smoke Exposure: No Use of substances other than those prescribed or required for medical reasons: No Advance Directives: No Advance Directives Information Provided: Yes service: No Current occupational status: retired Physical Exam Vital Signs: Vital Signs: Last Vital Signs Temp 97.8 F 10/20/20 21:53 Pulse 68 10/20/20 21:53 Resp 16 10/20/20 21:53 BP 102/54 L 10/20/20 21:53 Pulse Ox 99 10/20/20 21:53 Body Mass Index 23.9 Course Course Course Narrative: 5:00 p.m. report from [facility], CT lumbar, urinalysis pending. Please refer to her note for full H&P. 5:10 p.m. discussion with RN regarding urinalysis. Order for straight cath. CT indicates changes to L4-L5, MRI ordered. tiger text discussion with Dr. Westfall, 6:[address] scan was reviewed, ID feels that changes are consistent with known osteo myelitis and increased space is consistent with antibiotic use. ID does not want any further antibiotics, would only like to continue the p.o. doxycycline that she is currently on. Request an IR consult for disc biopsy and culture. 8:00 p.m. discussion with hospitalist, plan of care is to admit for disc osteomyelitis and lower lumbar pain. Correspondence with ID discussed with hospitalist. Medical Decision Making Lab Data Result diagrams: 10/20/20 14:00 10/20/20 15:13 Labs: Lab Results 10/20/20 10/20/20 10/20/20 Range/Units 14:00 14:00 15:13 WBC 14.9 H (4.8-10.8) X10*3/uL RBC 3.88 L (4.20-5.50) X10*6/uL Hgb 11.0 L (12.0-16.0) g/dl Hct 33.3 L (37-47) % MCV 85.8 (80-98) fL MCH 28.4 (27.0-33.0) pg MCHC 33.0 (31.0-35.0) g/dl RDW 15.0 (11.0-16.0) % Plt Count 320 (160-400) X10*3/uL MPV 11.4 (9.4-12.3) fL Immature Gran % (Auto) 0.3 (0.0-0.4) % Neut % (Auto) 72.3 (45-73) % Lymph % (Auto) 16.0 L (20-40) % [place] % (Auto) 7.8 (2-11) % Eos % (Auto) 2.8 (0-4) % Baso % (Auto) 0.8 (0-2) % Lymph # (Auto) 2.4 (1.2-4.9) X10*3/uL [place] # (Auto) 1.2 (0.1-1.2) X10*3/uL Eos # (Auto) 0.4 (0.0-0.4) X10*3/uL Baso # (Auto) 0.1 (0.0-0.2) X10*3/uL Abs Immat Gran (auto) 0.05 H (0.00-0.03) X10*3/uL Absolute Neuts (auto) 10.8 H (2.0-8.3) X10*3/uL Absolute Nucleated RBC 0.000 (0.0-0.012) X10*3/uL Nucleated RBC % (auto) 0.0 (0.0-0.2) /100WBC ESR 30 H (0-20) MM/HR Sodium 140 (135-145) mmol/L Potassium 4.3 (3.3-5.1) mmol/L Chloride 102 (96-108) mmol/L Carbon Dioxide 27 (22-29) mmol/L Anion Gap 15 (12-20) BUN 21 H (9-16) mg/dL Creatinine 1.04 (0.5-1.4) mg/dL Estim Creat Clear Calc 51.0 Estimated GFR 53 Random Glucose 95 D (60-115) mg/dL Calcium 9.9 (8.4-10.2) mg/dL C-Reactive Protein 0.44 (< or = 0.50) mg/dL Urine Color Urine Appearance Urine pH (5.0-8.0) Ur Specific [place] (1.005-1.025) Urine Protein (NEG-TRACE) MG/DL Urine Glucose (UA) (NEG) MG/DL Urine Ketones (NEG) MG/DL Urine Blood (NEG) Urine Nitrite (NEG) Ur Leukocyte Esterase (NEG) COVID-19 (EDWAR) (Negative) COVID-19 Clin Com 10/20/20 10/20/20 Range/Units 17:25 21:02 WBC (4.8-10.8) X10*3/uL RBC (4.20-5.50) X10*6/uL Hgb (12.0-16.0) g/dl Hct (37-47) % MCV (80-98) fL MCH (27.0-33.0) pg MCHC (31.0-35.0) g/dl RDW (11.0-16.0) % Plt Count (160-400) X10*3/uL MPV (9.4-12.3) fL Immature Gran % (Auto) (0.0-0.4) % Neut % (Auto) (45-73) % Lymph % (Auto) (20-40) % [place] % (Auto) (2-11) % Eos % (Auto) (0-4) % Baso % (Auto) (0-2) % Lymph # (Auto) (1.2-4.9) X10*3/uL [place] # (Auto) (0.1-1.2) X10*3/uL Eos # (Auto) (0.0-0.4) X10*3/uL Baso # (Auto) (0.0-0.2) X10*3/uL Abs Immat Gran (auto) (0.00-0.03) X10*3/uL Absolute Neuts (auto) (2.0-8.3) X10*3/uL Absolute Nucleated RBC (0.0-0.012) X10*3/uL Nucleated RBC % (auto) (0.0-0.2) /100WBC ESR (0-20) MM/HR Sodium (135-145) mmol/L Potassium (3.3-5.1) mmol/L Chloride (96-108) mmol/L Carbon Dioxide (22-29) mmol/L Anion Gap (12-20) BUN (9-16) mg/dL Creatinine (0.5-1.4) mg/dL Estim Creat Clear Calc Estimated GFR Random Glucose (60-115) mg/dL Calcium (8.4-10.2) mg/dL C-Reactive Protein (< or = 0.50) mg/dL Urine Color STRAW Urine Appearance CLEAR Urine pH 6.0 (5.0-8.0) Ur Specific [place] 1.010 (1.005-1.025) Urine Protein NEG (NEG-TRACE) MG/DL Urine Glucose (UA) NEG (NEG) MG/DL Urine Ketones NEG (NEG) MG/DL Urine Blood NEG (NEG) Urine Nitrite NEG (NEG) Ur Leukocyte Esterase NEG (NEG) COVID-19 (EDWAR) Negative (Negative) COVID-19 Clin Com See Note Imaging Data Lumbar CT: Attestation: I personally reviewed and interpreted this imaging study as follows: Radiologist's impression: EXAMINATION: CT LUMBAR SPINE WITH CONTRAST CLINICAL INFORMATION: Evaluate worsening osteophyte versus abscess. COMPARISON: CT scan lumbosacral spine August 2020 and MRI of the lumbosacral spine August 2020. TECHNIQUE: CT scan of lumbosacral spine was performed with 85 mL of Omnipaque 300 contrast given intravenously. This CT examination was performed using dose optimization techniques as appropriate, variously including the following: *Automated exposure control. *Adjustment of mA and/or kV according to patient size (this includes techniques or standardized protocols for targeted exams where dose is matched to indication/reason for exam; i.e. extremities or head). *Use of iterative reconstruction technique. DLP: 430 mGy-cm FINDINGS: Transitional vertebral anatomy with partial lumbarization of S1. There is fusion of the right transverse process of S1 with the sacrum and non-fusion of the left transverse process with sacral ala. Rudimentary S1-S2 in the prevertebral disc as before. Stable grade 1 anterolisthesis of L5 on S1. Otherwise, alignment intact. Slight compression of the superior endplate of L1, unchanged L4-L5: Again noted is destructive changes along the disc space with irregularity of the endplates. There is gas present within the disc space not seen previously. The abnormal disc space appears to be slightly more narrowed compared to prior perhaps related to progressive destructive changes of the disc. Endplate sclerosis also noted likely reactive to inflammatory process. No new bony abnormality. Again noted is poor visualization of the epidural fat from L3-L4 through the inferior endplate of L5 which could reflect persistent phlegmon within the epidural space more clearly depicted on MRI. There is persistent prevertebral heterogeneous abnormal soft tissue density slightly less prominent compared to prior likely reflecting persistent inflammatory change but without a discrete abscess. Persistent degenerative changes throughout the remaining lumbosacral spine, unchanged compared to prior, with degenerative disc changes present at L1-L2 and L2-L3 and multilevel facet arthrosis at L4-L5 and L5-S1. CT/CT lumbar spine w con IMPRESSION: 1. Findings consistent with discitis osteomyelitis at the L4-L5 level, similar when compared to prior. Of note, the disc space is narrowed compared to prior likely reflecting evolving disc destruction related to the infectious process. There is persistent albeit slight decreased inflammatory change in the surrounding soft tissues outside of the disc space. I do not see a new or developing abscess. 2. Possible persistent inflammatory change in the epidural space but no localized abscess. This is more clearly seen on the prior MRI. 3. No new areas of bone destruction. MRI lumbar: Attestation: I personally reviewed and interpreted this imaging study as follows: Critical Care Time Critical Care Time Critical Care Time: Yes Total Critical Care Time: 45 Attestation: I have personally provided critical care time exclusive of time spent on separately billable procedures. Time includes review of laboratory data, radiology results, discussion with consultants, and monitoring for potential decompensation. Interventions were performed as documented. Discharge Plan Discharge Clinical Impression: Discitis of lumbosacral region, Lumbar back pain Patient Disposition: Admitted As Inpatient
[2020-10-20 17:34] LABS: Glucose Urine UA NEG (NEG); Leukocyte Esterase Urine NEG (NEG); Nitrite Urine NEG (NEG); Urine Blood NEG (NEG); Urine Ketones NEG (NEG); Urine Protein NEG (NEG-TRACE)
[2020-10-20 17:40] LABS: Appearance Urine CLEAR; Color Urine STRAW
[2020-10-20] MEDS: LORazepam 2 MG/ML VIAL 0.5 MG IVPUSH (18:06)
--- NOTE | 2020-10-20 18:09 | PC.NURSE ---
pt to mri now.
--- NOTE | 2020-10-20 19:49 | PC.NURSE ---
patient came back from mri ,patient having a turkey sandwich and cranberry juice ,patient stated she is a bit short of breath ,her 02 sat is 98 % ,Rn mulugeta aware .
[2020-10-20] MEDS: ondansetron HCL 4 MG/2 ML VIAL IVPUSH (20:14)
[2020-10-20] MEDS: Morphine Sulfate 2 MG/ML CARTRIDGE IVPUSH (20:15)
[2020-10-20] MEDS: oxyCODONE HCl Immed Release 5 MG TABLET PO (20:15)
--- NOTE | 2020-10-20 20:30 | PC.NURSE ---
pt cleaned up, repositioned and placed on periwick due to pain with mobility.
--- NOTE | 2020-10-20 21:00 | P.HPHOSP_ITS ---
History of Present Illness Date of Service: 10/20/20 Chief Complaint: Lower Back Pain 65-year-old female with a past medical history of HTN, HLD, diabetes, AFib with RVR on Eliquis, CHF. She was admitted on June 20 to at that time had diabetic foot/osteomylitis and underwent left first metatarsal ampuation and also was treated with Ceftriaxone for 4 weeks for Strep indermedius during that same admission. She was readmitted on August 14, 2020 and discharge Febrarly 8 with L4-L5 diskitis/osteomyelitis and was treated with IV Vanco for 6 weeks ending 09/24/20 and subsequently put on PO doxycyline. She presents today with increasing back pain wprst wotj walking but no other neurological changes such as weakness, numbness inleg, no loss of bowel or bladder function. CT lumbar spine shows indings consistent with discitis osteomyelitis at the L4- L5 level,similar when compared to prior from August 14. MRI is done result pending. She has no fever. covid 19 Review of Systems Review of Systems: Yes all other systems are reviewed and are negative Constitutional: Constitutional: Denies fever(s) and Denies frequent falls Cardiovascular: Cardiovascular: Denies chest pain Respiratory: Respiratory: Denies no additional respiratory complaints Musculoskeletal: Musculoskeletal: Reports back pain and Denies numbness Neurologic: Denies frequent falls, Denies focal weakness, Denies numbness and Denies paresthesias [facility] Medical History Atrial fibrillation Carcinoid tumor Depression Diabetic foot ulcers Hypertension Hypothyroidism Leukemoid reaction Macrocytic anemia Osteomyelitis of great toe of left foot PAF (paroxysmal atrial fibrillation) Syncope and collapse Type 2 diabetes mellitus Surgical History 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 Social History Household Members: None Housing: Apartment Alcohol intake: unknown Smoking Status: Former smoker Second Hand Smoke Exposure: No service: No Current occupational status: retired Meds Allergies Allergy/AdvReac Type Severity Reaction Status Date / Time chlorthalidone Allergy Unknown ACUTE Verified 10/20/20 12:19 [CHLORTHALIDONE] RENAL FAILURE levofloxacin [From LEVAQUIN] AdvReac Unknown NAUSEA & Verified 10/20/20 12:19 VOMITING Penicillins [PENICILLINS] AdvReac Unknown RASH Verified 10/20/20 12:19 Sulfa (Sulfonamide AdvReac Unknown RASH Verified 10/20/20 12:19 Antibiotics) [SULFA (SULFONAMIDE ANTIBIOTICS)] TAPE,PAPER Allergy Unknown UNKNOWN Uncoded 03/28/20 18:54 Home Medications Medication Instructions Recorded Confirmed Last Taken Type Eliquis 1 tab PO BID 10/20/20 11/06/20 Unknown History diltiazem HCl 1 cap PO DAILY 10/20/20 11/06/20 Unknown History furosemide 1 tab PO DAILY 10/20/20 11/06/20 Unknown History levothyroxine 1 tab PO DAILY 10/20/20 11/06/20 Unknown History losartan 1 tab PO DAILY 10/20/20 11/06/20 Unknown History metoprolol tartrate 1 tab PO BID 10/20/20 11/06/20 Unknown History risperidone 1 cap PO BEDTIME 10/20/20 11/06/20 Unknown History simvastatin 1 tab PO BEDTIME 10/20/20 11/06/20 Unknown History trazodone 1 - 2 tab PO BEDTIME PRN 10/20/20 11/06/20 Unknown History metformin 2 tab PO QPM 10/21/20 11/06/20 Unknown History Physical Exam Vital Signs and Narrative: Vital Signs: Last Vital Signs Temp 97.8 F 10/20/20 19:44 Pulse 102 H 10/20/20 20:17 Resp 16 10/20/20 20:17 BP 116/56 L 10/20/20 20:17 Pulse Ox 97 10/20/20 20:17 BMP 23.9 Const: General: cooperative and comfortable Orientation/consciousness: patient oriented x3 HENMT: Head: Yes normocephalic Ears: hearing grossly normal bilaterally Eyes: General: appearance normal, both eyes and all related structures Neck: Yes full ROM and Yes no lymphadenopathy Chest: Chest palpation & inspection: normal inspection of the chest Resp: Effort & Inspection: normal respiratory effort and able to speak in complete sentences Auscultation: clear to auscultation bilaterally Cardio: Jugular venous distension: no JVD Heart sounds: S1 normal heart sound present and S2 normal heart sound present GI: Inspection: Yes normal to inspection Auscultation: normal bowel sounds : General: Yes no CVA tenderness Back/Spine/Pelvis: Back: no CVA tenderness Skin: Rashes: no rashes Neuro: Other: normal strenght in both legs, no loss of sensaton, no General: patient oriented x3, gait normal and moves all extremities Cranial nerves: Yes CN's II-XII intact bilaterally and Yes Ability to bilaterally elevate shoulders present Results Labs CBC and Chem 7: 10/23/20 04:20 10/23/20 04:20 Labs: ESR 30 CRP 0.44 Imaging Radiologist's Impressions: Impressions Lumbar Spine CT 10/20/20 15:17 IMPRESSION: 1. Findings consistent with discitis osteomyelitis at the L4-L5 level, similar when compared to prior. Of note, the disc space is narrowed compared to prior likely reflecting evolving disc destruction related to the infectious process. There is persistent albeit slight decreased inflammatory change in the surrounding soft tissues outside of the disc space. I do not see a new or developing abscess. 2. Possible persistent inflammatory change in the epidural space but no localized abscess. This is more clearly seen on the prior MRI. 3. No new areas of bone destruction. Chest X-Ray 10/20/20 15:19 IMPRESSION: No acute pulmonary disease. Persistent enlargement of the left pulmonary artery suggesting underlying pulmonary arterial hypertension. Assessment and Plan (1) Discitis of lumbosacral region: Status: Acute (2) Type 2 diabetes mellitus: (3) Hypothyroidism: Status: Inactive (4) Hypertension: (5) Atrial fibrillation: (6) Lumbar back pain: Status: Acute 65/F with AF on Eliquis, hypothyroidism, HLD, CHF and history of recurent lumbar spine diskitis for which she just completed 6 weeks of IV Vanco and is now on PO Doxycycline, she is here with worsening back pain and MRI and CT shows pesistent diskiitis but no drainable collection. 1. Disckitis/osteomyltiso of Spine, No neuro symptoms, no driabable collection -IV Vanco -ID consult -IR consult for possible biopsy -IV Morphine for pain 2. AFIB--rate controlled, on diltiazem, Metoprolol -hold Eliquis for Bx 3. HTN--controlled, continue Metoprolol, Ditiazem, Losartan 4. Hypothyroidism--Levothyroxine 5. HLD--Lipitor in place of Simvastatin DVT Prophylaxis: Eliquis.
[2020-10-20 21:29] LABS: IDNOW Serial# 9DD0AD1C
[2020-10-20 21:30] LABS: COVID-19 Test Negative (Negative)
[2020-10-20] MEDS: vancomycin HCL 750 MG in 0.9 % Sodium Chloride 250 ML 265 MG IV (22:55)
[2020-10-21] VITALS (11 sets, daily range): BP systolic 110–173; BP diastolic 63–92; PULSE 69–99; RESP 18–20; TEMP 36.1–37.1; O2SAT 93–98
[2020-10-21] MEDS: Morphine Sulfate 2 MG/ML CARTRIDGE IVPUSH ×3 (02:03→21:16)
[2020-10-21 08:02] LABS: Glucose, Whole Blood 104 mg/dL (60-115)
[2020-10-21] MEDS: Furosemide 40 MG TABLET PO (08:32)
[2020-10-21] MEDS: Losartan Potassium 25 MG TABLET PO (08:33)
[2020-10-21] MEDS: 0.9 % Sodium Chloride Flush 3 ML SYRINGE IVFLUSH ×4 (08:33→23:47)
[2020-10-21] MEDS: Levothyroxine Sodium 75 MCG TABLET PO (08:33)
[2020-10-21] MEDS: dilTIAZem HCL 60 MG TABLET 120 MG PO (08:33)
[2020-10-21] MEDS: Metoprolol Tartrate 100 MG TABLET PO ×2 (08:33→21:16)
[2020-10-21] MEDS: oxyCODONE HCl Immed Release 5 MG TABLET PO (10:18)
[2020-10-21] MEDS: vancomycin HCL 750 MG in 0.9 % Sodium Chloride 250 ML 265 MG IV (10:22)
--- NOTE | 2020-10-21 10:40 | P.PNIM_ITS ---
Subjective Subjective Date of Service: 10/21/20 Interval History: Follow up discitis. Still with lumbar back pain. No other neurological signs. Physical Exam Vital Signs: Vital Signs: Last Vital Signs Temp 97.8 F 10/21/20 08:00 Pulse 97 10/21/20 09:15 Resp 20 10/21/20 08:00 BP 133/75 10/21/20 09:15 Pulse Ox 98 10/21/20 08:00 Body Mass Index 23.9 Appearing in no acute distress lung sounds are clear to auscultation heart regular rate rhythm, clear S1, S2 positive bowel sounds, abdomen is soft, nontender neuro patient is alert x3, no focal deficit Objective Data Current Medications Generic Name Dose Route Start Last Admin Trade Name Freq PRN Reason Stop Dose Admin Atorvastatin Calcium 10 mg 10/21/20 21:00 Atorvastatin Calcium 10 Mg Tablet PO BEDTIME PAPO Diltiazem HCl 120 mg 10/21/20 09:00 10/21/20 08:33 Diltiazem Hcl 60 Mg Tablet PO 120 mg DAILY PAPO Administration Protocol Doxycycline Hyclate 100 mg 10/21/20 09:00 10/21/20 08:34 Doxycycline Hyclate 100 Mg Tablet PO 100 mg BID PAPO Administration Furosemide 40 mg 10/21/20 09:00 10/21/20 08:32 Furosemide 40 Mg Tablet PO 40 mg DAILY PAPO Administration Protocol Insulin Human Lispro 0 unit 10/21/20 07:30 10/21/20 08:32 Insulin Lispro 100 Unit/Ml 3 Ml Vial SUBCUT Not Given QIDACHS [facility] Protocol Levothyroxine Sodium 75 mcg 10/21/20 09:00 10/21/20 08:33 Levothyroxine Sodium 75 Mcg Tablet PO 75 mcg DAILY PAPO Administration Losartan Potassium 25 mg 10/21/20 09:00 10/21/20 08:33 Losartan Potassium 25 Mg Tablet PO 25 mg DAILY PAPO Administration Protocol Metoprolol Tartrate 100 mg 10/21/20 09:00 10/21/20 08:33 Metoprolol Tartrate 100 Mg Tablet PO 100 mg BID PAPO Administration Protocol Morphine Sulfate 2 mg 10/20/20 22:01 10/21/20 02:03 Morphine Sulfate 2 Mg/Ml Cartridge IVPUSH 2 mg Q4H PRN Administration Pain, Severe (Pain Scale 7-10) Oxycodone HCl 5 mg 10/20/20 22:01 10/21/20 10:18 Oxycodone Hcl Immed Release 5 Mg Tablet PO 5 mg DAILY PRN Administration severe pain Pharmacy Consult 1 each 10/20/20 21:47 Consult Rx Vancomycin Dosing MISCELLANE DAILY PRN Consult order Risperidone 0.25 mg 10/21/20 21:00 Risperidone 0.25 Mg Tablet PO BEDTIME PAPO Sodium Chloride 3 ml 10/21/20 00:00 10/21/20 08:33 0.9 % Sodium Chloride Flush 3 Ml Syringe IVFLUSH 3 ml QSHIFT PAPO Administration Trazodone HCl 50 - 100 mg 10/20/20 22:01 Trazodone Hcl 50 Mg Tablet PO BEDTIME PRN insomnia Labs CBC & Chem 7: 10/20/20 14:00 10/20/20 15:13 Assessment and Plan (1) Discitis of lumbosacral region: Status: Acute (2) Type 2 diabetes mellitus: Status: Acute (3) Hypothyroidism: Status: Inactive (4) Hypertension: Status: Acute (5) Atrial fibrillation: Status: Acute (6) Lumbar back pain: Problem details: She has back pain and unremarkable ESR. I dont want to empirically treat with a third course of IV antibiotics unless there is culture data from disk space as she has had two courses already without improvement Possibly this could be noninfectious cause?AFB, ?malignancy Status: Acute Assessment and Plan: 65 year old women with AF on Eliquis, hypothyroidism, HLD, CHF and history of recurrent lumbar spine discitis for which she just completed 6 weeks of IV Vanco and is now on PO Doxycycline, she is here with worsening back pain and MRI and CT shows persistent diskiitis but no drainable collection. Discitis/osteomyelitis of Spine, No neuro symptoms, no drainable collection -Stop antibiotics -IR for disc aspiration, NPO after midnight -ID consult -pain management AFIB. rate controlled, on diltiazem, Metoprolol -hold Eliquis for possible IR procedure HTN -controlled, continue Metoprolol, Ditiazem, Losartan Hypothyroidism -continue Levothyroxine Hyperlipidemia -continue Lipitor Dispo. Continue medical evaluation Attending: Dr. Ricci
--- NOTE | 2020-10-21 11:10 | MHC.CM.PN ---
PT is recommending [facility] and [facility] and [facility] are following. Patient is requiring IV Morphine for pain management. CM will follow for dc planning.
[2020-10-21 11:21] LABS: Glucose, Whole Blood 117 mg/dL (60-115)
[2020-10-21 11:56] LABS: Glucose, Whole Blood 135 mg/dL (60-115)
--- NOTE | 2020-10-21 14:28 | W.PM.IDCN ---
History of Present Illness Data of Consult Service Date: 10/21/20 Requesting physician: Thomas Ricci Primary Care Provider: Jessie Sorensen MD [facility] Reason for consult: back pain ?infection She presents from home with worsening back pain for two weeks. I had seen her many times since June. She has had left great toe osteomyelitis and strep mitis bacteremia and received 6 weeks IV antibiotics,PICC inserted on 07/08/20. She came back in August and had back pain and MRI 08/14 showed presumed osteomyelitis L4-L5. She had no abscess in back to drain and no specific leg weakness She had another PICC line inserted on 08/19/20 and was given Vancomycin for six weeks. 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 Social History Social History Household Members: None Housing: Apartment Do you presently have visiting nurse or other home services: Yes (Patient receives PT and visiting nurses from [facility]) Alcohol intake: unknown Smoking Status: Former smoker Smoked in Last 30 Days: No Patient Interested in Nicotine Replacement: No Patient Given Instructions on How to Stop Smoking: No Second Hand Smoke Exposure: No Use of substances other than those prescribed or required for medical reasons: No Currently Displaying Signs/Symptoms of Drug Intoxication Withdrawal: No Any prior treatment program specific to substance use: No Have you been hit, kicked, punched, or otherwise hurt by someone within the past year? If so, by whom?: No Do you feel safe in your current relationship?: No Is there a partner from a previous relationship who is making you feel unsafe now?: No Are you made to feel afraid or neglected: No Advance Directives: No Advance Directives Information Provided: Yes Do you have thoughts of harming others: None Do you have a plan to hurt others: No Plan Recently lost weight without trying: Yes service: No Current occupational status: retired Meds Allergies Allergy/AdvReac Type Severity Reaction Status Date / Time chlorthalidone Allergy Unknown ACUTE Verified 10/20/20 12:19 [CHLORTHALIDONE] RENAL FAILURE levofloxacin [From LEVAQUIN] AdvReac Unknown NAUSEA & Verified 10/20/20 12:19 VOMITING Penicillins [PENICILLINS] AdvReac Unknown RASH Verified 10/20/20 12:19 Sulfa (Sulfonamide AdvReac Unknown RASH Verified 10/20/20 12:19 Antibiotics) [SULFA (SULFONAMIDE ANTIBIOTICS)] TAPE,PAPER Allergy Unknown UNKNOWN Uncoded 03/28/20 18:54 Active Medications: Current Medications Generic Name Dose Route Start Last Admin Trade Name Freq PRN Reason Stop Dose Admin Atorvastatin Calcium 10 mg 10/21/20 21:00 Atorvastatin Calcium 10 Mg Tablet PO BEDTIME PAPO Diltiazem HCl 120 mg 10/21/20 09:00 10/21/20 08:33 Diltiazem Hcl 60 Mg Tablet PO 120 mg DAILY PAPO Administration Protocol Furosemide 40 mg 10/21/20 09:00 10/21/20 08:32 Furosemide 40 Mg Tablet PO 40 mg DAILY PAPO Administration Protocol Insulin Human Lispro 0 unit 10/21/20 07:30 10/21/20 12:06 Insulin Lispro 100 Unit/Ml 3 Ml Vial SUBCUT Not Given QIDACHS [facility] Protocol Levothyroxine Sodium 75 mcg 10/21/20 09:00 10/21/20 08:33 Levothyroxine Sodium 75 Mcg Tablet PO 75 mcg DAILY PAPO Administration Losartan Potassium 25 mg 10/21/20 09:00 10/21/20 08:33 Losartan Potassium 25 Mg Tablet PO 25 mg DAILY PAPO Administration Protocol Metoprolol Tartrate 100 mg 10/21/20 09:00 10/21/20 08:33 Metoprolol Tartrate 100 Mg Tablet PO 100 mg BID PAPO Administration Protocol Morphine Sulfate 2 mg 10/20/20 22:01 10/21/20 13:54 Morphine Sulfate 2 Mg/Ml Cartridge IVPUSH 2 mg Q4H PRN Administration Pain, Severe (Pain Scale 7-10) Oxycodone HCl 5 mg 10/20/20 22:01 10/21/20 10:18 Oxycodone Hcl Immed Release 5 Mg Tablet PO 5 mg DAILY PRN Administration severe pain Pharmacy Consult 1 each 10/20/20 21:47 Consult Rx Vancomycin Dosing MISCELLANE DAILY PRN Consult order Risperidone 0.25 mg 10/21/20 21:00 Risperidone 0.25 Mg Tablet PO BEDTIME PAPO Sodium Chloride 3 ml 10/21/20 00:00 10/21/20 08:33 0.9 % Sodium Chloride Flush 3 Ml Syringe IVFLUSH 3 ml QSHIFT [facility] Administration Trazodone HCl 50 - 100 mg 10/20/20 22:01 Trazodone Hcl 50 Mg Tablet PO BEDTIME PRN insomnia Home Medications Medication Instructions Recorded Confirmed Last Taken Type apixaban [Eliquis] 1 tab PO BID 10/20/20 10/20/20 Unknown History diltiazem HCl 1 cap PO DAILY 10/20/20 10/20/20 Unknown History diltiazem HCl [Cartia XT] 1 cap PO DAILY 10/20/20 10/20/20 Unknown History doxycycline hyclate 1 cap PO BID 10/20/20 10/20/20 Unknown History furosemide 1 tab PO DAILY 10/20/20 10/20/20 Unknown History levothyroxine 1 tab PO DAILY 10/20/20 10/20/20 Unknown History losartan 1 tab PO DAILY 10/20/20 10/20/20 Unknown History metoprolol tartrate 1 tab PO BID 10/20/20 10/20/20 Unknown History oxycodone 1 tab PO DAILY PRN 10/20/20 10/20/20 Unknown History risperidone 1 cap PO BEDTIME 10/20/20 10/20/20 Unknown History simvastatin 1 tab PO BEDTIME 10/20/20 10/20/20 Unknown History trazodone 1 - 2 tab PO BEDTIME PRN 10/20/20 10/20/20 Unknown History metformin 2 tab PO QPM 10/21/20 10/21/20 Unknown History Physical Exam Vital Signs: Vital Signs: Last Vital Signs Temp 97.4 F 10/21/20 12:00 Pulse 69 10/21/20 12:00 Resp 18 10/21/20 12:00 BP 146/66 H 10/21/20 12:00 Pulse Ox 93 10/21/20 12:00 Body Mass Index 23.9 Const: General: cooperative Orientation/consciousness: patient oriented x3 HENMT: Head: Yes normal to inspection Mouth: Normal oral and palatal mucosa present Resp: Effort & Inspection: normal respiratory effort Cardio: Rate: regular rate Rhythm: regular rhythm GI: Palpation (GI): Soft to palpation and nontender Skin: General skin exam: no rashes or lesions noted Neuro: Other: moves extremities well General: patient oriented x3 Results Labs CBC & Chem 7: 10/20/20 14:00 10/20/20 15:13 Labs: BMP 10/20/20 15:13 Sodium 140 Potassium 4.3 Chloride 102 Carbon Dioxide 27 BUN 21 H Creatinine 1.04 Calcium 9.9 Urine 10/20/20 Range/Units 17:25 Urine Color STRAW Urine Appearance CLEAR Urine pH 6.0 (5.0-8.0) Ur Specific Regan 1.010 (1.005-1.025) Urine Protein NEG (NEG-TRACE) MG/DL Urine Glucose (UA) NEG (NEG) MG/DL Assessment and Plan (1) Lumbar back pain: Problem details: She has back pain and unremarkable ESR. I dont want to empirically treat with a third course of IV antibiotics unless there is culture data from disk space as she has had two courses already without improvement Possibly this could be noninfectious cause?AFB, ?malignancy Status: Acute Check Tspot Hold antibiotics Would check culture gram stain,AFB,fungus ,cytology per IR from interdisc area.
[2020-10-21 20:27] LABS: Glucose, Whole Blood 136 mg/dL (60-115)
[2020-10-21] MEDS: Atorvastatin Calcium 10 MG TABLET PO (21:17)
[2020-10-21] MEDS: risperiDONE 0.25 MG TABLET PO (21:17)
[2020-10-22] VITALS (12 sets, daily range): BP systolic 92–131; BP diastolic 61–80; PULSE 49–92; RESP 16–18; TEMP 36.1–36.9; O2SAT 96–100
[2020-10-22] MEDS: Morphine Sulfate 2 MG/ML CARTRIDGE IVPUSH ×3 (01:21→21:55)
[2020-10-22 06:26] LABS: MANUAL DIFF FLAG NO
[2020-10-22 06:48] LABS: Basophils Absolute Auto 0.1 X10*3/uL (0.0-0.2); Basophils Percent Auto 1.4 % (0-2); Eosinophils Absolute Auto 0.5 X10*3/uL (0.0-0.4); Eosinophils Percent Auto 5.8 % (0-4); Hematocrit 33.2 % (37-47); Hemoglobin 10.7 g/dl (12.0-16.0); Imm Gran Abs Auto 0.03 X10*3/uL (0.00-0.03); Imm Gran Pct Auto 0.4 % (0.0-0.4); Lymphocytes Percent Auto 24.7 % (20-40); Mean Corpuscular HGB Conc 32.2 g/dl (31.0-35.0); Mean Corpuscular Hemoglobin 27.9 pg (27.0-33.0); Mean Corpuscular Volume 86.5 fL (80-98); Mean Platelet Volume 11.5 fL (9.4-12.3); Monocytes Percent Auto 12.8 % (2-11); Neutrophils Absolute Auto 4.4 X10*3/uL (2.0-8.3); Neutrophils Percent Auto 54.9 % (45-73); Platelet Count 296 X10*3/uL (160-400); Red Blood Count 3.84 X10*6/uL (4.20-5.50); Red Cell Distribution Width 14.9 % (11.0-16.0); White Blood Count 7.9 X10*3/uL (4.8-10.8)
[2020-10-22 07:01] LABS: Anion Gap 15 (12-20); Blood Urea Nitrogen 25 mg/dL (9-16); Calcium 9.5 mg/dL (8.4-10.2); Carbon Dioxide 26 mmol/L (22-29); Chloride 100 mmol/L (96-108); Creatinine Clr Calc Pharmacy 54.1; Estimated Glomerular Filt Rate 57; Glucose Random 135 mg/dL (60-115); Potassium 4.4 mmol/L (3.3-5.1); Sodium 137 mmol/L (135-145)
[2020-10-22] MEDS: Metoprolol Tartrate 100 MG TABLET PO ×2 (08:12→21:55)
[2020-10-22] MEDS: Furosemide 40 MG TABLET PO (08:12)
[2020-10-22] MEDS: Levothyroxine Sodium 75 MCG TABLET PO (08:12)
[2020-10-22] MEDS: Losartan Potassium 25 MG TABLET PO (08:12)
[2020-10-22] MEDS: 0.9 % Sodium Chloride Flush 3 ML SYRINGE IVFLUSH ×2 (08:13→14:40)
[2020-10-22] MEDS: dilTIAZem HCL 60 MG TABLET 120 MG PO (08:13)
[2020-10-22] MEDS: oxyCODONE HCl Immed Release 5 MG TABLET PO (08:13)
[2020-10-22 08:30] LABS: Glucose, Whole Blood 109 mg/dL (60-115)
--- NOTE | 2020-10-22 10:18 | HO.PM.IMPN ---
Subjective Subjective Date of Service: 10/22/20 <Maribell Torre NP - Last Filed: 10/22/20 10:21> 10/22/20 <Thomas Ricci MD - Last Filed: 10/22/20 12:28> Interval History: seen and examined this AM pain improved after changing from IV morphine to IV dialudid but still very severe ROS General - no fevers or chills Cardiovascular - no chest pain Respiratory - no shortness of breath or cough Abdominal- no abdominal pain, nausea, vomiting, diarrhea MSk - back pain <Thomas Ricci MD - Last Filed: 10/22/20 12:28> Physical Exam Vital Signs: Vital Signs: Last Vital Signs Temp 97 F 10/22/20 07:58 Pulse 87 10/22/20 08:13 Resp 16 10/22/20 07:58 BP 116/68 10/22/20 08:13 Pulse Ox 100 10/22/20 07:58 Body Mass Index 23.9 <Maribell Torre NP - Last Filed: 10/22/20 10:21> Objective Data Current Medications Generic Name Dose Route Start Last Admin Trade Name Freq PRN Reason Stop Dose Admin Atorvastatin Calcium 10 mg 10/21/20 21:00 10/21/20 21:17 Atorvastatin Calcium 10 Mg Tablet PO 10 mg BEDTIME PAPO Administration Diltiazem HCl 120 mg 10/21/20 09:00 10/22/20 08:13 Diltiazem Hcl 60 Mg Tablet PO 120 mg DAILY PAPO Administration Protocol Furosemide 40 mg 10/21/20 09:00 10/22/20 08:12 Furosemide 40 Mg Tablet PO 40 mg DAILY PAPO Administration Protocol Hydromorphone HCl 0.5 mg 10/21/20 15:27 Hydromorphone Hcl 0.5 Mg/0.5 Ml Syringe IVPUSH Q4H PRN pain Insulin Human Lispro 0 unit 10/21/20 07:30 10/22/20 08:14 Insulin Lispro 100 Unit/Ml 3 Ml Vial SUBCUT Not Given [facility] Protocol Levothyroxine Sodium 75 mcg 10/21/20 09:00 10/22/20 08:12 Levothyroxine Sodium 75 Mcg Tablet PO 75 mcg DAILY PAPO Administration Losartan Potassium 25 mg 10/21/20 09:00 10/22/20 08:12 Losartan Potassium 25 Mg Tablet PO 25 mg DAILY PAPO Administration Protocol Metoprolol Tartrate 100 mg 10/21/20 09:00 10/22/20 08:12 Metoprolol Tartrate 100 Mg Tablet PO 100 mg BID PAPO Administration Protocol Morphine Sulfate 2 mg 10/20/20 22:01 10/22/20 01:21 Morphine Sulfate 2 Mg/Ml Cartridge IVPUSH 2 mg Q4H PRN Administration Pain, Severe (Pain Scale 7-10) Oxycodone HCl 5 mg 10/20/20 22:01 10/22/20 08:13 Oxycodone Hcl Immed Release 5 Mg Tablet PO 5 mg DAILY PRN Administration severe pain Pharmacy Consult 1 each 10/20/20 21:47 Consult Rx Vancomycin Dosing MISCELLANE DAILY PRN Consult order Risperidone 0.25 mg 10/21/20 21:00 10/21/20 21:17 Risperidone 0.25 Mg Tablet PO 0.25 mg BEDTIME PAPO Administration Sodium Chloride 3 ml 10/21/20 00:00 10/22/20 08:13 0.9 % Sodium Chloride Flush 3 Ml Syringe IVFLUSH 3 ml QSHIFT [facility] Administration Trazodone HCl 50 - 100 mg 10/20/20 22:01 Trazodone Hcl 50 Mg Tablet PO BEDTIME PRN insomnia <Maribell Torre NP - Last Filed: 10/22/20 10:21> Labs CBC & Chem 7: : 10/22/20 05:47 10/22/20 05:47 <Maribell Torre NP - Last Filed: 10/22/20 10:21> Assessment and Plan (1) Discitis of lumbosacral region: Status: Acute <Maribell Torre NP - Last Filed: 10/22/20 10:21> (2) Type 2 diabetes mellitus: Status: Acute <Maribell Torre NP - Last Filed: 10/22/20 10:21> (3) Hypothyroidism: Status: Inactive <Maribell Torre NP - Last Filed: 10/22/20 10:21> (4) Hypertension: Status: Acute <Maribell Torre NP - Last Filed: 10/22/20 10:21> (5) Atrial fibrillation: Status: Acute <Maribell Torre NP - Last Filed: 10/22/20 10:21> (6) Lumbar back pain: Status: Acute <Maribell Torre NP - Last Filed: 10/22/20 10:21> Assessment and Plan: 65 year old women with AF on Eliquis, hypothyroidism, HLD, CHF and history of recurrent lumbar spine discitis for which she just completed 6 weeks of IV Vanco and is now on PO Doxycycline, she is here with worsening back pain and MRI and CT shows persistent disiitis but no drainable collection. Discitis/osteomyelitis of Spine, No neuro symptoms, no drainable collection -Stop antibiotics -IR for disc aspiration tomorrow. NPO after midnight -ID consult -pain management AFIB. rate controlled, on diltiazem, Metoprolol -hold Eliquis for IR procedure HTN -controlled, continue Metoprolol, Ditiazem, Losartan Hypothyroidism -continue Levothyroxine Hyperlipidemia -continue Lipitor Dispo. Continue medical evaluation Attending: Dr. Ricci <Maribell Torre NP - Last Filed: 10/22/20 10:21> (7) Intractable back pain: Status: Acute <Maribell Torre NP - Last Filed: 10/22/20 10:21> Assessment and Plan: Attending Attestation: Patient seen and examined independently and I was present during pollard portion of E/M service. Agree with Lacey Torre NP's history, physical, assessment, and plan. Exam Neuro - no weakness in the b/l LE; reports sensation in tact. MSK - Tenderness the palapation on lumbar region Intractable back pain persists, but did improve after change of morphine to dilaudid. Concern over osteo/disciitis. Has completed several rounds of antibiotics. Now on hold per ID recs -- need to get tissue sampling prior to making decision on antibiotic course. Unfortunately, she is on Eliquis and IR unable to complete today as it has been less than 72 hours from last Eliquis dose. Will continue holding Eliquis and plan for tomorrow. Patient needs to remain hospitalized at this time for several reason -- primarily to get a definitive diagnosis of her findings on the imaging studies. Additionally, her pain remains uncontrolled and she needs IV pain control. <Thomas Ricci MD - Last Filed: 10/22/20 12:28>
[2020-10-22] MEDS: LORazepam 0.5 MG TABLET PO (10:28)
[2020-10-22 10:49] LABS: INTERNATIONAL NORM RATIO 1.4 (0.9-1.1); Prothrombin Time 16.2 SEC (10.8-13.0)
[2020-10-22 11:19] LABS: Vancomycin Trough 4.1 mcg/mL (10.0-20.0)
[2020-10-22 11:20] LABS: Glucose, Whole Blood 157 mg/dL (60-115)
[2020-10-22] MEDS: Insulin Lispro 100 UNIT/ML 3 ML VIAL SUBCUT (11:48)
[2020-10-22 16:17] LABS: Glucose, Whole Blood 129 mg/dL (60-115)
[2020-10-22 20:58] LABS: Glucose, Whole Blood 149 mg/dL (60-115)
[2020-10-22] MEDS: risperiDONE 0.25 MG TABLET PO (21:54)
[2020-10-22] MEDS: Atorvastatin Calcium 10 MG TABLET PO (21:54)
[2020-10-22] MEDS: traZODone HCL 50 MG TABLET PO (21:54)
[2020-10-23] VITALS: BP 120/76; PULSE 82; RESP 20; TEMP 36.6; O2SAT 99
[2020-10-23] MEDS: 0.9 % Sodium Chloride Flush 3 ML SYRINGE IVFLUSH ×3 (00:25→16:57)
[2020-10-23 04:00] VITALS: BP 131/57; PULSE 94; RESP 18; TEMP 37.1; O2SAT 98
[2020-10-23 04:46] LABS: MANUAL DIFF FLAG NO
[2020-10-23 04:50] LABS: Basophils Absolute Auto 0.1 X10*3/uL (0.0-0.2); Basophils Percent Auto 1.3 % (0-2); Eosinophils Absolute Auto 0.4 X10*3/uL (0.0-0.4); Eosinophils Percent Auto 4.9 % (0-4); Hematocrit 33.3 % (37-47); Hemoglobin 10.9 g/dl (12.0-16.0); Imm Gran Abs Auto 0.02 X10*3/uL (0.00-0.03); Imm Gran Pct Auto 0.3 % (0.0-0.4); Lymphocytes Percent Auto 28.5 % (20-40); Mean Corpuscular HGB Conc 32.7 g/dl (31.0-35.0); Mean Corpuscular Volume 85.6 fL (80-98); Mean Platelet Volume 11.4 fL (9.4-12.3); Monocytes Absolute Auto 0.8 X10*3/uL (0.1-1.2); Monocytes Percent Auto 10.6 % (2-11); Neutrophils Absolute Auto 3.9 X10*3/uL (2.0-8.3); Neutrophils Percent Auto 54.4 % (45-73); Platelet Count 269 X10*3/uL (160-400); Red Blood Count 3.89 X10*6/uL (4.20-5.50); Red Cell Distribution Width 14.9 % (11.0-16.0); White Blood Count 7.2 X10*3/uL (4.8-10.8)
[2020-10-23 05:07] LABS: INTERNATIONAL NORM RATIO 1.3 (0.9-1.1); Prothrombin Time 14.9 SEC (10.8-13.0)
[2020-10-23 05:30] LABS: Anion Gap 15 (12-20); Blood Urea Nitrogen 29 mg/dL (9-16); Calcium 9.5 mg/dL (8.4-10.2); Carbon Dioxide 20 mmol/L (22-29); Chloride 104 mmol/L (96-108); Creatinine Clr Calc Pharmacy 54.1; Estimated Glomerular Filt Rate 57; Glucose Random 160 mg/dL (60-115); Potassium 3.7 mmol/L (3.3-5.1); Sodium 135 mmol/L (135-145)
[2020-10-23 07:35] VITALS: BP 145/85; PULSE 70; RESP 18; TEMP 36.4; O2SAT 98
[2020-10-23 07:57] LABS: Glucose, Whole Blood 138 mg/dL (60-115)
[2020-10-23] MEDS: Morphine Sulfate 2 MG/ML CARTRIDGE IVPUSH ×2 (07:59→16:56)
[2020-10-23] MEDS: Levothyroxine Sodium 75 MCG TABLET PO (09:03)
[2020-10-23] MEDS: Metoprolol Tartrate 100 MG TABLET PO ×2 (09:03→21:32)
[2020-10-23] MEDS: LORazepam 0.5 MG TABLET PO (09:03)
[2020-10-23] MEDS: Losartan Potassium 25 MG TABLET PO (09:03)
[2020-10-23] MEDS: dilTIAZem HCL 60 MG TABLET 120 MG PO (09:43)
--- NOTE | 2020-10-23 12:57 | HO.RADPN ---
RADIOLOGY Narrative Narrative: CT guided L4-5 disc aspiration for C+S and gram stain.
[2020-10-23] MEDS: Lidocaine HCl 1 % MPF 5 ML VIAL 10 ML SUBCUT (13:20)
[2020-10-23 15:16] VITALS: BP 142/67; PULSE 84; RESP 16; TEMP 36.1; O2SAT 99
--- NOTE | 2020-10-23 15:28 | PC.NURSE ---
1430 band aid dsg on right lower back d@I
--- NOTE | 2020-10-23 15:43 | HO.PM.IMPN ---
Subjective Subjective Date of Service: 10/23/20 <Maribell Torre NP - Last Filed: 10/23/20 15:49> 10/23/20 <Thomas Ricci MD - Last Filed: 10/23/20 17:22> Interval History: Follow up discitis. Some back pain noted. feeling ok post procedure. <Maribell Torre NP - Last Filed: 10/23/20 15:49> Physical Exam Vital Signs: Vital Signs: Last Vital Signs Temp 96.9 F 10/23/20 15:16 Pulse 84 10/23/20 15:16 Resp 16 10/23/20 15:16 BP 142/67 H 10/23/20 15:16 Pulse Ox 99 10/23/20 15:16 Body Mass Index 23.9 <Maribell Torre NP - Last Filed: 10/23/20 15:49> Appearing in no acute distress lung sounds are clear to auscultation heart regular rate rhythm, clear S1, S2 positive bowel sounds, abdomen is soft, nontender neuro patient is alert x3, no focal deficits <Maribell Torre NP - Last Filed: 10/23/20 15:49> Objective Data Current Medications Generic Name Dose Route Start Last Admin Trade Name Freq PRN Reason Stop Dose Admin Atorvastatin Calcium 10 mg 10/21/20 21:00 10/22/20 21:54 Atorvastatin Calcium 10 Mg Tablet PO 10 mg BEDTIME PAPO Administration Diltiazem HCl 120 mg 10/21/20 09:00 10/23/20 09:43 Diltiazem Hcl 60 Mg Tablet PO 120 mg DAILY PAPO Administration Protocol Furosemide 40 mg 10/21/20 09:00 10/23/20 10:25 Furosemide 40 Mg Tablet PO Not Given DAILY PAPO Protocol Hydromorphone HCl 0.5 mg 10/21/20 15:27 Hydromorphone Hcl 0.5 Mg/0.5 Ml Syringe IVPUSH Q4H PRN pain Insulin Human Lispro 0 unit 10/21/20 07:30 10/23/20 12:17 Insulin Lispro 100 Unit/Ml 3 Ml Vial SUBCUT Not Given QIDACHS [facility] Protocol Levothyroxine Sodium 75 mcg 10/21/20 09:00 10/23/20 09:03 Levothyroxine Sodium 75 Mcg Tablet PO 75 mcg DAILY PAPO Administration Losartan Potassium 25 mg 10/21/20 09:00 10/23/20 09:03 Losartan Potassium 25 Mg Tablet PO 25 mg DAILY PAPO Administration Protocol Metoprolol Tartrate 100 mg 10/21/20 09:00 10/23/20 09:03 Metoprolol Tartrate 100 Mg Tablet PO 100 mg BID PAPO Administration Protocol Morphine Sulfate 2 mg 10/20/20 22:01 10/23/20 07:59 Morphine Sulfate 2 Mg/Ml Cartridge IVPUSH 2 mg Q4H PRN Administration Pain, Severe (Pain Scale 7-10) Oxycodone HCl 5 mg 10/20/20 22:01 10/22/20 08:13 Oxycodone Hcl Immed Release 5 Mg Tablet PO 5 mg DAILY PRN Administration severe pain Pharmacy Consult 1 each 10/20/20 21:47 Consult Rx Vancomycin Dosing MISCELLANE DAILY PRN Consult order Risperidone 0.25 mg 10/21/20 21:00 10/22/20 21:54 Risperidone 0.25 Mg Tablet PO 0.25 mg BEDTIME PAPO Administration Sodium Chloride 3 ml 10/21/20 00:00 10/23/20 07:59 0.9 % Sodium Chloride Flush 3 Ml Syringe IVFLUSH 3 ml QSHIFT [facility] Administration Trazodone HCl 50 - 100 mg 10/20/20 22:01 10/22/20 21:54 Trazodone Hcl 50 Mg Tablet PO 50 mg BEDTIME PRN Administration insomnia <Maribell Torre NP - Last Filed: 10/23/20 15:49> Labs CBC & Chem 7: : 10/23/20 04:20 10/23/20 04:20 <Maribell Torre NP - Last Filed: 10/23/20 15:49> Microbiology Microbiology Results: Microbiology 10/21/20 11:03 Blood - Venous Blood Culture - Preliminary No growth after 48 hours. 10/21/20 11:16 Blood - Venous Blood Culture - Preliminary No growth after 48 hours. <Maribell Torre NP - Last Filed: 10/23/20 15:49> Assessment and Plan (1) Intractable back pain: Status: Acute <Maribell Torre NP - Last Filed: 10/23/20 15:49> Assessment and Plan: 65 year old women with AF on Eliquis, hypothyroidism, HLD, CHF and history of recurrent lumbar spine discitis for which she just completed 6 weeks of IV Vanco and is now on PO Doxycycline, she is here with worsening back pain and MRI and CT shows persistent disiitis but no drainable collection. Discitis/osteomyelitis of Spine, No neuro symptoms, no drainable collection -s/p disc aspiration -cytology pending. If negative will not require antibiotics. -continue to hold antibiotics -ID following -pain management -pt consult AFIB. rate controlled, on diltiazem, Metoprolol -verify with IR for restart of xarelto post procedure HTN -controlled, continue Metoprolol, Ditiazem, Losartan Hypothyroidism -continue Levothyroxine Hyperlipidemia -continue Lipitor Dispo. Continue medical evaluation, discharge pending disc aspiration results. PT consult Attending: Dr. Ricci <Maribell Torre NP - Last Filed: 10/23/20 15:49> Attending Attestation: Patient seen and examined independently and I was present during plolard portion of E/M service. Agree with Lacey Torre NP's history, physical, assessment, and plan. Seen this AM prior to procedure. Is anxious relating to procedure. Will await culture and gram stain results. Will discuss with ID about discharge antibiotics. Increase oxycodone frequency and decrease IV morphine/dilaudid frequency in anticipation of transition to oral pain meds upon discharge. Get PT evaluation as well. <Thomas Ricci MD - Last Filed: 10/23/20 17:22>
[2020-10-23 17:03] LABS: Glucose, Whole Blood 185 mg/dL (60-115)
[2020-10-23] MEDS: Insulin Lispro 100 UNIT/ML 3 ML VIAL SUBCUT ×2 (17:25→21:31)
[2020-10-23 19:30] VITALS: BP 111/62; PULSE 89; RESP 18; TEMP 36.4; O2SAT 98
[2020-10-23 19:37] LABS: TS Negative Control Passed; TS Panel A 0; TS Panel B 0; TS Positive Control Passed; TSpotTB Negative (SeeBelow)
[2020-10-23 20:16] LABS: Glucose, Whole Blood 276 mg/dL (60-115)
[2020-10-23 21:32] VITALS: BP 111/62; PULSE 89
[2020-10-23] MEDS: Atorvastatin Calcium 10 MG TABLET PO (21:33)
[2020-10-23] MEDS: oxyCODONE HCl Immed Release 5 MG TABLET PO (21:33)
[2020-10-23] MEDS: risperiDONE 0.25 MG TABLET PO (21:33)
[2020-10-24] MEDS: HYDROmorphone HCl 0.5 MG/0.5 ML SYRINGE IVPUSH ×2 (00:18→05:45)
[2020-10-24] MEDS: 0.9 % Sodium Chloride Flush 3 ML SYRINGE IVFLUSH ×2 (00:19→08:43)
[2020-10-24 00:29] VITALS: BP 104/68; PULSE 92; RESP 16; TEMP 36.1; O2SAT 99
[2020-10-24 03:52] VITALS: BP 118/70; PULSE 94; RESP 16; TEMP 36.6; O2SAT 94
[2020-10-24 08:00] VITALS: BP 112/79; PULSE 95; RESP 15; TEMP 36.3; O2SAT 92
[2020-10-24] MEDS: Levothyroxine Sodium 75 MCG TABLET PO (08:42)
[2020-10-24] MEDS: Metoprolol Tartrate 100 MG TABLET PO (08:42)
[2020-10-24] MEDS: dilTIAZem HCL 60 MG TABLET 120 MG PO (08:43)
[2020-10-24] MEDS: Losartan Potassium 25 MG TABLET PO (08:43)
[2020-10-24] MEDS: Furosemide 40 MG TABLET PO (08:43)
[2020-10-24 08:48] LABS: Glucose, Whole Blood 170 mg/dL (60-115)
[2020-10-24] MEDS: Insulin Lispro 100 UNIT/ML 3 ML VIAL SUBCUT ×2 (08:54→12:12)
[2020-10-24] MEDS: oxyCODONE HCl Immed Release 5 MG TABLET PO (09:30)
[2020-10-24 10:11] VITALS: BP 112/79; PULSE 95; O2SAT 92
[2020-10-24 11:19] VITALS: BP 124/65; PULSE 82; RESP 18; TEMP 36.3; O2SAT 93
--- NOTE | 2020-10-24 11:48 | PM.DS ---
DS: Providers Provider Date of Service: 10/24/20 Date of admission: 10/20/20 21:43 Primary care physician: Jessie Sorensen MD Consults: 10/21/20 06:50 Consult to Infectious Diseases Routine Consulting Provider: Jael Westfall Reason for consultation: Osteomylitis of spine DS: Diagnosis Discharge Diagnosis (1) Intractable back pain: Status: Acute (2) Osteomyelitis: Status: Acute DS: Medications Discharge Medications Home Medications: Home Medications Medication Instructions Recorded Confirmed apixaban [Eliquis] 1 tab PO BID 10/20/20 10/20/20 diltiazem HCl 1 cap PO DAILY 10/20/20 10/20/20 diltiazem HCl [Cartia XT] 1 cap PO DAILY 10/20/20 10/20/20 doxycycline hyclate 1 cap PO BID 10/20/20 10/20/20 furosemide 1 tab PO DAILY 10/20/20 10/20/20 levothyroxine 1 tab PO DAILY 10/20/20 10/20/20 losartan 1 tab PO DAILY 10/20/20 10/20/20 metoprolol tartrate 1 tab PO BID 10/20/20 10/20/20 oxycodone 1 tab PO DAILY PRN 10/20/20 10/20/20 risperidone 1 cap PO BEDTIME 10/20/20 10/20/20 simvastatin 1 tab PO BEDTIME 10/20/20 10/20/20 trazodone 1 - 2 tab PO BEDTIME PRN 10/20/20 10/20/20 metformin 2 tab PO QPM 10/21/20 10/21/20 DS: Summary Hospital Course Hospital Course: THis is a 65-year-old female with a past medical history of HTN, HLD, diabetes, AFib with RVR on Eliquis, CHF. She was admitted on June 20 to at that time had diabetic foot/osteomylitis and underwent left first metatarsal ampuation and also was treated with Ceftriaxone for 4 weeks for Strep indermedius during that same admission. She was readmitted on August 14, 2020 and discharge Febrarly 8 with L4-L5 diskitis/osteomyelitis and was treated with IV Vanco for 6 weeks ending 09/24/20 and subsequently put on PO doxycyline. She presents today with increasing back pain worse with walking but no other neurological changes such as weakness, numbness in leg, no loss of bowel or bladder function. CT lumbar spine shows findings consistent with discitis osteomyelitis at the L4-L5 level,similar when compared to prior from August 14. MRI is done result pending. She has no fever. Back Pain. Imaging showing Discitis/osteomyelitis of Spine which had been seen previously and treated with IV vancomycin. The patient had no neurological symptoms. No drainable fluid collection was seen on imaging. She underwent aspiration of the L4-L5 on 10/23. She was seen in consultation by Infectious Diseases who did not want to repeat an additional course of antibiotics with out positive culture data from disc space given previous treatment without improvement and to evaluate for non-infectious causes. Fungal culture, acid-fast culture, pathology are pending at this time. T-spot was negative. Gram stain with no organisms seen. Routine culture of fluid shows no growth to date. Blood cultures have been negative. ID has confirmed no further antibiotics are indicated at time of discharge. Patient was evaluated by Physical therapy who recommended home PT. She should follow up with PCP to follow up pending lab work. Time Spent with Patient Time attestation: Total time spent providing and/or coordinating discharge services: Discharge coordination time: Greater than 30 minutes Physical Exam Vital Signs: Vital Signs: Last Vital Signs Temp 97.3 F 10/24/20 11:19 Pulse 82 10/24/20 11:19 Resp 18 10/24/20 11:19 BP 124/65 10/24/20 11:19 Pulse Ox 93 10/24/20 11:19 Body Mass Index 23.9 Const: Nutritional Appearance: well nourished Orientation/consciousness: patient oriented x3 HENMT: Head: Yes normocephalic and Yes atraumatic Eyes: Sclerae: sclerae normal Resp: Effort & Inspection: normal respiratory effort and no respiratory distress Cardio: Rate: regular rate GI: Palpation (GI): Soft to palpation and nontender Neuro: General: patient oriented x3 Cranial nerves: Yes CN's II-XII intact bilaterally and Yes Bilaterally intact EOM present DS: Data Data Completed and Pending Completed studies during hospitalization [Text1]: Procedures Pending studies at discharge: Pending at discharge 10/24/20 08:29 Cytology [PTH] Stat Acid fast and fungal culture, pathology of disc aspirate Labs on day of discharge: Laboratory Results - last 24 hr 10/21/20 10/23/20 10/23/20 11:16 16:59 20:13 POC Glucose 185 H 276 H TB Test (T-Spot) Com Negative TB Test Nil Control Passed TB Test Panel A 0 TB Test Panel B 0 TB Test Positive Cntrl Passed 10/24/20 08:44 POC Glucose 170 H TB Test (T-Spot) Com TB Test Nil Control TB Test Panel A TB Test Panel B TB Test Positive Cntrl Preliminary micro results at discharge 10/23/20 13:03 Routine Culture - Preliminary Spine No growth to date. Anaerobic Culture - Preliminary No growth to date. 10/21/20 11:03 Blood Culture - Preliminary Blood - Venous No growth after 48 hours. 10/21/20 11:16 Blood Culture - Preliminary Blood - Venous No growth after 48 hours. Discharge Plan Discharge Patient Disposition: Home Health Service Discharge Diagnosis: Back pain Referrals: [facility] [Outside] - 1 Day (RESUMPTION OF RESIDENTIAL AND HOME PHYSICAL THERAPY. IF YOU HAVE NOT HEARD FROM [place] BY NOON ON 10/25/20 PLEASE CALL ABOVE NUMBER) Jessie Orourke MD [Primary Care Provider] - 1 Week Discharge Medications: Continued furosemide 40 mg tablet 1 tab PO DAILY RF: 0 trazodone 50 mg tablet 1 - 2 tab PO BEDTIME PRN (Reason: insomnia) RF: 0 metoprolol tartrate 100 mg tablet 1 tab PO BID RF: 0 simvastatin 10 mg tablet 1 tab PO BEDTIME RF: 0 risperidone 0.25 mg tablet 1 cap PO BEDTIME RF: 0 levothyroxine 75 mcg tablet 1 tab PO DAILY RF: 0 diltiazem HCl 120 mg tablet 1 cap PO DAILY RF: 0 losartan 25 mg tablet 1 tab PO DAILY RF: 0 Eliquis 5 mg tablet 1 tab PO BID RF: 0 metformin 1,000 mg tablet 2 tab PO QPM RF: 0 Changed oxycodone 5 mg tablet 5 mg PO Q8H PRN (Reason: severe pain) Qty: 30 RF: 0 Discontinued doxycycline hyclate 100 mg capsule 1 cap PO BID RF: 0 diltiazem HCl [Cartia XT] 120 mg capsule,extended release 24hr 1 cap PO DAILY RF: 0 Discharge Orders: Discharge Order (Routine); Ordered 10/24/20 Ordered By: Marcella Casarez Diet: advance to usual diet Activity on Discharge: As tolerated Stand Alone Forms: Patient Portal Discharge page Care Plan Goals: See Below Health Concerns: Back pain Plan of Treatment: Back pain. Some lab work is pending at the time of discharge. You will be going home with physical therapy and pain medication. Please call your PCP to follow up. Assessment: See discharge summary
[2020-10-24 11:59] LABS: Glucose, Whole Blood 269 mg/dL (60-115)
[2020-10-24] MEDS: Docusate Sodium 100 MG CAPSULE PO (12:28)
--- NOTE | 2020-10-24 13:07 | MHC.CM.PN ---
IMM 10/24/20, PT DISCHARGING HOME W/[facility]TION OF [facility] FOR SN AND HOME PT, PT'S SISTER TO TRANSPORT
== END 2020-10-24 14:56 | disposition home health service (06) | DRG 629 ==
LOC: HO.ED 20:33 → HO.EDOVER 21:59 → HO.IMC 10-21 05:21 → HO.S3 10-23 08:01
PROVIDERS: Internal Medicine; Nurse Practitioner Acute Care; Nurse Practitioner Family; Physician Assistant; Radiology Diagnostic Radiology; Admitting Provider Internal Medicine; Emergency Provider Emergency Medicine Emergency Medical Services; PCP Internal Medicine; Visit Provider Family Medicine
PROC: 0Q903ZX Drainage of Lumbar Vertebra, Percutaneous Approach, Diagnostic (ICD-10-PCS; principal; 2020-10-23 10:30)
DX: E11.69 Type 2 diabetes mellitus with other specified complication (principal); M46.26 Osteomyelitis of vertebra, lumbar region; M46.47 Discitis, unspecified, lumbosacral region; I48.91 Unspecified atrial fibrillation; E03.9 Hypothyroidism, unspecified; Z20.822 Contact with and (suspected) exposure to COVID-19; Z87.891 Personal history of nicotine dependence; Z88.0 Allergy status to penicillin; Z88.2 Allergy status to sulfonamides; Z79.01 Long term (current) use of anticoagulants; Z79.84 Long term (current) use of oral hypoglycemic drugs; Z79.890 Hormone replacement therapy; Z79.899 Other long term (current) drug therapy
CPT/HCPCS: 10160; 36415; 71045; 72132; 72158; 80048; 80202; 81003; 82947; 85025; 85610; 85652; 86140; 86481; 87040; 87071; 87073; 87102; 87116; 87205; 87635; 88173; 96374; 96375; 97110; 97116; 97162; 99152; 99153; 99285; 99291; A9585; J1170; J2060; J2270; J2405; J3370; Q9967

== ENCOUNTER → 2020-11-05 10:24 | Outpatient (REF) | payer MEDICARE, SELFPAY ==
--- NOTE | 2020-11-05 10:28 | CA_ITS ---
Transthoracic Echocardiogram Patient (Last, First, Middle): Zara Hoffman, Gender: Female Date of : 1955 Age: 65 Procedure Date: 11/05/2020 Procedure Type: Transthoracic Echocardiogram Location: OP Height: 170.18 cm Weight: 70.31 kg BSA: 1.81 m2 Heart Rate: bpm BP: 120 / 70 mmHg Dental Laboratory Manager: AMITA Referring MD: Valerie Steele COMPOSITION MIXER-Danae Symptoms: I42.9 - Cardiomyopathy, unspecified Study Quality: Fair ECG Rhythm: Atrial Fibrillation Conclusions: - 1. LV systolic function appears to be mildly depressed Findings Left Ventricle Normal left ventricular cavity size. There is normal left ventricular wall thickness. The left ventricular systolic function is mildly decreased. The visually estimated ejection fraction is between 45-50%. Diastolic function is indeterminate on the basis of available data. Pericardium/Pleural There is no evidence of pericardial effusion. Prior Study Comparison No significant change compared to prior study dated: 08/16/2020. Measurements 2D Linear Measurements IVSd: 0.86 0.6-0.9/0.6-1.0 cm LVIDd: 4.02 3.9-5.3/4.2-5.9 cm LVIDd Index: 2.22 2.4-3.2/2.2-3.1 cm/m2 LVIDs: 3.05 2.0-3.6 cm LVPWd: 0.86 0.7-1.1 cm LV Mass: 129.53 67-162/88-224 g LV Mass Index: 71.56 43-95/49-115 g/m2 2D Systolic Function EF 4C: 52.20 >55% EF 2C: 60.00 >55% Mitral Valve MV Pk E: 1.02 MV Decel Time: 180.00 PHT: 53.00 MVA PHT: 4.15 Decel [place]: 5.70 Diastolic Function MV Pk E: 1.02 Tricuspid Valve RA Press: 3.00 Updated in Other Vendor System with Status of Final Jeremias Laird MD electronically signed on 11/06/2020 12:27:47 PM with status of Final
== END ==
LOC: HO.CARD 10:24
PROVIDERS: Visit Provider Nurse Practitioner Family
DX: I42.9 Cardiomyopathy, unspecified (principal)
CPT/HCPCS: 93308

== ENCOUNTER → 2020-11-06 10:41 | Outpatient (BNVA) | payer MEDICARE, SELFPAY | PROVIDERS: PCP Internal Medicine; Visit Provider Nurse Practitioner Family | DX: I48.0 Paroxysmal atrial fibrillation (principal); I42.9 Cardiomyopathy, unspecified; I10 Essential (primary) hypertension; Z79.899 Other long term (current) drug therapy | CPT/HCPCS: Q3014 ==

== ENCOUNTER → 2020-12-24 13:05 | Outpatient (REF) | payer MEDICARE, SELFPAY ==
--- NOTE | 2020-12-24 13:08 | ECG_ITS ---
Hook-up date: 2020-12-24 13:20:00 Duration: 25:50:00 Test Indications: UNSPEC. ATRIAL FIB Medications: 402112 QRS complexes 7547 Ventricular ectopics which represent 4 % of total QRS comp. * Supraventricular ectopics which represent % of total QRS comp. * Paced QRS complexs which represent % of total QRS comp. VENTRICULAR ECTOPY 4841 Isolated 40 Bigeminal Cycles 715 Couplets 332 Runs 1276 Beats in Runs 11 Beats LONGEST at 196 BPM at 15:43:59 2020-12-24 4 Beats FASTEST at 218 BPM at 16:40:07 2020-12-24 SUPRAVENTRICULAR ECTOPY * Isolated * Couplets * Runs * Beats in Runs * Beats LONGEST at * BPM at :: -- * Beats FASTEST at * BPM at :: -- HEART RATES 65 MIN at 05:02:35 2020-12-25 109 AVG 217 MAX at 16:32:50 2020-12-24 LONGEST RR 1.3600 secs at 03:21:38 2020-12-25 S-T LEVELS Channel 1 - 128 mm at 13:20:00 2020-12-24 - 128 mm at 13:20:00 2020-12-24 Channel 2 - 128 mm at 13:20:00 2020-12-24 - 128 mm at 13:20:00 2020-12-24 Channel 3 - 128 mm at 03:23:91 -- - 128 mm at 03:23:91 Basic rhythm Atrial fibrillation No long pause or profound bradycardia Frequent Atrial fibrillation with rapid ventricular response , average HR of 109 bpm with fastest rate of 217 bpm 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
== END ==
LOC: HO.CARD 13:05
PROVIDERS: Visit Provider Nurse Practitioner Family
DX: I48.91 Unspecified atrial fibrillation (principal)
CPT/HCPCS: 93225; 93226

== ENCOUNTER → 2020-12-31 08:12 | Outpatient (REF) | payer MEDICARE, SELFPAY ==
--- NOTE | ~2020-12-31 | NM_ITS ---
Lexiscan Myocardial perfusion study Indication: Cardiomyopathy, vascular risk factors, assess for coronary disease and ischemia Technique: The patient was brought in for a Lexiscan perfusion study on 12/31/2020 and was injected 0.4 mg of Lexiscan intravenously. Within a minute of this injection 25 mCi of sestamibi was given intravenously. Images were obtained using the SPECT gamma camera interlaced with the gating device. Images were obtained in supine position. Resting perfusion study was performed on 01/01/2021. Patient was administered 25 mCi of sestamibi intravenously at rest. Images were then obtained in supine position. Total DLP 111mGy-cm. Images were processed with the software and compared side to side in short axis, horizontal long axis and vertical long axis views. Findings: Raw acquisition reviewed. Possibly motion. The stress perfusion study showed no significant perfusion abnormality. Both uncorrected as well as CT attenuation corrected images were reviewed. The gated study shows normal LV systolic function with calculated LVEF of 64%. LV cavity is normal in size. The gated study shows normal wall thickening and contraction of segments. Resting study shows no significant perfusion abnormality. Gating at rest reveals normal wall motion with ejection fraction at 61%. The findings are consistent with no reversible or fixed perfusion abnormality. NM/NM lisa perf SPECT rest & str Impression: 1. Myocardial perfusion imaging study shows normal myocardial perfusion. No evidence of any ischemia or infarction. 2. Gated LVEF is 64% during stress and 61% during rest. 3. Transient ischemic dilatation not present. EKG component of the test reported separately.
--- NOTE | 2020-12-31 08:15 | CA_ITS ---
Acquisition Time: 2020-12-31 08:21:43 Total Exercise Time: 00:02:00 Test Indications: SOB Medications: SEE CHART Protocol: LEXISCAN Max HR: 105 BPM 68% of Pred: 153 BPM Max BP: 112/074 mmHG Max Work Load: 1.0 METS Pharmacological stress test with Lexiscan injection, while sitting and kicking her legs, without anginal symptoms, with isolated PVC, with normotensive response to injection, with nondiagnostic EKG for ischemia. In recovery she reported nausea that was treated with Aminophylline 75mg IVP to reverse Lexiscan with resolution of symptom. Nuclear images pending. Test reviewed with Dr Laird. Referred By: Valerie Steele Overread By: VALERIE STEELE
== END ==
LOC: HO.CARD 08:12
PROVIDERS: Visit Provider Nurse Practitioner Family
DX: I10 Essential (primary) hypertension (principal); I42.9 Cardiomyopathy, unspecified; I48.91 Unspecified atrial fibrillation
CPT/HCPCS: 78452; 93017; A9500; J0280; J2785

== ENCOUNTER → 2021-02-13 14:06 | Outpatient (BNVA) | payer MEDICARE, SELFPAY | PROVIDERS: PCP Internal Medicine; Referring Provider Internal Medicine; Visit Provider Internal Medicine Cardiovascular Disease | DX: I48.91 Unspecified atrial fibrillation (principal) | CPT/HCPCS: 99212 ==

== ENCOUNTER → 2021-03-25 13:53 | Outpatient (BNVA) | payer MEDICARE, SELFPAY | PROVIDERS: PCP Internal Medicine; Visit Provider Nurse Practitioner Family | DX: I48.0 Paroxysmal atrial fibrillation (principal); I10 Essential (primary) hypertension; I42.9 Cardiomyopathy, unspecified | CPT/HCPCS: 93005; 99212 ==

== ENCOUNTER → 2021-08-20 13:09 | Outpatient (BNVA) | payer MEDICARE, SELFPAY | PROVIDERS: PCP Internal Medicine; Visit Provider Nurse Practitioner Family | DX: I48.0 Paroxysmal atrial fibrillation (principal); I42.9 Cardiomyopathy, unspecified; I10 Essential (primary) hypertension | CPT/HCPCS: 99212 ==

== ENCOUNTER → 2021-10-13 13:57 | Outpatient (REF) | payer MEDICARE, SELFPAY ==
--- NOTE | 2021-10-13 14:03 | CA_ITS ---
Transthoracic Echocardiogram Patient (Last, First, Middle): Zara Hoffman, Gender: Female Date of : 1955 Age: 66 Procedure Date: 10/13/2021 Procedure Type: Transthoracic Echocardiogram Location: OP Height: 170.18 cm Weight: 68.49 kg BSA: 1.79 m2 Heart Rate: bpm BP: 122 / 70 mmHg Government Affairs Fellow: TAZ Samayoa MD: Valerie JUDGE Co Founder: Jeremias Laird MD Symptoms: I42.9 - Cardiomyopathy, unspecified Study Quality: Good ECG Rhythm: Sinus Conclusions: - 1. Normal LV systolic function with grade 1 diastolic dysfunction 2. Normal cardiac valvular Doppler 3. Normal RV systolic pressure 4. No pericardial effusion Findings Left Ventricle The visually estimated ejection fraction is between 55-60%. Spectral Doppler is indicative of an impaired relaxation filling pattern. E/E prime ratio is <8, consistent with normal filling pressures. Evidence suggests grade I (mild) diastolic dysfunction. Right Ventricle Normal right ventricular cavity size and systolic function. Atria Both atria are normal in size. There is no evidence of interatrial shunt. Aortic Valve Normal aortic valve structure and function. There is no aortic valve stenosis. There is no aortic valve regurgitation. Mitral Valve Normal mitral valve structure and function. There is trace mitral valve regurgitation. There is no mitral valve stenosis. Pulmonic Valve The pulmonic valve was not well visualized. Tricuspid Valve Normal tricuspid valve structure. There is trace tricuspid valve regurgitation. The right ventricular systolic pressure is normal. The right ventricular systolic pressure is 29 mmHg. Normal right atrial pressure. There is no evidence of pulmonary hypertension. Great Vessels All visible segments of the aorta are normal in size. The pulmonary artery was not well visualized. Venous The inferior vena cava is normal in size and collapses greater than 50% with inspiration. Pericardium/Pleural There is no evidence of pericardial effusion. Prior Study Comparison Changes noted compared to prior study dated: 11/05/2020. LV systolic function is normalized Measurements 2D Linear Measurements IVSd: 1.07 0.6-0.9/0.6-1.0 cm LVIDd: 3.61 3.9-5.3/4.2-5.9 cm LVIDd Index: 2.02 2.4-3.2/2.2-3.1 cm/m2 LVIDs: 2.40 2.0-3.6 cm LVPWd: 1.02 0.7-1.1 cm LA Diam: 3.00 2.7-3.8/3.0-4.0 cm LAIDs Index: 1.68 1.5-2.3 cm/m2 LV Mass: 143.67 67-162/88-224 g LV Mass Index: 80.26 43-95/49-115 g/m2 LVOT Diam: 2.00 3.0+(-)1.3 cm 2D Systolic Function EF 4C: 57.30 >55% EF 2C: 63.60 >55% EF BiP: 59.40 >55% Mitral Valve MV Pk E: 0.52 MV PK A: 0.90 MV Decel Time: 258.00 E/A: 0.60 E'Lateral: 7.51 E'Medial: 5.00 E/E' Med: 10.40 E/E' Lat: 6.90 PHT: 75.00 MVA PHT: 2.93 Decel [place]: 2.01 Aortic Valve AoV Pk [place]: 1.28 AoV Mn [place]: 0.92 AoV VTI: 0.23 AoV Pk Grad: 7.00 Aov Mn Grad: 4.00 SATISH Cont.VTI: 2.37 LVOT LVOT Pk [place]: 0.83 LVOT Mn [place]: 0.62 LVOT VTI: 0.17 LVOT Pk Grad: 3.00 LVOT Mn Grad: 2.00 LVOT Diam: 2.00 LVOT Area: 3.14 Diastolic Function MV Pk E: 0.52 MV Pk A: 0.90 E/A: 0.60 E'Medial: 5.00 E/E' Med: 10.40 E' Laterial: 7.51 E/E' Lat: 6.90 Right Ventricle TAPSE (mm): 16.10 TVS' [place]: 8.92 Tricuspid Valve TR Pk [place]: 2.27 TR Pk Grad: 21.00 RA Press: 8.00 RVSP: 29.00 Great Vessels Aorta Sinus of Valsalva: 3.61 2.0-3.[address] [place]: 2.87 1.7-3.4 cm Ao Asc: 3.10 2.1-3.4 cm Ao Arch: 3.40 Updated in Other Vendor System with Status of Final Jeremias Laird MD electronically signed on 10/13/2021 4:57:15 PM with status of Final
== END ==
LOC: HO.CARD 13:57
PROVIDERS: Visit Provider Nurse Practitioner Family
DX: I42.9 Cardiomyopathy, unspecified (principal)
CPT/HCPCS: 93306

== ENCOUNTER → 2022-04-02 13:59 | Outpatient (BNVA) | payer OTHER, SELFPAY | PROVIDERS: PCP Nurse Practitioner Family; Visit Provider Nurse Practitioner Family | DX: I48.0 Paroxysmal atrial fibrillation (principal); I42.9 Cardiomyopathy, unspecified; I10 Essential (primary) hypertension | CPT/HCPCS: 93005 ==